=== PATIENT | male | born 1945 | race Hispanic/Latino ===

== ENCOUNTER 2016-08-31 10:46 | Observation (INO) | payer BC, MEDICARE, OTHER ==
--- NOTE | 2016-08-31 11:32 | ED PDOC ---
Arrival/HPI - General Time Seen by Provider: 08/31/16 11:09 Historian: Patient, Spouse - History of Present Illness Narrative History of Present Illness (Text): 08/31/16 11:34 Patient is a 71 year old male whose past medical history includes recently diagnosed esophageal CA, COPD (on 2L Home O2), and anxiety, who presents to the emergency department with headache, nausea, chills, and shortness of breath, worsening in the past few days. Patient states he has had these symptoms as far back as [facility] (two months ago) where he was evaluated at [facility]. Patient reports he had an endoscopy done about 3 weeks ago at [facility] where he had been on the list for a lung transplant for years (did not have transplant) and diagnosed with esophageal cancer while getting a routine imaging study. Patient reports he was admitted for low sodium at another hospital in [facility] over Weekend (two weeks ago) with similar symptoms as he is experiencing now. Over the past week he reports intermittent nausea associated with eating/drinking. He states last night he was able to eat dinner without difficulty. Patient states he saw his PMD the day after. Denies sore throat, chest pain, changes in bowel movements, diarrhea, abdominal pain, thyroid issues. PMD: Dr. Ruiz Time/Duration: < week Symptom Onset: Gradual Symptom Course: Unchanged Modifying Factors (Text): None Past Medical History - Provider Review Nursing Documentation Reviewed: Yes - Infectious Disease Hx of Infectious Diseases: None - Tetanus Immunization Tetanus Immunization: Unknown - Cardiac Hx Cardiac Disorders: No - Pulmonary Hx Respiratory Disorders: Yes Hx Chronic Obstructive Pulmonary Disease (COPD): Yes Hx Emphysema: Yes - Neurological Hx Neurological Disorder: No - HEENT Hx HEENT Disorder: No - Renal Hx Renal Disorder: No - Endocrine/Metabolic Hx Endocrine Disorders: No - Hematological/Oncological Hx Blood Disorders: No - Integumentary Hx Dermatological Disorder: Yes Hx Melanoma: Yes - Musculoskeletal/Rheumatological Hx Musculoskeletal Disorders: Yes Hx Arthritis: Yes Hx Back Pain: Yes Hx Falls: No Hx Fractures: Yes - Gastrointestinal Hx Gastrointestinal Disorders: No - Genitourinary/Gynecological Hx Genitourinary Disorders: No - Psychiatric Hx Psychophysiologic Disorder: No Hx Substance Use: No - Surgical History Hx Appendectomy: Yes - Anesthesia Hx Anesthesia: Yes Hx Anesthesia Reactions: No Hx Malignant Hyperthermia: No - Suicidal Assessment Feels Threatened In Home Enviroment: No Family/Social History - Physician Review Nursing Documentation Reviewed: Yes Family/Social History: Unknown Family HX Smoking Status: Former Smoker Hx Alcohol Use: Yes Hx Substance Use: No Hx Substance Use Treatment: No Allergies/Home Meds Allergies/Adverse Reactions: Allergies No Known Allergies Allergy (Verified 04/20/13 12:09) Home Medications: Home Meds Medication Instructions Recorded Confirmed Albuterol 0.09 mg IH Q6H 04/20/13 08/31/16 Alprazolam [Xanax] 0.25 mg PO BID PRN 04/20/13 08/31/16 Benzonatate 200 mg PO TID 04/20/13 08/31/16 Budesonide 0.5 mg IH DAILY 04/20/13 08/31/16 Calcium Carbonate/Vitamin D 1 tab PO DAILY 04/20/13 08/31/16 [Calcium 600/Vitamin D] Desloratadine [Clarinex] 5 mg PO DAILY 04/20/13 08/31/16 Diazepam [Valium] 5 mg PO DAILY 04/20/13 08/31/16 Doxycycline Hyclate [Vibra-Tabs] 100 mg PO DAILY 04/20/13 08/31/16 Fish Oil [[place]-3 Fish Oil] 1,200 mg PO DAILY 04/20/13 08/31/16 Fluticasone/Salmeterol [Advair 1 puff IH BID 04/20/13 08/31/16 250-50 Diskus] Multivitamin and Minerals1 1 tab PO DAILY 04/20/13 08/31/16 [Centrum] Promethazine/Codeine 1 tsp PO Q6H PRN 04/20/13 08/31/16 [Phenergan/Codeine Oral Syrup] Tiotropium [Spiriva] 18 mcg IH DAILY 04/20/13 08/31/16 Vitamin D 400 iu PO DAILY 04/20/13 08/31/16 ALPRAZolam [Xanax] 0.25 mg PO 08/31/16 Albuterol 0.083% [Albuterol 0.083% 08/31/16 Inhal Rylee (2.5 mg/3 ml) UD] Benzonatate 200 mg PO 08/31/16 Doxycycline Hyclate [Doryx] 100 mg PO 08/31/16 Fluticasone/Salmeterol 500/50 0 puff 08/31/16 [Advair Diskus 500/50] Levalbuterol Tartrate [Xopenex Hfa] 08/31/16 Levocetirizine Dihydrochloride 08/31/16 [Xyzal] Prednisone [Prednisone Intensol] 5 mg PO 08/31/16 Quinine Sulfate [Qualaquin] 08/31/16 Tiotropium [Spiriva] 18 mcg IH DAILY 08/31/16 08/31/16 Review of Systems - Review of Systems Constitutional: Fatigue, Other ("hot and cold") Eyes: absent: Vision Changes ENT: absent: Hearing Changes, Voice Changes, Sore Throat, Rhinorrhea Respiratory: SOB, Wheezing. absent: Cough Cardiovascular: Chest Pain, PEARSON. absent: Palpitations, Edema, Calf Pain Gastrointestinal: Nausea, Vomiting, Appetite Changes. absent: Abdominal Pain, Diarrhea, Hematochezia, Hematemesis, Food Intolerance Genitourinary Male: absent: Dysuria, Frequency Musculoskeletal: absent: Back Pain Skin: absent: Rash Neurological: Headache, Dizziness. absent: Focal Weakness Endocrine: Diaphoresis. absent: Polyuria, Polydipsia Hemo/Lymphatic: absent: Easy Bleeding, Easy Bruising Psychiatric: Anxiety, Depression. absent: Suicidal Ideation Physical Exam - Physical Exam Narrative Physical Exam (Text): Head: Atraumatic. Normocephalic. Eyes: PERRL. EOMI. Conjunctivae are not pale. ENT: Mucous membranes are moist and intact. Oropharynx is clear and symmetric. Neck: Supple. Full ROM. No JVD. No lymphadenopathy. No thyromegaly. Cardiovascular: Regular rate. Regular rhythm. Systolic murmur. Distal pulses are 2+ and symmetric. Pulmonary/Chest: Tachypneic. Diminished breath sounds bilaterally. Very mild wheezing Abdominal: Soft and non-distended. There is no tenderness. No rebound, guarding, or rigidity. No organomegaly. Good bowel sounds. Back: No CVA tenderness. Extremities: Generalized bony pain to bilateral lower extremities with no erythema or edema. No cyanosis. No clubbing. Full range of motion in all extremities. No calf tenderness. Skin: Skin is warm and dry. No petechiae. No purpura. Neurological: Alert, awake, and oriented to person, place, time, and situation. Normal speech. Motor and sensory intact. Psychiatric: Good eye contact. Normal interaction, affect, and behavior. 08/31/16 13:20 Vital Signs Reviewed: Yes Vital Signs Temp Pulse Resp BP Pulse Ox 08/31/16 11:42 98.8 F 85 22 122/58 L 96 08/31/16 10:47 98.4 F 89 20 122/58 L 95 Temperature: Afebrile Blood Pressure: Normal Pulse: Regular Respiratory Rate: Tachypneic Appearance: Positive for: Non-Toxic, Comfortable, Ill-Appearing, Cachectic Pain Distress: Mild Mental Status: Positive for: Alert and Oriented X 3 Medical Decision Making ED Course and Treatment: Differential Diagnosis included but are not limited to: Sepsis vs gastritis vs CAD vs metabolic disorder, vs. malignancy, vs. COPD Plan: Will obtain Chest X-ray, EKG, and labs. Communicate with PMD regarding recent labs. Nebulizer and iv steroids. Previous Records: --- Previous Imaging Studies Provided by Patient --- CT Chest w/o Contrast Location: [facility] Radiology Date: 06/29/16 Impression: Wedge-shaped area of right middle lobe consolidation potentially representing atelectasis it appears more prominent than previous CT scan in 2014. Further evaluation advised. PET scan should be considered. Circumferential thickening identified to the distal esophagus with significant wall thickening identified measuring up to 13 mm. Rule out esophageal mass. Endoscopy follow-up recommended. Rule out esophageal tumor. Moderate pulmonary emphysematous lung disease identified. Whole Body PET-CT Scan Location: [place] Date: 07/21/16 Impression: The triangle-shaped nodule at the medial segment of the right middle lobe is ametabolic, attributed to chronic atelectasis. There is no suspicion for primary lung mass. Mass involving the distal 7 cm of the esophagus. Metastitic lymph nodes at the right thoracic para-aortic region and at the upper abdominal gastroesophageal junction region. No hepatic lesions. Endoscopy Location: [facility] Date: 08/03/16 Impression: Superficial fragments of moderately differentiated invasive adenocarcinoma. --- Labs drawn on 08/21/[address] Ruiz's Office --- Sodium - 135 Hemoglobin - 10.4 WBC - 10.3 Progress Notes: Patient's history and physical performed with family member present. Patient and family report symptoms intermittently for several months, although they present to ED today reporting increased symptoms of weakness and shortness of breath over the past 24 hours, with intermittent nausea and chest/abdominal discomfort, typically associated with eating. He reportedly was able to eat scrambled eggs without pain or vomiting today. No recent change in medication. He reports "hot and cold" although currently afebrile with no leukocytosis, unremarkable lactic acid level. He has diminished breath sounds bilaterally, chest xray suggestive of atelctasis in right lobe vs. nodule, I did reviewe prior Chest ct reading report from 06/29/16 as provided by family. Nebulizer and iv steroids given for component of empysema/COPD in patient's history and exam. He has NO calf pain, NO pleuritic chest pain. Currently abdomen soft and nontender. Current exam not consistent with endocrine emergency, although patient at times appears to be more dyspneic WITHOUT pain which he attributed to "anxiety". I have discussed with patient hyponatremia and anemia, which has progressed from recent available labs provided by Dr. Ruiz's office. He denies any dark or bloody stools, denies hempotysis or hematemesis. Denies any choking episodes. Will admit for hyponatremia, likely symptomatic, exploration of underlying etiology, monitoring and treatment of respiratory status. Patient fluid restricted in ED, case discussed with hospitalist admitting for PMD. Treatment plan reviewed with patient and family. Labs and imaging studies reviewed with patient and family. 08/31/16 13:12 - Lab Interpretations Lab Results: 08/31/16 11:46 08/31/16 11:46 Lab Results 08/31/16 11:46: Sodium 126 L, Chloride 90 L, Potassium 3.9, Carbon Dioxide 29, Anion Gap 11, BUN 11, Creatinine 0.5, Est GFR ( Amer) > 60, Est GFR (Non- Af Amer) > 60, Random Glucose 109, Calcium 9.5, Magnesium 1.8, Total Bilirubin 0.7, AST 30, ALT 61 H, Alkaline Phosphatase 56, Lactate Dehydrogenase 288 L, Total Creatine Kinase 52, Troponin I < 0.01, NT-Pro-B Natriuret Pep 91.8, Total Protein 6.5, Albumin 3.8, Globulin 2.7, Albumin/Globulin Ratio 1.4 08/31/16 11:46: pO2 90 H, VBG pH 7.36, VBG pCO2 56.0, VBG HCO3 31.6 H, VBG Total CO2 33.3 H, VBG O2 Sat (Calc) 98.7 H, VBG Base Excess 4.6 H, VBG Potassium 4.2, Sodium 127.0 L, Chloride 94.0 L, Glucose 121 H, Lactate 1.3, FiO2 21.0, Venous Blood Potassium 4.2 08/31/16 11:46: PT 10.3, INR 0.95, APTT 28.4 08/31/16 11:46: WBC 7.7 D, RBC 3.47 L, Hgb 9.9 L, Hct 30.0 L, MCV 86.5, MCH 28.5, MCHC 33.0, RDW 13.6, Plt Count 314, MPV 9.0, Gran % 81.2 H, Lymph % (Auto ) 8.0 L, [place]cal[place] % (Auto) 8.5 H, Eos % (Auto) 1.9, Baso % (Auto) 0.4, Gran # 6.27, Lymph # 0.6 L, Metcalfe # 0.7 H, Eos # 0.2, Baso # 0.03 - RAD Interpretation Radiology Orders: 08/31/16 11:27 CHEST PORTABLE [RAD] Stat - Medication Orders Current Medication Orders: Discontinued Medications Albuterol/Ipratropium (Duoneb 3 Mg/0.5 Mg (3 Ml) Ud) 3 ml IH STAT STA Stop: 08/31/16 11:52 Last Admin: 08/31/16 12:24 Dose: 3 ml Methylprednisolone (Solu-Medrol) 125 mg IVP STAT STA Stop: 08/31/16 11:52 Last Admin: 08/31/16 12:24 Dose: 125 mg - Anjuibe Statement The provider has reviewed the documentation as recorded by the Sarah De Leon Provider Scribe Attestation: All medical record entries made by the Sarah were at my direction and personally dictated by me. I have reviewed the chart and agree that the record accurately reflects my personal performance of the history, physical exam, medical decision making, and the department course for this patient. I have also personally directed, reviewed, and agree with the discharge instructions and disposition. Disposition/Present on Arrival - Present on Arrival Any Indicators Present on Arrival: No History of DVT/PE: No History of Uncontrolled Diabetes: No Urinary Catheter: No History Surgical Site Infection Following: None - Disposition Have Diagnosis and Disposition been Completed?: Yes Diagnosis: COPD (chronic obstructive pulmonary disease), Hyponatremia, Anemia, Nausea, Dyspnea, Chest discomfort Disposition: HOSPITALIZED Disposition Time: 12:15 Patient Plan: Admission Patient Problems: Current Active Problems Problem Status Onset Anemia Acute COPD (chronic obstructive pulmonary disease) Acute Chest discomfort Acute Dyspnea Acute Hyponatremia Acute Nausea Acute Condition: SERIOUS
[2016-08-31 11:47] LABS: ADD MANUAL DIFF? NO
[2016-08-31 11:48] VITALS: BMI 21.5
[2016-08-31] MEDS ORDERED: Albuterol-Ipratrop 3 mg / 0.5 (3 ml) UD IH STA (11:51)
[2016-08-31 11:52] LABS: BASO # 0.03 K/mm3 (0.0-2.0); BASO % 0.4 % (0.0-3.0); EOS # 0.2 (0.0-0.7); EOS % 1.9 % (1.5-5.0); GRAN # 6.27 (1.4-6.5); GRAN % 81.2 % (50.0-68.0); LYMPH # 0.6 (1.2-3.4); MEAN CELL VOLUME 86.5 fL (80.0-105.0); MEAN CORPUSCULAR HEMOGLOBIN 28.5 pg (25.0-35.0); MONO # 0.7 (0.1-0.6); MONO % 8.5 % (1.0-6.0); PLATELET COUNT 314 10^3/uL (120.0-450.0); RED CELL DISTRIBUTION WIDTH 13.6 % (11.5-14.5); WHITE BLOOD COUNT 7.7 10^3/ul (4.5-11.0)
[2016-08-31 12:00] LABS: VENOUS BLOOD GAS BASE EXCESS 4.6 mmol/L (0.0-2.0); VENOUS BLOOD PH 7.36 (7.32-7.43)
[2016-08-31 12:03] LABS: INR 0.95 (0.93-1.08); PARTIAL THROMBOPLASTIN TIME 28.4 Seconds (23.7-30.8)
[2016-08-31 12:07] LABS: ALB/GLOB RATIO 1.4 (1.1-1.8); ALKALINE PHOSPHATASE 56 U/L (38-133); ALT/SGPT 61 U/L (7-56); AST/SGOT 30 U/L (15-59); BILIRUBIN,TOTAL 0.7 mg/dL (0.2-1.3); BLOOD UREA NITROGEN 11 mg/dL (7-21); CALCIUM 9.5 mg/dL (8.4-10.5); CARBON DIOXIDE 29 mmol/L (21-33); CHLORIDE 90 mmol/L (98-107); GFR AFRICAN-AMERICAN > 60; GLUCOSE,RANDOM 109 mg/dL (70-110); MAGNESIUM 1.8 mg/dL (1.7-2.2); POTASSIUM 3.9 mmol/L (3.6-5.0); SODIUM 126 mmol/L (132-148); TOTAL PROTEIN 6.5 g/dL (5.8-8.3)
[2016-08-31 12:21] LABS: TROPONIN I < 0.01 ng/mL
--- NOTE | 2016-08-31 13:05 | RAD ---
HISTORY: sob COMPARISON: 05/02/2014 FINDINGS: LUNGS: Minimal patchy infiltrate or nodule of the right lung base. PLEURA: No significant pleural effusion identified, no pneumothorax apparent. CARDIOVASCULAR: Normal. OSSEOUS STRUCTURES: No significant abnormalities. VISUALIZED UPPER ABDOMEN: Normal. OTHER FINDINGS: None. IMPRESSION: Minimal patchy infiltrate or nodule of the right lung base. The study is otherwise unremarkable
[2016-08-31 13:53] LABS: PH,URINE 6.5 (4.7-8.0); URINE BILIRUBIN NEGATIVE (NEGATIVE); URINE BLOOD NEGATIVE (NEGATIVE); URINE GLUCOSE (UA) NEGATIVE (NEGATIVE); URINE KETONE NEGATIVE (NEGATIVE); URINE LEUKOCYTE ESTERASE NEGATIVE Leu/uL (NEGATIVE); URINE PROTEIN NEGATIVE mg/dL (<30 mg/dL); URINE UROBILINOGEN 0.2 E.U./dL (<1 E.U./dL)
[2016-08-31 13:54] LABS: URINE APPEARANCE CLEAR (CLEAR); URINE COLOR YELLOW (YELLOW)
[2016-08-31] MEDS ORDERED: Albuterol-Ipratrop 3 mg / 0.5 (3 ml) UD IH PRN (14:21)
--- NOTE | 2016-08-31 14:29 | CP.PCM.HP ---
<Lina Howard - Last Filed: 08/31/16 15:05> History of Present Illness - History of Present Illness History of Present Illness: 71 M with PMHx of end stage COPD (on 2L Home O2) and invasive esophageal carcinoma presented to the [facility] ED with complaints of worsening sob, nausea and weakness. Pt has been experiencing these symptoms intermittently for the past couple of months, however, his symptoms have been worsening over the past couple of days. Patient reports he had an endoscopy done about 3 weeks ago at [facility] where he had been on the list for a lung transplant for years (did not have transplant on account of recent dx of esophageal cancer). Patient reports he was admitted for low sodium at another hospital in [facility] two weeks ago with similar symptoms as he is experiencing now. Over the past week he reports intermittent nausea associated with eating/drinking, however he denied any difficulty with swallowing. He admitted to chills, nausea, weakness, and sob. He denied fever, chest pains, abdominal pains, v/d/c/ or urinary symptoms. PMHx: COPD, Invasive esophageal ca, melanoma PSHx: appendectomy FamHx: Noncontributory SHx: Former smoker quit 10 years ago, denied etoh and illicit drugs Meds: Mar reviewed Allergies: NKDA PMD: Dr. Ruiz Present on Admission - Present on Admission Any Indicators Present on Admission: No Review of Systems - Review of Systems Review of Systems: as per HPI otherwise negative Past Patient History - Infectious Disease Hx of Infectious Diseases: None - Tetanus Immunizations Tetanus Immunization: Unknown - Past Social History Smoking Status: Former Smoker - CARDIAC Hx Cardiac Disorders: No - PULMONARY Hx Respiratory Disorders: Yes Hx Chronic Obstructive Pulmonary Disease (COPD): Yes Hx Emphysema: Yes - NEUROLOGICAL Hx Neurological Disorder: No - HEENT Hx HEENT Problems: No - RENAL Hx Chronic Kidney Disease: No - ENDOCRINE/METABOLIC Hx Endocrine Disorders: No - HEMATOLOGICAL/ONCOLOGICAL Hx Blood Disorders: No - INTEGUMENTARY Hx Dermatological Problems: Yes Hx Melanoma: Yes - MUSCULOSKELETAL/RHEUMATOLOGICAL Hx Musculoskeletal Disorders: Yes Hx Arthritis: Yes Hx Back Pain: Yes Hx Falls: No Hx Fractures: Yes - GASTROINTESTINAL Hx Gastrointestinal Disorders: No - GENITOURINARY/GYNECOLOGICAL Hx Genitourinary Disorders: No - PSYCHIATRIC Hx Psychophysiologic Disorder: No Hx Substance Use: No - SURGICAL HISTORY Hx Appendectomy: Yes - ANESTHESIA Hx Anesthesia: Yes Hx Anesthesia Reactions: No Hx Malignant Hyperthermia: No Meds Allergies/Adverse Reactions: Allergies Allergy/AdvReac Type Severity Reaction Status Date / Time No Known Allergies Allergy Verified 04/20/13 12:09 Physical Exam - Constitutional Appears: No Acute Distress - Head Exam Head Exam: ATRAUMATIC, NORMAL INSPECTION, NORMOCEPHALIC - Eye Exam Eye Exam: EOMI, Normal appearance, PERRL Pupil Exam: NORMAL ACCOMODATION, PERRL - ENT Exam ENT Exam: Mucous Membranes Moist, Normal Exam - Neck Exam Neck exam: Positive for: Normal Inspection - Respiratory Exam Respiratory Exam: Decreased Breath Sounds, Clear to Auscultation Bilateral, NORMAL BREATHING PATTERN - Cardiovascular Exam Cardiovascular Exam: REGULAR RHYTHM, +S1, +S2 - GI/Abdominal Exam GI & Abdominal Exam: Normal Bowel Sounds, Soft. absent: Tenderness - Extremities Exam Extremities exam: Positive for: normal inspection - Back Exam Back exam: NORMAL INSPECTION - Neurological Exam Neurological exam: Alert, CN II-XII Intact, Oriented x3, Reflexes Normal - Psychiatric Exam Psychiatric exam: Normal Affect, Normal Mood - Skin Skin Exam: Dry, Intact, Normal Color, Warm Results - Vital Signs Recent Vital Signs: Last Vital Signs Temp 98.8 F 08/31/16 11:42 Pulse 87 08/31/16 13:43 Resp 16 08/31/16 13:43 BP 126/57 L 08/31/16 13:43 Pulse Ox 95 08/31/16 13:43 - Labs Result Diagrams: 08/31/16 11:46 08/31/16 11:46 Labs: Laboratory Results - last 24 hr 08/31/16 13:45 Urine Color Yellow Urine Appearance Clear Urine pH 6.5 Ur Specific [place] 1.015 Urine Protein Negative Urine Glucose (UA) Negative Urine Ketones Negative Urine Blood Negative Urine Nitrate Negative Urine Bilirubin Negative Urine Urobilinogen 0.2 Ur Leukocyte Esterase Negative Assessment & Plan - Assessment and Plan (Free Text) Assessment: 71 M with PMHx of end stage COPD (on 2L Home O2) and invasive esophageal carcinoma presented to the [facility] ED with complaints of worsening sob, nausea and weakness admitted for mild worsening of COPD, nausea, and hyponatremia. 1. Mild worsening of COPD - solumedrol 40 iv daily - duonebs - taper steroids tomorrow - Pulmonary consult, Dr. Osborn - No wheezing 2. Nausea - likely 2/2 esophageal ca - tolerating po intake, no regurgitation of food (may need stent in future) - Zofran 4mgq4h 3. Hyponatremia - Na: 128, 2/2 nausea - fluid restrict 1500ml - UA - U lytes - Uosm 4. Esophageal Ca - palliative care consult - CM for home health DVT GI ppx Seen reviewed and discussed with attending <Rico WEINBERG,Jesika - Last Filed: 08/31/16 17:03> Results - Vital Signs Recent Vital Signs: Last Vital Signs Temp 98.8 F 08/31/16 11:42 Pulse 86 08/31/16 14:30 Resp 17 08/31/16 14:30 BP 118/59 L 08/31/16 14:30 Pulse Ox 95 08/31/16 14:30 - Labs Result Diagrams: 08/31/16 11:46 08/31/16 11:46 Labs: Laboratory Results - last 24 hr 08/31/16 08/31/16 13:45 14:50 Urine Color Yellow Urine Appearance Clear Urine pH 6.5 Ur Specific [place] 1.015 Urine Protein Negative Urine Glucose (UA) Negative Urine Ketones Negative Urine Blood Negative Urine Nitrate Negative Urine Bilirubin Negative Urine Urobilinogen 0.2 Ur Leukocyte Esterase Negative Urine Osmolality 397 Ur Random Sodium 79 Ur Random Potassium 26.1 Attending/Attestation - Attestation I have personally seen and examined this patient.: Yes I have fully participated in the care of the patient.: Yes I have reviewed all pertinent clinical information: Yes Notes (Text): 08/31/16 16:58 Patient was seen and examined with electromedical equipment technician .Agreed with resident assessment and plan. 71 M with PMHx of chronic hypoxic Resp Failure due to end stage COPD (on 2L Home O2) and invasive esophageal carcinoma was admitted with worsening dyspnea and generalized weakness, found to have COPD exacerbation and hyponatremia.Agreed with Neb/IV steroid fro COPD exacerbation Hyponatremia is chronic, patient is euvolemic, will start on fluid restriction and will do hyponatremia work up. Patient is nauseated but able to eat and there is no dysphagia as per patient and , will treat symptomatically, no need for any esophageal stent at this time. Patient is DNI , but not DNR. Prognosis is guarded. Management plan was discussed in detail with patient Education was provided.
[2016-08-31] MEDS: Enoxaparin 30 mg Syringe SC SCH (14:55)
[2016-08-31] MEDS ORDERED: BENZONATATE 200 MG PO SCH (18:00)
[2016-08-31] MEDS ORDERED: Pneumococcal 23-Valent Vaccine IM ONE (18:20)
[2016-08-31] MEDS: Albuterol-Ipratrop 3 mg / 0.5 (3 ml) UD IH SCH (20:09)
[2016-09-01] MEDS: Albuterol-Ipratrop 3 mg / 0.5 (3 ml) UD IH SCH ×6 (01:38→20:24)
[2016-09-01 07:49] LABS: ADD MANUAL DIFF? NO
[2016-09-01 07:59] LABS: EOS % 0.2 % (1.5-5.0); GRAN # 7.72 (1.4-6.5); GRAN % 79.1 % (50.0-68.0); HEMATOCRIT 28.2 % (42.0-52.0); LYMPH % 10.1 % (22.0-35.0); MEAN CORPUSCULAR HEMOGLOBIN 28.7 pg (25.0-35.0); MEAN CORPUSCULAR HGB CONC 33.3 g/dl (31.0-37.0); MEAN PLATELET VOLUME 8.8 fl (7.0-11.0); MONO % 10.6 % (1.0-6.0); PLATELET COUNT 300 10^3/uL (120.0-450.0); RED CELL DISTRIBUTION WIDTH 13.4 % (11.5-14.5); WHITE BLOOD COUNT 9.8 10^3/ul (4.5-11.0)
[2016-09-01 08:17] LABS: ALB/GLOB RATIO 1.5 (1.1-1.8); ALKALINE PHOSPHATASE 45 U/L (38-133); ALT/SGPT 57 U/L (7-56); AST/SGOT 24 U/L (15-59); BILIRUBIN,TOTAL 0.5 mg/dL (0.2-1.3); BLOOD UREA NITROGEN 9 mg/dL (7-21); CALCIUM 9.7 mg/dL (8.4-10.5); CARBON DIOXIDE 31 mmol/L (21-33); CHLORIDE 91 mmol/L (95-110); GFR AFRICAN-AMERICAN > 60; GLUCOSE,RANDOM 108 mg/dL (70-110); POTASSIUM 4.1 mmol/L (3.6-5.0); SODIUM 128 mmol/L (132-148); TOTAL PROTEIN 5.9 g/dL (5.8-8.3)
[2016-09-01] MEDS ORDERED: Budesonide 0.5 mg/2 ml Inhal Susp UD IH SCH (10:00)
[2016-09-01] MEDS ORDERED: [UNRECOGNIZED DRUG - OTHER] PO SCH (10:00)
[2016-09-01] MEDS ORDERED: CALCIUM CARBONATE PO SCH (10:00)
[2016-09-01] MEDS ORDERED: BUDESONIDE 0.5 MG IH SCH (10:00)
[2016-09-01] MEDS ORDERED: FISH OIL 1200 MG PO SCH (10:00)
[2016-09-01] MEDS ORDERED: VITAMIN D PO SCH ×2 (10:00)
[2016-09-01] MEDS ORDERED: DESLORATADINE 5 MG PO SCH (10:00)
--- NOTE | 2016-09-01 10:30 | CP.PCM.PN ---
Subjective - Date & Time of Evaluation Date of Evaluation: 09/01/16 Time of Evaluation: 10:25 - Subjective Subjective: Patient was seen and examined with medical affairs specialist Patient is c/o dyspnea and cough.He is afebrile, not in acute distress.Denies chest pain or palpitation Objective - Vital Signs/Intake and Output Vital Signs (last 24 hours): Temp Pulse Resp BP Pulse Ox 98.0 F 82 20 113/63 90 L 09/01/16 06:00 09/01/16 06:00 09/01/16 06:00 09/01/16 06:00 09/01/16 06:00 Intake and Output: 09/01/16 09/01/16 06:59 18:59 Intake Total 60 Output Total 500 Balance -440 - Medications Medications: Current Medications Albuterol/Ipratropium (Duoneb 3 Mg/0.5 Mg (3 Ml) Ud) 3 ml IH Q2H PRN PRN Reason: Shortness of Breath Albuterol/Ipratropium (Duoneb 3 Mg/0.5 Mg (3 Ml) Ud) 3 ml IH [id number] [facility] Last Admin: 09/01/16 07:49 Dose: 3 ml Alprazolam (Xanax) 0.25 mg PO BID PRN; Protocol PRN Reason: Anxiety Stop: 09/07/16 14:53 Last Admin: 08/31/16 20:59 Dose: 0.25 mg Benzonatate (Tessalon Perles) 200 mg PO TID [facility] Last Admin: 08/31/16 17:36 Dose: 200 mg Budesonide (Pulmicort Respules) 0.5 mg IH DAILY [facility] Enoxaparin Sodium (Lovenox) 30 mg SC DAILY [facility] PRN Reason: Protocol Last Admin: 08/31/16 14:55 Dose: 30 mg Methylprednisolone (Solu-Medrol) 40 mg IVP DAILY [facility] Multivitamins/Minerals (Therapeutic-M Tab) 1 tab PO DAILY [facility] Non-Formulary Medication (Calcium Carbonate/Vitamin D [Calcium 600/Vitamin D]) 1 tab PO DAILY [facility] Non-Formulary Medication (Desloratadine [Clarinex]) 5 mg PO DAILY [facility] Non-Formulary Medication (Fish Oil [[place]-3 Fish Oil]) 1,200 mg PO DAILY [facility] Ondansetron HCl (Zofran Inj) 4 mg IVP Q4H PRN PRN Reason: Nausea/Vomiting Pantoprazole Sodium (Protonix Inj) 40 mg IVP DAILY [facility] Last Admin: 08/31/16 14:55 Dose: 40 mg Tiotropium [place] (Spiriva) 18 mcg IH DAILY [facility] Vitamin D (Vitamin D 400 Intl Units Tab) 400 intlu PO DAILY [facility] - Labs Labs: 09/01/16 07:46 09/01/16 07:46 PT 10.3 Seconds (9.9-11.8) 08/31/16 11:46 INR 0.95 (0.93-1.08) 08/31/16 11:46 APTT 28.4 Seconds (23.7-30.8) 08/31/16 11:46 - Constitutional Appears: Non-toxic, No Acute Distress - Neck Exam Neck Exam: Full ROM, Normal Inspection - Respiratory Exam Respiratory Exam: Decreased Breath Sounds, Wheezes - Cardiovascular Exam Cardiovascular Exam: REGULAR RHYTHM - GI/Abdominal Exam GI & Abdominal Exam: Soft Additional comments: no tenderness - Extremities Exam Additional comments: No edema, no cynosis or clubbing - Neurological Exam Neurological Exam: Alert, Awake, Oriented x3 Additional comments: non focal Assessment and Plan - Assessment and Plan (Free Text) Plan: 71 M with PMHx of chronic hypoxic Resp Failure due to end stage COPD (on 2L Home O2) and invasive esophageal carcinoma , is admitted with COPD exacerbation and hyponatremia. 1. COPD Exacerbation Patient is still wheezing, we will continue nebulization, and IV methlprednisonlon, we will also start on levofloxacin.Pulmonary is also consulted. 2. Hyponatremia is chronic, patient is euvolemic, urine osmolality is 397, urine sodium is 79, likely due to SIAD Hyponatremia is improving, we will continue fluid restriction.Patient is asymptometic 3. Patient is nauseated but able to eat and there is no dysphagia able to tolerate food, will treat symptomatically, no need for any esophageal stent at this time. Patient is DNI , but not DNR. Prognosis is guarded. Management plan was discussed in detail with patient Education was provided.
[2016-09-01] MEDS: Cholecalciferol 400 Intl Units Tab PO SCH (10:42)
[2016-09-01] MEDS: Multivitamin With Minerals Tab PO SCH (10:42)
[2016-09-01] MEDS: Enoxaparin 30 mg Syringe SC SCH (10:43)
[2016-09-01] MEDS: MethylPREDNISolone 40 mg Vial IVP SCH (10:43)
[2016-09-01] MEDS: Tiotropium 18 mcg Cap For Inhalation IH SCH (10:43)
[2016-09-01] MEDS: levoFLOXacin 500 MG TAB PO SCH (10:44)
--- NOTE | 2016-09-01 16:09 | CARD ---
APPROVED REPORT EKG Measurement Heart [id number] <Conclusion> Normal sinus rhythm Normal ECG
[2016-09-02] MEDS: Albuterol-Ipratrop 3 mg / 0.5 (3 ml) UD IH SCH ×4 (04:00→11:43)
[2016-09-02 06:32] VITALS: O2SAT 97
[2016-09-02 07:49] LABS: ADD MANUAL DIFF? NO
[2016-09-02 08:15] LABS: BASO # 0.01 K/mm3 (0.0-2.0); BASO % 0.1 % (0.0-3.0); EOS # 0.1 (0.0-0.7); EOS % 0.7 % (1.5-5.0); GRAN # 4.81 (1.4-6.5); GRAN % 66.3 % (50.0-68.0); HEMATOCRIT 28.9 % (42.0-52.0); LYMPH # 1.5 (1.2-3.4); LYMPH % 20.3 % (22.0-35.0); MEAN CELL VOLUME 86.3 fL (80.0-105.0); MEAN CORPUSCULAR HEMOGLOBIN 28.1 pg (25.0-35.0); MEAN CORPUSCULAR HGB CONC 32.5 g/dl (31.0-37.0); MEAN PLATELET VOLUME 9.1 fl (7.0-11.0); MONO # 0.9 (0.1-0.6); MONO % 12.6 % (1.0-6.0); PLATELET COUNT 322 10^3/uL (120.0-450.0); RED CELL DISTRIBUTION WIDTH 13.4 % (11.5-14.5); WHITE BLOOD COUNT 7.3 10^3/ul (4.5-11.0)
[2016-09-02 08:24] LABS: ALB/GLOB RATIO 1.6 (1.1-1.8); ALKALINE PHOSPHATASE 48 U/L (38-133); ALT/SGPT 55 U/L (7-56); AST/SGOT 24 U/L (15-59); BILIRUBIN,TOTAL 0.5 mg/dL (0.2-1.3); BLOOD UREA NITROGEN 12 mg/dL (7-21); CALCIUM 9.4 mg/dL (8.4-10.5); CARBON DIOXIDE 32 mmol/L (21-33); CHLORIDE 89 mmol/L (95-110); GFR AFRICAN-AMERICAN > 60; GLUCOSE,RANDOM 95 mg/dL (70-110); POTASSIUM 4.1 mmol/L (3.6-5.0); SODIUM 127 mmol/L (132-148)
[2016-09-02] MEDS: Cholecalciferol 400 Intl Units Tab PO SCH (09:19)
[2016-09-02] MEDS: Multivitamin With Minerals Tab PO SCH (09:20)
[2016-09-02] MEDS: Tiotropium 18 mcg Cap For Inhalation IH SCH (09:20)
[2016-09-02] MEDS: levoFLOXacin 500 MG TAB PO SCH (09:21)
[2016-09-02] MEDS: MethylPREDNISolone 40 mg Vial IVP SCH (09:22)
[2016-09-02] MEDS: Enoxaparin 30 mg Syringe SC SCH (09:22)
--- NOTE | 2016-09-02 12:33 | CP.PCM.DIS ---
Provider - Provider Date of Admission: 08/31/16 12:37 Attending physician: Kesha Bolton MD Primary care physician: Ricardo Ruiz MD Hospital Course - Lab Results Lab Results: Micro Results 08/31/16 13:45 Urine Urine Culture - Final No Growth (<1,000 CFU/ML) Most Recent Lab Values WBC 7.3 10^3/ul (4.5-11.0) D 09/02/16 07:47 RBC 3.35 10^6/uL (3.5-6.1) L 09/02/16 07:47 Hgb 9.4 gm/dL (14.0-18.0) L 09/02/16 07:47 Hct 28.9 % (42.0-52.0) L 09/02/16 07:47 MCV 86.3 fL (80.0-105.0) 09/02/16 07:47 MCH 28.1 pg (25.0-35.0) 09/02/16 07:47 MCHC 32.5 g/dl (31.0-37.0) 09/02/16 07:47 RDW 13.4 % (11.5-14.5) 09/02/16 07:47 Plt Count 322 10^3/uL (120.0-450.0) 09/02/16 07:47 MPV 9.1 fl (7.0-11.0) 09/02/16 07:47 Gran % 66.3 % (50.0-68.0) 09/02/16 07:47 Lymph % (Auto) 20.3 % (22.0-35.0) L 09/02/16 07:47 [place] % (Auto) 12.6 % (1.0-6.0) H 09/02/16 07:47 Eos % (Auto) 0.7 % (1.5-5.0) L 09/02/16 07:47 Baso % (Auto) 0.1 % (0.0-3.0) 09/02/16 07:47 Gran # 4.81 (1.4-6.5) 09/02/16 07:47 Lymph # 1.5 (1.2-3.4) 09/02/16 07:47 [place] # 0.9 (0.1-0.6) H 09/02/16 07:47 Eos # 0.1 (0.0-0.7) 09/02/16 07:47 Baso # 0.01 K/mm3 (0.0-2.0) 09/02/16 07:47 PT 10.3 Seconds (9.9-11.8) 08/31/16 11:46 INR 0.95 (0.93-1.08) 08/31/16 11:46 APTT 28.4 Seconds (23.7-30.8) 08/31/16 11:46 pO2 90 mm/Hg (30-55) H 08/31/16 11:46 VBG pH 7.36 (7.32-7.43) 08/31/16 11:46 VBG pCO2 56.0 (40-60) 08/31/16 11:46 VBG HCO3 31.6 mmol/l (21-28) H 08/31/16 11:46 VBG Total CO2 33.3 mmol.L (22-28) H 08/31/16 11:46 VBG O2 Sat (Calc) 98.7 % (40-65) H 08/31/16 11:46 VBG Base Excess 4.6 mmol/L (0.0-2.0) H 08/31/16 11:46 VBG Potassium 4.2 mmol/L (3.6-5.2) 08/31/16 11:46 Sodium 127.0 mmol/L (132-148) L 08/31/16 11:46 Chloride 94.0 mmol/L (98-107) L 08/31/16 11:46 Glucose 121 mg/dl (75-110) H 08/31/16 11:46 Lactate 1.3 mmol/L (0.7-2.1) 08/31/16 11:46 FiO2 21.0 % 08/31/16 11:46 Sodium 127 mmol/L (132-148) L 09/02/16 07:45 Potassium 4.1 mmol/L (3.6-5.0) 09/02/16 07:45 Chloride 89 mmol/L (95-110) L 09/02/16 07:45 Carbon Dioxide 32 mmol/L (21-33) 09/02/16 07:45 Anion Gap 10 (10-20) 09/02/16 07:45 BUN 12 mg/dL (7-21) 09/02/16 07:45 Creatinine 0.5 mg/dL (0.5-1.4) 09/02/16 07:45 Est GFR ( Amer) > 60 09/02/16 07:45 Est GFR (Non-Af Amer) > 60 09/02/16 07:45 Random Glucose 95 mg/dL (70-110) 09/02/16 07:45 Calcium 9.4 mg/dL (8.4-10.5) 09/02/16 07:45 Magnesium 1.8 mg/dL (1.7-2.2) 08/31/16 11:46 Total Bilirubin 0.5 mg/dL (0.2-1.3) 09/02/16 07:45 AST 24 U/L (15-59) 09/02/16 07:45 ALT 55 U/L (7-56) 09/02/16 07:45 Alkaline Phosphatase 48 U/L (38-133) 09/02/16 07:45 Lactate Dehydrogenase 288 U/L (333-699) L 08/31/16 11:46 Total Creatine Kinase 52 U/L (35-230) 08/31/16 11:46 Troponin I < 0.01 ng/mL 08/31/16 11:46 NT-Pro-B Natriuret Pep 91.8 pg/mL (0-450) 08/31/16 11:46 Total Protein 6.0 g/dL (5.8-8.3) 09/02/16 07:45 Albumin 3.6 g/dL (3.0-4.8) 09/02/16 07:45 Globulin 2.3 gm/dL 09/02/16 07:45 Albumin/Globulin Ratio 1.6 (1.1-1.8) 09/02/16 07:45 Venous Blood Potassium 4.2 mmol/L (3.6-5.2) 08/31/16 11:46 Urine Color Yellow (YELLOW) 08/31/16 13:45 Urine Appearance Clear (CLEAR) 08/31/16 13:45 Urine pH 6.5 (4.7-8.0) 08/31/16 13:45 Ur Specific Sims 1.015 (1.005-1.035) 08/31/16 13:45 Urine Protein Negative mg/dL (<30 mg/dL) 08/31/16 13:45 Urine Glucose (UA) Negative mg/dL (NEGATIVE) 08/31/16 13:45 Urine Ketones Negative mg/dL (NEGATIVE) 08/31/16 13:45 Urine Blood Negative (NEGATIVE) 08/31/16 13:45 Urine Nitrate Negative (NEGATIVE) 08/31/16 13:45 Urine Bilirubin Negative (NEGATIVE) 08/31/16 13:45 Urine Urobilinogen 0.2 E.U./dL (<1 E.U./dL) 08/31/16 13:45 Ur Leukocyte Esterase Negative Matthew/uL (NEGATIVE) 08/31/16 13:45 Urine Osmolality 397 mosm/kg (50-645) 08/31/16 14:50 Ur Random Sodium 79 meq/L 08/31/16 14:50 Ur Random Potassium 26.1 meq/L 08/31/16 14:50 Discharge Exam - Head Exam Head Exam: ATRAUMATIC, NORMAL INSPECTION, NORMOCEPHALIC Discharge Plan - Discharge Medications Prescriptions: levoFLOXacin [Levaquin] 500 mg PO DAILY #5 tab Methylprednisolone [Medrol Dose Pack (21 tabs)] See Taper PO DAILY #21 mg - Follow Up Plan Condition: SERIOUS Disposition: HOME/ ROUTINE Instructions: Hyponatremia (DC), Hyponatremia (GEN) Additional Instructions: 1. Pt is to fu with PMD Dr. Ruiz within 1 week 2. Pt is to fu with pulm as per PMD within 1 week 3. Pt is welcomed to return to [facility] ED if develop any acute symptoms Referrals: Ricardo Ruiz MD [Primary Care Provider] -
[2016-09-02 12:50] VITALS: BP 108/59; PULSE 117; RESP 21; TEMP 98.2
== END 2016-09-02 14:04 | disposition home or self-care (01) ==
LOC: ED 10:46 → ERH 12:37 → INTOOBSV 12:37 → ERH 14:41 → 2RSO 15:23
PROVIDERS: ADMIT Internal Medicine; ATTEND Internal Medicine
DX: J44.1 Chronic obstructive pulmonary disease with (acute) exacerbation (principal); C15.9 Malignant neoplasm of esophagus, unspecified; Z99.81 Dependence on supplemental oxygen; E87.1 Hypo-osmolality and hyponatremia; D64.9 Anemia, unspecified; Z90.49 Acquired absence of other specified parts of digestive tract; Z79.51 Long term (current) use of inhaled steroids; Z76.82 Awaiting organ transplant status; Z85.820 Personal history of malignant melanoma of skin; Z87.891 Personal history of nicotine dependence
CPT/HCPCS: 36415; 71010; 80053; 81003; 82436; 82550; 82803; 83615; 83735; 83880; 83935; 84132; 84300; 84484; 85025; 85610; 85730; 87040; 87086; 93005; 94640; 94760; 96372; 96374; 96375; 99285; C9113; G0378; J1650; J2920; J2930

== ENCOUNTER 2016-12-25 19:46 | Inpatient (IN) | payer OTHER, MEDICARE ==
[2016-12-25 19:50] VITALS: BMI 19.9
[2016-12-25] MEDS ORDERED: Midazolam 5 MG/5 ML VIAL IVP ONE (19:59)
[2016-12-25] MEDS ORDERED: Sodium Chloride 0.9% 1,000 ML IV STA (20:02)
[2016-12-25 20:10] LABS: BASO # 0.02 K/mm3 (0.0-2.0); BASO % 0.1 % (0.0-3.0); GRAN # 18.04 (1.4-6.5); GRAN % 88.4 % (50.0-68.0); HEMATOCRIT 33.9 % (42.0-52.0); LYMPH # 0.8 (1.2-3.4); MEAN CELL VOLUME 79.6 fl (80.0-105.0); MEAN CORPUSCULAR HEMOGLOBIN 25.4 pg (25.0-35.0); MEAN CORPUSCULAR HGB CONC 31.9 g/dl (31.0-37.0); MEAN PLATELET VOLUME 8.7 fl (7.0-11.0); MONO # 1.5 (0.1-0.6); MONO % 7.5 % (1.0-6.0); PLATELET COUNT 305 10^3/uL (120.0-450.0); RED CELL DISTRIBUTION WIDTH 18.1 % (11.5-14.5); WHITE BLOOD COUNT 20.4 10^3/ul (4.5-11.0)
[2016-12-25] MEDS: Albuterol-Ipratrop 3 mg / 0.5 (3 ml) UD IH SCH ×3 (20:16→21:45)
--- NOTE | 2016-12-25 20:18 | ED PDOC ---
Arrival/HPI - General Chief Complaint: Shortness Of Breath Time Seen by Provider: 12/25/16 19:49 Historian: Patient - History of Present Illness Narrative History of Present Illness (Text): 12/25/16 20:17 A 71 year old male, whose past medical history includes emphysema and esophageal cancer (just finished radiation), on 2 L oxygen, presents to the emergency department complaining of shortness of breath that developed today. Patient also reports he has difficulty coughing. He states when he rolled over bed he may have pulled a muscle in his back. Patient reports a fever of 101 today and took Tylenol about an hour and a half ago. Denies any other complaints at this time. PMD: Dr. Ruiz Symptom Onset: Sudden Symptom Course: Unchanged Activities at Onset: Rest Context: Home Past Medical History - Provider Review Nursing Documentation Reviewed: Yes - Infectious Disease Hx of Infectious Diseases: None - Tetanus Immunization Tetanus Immunization: Unknown - Cardiac Hx Cardiac Disorders: No - Pulmonary Hx Respiratory Disorders: Yes (has home o2) Hx Chronic Obstructive Pulmonary Disease (COPD): Yes Hx Emphysema: Yes Other/Comment: pt was on lung transplant list at [facility] but was recently dx with esophageal ca, so he can no longer be on the list - Neurological Hx Neurological Disorder: No - HEENT Hx HEENT Disorder: Yes (reading glasses) Hx Cataracts: Yes (b/l cat sx) Other/Comment: voice hoarse - Renal Hx Renal Disorder: No - Endocrine/Metabolic Hx Endocrine Disorders: No - Hematological/Oncological Hx Cancer: Yes (recently dx with esophageal ca) - Integumentary Hx Dermatological Disorder: Yes Hx Basal Cell Carcinoma: Yes (removed from back) Hx Melanoma: Yes (removed from back) - Musculoskeletal/Rheumatological Hx Falls: No - Gastrointestinal Hx Gastrointestinal Disorders: No - Genitourinary/Gynecological Hx Genitourinary Disorders: No - Psychiatric Hx Anxiety: Yes Hx Substance Use: No - Surgical History Hx Appendectomy: Yes - Anesthesia Hx Anesthesia: Yes Hx Anesthesia Reactions: No Hx Malignant Hyperthermia: No - Suicidal Assessment Feels Threatened In Home Enviroment: No Family/Social History - Physician Review Nursing Documentation Reviewed: Yes Family/Social History: Other (non contributory) Smoking Status: Former Smoker Hx Alcohol Use: No Hx Substance Use: No Hx Substance Use Treatment: No Allergies/Home Meds Allergies/Adverse Reactions: Allergies No Known Allergies Allergy (Verified 04/20/13 12:09) Home Medications: Home Meds Medication Instructions Recorded Confirmed ALPRAZolam [Xanax] 0.25 mg PO BID PRN 12/25/16 12/25/16 Albuterol Sulfate 2.5 mg IH Q6H PRN 12/25/16 12/25/16 Aspirin [Adult Low Dose Aspirin EC] 81 mg PO DAILY 12/25/16 12/25/16 Benzonatate 200 mg PO TID 12/25/16 12/25/16 Budesonide [Pulmicort Respules] 0.5 mg IH BID 12/25/16 12/25/16 Doxycycline Hyclate [Doryx] 100 mg PO DAILY 12/25/16 12/25/16 Escitalopram [Lexapro] 5 mg PO DAILY 12/25/16 12/25/16 Fluticasone/Salmeterol 500/50 1 puff IH BID 12/25/16 12/25/16 [Advair Diskus 500/50] Guaifenesin [Mucinex ER] 800 mg PO BID 12/25/16 12/25/16 Levalbuterol Tartrate [Xopenex Hfa] 2 puff IH Q6H PRN 12/25/16 12/25/16 Levocetirizine Dihydrochloride 5 mg PO DAILY 12/25/16 12/25/16 [Xyzal] Metaxalone 800 mg PO BID PRN 12/25/16 12/25/16 Multivit,Iron,Min 5/Folic Acid 1 tab PO DAILY 12/25/16 12/25/16 [Strovite Forte] Pantoprazole Sodium [Protonix] 40 mg PO DAILY 12/25/16 12/25/16 Prednisone [Shakira] 15 mg PO DAILY 12/25/16 12/25/16 Pregabalin [Lyrica] 100 mg PO TID 12/25/16 12/25/16 Quinine Sulfate [Qualaquin] 324 mg PO DAILY 12/25/16 12/25/16 Sucralfate [Carafate] 1 gm PO BID 12/25/16 12/25/16 Tiotropium [Spiriva] 18 mcg IH DAILY 12/25/16 12/25/16 Tramadol HCl/Acetaminophen 1 tab PO BID 12/25/16 12/25/16 [Acetaminophen-Tramadol HCl 325 mg-37.5 mg] diaZEpam [Valium] 5 mg PO DAILY 12/25/16 12/25/16 Review of Systems - Physician Review All systems were reviewed & negative as marked: Yes - Review of Systems Constitutional: Fevers Respiratory: SOB Physical Exam Vital Signs Reviewed: Yes Vital Signs Temp Pulse Resp BP Pulse Ox 12/25/16 20:03 21 87 L 12/25/16 19:50 99.7 F H 125 H 30 H 118/49 L 85 L Appearance: Positive for: Well-Appearing Pain Distress: None Mental Status: Positive for: Alert and Oriented X 3 - Systems Exam Head: Present: Atraumatic, Normocephalic Pupils: Present: PERRL Extroacular Muscles: Present: EOMI Conjunctiva: Present: Normal Mouth: Present: Moist Mucous Membranes Neck: Present: Normal Range of Motion Respiratory/Chest: Present: Respiratory Distress, Accessory Muscle Use, Wheezes , Other (diminished breath sounds) Cardiovascular: Present: Regular Rate and Rhythm, Normal S1, S2. No: Murmurs Abdomen: Present: Normal Bowel Sounds. No: Tenderness, Distention, Peritoneal Signs Back: Present: Normal Inspection Upper Extremity: Present: Normal Inspection. No: Cyanosis, Edema Lower Extremity: Present: Normal Inspection. No: Edema Neurological: Present: GCS=15, CN II-XII Intact, Speech Normal Skin: Present: Warm, Dry, Normal Color. No: Rashes Psychiatric: Present: Alert, Oriented x 3, Normal Insight, Normal Concentration Medical Decision Making ED Course and Treatment: 12/25/16 20:15 EKG: Ordered, reviewed, and independently interpreted the EKG. Rate : 125 BPM Rhythm : sinus tachycardia Interpretation : no STEMI the pt arrived in marked resp distress and was placed on bipap, given mult nebs and IV steroids. 21:45 pt appears comfortable on bipap. sx improving. 12/25/16 22:02 pt now appears comfortable off bipap. disc w Dr Harvey will admit. - Lab Interpretations Lab Results: 12/25/16 19:50 12/25/16 19:50 Lab Results 12/25/16 21:45: pO2 197 H, VBG pH 7.41, VBG pCO2 52.0, VBG HCO3 33.0 H, VBG Total CO2 34.6 H, VBG O2 Sat (Calc) 99.3 H, VBG Base Excess 6.9 H, VBG Potassium 3.9, Glucose 123 H, Lactate 0.7, FiO2 21.0, Sodium 133.0, Chloride 101.0, Venous Blood Potassium 3.9 12/25/16 20:15: Influenza Typ A,B (EIA) Negative for flu a/b 12/25/16 19:50: Sodium 132, Potassium 3.9, Chloride 93 L, Carbon Dioxide 30, Anion Gap 13, BUN 17, Creatinine 0.6 L, Est GFR ( Amer) > 60, Est GFR ( Non-Af Amer) > 60, Random Glucose 121 H, Calcium 9.8, Total Bilirubin 0.9, AST 27, ALT 28, Alkaline Phosphatase 70, Troponin I < 0.01, Total Protein 6.7, Albumin 3.8, Globulin 2.8, Albumin/Globulin Ratio 1.4 12/25/16 19:50: WBC 20.4 H D, RBC 4.26, Hgb 10.8 L, Hct 33.9 L, MCV 79.6 L, MCH 25.4, MCHC 31.9, RDW 18.1 H, Plt Count 305, MPV 8.7, Gran % 88.4 H, Lymph % ( Auto) 4.0 L, [place] % (Auto) 7.5 H, Eos % (Auto) 0.0 L, Baso % (Auto) 0.1, Gran # 18.04 H, Lymph # 0.8 L, [place] # 1.5 H, Eos # 0.0, Baso # 0.02, Neutrophils % ( Manual) 89 H, Band Neutrophils % 1, Lymphocytes % (Manual) 7 L, Monocytes % ( Manual) 3 I have reviewed the lab results: Yes - RAD Interpretation Radiology Orders: 12/25/16 20:01 CHEST PORTABLE [RAD] Stat - EKG Interpretation Interpreted by ED Physician: Yes Type: 12 lead EKG - Medication Orders Current Medication Orders: Discontinued Medications Albuterol Sulfate (Albuterol 0.083% Inhal Rylee (2.5 Mg/3 Ml) Ud) 5 mg INH STAT STA Stop: 12/25/16 21:13 Albuterol/Ipratropium (Duoneb 3 Mg/0.5 Mg (3 Ml) Ud) 3 ml IH Q15M COLTON Stop: 12/25/16 20:31 Last Admin: 12/25/16 20:37 Dose: 3 ml Sodium Chloride (Sodium Chloride 0.9%) 1,000 mls @ 999 mls/hr IV .Q1H1M STA Stop: 12/25/16 21:02 Last Admin: 12/25/16 20:37 Dose: 999 mls/hr eMAR Start Stop Document 12/25/16 20:37 SS (Rec: 12/25/16 20:38 SS [id number]) Intravenous Solution Start Date 12/25/16 Start Time 20:38 End Date 12/25/16 End time 21:39 Total Infusion Time 61 Levofloxacin/Dextrose (Levaquin 750mg) 750 mg IVPB STAT STA Stop: 12/25/16 21:12 Methylprednisolone (Solu-Medrol) 125 mg IVP STAT STA Stop: 12/25/16 19:58 Last Admin: 12/25/16 20:37 Dose: 125 mg IVP Administration Document 12/25/16 20:37 SS (Rec: 12/25/16 20:37 SS [id number]) Charges for Administration # of IVP Administrations 1 - Scribe Statement The provider has reviewed the documentation as recorded by the Sarah Mar Provider Scribe Attestation: All medical record entries made by the Scribdawson were at my direction and personally dictated by me. I have reviewed the chart and agree that the record accurately reflects my personal performance of the history, physical exam, medical decision making, and the department course for this patient. I have also personally directed, reviewed, and agree with the discharge instructions and disposition. Disposition/Present on Arrival - Present on Arrival Any Indicators Present on Arrival: No History of DVT/PE: No History of Uncontrolled Diabetes: No Urinary Catheter: No History of Decub. Ulcer: No History Surgical Site Infection Following: None - Disposition Have Diagnosis and Disposition been Completed?: Yes Diagnosis: COPD exacerbation Disposition: HOSPITALIZED Disposition Time: 22:02 Condition: STABLE Forms: [employer] (Niuean)
[2016-12-25 20:28] LABS: ALB/GLOB RATIO 1.4 (1.1-1.8); ALKALINE PHOSPHATASE 70 U/L (38-126); ALT/SGPT 28 U/L (7-56); AST/SGOT 27 U/L (17-59); BILIRUBIN,TOTAL 0.9 mg/dL (0.2-1.3); BLOOD UREA NITROGEN 17 mg/dL (7-21); CALCIUM 9.8 mg/dL (8.4-10.5); CARBON DIOXIDE 30 mmol/L (21-33); CHLORIDE 93 mmol/L (98-107); GFR AFRICAN-AMERICAN > 60; GLUCOSE,RANDOM 121 mg/dL (70-110); POTASSIUM 3.9 mmol/L (3.6-5.0); SODIUM 132 mmol/L (132-148); TOTAL PROTEIN 6.7 g/dL (5.8-8.3)
[2016-12-25 20:40] LABS: TROPONIN I < 0.01 ng/mL
[2016-12-25 20:58] LABS: BAND 1 % (0-2); NEUTROPHIL 89 % (50.0-70.0)
[2016-12-25] MEDS ORDERED: levoFLOXacin 750 mg in D5W 150 ML BAG IVPB STA (21:11)
[2016-12-25] MEDS ORDERED: Albuterol 0.083% Inhal Sol (2.5 mg/3 mL) UD INH STA (21:12)
[2016-12-25 21:55] LABS: VENOUS BLOOD GAS BASE EXCESS 6.9 mmol/L (0.0-2.0); VENOUS BLOOD PH 7.41 (7.32-7.43)
[2016-12-25] MEDS ORDERED: Albuterol 0.083% Inhal Sol (2.5 mg/3 mL) UD IH PRN (22:46)
[2016-12-25] MEDS ORDERED: LEVALBUTEROL TARTRATE IH PRN (22:46)
--- NOTE | 2016-12-25 23:01 | CP.PCM.HP ---
<ROSINA WEBSTER - Last Filed: 12/25/16 22:51> History of Present Illness - History of Present Illness History of Present Illness: CC: Dyspnea Pt is a 71 yo male with PMHx of COPD, invasive esophageal CA, and melanoma presents with c/o worsening shortness of breath. Pt states that over the past 3- 4 days he has had increased SOB over his usual baseline due to his history of emphysema. Pt states that he's had a constant, productive cough with minimal white sputum and subjective fever. Pt denied any alleviating or aggravating factors, as SOB continued even at rest. Pt states that he can only walk a short distance before becoming short of breath. At home patient requires oxygen, but does not use BIPAP. Pt also c/o back pain, in which he went to an urgent care center today. He was told that his muscle spasms were likely due to his constant coughing. The patient was given an Rx for muscle relaxers. Pt admits to 30 lb weight loss over the last month and is currently being followed by Dr. Ferreira for his esophageal CA, which is being treated with radiation. Pt denies CP, n/v/d, abdominal pain, chills, constipation, PEREIRA, fatigue, dizziness, or dysuria. PMHx: COPD, Invasive esophageal ca, melanoma PSHx: appendectomy FamHx: Noncontributory SHx: Former smoker quit 10 years ago, denied etoh and illicit drugs Meds: Mar reviewed Allergies: NKDA PMD: Mutterperl Pulm: Irena Onc: Hanna Present on Admission - Present on Admission Any Indicators Present on Admission: No Review of Systems - Review of Systems Review of Systems: 12 point ROS reviewed and negative other than what is stated in HPI. Past Patient History - Infectious Disease Hx of Infectious Diseases: None - Tetanus Immunizations Tetanus Immunization: Unknown - Past Social History Smoking Status: Former Smoker - CARDIAC Hx Cardiac Disorders: No - PULMONARY Hx Respiratory Disorders: Yes (has home o2) Hx Chronic Obstructive Pulmonary Disease (COPD): Yes Hx Emphysema: Yes Other/Comment: pt was on lung transplant list at [facility] but was recently dx with esophageal ca, so he can no longer be on the list - NEUROLOGICAL Hx Neurological Disorder: No - HEENT Hx HEENT Problems: Yes (reading glasses) Hx Cataracts: Yes (b/l cat sx) Other/Comment: voice hoarse - RENAL Hx Chronic Kidney Disease: No - ENDOCRINE/METABOLIC Hx Endocrine Disorders: No - HEMATOLOGICAL/ONCOLOGICAL Hx Cancer: Yes (recently dx with esophageal ca) - INTEGUMENTARY Hx Dermatological Problems: Yes 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) Hx Melanoma: Yes (removed from back) - MUSCULOSKELETAL/RHEUMATOLOGICAL Hx Falls: No - GASTROINTESTINAL Hx Gastrointestinal Disorders: No - GENITOURINARY/GYNECOLOGICAL Hx Genitourinary Disorders: No - PSYCHIATRIC Hx Anxiety: Yes Hx Substance Use: No - SURGICAL HISTORY Hx Appendectomy: Yes - ANESTHESIA Hx Anesthesia: Yes Hx Anesthesia Reactions: No Hx Malignant Hyperthermia: No Meds Allergies/Adverse Reactions: Allergies Allergy/AdvReac Type Severity Reaction Status Date / Time No Known Allergies Allergy Verified 04/20/13 12:09 Physical Exam - Head Exam Head Exam: ATRAUMATIC, NORMOCEPHALIC - Eye Exam Eye Exam: EOMI, Normal appearance - ENT Exam ENT Exam: Mucous Membranes Moist - Neck Exam Neck exam: Positive for: Full Rom. Negative for: Lymphadenopathy, Tenderness, Thyromegaly - Respiratory Exam Respiratory Exam: Accessory Muscle Use, Wheezes, Respiratory Distress. absent: Rales, Rhonchi - Cardiovascular Exam Cardiovascular Exam: RRR, +S1, +S2. absent: Diastolic murmur, Gallop, Rubs, Systolic Murmur - GI/Abdominal Exam GI & Abdominal Exam: Soft. absent: Distended, Guarding, Organomegaly, Rebound, Tenderness - Extremities Exam Extremities exam: Positive for: normal inspection - Neurological Exam Neurological exam: Alert, Oriented x3 - Psychiatric Exam Psychiatric exam: Normal Affect, Normal Mood - Skin Skin Exam: Dry, Intact, Normal Color, Warm Results - Vital Signs Recent Vital Signs: Last Vital Signs Temp 99.7 F H 12/25/16 19:50 Pulse 125 H 12/25/16 19:50 Resp 21 12/25/16 20:03 BP 118/49 L 12/25/16 19:50 Pulse Ox 87 L 12/25/16 20:03 - Labs Result Diagrams: 12/25/16 19:50 12/25/16 19:50 Labs: Laboratory Results - last 24 hr 12/25/16 12/25/16 12/25/16 19:50 19:50 20:15 WBC 20.4 H D RBC 4.26 Hgb 10.8 L Hct 33.9 L MCV 79.6 L MCH 25.4 MCHC 31.9 RDW 18.1 H Plt Count 305 MPV 8.7 Gran % 88.4 H Lymph % (Auto) 4.0 L [place] % (Auto) 7.5 H Eos % (Auto) 0.0 L Baso % (Auto) 0.1 Gran # 18.04 H Lymph # 0.8 L [place] # 1.5 H Eos # 0.0 Baso # 0.02 Neutrophils % (Manual) 89 H Band Neutrophils % 1 Lymphocytes % (Manual) 7 L Monocytes % (Manual) 3 pO2 VBG pH VBG pCO2 VBG HCO3 VBG Total CO2 VBG O2 Sat (Calc) VBG Base Excess VBG Potassium Glucose Lactate FiO2 Sodium 132 Potassium 3.9 Chloride 93 L Carbon Dioxide 30 Anion Gap 13 BUN 17 Creatinine 0.6 L Est GFR ( Amer) > 60 Est GFR (Non-Af Amer) > 60 Random Glucose 121 H Calcium 9.8 Total Bilirubin 0.9 AST 27 ALT 28 Alkaline Phosphatase 70 Troponin I < 0.01 Total Protein 6.7 Albumin 3.8 Globulin 2.8 Albumin/Globulin Ratio 1.4 Venous Blood Potassium Influenza Typ A,B (EIA) Negative for flu a/b 12/25/16 21:45 WBC RBC Hgb Hct MCV MCH MCHC RDW Plt Count MPV Gran % Lymph % (Auto) [place] % (Auto) Eos % (Auto) Baso % (Auto) Gran # Lymph # [place] # Eos # Baso # Neutrophils % (Manual) Band Neutrophils % Lymphocytes % (Manual) Monocytes % (Manual) pO2 197 H VBG pH 7.41 VBG pCO2 52.0 VBG HCO3 33.0 H VBG Total CO2 34.6 H VBG O2 Sat (Calc) 99.3 H VBG Base Excess 6.9 H VBG Potassium 3.9 Glucose 123 H Lactate 0.7 FiO2 21.0 Sodium 133.0 Potassium Chloride 101.0 Carbon Dioxide Anion Gap BUN Creatinine Est GFR ( Amer) Est GFR (Non-Af Amer) Random Glucose Calcium Total Bilirubin AST ALT Alkaline Phosphatase Troponin I Total Protein Albumin Globulin Albumin/Globulin Ratio Venous Blood Potassium 3.9 Influenza Typ A,B (EIA) Assessment & Plan - Assessment and Plan (Free Text) Assessment: 71 yo male with PMH of COPD, invasive esophageal CA, and melanoma presents with 3-4 days of worsening dyspnea and productive cough will be admitted for evaluation and treatment for COPD exacerbation. Plan: 1. COPD Exacerbation - CXR shows no active disease - Pulm consulted - F/u blood, urine, sputum cultures - Solu-Medrol 40 mg IV daily - Ceftriaxone 1 gm IVPB daily - Azithromycin 500 mg IVPB daily - Duoneb prn and scheduled - BIPAP as needed - Cont home meds: pulmicort, brovana, tessalon perles, mucinex 2. Leukocytosis - Elevated WBC elevated likely 2/2 steroids - Tylenol for fever - Monitor 3. Esophageal CA - Regular diet as courtney by patient - Follow up with Dr. Ferreira outpatient 4. H/o anxiety/depression - Cont home meds: Lexapro, xanax GI/DVT PPx - Protonix - SCDs Pt was seen and discussed in detail with Dr. Harvey. Guy Webster, PGY1 <Nicole Harvey - Last Filed: 12/28/16 01:02> Results - Vital Signs Recent Vital Signs: Last Vital Signs Temp 97.4 F L 12/27/16 16:00 Pulse 103 H 12/27/16 18:00 Resp 22 12/27/16 16:00 BP 130/78 12/27/16 16:00 Pulse Ox 96 12/27/16 16:00 - Labs Result Diagrams: 12/27/16 06:00 12/27/16 06:00 Labs: Laboratory Results - last 24 hr 12/27/16 12/27/16 06:00 06:00 WBC 23.8 H RBC 3.63 Hgb 9.0 L Hct 29.0 L MCV 79.9 L MCH 24.8 L MCHC 31.0 RDW 18.4 H Plt Count 315 MPV 9.2 Sodium 133 Potassium 4.5 Chloride 95 L Carbon Dioxide 31 Anion Gap 12 BUN 21 Creatinine 0.4 L Est GFR ( Amer) > 60 Est GFR (Non-Af Amer) > 60 Random Glucose 132 H Calcium 9.6 Total Bilirubin 0.3 AST 22 ALT 22 Alkaline Phosphatase 63 Total Protein 5.7 L Albumin 3.1 Globulin 2.6 Albumin/Globulin Ratio 1.2
[2016-12-25] MEDS ORDERED: Albuterol-Ipratrop 3 mg / 0.5 (3 ml) UD IH PRN (23:13)
[2016-12-26] MEDS: Albuterol-Ipratrop 3 mg / 0.5 (3 ml) UD IH SCH ×6 (00:50→22:41)
[2016-12-26 03:20] LABS: URINE BILIRUBIN NEGATIVE (NEGATIVE); URINE BLOOD NEGATIVE (NEGATIVE); URINE GLUCOSE (UA) NEGATIVE (NEGATIVE); URINE KETONE 15 mg/dL (NEGATIVE); URINE LEUKOCYTE ESTERASE NEGATIVE Leu/uL (NEGATIVE); URINE PROTEIN 30 mg/dL (<30 mg/dL); URINE UROBILINOGEN 0.2 E.U./dL (<1 E.U./dL)
[2016-12-26 03:33] LABS: URINE COLOR YELLOW (YELLOW)
[2016-12-26 03:34] LABS: URINE APPEARANCE CLEAR (CLEAR)
[2016-12-26 03:42] LABS: URINE EPITHELIAL CELLS 0 - 2 /hpf (0-5); URINE RBC 0 - 2 /hpf (0-2); URINE WBC 0 - 2 /hpf (0-6)
[2016-12-26 07:22] LABS: HEMATOCRIT 30.8 % (42.0-52.0); MEAN CORPUSCULAR HEMOGLOBIN 24.9 pg (25.0-35.0); MEAN CORPUSCULAR HGB CONC 31.2 g/dl (31.0-37.0); MEAN PLATELET VOLUME 9.1 fl (7.0-11.0); RED CELL DISTRIBUTION WIDTH 18.4 % (11.5-14.5); WHITE BLOOD COUNT 22.7 10^3/ul (4.5-11.0)
[2016-12-26 07:58] LABS: ALB/GLOB RATIO 1.2 (1.1-1.8); ALKALINE PHOSPHATASE 57 U/L (38-126); ALT/SGPT 27 U/L (7-56); AST/SGOT 26 U/L (17-59); BILIRUBIN,TOTAL 0.5 mg/dL (0.2-1.3); BLOOD UREA NITROGEN 15 mg/dL (7-21); CALCIUM 9.2 mg/dL (8.4-10.5); CARBON DIOXIDE 31 mmol/L (21-33); CHLORIDE 95 mmol/L (98-107); GFR AFRICAN-AMERICAN > 60; GLUCOSE,RANDOM 215 mg/dL (70-110); MAGNESIUM 1.9 mg/dL (1.7-2.2); PHOSPHOROUS 2.6 mg/dL (2.5-4.5); POTASSIUM 4.1 mmol/L (3.6-5.0); SODIUM 131 mmol/L (132-148); TOTAL PROTEIN 5.9 g/dL (5.8-8.3)
[2016-12-26] MEDS ORDERED: Budesonide 0.5 mg/2 ml Inhal Susp UD IH SCH ×2 (08:00→10:00)
[2016-12-26] MEDS ORDERED: Arformoterol 15 mcg/2 ml Inh Sol IH SCH (08:00)
[2016-12-26] MEDS ORDERED: MethylPREDNISolone 40 mg Vial IVP SCH (10:00)
[2016-12-26] MEDS ORDERED: Tiotropium 18 mcg Cap For Inhalation IH SCH (10:00)
--- NOTE | 2016-12-26 10:21 | CARD ---
APPROVED REPORT EKG Measurement Heart [id number] <Conclusion> Sinus tachycardia Otherwise normal ECG
--- NOTE | 2016-12-26 10:22 | RAD ---
HISTORY: sob COMPARISON: 08/31/2016 FINDINGS: LUNGS: Previously referenced right lung base patchy infiltrate and/or nodule not appreciated on this exam This current study is rotated towards the right -as the prior was also. Increased lung volumes - possible 7 this/COPD changes. PLEURA: No significant pleural effusion identified, no pneumothorax apparent. CARDIOVASCULAR: Normal heart size allowing for rotation. OSSEOUS STRUCTURES: No significant abnormalities. VISUALIZED UPPER ABDOMEN: Normal. OTHER FINDINGS: None. IMPRESSION: No acute cardiopulmonary pathology appreciated. Prior right basal patchy infiltrate and/or nodule not currently appreciated Bilateral hyperaeration central right mid lung zone radiolucency -emphysematous changes possible. Similar finding
[2016-12-26] MEDS: MethylPREDNISolone 40 mg Vial IVP SCH ×2 (10:37→21:29)
[2016-12-26] MEDS: Azithromycin 500MG/NS 250ml 500 MG/250 ML BAG IVPB SCH (10:38)
[2016-12-26] MEDS: guaiFENesin 600 mg ER Tab PO SCH ×2 (10:38→18:27)
[2016-12-26] MEDS: Pantoprazole 40 mg EC Tab PO SCH (10:38)
[2016-12-26] MEDS: cefTRIAXone 1 gm 1 GM/100 ML BAG IVPB SCH (10:39)
--- NOTE | 2016-12-26 13:43 | CP.PCM.PN ---
<Gerardo Katz - Last Filed: 12/26/16 13:35> Subjective - Date & Time of Evaluation Date of Evaluation: 12/26/16 Time of Evaluation: 13:35 - Subjective Subjective: Pt seen and examined at bedside. Pt states he is still having mild trouble breathing. Pt does complain of occasional back pain with movement. Pt unable to speak in full sentences. Denies CP, N/V/D, fever, chills. Objective - Vital Signs/Intake and Output Vital Signs (last 24 hours): Temp Pulse Resp BP Pulse Ox 98.4 F 98 H 18 135/73 95 12/26/16 08:00 12/26/16 12:09 12/26/16 12:09 12/26/16 12:09 12/26/16 12:09 Intake and Output: 12/26/16 12/26/16 06:59 18:59 Intake Total 850 Output Total 350 Balance 500 - Medications Medications: Current Medications Acetaminophen (Tylenol 325mg Tab) 650 mg PO Q6H PRN PRN Reason: Fever >100.4 F Albuterol/Ipratropium (Duoneb 3 Mg/0.5 Mg (3 Ml) Ud) 3 ml IH Q2H PRN PRN Reason: Shortness of Breath Albuterol/Ipratropium (Duoneb 3 Mg/0.5 Mg (3 Ml) Ud) 3 ml IH [id number] [facility] Last Admin: 12/26/16 11:03 Dose: 3 ml Alprazolam (Xanax) 0.25 mg PO BID PRN; Protocol PRN Reason: Anxiety Stop: 01/01/17 22:47 Arformoterol Tartrate (Brovana) 15 mcg IH [id number] [facility] Aspirin (Ecotrin) 81 mg PO DAILY [facility] Last Admin: 12/26/16 10:37 Dose: 81 mg Benzonatate (Tessalon Perles) 200 mg PO TID [facility] Last Admin: 12/26/16 10:38 Dose: 200 mg Escitalopram Oxalate (Lexapro) 5 mg PO DAILY [facility] Last Admin: 12/26/16 10:38 Dose: 5 mg Guaifenesin (Mucinex La) 600 mg PO BID [facility] Last Admin: 12/26/16 10:38 Dose: 600 mg Ceftriaxone Sodium (Rocephin 1 Gram Ivpb) 1 gm in 100 mls @ 100 mls/hr IVPB DAILY [facility] PRN Reason: Protocol Last Admin: 12/26/16 10:39 Dose: 100 mls/hr Azithromycin (Zithromax 500mg In Ns) 500 mg in 250 mls @ 167 mls/hr IVPB DAILY [facility] PRN Reason: Protocol Last Admin: 12/26/16 10:38 Dose: 167 mls/hr Methylprednisolone (Solu-Medrol) 40 mg IVP Q12 [facility] Last Admin: 12/26/16 10:37 Dose: 40 mg Pantoprazole Sodium (Protonix Ec Tab) 40 mg PO 0600 [facility] Last Admin: 12/26/16 10:38 Dose: 40 mg Pregabalin (Lyrica) 100 mg PO TID [facility] Last Admin: 12/26/16 10:39 Dose: 100 mg - Labs Labs: 12/26/16 07:11 12/26/16 07:11 - Constitutional Appears: Non-toxic, No Acute Distress - Head Exam Head Exam: ATRAUMATIC, NORMAL INSPECTION, NORMOCEPHALIC - Respiratory Exam Respiratory Exam: Decreased Breath Sounds. absent: Rales, Rhonchi, Wheezes - Cardiovascular Exam Cardiovascular Exam: Tachycardia, REGULAR RHYTHM, +S1, +S2 - GI/Abdominal Exam GI & Abdominal Exam: Soft, Normal Bowel Sounds. absent: Tenderness - Extremities Exam Extremities Exam: Normal Inspection. absent: Calf Tenderness, Pedal Edema - Neurological Exam Neurological Exam: Alert, Awake, Oriented x3 - Psychiatric Exam Psychiatric exam: Normal Affect, Normal Mood - Skin Skin Exam: Intact, Normal Color, Warm Assessment and Plan - Assessment and Plan (Free Text) Plan: 71 yo male with PMH of COPD, invasive esophageal CA, and melanoma presents with COPD exacerbation. Will continue with steroid use and abx. Pt will have breathing treatments as needed. Steroids will be tapered as patient's respiratory status improves. 1. COPD Exacerbation Solumedrol 40 mg BID Pulm consulted, Dr. Irena Egan for cough Follow cultures Continue Rocephin and Azithromycin Duonebs changed to q6h scheduled due to tachycardia BIPAP as needed 2. Leukocytosis Increasing likely secondary to steroid use Procal negative Follow cultures 3. Esophageal CA Outpatient follow up with Dr. Ferreira 4. Anxiety/Depression Continue home medications 5. PPX Protonix SCDs Gianna, PGY-2 <Frankie Pina - Last Filed: 12/26/16 15:13> Objective - Vital Signs/Intake and Output Vital Signs (last 24 hours): Temp Pulse Resp BP Pulse Ox 99.7 F H 102 H 18 109/56 L 92 L 12/26/16 13:48 12/26/16 14:49 12/26/16 14:49 12/26/16 14:49 12/26/16 14:49 Intake and Output: 12/26/16 12/26/16 06:59 18:59 Intake Total 850 Output Total 350 Balance 500 - Medications Medications: Current Medications Acetaminophen (Tylenol 325mg Tab) 650 mg PO Q6H PRN PRN Reason: Fever >100.4 F Albuterol/Ipratropium (Duoneb 3 Mg/0.5 Mg (3 Ml) Ud) 3 ml IH Q2H PRN PRN Reason: Shortness of Breath Albuterol/Ipratropium (Duoneb 3 Mg/0.5 Mg (3 Ml) Ud) 3 ml IH [id number] [facility] Last Admin: 12/26/16 13:38 Dose: 3 ml Alprazolam (Xanax) 0.25 mg PO BID PRN; Protocol PRN Reason: Anxiety Stop: 01/01/17 22:47 Arformoterol Tartrate (Brovana) 15 mcg IH [id number] [facility] Aspirin (Ecotrin) 81 mg PO DAILY [facility] Last Admin: 12/26/16 10:37 Dose: 81 mg Benzonatate (Tessalon Perles) 200 mg PO TID [facility] Last Admin: 12/26/16 13:49 Dose: 200 mg Escitalopram Oxalate (Lexapro) 5 mg PO DAILY [facility] Last Admin: 12/26/16 10:38 Dose: 5 mg Guaifenesin (Mucinex La) 600 mg PO BID [facility] Last Admin: 12/26/16 10:38 Dose: 600 mg Ceftriaxone Sodium (Rocephin 1 Gram Ivpb) 1 gm in 100 mls @ 100 mls/hr IVPB DAILY [facility] PRN Reason: Protocol Last Admin: 12/26/16 10:39 Dose: 100 mls/hr Azithromycin (Zithromax 500mg In Ns) 500 mg in 250 mls @ 167 mls/hr IVPB DAILY [facility] PRN Reason: Protocol Last Admin: 12/26/16 10:38 Dose: 167 mls/hr Methylprednisolone (Solu-Medrol) 40 mg IVP Q12 [facility] Last Admin: 12/26/16 10:37 Dose: 40 mg Pantoprazole Sodium (Protonix Ec Tab) 40 mg PO 0600 [facility] Last Admin: 12/26/16 10:38 Dose: 40 mg Pregabalin (Lyrica) 100 mg PO TID [facility] Last Admin: 12/26/16 13:49 Dose: 100 mg - Labs Labs: 12/26/16 07:11 12/26/16 07:11 Attending/Attestation - Attestation I have personally seen and examined this patient.: Yes I have fully participated in the care of the patient.: Yes I have reviewed all pertinent clinical information, including history, physical exam and plan: Yes Notes (Text): 12/26/16 15:11 71 year old male with past medical history of COPD and esophageal cancer who presented with COPD exacerbation. Continue with iv steroids, antibiotics and duonebs. Pulmonary evaluation was requested. Leukocytosis noted; possibly secondary to recent steroids use. Will monitor. Frankie Pina MD Hospitalist.
[2016-12-26] MEDS ORDERED: Pneumococcal 23-Valent Vaccine IM ONE (14:19)
[2016-12-27] MEDS: Albuterol-Ipratrop 3 mg / 0.5 (3 ml) UD IH SCH ×4 (02:45→22:15)
[2016-12-27] MEDS: Pantoprazole 40 mg EC Tab PO SCH (06:34)
[2016-12-27 06:38] LABS: MEAN CELL VOLUME 79.9 fl (80.0-105.0); MEAN CORPUSCULAR HEMOGLOBIN 24.8 pg (25.0-35.0); MEAN PLATELET VOLUME 9.2 fl (7.0-11.0); RED CELL DISTRIBUTION WIDTH 18.4 % (11.5-14.5); WHITE BLOOD COUNT 23.8 10^3/ul (4.5-11.0)
[2016-12-27 07:14] LABS: ALB/GLOB RATIO 1.2 (1.1-1.8); ALKALINE PHOSPHATASE 63 U/L (38-126); ALT/SGPT 22 U/L (7-56); AST/SGOT 22 U/L (17-59); BILIRUBIN,TOTAL 0.3 mg/dL (0.2-1.3); BLOOD UREA NITROGEN 21 mg/dL (7-21); CALCIUM 9.6 mg/dL (8.4-10.5); CARBON DIOXIDE 31 mmol/L (21-33); CHLORIDE 95 mmol/L (98-107); GFR AFRICAN-AMERICAN > 60; GLUCOSE,RANDOM 132 mg/dL (70-110); POTASSIUM 4.5 mmol/L (3.6-5.0); SODIUM 133 mmol/L (132-148); TOTAL PROTEIN 5.7 g/dL (5.8-8.3)
[2016-12-27] MEDS: cefTRIAXone 1 gm 1 GM/100 ML BAG IVPB SCH (10:50)
[2016-12-27] MEDS: MethylPREDNISolone 40 mg Vial IVP SCH ×2 (10:50→22:31)
[2016-12-27] MEDS: guaiFENesin 600 mg ER Tab PO SCH ×2 (10:52→17:41)
[2016-12-27] MEDS: Azithromycin 500MG/NS 250ml 500 MG/250 ML BAG IVPB SCH (12:03)
--- NOTE | 2016-12-27 13:43 | CP.PCM.PN ---
<Gerardo Katz - Last Filed: 12/27/16 13:41> Subjective - Date & Time of Evaluation Date of Evaluation: 12/27/16 Time of Evaluation: 13:41 - Subjective Subjective: Pt seen and examined at bedside. Pt states he is still having pain in his back and it does not allow him to take deep breaths. Otherwise, no other complaints. Denies CP, SOB, N/V/D, fever, chills. Objective - Vital Signs/Intake and Output Vital Signs (last 24 hours): Temp Pulse Resp BP Pulse Ox 97.9 F 92 H 22 125/71 95 12/27/16 08:00 12/27/16 10:00 12/27/16 08:00 12/27/16 08:00 12/27/16 08:00 Intake and Output: 12/27/16 12/27/16 06:59 18:59 Intake Total 480 120 Output Total 300 Balance 480 -180 - Medications Medications: Current Medications Acetaminophen (Tylenol 325mg Tab) 650 mg PO Q6H PRN PRN Reason: Fever >100.4 F Albuterol/Ipratropium (Duoneb 3 Mg/0.5 Mg (3 Ml) Ud) 3 ml IH Q2H PRN PRN Reason: Shortness of Breath Albuterol/Ipratropium (Duoneb 3 Mg/0.5 Mg (3 Ml) Ud) 3 ml IH [id number] [facility] Last Admin: 12/27/16 07:22 Dose: 3 ml Alprazolam (Xanax) 0.25 mg PO BID PRN; Protocol PRN Reason: Anxiety Stop: 01/01/17 22:47 Arformoterol Tartrate (Brovana) 15 mcg IH [id number] [facility] Aspirin (Ecotrin) 81 mg PO DAILY [facility] Last Admin: 12/27/16 10:52 Dose: 81 mg Benzonatate (Tessalon Perles) 200 mg PO TID [facility] Last Admin: 12/27/16 10:52 Dose: 200 mg Cyclobenzaprine HCl (Flexeril) 5 mg PO TID [facility] Last Admin: 12/27/16 10:52 Dose: 5 mg Escitalopram Oxalate (Lexapro) 5 mg PO DAILY [facility] Last Admin: 12/27/16 10:52 Dose: 5 mg Guaifenesin (Mucinex La) 600 mg PO BID [facility] Last Admin: 12/27/16 10:52 Dose: 600 mg Ceftriaxone Sodium (Rocephin 1 Gram Ivpb) 1 gm in 100 mls @ 100 mls/hr IVPB DAILY [facility] PRN Reason: Protocol Last Admin: 12/27/16 10:50 Dose: 100 mls/hr Azithromycin (Zithromax 500mg In Ns) 500 mg in 250 mls @ 167 mls/hr IVPB DAILY [facility] PRN Reason: Protocol Last Admin: 12/27/16 12:03 Dose: 167 mls/hr Methylprednisolone (Solu-Medrol) 40 mg IVP Q12 [facility] Last Admin: 12/27/16 10:50 Dose: 40 mg Pantoprazole Sodium (Protonix Ec Tab) 40 mg PO 0600 [facility] Last Admin: 12/27/16 06:34 Dose: 40 mg Pregabalin (Lyrica) 100 mg PO TID [facility] Last Admin: 12/27/16 10:52 Dose: 100 mg Sodium Chloride (Marathon Nasal [place]) 0 ml NS Q6H PRN PRN Reason: Nasal congestion Last Admin: 12/27/16 13:17 Dose: 2 spr - Labs Labs: 12/27/16 06:00 12/27/16 06:00 - Constitutional Appears: Non-toxic, No Acute Distress - Head Exam Head Exam: ATRAUMATIC, NORMAL INSPECTION, NORMOCEPHALIC - ENT Exam ENT Exam: Mucous Membranes Moist - Respiratory Exam Respiratory Exam: Decreased Breath Sounds, Wheezes. absent: Rales, Rhonchi - Cardiovascular Exam Cardiovascular Exam: RRR, +S1, +S2 - GI/Abdominal Exam GI & Abdominal Exam: Soft, Normal Bowel Sounds. absent: Tenderness - Extremities Exam Extremities Exam: Normal Inspection. absent: Calf Tenderness, Pedal Edema - Neurological Exam Neurological Exam: Alert, Awake, Oriented x3 - Psychiatric Exam Psychiatric exam: Normal Affect, Normal Mood - Skin Skin Exam: Intact, Normal Color, Warm Assessment and Plan - Assessment and Plan (Free Text) Plan: 71 yo male with PMH of COPD, invasive esophageal CA, and melanoma presents with COPD exacerbation. Will continue with steroid use and abx. No tapering of steroids, as patients breathing status remains the same. Pt will also have Flexeril added for back pain relief today. 1. COPD Exacerbation Solumedrol 40 mg BID Pulm consulted, Dr. Irena Egan for cough Cultures negative at this time Continue Rocephin and Azithromycin BIPAP as needed 2. Leukocytosis Stable, secondary to steroid use Procal negative Cultures negative 3. Esophageal CA Outpatient follow up with Dr. Ferreira 4. Anxiety/Depression Continue home medications 5. PPX Protonix SCDs Gianna, PGY-2 <Frankie Pina - Last Filed: 12/27/16 14:46> Objective - Vital Signs/Intake and Output Vital Signs (last 24 hours): Temp Pulse Resp BP Pulse Ox 97.9 F 92 H 22 125/71 95 12/27/16 08:00 12/27/16 10:00 12/27/16 08:00 12/27/16 08:00 12/27/16 08:00 Intake and Output: 12/27/16 12/27/16 06:59 18:59 Intake Total 480 720 Output Total 300 Balance 480 420 - Medications Medications: Current Medications Acetaminophen (Tylenol 325mg Tab) 650 mg PO Q6H PRN PRN Reason: Fever >100.4 F Albuterol/Ipratropium (Duoneb 3 Mg/0.5 Mg (3 Ml) Ud) 3 ml IH Q2H PRN PRN Reason: Shortness of Breath Albuterol/Ipratropium (Duoneb 3 Mg/0.5 Mg (3 Ml) Ud) 3 ml IH [id number] [facility] Last Admin: 12/27/16 13:58 Dose: 3 ml Alprazolam (Xanax) 0.25 mg PO BID PRN; Protocol PRN Reason: Anxiety Stop: 01/01/17 22:47 Arformoterol Tartrate (Brovana) 15 mcg IH [id number] [facility] Aspirin (Ecotrin) 81 mg PO DAILY [facility] Last Admin: 12/27/16 10:52 Dose: 81 mg Benzonatate (Tessalon Perles) 200 mg PO TID [facility] Last Admin: 12/27/16 14:36 Dose: 200 mg Cyclobenzaprine HCl (Flexeril) 5 mg PO TID [facility] Last Admin: 12/27/16 14:36 Dose: 5 mg Escitalopram Oxalate (Lexapro) 5 mg PO DAILY [facility] Last Admin: 12/27/16 10:52 Dose: 5 mg Guaifenesin (Mucinex La) 600 mg PO BID [facility] Last Admin: 12/27/16 10:52 Dose: 600 mg Ceftriaxone Sodium (Rocephin 1 Gram Ivpb) 1 gm in 100 mls @ 100 mls/hr IVPB DAILY [facility] PRN Reason: Protocol Last Admin: 12/27/16 10:50 Dose: 100 mls/hr Azithromycin (Zithromax 500mg In Ns) 500 mg in 250 mls @ 167 mls/hr IVPB DAILY [facility] PRN Reason: Protocol Last Admin: 12/27/16 12:03 Dose: 167 mls/hr Methylprednisolone (Solu-Medrol) 40 mg IVP Q12 [facility] Last Admin: 12/27/16 10:50 Dose: 40 mg Pantoprazole Sodium (Protonix Ec Tab) 40 mg PO 0600 [facility] Last Admin: 12/27/16 06:34 Dose: 40 mg Pregabalin (Lyrica) 100 mg PO TID [facility] Last Admin: 12/27/16 14:36 Dose: 100 mg Sodium Chloride (Marathon Nasal [place]) 0 ml NS Q6H PRN PRN Reason: Nasal congestion Last Admin: 12/27/16 13:17 Dose: 2 spr - Labs Labs: 12/27/16 06:00 12/27/16 06:00 Attending/Attestation - Attestation I have personally seen and examined this patient.: Yes I have fully participated in the care of the patient.: Yes I have reviewed all pertinent clinical information, including history, physical exam and plan: Yes Notes (Text): 12/27/16 14:44 71 year old male with past medical history of COPD and esophageal cancer who presented with COPD exacerbation. Continue with iv steroids, antibiotics and duonebs. Pulmonary evaluation is pending. He complains of back pain after possibly pulling a muscle few days prior. Flexeril is added. Leukocytosis noted likely secondary to recent steroids use. Will continue to monitor. Frankie Pina MD Hospitalist.
[2016-12-28] MEDS: Albuterol-Ipratrop 3 mg / 0.5 (3 ml) UD IH SCH ×4 (02:03→19:25)
[2016-12-28 06:24] LABS: HEMATOCRIT 29.2 % (42.0-52.0); MEAN CELL VOLUME 80.7 fl (80.0-105.0); MEAN CORPUSCULAR HEMOGLOBIN 24.6 pg (25.0-35.0); MEAN CORPUSCULAR HGB CONC 30.5 g/dl (31.0-37.0); RED CELL DISTRIBUTION WIDTH 18.6 % (11.5-14.5); WHITE BLOOD COUNT 21.3 10^3/ul (4.5-11.0)
[2016-12-28 06:36] LABS: ALB/GLOB RATIO 1.2 (1.1-1.8); ALKALINE PHOSPHATASE 73 U/L (38-126); ALT/SGPT 43 U/L (7-56); AST/SGOT 29 U/L (17-59); BILIRUBIN,TOTAL 0.3 mg/dL (0.2-1.3); BLOOD UREA NITROGEN 21 mg/dL (7-21); CALCIUM 9.8 mg/dL (8.4-10.5); CARBON DIOXIDE 36 mmol/L (21-33); CHLORIDE 96 mmol/L (95-110); GFR AFRICAN-AMERICAN > 60; GLUCOSE,RANDOM 127 mg/dL (70-110); POTASSIUM 4.9 mmol/L (3.6-5.0); SODIUM 135 mmol/L (132-148); TOTAL PROTEIN 5.7 g/dL (5.8-8.3)
[2016-12-28] MEDS: MethylPREDNISolone 40 mg Vial IVP SCH ×2 (10:40→22:02)
[2016-12-28] MEDS: cefTRIAXone 1 gm 1 GM/100 ML BAG IVPB SCH (10:40)
[2016-12-28] MEDS: Azithromycin 500MG/NS 250ml 500 MG/250 ML BAG IVPB SCH (10:41)
[2016-12-28] MEDS: guaiFENesin 600 mg ER Tab PO SCH ×2 (10:42→17:25)
--- NOTE | 2016-12-28 12:26 | CP.PCM.PN ---
<Gerardo Katz - Last Filed: 12/28/16 12:21> Subjective - Date & Time of Evaluation Date of Evaluation: 12/28/16 Time of Evaluation: 12:21 - Subjective Subjective: Pt seen and examined at bedside. Pt doing well overnight with no acute events. Pt states there is improvement of back pain. Denies CP, N/V/D, fever, chills. Objective - Vital Signs/Intake and Output Vital Signs (last 24 hours): Temp Pulse Resp BP Pulse Ox 97.9 F 92 H 22 131/83 97 12/28/16 08:05 12/28/16 08:05 12/28/16 08:05 12/28/16 08:05 12/28/16 08:05 Intake and Output: 12/28/16 12/28/16 06:59 18:59 Intake Total 660 Output Total 423 Balance 237 - Medications Medications: Current Medications Acetaminophen (Tylenol 325mg Tab) 650 mg PO Q6H PRN PRN Reason: Fever >100.4 F Acetaminophen (Tylenol 325mg Tab) 650 mg PO Q4H PRN PRN Reason: Pain, Mild (1-3) Albuterol/Ipratropium (Duoneb 3 Mg/0.5 Mg (3 Ml) Ud) 3 ml IH Q2H PRN PRN Reason: Shortness of Breath Albuterol/Ipratropium (Duoneb 3 Mg/0.5 Mg (3 Ml) Ud) [id number] [facility] Last Admin: 12/28/16 07:35 Dose: 3 ml Alprazolam (Xanax) 0.25 mg PO BID PRN; Protocol PRN Reason: Anxiety Stop: 01/01/17 22:47 Last Admin: 12/27/16 22:36 Dose: 0.25 mg Arformoterol Tartrate (Brovana) [id number] [facility] Aspirin (Ecotrin) [address] [facility] Last Admin: 12/28/16 10:42 Dose: 81 mg Benzonatate (Tessalon Perles) [address] [facility] Last Admin: 12/28/16 10:42 Dose: 200 mg Cyclobenzaprine HCl (Flexeril) [address] [facility] Last Admin: 12/28/16 10:42 Dose: 5 mg Escitalopram Oxalate (Lexapro) [address] [facility] Last Admin: 12/28/16 10:43 Dose: 5 mg Guaifenesin (Mucinex La) [address] [facility] Last Admin: 12/28/16 10:42 Dose: 600 mg Ceftriaxone Sodium (Rocephin 1 Gram Ivpb) 1 gm in 100 mls @ 100 mls/hr IVPB DAILY [facility] PRN Reason: Protocol Last Admin: 12/28/16 10:40 Dose: 100 mls/hr Azithromycin (Zithromax 500mg In Ns) 500 mg in 250 mls @ 167 mls/hr IVPB DAILY [facility] PRN Reason: Protocol Last Admin: 12/28/16 10:41 Dose: 167 mls/hr Methylprednisolone (Solu-Medrol) [address] [facility] Pantoprazole Sodium (Protonix Ec Tab) [address] [facility] Last Admin: 12/27/16 06:34 Dose: 40 mg Pregabalin (Lyrica) [address] [facility] Last Admin: 12/28/16 10:43 Dose: 100 mg Sodium Chloride ([place] Nasal [place]) 0 ml NS Q6H PRN PRN Reason: Nasal congestion Last Admin: 12/27/16 13:17 Dose: 2 spr - Labs Labs: 12/28/16 05:40 12/28/16 05:40 - Constitutional Appears: Non-toxic, No Acute Distress - Head Exam Head Exam: ATRAUMATIC, NORMAL INSPECTION, NORMOCEPHALIC - Respiratory Exam Respiratory Exam: Decreased Breath Sounds, Wheezes (Improving). absent: Rales, Rhonchi - Cardiovascular Exam Cardiovascular Exam: RRR, +S1, +S2 - GI/Abdominal Exam GI & Abdominal Exam: Soft, Normal Bowel Sounds. absent: Tenderness - Extremities Exam Extremities Exam: Normal Inspection. absent: Calf Tenderness, Pedal Edema - Neurological Exam Neurological Exam: Alert, Awake, Oriented x3 - Psychiatric Exam Psychiatric exam: Normal Affect, Normal Mood - Skin Skin Exam: Intact, Normal Color, Warm Assessment and Plan - Assessment and Plan (Free Text) Plan: 71 yo male with PMH of COPD, invasive esophageal CA, and melanoma presents with COPD exacerbation. Will taper steroids today and continue abx use. Flexeril has improved patients back pain. 1. COPD Exacerbation Solumedrol 30 mg BID Pulm consulted, Dr. Irena Egan for cough Cultures negative at this time Continue Rocephin and Azithromycin BIPAP as needed 2. Leukocytosis Stable, secondary to steroid use Procal negative Cultures negative 3. Esophageal CA Outpatient follow up with Dr. Ferreira 4. Anxiety/Depression Continue home medications 5. PPX Protonix SCDs Radhaloretta, PGY-2 <Frankie Pina - Last Filed: 12/28/16 12:43> Objective - Vital Signs/Intake and Output Vital Signs (last 24 hours): Temp Pulse Resp BP Pulse Ox 97.9 F 92 H 22 131/83 97 12/28/16 08:05 12/28/16 08:05 12/28/16 08:05 12/28/16 08:05 12/28/16 08:05 Intake and Output: 12/28/16 12/28/16 06:59 18:59 Intake Total 660 Output Total 423 Balance 237 - Medications Medications: Current Medications Acetaminophen (Tylenol 325mg Tab) 650 mg PO Q6H PRN PRN Reason: Fever >100.4 F Acetaminophen (Tylenol 325mg Tab) 650 mg PO Q4H PRN PRN Reason: Pain, Mild (1-3) Albuterol/Ipratropium (Duoneb 3 Mg/0.5 Mg (3 Ml) Ud) 3 ml IH Q2H PRN PRN Reason: Shortness of Breath Albuterol/Ipratropium (Duoneb 3 Mg/0.5 Mg (3 Ml) Ud) [id number] [facility] Last Admin: 12/28/16 07:35 Dose: 3 ml Alprazolam (Xanax) 0.25 mg PO BID PRN; Protocol PRN Reason: Anxiety Stop: 01/01/17 22:47 Last Admin: 12/27/16 22:36 Dose: 0.25 mg Arformoterol Tartrate (Brovana) [id number] [facility] Aspirin (Ecotrin) [address] [facility] Last Admin: 12/28/16 10:42 Dose: 81 mg Benzonatate (Tessalon Perles) [address] [facility] Last Admin: 12/28/16 10:42 Dose: 200 mg Cyclobenzaprine HCl (Flexeril) [address] [facility] Last Admin: 12/28/16 10:42 Dose: 5 mg Escitalopram Oxalate (Lexapro) [address] [facility] Last Admin: 12/28/16 10:43 Dose: 5 mg Guaifenesin (Mucinex La) [address] [facility] Last Admin: 12/28/16 10:42 Dose: 600 mg Ceftriaxone Sodium (Rocephin 1 Gram Ivpb) 1 gm in 100 mls @ 100 mls/hr IVPB DAILY [facility] PRN Reason: Protocol Last Admin: 12/28/16 10:40 Dose: 100 mls/hr Azithromycin (Zithromax 500mg In Ns) 500 mg in 250 mls @ 167 mls/hr IVPB DAILY [facility] PRN Reason: Protocol Last Admin: 12/28/16 10:41 Dose: 167 mls/hr Methylprednisolone (Solu-Medrol) [address] [facility] Pantoprazole Sodium (Protonix Ec Tab) [address] [facility] Last Admin: 12/27/16 06:34 Dose: 40 mg Pregabalin (Lyrica) [address] [facility] Last Admin: 12/28/16 10:43 Dose: 100 mg Sodium Chloride (Marion Nasal [place]) 0 ml NS Q6H PRN PRN Reason: Nasal congestion Last Admin: 12/27/16 13:17 Dose: 2 spr - Labs Labs: 12/28/16 05:40 12/28/16 05:40 Attending/Attestation - Attestation I have personally seen and examined this patient.: Yes I have fully participated in the care of the patient.: Yes I have reviewed all pertinent clinical information, including history, physical exam and plan: Yes Notes (Text): 12/28/16 12:40 71 year old male with past medical history of COPD and esophageal cancer who presented with COPD exacerbation. Symptoms are slowly improving on iv steroids, duonebs and antibiotics. Will begin to taper iv solumedrol. He reports some improvement of his back pain after starting flexeril yesterday. Leukocytosis noted likely secondary to recent steroids use. Will continue to monitor. Frankie Pina MD Hospitalist.
--- NOTE | 2016-12-28 19:35 | CON ---
DATE: 12/28/2016 PULMONARY CONSULTATION REQUESTING PHYSICIAN: Dr. Pina. CHIEF COMPLAINT: The patient presented with shortness of breath and cough and back pain. HISTORY OF PRESENT ILLNESS: Mr. Simms is a 71-year-old male with a history of severe COPD, oxygen dependent, esophageal CA, anemia and has a history of melanoma. The patient presented to the emergency room with shortness of breath, fever and back pain. The back pain was felt to be secondary to muscle spasm or pulled muscle that occurred while he was doing some physical therapy for pulmonary rehab. The patient also complained of cough and congestion associated with shortness of breath and dyspnea on exertion with diaphoresis. No nausea or vomiting. No diarrhea. No abdominal pain. No severe chest pain. PAST MEDICAL HISTORY: As above. ALLERGIES: HE HAS NO KNOWN ALLERGIES. MEDICATIONS: Can be evaluated as per the nurses intake form. SOCIAL HISTORY: He is a former smoker. No ETOH abuse. No substance abuse history. FAMILY HISTORY: Noncontributory. REVIEW OF SYSTEMS: CONSTITUTIONAL: The patient did present initially with a fever. HEENT: Within normal limits. RESPIRATORY: He has shortness of breath, cough and dyspnea on exertion. CARDIOVASCULAR: No chest pain. No palpitations. GASTROINTESTINAL: All negative. GENITOURINARY: All negative. MUSCULOSKELETAL: Has the back pain secondary to back spasm or a pulled muscle. NEUROPSYCHIATRIC: The patient does have anxiety. ENDOCRINE: All negative. HEMATOLOGICAL: Negative. IMMUNOLOGICAL: Negative. INTEGUMENTARY: All negative. PHYSICAL EXAMINATION: VITAL SIGNS: Note that his temperature is 98.2, his pulse is 90, respirations are 20 and BP is 134/82. SKIN: Warm and dry. HEENT: Head is atraumatic and normocephalic. Eyes are reactive to light. Ears, nose and throat seem to be within normal limit. NECK: Supple. No JVD. No thyroid enlargement. No lymph nodes. HEART: Has a regular rate and rhythm. Normal S1 and S2. LUNGS: Reveal decrease breath sounds bilaterally with occasional rhonchi at the bases. ABDOMEN: Soft, nontender. Normal bowel sounds. No organomegaly noted. GENITALIA: Deferred. RECTAL: Deferred. MUSCULOSKELETAL: No joint deformities. EXTREMITIES: Reveal no significant edema. NEUROLOGICAL: He seemed to be grossly intact. LABORATORY DATA: His white count is 21.3, hemoglobin is 8.9, hematocrit 29.2 with platelets of 352,000. Sodium is 135, potassium is 4.9, chloride 96, CO2 of 36 with a BUN of 21, creatinine of 0.5 and a glucose of 127. Chest x-ray reveals no acute cardiopulmonary pathology, bilateral hyperaeration and emphysema. IMPRESSION: This patient has acute exacerbation of his chronic obstructive pulmonary disease; also, he has a muscle spasm or pulled muscle in the back. He has a history of esophageal carcinoma. Note that respiratory failure and he is O2 dependent and the patient has a history of anemia as well as a past history of melanoma. PLAN: We will continue with DuoNeb as a bronchodilator. The patient is on Flexeril and he is getting Mucinex LA as well. He is on Rocephin as an antibiotics, getting Solu-Medrol, Tessalon Perles for cough and Zithromax as the second antibiotic. The patient is on Xanax for anxiety and getting Tylenol for any temperature p.r.n. Stephane Osborn MD
[2016-12-29] MEDS: Albuterol-Ipratrop 3 mg / 0.5 (3 ml) UD IH SCH ×4 (01:40→20:35)
[2016-12-29] MEDS: Pantoprazole 40 mg EC Tab PO SCH (06:35)
[2016-12-29 07:20] LABS: HEMATOCRIT 28.9 % (42.0-52.0); MEAN CELL VOLUME 80.7 fl (80.0-105.0); MEAN CORPUSCULAR HEMOGLOBIN 24.9 pg (25.0-35.0); MEAN CORPUSCULAR HGB CONC 30.8 g/dl (31.0-37.0); MEAN PLATELET VOLUME 8.8 fl (7.0-11.0); RED CELL DISTRIBUTION WIDTH 18.6 % (11.5-14.5); WHITE BLOOD COUNT 15.4 10^3/ul (4.5-11.0)
[2016-12-29 07:44] LABS: ALB/GLOB RATIO 1.2 (1.1-1.8); ALKALINE PHOSPHATASE 67 U/L (38-126); ALT/SGPT 41 U/L (7-56); AST/SGOT 30 U/L (17-59); BILIRUBIN,TOTAL 0.2 mg/dL (0.2-1.3); BLOOD UREA NITROGEN 15 mg/dL (7-21); CALCIUM 9.6 mg/dL (8.4-10.5); CARBON DIOXIDE 37 mmol/L (21-33); CHLORIDE 93 mmol/L (98-107); GFR AFRICAN-AMERICAN > 60; GLUCOSE,RANDOM 119 mg/dL (70-110); POTASSIUM 4.3 mmol/L (3.6-5.0); SODIUM 133 mmol/L (132-148); TOTAL PROTEIN 5.4 g/dL (5.8-8.3)
--- NOTE | 2016-12-29 09:40 | CP.PCM.PN ---
<Mark Li - Last Filed: 12/29/16 09:43> Subjective - Date & Time of Evaluation Date of Evaluation: 12/29/16 Time of Evaluation: 08:38 - Subjective Subjective: Patient seen and examined at bedside this morning. Per nursing no acute events occurred overnight. The patient is still complaining of shortness of breath at rest. The patient denies any chest pain, shortness of breath, nausea, vomiting , lightheadedness, sore throat, or any other complaints. Objective - Vital Signs/Intake and Output Vital Signs (last 24 hours): Temp Pulse Resp BP Pulse Ox 97.7 F 93 H 22 129/80 97 12/29/16 06:00 12/29/16 06:00 12/29/16 06:00 12/29/16 06:00 12/29/16 06:00 Intake and Output: 12/29/16 12/29/16 06:59 18:59 Intake Total 660 Output Total 700 Balance -40 - Medications Medications: Current Medications Acetaminophen (Tylenol 325mg Tab) 650 mg PO Q6H PRN PRN Reason: Fever >100.4 F Acetaminophen (Tylenol 325mg Tab) 650 mg PO Q4H PRN PRN Reason: Pain, Mild (1-3) Last Admin: 12/28/16 12:43 Dose: 650 mg Albuterol/Ipratropium (Duoneb 3 Mg/0.5 Mg (3 Ml) Ud) 3 ml IH Q2H PRN PRN Reason: Shortness of Breath Albuterol/Ipratropium (Duoneb 3 Mg/0.5 Mg (3 Ml) Ud) 3 ml IH [id number] [facility] Last Admin: 12/29/16 07:59 Dose: 3 ml Alprazolam (Xanax) 0.25 mg PO BID PRN; Protocol PRN Reason: Anxiety Stop: 01/01/17 22:47 Last Admin: 12/28/16 20:35 Dose: 0.25 mg Arformoterol Tartrate (Brovana) 15 mcg IH [id number] [facility] Aspirin (Ecotrin) 81 mg PO DAILY [facility] Last Admin: 12/28/16 10:42 Dose: 81 mg Benzonatate (Tessalon Perles) 200 mg PO TID [facility] Last Admin: 12/28/16 17:25 Dose: 200 mg Cyclobenzaprine HCl (Flexeril) 5 mg PO TID [facility] Last Admin: 12/28/16 17:25 Dose: 5 mg Escitalopram Oxalate (Lexapro) 5 mg PO DAILY [facility] Last Admin: 12/28/16 10:43 Dose: 5 mg Guaifenesin (Mucinex La) 600 mg PO BID [facility] Last Admin: 12/28/16 17:25 Dose: 600 mg Ceftriaxone Sodium (Rocephin 1 Gram Ivpb) 1 gm in 100 mls @ 100 mls/hr IVPB DAILY [facility] PRN Reason: Protocol Last Admin: 12/28/16 10:40 Dose: 100 mls/hr Azithromycin (Zithromax 500mg In Ns) 500 mg in 250 mls @ 167 mls/hr IVPB DAILY [facility] PRN Reason: Protocol Last Admin: 12/28/16 10:41 Dose: 167 mls/hr Methylprednisolone (Solu-Medrol) 30 mg IVP Q12 [facility] Last Admin: 12/28/16 22:02 Dose: 30 mg Pantoprazole Sodium (Protonix Ec Tab) 40 mg PO 0600 [facility] Last Admin: 12/29/16 06:35 Dose: 40 mg Pregabalin (Lyrica) 100 mg PO TID [facility] Last Admin: 12/28/16 17:25 Dose: 100 mg Sodium Chloride ([place] Nasal [place]) 0 ml NS Q6H PRN PRN Reason: Nasal congestion Last Admin: 12/27/16 13:17 Dose: 2 spr - Labs Labs: 12/29/16 06:30 12/29/16 06:30 - Head Exam Head Exam: ATRAUMATIC, NORMAL INSPECTION, NORMOCEPHALIC - Eye Exam Eye Exam: EOMI, Normal appearance, PERRL. absent: Periorbital tenderness Pupil Exam: NORMAL ACCOMODATION, PERRL. absent: Irregular, Unequal - ENT Exam ENT Exam: Mucous Membranes Moist, Normal Exam. absent: Normal Oropharynx, TM's Normal Bilaterally - Neck Exam Neck Exam: Full ROM, Normal Inspection. absent: Lymphadenopathy, Thyromegaly - Respiratory Exam Respiratory Exam: Clear to Ausculation Bilateral, NORMAL BREATHING PATTERN. absent: Accessory Muscle Use, Chest Wall Tenderness, Prolonged Expiratory Phase , Respiratory Distress - Cardiovascular Exam Cardiovascular Exam: REGULAR RHYTHM, RRR, +S1, +S2. absent: Gallop, Rubs - GI/Abdominal Exam GI & Abdominal Exam: Soft, Normal Bowel Sounds. absent: Tenderness, Hyperactive Bowel Sounds - Extremities Exam Extremities Exam: Full ROM, Normal Inspection. absent: Joint Swelling, Pedal Edema, Tenderness - Back Exam Back Exam: NORMAL INSPECTION. absent: CVA tenderness (L), CVA tenderness (R), paraspinal tenderness - Neurological Exam Neurological Exam: Alert, Awake, CN II-XII Intact, Oriented x3 - Psychiatric Exam Psychiatric exam: Normal Affect, Normal Mood - Skin Skin Exam: Dry, Intact Assessment and Plan - Assessment and Plan (Free Text) Assessment: 71 yo male with PMH of COPD, invasive esophageal CA, and melanoma presents with COPD exacerbation. Will taper steroids today and continue abx use. Flexeril has improved patients back pain. Plan: 1. COPD Exacerbation Continue Solumedrol 30 mg BID Continue Duonebs. Pulm rec's appreciated. Continue Tessalon Perles for cough Cultures negative at this time Continue Rocephin and Azithromycin BIPAP as needed 2. Leukocytosis Stable, secondary to steroid use. WBC 15.4 today. Trending down. Will monitor closely. Procal negative Cultures negative 3. Esophageal CA Outpatient follow up with Dr. Ferreira 4. Anxiety/Depression Continue home medications 5. PPX Protonix SCDs <Frankie Pina - Last Filed: 12/29/16 18:51> Objective - Vital Signs/Intake and Output Vital Signs (last 24 hours): Temp Pulse Resp BP Pulse Ox 98.4 F 115 H 20 129/73 95 12/29/16 17:10 12/29/16 18:00 12/29/16 17:10 12/29/16 17:10 12/29/16 17:10 Intake and Output: 12/29/16 12/29/16 06:59 18:59 Intake Total 660 Output Total 700 Balance -40 - Medications Medications: Current Medications Acetaminophen (Tylenol 325mg Tab) 650 mg PO Q6H PRN PRN Reason: Fever >100.4 F Acetaminophen (Tylenol 325mg Tab) 650 mg PO Q4H PRN PRN Reason: Pain, Mild (1-3) Last Admin: 12/28/16 12:43 Dose: 650 mg Albuterol/Ipratropium (Duoneb 3 Mg/0.5 Mg (3 Ml) Ud) 3 ml IH Q2H PRN PRN Reason: Shortness of Breath Albuterol/Ipratropium (Duoneb 3 Mg/0.5 Mg (3 Ml) Ud) 3 ml IH [id number] [facility] Last Admin: 12/29/16 13:43 Dose: 3 ml Alprazolam (Xanax) 0.25 mg PO BID PRN; Protocol PRN Reason: Anxiety Stop: 01/01/17 22:47 Last Admin: 12/28/16 20:35 Dose: 0.25 mg Arformoterol Tartrate (Brovana) 15 mcg IH [id number] [facility] Aspirin (Ecotrin) 81 mg PO DAILY [facility] Last Admin: 12/29/16 10:23 Dose: 81 mg Benzonatate (Tessalon Perles) 200 mg PO TID [facility] Last Admin: 12/29/16 17:12 Dose: 200 mg Cyclobenzaprine HCl (Flexeril) 5 mg PO TID [facility] Last Admin: 12/29/16 17:12 Dose: 5 mg Escitalopram Oxalate (Lexapro) 5 mg PO DAILY [facility] Last Admin: 12/29/16 10:23 Dose: 5 mg Guaifenesin (Mucinex La) 600 mg PO BID [facility] Last Admin: 12/29/16 17:12 Dose: 600 mg Home Med (Home Med) 0 unit PO QID [facility] Last Admin: 12/29/16 17:12 Dose: 1 unit Ceftriaxone Sodium (Rocephin 1 Gram Ivpb) 1 gm in 100 mls @ 100 mls/hr IVPB DAILY [facility] PRN Reason: Protocol Last Admin: 12/29/16 10:22 Dose: 100 mls/hr Azithromycin (Zithromax 500mg In Ns) 500 mg in 250 mls @ 167 mls/hr IVPB DAILY [facility] PRN Reason: Protocol Last Admin: 12/29/16 10:22 Dose: 167 mls/hr Methylprednisolone (Solu-Medrol) 30 mg IVP Q12 [facility] Last Admin: 12/29/16 10:23 Dose: 30 mg Pantoprazole Sodium (Protonix Ec Tab) 40 mg PO 0600 [facility] Last Admin: 12/29/16 06:35 Dose: 40 mg Pregabalin (Lyrica) 100 mg PO TID [facility] Last Admin: 12/29/16 17:11 Dose: 100 mg Sodium Chloride ([place] Nasal Confluence) 0 ml NS Q6H PRN PRN Reason: Nasal congestion Last Admin: 12/27/16 13:17 Dose: 2 spr - Labs Labs: 12/29/16 06:30 12/29/16 06:30 Attending/Attestation - Attestation I have personally seen and examined this patient.: Yes I have fully participated in the care of the patient.: Yes I have reviewed all pertinent clinical information, including history, physical exam and plan: Yes Notes (Text): 12/29/16 18:51 71 year old male with past medical history of COPD and esophageal cancer who presented with COPD exacerbation. Symptoms continue to slowly improve on iv steroids, duonebs and antibiotics. Continue with OOB to chair. PT evaluation was also requested. He reports some improvement of his back pain after starting flexeril. Leukocytosis noted likely secondary to recent steroids use. Will continue to monitor. Frankie Pina MD Hospitalist.
[2016-12-29] MEDS: cefTRIAXone 1 gm 1 GM/100 ML BAG IVPB SCH (10:22)
[2016-12-29] MEDS: Azithromycin 500MG/NS 250ml 500 MG/250 ML BAG IVPB SCH (10:22)
[2016-12-29] MEDS: MethylPREDNISolone 40 mg Vial IVP SCH ×2 (10:23→22:08)
[2016-12-29] MEDS: guaiFENesin 600 mg ER Tab PO SCH ×2 (10:23→17:12)
[2016-12-29] MEDS ORDERED: Aluminum Hydroxide/Magnesium 30 ML, DiphenhydrAMINE 75 MG, Lidocaine 2% Viscous 30 ML PO PRN (11:34)
[2016-12-29] MEDS: MAGIC MOUTHWASH PO SCH ×2 (13:42→17:12)
[2016-12-30] MEDS: Albuterol-Ipratrop 3 mg / 0.5 (3 ml) UD IH SCH ×4 (02:15→21:27)
[2016-12-30] MEDS: Pantoprazole 40 mg EC Tab PO SCH (06:26)
[2016-12-30 07:23] LABS: HEMATOCRIT 30.5 % (42.0-52.0); MEAN CELL VOLUME 80.7 fl (80.0-105.0); MEAN CORPUSCULAR HEMOGLOBIN 24.6 pg (25.0-35.0); MEAN CORPUSCULAR HGB CONC 30.5 g/dl (31.0-37.0); MEAN PLATELET VOLUME 8.6 fl (7.0-11.0); RED CELL DISTRIBUTION WIDTH 18.5 % (11.5-14.5); WHITE BLOOD COUNT 14.7 10^3/ul (4.5-11.0)
[2016-12-30 07:26] LABS: ALB/GLOB RATIO 1.2 (1.1-1.8); ALKALINE PHOSPHATASE 64 U/L (38-126); ALT/SGPT 49 U/L (7-56); AST/SGOT 25 U/L (17-59); BILIRUBIN,TOTAL 0.3 mg/dL (0.2-1.3); BLOOD UREA NITROGEN 15 mg/dL (7-21); CALCIUM 9.8 mg/dL (8.4-10.5); CHLORIDE 91 mmol/L (95-110); GFR AFRICAN-AMERICAN > 60; GLUCOSE,RANDOM 144 mg/dL (70-110); POTASSIUM 4.4 mmol/L (3.6-5.0); SODIUM 134 mmol/L (132-148); TOTAL PROTEIN 5.5 g/dL (5.8-8.3)
[2016-12-30 07:42] LABS: CARBON DIOXIDE 39 mmol/L (21-33)
[2016-12-30] MEDS: guaiFENesin 600 mg ER Tab PO SCH ×2 (09:01→17:29)
[2016-12-30] MEDS: cefTRIAXone 1 gm 1 GM/100 ML BAG IVPB SCH (09:02)
[2016-12-30] MEDS: Azithromycin 500MG/NS 250ml 500 MG/250 ML BAG IVPB SCH (09:02)
[2016-12-30] MEDS: MAGIC MOUTHWASH PO SCH ×4 (09:02→21:58)
[2016-12-30] MEDS: MethylPREDNISolone 40 mg Vial IVP SCH ×3 (09:04→22:00)
--- NOTE | 2016-12-30 10:04 | CP.PCM.PN ---
<Mark Li - Last Filed: 12/30/16 10:06> Subjective - Date & Time of Evaluation Date of Evaluation: 12/30/16 Time of Evaluation: 08:01 - Subjective Subjective: Patient seen and examined at bedside. Per nursing no acute events occurred overnight. The patient continues to report shortness of breath. The patient denies any chest pain, lightheadedness, headache, sore throat, abdominal pain, fevers, chills, or any other complaints. Objective - Vital Signs/Intake and Output Vital Signs (last 24 hours): Temp Pulse Resp BP Pulse Ox 98.4 F 82 20 113/60 98 12/30/16 06:00 12/30/16 06:00 12/30/16 06:00 12/30/16 06:00 12/30/16 06:00 Intake and Output: 12/30/16 12/30/16 06:59 18:59 Intake Total 540 Output Total 0 Balance 540 - Medications Medications: Current Medications Acetaminophen (Tylenol 325mg Tab) 650 mg PO Q6H PRN PRN Reason: Fever >100.4 F Last Admin: 12/30/16 09:01 Dose: 650 mg Acetaminophen (Tylenol 325mg Tab) 650 mg PO Q4H PRN PRN Reason: Pain, Mild (1-3) Last Admin: 12/28/16 12:43 Dose: 650 mg Albuterol/Ipratropium (Duoneb 3 Mg/0.5 Mg (3 Ml) Ud) 3 ml IH Q2H PRN PRN Reason: Shortness of Breath Albuterol/Ipratropium (Duoneb 3 Mg/0.5 Mg (3 Ml) Ud) 3 ml IH [id number] [facility] Last Admin: 12/30/16 07:45 Dose: 3 ml Alprazolam (Xanax) 0.25 mg PO BID PRN; Protocol PRN Reason: Anxiety Stop: 01/01/17 22:47 Last Admin: 12/29/16 22:08 Dose: 0.25 mg Arformoterol Tartrate (Brovana) 15 mcg IH [id number] [facility] Aspirin (Ecotrin) 81 mg PO DAILY [facility] Last Admin: 12/30/16 09:01 Dose: 81 mg Benzonatate (Tessalon Perles) 200 mg PO TID [facility] Last Admin: 12/30/16 09:01 Dose: 200 mg Cyclobenzaprine HCl (Flexeril) 5 mg PO TID [facility] Last Admin: 12/30/16 09:01 Dose: 5 mg Escitalopram Oxalate (Lexapro) 5 mg PO DAILY [facility] Last Admin: 12/30/16 09:01 Dose: 5 mg Guaifenesin (Mucinex La) 600 mg PO BID [facility] Last Admin: 12/30/16 09:01 Dose: 600 mg Home Med (Home Med) 0 unit PO QID [facility] Last Admin: 12/30/16 09:02 Dose: 1 unit Ceftriaxone Sodium (Rocephin 1 Gram Ivpb) 1 gm in 100 mls @ 100 mls/hr IVPB DAILY [facility] PRN Reason: Protocol Last Admin: 12/30/16 09:02 Dose: 100 mls/hr Azithromycin (Zithromax 500mg In Ns) 500 mg in 250 mls @ 167 mls/hr IVPB DAILY [facility] PRN Reason: Protocol Last Admin: 12/30/16 09:02 Dose: 167 mls/hr Methylprednisolone (Solu-Medrol) 20 mg IVP Q12 [facility] Pantoprazole Sodium (Protonix Ec Tab) 40 mg PO 0600 [facility] Last Admin: 12/30/16 06:26 Dose: 40 mg Pregabalin (Lyrica) 100 mg PO TID [facility] Last Admin: 12/30/16 09:01 Dose: 100 mg Sodium Chloride ([place] Nasal [place]) 0 ml NS Q6H PRN PRN Reason: Nasal congestion Last Admin: 12/27/16 13:17 Dose: 2 spr - Labs Labs: 12/30/16 06:30 12/30/16 06:30 - Head Exam Head Exam: ATRAUMATIC, NORMAL INSPECTION, NORMOCEPHALIC - Eye Exam Eye Exam: EOMI, Normal appearance, PERRL. absent: Periorbital tenderness Pupil Exam: NORMAL ACCOMODATION, PERRL. absent: Irregular, Unequal - ENT Exam ENT Exam: Mucous Membranes Moist, Normal Exam, Normal Oropharynx. absent: TM's Normal Bilaterally - Neck Exam Neck Exam: Full ROM, Normal Inspection. absent: Lymphadenopathy, Thyromegaly - Respiratory Exam Respiratory Exam: Decreased Breath Sounds. absent: Chest Wall Tenderness, Clear to Ausculation Bilateral, Prolonged Expiratory Phase, Respiratory Distress , NORMAL BREATHING PATTERN - Cardiovascular Exam Cardiovascular Exam: REGULAR RHYTHM, RRR, +S1, +S2. absent: Gallop, Rubs - GI/Abdominal Exam GI & Abdominal Exam: Soft, Normal Bowel Sounds. absent: Rigid, Tenderness, Hyperactive Bowel Sounds - Extremities Exam Extremities Exam: Full ROM. absent: Joint Swelling, Pedal Edema, Tenderness - Back Exam Back Exam: NORMAL INSPECTION. absent: CVA tenderness (L), CVA tenderness (R), paraspinal tenderness - Neurological Exam Neurological Exam: Alert, Awake, Normal Gait, Oriented x3 - Psychiatric Exam Psychiatric exam: Normal Affect, Normal Mood - Skin Skin Exam: Dry, Intact Assessment and Plan - Assessment and Plan (Free Text) Assessment: 71 yo male with PMH of COPD, invasive esophageal CA, and melanoma presents with COPD exacerbation. Will taper steroids today and continue abx use. Flexeril has improved patients back pain. Plan: 1. COPD Exacerbation Solumedrol 20 mg BID started. Continue to taper down. Continue Duonebs. Pulm rec's appreciated. Continue Tessalon Perles for cough Cultures negative at this time Continue Rocephin and Azithromycin BIPAP as needed 2. Leukocytosis Stable, secondary to steroid use. WBC 14.7 today. Trending down. Will monitor closely. Procal negative Sputum culture grew gram negative rods. Urine culture negative. Blood culture prelim negative. 3. Esophageal CA Outpatient follow up with Dr. Ferreira 4. Anxiety/Depression Continue home medications 5. PPX Protonix SCDs <Frankie Pina - Last Filed: 12/30/16 18:27> Objective - Vital Signs/Intake and Output Vital Signs (last 24 hours): Temp Pulse Resp BP Pulse Ox 98.4 F 110 H 20 113/60 98 12/30/16 06:00 12/30/16 14:00 12/30/16 06:00 12/30/16 06:00 12/30/16 06:00 Intake and Output: 12/30/16 12/30/16 06:59 18:59 Intake Total 540 Output Total 0 Balance 540 - Medications Medications: Current Medications Acetaminophen (Tylenol 325mg Tab) 650 mg PO Q6H PRN PRN Reason: Fever >100.4 F Last Admin: 12/30/16 09:01 Dose: 650 mg Acetaminophen (Tylenol 325mg Tab) 650 mg PO Q4H PRN PRN Reason: Pain, Mild (1-3) Last Admin: 12/28/16 12:43 Dose: 650 mg Albuterol/Ipratropium (Duoneb 3 Mg/0.5 Mg (3 Ml) Ud) 3 ml IH Q2H PRN PRN Reason: Shortness of Breath Albuterol/Ipratropium (Duoneb 3 Mg/0.5 Mg (3 Ml) Ud) 3 ml IH [id number] [facility] Last Admin: 12/30/16 13:57 Dose: 3 ml Alprazolam (Xanax) 0.25 mg PO BID PRN; Protocol PRN Reason: Anxiety Stop: 01/01/17 22:47 Last Admin: 12/29/16 22:08 Dose: 0.25 mg Arformoterol Tartrate (Brovana) 15 mcg IH [id number] [facility] Aspirin (Ecotrin) 81 mg PO DAILY [facility] Last Admin: 12/30/16 09:01 Dose: 81 mg Benzonatate (Tessalon Perles) 200 mg PO TID [facility] Last Admin: 12/30/16 17:28 Dose: 200 mg Cyclobenzaprine HCl (Flexeril) 5 mg PO TID [facility] Last Admin: 12/30/16 17:28 Dose: 5 mg Escitalopram Oxalate (Lexapro) 5 mg PO DAILY [facility] Last Admin: 12/30/16 09:01 Dose: 5 mg Guaifenesin (Mucinex La) 600 mg PO BID [facility] Last Admin: 12/30/16 17:29 Dose: 600 mg Home Med (Home Med) 0 unit PO QID [facility] Last Admin: 12/30/16 17:28 Dose: 1 unit Ceftriaxone Sodium (Rocephin 1 Gram Ivpb) 1 gm in 100 mls @ 100 mls/hr IVPB DAILY [facility] PRN Reason: Protocol Last Admin: 12/30/16 09:02 Dose: 100 mls/hr Azithromycin (Zithromax 500mg In Ns) 500 mg in 250 mls @ 167 mls/hr IVPB DAILY [facility] PRN Reason: Protocol Last Admin: 12/30/16 09:02 Dose: 167 mls/hr Methylprednisolone (Solu-Medrol) 20 mg IVP Q12 [facility] Last Admin: 12/30/16 12:54 Dose: Not Given Pantoprazole Sodium (Protonix Ec Tab) 40 mg PO 0600 [facility] Last Admin: 12/30/16 06:26 Dose: 40 mg Pregabalin (Lyrica) 100 mg PO TID [facility] Last Admin: 12/30/16 17:29 Dose: 100 mg Sodium Chloride ([place]era[place] Nasal [place]) 0 ml NS Q6H PRN PRN Reason: Nasal congestion Last Admin: 12/27/16 13:17 Dose: 2 spr - Labs Labs: 12/30/16 06:30 12/30/16 06:30 Attending/Attestation - Attestation I have personally seen and examined this patient.: Yes I have fully participated in the care of the patient.: Yes I have reviewed all pertinent clinical information, including history, physical exam and plan: Yes Notes (Text): 12/30/16 18:26 71 year old male with past medical history of COPD and esophageal cancer who presented with COPD exacerbation. Symptoms continue to slowly improve on iv steroids, duonebs and antibiotics. Will taper solumedrol today to 20 mg q12h. Sputum culture grew pseudomonas aeruginosa and his antibiotics is switched to cefepime. Leukocytosis noted likely secondary to recent steroids use. Will continue to monitor. He reports some improvement of his back pain after starting flexeril. Continue with OOB to chair. PT evaluation is pending. Frankie Pina MD Hospitalist.
[2016-12-30] MEDS: Cefepime 1gm in NS 100ml 1 GM/100 ML BAG IVPB SCH (22:06)
[2016-12-31] MEDS: Albuterol-Ipratrop 3 mg / 0.5 (3 ml) UD IH SCH ×3 (01:46→13:30)
[2016-12-31] MEDS: Pantoprazole 40 mg EC Tab PO SCH (05:46)
[2016-12-31 07:02] LABS: HEMATOCRIT 30.3 % (42.0-52.0); MEAN CELL VOLUME 81.5 fl (80.0-105.0); MEAN CORPUSCULAR HEMOGLOBIN 24.5 pg (25.0-35.0); MEAN PLATELET VOLUME 8.8 fl (7.0-11.0); RED CELL DISTRIBUTION WIDTH 18.4 % (11.5-14.5); WHITE BLOOD COUNT 16.9 10^3/ul (4.5-11.0)
[2016-12-31 07:41] LABS: ALB/GLOB RATIO 1.2 (1.1-1.8); ALKALINE PHOSPHATASE 67 U/L (38-126); ALT/SGPT 48 U/L (7-56); AST/SGOT 34 U/L (17-59); BILIRUBIN,TOTAL 0.1 mg/dL (0.2-1.3); BLOOD UREA NITROGEN 18 mg/dL (7-21); CALCIUM 9.5 mg/dL (8.4-10.5); CARBON DIOXIDE 39 mmol/L (21-33); CHLORIDE 92 mmol/L (98-107); GFR AFRICAN-AMERICAN > 60; GLUCOSE,RANDOM 114 mg/dL (70-110); POTASSIUM 4.6 mmol/L (3.6-5.0); SODIUM 134 mmol/L (132-148); TOTAL PROTEIN 5.4 g/dL (5.8-8.3)
[2016-12-31 10:17] VITALS: BP 143/89; PULSE 85; RESP 18; TEMP 98.9; O2SAT 96
[2016-12-31] MEDS: guaiFENesin 600 mg ER Tab PO SCH (10:50)
[2016-12-31] MEDS: MethylPREDNISolone 40 mg Vial IVP SCH (10:51)
[2016-12-31] MEDS: MAGIC MOUTHWASH PO SCH ×3 (11:02→14:37)
[2016-12-31] MEDS: Cefepime 1gm in NS 100ml 1 GM/100 ML BAG IVPB SCH (11:24)
--- NOTE | 2016-12-31 15:48 | CP.PCM.DIS ---
<Mark Li - Last Filed: 12/31/16 15:51> Provider - Provider Date of Admission: 12/25/16 22:00 Attending physician: Kesha Bolton MD Time Spent in preparation of Discharge (in minutes): 40 Hospital Course - Lab Results Lab Results: Micro Results 12/27/16 14:45 Sputum Gram Stain - Final 12/27/16 14:45 Sputum Sputum Culture - Final Pseudomonas Aeruginosa 12/26/16 03:05 Urine Urine Culture - Final No Growth (<1,000 CFU/ML) Most Recent Lab Values WBC 16.9 10^3/ul (4.5-11.0) H 12/31/16 06:51 RBC 3.72 10^6/uL (3.5-6.1) 12/31/16 06:51 Hgb 9.1 g/dL (14.0-18.0) L 12/31/16 06:51 Hct 30.3 % (42.0-52.0) L 12/31/16 06:51 MCV 81.5 fl (80.0-105.0) 12/31/16 06:51 MCH 24.5 pg (25.0-35.0) L 12/31/16 06:51 MCHC 30.0 g/dl (31.0-37.0) L 12/31/16 06:51 RDW 18.4 % (11.5-14.5) H 12/31/16 06:51 Plt Count 387 10^3/uL (120.0-450.0) 12/31/16 06:51 MPV 8.8 fl (7.0-11.0) 12/31/16 06:51 Gran % 88.4 % (50.0-68.0) H 12/25/16 19:50 Lymph % (Auto) 4.0 % (22.0-35.0) L 12/25/16 19:50 [place] % (Auto) 7.5 % (1.0-6.0) H 12/25/16 19:50 Eos % (Auto) 0.0 % (1.5-5.0) L 12/25/16 19:50 Baso % (Auto) 0.1 % (0.0-3.0) 12/25/16 19:50 Gran # 18.04 (1.4-6.5) H 12/25/16 19:50 Lymph # 0.8 (1.2-3.4) L 12/25/16 19:50 [place] # 1.5 (0.1-0.6) H 12/25/16 19:50 Eos # 0.0 (0.0-0.7) 12/25/16 19:50 Baso # 0.02 K/mm3 (0.0-2.0) 12/25/16 19:50 Neutrophils % (Manual) 89 % (50.0-70.0) H 12/25/16 19:50 Band Neutrophils % 1 % (0-2) 12/25/16 19:50 Lymphocytes % (Manual) 7 % (22.0-35.0) L 12/25/16 19:50 Monocytes % (Manual) 3 % (1.0-6.0) 12/25/16 19:50 pO2 197 mm/Hg (30-55) H 12/25/16 21:45 VBG pH 7.41 (7.32-7.43) 12/25/16 21:45 VBG pCO2 52.0 (40-60) 12/25/16 21:45 VBG HCO3 33.0 mmol/l (21-28) H 12/25/16 21:45 VBG Total CO2 34.6 mmol.L (22-28) H 12/25/16 21:45 VBG O2 Sat (Calc) 99.3 % (40-65) H 12/25/16 21:45 VBG Base Excess 6.9 mmol/L (0.0-2.0) H 12/25/16 21:45 VBG Potassium 3.9 mmol/L (3.6-5.2) 12/25/16 21:45 Sodium 133.0 mmol/L (132-148) 12/25/16 21:45 Chloride 101.0 mmol/L (98-107) 12/25/16 21:45 Glucose 123 mg/dl (75-110) H 12/25/16 21:45 Lactate 0.7 mmol/L (0.7-2.1) 12/25/16 21:45 FiO2 21.0 % 12/25/16 21:45 Sodium 134 mmol/L (132-148) 12/31/16 06:51 Potassium 4.6 mmol/L (3.6-5.0) 12/31/16 06:51 Chloride 92 mmol/L (98-107) L 12/31/16 06:51 Carbon Dioxide 39 mmol/L (21-33) H 12/31/16 06:51 Anion Gap 8 (10-20) L 12/31/16 06:51 BUN 18 mg/dL (7-21) 12/31/16 06:51 Creatinine 0.5 mg/dL (0.8-1.5) L 12/31/16 06:51 Est GFR ( Amer) > 60 12/31/16 06:51 Est GFR (Non-Af Amer) > 60 12/31/16 06:51 Random Glucose 114 mg/dL (70-110) H 12/31/16 06:51 Calcium 9.5 mg/dL (8.4-10.5) 12/31/16 06:51 Phosphorus 2.6 mg/dL (2.5-4.5) 12/26/16 07:11 Magnesium 1.9 mg/dL (1.7-2.2) 12/26/16 07:11 Total Bilirubin 0.1 mg/dL (0.2-1.3) L 12/31/16 06:51 AST 34 U/L (17-59) 12/31/16 06:51 ALT 48 U/L (7-56) 12/31/16 06:51 Alkaline Phosphatase 67 U/L (38-126) 12/31/16 06:51 Troponin I < 0.01 ng/mL 12/25/16 19:50 Total Protein 5.4 g/dL (5.8-8.3) L 12/31/16 06:51 Albumin 2.9 g/dL (3.0-4.8) L 12/31/16 06:51 Globulin 2.5 gm/dL 12/31/16 06:51 Albumin/Globulin Ratio 1.2 (1.1-1.8) 12/31/16 06:51 Procalcitonin 0.25 NG/ML (0.19-0.49) 12/26/16 08:00 Venous Blood Potassium 3.9 mmol/L (3.6-5.2) 12/25/16 21:45 Urine Color Yellow (YELLOW) 12/26/16 03:05 Urine Appearance Clear (CLEAR) 12/26/16 03:05 Urine pH 6.0 (4.7-8.0) 12/26/16 03:05 Ur Specific [place] >= 1.030 (1.005-1.035) 12/26/16 03:05 Urine Protein 30 mg/dL (<30 mg/dL) H 12/26/16 03:05 Urine Glucose (UA) Negative mg/dL (NEGATIVE) 12/26/16 03:05 Urine Ketones 15 mg/dL (NEGATIVE) H 12/26/16 03:05 Urine Blood Negative (NEGATIVE) 12/26/16 03:05 Urine Nitrate Negative (NEGATIVE) 12/26/16 03:05 Urine Bilirubin Negative (NEGATIVE) 12/26/16 03:05 Urine Urobilinogen 0.2 E.U./dL (<1 E.U./dL) 12/26/16 03:05 Ur Leukocyte Esterase Negative Matthew/uL (NEGATIVE) 12/26/16 03:05 Urine RBC 0 - 2 /hpf (0-2) 12/26/16 03:05 Urine WBC 0 - 2 /hpf (0-6) 12/26/16 03:05 Ur Epithelial Cells 0 - 2 /hpf (0-5) 12/26/16 03:05 Influenza Typ A,B (EIA) Negative for flu a/b (NEGATIVE) 12/25/16 20:15 - Hospital Course Hospital Course: Patient is a 71 yo male with PMHx of COPD, invasive esophageal CA, and melanoma presents with c/o worsening shortness of breath. Pt states that over the past 3-4 days he has had increased SOB over his usual baseline due to his history of emphysema. Pt states that he's had a constant, productive cough with minimal white sputum and subjective fever. Pt denied any alleviating or aggravating factors, as SOB continued even at rest. Pt states that he can only walk a short distance before becoming short of breath. At home patient requires oxygen, but does not use BIPAP. Pt also c/o back pain, in which he went to an urgent care center today. He was told that his muscle spasms were likely due to his constant coughing. The patient was given an Rx for muscle relaxers. Pt admits to 30 lb weight loss over the last month and is currently being followed by Dr. Ferreira for his esophageal CA, which is being treated with radiation. Pt denies CP, n/v/d, abdominal pain, chills, constipation, PEREIRA, fatigue, dizziness, or dysuria. Patient was admitted for COPD exacerbation. The patient was seen by Pulmonary Dr. Osborn while admitted. The patient was started on duonebs, steroids, rochephin, azithromycin and put on 2.5 Liters of oxygen via nasal cannula. The patient had a chest x ray done that showed no acute cardiopulmonary disease, and also a bilateral hyperaeration central right mid lung zone radiolucency -emphysematous changes possible. The patient was seen by PT who noted an increase in heart up to the 120's when ambulating on the floor and a desaturation in his oxygen in the low 80's and recommended TCU. The patient refused and said he would prefer home pt. The patient on physical exam had improved wheezing in all lung goff, a-febrile and a leukocytosis trending down. The patient was discharged with home PT services and a steroid taper. Discharge Exam - Head Exam Head Exam: ATRAUMATIC, NORMAL INSPECTION, NORMOCEPHALIC - Eye Exam Eye Exam: EOMI, Normal appearance, PERRL Pupil Exam: NORMAL ACCOMODATION, PERRL. absent: Irregular, Miosis, Unequal - ENT Exam ENT Exam: Mucous Membranes Moist, Normal Exam, Normal Oropharynx. absent: TM's Normal Bilaterally - Respiratory Exam Respiratory Exam: NORMAL BREATHING PATTERN, UNREMARKABLE. absent: Clear to PA & Lateral, Prolonged Expiratory Phase, Rales, Rhonchi, Respiratory Distress Additional comments: Crackles noted on right posterior lung base. - Cardiovascular Exam Cardiovascular Exam: REGULAR RHYTHM, RRR, +S1, +S2. absent: Gallop, Rubs - GI/Abdominal Exam GI & Abdominal Exam: Normal Bowel Sounds, Unremarkable. absent: Diminished Bowel Sounds, Distended, Hypoactive Bowel Sounds, Organomegaly - Back Exam Back exam: NORMAL INSPECTION. absent: CVA tenderness (L), CVA tenderness (R), paraspinal tenderness - Neurological Exam Neurological exam: Alert, CN II-XII Intact, Normal Gait, Oriented x3 - Psychiatric Exam Psychiatric exam: Normal Affect, Normal Mood - Skin Skin Exam: Dry, Intact Discharge Plan - Discharge Medications Prescriptions: Prednisone 40 mg PO DAILY #3 tablet Prednisone 30 mg PO DAILY #3 tablet Prednisone 20 mg PO DAILY #3 tablet Prednisone 15 mg PO DAILY #3 tablet - Follow Up Plan Condition: STABLE Disposition: HOME/ ROUTINE Instructions: Emphysema (DC), COPD (Chronic Obstructive Pulmonary Disease) (DC) Additional Instructions: Patient advised to f/u with PMD within one week of discharge. Patient advised to f/u with Pulmonary doctor within one week of discharge. Patient instructed to take 40 mg Prednisone for the first 3 days. Patient instructed to take 30 mg Prednisone for the next 3 days. Patient instructed to take 20mg Prednisone for the next 3 days. Patient instructed to take 15mg Prednisone for the next 3 days. Patient instructed to resume 15mg Home Prednisone after the 15mg Prednisone. Patient advised to return to emergency department for any new or worsening symptoms. <Jesika Gómez - Last Filed: 01/01/17 12:20> Provider - Provider Date of Admission: 12/25/16 22:00 Attending physician: Kesha Bolton MD Hospital Course - Lab Results Lab Results: Micro Results 12/27/16 14:45 Sputum Gram Stain - Final 12/27/16 14:45 Sputum Sputum Culture - Final Pseudomonas Aeruginosa 12/26/16 03:05 Urine Urine Culture - Final No Growth (<1,000 CFU/ML) Most Recent Lab Values WBC 16.9 10^3/ul (4.5-11.0) H 12/31/16 06:51 RBC 3.72 10^6/uL (3.5-6.1) 12/31/16 06:51 Hgb 9.1 g/dL (14.0-18.0) L 12/31/16 06:51 Hct 30.3 % (42.0-52.0) L 12/31/16 06:51 MCV 81.5 fl (80.0-105.0) 12/31/16 06:51 MCH 24.5 pg (25.0-35.0) L 12/31/16 06:51 MCHC 30.0 g/dl (31.0-37.0) L 12/31/16 06:51 RDW 18.4 % (11.5-14.5) H 12/31/16 06:51 Plt Count 387 10^3/uL (120.0-450.0) 12/31/16 06:51 MPV 8.8 fl (7.0-11.0) 12/31/16 06:51 Gran % 88.4 % (50.0-68.0) H 12/25/16 19:50 Lymph % (Auto) 4.0 % (22.0-35.0) L 12/25/16 19:50 [place]ill % (Auto) 7.5 % (1.0-6.0) H 12/25/16 19:50 Eos % (Auto) 0.0 % (1.5-5.0) L 12/25/16 19:50 Baso % (Auto) 0.1 % (0.0-3.0) 12/25/16 19:50 Gran # 18.04 (1.4-6.5) H 12/25/16 19:50 Lymph # 0.8 (1.2-3.4) L 12/25/16 19:50 [place] # 1.5 (0.1-0.6) H 12/25/16 19:50 Eos # 0.0 (0.0-0.7) 12/25/16 19:50 Baso # 0.02 K/mm3 (0.0-2.0) 12/25/16 19:50 Neutrophils % (Manual) 89 % (50.0-70.0) H 12/25/16 19:50 Band Neutrophils % 1 % (0-2) 12/25/16 19:50 Lymphocytes % (Manual) 7 % (22.0-35.0) L 12/25/16 19:50 Monocytes % (Manual) 3 % (1.0-6.0) 12/25/16 19:50 pO2 197 mm/Hg (30-55) H 12/25/16 21:45 VBG pH 7.41 (7.32-7.43) 12/25/16 21:45 VBG pCO2 52.0 (40-60) 12/25/16 21:45 VBG HCO3 33.0 mmol/l (21-28) H 12/25/16 21:45 VBG Total CO2 34.6 mmol.L (22-28) H 12/25/16 21:45 VBG O2 Sat (Calc) 99.3 % (40-65) H 12/25/16 21:45 VBG Base Excess 6.9 mmol/L (0.0-2.0) H 12/25/16 21:45 VBG Potassium 3.9 mmol/L (3.6-5.2) 12/25/16 21:45 Sodium 133.0 mmol/L (132-148) 12/25/16 21:45 Chloride 101.0 mmol/L (98-107) 12/25/16 21:45 Glucose 123 mg/dl (75-110) H 12/25/16 21:45 Lactate 0.7 mmol/L (0.7-2.1) 12/25/16 21:45 FiO2 21.0 % 12/25/16 21:45 Sodium 134 mmol/L (132-148) 12/31/16 06:51 Potassium 4.6 mmol/L (3.6-5.0) 12/31/16 06:51 Chloride 92 mmol/L (98-107) L 12/31/16 06:51 Carbon Dioxide 39 mmol/L (21-33) H 12/31/16 06:51 Anion Gap 8 (10-20) L 12/31/16 06:51 BUN 18 mg/dL (7-21) 12/31/16 06:51 Creatinine 0.5 mg/dL (0.8-1.5) L 12/31/16 06:51 Est GFR ( Amer) > 60 12/31/16 06:51 Est GFR (Non-Af Amer) > 60 12/31/16 06:51 Random Glucose 114 mg/dL (70-110) H 12/31/16 06:51 Calcium 9.5 mg/dL (8.4-10.5) 12/31/16 06:51 Phosphorus 2.6 mg/dL (2.5-4.5) 12/26/16 07:11 Magnesium 1.9 mg/dL (1.7-2.2) 12/26/16 07:11 Total Bilirubin 0.1 mg/dL (0.2-1.3) L 12/31/16 06:51 AST 34 U/L (17-59) 12/31/16 06:51 ALT 48 U/L (7-56) 12/31/16 06:51 Alkaline Phosphatase 67 U/L (38-126) 12/31/16 06:51 Troponin I < 0.01 ng/mL 12/25/16 19:50 Total Protein 5.4 g/dL (5.8-8.3) L 12/31/16 06:51 Albumin 2.9 g/dL (3.0-4.8) L 12/31/16 06:51 Globulin 2.5 gm/dL 12/31/16 06:51 Albumin/Globulin Ratio 1.2 (1.1-1.8) 12/31/16 06:51 Procalcitonin 0.25 NG/ML (0.19-0.49) 12/26/16 08:00 Venous Blood Potassium 3.9 mmol/L (3.6-5.2) 12/25/16 21:45 Urine Color Yellow (YELLOW) 12/26/16 03:05 Urine Appearance Clear (CLEAR) 12/26/16 03:05 Urine pH 6.0 (4.7-8.0) 12/26/16 03:05 Ur Specific [place] >= 1.030 (1.005-1.035) 12/26/16 03:05 Urine Protein 30 mg/dL (<30 mg/dL) H 12/26/16 03:05 Urine Glucose (UA) Negative mg/dL (NEGATIVE) 12/26/16 03:05 Urine Ketones 15 mg/dL (NEGATIVE) H 12/26/16 03:05 Urine Blood Negative (NEGATIVE) 12/26/16 03:05 Urine Nitrate Negative (NEGATIVE) 12/26/16 03:05 Urine Bilirubin Negative (NEGATIVE) 12/26/16 03:05 Urine Urobilinogen 0.2 E.U./dL (<1 E.U./dL) 12/26/16 03:05 Ur Leukocyte Esterase Negative Matthew/uL (NEGATIVE) 12/26/16 03:05 Urine RBC 0 - 2 /hpf (0-2) 12/26/16 03:05 Urine WBC 0 - 2 /hpf (0-6) 12/26/16 03:05 Ur Epithelial Cells 0 - 2 /hpf (0-5) 12/26/16 03:05 Influenza Typ A,B (EIA) Negative for flu a/b (NEGATIVE) 12/25/16 20:15 Attending/Attestation - Attestation I have personally seen and examined this patient.: Yes I have fully participated in the care of the patient.: Yes I have reviewed all pertinent clinical information, including history, physical exam and plan: Yes Notes (Text): 01/01/17 12:13 Patient was seen and examined with associate medical director. Agreed with resident assessment and plan. 71 yo male with PMH of chronic hypoxic respiratory failure due to end stage COPD, invasive esophageal CA, and melanoma was admitted with COPD exacerbation.Patient cough and dyspnea has improved.He is on base line hypoxia.He does has leukocytosis at the time of discharge.The leukocytosis is due to IV steroid.He has has been started on tapering dose of prednisone.He is afebrile.He is feeling at his base line.He will need repeat CBCin one week. Patient sputum has Psudomonas which is likely colonization / contaminated as there was no evidence of Pneumonia , we will not treat at this time. Management plan was discussed in detail with patient Education was provided.
== END 2016-12-31 19:10 | disposition home health service (06) | DRG 191 ==
LOC: ED 19:46 → ERH 22:00 → 3RNO 12-26 15:18
PROVIDERS: ADMIT Internal Medicine; ATTEND Internal Medicine
PROC: 5A09357 Assistance with Respiratory Ventilation, Less than 24 Consecutive Hours, Continuous Positive Airway Pressure (ICD-10-PCS; principal; 2016-12-26)
DX: J44.1 Chronic obstructive pulmonary disease with (acute) exacerbation (principal); J96.11 Chronic respiratory failure with hypoxia; C15.9 Malignant neoplasm of esophagus, unspecified; D64.9 Anemia, unspecified; D72.829 Elevated white blood cell count, unspecified; T38.0X5A Adverse effect of glucocorticoids and synthetic analogues, initial encounter; R09.3 Abnormal sputum; B96.5 Pseudomonas (aeruginosa) (mallei) (pseudomallei) as the cause of diseases classified elsewhere; F41.8 Other specified anxiety disorders; M54.9 Dorsalgia, unspecified; Z99.81 Dependence on supplemental oxygen; Z87.891 Personal history of nicotine dependence

== ENCOUNTER 2017-01-02 14:31 | Inpatient (IN) | payer OTHER, MEDICARE ==
[2017-01-02 14:31] VITALS: BMI 19.9
--- NOTE | 2017-01-02 15:01 | ED PDOC ---
Arrival/HPI - General Chief Complaint: Shortness Of Breath Time Seen by Provider: 01/02/17 14:37 Historian: Patient - Critical Care Critical Care Minutes: 30 minutes - History of Present Illness Narrative History of Present Illness (Text): 01/02/17 15:00 A 71 year old male, whose past medical history includes COPD, emphysema and esophageal cancer (finished chemotherapy 3 weeks ago; radiation last tx 1 month ago), presents to the emergency department complaining of shortness of breath and fever. Patient reports experiencing cough for 1 1/2 weeks and developed fever earlier today. He notes also experiencing right shoulder pain due to pulled muscle and currently takes relaxant medication for it. States he did not take any today. Patient denies of any chest pain, leg pain or swelling, appetite changes, or any other complaints. Also, patient mentions he has 2-3 Liters of home oxygen, and normal oxygen saturation is at 97% but has recently begun to drop. PMD: Dr. Ruiz Oncologist: Dr. Haro Past Medical History - Provider Review Nursing Documentation Reviewed: Yes - Infectious Disease Hx of Infectious Diseases: None - Tetanus Immunization Tetanus Immunization: Unknown - Cardiac Hx Cardiac Disorders: No - Pulmonary Hx Chronic Obstructive Pulmonary Disease (COPD): Yes Hx Emphysema: Yes - Neurological Hx Neurological Disorder: No - HEENT Hx HEENT Disorder: Yes (reading glasses) Hx Cataracts: Yes (b/l cat sx) Other/Comment: voice hoarse - Renal Hx Renal Disorder: No - Endocrine/Metabolic Hx Endocrine Disorders: No - Hematological/Oncological Hx Cancer: Yes (dx 07/2016 with esophageal ca) Hx Shingles: Yes (10/2016 r buttock around to r groin) Other/Comment: completed radiation treatments 12/13/16, skin ca basal cell and melanoma removed from back - Integumentary Hx Dermatological Disorder: Yes Hx Basal Cell Carcinoma: Yes (removed from back) Hx Melanoma: Yes (removed from back) Other/Comment: pt had shingles in 10/2015 r buttock around to r groin rash faded , "some" residual pain on lyrica - Musculoskeletal/Rheumatological Hx Arthritis: Yes ("all over") - Gastrointestinal Hx Gastrointestinal Disorders: Yes Other/Comment: weightt loss of about 30 lbs over the last 1 1/2 to 2 yrs - Genitourinary/Gynecological Hx Genitourinary Disorders: No - Psychiatric Hx Anxiety: Yes Hx Substance Use: No - Surgical History Hx Appendectomy: Yes (1974) Hx Cardiac Catheterization: Yes (04/22/2013) - Anesthesia Hx Anesthesia: Yes Hx Anesthesia Reactions: No Hx Malignant Hyperthermia: No - Suicidal Assessment Feels Threatened In Home Enviroment: No Family/Social History - Physician Review Nursing Documentation Reviewed: Yes Family/Social History: No Known Family HX Smoking Status: Former Smoker Hx Alcohol Use: No Hx Substance Use: No Hx Substance Use Treatment: No Allergies/Home Meds Allergies/Adverse Reactions: Allergies No Known Allergies Allergy (Verified 01/02/17 14:34) Home Medications: Home Meds Medication Instructions Recorded Confirmed ALPRAZolam [Xanax] 0.25 mg PO BID PRN 12/25/16 01/02/17 Albuterol Sulfate 2.5 mg IH Q6H PRN 12/25/16 01/02/17 Aspirin [Adult Low Dose Aspirin EC] 81 mg PO DAILY 12/25/16 01/02/17 Benzonatate 200 mg PO TID 12/25/16 01/02/17 Budesonide [Pulmicort Respules] 0.5 mg IH BID 12/25/16 01/02/17 Doxycycline Hyclate [Doryx] 100 mg PO DAILY 12/25/16 01/02/17 Escitalopram [Lexapro] 5 mg PO DAILY 12/25/16 01/02/17 Fluticasone/Salmeterol 500/50 1 puff IH BID 12/25/16 01/02/17 [Advair Diskus 500/50] Guaifenesin [Mucinex] 800 mg PO BID 12/25/16 01/02/17 Levalbuterol Tartrate [Xopenex Hfa] 2 puff IH Q6H PRN 12/25/16 01/02/17 Levocetirizine Dihydrochloride 5 mg PO DAILY 12/25/16 01/02/17 [Xyzal] Metaxalone 800 mg PO BID PRN 12/25/16 01/02/17 Multivit,Iron,Min 5/Folic Acid 1 tab PO DAILY 12/25/16 01/02/17 [Strovite Forte Caplet] Pantoprazole Sodium [Protonix] 40 mg PO DAILY 12/25/16 01/02/17 Prednisone [Shakira] 15 mg PO DAILY 12/25/16 01/02/17 Pregabalin [Lyrica] 100 mg PO TID 12/25/16 01/02/17 Quinine Sulfate [Qualaquin] 324 mg PO DAILY 12/25/16 01/02/17 Sucralfate [Carafate Oral Susp] 1 gm PO BID 12/25/16 01/02/17 Tiotropium [Spiriva] 18 mcg IH DAILY 12/25/16 01/02/17 Tramadol HCl/Acetaminophen 1 tab PO BID 12/25/16 01/02/17 [Acetaminophen-Tramadol HCl 325 mg-37.5 mg] diaZEpam [Valium] 5 mg PO DAILY 12/25/16 01/02/17 Review of Systems - Physician Review All systems were reviewed & negative as marked: Yes - Review of Systems Constitutional: Fevers Respiratory: SOB, Cough (wet productive cough) Cardiovascular: absent: Chest Pain Gastrointestinal: absent: Appetite Changes Musculoskeletal: Other (right shoulder pain due to pulled muscle, which he takes medications for; no leg pain or swelling) Physical Exam Vital Signs Reviewed: Yes Vital Signs Temp Pulse Resp BP Pulse Ox 01/02/17 17:03 100.0 F H 99 H 18 126/69 96 01/02/17 17:00 24 138/89 01/02/17 16:48 99 H 18 126/69 96 01/02/17 16:00 100 H 19 127/67 96 01/02/17 15:43 99.3 F 01/02/17 15:02 100.3 F H 01/02/17 14:45 103.0 F H 110 H 21 131/71 90 L 01/02/17 14:40 103.1 F H 110 H 19 131/71 90 L Temperature: Febrile Blood Pressure: Normal Pulse: Regular Respiratory Rate: Tachypneic Appearance: Positive for: Well-Appearing Pain Distress: None Mental Status: Positive for: Alert and Oriented X 3 - Systems Exam Head: Present: Atraumatic, Normocephalic Pupils: Present: PERRL Extroacular Muscles: Present: EOMI Conjunctiva: Present: Normal Mouth: Present: Moist Mucous Membranes Neck: Present: Normal Range of Motion Respiratory/Chest: Present: Wheezes (expiratory wheezing), Rhonchi (right lung rhonchi) Cardiovascular: Present: Regular Rate and Rhythm, Normal S1, S2. No: Murmurs Abdomen: Present: Normal Bowel Sounds. No: Tenderness, Distention, Peritoneal Signs Back: Present: Normal Inspection Upper Extremity: Present: Normal Inspection. No: Cyanosis, Edema Lower Extremity: No: Edema Neurological: Present: GCS=15, CN II-XII Intact, Speech Normal Skin: Present: Warm, Dry, Normal Color. No: Rashes Psychiatric: Present: Alert, Oriented x 3, Normal Insight, Normal Concentration Medical Decision Making ED Course and Treatment: 01/02/17 15:04 Impression: 71 year old male with shortness of breath, fever, and wet productive cough. Physical exam shows patient is tachypneic; right lung rhonchi , expiratory wheezing; no lower extremity edema. Differential Diagnosis included but are not limited to: Exacerbation COPD vs. Pneumonia Plan: -- EKG -- Chest X-ray -- Labs -- Tylenol -- Blood Gas -- Blood Culture -- Urine Culture -- Urinalysis -- Serology -- Reassess and disposition Prior Visits: Notes and results from previous visits were reviewed. Patient was last seen here in the emergency department on 12/25/2016 for shortness of breath. Patient was admitted. Progress Notes: EKG: Ordered, reviewed, and independently interpreted the EKG. Rate : 107 BPM Rhythm : Sinus tachycardia Interpretation : No ST-segment elevations or depressions, no T-wave inversions, normal intervals. Comparison : No previous EKG for comparison. 01/02/17 15:52 WBC elevated. Patient fever reduced. Patient treated with Vancomycin and Zosyn IV. IVF continued. Case discussed with Dr. Ferreira. He recommended Dr. Osborn for Pulmonary and Dr. Nye for IC. Case discussed with Dr. Bolton who agrees to admission to telemetry. CT Angio Chest IMPRESSION: Peripheral infiltrate in the right upper lobe consistent with pneumonia with a large lung abscess or cavity measuring 4.2 x 5.8 cm. No evidence of pulmonary embolus - Critical Care Critical Care Minutes: 30 minutes - Lab Interpretations Lab Results: 01/02/17 14:40 01/02/17 14:40 Lab Results 01/02/17 16:00: Urine Color Yellow, Urine Appearance Sl cloudy, Urine pH 7.5, Ur Specific [place] 1.020, Urine Protein Trace H, Urine Glucose (UA) Negative, Urine Ketones 15 H, Urine Blood Negative, Urine Nitrate Negative, Urine Bilirubin Negative, Urine Urobilinogen 0.2, Ur Leukocyte Esterase Negative, Urine RBC Negative, Urine WBC Negative, Ur Epithelial Cells 0 - 2, Amorphous Sediment Few 01/02/17 15:09: Influenza Typ A,B (EIA) Negative for flu a/b 01/02/17 14:40: Sodium 132, Chloride 93 L, Potassium 4.7, Carbon Dioxide 35 H, Anion Gap 9 L, BUN 18, Creatinine 0.5 L, Est GFR ( Amer) > 60, Est GFR ( Non-Af Amer) > 60, Random Glucose 84, Calcium 9.5, Phosphorus 2.5, Magnesium 1.9 , Total Bilirubin 0.8, AST 61 H D, ALT 45, Alkaline Phosphatase 88, Troponin I < 0.01, NT-Pro-B Natriuret Pep 154, Total Protein 6.4, Albumin 3.3, Globulin 3.1 , Albumin/Globulin Ratio 1.1 01/02/17 14:40: pO2 95 H, VBG pH 7.43, VBG pCO2 56.0, VBG HCO3 37.2 H, VBG Total CO2 38.9 H, VBG O2 Sat (Calc) 98.6 H, VBG Base Excess 10.7 H, VBG Potassium 4.4, Sodium 131.0 L, Chloride 96.0 L, Glucose 89, Lactate 0.9, FiO2 21.0, Venous Blood Potassium 4.4 01/02/17 14:40: PT 11.9, INR 1.08, APTT 32.7 01/02/17 14:40: WBC 26.3 H* D, RBC 3.93, Hgb 9.8 L, Hct 32.0 L, MCV 81.4, MCH 24.9 L, MCHC 30.6 L, RDW 18.5 H, Plt Count 394, MPV 9.4, Gran % 95.8 H, Lymph % (Auto) 1.3 L, Elk % (Auto) 2.4, Eos % (Auto) 0.3 L, Baso % (Auto) 0.2, Gran # 25.18 H, Lymph # 0.4 L, Elk # 0.6, Eos # 0.1, Baso # 0.04, Neutrophils % ( Manual) 94 H, Band Neutrophils % 1, Lymphocytes % (Manual) 1 L, Monocytes % ( Manual) 4, Platelet Evaluation Normal, Hypochromasia 1+ I have reviewed the lab results: Yes - RAD Interpretation Radiology Orders: 01/02/17 14:54 CHEST PORTABLE [RAD] Stat 01/02/17 15:44 ANGIO CHEST PE PROTOCOL [CT] Stat - Medication Orders Current Medication Orders: Acetaminophen (Tylenol 325mg Tab) 650 mg PO Q6H PRN PRN Reason: Fever >100.4 F Albuterol/Ipratropium (Duoneb 3 Mg/0.5 Mg (3 Ml) Ud) 3 ml IH [id number] COLTON Albuterol/Ipratropium (Duoneb 3 Mg/0.5 Mg (3 Ml) Ud) 3 ml IH Q2H PRN PRN Reason: Shortness of Breath Alprazolam (Xanax) 0.25 mg PO BID PRN; Protocol PRN Reason: Anxiety Stop: 01/09/17 18:01 Aspirin (Aspirin Chewable) 81 mg PO DAILY COLTON Enoxaparin Sodium (Lovenox) 40 mg SC DAILY COLTON PRN Reason: Protocol Escitalopram Oxalate (Lexapro) 5 mg PO DAILY COLTON Guaifenesin (Mucinex La) 600 mg PO BID COLTON Vancomycin HCl (Vancomycin 1gm) 1 gm in 250 mls @ 167 mls/hr IVPB Q12H COLTON PRN Reason: Protocol Piperacillin Sod/Tazobactam Sod (Zosyn 3.375 In Ns 100ml) 100 mls @ 200 mls/hr IVPB Q6H COLTON PRN Reason: Protocol Stop: 01/03/17 04:37 Methylprednisolone (Solu-Medrol) 40 mg IVP DAILY COLTON Pantoprazole Sodium (Protonix Ec Tab) 40 mg PO 0600 COLTON Pregabalin (Lyrica) 100 mg PO TID [place]TON Sucralfate (Carafate Oral Susp) 1 gm PO 0600,1600 COLTON Tramadol/Acetaminophen (Ultracet 37.5/325 Mg) 1 tab PO Q12H PRN PRN Reason: Pain, moderate (4-7) Discontinued Medications Acetaminophen (Tylenol 325mg Tab) 975 mg PO STAT STA Stop: 01/02/17 14:55 Last Admin: 01/02/17 15:02 Dose: 975 mg MAR Pain/Vitals Document 01/02/17 15:02 IT (Rec: 01/02/17 15:02 IT [id number]) Pain Reassessment Is This A Pain ReAssessment? No Sleep Is patient sleeping during reassessment? No Presence of Pain Presence of Pain No Vitals Temperature (97.6 F-99.6 F) 100.3 F Temperature Source Rectal Vancomycin HCl (Vancomycin 1gm) 1 gm in 250 mls @ 167 mls/hr IVPB STAT STA PRN Reason: Protocol Stop: 01/02/17 17:08 Last Admin: 01/02/17 16:37 Dose: 167 mls/hr eMAR Start Stop Document 01/02/17 16:37 IT (Rec: 01/02/17 16:44 IT [id number]) Intravenous Solution Start Date 01/02/17 Start Time 16:43 End Date 01/02/17 End time 18:43 Total Infusion Time 120 Piperacillin Sod/Tazobactam Sod (Zosyn 4.5 Gm In Ns 100ml) 4.5 gm in 100 mls @ 200 mls/hr IVPB STAT STA PRN Reason: Protocol Stop: 01/02/17 16:08 Last Admin: 01/02/17 15:59 Dose: 200 mls/hr eMAR Start Stop Document 01/02/17 15:59 IT (Rec: 01/02/17 16:00 IT [id number]) Intravenous Solution Start Date 01/02/17 Start Time 16:00 End Date 01/02/17 End time 16:30 Total Infusion Time 30 Piperacillin Sod/Tazobactam Sod (Zosyn 3.375 In Ns 100ml) 100 mls @ 200 mls/hr IVPB Q6 COLTON PRN Reason: Protocol Stop: 01/03/17 00:29 Methylprednisolone (Solu-Medrol) 125 mg IVP STAT STA Stop: 01/02/17 14:56 Last Admin: 01/02/17 15:02 Dose: 125 mg IVP Administration Document 01/02/17 15:02 IT (Rec: 01/02/17 15:03 IT [id number]) Charges for Administration # of IVP Administrations 1 - Scribe Statement The provider has reviewed the documentation as recorded by the Anjuibdawson Peace Provider Scribe Attestation: All medical record entries made by the Scribe were at my direction and personally dictated by me. I have reviewed the chart and agree that the record accurately reflects my personal performance of the history, physical exam, medical decision making, and the department course for this patient. I have also personally directed, reviewed, and agree with the discharge instructions and disposition. Disposition/Present on Arrival - Present on Arrival Any Indicators Present on Arrival: No History of DVT/PE: No History of Uncontrolled Diabetes: No Urinary Catheter: No History of Decub. Ulcer: No History Surgical Site Infection Following: None - Disposition Have Diagnosis and Disposition been Completed?: Yes Diagnosis: Pneumonia, Lung abscess Disposition: HOSPITALIZED Disposition Time: 15:47 Patient Plan: Admission Condition: CRITICAL
[2017-01-02 15:14] LABS: BASO % 0.2 % (0.0-3.0); EOS % 0.3 % (1.5-5.0); GRAN % 95.8 % (50.0-68.0); LYMPH % 1.3 % (22.0-35.0); MEAN CELL VOLUME 81.4 fl (80.0-105.0); MEAN CORPUSCULAR HEMOGLOBIN 24.9 pg (25.0-35.0); MEAN CORPUSCULAR HGB CONC 30.6 g/dl (31.0-37.0); MEAN PLATELET VOLUME 9.4 fl (7.0-11.0); MONO % 2.4 % (1.0-6.0); PLATELET COUNT 394 10^3/uL (120.0-450.0); RED CELL DISTRIBUTION WIDTH 18.5 % (11.5-14.5)
[2017-01-02 15:15] LABS: BASO # 0.04 K/mm3 (0.0-2.0); EOS # 0.1 (0.0-0.7); GRAN # 25.18 (1.4-6.5); LYMPH # 0.4 (1.2-3.4); MONO # 0.6 (0.1-0.6)
[2017-01-02 15:18] LABS: WHITE BLOOD COUNT 26.3 10^3/ul (4.5-11.0)
[2017-01-02 15:20] LABS: VENOUS BLOOD GAS BASE EXCESS 10.7 mmol/L (0.0-2.0); VENOUS BLOOD PH 7.43 (7.32-7.43)
--- NOTE | 2017-01-02 15:23 | RAD ---
HISTORY: Sepsis Patient COMPARISON: 12/25/2016 FINDINGS: LUNGS: There is extensive interval change in the appearance of the right gregoria thorax: Interval increase diffuse pleural based patchy coalescing opacities now noted. Possible right pleural loculations with or without parenchymal pulmonary abscesses. . Left lung is clear Background COPD possible PLEURA: As above. No pneumothorax CARDIOVASCULAR: Heart mediastinal shift structures are chronically shifted/projecting over the right hemithorax OSSEOUS STRUCTURES: Diffuse thoracic spondylosis VISUALIZED UPPER ABDOMEN: Normal. OTHER FINDINGS: None. IMPRESSION: Extensive interval change - right gregoria thorax: Interval increased diffuse pleural based patchy coalescing opacities now noted. Possible right pleural loculations with or without right contiguous pulmonary abscesses. Consider CT chest imaging with contrast enhancement for further evaluation.
[2017-01-02 15:25] LABS: ALB/GLOB RATIO 1.1 (1.1-1.8); ALKALINE PHOSPHATASE 88 U/L (38-126); ALT/SGPT 45 U/L (7-56); AST/SGOT 61 U/L (17-59); BILIRUBIN,TOTAL 0.8 mg/dL (0.2-1.3); BLOOD UREA NITROGEN 18 mg/dL (7-21); CALCIUM 9.5 mg/dL (8.4-10.5); CARBON DIOXIDE 35 mmol/L (21-33); CHLORIDE 93 mmol/L (98-107); GFR AFRICAN-AMERICAN > 60; GLUCOSE,RANDOM 84 mg/dL (70-110); MAGNESIUM 1.9 mg/dL (1.7-2.2); PHOSPHOROUS 2.5 mg/dL (2.5-4.5); SODIUM 132 mmol/L (132-148); TOTAL PROTEIN 6.4 g/dL (5.8-8.3)
[2017-01-02 15:27] LABS: POTASSIUM 4.7 mmol/L (3.6-5.0)
[2017-01-02 15:29] LABS: INR 1.08 (0.93-1.08); PARTIAL THROMBOPLASTIN TIME 32.7 Seconds (25.1-36.5)
[2017-01-02] MEDS ORDERED: Piperacill/Tazo 4.5gm in NS 4.5 GM/100 ML BAG IVPB STA (15:39)
[2017-01-02] MEDS ORDERED: Vancomycin 1gm in NS 250ml 1 GM/250 ML BAG IVPB STA (15:39)
[2017-01-02 15:41] LABS: TROPONIN I < 0.01 ng/mL
[2017-01-02] MEDS ORDERED: Iohexol 350 MG/100 ML VIAL ONE (16:10)
[2017-01-02 16:19] LABS: PH,URINE 7.5 (4.7-8.0); URINE BILIRUBIN NEGATIVE (NEGATIVE); URINE BLOOD NEGATIVE (NEGATIVE); URINE GLUCOSE (UA) NEGATIVE (NEGATIVE); URINE KETONE 15 mg/dL (NEGATIVE); URINE LEUKOCYTE ESTERASE NEGATIVE Leu/uL (NEGATIVE); URINE PROTEIN TRACE mg/dL (<30 mg/dL); URINE UROBILINOGEN 0.2 E.U./dL (<1 E.U./dL)
[2017-01-02 16:21] LABS: URINE APPEARANCE SL CLOUDY (CLEAR); URINE COLOR YELLOW (YELLOW)
[2017-01-02 16:22] LABS: URINE AMORPHOUS SEDIMENT FEW; URINE EPITHELIAL CELLS 0 - 2 /hpf (0-5); URINE RBC NEGATIVE /hpf (0-2); URINE WBC NEGATIVE /hpf (0-6)
[2017-01-02 16:48] LABS: BAND 1 % (0-2); NEUTROPHIL 94 % (50.0-70.0)
--- NOTE | 2017-01-02 16:48 | CP.PCM.HP ---
<Rea Wolf - Last Filed: 01/02/17 20:54> History of Present Illness - History of Present Illness History of Present Illness: Patient is a 71 year old male with past medical history of End-Stage COPD, invasive esophageal CA and melanoma who was recently admitted for COPD exacerbation presents with worsening shortness of breath, cough with fevers. Patient was discharged home on Saturday12/31/16. States that Saturday evening, breathing and cough was getting worse. On Saturday he was having worsening of symptoms with fever. Took ibuprofen with minimal relief. States that he uses 2- 3L O2 at home. Ambulates without assistance. Offers no other complaints at this time. Denies headaches, dizziness, cp, palpitations, abdominal pain, urinary symptoms, changes in bowel habits. ED course: Vancomycin, Zosyn, Solumedrol 125mg IVP Allergies: NKDA Medications: Please see MAR Medical History: End stage COPD, Invasive Esophageal CA, Basal Cell CA s/p removal Surgical History: Appendectomy, Basal Cell CA removal Social History: Former heavy smoker, quit 10-15 years ago, denies alcohol/drug use; lives with his Family History: Non-contributory Present on Admission - Present on Admission Any Indicators Present on Admission: No Review of Systems - Constitutional Constitutional: Fever. absent: Chills, Headache, Night Sweats - EENT Eyes: absent: Blurred Vision, Change in Vision Ears: absent: Dizziness - Cardiovascular Cardiovascular: Dyspnea. absent: Chest Pain, Lightheadedness, Palpitations - Respiratory Respiratory: Cough, Dyspnea, Wheezing - Gastrointestinal Gastrointestinal: absent: Abdominal Pain, Bloating, Constipation, Diarrhea, Nausea, Vomiting - Genitourinary Genitourinary: absent: Dysuria, Urinary Frequency - Musculoskeletal Musculoskeletal: absent: Numbness, Tingling - Neurological Neurological: absent: Confusion, Dizziness, Numbness, Headaches, Tingling Past Patient History - Infectious Disease Hx of Infectious Diseases: None - Tetanus Immunizations Tetanus Immunization: Unknown - Past Social History Smoking Status: Former Smoker - CARDIAC Hx Cardiac Disorders: No - PULMONARY Hx Chronic Obstructive Pulmonary Disease (COPD): Yes Hx Emphysema: Yes - NEUROLOGICAL Hx Neurological Disorder: No - HEENT Hx HEENT Problems: Yes (reading glasses) Hx Cataracts: Yes (b/l cat sx) Other/Comment: voice hoarse - RENAL Hx Chronic Kidney Disease: No - ENDOCRINE/METABOLIC Hx Endocrine Disorders: No - HEMATOLOGICAL/ONCOLOGICAL Hx Cancer: Yes (dx 07/2016 with esophageal ca) Hx Shingles: Yes (10/2016 r buttock around to r groin) Other/Comment: completed radiation treatments 12/13/16, skin ca basal cell and melanoma removed from back - INTEGUMENTARY Hx Dermatological Problems: Yes 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) Hx Melanoma: Yes (removed from back) Other/Comment: pt had shingles in 10/2015 r buttock around to r groin rash faded , "some" residual pain on lyrica - MUSCULOSKELETAL/RHEUMATOLOGICAL Hx Arthritis: Yes ("all over") - GASTROINTESTINAL Hx Gastrointestinal Disorders: Yes Other/Comment: weightt loss of about 30 lbs over the last 1 1/2 to 2 yrs - GENITOURINARY/GYNECOLOGICAL Hx Genitourinary Disorders: No - PSYCHIATRIC Hx Anxiety: Yes Hx Substance Use: No - SURGICAL HISTORY Hx Appendectomy: Yes (1974) Hx Cardiac Catheterization: Yes (04/22/2013) - ANESTHESIA Hx Anesthesia: Yes Hx Anesthesia Reactions: No Hx Malignant Hyperthermia: No Meds Allergies/Adverse Reactions: Allergies Allergy/AdvReac Type Severity Reaction Status Date / Time No Known Allergies Allergy Verified 01/02/17 14:34 Physical Exam - Constitutional Appears: Well, Non-toxic - Head Exam Head Exam: ATRAUMATIC, NORMAL INSPECTION - Eye Exam Eye Exam: EOMI, Normal appearance Pupil Exam: NORMAL ACCOMODATION - ENT Exam ENT Exam: Mucous Membranes Moist - Neck Exam Neck exam: Positive for: Full Rom - Respiratory Exam Respiratory Exam: Decreased Breath Sounds, Rhonchi, Wheezes, NORMAL BREATHING PATTERN - Cardiovascular Exam Cardiovascular Exam: REGULAR RHYTHM, +S1, +S2 - GI/Abdominal Exam GI & Abdominal Exam: Normal Bowel Sounds, Soft. absent: Guarding, Rebound, Rigid, Tenderness - Extremities Exam Extremities exam: Positive for: full ROM, normal inspection, pedal pulses present - Back Exam Back exam: NORMAL INSPECTION - Neurological Exam Neurological exam: Alert, Oriented x3 - Psychiatric Exam Psychiatric exam: Normal Affect, Normal Mood - Skin Skin Exam: Dry, Normal Color, Warm Results - Vital Signs Recent Vital Signs: Last Vital Signs Temp 99.3 F 01/02/17 15:43 Pulse 100 H 01/02/17 16:00 Resp 19 01/02/17 16:00 BP 127/67 01/02/17 16:00 Pulse Ox 96 01/02/17 16:00 - Labs Result Diagrams: 01/02/17 14:40 01/02/17 14:40 Assessment & Plan - Assessment and Plan (Free Text) Assessment: Patient is a 71 year old male with past medical history of End-Stage COPD, invasive esophageal CA who was recently admitted for COPD exacerbation presents with worsening shortness of breath, cough with fevers. Currently treating for HCAP with lung abscess likely 2/2 aspiration and COPD exacerbation. Plan: 1. Hospital Acquired Pneumonia with Lung Abscess likely 2/2 Aspiration -Tmax 103.1 on arrival, currently afebrile -WBC 26.3 on admission; WBC was 16.9 prior to discharge on Saturday -CXR showing interval increasing diffuse pleural based patchy coalescing opacities -CT chest showing peripheral infiltrate in the right upper lobe c/w pneumonia with a large abscess or cavity (see full report) -Tylenol prn fever, Mucinex BID -Abx: Vancomycin 1gm Q12H and Zosyn 3.375 Q6H -Influenza negative -Sputum cx on prior admission grew pseudomonas -Procal ordered, Repeat Sputum cx, urine legionella/strep ag -UA negative, F/U blood, urine cultures -F/U quantiferon gold -Aspiration precautions -ID on consult, f/u recommendations 2. COPD Exacerbation -Has a history chronic hypoxemic respiratory failure -Recieved loading dose of solu-medrol in the ED -Will continue solu-medrol 40mg daily -Duonebs q4H COLTON, Duonebs q2H prn SOB -Pulmonology on consult, f/u recommendations 3. Hx of Invasive Esophageal CA -Last round of radiation was 4 weeks ago -Diet: soft foods -Heme/onc on consult, f/u recommendations 4. Back Pain likely musculoskeletal -Tramadol/Acetominophen prn pain -May benefit from muscle relaxant -Continue to monitor 5. Hx of anxiety/depression -Xanax prn -Continue Lexapro 6. Anemia likely 2/2 chronic disease -Hgb 9.8 (appears to be stable since last admission) -Continue to monitor GI/DVT ppx Protonix/Carafate Lovenox 40mg sc daily Plan d/w Dr Gómez <Jesika Gómez - Last Filed: 01/03/17 14:26> Results - Vital Signs Recent Vital Signs: Last Vital Signs Temp 98.6 F 01/03/17 12:00 Pulse 75 01/03/17 12:00 Resp 18 01/03/17 12:00 BP 129/59 L 01/03/17 12:00 Pulse Ox 96 01/02/17 17:03 - Labs Result Diagrams: 01/03/17 07:02 01/03/17 07:02 Labs: Laboratory Results - last 24 hr 01/03/17 01/03/17 07:02 07:02 WBC 23.0 H RBC 3.47 L Hgb 8.6 L Hct 28.0 L MCV 80.7 MCH 24.8 L MCHC 30.7 L RDW 18.6 H Plt Count 315 MPV 8.5 Gran % 95.1 H Lymph % (Auto) 1.5 L Reagan % (Auto) 3.3 Eos % (Auto) 0.0 L Baso % (Auto) 0.1 Gran # 21.86 H Lymph # 0.4 L Reagan # 0.8 H Eos # 0.0 Baso # 0.02 Sodium 137 Potassium 4.2 Chloride 96 L Carbon Dioxide 37 H Anion Gap 8 L BUN 18 Creatinine 0.4 L Est GFR ( Amer) > 60 Est GFR (Non-Af Amer) > 60 Random Glucose 152 H Calcium 9.2 Phosphorus 3.1 Magnesium 2.1 Total Bilirubin 0.2 AST 29 ALT 47 Alkaline Phosphatase 87 Total Protein 5.3 L Albumin 2.8 L Globulin 2.5 Albumin/Globulin Ratio 1.1 Attending/Attestation - Attestation I have personally seen and examined this patient.: Yes I have fully participated in the care of the patient.: Yes I have reviewed all pertinent clinical information: Yes Notes (Text): 01/03/17 14:23 Patient was seen and examined with medical technician. Agreed with resident assessment and plan. 71 yo male with PMH of chronic hypoxic respiratory failure due to end stage COPD, invasive esophageal CA, and melanoma was recently discharged from hospital after treatment of acute COPD exacerbation on tapering dose of prednisone is admitted with fever/chill and worsening cough, found to HCAP Pneumonia /Lung abscess.We will continue Vancomycin and Zosyn.We will follow up cultures. We will get ID and Pulmonary evaluation. Issue of DNR and DNI was discussed with patient in front of his son.He is DNR but not DNI. Management plan was discussed in detail with patient Education was provided.
[2017-01-02 16:49] LABS: HYPOCHROMIA 1+; PLATELET ESTIMATE NORMAL (NORMAL)
--- NOTE | 2017-01-02 17:06 | CT ---
PROCEDURE: CT Chest with contrast (Pulmonary Angiogram) HISTORY: pna r/o abscess r/o pulmonary embolism COMPARISON: CT of the chest 03/26/2014 and recent portable chest x-rays 12/25/2016 and 01/02/2017. TECHNIQUE: Axial computed tomography images were obtained of the chest in the pulmonary arterial phase of enhancement. Coronal and sagittal reformatted images were created and reviewed. Intravenous contrast dose: 100 cc of Omni 350 Radiation dose: Total exam DLP = 366 mGy-cm. This CT exam was performed using one or more of the following dose reduction techniques: Automated exposure control, adjustment of the mA and/or kV according to patient size, and/or use of iterative reconstruction technique. FINDINGS: PULMONARY ARTERIES: Unremarkable. No pulmonary embolism. AORTA: No acute findings. No thoracic aortic aneurysm. LUNGS: There is a large lung abscess or cavity in the right upper lobe posteriorly measuring 4.2 x 5.8 cm. This is best seen on image 40 series 5. There is some adjacent consolidation along the periphery of the right upper lobe consistent with pneumonia PLEURAL SPACES: Unremarkable. No effusion or pneuomothorax. HEART: Unremarkable. No cardiomegaly. No significant pericardial effusion. LYMPH NODES: No lymphadenopathy. BONES, CHEST WALL: Unremarkable. No fracture or destructive lesion OTHER FINDINGS: Unremarkable. IMPRESSION: Peripheral infiltrate in the right upper lobe consistent with pneumonia with a large lung abscess or cavity measuring 4.2 x 5.8 cm. No evidence of pulmonary embolus
[2017-01-02] MEDS ORDERED: Piperacillin/Tazobact 3.375 gm 100 ML IVPB SCH ×2 (18:00→22:08)
[2017-01-02] MEDS: Enoxaparin 40 mg Syringe SC SCH (18:57)
[2017-01-02] MEDS: guaiFENesin 600 mg ER Tab PO SCH (18:58)
[2017-01-02] MEDS: Vancomycin 1gm in NS 250ml 1 GM/250 ML BAG IVPB SCH (18:58)
[2017-01-02] MEDS: Albuterol-Ipratrop 3 mg / 0.5 (3 ml) UD IH PRN (19:03)
[2017-01-02] MEDS: Albuterol-Ipratrop 3 mg / 0.5 (3 ml) UD IH SCH ×2 (19:03→23:13)
[2017-01-02] MEDS: TraMADol/Apap 37.5/325 mg Tab PO PRN (22:48)
[2017-01-02] MEDS: Meropenem 1g/NS 100mL IVPB 1 GM/100 ML PIGGYBACK IVPB SCH (23:23)
[2017-01-03] MEDS: Vancomycin 1gm in NS 250ml 1 GM/250 ML BAG IVPB SCH ×2 (05:12→17:50)
[2017-01-03] MEDS: Albuterol-Ipratrop 3 mg / 0.5 (3 ml) UD IH SCH ×6 (05:38→23:48)
[2017-01-03] MEDS: Pantoprazole 40 mg EC Tab PO SCH (06:56)
[2017-01-03] MEDS: Meropenem 1g/NS 100mL IVPB 1 GM/100 ML PIGGYBACK IVPB SCH ×3 (06:56→22:08)
[2017-01-03] MEDS: Sucralfate 1 gm/10 ml Oral Susp UD PO SCH ×2 (06:58→17:54)
[2017-01-03 07:06] LABS: BASO # 0.02 K/mm3 (0.0-2.0); BASO % 0.1 % (0.0-3.0); GRAN # 21.86 (1.4-6.5); GRAN % 95.1 % (50.0-68.0); LYMPH # 0.4 (1.2-3.4); LYMPH % 1.5 % (22.0-35.0); MEAN CELL VOLUME 80.7 fl (80.0-105.0); MEAN CORPUSCULAR HEMOGLOBIN 24.8 pg (25.0-35.0); MEAN CORPUSCULAR HGB CONC 30.7 g/dl (31.0-37.0); MEAN PLATELET VOLUME 8.5 fl (7.0-11.0); MONO # 0.8 (0.1-0.6); MONO % 3.3 % (1.0-6.0); RED CELL DISTRIBUTION WIDTH 18.6 % (11.5-14.5)
[2017-01-03 07:23] LABS: ALB/GLOB RATIO 1.1 (1.1-1.8); ALKALINE PHOSPHATASE 87 U/L (38-126); ALT/SGPT 47 U/L (7-56); AST/SGOT 29 U/L (17-59); BILIRUBIN,TOTAL 0.2 mg/dL (0.2-1.3); BLOOD UREA NITROGEN 18 mg/dL (7-21); CALCIUM 9.2 mg/dL (8.4-10.5); CARBON DIOXIDE 37 mmol/L (21-33); CHLORIDE 96 mmol/L (98-107); GFR AFRICAN-AMERICAN > 60; GLUCOSE,RANDOM 152 mg/dL (70-110); MAGNESIUM 2.1 mg/dL (1.7-2.2); PHOSPHOROUS 3.1 mg/dL (2.5-4.5); POTASSIUM 4.2 mmol/L (3.6-5.0); SODIUM 137 mmol/L (132-148); TOTAL PROTEIN 5.3 g/dL (5.8-8.3)
--- NOTE | 2017-01-03 10:44 | CP.PCM.PN ---
<Mark Li - Last Filed: 01/03/17 18:16> Subjective - Date & Time of Evaluation Date of Evaluation: 01/03/17 Time of Evaluation: 06:38 - Subjective Subjective: Patient was seen and examined at bedside. Per nursing no acute events occurred overnight. Patient reports some shortness of breath and wheezing this morning. He denies any chest pain, lightheadedness, dizziness, abdominal pain, changes in vision, or any other complaints. Objective - Vital Signs/Intake and Output Vital Signs (last 24 hours): Temp Pulse Resp BP Pulse Ox 97.7 F 86 20 135/78 96 01/03/17 06:00 01/03/17 06:00 01/03/17 06:00 01/03/17 06:00 01/02/17 17:03 Intake and Output: 01/03/17 01/03/17 06:59 18:59 Intake Total 810 Balance 810 - Medications Medications: Current Medications Acetaminophen (Tylenol 325mg Tab) 650 mg PO Q6H PRN PRN Reason: Fever >100.4 F Albuterol/Ipratropium (Duoneb 3 Mg/0.5 Mg (3 Ml) Ud) 3 ml IH [id number] [facility] Last Admin: 01/03/17 08:13 Dose: 3 ml Albuterol/Ipratropium (Duoneb 3 Mg/0.5 Mg (3 Ml) Ud) 3 ml IH Q2H PRN PRN Reason: Shortness of Breath Last Admin: 01/02/17 19:03 Dose: 3 ml Alprazolam (Xanax) 0.25 mg PO BID PRN; Protocol PRN Reason: Anxiety Stop: 01/09/17 18:01 Last Admin: 01/02/17 22:47 Dose: 0.25 mg Aspirin (Aspirin Chewable) 81 mg PO DAILY [facility] Doxycycline Hyclate (Doryx) 100 mg PO Q12 [facility] PRN Reason: Protocol Enoxaparin Sodium (Lovenox) 40 mg SC DAILY [facility] PRN Reason: Protocol Last Admin: 01/02/17 18:57 Dose: 40 mg Escitalopram Oxalate (Lexapro) 5 mg PO DAILY [facility] Guaifenesin (Mucinex La) 600 mg PO BID [facility] Last Admin: 01/02/17 18:58 Dose: 600 mg Vancomycin HCl (Vancomycin 1gm) 1 gm in 250 mls @ 167 mls/hr IVPB Q12H [facility] PRN Reason: Protocol Last Admin: 01/03/17 05:12 Dose: 167 mls/hr Meropenem 1g/NS 100mL IVPB (Meropenem 1g/Ns 100ml Ivpb) 1 gm in 100 mls @ 100 mls/hr IVPB Q8 [facility] PRN Reason: Protocol Stop: 01/09/17 22:31 Last Admin: 01/03/17 06:56 Dose: 100 mls/hr Methylprednisolone (Solu-Medrol) 40 mg IVP DAILY [facility] Pantoprazole Sodium (Protonix Ec Tab) 40 mg PO 0600 [facility] Last Admin: 01/03/17 06:56 Dose: 40 mg Pregabalin (Lyrica) 100 mg PO TID [facility] Last Admin: 01/02/17 18:58 Dose: 100 mg Sucralfate (Carafate Oral Susp) 1 gm PO 0600,1600 [facility] Last Admin: 01/03/17 06:58 Dose: 1 gm Tramadol/Acetaminophen (Ultracet 37.5/325 Mg) 1 tab PO Q12H PRN PRN Reason: Pain, moderate (4-7) Last Admin: 01/02/17 22:48 Dose: 1 tab - Labs Labs: 01/03/17 07:02 01/03/17 07:02 PT 11.9 SECONDS (9.4-12.5) 01/02/17 14:40 INR 1.08 (0.93-1.08) 01/02/17 14:40 APTT 32.7 Seconds (25.1-36.5) 01/02/17 14:40 - Head Exam Head Exam: ATRAUMATIC, NORMAL INSPECTION, NORMOCEPHALIC - Eye Exam Eye Exam: EOMI, Normal appearance, PERRL. absent: Nystagmus, Periorbital tenderness, Scleral icterus Pupil Exam: NORMAL ACCOMODATION, PERRL. absent: Irregular, Miosis, Unequal - ENT Exam ENT Exam: Mucous Membranes Moist, Normal Exam. absent: Normal Oropharynx, TM's Normal Bilaterally - Neck Exam Neck Exam: Full ROM, Normal Inspection. absent: Lymphadenopathy, Meningismus, Thyromegaly - Respiratory Exam Respiratory Exam: Decreased Breath Sounds, Wheezes. absent: Accessory Muscle Use - Cardiovascular Exam Cardiovascular Exam: REGULAR RHYTHM, +S1, +S2. absent: Gallop, Rubs - GI/Abdominal Exam GI & Abdominal Exam: Soft, Normal Bowel Sounds. absent: Tenderness, Hyperactive Bowel Sounds, Organomegaly - Extremities Exam Extremities Exam: Normal Inspection. absent: Full ROM, Joint Swelling, Pedal Edema, Tenderness - Back Exam Back Exam: NORMAL INSPECTION. absent: CVA tenderness (L), CVA tenderness (R), paraspinal tenderness - Neurological Exam Neurological Exam: Awake, Oriented x3 - Psychiatric Exam Psychiatric exam: Normal Affect, Normal Mood - Skin Skin Exam: Dry, Intact. absent: Mottled, Urticaria, Vesicles Assessment and Plan - Assessment and Plan (Free Text) Assessment: Patient is a 71 year old male with past medical history of End-Stage COPD, invasive esophageal CA who was recently admitted for COPD exacerbation presents with worsening shortness of breath, cough with fevers. Currently treating for HCAP with lung abscess likely 2/2 aspiration and COPD exacerbation. Plan: 1. Hospital Acquired Pneumonia with Lung Abscess likely 2/2 Aspiration -Tmax 103.1 on arrival, currently afebrile -WBC 26.3 on admission; WBC was 16.9 prior to discharge on Saturday. Today's WBC IS 23. -CXR showing interval increasing diffuse pleural based patchy coalescing opacities -CT chest showing peripheral infiltrate in the right upper lobe c/w pneumonia with a large abscess or cavity (see full report) -Tylenol prn fever, Mucinex BID -Abx: Vancomycin 1gm Q12H, Meropenem 1gm Q8, AND Doryx 100mg Q12 -Influenza negative -Sputum cx on prior admission grew pseudomonas. Pseudomonas sputum uncollected. Will f/u with recs. -Procal ordered .40 Urine legionella ag negative. -UA negative, F/U blood, urine cultures -F/U quantiferon gold -Continue Aspiration precautions -ID on consult, f/u recommendations 2. COPD Exacerbation -Has a history chronic hypoxemic respiratory failure -Recieved loading dose of solu-medrol in the ED -Continue solu-medrol 40mg daily -Continue Duonebs q4H [facility], Duonebs q2H prn SOB -Pulmonology on consult, f/u recommendations 3. Hx of Invasive Esophageal CA -Last round of radiation was 4 weeks ago -Diet: soft foods -Heme/onc on consult, f/u recommendations 4. Back Pain likely musculoskeletal -Tramadol/Acetominophen prn pain -Continue to monitor 5. Hx of anxiety/depression -Continue Xanax prn -Continue Lexapro 6. Anemia likely 2/2 chronic disease -Hgb 8.6. Will closely monitor. Consider anemia workup if values continue to drop. GI/DVT ppx Protonix/Carafate Lovenox 40mg sc daily <Jesika Gómez - Last Filed: 01/04/17 13:26> Objective - Vital Signs/Intake and Output Vital Signs (last 24 hours): Temp Pulse Resp BP Pulse Ox 97.8 F 65 16 126/58 L 98 01/04/17 11:48 01/04/17 11:48 01/04/17 11:48 01/04/17 11:48 01/04/17 06:00 Intake and Output: 01/04/17 01/04/17 06:59 18:59 Intake Total 540 Output Total 3 Balance 537 - Medications Medications: Current Medications Acetaminophen (Tylenol 325mg Tab) 650 mg PO Q6H PRN PRN Reason: Fever >100.4 F Acetylcysteine (Acetylcysteine 20%) 4 ml IH [id number] [facility] Last Admin: 01/04/17 13:05 Dose: 4 ml Albuterol/Ipratropium (Duoneb 3 Mg/0.5 Mg (3 Ml) Ud) 3 ml IH [id number] [facility] Last Admin: 01/04/17 13:05 Dose: 3 ml Albuterol/Ipratropium (Duoneb 3 Mg/0.5 Mg (3 Ml) Ud) 3 ml IH Q2H PRN PRN Reason: Shortness of Breath Last Admin: 01/02/17 19:03 Dose: 3 ml Alprazolam (Xanax) 0.25 mg PO BID PRN; Protocol PRN Reason: Anxiety Stop: 01/09/17 18:01 Last Admin: 01/03/17 22:18 Dose: 0.25 mg Aspirin (Aspirin Chewable) 81 mg PO DAILY [facility] Last Admin: 01/04/17 10:24 Dose: 81 mg Doxycycline Hyclate (Doryx) 100 mg PO Q12 [facility] PRN Reason: Protocol Last Admin: 01/04/17 10:24 Dose: 100 mg Enoxaparin Sodium (Lovenox) 40 mg SC DAILY [facility] PRN Reason: Protocol Last Admin: 01/04/17 10:25 Dose: 40 mg Escitalopram Oxalate (Lexapro) 5 mg PO DAILY [facility] Last Admin: 01/04/17 10:25 Dose: 5 mg Guaifenesin (Mucinex La) 600 mg PO Q6H [facility] Vancomycin HCl (Vancomycin 1gm) 1 gm in 250 mls @ 167 mls/hr IVPB Q12H [facility] PRN Reason: Protocol Last Admin: 01/04/17 05:58 Dose: 167 mls/hr Meropenem 1g/NS 100mL IVPB (Meropenem 1g/Ns 100ml Ivpb) 1 gm in 100 mls @ 100 mls/hr IVPB Q8 [facility] PRN Reason: Protocol Stop: 01/09/17 22:31 Last Admin: 01/04/17 05:57 Dose: 100 mls/hr Methylprednisolone (Solu-Medrol) 40 mg IVP DAILY [facility] Last Admin: 01/04/17 10:26 Dose: 40 mg Pantoprazole Sodium (Protonix Ec Tab) 40 mg PO 0600 [facility] Last Admin: 01/04/17 05:57 Dose: 40 mg Pregabalin (Lyrica) 100 mg PO TID [facility] Last Admin: 01/04/17 10:28 Dose: 100 mg Sucralfate (Carafate Oral Susp) 1 gm PO 0600,1600 [facility] Last Admin: 01/04/17 05:57 Dose: 1 gm Tramadol/Acetaminophen (Ultracet 37.5/325 Mg) 1 tab PO Q12H PRN PRN Reason: Pain, moderate (4-7) Last Admin: 01/03/17 22:18 Dose: 1 tab - Labs Labs: 01/04/17 06:24 01/04/17 06:24 PT 11.9 SECONDS (9.4-12.5) 01/02/17 14:40 INR 1.08 (0.93-1.08) 01/02/17 14:40 APTT 32.7 Seconds (25.1-36.5) 01/02/17 14:40 Attending/Attestation - Attestation I have personally seen and examined this patient.: Yes I have fully participated in the care of the patient.: Yes I have reviewed all pertinent clinical information, including history, physical exam and plan: Yes Notes (Text): 01/04/17 13:24 Patient was seen and examined with medical physics professor. Agreed with resident assessment and plan. 71 yo male with PMH of chronic hypoxic respiratory failure due to end stage COPD, invasive esophageal CA, and melanoma was recently discharged from hospital after treatment of acute COPD exacerbation on tapering dose of prednisone is admitted with fever/chill and worsening cough, found to HCAP Pneumonia /Lung abscess.He is on Respiratory isolation to rule out TB due to Cavity lesion.He is Vancomycin , Meropenem and doxycycline..We will follow up cultures. Patient hypoxia is at base line. Patient is DNR but not DNI. Management plan was discussed in detail with patient Education was provided.
[2017-01-03] MEDS: Enoxaparin 40 mg Syringe SC SCH (10:47)
[2017-01-03] MEDS: guaiFENesin 600 mg ER Tab PO SCH ×2 (10:47→17:56)
[2017-01-03] MEDS: MethylPREDNISolone 40 mg Vial IVP SCH (10:47)
--- NOTE | 2017-01-03 14:03 | CP.PCM.CON ---
History of Present Illness - History of Present Illness History of Present Illness: 71 year old male with PMH of end-stage COPD with history of heavy smoking, espohageal CAD, basal cell CA, S/P appendectomy was recently admitted in [facility] for COPD exacerbation (about 4 days ago) and was discharged with instructions to bring patient back to [facility] if SOB worsens or if he develops fever. When patient got home, he developed more shortness of breath and had subjective fevers. He continued to have cough with phlegm. He denies chest pain, no hemoptysis, no headache or dizziness, no abdominal pain, no diarrhea, no dysuria. The patient is born and raised in the [facility] and lives in [place]. He denies known TB contacts. On this admission, CT chest was done which shows right upper lobe cavitary lesion. Infectious Diseases consult is requested to further evaluate and manage. Review of Systems - Review of Systems All systems: reviewed and no additional remarkable complaints except (as per HPI ) Past Patient History - Infectious Disease Hx of Infectious Diseases: None - Tetanus Immunizations Tetanus Immunization: Unknown - Past Social History Smoking Status: Former Smoker - CARDIAC Hx Cardiac Disorders: No - PULMONARY Hx Chronic Obstructive Pulmonary Disease (COPD): Yes Hx Emphysema: Yes - NEUROLOGICAL Hx Neurological Disorder: No - HEENT Hx HEENT Problems: Yes (reading glasses) Hx Cataracts: Yes (b/l cat sx) Other/Comment: voice hoarse - RENAL Hx Chronic Kidney Disease: No - ENDOCRINE/METABOLIC Hx Endocrine Disorders: No - HEMATOLOGICAL/ONCOLOGICAL Hx Cancer: Yes (dx 07/2016 with esophageal ca) Hx Shingles: Yes (10/2016 r buttock around to r groin) Other/Comment: completed radiation treatments 12/13/16, skin ca basal cell and melanoma removed from back - INTEGUMENTARY Hx Dermatological Problems: Yes 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) Hx Melanoma: Yes (removed from back) Other/Comment: pt had shingles in 10/2015 r buttock around to r groin rash faded , "some" residual pain on lyrica - MUSCULOSKELETAL/RHEUMATOLOGICAL Hx Arthritis: Yes ("all over") - GASTROINTESTINAL Hx Gastrointestinal Disorders: Yes Other/Comment: weightt loss of about 30 lbs over the last 1 1/2 to 2 yrs - GENITOURINARY/GYNECOLOGICAL Hx Genitourinary Disorders: No - PSYCHIATRIC Hx Anxiety: Yes Hx Substance Use: No - SURGICAL HISTORY Hx Appendectomy: Yes (1974) Hx Cardiac Catheterization: Yes (04/22/2013) - ANESTHESIA Hx Anesthesia: Yes Hx Anesthesia Reactions: No Hx Malignant Hyperthermia: No Meds Allergies/Adverse Reactions: Allergies Allergy/AdvReac Type Severity Reaction Status Date / Time No Known Allergies Allergy Verified 01/02/17 14:34 - Medications Medications: Current Medications Acetaminophen (Tylenol 325mg Tab) 650 mg PO Q6H PRN PRN Reason: Fever >100.4 F Albuterol/Ipratropium (Duoneb 3 Mg/0.5 Mg (3 Ml) Ud) 3 ml IH [id number] [facility] Last Admin: 01/02/17 19:03 Dose: 3 ml Albuterol/Ipratropium (Duoneb 3 Mg/0.5 Mg (3 Ml) Ud) 3 ml IH Q2H PRN PRN Reason: Shortness of Breath Last Admin: 01/02/17 19:03 Dose: 3 ml Alprazolam (Xanax) 0.25 mg PO BID PRN; Protocol PRN Reason: Anxiety Stop: 01/09/17 18:01 Aspirin (Aspirin Chewable) 81 mg PO DAILY [facility] Enoxaparin Sodium (Lovenox) 40 mg SC DAILY [facility] PRN Reason: Protocol Last Admin: 01/02/17 18:57 Dose: 40 mg Escitalopram Oxalate (Lexapro) 5 mg PO DAILY [facility] Guaifenesin (Mucinex La) 600 mg PO BID [facility] Last Admin: 01/02/17 18:58 Dose: 600 mg Vancomycin HCl (Vancomycin 1gm) 1 gm in 250 mls @ 167 mls/hr IVPB Q12H [facility] PRN Reason: Protocol Last Admin: 01/02/17 18:58 Dose: 167 mls/hr Piperacillin Sod/Tazobactam Sod (Zosyn 3.375 In Ns 100ml) 100 mls @ 200 mls/hr IVPB Q6H [facility] PRN Reason: Protocol Stop: 01/03/17 04:37 Methylprednisolone (Solu-Medrol) 40 mg IVP DAILY [facility] Pantoprazole Sodium (Protonix Ec Tab) 40 mg PO 0600 [facility] Pregabalin (Lyrica) 100 mg PO TID [facility] Last Admin: 01/02/17 18:58 Dose: 100 mg Sucralfate (Carafate Oral Susp) 1 gm PO 0600,1600 [facility] Tramadol/Acetaminophen (Ultracet 37.5/325 Mg) 1 tab PO Q12H PRN PRN Reason: Pain, moderate (4-7) Physical Exam - Constitutional Appears: Chronically Ill, Other (in some respiratory distress) - Head Exam Head Exam: NORMAL INSPECTION - ENT Exam ENT Exam: Mucous Membranes Moist - Neck Exam Neck exam: Negative for: Lymphadenopathy, Meningismus - Respiratory Exam Respiratory Exam: Decreased Breath Sounds, Wheezes (inspiratory, diffuse) - Cardiovascular Exam Cardiovascular Exam: +S1, +S2 - GI/Abdominal Exam GI & Abdominal Exam: Soft. absent: Tenderness Results - Vital Signs Recent Vital Signs: Last Vital Signs Temp 98 F 01/02/17 17:08 Pulse 109 H 01/02/17 19:05 Resp 24 01/02/17 17:08 BP 138/89 01/02/17 17:08 Pulse Ox 96 01/02/17 17:03 - Labs Result Diagrams: 01/03/17 07:02 01/03/17 07:02 Assessment & Plan - Assessment and Plan (Free Text) Plan: Assessment consider severe sepsis with respiratory failure from lung cavitary lesion R/O lung pyogenic abscess R/O TB end-stage COPD with history of heavy smoking esophageal CAD basal cell CA S/P appendectomy Plan Started patient on Vancomycin, Merrem and Doxycycline pending blood, sputum cx, urine Legionella Ag; reviewed CT chest - may need further procedures (ie. bronchoscopy or IR-guided biopsy of cavitary lesion - awaiting Pulmonary evaluation and recommendations check Sputum AFB x3 - airborne isolation for now will monitor clinically
--- NOTE | 2017-01-03 20:09 | CP.PCM.CON ---
History of Present Illness - History of Present Illness History of Present Illness: Heme/Onc Consult Note for Dr. Ferreira's service HPI: Patient is a 71yo male with past medical history of COPD and esophageal CA who had been previously been recently hospitalized for COPD exacerbation that presented with complaints of worsening shortness of breath associated with fever and pain on coughing. Heme/Onc was consulted for evaluation/treatment of his esophageal cancer. Denies chest pain, palpitations, abdominal pain, nausea, vomiting. 12point ROS as per HPI above otherwise negative PMHx: End stage COPD, Invasive Esophageal CA, Basal Cell CA s/p removal PSHx: Appendectomy, Basal Cell CA removal Social History: Former heavy smoker, quit 10years ago, formerly smoked for > 40yrs; denies alcohol/drug use; lives with his Family History: Non-contributory Allergies: NKDA Past Patient History - Infectious Disease Hx of Infectious Diseases: None - Tetanus Immunizations Tetanus Immunization: Unknown - Past Social History Smoking Status: Former Smoker - CARDIAC Hx Cardiac Disorders: No - PULMONARY Hx Chronic Obstructive Pulmonary Disease (COPD): Yes Hx Emphysema: Yes - NEUROLOGICAL Hx Neurological Disorder: No - HEENT Hx HEENT Problems: Yes (reading glasses) Hx Cataracts: Yes (b/l cat sx) Other/Comment: voice hoarse - RENAL Hx Chronic Kidney Disease: No - ENDOCRINE/METABOLIC Hx Endocrine Disorders: No - HEMATOLOGICAL/ONCOLOGICAL Hx Cancer: Yes (dx 07/2016 with esophageal ca) Hx Shingles: Yes (10/2016 r buttock around to r groin) Other/Comment: completed radiation treatments 12/13/16, skin ca basal cell and melanoma removed from back - INTEGUMENTARY Hx Dermatological Problems: Yes 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) Hx Melanoma: Yes (removed from back) Other/Comment: pt had shingles in 10/2015 r buttock around to r groin rash faded , "some" residual pain on lyrica - MUSCULOSKELETAL/RHEUMATOLOGICAL Hx Arthritis: Yes ("all over") - GASTROINTESTINAL Hx Gastrointestinal Disorders: Yes Other/Comment: weightt loss of about 30 lbs over the last 1 1/2 to 2 yrs - GENITOURINARY/GYNECOLOGICAL Hx Genitourinary Disorders: No - PSYCHIATRIC Hx Anxiety: Yes Hx Substance Use: No - SURGICAL HISTORY Hx Appendectomy: Yes (1974) Hx Cardiac Catheterization: Yes (04/22/2013) - ANESTHESIA Hx Anesthesia: Yes Hx Anesthesia Reactions: No Hx Malignant Hyperthermia: No Meds Allergies/Adverse Reactions: Allergies Allergy/AdvReac Type Severity Reaction Status Date / Time No Known Allergies Allergy Verified 01/02/17 14:34 - Medications Medications: Current Medications Acetaminophen (Tylenol 325mg Tab) 650 mg PO Q6H PRN PRN Reason: Fever >100.4 F Albuterol/Ipratropium (Duoneb 3 Mg/0.5 Mg (3 Ml) Ud) 3 ml [facility]H [id number] [facility] Last Admin: 01/03/17 19:26 Dose: 3 ml Albuterol/Ipratropium (Duoneb 3 Mg/0.5 Mg (3 Ml) Ud) 3 ml IH Q2H PRN PRN Reason: Shortness of Breath Last Admin: 01/02/17 19:03 Dose: 3 ml Alprazolam (Xanax) 0.25 mg PO BID PRN; Protocol PRN Reason: Anxiety Stop: 01/09/17 18:01 Last Admin: 01/02/17 22:47 Dose: 0.25 mg Aspirin (Aspirin Chewable) 81 mg PO DAILY [facility] Last Admin: 01/03/17 10:47 Dose: 81 mg Doxycycline Hyclate (Doryx) 100 mg PO Q12 [facility] PRN Reason: Protocol Last Admin: 01/03/17 10:47 Dose: 100 mg Enoxaparin Sodium (Lovenox) 40 mg SC DAILY [facility] PRN Reason: Protocol Last Admin: 01/03/17 10:47 Dose: 40 mg Escitalopram Oxalate (Lexapro) 5 mg PO DAILY [facility] Last Admin: 01/03/17 10:47 Dose: 5 mg Guaifenesin (Mucinex La) 600 mg PO BID [facility] Last Admin: 01/03/17 17:56 Dose: 600 mg Vancomycin HCl (Vancomycin 1gm) 1 gm in 250 mls @ 167 mls/hr IVPB Q12H [facility] PRN Reason: Protocol Last Admin: 01/03/17 17:50 Dose: 167 mls/hr Meropenem 1g/NS 100mL IVPB (Meropenem 1g/Ns 100ml [facility]) 1 gm in 100 mls @ 100 mls/hr IVPB Q8 [facility] PRN Reason: Protocol Stop: 01/09/17 22:31 Last Admin: 01/03/17 14:09 Dose: 100 mls/hr Methylprednisolone (Solu-Medrol) 40 mg IVP DAILY [facility] Last Admin: 01/03/17 10:47 Dose: 40 mg Pantoprazole Sodium (Protonix Ec Tab) 40 mg PO 0600 [facility] Last Admin: 01/03/17 06:56 Dose: 40 mg Pregabalin (Lyrica) 100 mg PO TID [facility] Last Admin: 01/03/17 17:54 Dose: 100 mg Sucralfate (Carafate Oral Susp) 1 gm PO 0600,1600 [facility] Last Admin: 01/03/17 17:54 Dose: 1 gm Tramadol/Acetaminophen (Ultracet 37.5/325 Mg) 1 tab PO Q12H PRN PRN Reason: Pain, moderate (4-7) Last Admin: 01/02/17 22:48 Dose: 1 tab Physical Exam - Constitutional Appears: Chronically Ill - Head Exam Head Exam: ATRAUMATIC, NORMAL INSPECTION, NORMOCEPHALIC - Eye Exam Eye Exam: EOMI, PERRL - ENT Exam ENT Exam: Mucous Membranes Moist - Respiratory Exam Respiratory Exam: Rhonchi, Wheezes. absent: Clear to Auscultation Bilateral - Cardiovascular Exam Cardiovascular Exam: +S1, +S2. absent: Gallop, Rubs - GI/Abdominal Exam GI & Abdominal Exam: Soft. absent: Distended, Firm, Guarding, Rigid, Tenderness - Neurological Exam Neurological exam: Alert, Oriented x3 - Psychiatric Exam Psychiatric exam: Normal Affect, Normal Mood - Skin Skin Exam: Dry, Intact, Normal Color, Warm Results - Vital Signs Recent Vital Signs: Last Vital Signs Temp 98.1 F 01/03/17 17:57 Pulse 101 H 01/03/17 18:00 Resp 16 01/03/17 17:57 BP 145/65 01/03/17 17:57 Pulse Ox 96 01/02/17 17:03 - Labs Result Diagrams: 01/03/17 07:02 01/03/17 07:02 Labs: Laboratory Results - last 24 hr 01/03/17 01/03/17 01/03/17 07:02 07:02 11:19 WBC 23.0 H RBC 3.47 L Hgb 8.6 L Hct 28.0 L MCV 80.7 MCH 24.8 L MCHC 30.7 L RDW 18.6 H Plt Count 315 MPV 8.5 Gran % 95.1 H Lymph % (Auto) 1.5 L [place] % (Auto) 3.3 Eos % (Auto) 0.0 L Baso % (Auto) 0.1 Gran # 21.86 H Lymph # 0.4 L [place] # 0.8 H Eos # 0.0 Baso # 0.02 Sodium 137 Potassium 4.2 Chloride 96 L Carbon Dioxide 37 H Anion Gap 8 L BUN 18 Creatinine 0.4 L Est GFR ( Amer) > 60 Est GFR (Non-Af Amer) > 60 Random Glucose 152 H Calcium 9.2 Phosphorus 3.1 Magnesium 2.1 Total Bilirubin 0.2 AST 29 ALT 47 Alkaline Phosphatase 87 Total Protein 5.3 L Albumin 2.8 L Globulin 2.5 Albumin/Globulin Ratio 1.1 Ur L.pneumophila Ag Negative Assessment & Plan - Assessment and Plan (Free Text) Plan: 71yo male with history of COPD, Esophageal Ca, Melanoma, basal cell ca presents c/o SOB and fever secondary to RUL Pneumonia in setting of COPD exacerbation -Continue present medical management as per pulmonology/ID/primary medical team with antibiotics, tapering dose steroids, bronchodilators, supplemental oxygen as needed -Patient follows up with Dr. Ferreira as an outpatient for chemotherapy; recently had stopped taking his regimen due to shingles -Follows with a radiation oncologist in [place], [place]; completed course of proton beam radiation therapy -Recommend follow up as an outpatient with Dr. Ferreira -Further recommendations as per Dr. Ferreira Patient seen and case discussed with attending, Dr. Ferreira - Date & Time Date: 01/03/17 Time: 13:10
--- NOTE | 2017-01-03 21:10 | CARD ---
APPROVED REPORT EKG Measurement Heart [id number] [place] [id number] <Conclusion> Sinus tachycardia Otherwise normal ECG
[2017-01-03] MEDS: TraMADol/Apap 37.5/325 mg Tab PO PRN (22:18)
[2017-01-04] MEDS: Albuterol-Ipratrop 3 mg / 0.5 (3 ml) UD IH SCH ×4 (03:30→19:54)
[2017-01-04] MEDS: Acetylcysteine 20% Inhal Soln (4ml) IH SCH ×4 (03:30→19:54)
[2017-01-04] MEDS: Meropenem 1g/NS 100mL IVPB 1 GM/100 ML PIGGYBACK IVPB SCH ×3 (05:57→22:19)
[2017-01-04] MEDS: Pantoprazole 40 mg EC Tab PO SCH (05:57)
[2017-01-04] MEDS: Sucralfate 1 gm/10 ml Oral Susp UD PO SCH ×2 (05:57→17:50)
[2017-01-04] MEDS: Vancomycin 1gm in NS 250ml 1 GM/250 ML BAG IVPB SCH ×2 (05:58→17:51)
[2017-01-04 06:33] LABS: BASO # 0.02 K/mm3 (0.0-2.0); BASO % 0.1 % (0.0-3.0); EOS % 0.1 % (1.5-5.0); GRAN # 17.84 (1.4-6.5); GRAN % 92.6 % (50.0-68.0); HEMATOCRIT 27.3 % (42.0-52.0); LYMPH # 0.4 (1.2-3.4); LYMPH % 2.2 % (22.0-35.0); MEAN CELL VOLUME 81.7 fl (80.0-105.0); MEAN CORPUSCULAR HEMOGLOBIN 24.6 pg (25.0-35.0); MEAN PLATELET VOLUME 8.2 fl (7.0-11.0); RED CELL DISTRIBUTION WIDTH 18.6 % (11.5-14.5); WHITE BLOOD COUNT 19.3 10^3/ul (4.5-11.0)
[2017-01-04 06:55] LABS: ALB/GLOB RATIO 1.1 (1.1-1.8); ALKALINE PHOSPHATASE 83 U/L (38-126); ALT/SGPT 44 U/L (7-56); AST/SGOT 26 U/L (17-59); BILIRUBIN,TOTAL 0.1 mg/dL (0.2-1.3); BLOOD UREA NITROGEN 21 mg/dL (7-21); CALCIUM 9.3 mg/dL (8.4-10.5); CARBON DIOXIDE 38 mmol/L (21-33); CHLORIDE 96 mmol/L (98-107); GFR AFRICAN-AMERICAN > 60; GLUCOSE,RANDOM 93 mg/dL (70-110); MAGNESIUM 1.9 mg/dL (1.7-2.2); PHOSPHOROUS 2.1 mg/dL (2.5-4.5); POTASSIUM 3.9 mmol/L (3.6-5.0); SODIUM 137 mmol/L (132-148); TOTAL PROTEIN 5.2 g/dL (5.8-8.3)
--- NOTE | 2017-01-04 09:29 | CON ---
PULMONARY CONSULTATION DATE: 01/03/2017 REFERRING PHYSICIAN: Dr. Briseida Harvey. REASON FOR CONSULTATION: Chronic obstructive lung disease, lung abscess, pneumonia. HISTORY OF PRESENT ILLNESS: This is a [id number] gentleman with chronic obstructive lung disease, recently diagnosed with esophageal cancer, coronary artery disease, history of basal cell carcinoma, in the last two months, had two to three admissions including admission in [facility]. Most recent admission was at [facility] few days ago, comes back to the hospital with cough, shortness of breath, sputum production, upper back pain, found to have a large pneumonia with a cavity. He was seen by Infectious Diseases, isolated, started on antibiotics, presently feels better. He has no hemoptysis, no hematemesis, no hematuria, no diarrhea reported. PAST MEDICAL HISTORY: Chronic obstructive lung disease, recently diagnosed with esophageal cancer, coronary artery disease, history of basal cell carcinoma, also has a history of melanoma in the past, also has a history of shingles in the past. ALLERGIES: NONE KNOWN. SOCIAL HISTORY: Stopped smoking. Denies any alcohol use. FAMILY HISTORY: No significant cardiopulmonary disease reported. MEDICATIONS: He is on aspirin 81 mg daily, Carafate 1 g twice a day, doxycycline 100 mg twice a day, DuoNeb q. 2 hours p.r.n., DuoNeb q. 4 hours around the clock, Lexapro 5 mg daily, Lovenox 40 mg subcutaneous daily, Lyrica 100 mg three times a day, meropenem 1 g IV q. 8 hours, Mucinex LA 600 mg twice a day, Protonix 40 mg daily, Solu-Medrol 40 mg IV daily, Tylenol p.r.n. basis, Ultracet 37.5/325 one tab q. 12 hours p.r.n., vancomycin 1 g IV q. 12 hours, Xanax 0.25 mg twice a day p.r.n. REVIEW OF SYSTEMS: No headache, no rhinitis. Has an upper back pain, shortness of breath, cough, sputum production. No nausea, no vomiting, no diarrhea. No leg pain or leg swelling. PHYSICAL EXAMINATION: GENERAL: Sitting up in a chair in mild distress. VITAL SIGNS: Temperature is 98, heart rate is 101, respiratory rate is 20, blood pressure 145/65, and pulse ox 96% on nasal cannula. HEENT: Moist mucous membranes. Crowded airway. NECK: Supple. No JVD. LUNGS: Poor airflow. CARDIOPULMONARY: Heart, S1 and S2. ABDOMEN: Soft and nontender. No organomegaly. EXTREMITIES: No edema. NEUROLOGIC: Awake and alert. Follows simple commands. LABORATORY DATA: Shows hemoglobin 8.6, hematocrit 28.0, WBC 23, platelet count 315. INR 1.08, PTT 33. VBG shows pH of 7.43, PCO2 of 56, O2 is 39. Sodium 137, potassium 4.2, chloride 96, bicarbonate 37, BUN 18, creatinine 0.4, glucose 152, calcium 9.2, magnesium 2.1, phosphorus 3.1. AST 29, ALT is 47, alk phos is 87, total protein 5.3, albumin 2.8. Influenza A and B were negative. Urine Legionella antigen negative. Microbiology on 12/27, his sputum had pseudomonas. Presently, blood culture and sputum culture negative from this admission. CAT scan of the chest had extensive COPD, extensive pneumonia of the right lung with cavity formation. IMPRESSION AND PLAN: Probably has aspiration-related pneumonia, in the past had pseudomonas in the sputum. This could be large aspiration. The patient is on anxiolytics and pain medication, which increase the risk of aspiration. Clinically, I doubt it is tuberculosis; to see this extent in infiltrate within days is almost impossible in tuberculosis. If okay with ID, may discontinue isolation. Continue broad-spectrum antibiotics covering will continue steroids, inhaled bronchodilator, send sputum for culture and sensitivity. Add Mucomyst in the nebulizer treatment. We will suggest doing barium swallow esophageal study to assure there is no perforation or there is no aspiration. Gastric prophylaxis, DVT prophylaxis. Needs serial x-rays to see the improvement of the treatment. Thank you, and we will follow with you. Jesika Srivastava MD
[2017-01-04] MEDS: Enoxaparin 40 mg Syringe SC SCH (10:25)
[2017-01-04] MEDS: MethylPREDNISolone 40 mg Vial IVP SCH (10:26)
[2017-01-04] MEDS: guaiFENesin 600 mg ER Tab PO SCH ×4 (10:26→22:19)
--- NOTE | 2017-01-04 11:43 | CP.PCM.PN ---
<Mark Li - Last Filed: 01/04/17 15:52> Subjective - Date & Time of Evaluation Date of Evaluation: 01/04/17 Time of Evaluation: 06:40 - Subjective Subjective: Patient seen and examined at bedside. Per nursing no acute events occurred overnight. The patient is still reporting some shorntess of breath but it's an improvement since yesterday. The patient denies any chest pain, lightheadedness , dizziness, changes in vision, fevers, chills, nausea, vomiting or any other complaints. Objective - Vital Signs/Intake and Output Vital Signs (last 24 hours): Temp Pulse Resp BP Pulse Ox 98.7 F 106 H 20 127/71 98 01/04/17 06:00 01/04/17 10:00 01/04/17 06:00 01/04/17 06:00 01/04/17 06:00 Intake and Output: 01/04/17 01/04/17 06:59 18:59 Intake Total 540 Output Total 3 Balance 537 - Medications Medications: Current Medications Acetaminophen (Tylenol 325mg Tab) 650 mg PO Q6H PRN PRN Reason: Fever >100.4 F Acetylcysteine (Acetylcysteine 20%) 4 ml IH [id number] [facility] Last Admin: 01/04/17 07:49 Dose: 4 ml Albuterol/Ipratropium (Duoneb 3 Mg/0.5 Mg (3 Ml) Ud) 3 ml IH [id number] [facility] Last Admin: 01/04/17 07:49 Dose: 3 ml Albuterol/Ipratropium (Duoneb 3 Mg/0.5 Mg (3 Ml) Ud) 3 ml IH Q2H PRN PRN Reason: Shortness of Breath Last Admin: 01/02/17 19:03 Dose: 3 ml Alprazolam (Xanax) 0.25 mg PO BID PRN; Protocol PRN Reason: Anxiety Stop: 01/09/17 18:01 Last Admin: 01/03/17 22:18 Dose: 0.25 mg Aspirin (Aspirin Chewable) 81 mg PO DAILY [facility] Last Admin: 01/04/17 10:24 Dose: 81 mg Doxycycline Hyclate (Doryx) 100 mg PO Q12 [facility] PRN Reason: Protocol Last Admin: 01/04/17 10:24 Dose: 100 mg Enoxaparin Sodium (Lovenox) 40 mg SC DAILY [facility] PRN Reason: Protocol Last Admin: 01/04/17 10:25 Dose: 40 mg Escitalopram Oxalate (Lexapro) 5 mg PO DAILY [facility] Last Admin: 01/04/17 10:25 Dose: 5 mg Guaifenesin (Mucinex La) 600 mg PO Q6H [facility] Vancomycin HCl (Vancomycin 1gm) 1 gm in 250 mls @ 167 mls/hr IVPB Q12H [facility] PRN Reason: Protocol Last Admin: 01/04/17 05:58 Dose: 167 mls/hr Meropenem 1g/NS 100mL IVPB (Meropenem 1g/Ns 100ml Ivpb) 1 gm in 100 mls @ 100 mls/hr IVPB Q8 [facility] PRN Reason: Protocol Stop: 01/09/17 22:31 Last Admin: 01/04/17 05:57 Dose: 100 mls/hr Methylprednisolone (Solu-Medrol) 40 mg IVP DAILY [facility] Last Admin: 01/04/17 10:26 Dose: 40 mg Pantoprazole Sodium (Protonix Ec Tab) 40 mg PO 0600 [facility] Last Admin: 01/04/17 05:57 Dose: 40 mg Pregabalin (Lyrica) 100 mg PO TID [facility] Last Admin: 01/04/17 10:28 Dose: 100 mg Sucralfate (Carafate Oral Susp) 1 gm PO 0600,1600 [facility] Last Admin: 01/04/17 05:57 Dose: 1 gm Tramadol/Acetaminophen (Ultracet 37.5/325 Mg) 1 tab PO Q12H PRN PRN Reason: Pain, moderate (4-7) Last Admin: 01/03/17 22:18 Dose: 1 tab - Labs Labs: 01/04/17 06:24 01/04/17 06:24 PT 11.9 SECONDS (9.4-12.5) 01/02/17 14:40 INR 1.08 (0.93-1.08) 01/02/17 14:40 APTT 32.7 Seconds (25.1-36.5) 01/02/17 14:40 - Head Exam Head Exam: ATRAUMATIC, NORMAL INSPECTION - Eye Exam Eye Exam: EOMI, Normal appearance, PERRL. absent: Periorbital tenderness Pupil Exam: NORMAL ACCOMODATION, PERRL - ENT Exam ENT Exam: Mucous Membranes Moist, Normal Exam. absent: Normal Oropharynx, TM's Normal Bilaterally - Neck Exam Neck Exam: Normal Inspection - Respiratory Exam Respiratory Exam: Decreased Breath Sounds, Clear to Ausculation Bilateral, NORMAL BREATHING PATTERN. absent: Prolonged Expiratory Phase, Rales, Rhonchi - Cardiovascular Exam Cardiovascular Exam: REGULAR RHYTHM, RRR, +S1, +S2. absent: Gallop, Rubs - GI/Abdominal Exam GI & Abdominal Exam: Soft, Normal Bowel Sounds. absent: Rigid, Hyperactive Bowel Sounds - Extremities Exam Extremities Exam: absent: Joint Swelling, Pedal Edema - Back Exam Back Exam: NORMAL INSPECTION. absent: CVA tenderness (L), CVA tenderness (R), paraspinal tenderness - Neurological Exam Neurological Exam: Alert, Awake, Normal Gait, Oriented x3 - Psychiatric Exam Psychiatric exam: Normal Affect, Normal Mood. absent: Anxious, Depressed - Skin Skin Exam: Dry, Intact Assessment and Plan - Assessment and Plan (Free Text) Assessment: Patient is a 71 year old male with past medical history of End-Stage COPD, invasive esophageal CA who was recently admitted for COPD exacerbation presents with worsening shortness of breath, cough with fevers. Currently treating for HCAP with lung abscess likely 2/2 aspiration and COPD exacerbation. Plan: 1. Hospital Acquired Pneumonia with Lung Abscess likely 2/2 Aspiration -Tmax 103.1 on arrival, currently afebrile -WBC 26.3 on admission; WBC was 16.9 prior to discharge on Saturday. Today's WBC IS 19.3. -CXR showing interval increasing diffuse pleural based patchy coalescing opacities -CT chest showing peripheral infiltrate in the right upper lobe c/w pneumonia with a large abscess or cavity (see full report) -Tylenol prn fever, Mucinex BID -Abx: Vancomycin 1gm Q12H, Meropenem 1gm Q8, AND Doryx 100mg Q12 -Influenza negative -Sputum cx on prior admission grew pseudomonas. Repeat sputum uncollected. Will f/u with recs. -Procal ordered .40 Urine legionella ag negative. -UA negative. Blood cultures (-)x24 hours. F/u with urine cultures -F/U quantiferon gold -Continue Aspiration precautions -ID on consulted and rec's appreciated. 2. COPD Exacerbation -Has a history chronic hypoxemic respiratory failure. Decreased wheezing on exam today. -Recieved loading dose of solu-medrol in the ED -Discontinue IV steroids. Started 40 mg prednisone PO Daily. -Continue Duonebs q4H [facility], Duonebs q2H prn SOB -Pulmonology on consult, f/u recommendations 3. Hx of Invasive Esophageal CA -Last round of radiation was 4 weeks ago -Diet: soft foods -Heme/onc on consult, f/u recommendations 4. Back Pain likely musculoskeletal -Tramadol/Acetominophen prn pain -Continue to monitor 5. Hx of anxiety/depression -Continue Xanax prn -Continue Lexapro 6. Anemia likely 2/2 chronic disease -Hgb 8.2. Will closely monitor. Consider anemia workup if values continue to drop. GI/DVT ppx Protonix/Carafate Lovenox 40mg sc daily <Jesika Gómez - Last Filed: 01/05/17 10:50> Objective - Vital Signs/Intake and Output Vital Signs (last 24 hours): Temp Pulse Resp BP Pulse Ox 97.8 F 102 H 20 146/90 95 01/05/17 06:00 01/05/17 06:00 01/05/17 06:00 01/05/17 10:16 01/05/17 06:00 Intake and Output: 01/05/17 01/05/17 06:59 18:59 Intake Total 1180 Output Total 0 Balance 1180 - Medications Medications: Current Medications Acetaminophen (Tylenol 325mg Tab) 650 mg PO Q6H PRN PRN Reason: Fever >100.4 F Acetylcysteine (Acetylcysteine 20%) 4 ml IH [id number] [facility] Last Admin: 01/05/17 07:36 Dose: 4 ml Albuterol/Ipratropium (Duoneb 3 Mg/0.5 Mg (3 Ml) Ud) 3 ml IH [id number] [facility] Last Admin: 01/05/17 07:36 Dose: 3 ml Albuterol/Ipratropium (Duoneb 3 Mg/0.5 Mg (3 Ml) Ud) 3 ml IH Q2H PRN PRN Reason: Shortness of Breath Last Admin: 01/02/17 19:03 Dose: 3 ml Alprazolam (Xanax) 0.25 mg PO BID PRN; Protocol PRN Reason: Anxiety Stop: 01/09/17 18:01 Last Admin: 01/05/17 00:50 Dose: 0.25 mg Aspirin (Aspirin Chewable) 81 mg PO DAILY [facility] Last Admin: 01/05/17 09:52 Dose: 81 mg Doxycycline Hyclate (Doryx) 100 mg PO Q12 [facility] PRN Reason: Protocol Last Admin: 01/05/17 09:52 Dose: 100 mg Enoxaparin Sodium (Lovenox) 40 mg SC DAILY [facility] PRN Reason: Protocol Last Admin: 01/05/17 09:53 Dose: 40 mg Escitalopram Oxalate (Lexapro) 5 mg PO DAILY [facility] Last Admin: 01/05/17 09:52 Dose: 5 mg Guaifenesin (Mucinex La) 600 mg PO Q6H [facility] Last Admin: 01/05/17 06:00 Dose: 600 mg Vancomycin HCl (Vancomycin 1gm) 1 gm in 250 mls @ 167 mls/hr IVPB Q12H [facility] PRN Reason: Protocol Last Admin: 01/05/17 05:57 Dose: 167 mls/hr Meropenem 1g/NS 100mL IVPB (Meropenem 1g/Ns 100ml Ivpb) 1 gm in 100 mls @ 100 mls/hr IVPB Q8 [facility] PRN Reason: Protocol Stop: 01/09/17 22:31 Last Admin: 01/05/17 05:56 Dose: 100 mls/hr Nystatin (Nystatin Oral Susp) 5 ml PO QID [facility] Last Admin: 01/05/17 09:53 Dose: 5 ml Pantoprazole Sodium (Protonix Ec Tab) 40 mg PO 0600 [facility] Last Admin: 01/04/17 05:57 Dose: 40 mg Prednisone (Prednisone Tab) 40 mg PO DAILY [facility] Last Admin: 01/05/17 09:52 Dose: 40 mg Pregabalin (Lyrica) 100 mg PO TID [facility] Last Admin: 01/05/17 09:52 Dose: 100 mg Sucralfate (Carafate Oral Susp) 1 gm PO 0600,1600 [facility] Last Admin: 01/05/17 06:00 Dose: 1 gm Tamsulosin HCl (Flomax) 0.4 mg PO DAILY [facility] Last Admin: 01/05/17 10:18 Dose: 0.4 mg Tramadol/Acetaminophen (Ultracet 37.5/325 Mg) 1 tab PO Q12H PRN PRN Reason: Pain, moderate (4-7) Last Admin: 01/05/17 10:03 Dose: 1 tab - Labs Labs: 01/05/17 07:20 01/05/17 07:20 PT 11.9 SECONDS (9.4-12.5) 01/02/17 14:40 INR 1.08 (0.93-1.08) 01/02/17 14:40 APTT 32.7 Seconds (25.1-36.5) 01/02/17 14:40 Attending/Attestation - Attestation I have personally seen and examined this patient.: Yes I have fully participated in the care of the patient.: Yes I have reviewed all pertinent clinical information, including history, physical exam and plan: Yes Notes (Text): 01/05/17 10:48 Patient was seen and examined with biomedical engineer. Agreed with resident assessment and plan. 71 year old male with past medical history of End-Stage COPD, invasive esophageal CA who was recently admitted for COPD exacerbation presents with worsening shortness of breath, cough with fevers. Currently treating for HCAP with lung abscess /cavity lesion and COPD exacerbation. Patient is opn respiratory isolation , on IV antibiotics as per ID. Blood cultures are negative for any growth. Management plan was discussed in detail with patient Education was provided.
[2017-01-04 12:05] LABS: RETIC% 0.65 % (0.5-1.5)
[2017-01-04 12:22] LABS: IRON 39 ug/dL (45-180)
--- NOTE | 2017-01-04 12:53 | PN ---
DATE: 01/04/2017 SUBJECTIVE: The patient is seen earlier this morning in room 264, bed 2, comfortable, no fevers and chills. PHYSICAL EXAMINATION: VITAL SIGNS: Temperature is 98, blood pressure is 120/70, and respiratory rate of 18. HEENT: Examination is unremarkable. NECK: Supple. LUNGS: Have decreased breath sounds. HEART: Exam has normal S1 and S2. ABDOMEN: Soft. LABORATORY EXAMINATION: Reveals a white count of 19,300, hemoglobin of 8, platelets of 293. Chemistries reveals a BUN of 21 and creatinine of 0.5. Urinalysis is noted. Serology is negative. Blood cultures are no growth. ASSESSMENT AND PLAN: A 71-year-old male with end-stage chronic obstructive lung disease, heavy smoker, esophageal , coronary artery disease, basal cell cancer, status post appendectomy, recently admitted in [facility] for chronic obstructive pulmonary disease. The patient had a CAT scan, now with severe sepsis with respiratory failure and lung cavitary lesion, pyogenic abscess versus tuberculosis versus malignancy, and end-stage chronic obstructive pulmonary disease with heavy smoking history and esophageal disease. Currently, on meropenem, doxycycline, and vancomycin with negative blood cultures. We will follow closely with you. Kwame Horta MD
[2017-01-04] MEDS ORDERED: Barium Sulfate for Susp 96% w/w 176g Bottle PR ONE (14:20)
--- NOTE | 2017-01-04 16:20 | RAD ---
PROCEDURE: Esophagram HISTORY: perforation,aspiration COMPARISON: TECHNIQUE: Due to the patient's condition and potential for tuberculosis a limited exam was performed at the bedside using portable technique. Thin section barium was administered. The patient has some difficulty swallowing FINDINGS: Lateral and oblique views of the esophagus show no evidence of obstruction or aspiration. There is no obvious perforation. The study is limited IMPRESSION: Lateral and oblique views of the esophagus show no evidence of obstruction or aspiration. There is no obvious perforation. The study is limited
--- NOTE | 2017-01-04 18:29 | CP.PCM.PN ---
Subjective - Date & Time of Evaluation Date of Evaluation: 01/04/17 Time of Evaluation: 18:26 - Subjective Subjective: Heme/Onc progress note for Dr. Ferreira's service Patient seen and examined at bedside. No acute overnight events or new complaints. Iron studies and venofer ordered today given low hemoglobin. Denies chest pain, palpitations, abdominal pain, nausea, vomiting. Objective - Vital Signs/Intake and Output Vital Signs (last 24 hours): Temp Pulse Resp BP Pulse Ox 97.8 F 113 H 16 126/58 L 98 01/04/17 11:48 01/04/17 18:00 01/04/17 11:48 01/04/17 11:48 01/04/17 06:00 Intake and Output: 01/04/17 01/04/17 06:59 18:59 Intake Total 540 240 Output Total 3 600 Balance 537 -360 - Medications Medications: Current Medications Acetaminophen (Tylenol 325mg Tab) 650 mg PO Q6H PRN PRN Reason: Fever >100.4 F Acetylcysteine (Acetylcysteine 20%) 4 ml IH [id number] [facility] Last Admin: 01/04/17 13:05 Dose: 4 ml Albuterol/Ipratropium (Duoneb 3 Mg/0.5 Mg (3 Ml) Ud) 3 ml IH [id number] [facility] Last Admin: 01/04/17 13:05 Dose: 3 ml Albuterol/Ipratropium (Duoneb 3 Mg/0.5 Mg (3 Ml) Ud) 3 ml IH Q2H PRN PRN Reason: Shortness of Breath Last Admin: 01/02/17 19:03 Dose: 3 ml Alprazolam (Xanax) 0.25 mg PO BID PRN; Protocol PRN Reason: Anxiety Stop: 01/09/17 18:01 Last Admin: 01/03/17 22:18 Dose: 0.25 mg Aspirin (Aspirin Chewable) 81 mg PO DAILY [facility] Last Admin: 01/04/17 10:24 Dose: 81 mg Doxycycline Hyclate (Doryx) 100 mg PO Q12 [facility] PRN Reason: Protocol Last Admin: 01/04/17 10:24 Dose: 100 mg Enoxaparin Sodium (Lovenox) 40 mg SC DAILY [facility] PRN Reason: Protocol Last Admin: 01/04/17 10:25 Dose: 40 mg Escitalopram Oxalate (Lexapro) 5 mg PO DAILY [facility] Last Admin: 01/04/17 10:25 Dose: 5 mg Guaifenesin (Mucinex La) 600 mg PO Q6H [facility] Last Admin: 01/04/17 17:51 Dose: 600 mg Vancomycin HCl (Vancomycin 1gm) 1 gm in 250 mls @ 167 mls/hr IVPB Q12H [facility] PRN Reason: Protocol Last Admin: 01/04/17 17:51 Dose: 167 mls/hr Meropenem 1g/NS 100mL IVPB (Meropenem 1g/Ns 100ml Ivpb) 1 gm in 100 mls @ 100 mls/hr IVPB Q8 [facility] PRN Reason: Protocol Stop: 01/09/17 22:31 Last Admin: 01/04/17 14:59 Dose: 100 mls/hr Pantoprazole Sodium (Protonix Ec Tab) 40 mg PO 0600 [facility] Last Admin: 01/04/17 05:57 Dose: 40 mg Prednisone (Prednisone Tab) 40 mg PO DAILY [facility] Pregabalin (Lyrica) 100 mg PO TID [facility] Last Admin: 01/04/17 17:50 Dose: 100 mg Sucralfate (Carafate Oral Susp) 1 gm PO 0600,1600 [facility] Last Admin: 01/04/17 17:50 Dose: 1 gm Tramadol/Acetaminophen (Ultracet 37.5/325 Mg) 1 tab PO Q12H PRN PRN Reason: Pain, moderate (4-7) Last Admin: 01/03/17 22:18 Dose: 1 tab - Labs Labs: 01/04/17 06:24 01/04/17 06:24 PT 11.9 SECONDS (9.4-12.5) 01/02/17 14:40 INR 1.08 (0.93-1.08) 01/02/17 14:40 APTT 32.7 Seconds (25.1-36.5) 01/02/17 14:40 - Constitutional Appears: No Acute Distress - Head Exam Head Exam: ATRAUMATIC, NORMAL INSPECTION, NORMOCEPHALIC - Eye Exam Eye Exam: EOMI, PERRL - Respiratory Exam Respiratory Exam: absent: Rales, Rhonchi, Wheezes - Cardiovascular Exam Cardiovascular Exam: +S1, +S2. absent: Gallop, Rubs, Murmur - GI/Abdominal Exam GI & Abdominal Exam: Soft. absent: Distended, Firm, Guarding, Rigid, Tenderness , Rebound - Extremities Exam Extremities Exam: absent: Pedal Edema - Neurological Exam Neurological Exam: Alert, Awake, Oriented x3 - Psychiatric Exam Psychiatric exam: Normal Affect, Normal Mood - Skin Skin Exam: Dry, Intact, Normal Color, Warm Assessment and Plan - Assessment and Plan (Free Text) Plan: 71yo male with history of COPD, Esophageal Ca, Melanoma, basal cell ca presents c/o SOB and fever secondary to RUL Pneumonia in setting of COPD exacerbation -Continue present medical management as per pulmonology/ID/primary medical team with antibiotics, tapering dose steroids, bronchodilators, supplemental oxygen as needed -Patient with notable low hemoglobin in spite of COPD which normally would present with secondary polycythemia; Iron studies ordered; Ordered dose of venofer and may benefit from aranesp post iron infusion -Follows with a radiation oncologist in [place], [place]; completed course of proton beam radiation therapy -Recommend follow up as an outpatient with Dr. Ferreira -Further recommendations as per Dr. Ferreira Patient seen and case discussed with attending, Dr. Ferreira
[2017-01-04] MEDS: Nystatin 100,000 Units/ml Oral Susp 5 ml UD PO SCH (22:19)
--- NOTE | 2017-01-04 23:05 | CP.PCM.PCO ---
Physician Communication Note - Physician Communication Note Physician Communication Note: see attached note Progress Note - Review of Symptoms Subjective: Pt requests that DNR be removed. States that he was not thinking correctly when making decision initially. Pt is currently AOx3. Pt understands that if DNR is removed all measures will be taken to resuscitate patient.
[2017-01-05] MEDS: Albuterol-Ipratrop 3 mg / 0.5 (3 ml) UD IH SCH ×7 (00:07→23:15)
[2017-01-05] MEDS: TraMADol/Apap 37.5/325 mg Tab PO PRN ×3 (00:51→21:28)
--- NOTE | 2017-01-05 01:47 | PN ---
PULMONARY PROGRESS NOTE DATE: 01/04/2017 REFERRING PHYSICIAN: Briseida Harvey MD SUBJECTIVE: He is lying in the bed, head at 35 degrees. Feels a little better. Still has cough, shortness of breath. No nausea, vomiting, diarrhea. No leg pain or leg swelling. PHYSICAL EXAMINATION GENERAL: In no acute distress. VITAL SIGNS: Temp is 98, heart rate is 66, respiratory rate is 16, blood pressure 121/60, pulse ox 97% on nasal cannula. HEENT: Moist mucous membrane. Crowded airway.. NECK: Supple. No JVD. LUNGS: Poor air flow. HEART: S1 and S2. ABDOMEN: Soft and nontender. No organomegaly. EXTREMITIES: No edema. NEUROLOGICAL: Awake and alert. Follows simple command. MEDICATIONS: He is on Mucomyst 20% inhaled q. 6 hours, aspirin 81 mg daily, Carafate 1 g twice a day, doxycycline 100 mg twice a day, albuterol/Atrovent nebulizer q. 2 hours p.r.n., DuoNeb q. 4 hours round the clock, Lexapro 5 mg daily, Lovenox 40 mg subcutaneous daily, Lyrica 100 mg 3 times a day, meropenem 1 g IV q. 8 hours, Mucinex LA 600 mg q. 6 hours, prednisone 40 mg daily, Protonix 40 mg daily, Tylenol p.r.n. basis, Ultracet 37.5/325 one tab q. 12 hours p.r.n., vancomycin 1 g IV q. 12 hours, Xanax 0.25 mg twice a day p.r.n. LABORATORY DATA: Shows hemoglobin 8.2, hematocrit 27.3, WBC 19.3, platelet count is 293. Sodium 137, potassium 3.9, chloride 96, bicarbonate 38, BUN 21, creatinine 0.5, glucose 93, calcium 9.3, phosphorus 2.1, magnesium 1.9, iron is 39, ferritin is 117. AST 26, ALT 44, alk phos is 83, albumin is 2.7. Vitamin B12 is 729. Microbiology: Urine has some yeasts. Blood culture has been negative. Sputum smear is negative. Cultures are pending. Has esophagogram done today, which shows lateral and oblique views of the esophagus shows no evidence of obstruction or aspiration. There is no obvious perforation. The study is limited. IMPRESSION AND PLAN: Aspiration pneumonia with cavity. In the past, there is a pseudomonas in the sputum. Chronic obstructive lung disease, esophageal cancer, being on radiation therapy. Case discussed with Dr. Ferreira. Esophagogram noted. Most likely, it is aspiration pneumonia. I doubt it is a tuberculosis. The patient has no infiltrate a couple of weeks before this admission, so probability of tuberculosis and cancer is very limited. We will continue IV antibiotics, bronchodilator, pulmonary toilet, followup x-rays. GI consult had been called to assure there is no esophageal perforation or fistula. We will follow with you. Jesika Srivastava MD
[2017-01-05] MEDS: Acetylcysteine 20% Inhal Soln (4ml) IH SCH ×5 (03:52→23:15)
[2017-01-05] MEDS: Meropenem 1g/NS 100mL IVPB 1 GM/100 ML PIGGYBACK IVPB SCH ×3 (05:56→21:31)
[2017-01-05] MEDS: Vancomycin 1gm in NS 250ml 1 GM/250 ML BAG IVPB SCH ×2 (05:57→17:23)
[2017-01-05] MEDS: Sucralfate 1 gm/10 ml Oral Susp UD PO SCH ×2 (06:00→17:23)
[2017-01-05] MEDS: guaiFENesin 600 mg ER Tab PO SCH ×4 (06:00→23:02)
[2017-01-05 07:40] LABS: BASO # 0.04 K/mm3 (0.0-2.0); BASO % 0.3 % (0.0-3.0); EOS % 0.2 % (1.5-5.0); GRAN # 12.86 (1.4-6.5); GRAN % 89.3 % (50.0-68.0); HEMATOCRIT 29.5 % (42.0-52.0); LYMPH # 0.4 (1.2-3.4); LYMPH % 2.5 % (22.0-35.0); MEAN CELL VOLUME 82.4 fl (80.0-105.0); MEAN CORPUSCULAR HEMOGLOBIN 24.6 pg (25.0-35.0); MEAN CORPUSCULAR HGB CONC 29.8 g/dl (31.0-37.0); MEAN PLATELET VOLUME 9.1 fl (7.0-11.0); MONO # 1.1 (0.1-0.6); MONO % 7.7 % (1.0-6.0); RED CELL DISTRIBUTION WIDTH 18.7 % (11.5-14.5); WHITE BLOOD COUNT 14.4 10^3/ul (4.5-11.0)
[2017-01-05 07:56] LABS: ALB/GLOB RATIO 1.2 (1.1-1.8); ALKALINE PHOSPHATASE 80 U/L (38-126); ALT/SGPT 52 U/L (7-56); AST/SGOT 34 U/L (17-59); BILIRUBIN,TOTAL 0.3 mg/dL (0.2-1.3); BLOOD UREA NITROGEN 15 mg/dL (7-21); CALCIUM 9.4 mg/dL (8.4-10.5); CHLORIDE 91 mmol/L (98-107); GFR AFRICAN-AMERICAN > 60; GLUCOSE,RANDOM 79 mg/dL (70-110); MAGNESIUM 1.9 mg/dL (1.7-2.2); PHOSPHOROUS 2.9 mg/dL (2.5-4.5); POTASSIUM 4.4 mmol/L (3.6-5.0); SODIUM 135 mmol/L (132-148); TOTAL PROTEIN 5.6 g/dL (5.8-8.3)
[2017-01-05 08:05] LABS: CARBON DIOXIDE 42 mmol/L (21-33)
--- NOTE | 2017-01-05 09:18 | PN ---
DATE: 01/05/2017 SUBJECTIVE: The patient is in bed in no acute distress, and nontoxic. PHYSICAL EXAMINATION: VITAL SIGNS: The patient's temperature is 97, blood pressure is 140/60, and respiratory rate of 16. HEENT: Examination of HEENT is unremarkable. NECK: Supple. LUNGS: Decreased breath sounds. HEART: Normal S1 and S2. GASTROINTESTINAL: Abdominal examination is soft, and nontender. LABORATORY DATA: Examination reveals the patient's urine has yeast, the AFB smear is negative and blood cultures are negative. Review of orders reveals the patient is on doxycycline p.o., meropenem and vancomycin. One smear negative. Review of microbiology from previous admissions, the patient did have Pseudomonas in the 12/27/2016, sensitive to meropenem, resistant to Cipro. The patient had an esophagus x-ray which shows no obvious perforation, no evidence of obstruction or no evidence of aspiration. ASSESSMENT AND PLAN: He is a 71-year-old male with end-stage chronic obstructive lung disease and a history of Pseudomonas in the sputum earlier this month, heavy smoker, esophageal cancer, coronary artery disease, and basal cell cancer who was admitted with severe sepsis and was found to have a lung cavitary lesion on the right side pyogenic abscess versus malignancy. Tuberculosis is less likely, this patient was born in [facility], he has never been exposed to anyone with tuberculosis, he has never been to outside of the critical access hospital, he has never been in a long term, he is not human immunodeficiency virus positive, tuberculosis will be most unusual in this patient and once smear is negative, recommend Dr. Duran Miller for a CT scan guided aspiration of the abscess for bacteriological diagnosis, we will continue the meropenem and doxycycline for now. Pending Interventional Radiology evaluation. We will discuss with Dr. Srivastava. Kwame Horta MD
[2017-01-05] MEDS: Enoxaparin 40 mg Syringe SC SCH (09:53)
[2017-01-05] MEDS: Nystatin 100,000 Units/ml Oral Susp 5 ml UD PO SCH ×4 (09:53→21:30)
[2017-01-05] MEDS ORDERED: Albuterol-Ipratrop 3 mg / 0.5 (3 ml) UD IH STA (10:19)
--- NOTE | 2017-01-05 10:19 | CP.PCM.PN ---
<Ciro Russo - Last Filed: 01/05/17 10:08> Subjective - Date & Time of Evaluation Date of Evaluation: 01/05/17 Time of Evaluation: 07:15 - Subjective Subjective: Medicine Progress Note: Pt seen and examined at bedside. No Acute events overnight. Pt changed his code status to a full code now. Pt c/o some sob and leg swelling. No other complaints. Pt denies any f/c, palpitations, cp, abd pain, n/v/d. Objective - Vital Signs/Intake and Output Vital Signs (last 24 hours): Temp Pulse Resp BP Pulse Ox 97.8 F 102 H 20 146/90 95 01/05/17 06:00 01/05/17 06:00 01/05/17 06:00 01/05/17 06:00 01/05/17 06:00 Intake and Output: 01/05/17 01/05/17 06:59 18:59 Intake Total 1180 Output Total 0 Balance 1180 - Medications Medications: Current Medications Acetaminophen (Tylenol 325mg Tab) 650 mg PO Q6H PRN PRN Reason: Fever >100.4 F Acetylcysteine (Acetylcysteine 20%) 4 ml IH [id number] [facility] Last Admin: 01/05/17 07:36 Dose: 4 ml Albuterol/Ipratropium (Duoneb 3 Mg/0.5 Mg (3 Ml) Ud) 3 ml IH [id number] [facility] Last Admin: 01/05/17 07:36 Dose: 3 ml Albuterol/Ipratropium (Duoneb 3 Mg/0.5 Mg (3 Ml) Ud) 3 ml IH Q2H PRN PRN Reason: Shortness of Breath Last Admin: 01/02/17 19:03 Dose: 3 ml Alprazolam (Xanax) 0.25 mg PO BID PRN; Protocol PRN Reason: Anxiety Stop: 01/09/17 18:01 Last Admin: 01/05/17 00:50 Dose: 0.25 mg Aspirin (Aspirin Chewable) 81 mg PO DAILY [facility] Last Admin: 01/04/17 10:24 Dose: 81 mg Doxycycline Hyclate (Doryx) 100 mg PO Q12 [facility] PRN Reason: Protocol Last Admin: 01/04/17 22:19 Dose: 100 mg Enoxaparin Sodium (Lovenox) 40 mg SC DAILY [facility] PRN Reason: Protocol Last Admin: 01/04/17 10:25 Dose: 40 mg Escitalopram Oxalate (Lexapro) 5 mg PO DAILY [facility] Last Admin: 01/04/17 10:25 Dose: 5 mg Guaifenesin (Mucinex La) 600 mg PO Q6H [facility] Last Admin: 01/05/17 06:00 Dose: 600 mg Vancomycin HCl (Vancomycin 1gm) 1 gm in 250 mls @ 167 mls/hr IVPB Q12H [facility] PRN Reason: Protocol Last Admin: 01/05/17 05:57 Dose: 167 mls/hr Meropenem 1g/NS 100mL IVPB (Meropenem 1g/Ns 100ml Ivpb) 1 gm in 100 mls @ 100 mls/hr IVPB Q8 [facility] PRN Reason: Protocol Stop: 01/09/17 22:31 Last Admin: 01/05/17 05:56 Dose: 100 mls/hr Nystatin (Nystatin Oral Susp) 5 ml PO QID [facility] Last Admin: 01/04/17 22:19 Dose: 5 ml Pantoprazole Sodium (Protonix Ec Tab) 40 mg PO 0600 [facility] Last Admin: 01/04/17 05:57 Dose: 40 mg Prednisone (Prednisone Tab) 40 mg PO DAILY [facility] Pregabalin (Lyrica) 100 mg PO TID [facility] Last Admin: 01/04/17 17:50 Dose: 100 mg Sucralfate (Carafate Oral Susp) 1 gm PO 0600,1600 [facility] Last Admin: 01/05/17 06:00 Dose: 1 gm Tramadol/Acetaminophen (Ultracet 37.5/325 Mg) 1 tab PO Q12H PRN PRN Reason: Pain, moderate (4-7) Last Admin: 01/05/17 00:51 Dose: 1 tab - Labs Labs: 01/05/17 07:20 01/05/17 07:20 PT 11.9 SECONDS (9.4-12.5) 01/02/17 14:40 INR 1.08 (0.93-1.08) 01/02/17 14:40 APTT 32.7 Seconds (25.1-36.5) 01/02/17 14:40 - Constitutional Appears: No Acute Distress - Head Exam Head Exam: ATRAUMATIC, NORMOCEPHALIC - Eye Exam Eye Exam: EOMI, PERRL - ENT Exam ENT Exam: Mucous Membranes Moist - Respiratory Exam Respiratory Exam: Clear to Ausculation Bilateral. absent: Rales, Rhonchi, Wheezes - Cardiovascular Exam Cardiovascular Exam: REGULAR RHYTHM, +S1, +S2 - GI/Abdominal Exam GI & Abdominal Exam: Soft. absent: Tenderness - Extremities Exam Extremities Exam: Pedal Edema. absent: Calf Tenderness Additional comments: 2+ - Neurological Exam Neurological Exam: Alert, Awake, Oriented x3 - Psychiatric Exam Psychiatric exam: Normal Affect, Normal Mood Assessment and Plan - Assessment and Plan (Free Text) Assessment: Patient is a 71 year old male with past medical history of End-Stage COPD, invasive esophageal CA who was recently admitted for COPD exacerbation presents with worsening shortness of breath, cough 9with known pseudomonas in sputum) with fevers. Currently treating for HCAP with lung abscess likely 2/2 aspiration and COPD exacerbation. Will r/o TB - AFB smear x 1 negative. Plan: 1. Hospital Acquired Pneumonia with Lung Abscess likely 2/2 Aspiration r/o TB unlikely - Afebrile; WBC is 19.3--> 14.4 -AFB smear x 1 negative - will obtain 2 more samples -CXR showing interval increasing diffuse pleural based patchy coalescing opacities -CT chest showing peripheral infiltrate in the right upper lobe c/w pneumonia with a large abscess or cavity (see full report) -Tylenol prn fever, Mucinex BID -ID consulted and rec- Meropenem 1gm Q8, AND Doryx 100mg Q12 d/c Vancomycin 1gm Q12H. Rec CT guided bx of lung abscess -Influenza negative; Urine legionella ag negative -f/u septic work up -Procal ordered .40 - F/u with urine cultures - Yeast -F/U quantiferon gold -Continue Aspiration precautions 2. COPD Exacerbation -Cont prednisone 40 mg PO Daily. -Continue Duonebs q4H [facility], Duonebs q2H prn SOB -Pulmonology on consult, f/u recommendations 3. Hx of Invasive Esophageal CA -Last round of radiation was 4 weeks ago -Diet: soft foods -Heme/onc on consulted - Started on Venofer -Esophageal xray- no obstruction or aspiration 4. Back Pain likely musculoskeletal - Pain control -Continue to monitor 5. Hx of anxiety/depression -Continue Xanax prn -Continue Lexapro 6. Anemia likely 2/2 chronic disease -Hgb 8.8. - Heme consulted and started Venofer GI/DVT ppx Protonix/Carafate Lovenox 40mg sc daily Pt and plan was seen, reviewed and discussed in detail with Dr Gómez. <Jesika Gómez - Last Filed: 01/05/17 10:52> Objective - Vital Signs/Intake and Output Vital Signs (last 24 hours): Temp Pulse Resp BP Pulse Ox 97.8 F 102 H 20 146/90 95 01/05/17 06:00 01/05/17 06:00 01/05/17 06:00 01/05/17 10:16 01/05/17 06:00 Intake and Output: 01/05/17 01/05/17 06:59 18:59 Intake Total 1180 Output Total 0 Balance 1180 - Medications Medications: Current Medications Acetaminophen (Tylenol 325mg Tab) 650 mg PO Q6H PRN PRN Reason: Fever >100.4 F Acetylcysteine (Acetylcysteine 20%) 4 ml IH [id number] [facility] Last Admin: 01/05/17 07:36 Dose: 4 ml Albuterol/Ipratropium (Duoneb 3 Mg/0.5 Mg (3 Ml) Ud) 3 ml IH [id number] [facility] Last Admin: 01/05/17 07:36 Dose: 3 ml Albuterol/Ipratropium (Duoneb 3 Mg/0.5 Mg (3 Ml) Ud) 3 ml IH Q2H PRN PRN Reason: Shortness of Breath Last Admin: 01/02/17 19:03 Dose: 3 ml Alprazolam (Xanax) 0.25 mg PO BID PRN; Protocol PRN Reason: Anxiety Stop: 01/09/17 18:01 Last Admin: 01/05/17 00:50 Dose: 0.25 mg Aspirin (Aspirin Chewable) 81 mg PO DAILY [facility] Last Admin: 01/05/17 09:52 Dose: 81 mg Doxycycline Hyclate (Doryx) 100 mg PO Q12 [facility] PRN Reason: Protocol Last Admin: 01/05/17 09:52 Dose: 100 mg Enoxaparin Sodium (Lovenox) 40 mg SC DAILY [facility] PRN Reason: Protocol Last Admin: 01/05/17 09:53 Dose: 40 mg Escitalopram Oxalate (Lexapro) 5 mg PO DAILY [facility] Last Admin: 01/05/17 09:52 Dose: 5 mg Guaifenesin (Mucinex La) 600 mg PO Q6H [facility] Last Admin: 01/05/17 06:00 Dose: 600 mg Vancomycin HCl (Vancomycin 1gm) 1 gm in 250 mls @ 167 mls/hr IVPB Q12H [facility] PRN Reason: Protocol Last Admin: 01/05/17 05:57 Dose: 167 mls/hr Meropenem 1g/NS 100mL IVPB (Meropenem 1g/Ns 100ml Ivpb) 1 gm in 100 mls @ 100 mls/hr IVPB Q8 [facility] PRN Reason: Protocol Stop: 01/09/17 22:31 Last Admin: 01/05/17 05:56 Dose: 100 mls/hr Nystatin (Nystatin Oral Susp) 5 ml PO QID [facility] Last Admin: 01/05/17 09:53 Dose: 5 ml Pantoprazole Sodium (Protonix Ec Tab) 40 mg PO 0600 [facility] Last Admin: 01/04/17 05:57 Dose: 40 mg Prednisone (Prednisone Tab) 40 mg PO DAILY [facility] Last Admin: 01/05/17 09:52 Dose: 40 mg Pregabalin (Lyrica) 100 mg PO TID [facility] Last Admin: 01/05/17 09:52 Dose: 100 mg Sucralfate (Carafate Oral Susp) 1 gm PO 0600,1600 [facility] Last Admin: 01/05/17 06:00 Dose: 1 gm Tamsulosin HCl (Flomax) 0.4 mg PO DAILY [facility] Last Admin: 01/05/17 10:18 Dose: 0.4 mg Tramadol/Acetaminophen (Ultracet 37.5/325 Mg) 1 tab PO Q12H PRN PRN Reason: Pain, moderate (4-7) Last Admin: 01/05/17 10:03 Dose: 1 tab - Labs Labs: 01/05/17 07:20 01/05/17 07:20 PT 11.9 SECONDS (9.4-12.5) 01/02/17 14:40 INR 1.08 (0.93-1.08) 01/02/17 14:40 APTT 32.7 Seconds (25.1-36.5) 01/02/17 14:40 Attending/Attestation - Attestation I have personally seen and examined this patient.: Yes I have fully participated in the care of the patient.: Yes I have reviewed all pertinent clinical information, including history, physical exam and plan: Yes Notes (Text): 01/05/17 10:51 Patient was seen and examined with medical surgical tech. Agreed with resident assessment and plan. 71 year old male with past medical history of End-Stage COPD, invasive esophageal CA who was recently admitted for COPD exacerbation presents with worsening shortness of breath, cough with fevers. Currently treating for HCAP with lung abscess /cavity lesion and COPD exacerbation. Patient is on respiratory isolation, awaiting 3 negative AFB , on IV antibiotics as per ID. Blood cultures are negative for any growth. Management plan was discussed in detail with patient Education was provided.
[2017-01-05 18:19] LABS: CA 19-9 100 U/mL (0-37)
--- NOTE | 2017-01-05 20:09 | PN ---
PULMONARY PROGRESS NOTE DATE: 01/05/2017 REFERRING PHYSICIAN: Dr. Gómez. SUBJECTIVE: He is lying in the bed, head at 45 degrees. is at bedside. Night was unremarkable. Feels better. Decreased cough and shortness of breath. No nausea, no vomiting, no diarrhea. No leg pain or leg swelling. PHYSICAL EXAMINATION GENERAL: In no acute distress. VITAL SIGNS: Temp is 98, heart rate is 110, respiratory rate is 18, blood pressure 118/70, pulse ox 95% on nasal cannula. HEENT: Moist mucous membrane. No ulcer or thrush noted. NECK: Supple. No JVD. LUNGS: Poor air flow with scattered rhonchi. HEART: S1 and S2. ABDOMEN: Soft and nontender. No organomegaly. EXTREMITIES: No edema. NEUROLOGICAL: Awake and alert. Follows simple command. MEDICATIONS: He is on Mucomyst 20% inhaled q. 6 hours, aspirin 81 mg daily, Carafate 1 g twice a day, doxycycline 100 mg twice a day, albuterol/Atrovent nebulizer q. 2 hours p.r.n. and q. 4 hours round the clock, Flomax 0.4 mg daily, Lexapro 5 mg daily, Lovenox 40 mg daily, Lyrica 100 mg 3 times a day, meropenem 1 g IV q. 8 hours, Mucinex LA 600 mg q. 6 hours, prednisone 40 mg daily, Protonix 40 mg daily, Tylenol p.r.n. basis, Ultracet 1 tab q. 12 hours, vancomycin 1 g IV q. 12 hours, Xanax 0.25 mg twice a day p.r.n. LABORATORY DATA: Shows hemoglobin 8.8, hematocrit 29.5, WBC 14.4, platelet count is 314. Sodium 135, potassium 4.5, chloride 91, bicarbonate 42, BUN 15, creatinine 0.5, glucose 79, calcium 9.4, phosphorus 2.9, magnesium 1.9, iron is 39, ferritin is 117. AST 34, ALT 52, alk phos is 80. Carcinoembryonic antigen is 3.4. Microbiology: Sputum culture has Gram-negative angel. ID is pending. Previous stay had pseudomonas. ASSESSMENT AND PLAN: Most likely he aspirated with a large pneumonia, he has a cavity. In the past there was pseudomonas in the sputum, chronic obstructive lung disease, history of esophageal cancer and been on radiation therapy. I had a long discussion with the patient's at bedside. All the questions answered. Showed her x-ray from 12/23 and compared it to 12/25, from almost no infiltrate to massive infiltrate in 8 days. So I doubt tuberculosis will do that and also malignancy will do that. I think this is aspiration pneumonia. Continue antibiotics as per the Infectious Disease, continue p.r.n. inhaled bronchodilator, taper down prednisone slowly, incentive spirometer, bed to chair, physical therapy. Followup x-ray showed stability of infiltrate. The patient should be taken off from isolation. Three specimens already given for AFB, one is already negative. Thank you and we will follow with you. Jesika Srivastava MD
[2017-01-06] MEDS: Acetylcysteine 20% Inhal Soln (4ml) IH SCH ×5 (03:52→23:15)
[2017-01-06] MEDS: Albuterol-Ipratrop 3 mg / 0.5 (3 ml) UD IH SCH ×6 (03:52→23:14)
[2017-01-06] MEDS: Sucralfate 1 gm/10 ml Oral Susp UD PO SCH ×2 (05:38→16:42)
[2017-01-06] MEDS: Pantoprazole 40 mg EC Tab PO SCH (05:39)
[2017-01-06] MEDS: guaiFENesin 600 mg ER Tab PO SCH ×4 (05:39→22:41)
[2017-01-06] MEDS: Vancomycin 1gm in NS 250ml 1 GM/250 ML BAG IVPB SCH (05:40)
[2017-01-06] MEDS: Meropenem 1g/NS 100mL IVPB 1 GM/100 ML PIGGYBACK IVPB SCH ×3 (05:40→22:41)
[2017-01-06 07:37] LABS: ALB/GLOB RATIO 1.2 (1.1-1.8); ALKALINE PHOSPHATASE 75 U/L (38-126); ALT/SGPT 67 U/L (7-56); AST/SGOT 39 U/L (17-59); BILIRUBIN,TOTAL 0.4 mg/dL (0.2-1.3); BLOOD UREA NITROGEN 15 mg/dL (7-21); CALCIUM 9.5 mg/dL (8.4-10.5); CHLORIDE 89 mmol/L (95-110); GFR AFRICAN-AMERICAN > 60; GLUCOSE,RANDOM 82 mg/dL (70-110); MAGNESIUM 1.8 mg/dL (1.7-2.2); POTASSIUM 4.4 mmol/L (3.6-5.0); SODIUM 133 mmol/L (132-148); TOTAL PROTEIN 5.4 g/dL (5.8-8.3)
[2017-01-06 07:52] LABS: BASO # 0.03 K/mm3 (0.0-2.0); BASO % 0.2 % (0.0-3.0); CARBON DIOXIDE 40 mmol/L (21-33); EOS # 0.1 (0.0-0.7); EOS % 0.4 % (1.5-5.0); GRAN # 11.61 (1.4-6.5); GRAN % 87.6 % (50.0-68.0); HEMATOCRIT 29.2 % (42.0-52.0); LYMPH # 0.4 (1.2-3.4); LYMPH % 3.1 % (22.0-35.0); MEAN CELL VOLUME 82.5 fl (80.0-105.0); MEAN CORPUSCULAR HEMOGLOBIN 25.1 pg (25.0-35.0); MEAN CORPUSCULAR HGB CONC 30.5 g/dl (31.0-37.0); MEAN PLATELET VOLUME 8.8 fl (7.0-11.0); MONO # 1.2 (0.1-0.6); MONO % 8.7 % (1.0-6.0); PLATELET COUNT 271 10^3/uL (120.0-450.0); RED CELL DISTRIBUTION WIDTH 18.7 % (11.5-14.5); WHITE BLOOD COUNT 13.3 10^3/ul (4.5-11.0)
[2017-01-06 08:32] LABS: BAND 1 % (0-2); NEUTROPHIL 84 % (50.0-70.0)
[2017-01-06 08:33] LABS: ANISOCYTOSIS SLIGHT; HYPOCHROMIA SLIGHT; PLATELET ESTIMATE NORMAL (NORMAL)
[2017-01-06] MEDS: Nystatin 100,000 Units/ml Oral Susp 5 ml UD PO SCH ×4 (09:03→22:41)
[2017-01-06] MEDS: Enoxaparin 40 mg Syringe SC SCH (09:03)
--- NOTE | 2017-01-06 09:44 | CON ---
DATE: This patient was seen and evaluated earlier. Discussed with the patient's who was at bedside. Appears slightly more comfortable. Patient is not using any dentures now, on soft diet. PHYSICAL EXAMINATION; VITAL SIGNS: On examination, afebrile. Blood pressure 118/70, respiration is 18, O2 saturation 95%, heart rate 110. HEENT: Atraumatic, anicteric. NECK: Supple. HEART: S1 and S2 heard. LUNGS: Bilateral air entry present. Few scattered rhonchi present. ABDOMEN: Soft. No tenderness. EXTREMITIES: No edema. No cyanosis. NEUROLOGIC: Alert and oriented, moves all the extremities. LABORATORY DATA: Hemoglobin 8.8, hematocrit 29.5, WBC 14.4, platelets 314. Chemistry, BUN 15, creatinine 0.5. Transferrin saturation only 18%. The patient had a CA 19-9, which was elevated at and CEA 3.4. IMPRESSION: This is a 71-year-old patient with end-stage chronic obstructive pulmonary disease, who was waiting for lung transplant, was found to have invasive esophageal carcinoma on routine evaluation for pretransplant workup and followup. Patient did complete the initial radiation therapy. Admitted with worsening of the shortness of breath and cough, found to have a community-acquired pneumonia, large with cavitary lesion. Presently on a respiratory isolation, waiting for AFB test results, one negative. The patient denies having difficulty in swallowing, able to tolerate the soft diet. Patient was edentulous and was using dentures, now he is not presently using the dentures as he lost weight, the dentures is not fitting, but he is able to chew well with gums and swallow it. I did have a detailed discussion with the patient's . I did explain to her clearly the importance of chewing the food and eating. The risk of food impaction and aspiration was clearly explained, they understood. The esophagogram done earlier was reviewed. It was a limited study done at bedside with limited contrast. When the patient is off the isolation, after optimization, would need a proper esophagogram. In view of the large pneumonia and poor respiratory status, would avoid anesthesia and endoscopic evaluation at the present time. Patient also has anemia, which is more of iron deficiency pattern. Patient would benefit from prophylaxis, on Protonix. Patient is presently on prednisone. In view of the anemia and patient on prednisone and aspirin, it is reasonable to continue the Protonix along with sucralfate. The patient is also on Lovenox DVT prophylaxis dose and needs a close monitoring of the hemoglobin and hematocrit. Thank you very much for allowing me to participate in the care of this patient. Maribell Gardner MD
--- NOTE | 2017-01-06 10:48 | CP.PCM.PN ---
<Ciro Russo - Last Filed: 01/06/17 10:50> Subjective - Date & Time of Evaluation Date of Evaluation: 01/06/17 Time of Evaluation: 08:00 - Subjective Subjective: Medicine Progress Note: Pt seen and examined at bedside. No Acute events overnight. Pt states that his sob and leg swelling has improved but complains of cough. Pt denies any f/c, palpitations, cp, abd pain, n/v/d. Objective - Vital Signs/Intake and Output Vital Signs (last 24 hours): Temp Pulse Resp BP Pulse Ox 97.8 F 93 H 18 136/80 96 01/06/17 06:00 01/06/17 06:00 01/06/17 06:00 01/06/17 06:00 01/06/17 06:00 Intake and Output: 01/06/17 01/06/17 06:59 18:59 Intake Total 1530 Output Total 800 Balance 730 - Medications Medications: Current Medications Acetaminophen (Tylenol 325mg Tab) 650 mg PO Q6H PRN PRN Reason: Fever >100.4 F Acetylcysteine (Acetylcysteine 20%) 4 ml IH [id number] [facility] Last Admin: 01/06/17 07:30 Dose: 4 ml Albuterol/Ipratropium (Duoneb 3 Mg/0.5 Mg (3 Ml) Ud) 3 ml IH [id number] [facility] Last Admin: 01/06/17 07:30 Dose: 3 ml Albuterol/Ipratropium (Duoneb 3 Mg/0.5 Mg (3 Ml) Ud) 3 ml IH Q2H PRN PRN Reason: Shortness of Breath Last Admin: 01/02/17 19:03 Dose: 3 ml Alprazolam (Xanax) 0.25 mg PO BID PRN; Protocol PRN Reason: Anxiety Stop: 01/09/17 18:01 Last Admin: 01/05/17 21:27 Dose: 0.25 mg Aspirin (Aspirin Chewable) 81 mg PO DAILY [facility] Last Admin: 01/06/17 09:03 Dose: 81 mg Enoxaparin Sodium (Lovenox) 40 mg SC DAILY [facility] PRN Reason: Protocol Last Admin: 01/06/17 09:03 Dose: 40 mg Escitalopram Oxalate (Lexapro) 5 mg PO DAILY [facility] Last Admin: 01/06/17 09:03 Dose: 5 mg Guaifenesin (Mucinex La) 600 mg PO Q6H [facility] Last Admin: 01/06/17 05:39 Dose: 600 mg Meropenem 1g/NS 100mL IVPB (Meropenem 1g/Ns 100ml Ivpb) 1 gm in 100 mls @ 100 mls/hr IVPB Q8 [facility] PRN Reason: Protocol Stop: 01/09/17 22:31 Last Admin: 01/06/17 05:40 Dose: 100 mls/hr Nystatin (Nystatin Oral Susp) 5 ml PO QID [facility] Last Admin: 01/06/17 09:03 Dose: 5 ml Pantoprazole Sodium (Protonix Ec Tab) 40 mg PO 0600 [facility] Last Admin: 01/06/17 05:39 Dose: 40 mg Prednisone (Prednisone Tab) 30 mg PO DAILY [facility] Pregabalin (Lyrica) 100 mg PO TID [facility] Last Admin: 01/06/17 09:03 Dose: 100 mg Sucralfate (Carafate Oral Susp) 1 gm PO 0600,1600 [facility] Last Admin: 01/06/17 05:38 Dose: 1 gm Tamsulosin HCl (Flomax) 0.4 mg PO DAILY [facility] Last Admin: 01/06/17 09:03 Dose: 0.4 mg Tramadol/Acetaminophen (Ultracet 37.5/325 Mg) 1 tab PO Q12H PRN PRN Reason: Pain, moderate (4-7) Last Admin: 01/05/17 21:28 Dose: 1 tab - Labs Labs: 01/06/17 07:00 01/06/17 07:00 PT 11.9 SECONDS (9.4-12.5) 01/02/17 14:40 INR 1.08 (0.93-1.08) 01/02/17 14:40 APTT 32.7 Seconds (25.1-36.5) 01/02/17 14:40 - Constitutional Appears: No Acute Distress - Head Exam Head Exam: ATRAUMATIC, NORMOCEPHALIC - Eye Exam Eye Exam: EOMI, PERRL - ENT Exam ENT Exam: Mucous Membranes Moist - Neck Exam Neck Exam: Full ROM, Normal Inspection - Respiratory Exam Respiratory Exam: Clear to Ausculation Bilateral. absent: Rales, Wheezes - Cardiovascular Exam Cardiovascular Exam: REGULAR RHYTHM, RRR, +S1, +S2 - GI/Abdominal Exam GI & Abdominal Exam: Soft. absent: Tenderness - Extremities Exam Extremities Exam: absent: Calf Tenderness, Pedal Edema - Neurological Exam Neurological Exam: Alert, Awake, Oriented x3 - Psychiatric Exam Psychiatric exam: Normal Affect, Normal Mood - Skin Skin Exam: Dry, Intact, Warm Assessment and Plan - Assessment and Plan (Free Text) Assessment: Patient is a 71 year old male with past medical history of End-Stage COPD, invasive esophageal CA who was recently admitted for COPD exacerbation presents with worsening shortness of breath, cough 9with known pseudomonas in sputum) with fevers. Currently treating for HCAP with lung abscess likely 2/2 aspiration and COPD exacerbation. Will r/o TB - AFB smear x 1 negative. Plan: 1. Hospital Acquired Pneumonia with Lung Abscess likely 2/2 Aspiration r/o TB unlikely - Afebrile; WBC is 19.3--> 14.4--> 13.3 -AFB smear x 1 negative - will obtain 2 more samples -CXR showing interval increasing diffuse pleural based patchy coalescing opacities -CT chest showing peripheral infiltrate in the right upper lobe c/w pneumonia with a large abscess or cavity (see full report) -Tylenol prn fever, Mucinex BID -ID consulted and rec- Meropenem 1gm Q8, AND Doryx 100mg Q12, Vancomycin 1gm Q12H. Rec CT guided bx of lung abscess -Pulm consulted - lung abscess is likely due to aspiration and unlikely TB, D/c isolation -Influenza negative; Urine legionella ag negative -f/u septic work up -Procal ordered .40 - F/u with urine cultures - Yeast -F/U quantiferon gold -Continue Aspiration precautions - lasix 20mg IVP x 1 for peripheral edema 2. COPD Exacerbation -Taper prednisone 40 mg to 30mg daily -Continue Duonebs q4H [facility], Duonebs q2H prn SOB 3. Hx of Invasive Esophageal CA -Last round of radiation was 4 weeks ago -Diet: soft foods -Heme/onc on consulted - Started on Venofer -Esophageal xray- no obstruction or aspiration 4. Back Pain likely musculoskeletal - Pain control -Continue to monitor 5. Hx of anxiety/depression -Continue Xanax prn -Continue Lexapro 6. Anemia likely 2/2 chronic disease -Hgb 8.9 - Heme consulted and started Venofer 7. BPH: - started flomax daily GI/DVT ppx Protonix/Carafate Lovenox 40mg sc daily Pt and plan was seen, reviewed and discussed in detail with Dr Gómez. <Jesika Gómez - Last Filed: 01/06/17 12:25> Objective - Vital Signs/Intake and Output Vital Signs (last 24 hours): Temp Pulse Resp BP Pulse Ox 97.8 F 93 H 18 136/80 96 01/06/17 06:00 01/06/17 06:00 01/06/17 06:00 01/06/17 10:36 01/06/17 06:00 Intake and Output: 01/06/17 01/06/17 06:59 18:59 Intake Total 1530 Output Total 800 Balance 730 - Medications Medications: Current Medications Acetaminophen (Tylenol 325mg Tab) 650 mg PO Q6H PRN PRN Reason: Fever >100.4 F Acetylcysteine (Acetylcysteine 20%) 4 ml IH [id number] [facility] Last Admin: 01/06/17 07:30 Dose: 4 ml Albuterol/Ipratropium (Duoneb 3 Mg/0.5 Mg (3 Ml) Ud) 3 ml IH [id number] [facility] Last Admin: 01/06/17 11:21 Dose: 3 ml Albuterol/Ipratropium (Duoneb 3 Mg/0.5 Mg (3 Ml) Ud) 3 ml IH Q2H PRN PRN Reason: Shortness of Breath Last Admin: 01/02/17 19:03 Dose: 3 ml Alprazolam (Xanax) 0.25 mg PO BID PRN; Protocol PRN Reason: Anxiety Stop: 01/09/17 18:01 Last Admin: 01/05/17 21:27 Dose: 0.25 mg Aspirin (Aspirin Chewable) 81 mg PO DAILY [facility] Last Admin: 01/06/17 09:03 Dose: 81 mg Enoxaparin Sodium (Lovenox) 40 mg SC DAILY [facility] PRN Reason: Protocol Last Admin: 01/06/17 09:03 Dose: 40 mg Escitalopram Oxalate (Lexapro) 5 mg PO DAILY [facility] Last Admin: 01/06/17 09:03 Dose: 5 mg Guaifenesin (Mucinex La) 600 mg PO Q6H [facility] Last Admin: 01/06/17 10:35 Dose: 600 mg Meropenem 1g/NS 100mL IVPB (Meropenem 1g/Ns 100ml Ivpb) 1 gm in 100 mls @ 100 mls/hr IVPB Q8 [facility] PRN Reason: Protocol Stop: 01/09/17 22:31 Last Admin: 01/06/17 05:40 Dose: 100 mls/hr Nystatin (Nystatin Oral Susp) 5 ml PO QID [facility] Last Admin: 01/06/17 09:03 Dose: 5 ml Pantoprazole Sodium (Protonix Ec Tab) 40 mg PO 0600 [facility] Last Admin: 01/06/17 05:39 Dose: 40 mg Prednisone (Prednisone Tab) 30 mg PO DAILY [facility] Pregabalin (Lyrica) 100 mg PO TID [facility] Last Admin: 01/06/17 09:03 Dose: 100 mg Sucralfate (Carafate Oral Susp) 1 gm PO 0600,1600 [facility] Last Admin: 01/06/17 05:38 Dose: 1 gm Tamsulosin HCl (Flomax) 0.4 mg PO DAILY [facility] Last Admin: 01/06/17 09:03 Dose: 0.4 mg Tramadol/Acetaminophen (Ultracet 37.5/325 Mg) 1 tab PO Q12H PRN PRN Reason: Pain, moderate (4-7) Last Admin: 01/05/17 21:28 Dose: 1 tab - Labs Labs: 01/06/17 07:00 01/06/17 07:00 PT 11.9 SECONDS (9.4-12.5) 01/02/17 14:40 INR 1.08 (0.93-1.08) 01/02/17 14:40 APTT 32.7 Seconds (25.1-36.5) 01/02/17 14:40 Attending/Attestation - Attestation I have personally seen and examined this patient.: Yes I have fully participated in the care of the patient.: Yes I have reviewed all pertinent clinical information, including history, physical exam and plan: Yes Notes (Text): 01/06/17 12:22 Patient was seen and examined with senior medical director. 71 year old male with past medical history of End-Stage COPD, invasive esophageal CA who was recently admitted for COPD exacerbation presents with worsening shortness of breath, cough with fevers. Currently treating for HCAP with lung abscess /cavity lesion and COPD exacerbation. Patient is off respiratory isolation, Sputum cultures growing Pseudomonas ,he is now on Meropenemas per ID Patient case was discussed with Pulmonary and Oncology.He is clinically improving, recent imaging was negative for any infiltrate, We will hold of biopsy of infilterate. Hemoglobin is stable, we will monitor. Management plan was discussed in detail with patient Education was provided.
--- NOTE | 2017-01-06 11:08 | PN ---
DATE: 01/06/2017 SUBJECTIVE: The patient is in bed, in no acute distress, nontoxic. OBJECTIVE: VITAL SIGNS: On exam, temperature is 97, blood pressure is 130/80, respiratory rate of 18 and heart rate of 93. EXAMINATION OF HEENT: Unremarkable. NECK: Supple. LUNGS: Decreased breath sounds. HEART EXAM: Normal S1 and S2. ABDOMINAL EXAMINATION: Soft. LABORATORY EXAMINATION: Reveals a white count is 13,300; hemoglobin of 8; platelets of 271 and 87% granulocytosis. Chemistries reveal the patient has a BUN of 15, creatinine of 0.5 and ALT is 67. Carcinoembryonic antigen is 3.2. Urinalysis is noted and indeterminate QuantiFERON. Urine legionella is negative. Influenza is negative. Microbiology reveals pseudomonas in the sputum, sensitive to meropenem. AFB: No AFB is seen. Blood cultures are negative. Review of the microbiology reveals the patient has pseudomonas in the sputum. ASSESSMENT AND PLAN: A 71-year-old male was seen earlier today in #264, bed #2, end-stage chronic obstructive lung disease, history of pseudomonas in the sputum early this month, heavy smoker with esophageal cancer, coronary artery disease and basal cell cancer, who was admitted with severe sepsis and with pseudomonas lung abscess, must rule out underlying malignancy. Acid-fast bacillus smear is negative, this would be very unusual for tuberculosis. The patient is born is [facility] and never had [place]. He is not human immunodeficiency virus positive. He has never been in detention. We will discontinue the tuberculous isolation, discontinue the vancomycin and doxycycline. Continue treating with meropenem as pseudomonas lung abscess with repeat imaging, unfortunately no p.o. options available, it is intermediate to Cipro and should have CAT scans followed up with resolution if the image concerns still about esophageal cancer, fistula to the pleura, if possible to minimize the prednisone. We will discontinue the isolation. Dr. Srivastava's note is reviewed. The patient did have esophagram with no evidence of obstruction or aspiration, however, is a limited study. Kwame Horta MD
[2017-01-06] MEDS: Albuterol-Ipratrop 3 mg / 0.5 (3 ml) UD IH PRN (19:34)
--- NOTE | 2017-01-06 23:50 | CON ---
This patient was seen and evaluated earlier today. REASON FOR CONSULTATION: Esophageal CA. HISTORY OF PRESENT ILLNESS: This 71-year-old patient with end-stage COPD was found to have positive PET scan and also some thickening on the distal esophageal area during preop evaluation for the transplant evaluation for the lung transplant in [facility], found to have esophageal cancer and the patient has completed the chemotherapy. The patient was admitted with shortness of breath. Chest x-rays showed some cavitary lesion, pneumonia and the patient is on isolation to rule out tuberculosis. The patient did have the esophagogram done as a limited study at the bedside. PAST MEDICAL HISTORY: Other past medical history is as significant as above, history of coronary artery disease, basal cell carcinoma, melanoma. SOCIAL HISTORY: Ex-smoker, denies alcohol use. FAMILY HISTORY: Noncontributory. REVIEW OF SYSTEMS: Positive as above, other systems reviewed. The patient does have some shortness of breath, exertional dyspnea. PHYSICAL EXAMINATION: GENERAL: The patient is lying on the bed, not in acute distress. VITAL SIGNS: Afebrile, blood pressure is 145/65. NECK: Supple. HEART: S1 and S2 heard. LUNGS: Bilateral air entry present. Reduced airflow generally, bilaterally. ABDOMEN: Soft. There is no mass palpable. No tenderness. EXTREMITIES: No edema. No cyanosis. NEUROLOGICALLY: Alert and oriented. Moves all the extremities. LABORATORY DATA: Hemoglobin is 8.2, hematocrit 27.3, WBC 19.3 and platelets 293. Chemistry is essentially unremarkable. IMPRESSION: This is a 71-year-old patient with chronic obstructive pulmonary disease, esophageal carcinoma recently diagnosed, now presented with pneumonia, shortness of breath, cavitary lesion on isolation. The esophagogram was reviewed, it is a very limited study. The patient's oncologist has mentioned to me the patient is a high-risk patient for anesthesia. The patient is presently tolerating the diet. The patient is edentulous, not utilizing any dentures, this can cause problems. Wound recommend to continue the proton pump inhibitor, continue the antibiotics as per the infectious disease and continue to follow up with Dr. Srivastava, road packer operator. We will continue to closely follow up her care. Continue the proton pump inhibitor and the present management regimen. Once the patient is optimized, we will consider repeating the esophagogram. Thank you very much for allowing us to participate in the care of the patient. Maribell Gardner MD
[2017-01-07] MEDS: Acetylcysteine 20% Inhal Soln (4ml) IH SCH ×3 (01:15→19:31)
--- NOTE | 2017-01-07 01:18 | PN ---
PULMONARY PROGRESS NOTE DATE: 01/06/2017 REFERRING PHYSICIAN: Jesika Gómez MD SUBJECTIVE: He is out of bed to chair, is at bedside. Night was unremarkable. Feels sleepy and tired in the morning time. Afternoon, is out of bed. Still short of breath. Has some cough. Not much sputum production. No nausea. No vomiting. No diarrhea. No leg pain or leg swelling. OBJECTIVE: GENERAL: In no acute distress. VITAL SIGNS: Temperature is 98, heart rate is 110, respiratory rate is 20, blood pressure 112/69, pulse ox 96% on 2 liters nasal cannula. HEENT: Moist mucous membrane. Crowded airway. NECK: Supple. No JVD. HEART: S1 and S2. LUNGS: Poor air flow with few rhonchi. ABDOMEN: Soft and nontender. No organomegaly. EXTREMITIES: No edema. NEUROLOGIC: Awake and alert. Follows simple command. MEDICATIONS: He is on Mucomyst 20% inhaled q. 6 hours, aspirin 81 mg daily, Carafate 1 g twice a day, DuoNeb q. 2 hours p.r.n. and q. 4 hours round the clock, Flomax 0.4 mg daily, Lexapro 5 mg daily, Lovenox 40 mg daily, Lyrica 100 mg 3 times a day, meropenem 1 g q. 8 hours, Mucinex LA 600 mg q. 6 hours, nystatin 5 mL q.i.d., prednisone 20 mg daily, Protonix 40 mg daily, Tylenol p.r.n., Ultracet 37.5/325 1 tab q. 12 hours, Xanax 0.25 mg twice a day. LABORATORY DATA: Shows hemoglobin 8.9, hematocrit 29.2, WBC 13.3, platelet count is 271. Sodium 133, potassium 4.4, chloride 89, bicarbonate 40, BUN is 15, creatinine 0.5, glucose 82, calcium is 9.5, phosphorus 3.0, magnesium 1.8, iron is 39. AST 39, ALT 67, alkaline phosphatase is 75. Albumin is 2.9. Carcinoembryonic antigen 3.4. *------*TB test shows indeterminate possibility of TB. Sputum AFB x2 been negative. IMPRESSION AND PLAN: Aspiration pneumonia with cavity. In the past, there is a Pseudomonas in the sputum, obstructive lung disease, esophageal cancer, been on radiation therapy. Old CT report reviewed from [facility] suggested of right middle lobe some atelectasis. At that time, PET scan showed no metabolic active lesion in that area. Case discussed with Dr. Jesika Gómez in detail today. At this point, cannot biopsy anything, it has pneumonia, cannot isolate any lesion at this time. Clinically, I will suggest we continue antibiotics 3 times, aspiration pneumonia, Gastroenterology consult, possible EGD to show there is no fistula, once the infiltrate is better, can reevaluate the patient, of course need followup CT to assure the stability of infiltrate. Other issue, the patient does have a snoring, daytime sleepy and tired, using accessory muscle, he can benefit with BiPAP noninvasive ventilation at nighttime. I will write down for BiPAP 12/21 on 30% oxygen while sleeping with a nasal mask, though do not use full face mask. The patient is claustrophobic, let us see how he does. We will suggest getting physical therapy. Thank you and we will follow with you. Jesika Srivastava MD
--- NOTE | 2017-01-07 03:05 | PN ---
DATE: 01/06/2017 SUBJECTIVE: This patient is now off the isolation. PHYSICAL EXAMINATION: VITAL SIGNS: Temperature is 98.7, blood pressure 106/57, respirations are 19, and pulse rate of 114. HEENT: Atraumatic and anicteric. NECK: Supple. HEART: S1 and S2 heard. LUNGS: Bilateral air entry present. ABDOMEN: Soft. There is no tenderness. EXTREMITIES: No cyanosis. No clubbing. LABORATORY DATA: Hemoglobin 8.9, hematocrit 29.2, WBC 13.3, and platelets 271. ALT is 67, otherwise unremarkable. IMPRESSION: He is a 71-year-old patient with end-stage renal disease, history of esophageal carcinoma status post radiation treatment completion, admitted with pneumonia and cavitary lesion. He was on isolation, sputum recently isolation was discontinued. The concern is anemia. The patient has a low saturation of 18, borderline low, which is normocytic anemia. We will follow up the hemoglobin and hematocrit continually. Esophageal carcinoma, status post radiation therapy. The esophagram done earlier was limited study. RECOMMENDATIONS: 1. Follow up of the hemoglobin and hematocrit. 2. Continue the Protonix. The patient is also on steroid and aspirin, high risk for bleeding. 3. The patient also on Carafate. We would consider repeating the barium swallow esophagogram. 4. The patient was clearly told about eating a soft diet or a pureed diet, as a risk of aspiration is higher, he is not chewing the food well. The patient does not use dentures now at the present time. Thank you very much for allowing us to participate in the care of the patient. Maribell Gardner MD
[2017-01-07] MEDS: Albuterol-Ipratrop 3 mg / 0.5 (3 ml) UD IH SCH ×4 (04:53→19:30)
[2017-01-07] MEDS: Sucralfate 1 gm/10 ml Oral Susp UD PO SCH ×2 (06:07→17:01)
[2017-01-07] MEDS: guaiFENesin 600 mg ER Tab PO SCH ×4 (06:08→22:16)
[2017-01-07] MEDS: Meropenem 1g/NS 100mL IVPB 1 GM/100 ML PIGGYBACK IVPB SCH ×3 (06:08→22:15)
[2017-01-07] MEDS: Pantoprazole 40 mg EC Tab PO SCH (06:08)
[2017-01-07 06:30] LABS: BASO # 0.03 K/mm3 (0.0-2.0); BASO % 0.2 % (0.0-3.0); EOS % 0.2 % (1.5-5.0); GRAN # 14.89 (1.4-6.5); GRAN % 88.8 % (50.0-68.0); HEMATOCRIT 29.3 % (42.0-52.0); LYMPH # 0.4 (1.2-3.4); LYMPH % 2.6 % (22.0-35.0); MEAN CELL VOLUME 82.3 fl (80.0-105.0); MEAN CORPUSCULAR HEMOGLOBIN 24.7 pg (25.0-35.0); MEAN PLATELET VOLUME 8.3 fl (7.0-11.0); MONO # 1.4 (0.1-0.6); MONO % 8.2 % (1.0-6.0); RED CELL DISTRIBUTION WIDTH 18.6 % (11.5-14.5); WHITE BLOOD COUNT 16.8 10^3/ul (4.5-11.0)
[2017-01-07 07:05] LABS: ALKALINE PHOSPHATASE 78 U/L (38-126); ALT/SGPT 55 U/L (7-56); AST/SGOT 47 U/L (17-59); BILIRUBIN,TOTAL 0.3 mg/dL (0.2-1.3); BLOOD UREA NITROGEN 18 mg/dL (7-21); CALCIUM 9.3 mg/dL (8.4-10.5); CHLORIDE 91 mmol/L (98-107); GFR AFRICAN-AMERICAN > 60; GLUCOSE,RANDOM 85 mg/dL (70-110); MAGNESIUM 1.9 mg/dL (1.7-2.2); PHOSPHOROUS 2.6 mg/dL (2.5-4.5); POTASSIUM 4.1 mmol/L (3.6-5.0); SODIUM 136 mmol/L (132-148); TOTAL PROTEIN 5.5 g/dL (5.8-8.3)
[2017-01-07 07:16] LABS: CARBON DIOXIDE 40 mmol/L (21-33)
[2017-01-07] MEDS: Nystatin 100,000 Units/ml Oral Susp 5 ml UD PO SCH ×4 (09:28→22:16)
[2017-01-07] MEDS: Enoxaparin 40 mg Syringe SC SCH (09:29)
--- NOTE | 2017-01-07 11:04 | RAD ---
HISTORY: SOB, assess for poss fluid overload COMPARISON: 01/02/2017 FINDINGS: LUNGS: There is a persistent cavity in the right lung apex that is unchanged. The remaining infiltrates seen in the periphery of the right lung has resolved. PLEURA: No significant pleural effusion identified, no pneumothorax apparent. CARDIOVASCULAR: Normal. OSSEOUS STRUCTURES: No significant abnormalities. VISUALIZED UPPER ABDOMEN: Normal. OTHER FINDINGS: None. IMPRESSION: There is a persistent cavity in the right lung apex that is unchanged. The remaining infiltrates seen in the periphery of the right lung has resolved.
--- NOTE | 2017-01-07 11:56 | CP.PCM.PN ---
<Sajan Currie - Last Filed: 01/07/17 12:00> Subjective - Date & Time of Evaluation Date of Evaluation: 01/07/17 Time of Evaluation: 07:30 - Subjective Subjective: IM Progress Note for Hospitalist Service Patient seen and examined at bedside. No acute events reported overnight, this AM complaining of shortness of breath 2/2 difficulty breathing. Also reports increased difficulty urinating, but denies pain/burning with urination. Denies chest pain, nausea, emesis, dysphagia, sensation of food/liquid stuck in throat while swallowing. Objective - Vital Signs/Intake and Output Vital Signs (last 24 hours): Temp Pulse Resp BP Pulse Ox 97.9 F 97 H 19 110/64 98 01/07/17 06:00 01/07/17 10:00 01/07/17 06:00 01/07/17 06:00 01/07/17 06:00 Intake and Output: 01/07/17 01/07/17 06:59 18:59 Intake Total 120 Output Total 700 Balance -580 - Medications Medications: Current Medications Acetaminophen (Tylenol 325mg Tab) 650 mg PO Q6H PRN PRN Reason: Fever >100.4 F Acetylcysteine (Acetylcysteine 20%) 4 ml IH [id number] [facility] Last Admin: 01/07/17 07:29 Dose: 4 ml Albuterol/Ipratropium (Duoneb 3 Mg/0.5 Mg (3 Ml) Ud) 3 ml IH [id number] [facility] Last Admin: 01/07/17 11:12 Dose: 3 ml Albuterol/Ipratropium (Duoneb 3 Mg/0.5 Mg (3 Ml) Ud) 3 ml IH Q2H PRN PRN Reason: Shortness of Breath Last Admin: 01/06/17 19:34 Dose: 3 ml Alprazolam (Xanax) 0.25 mg PO BID PRN; Protocol PRN Reason: Anxiety Stop: 01/09/17 18:01 Last Admin: 01/06/17 22:44 Dose: 0.25 mg Aspirin (Aspirin Chewable) 81 mg PO DAILY [facility] Last Admin: 01/07/17 09:27 Dose: 81 mg Enoxaparin Sodium (Lovenox) 40 mg SC DAILY [facility] PRN Reason: Protocol Last Admin: 01/07/17 09:29 Dose: 40 mg Escitalopram Oxalate (Lexapro) 5 mg PO DAILY [facility] Last Admin: 01/07/17 09:27 Dose: 5 mg Guaifenesin (Mucinex La) 600 mg PO Q6H [facility] Last Admin: 01/07/17 06:08 Dose: 600 mg Meropenem 1g/NS 100mL IVPB (Meropenem 1g/Ns 100ml Ivpb) 1 gm in 100 mls @ 100 mls/hr IVPB Q8 [facility] PRN Reason: Protocol Stop: 01/09/17 22:31 Last Admin: 01/07/17 06:08 Dose: 100 mls/hr Nystatin (Nystatin Oral Susp) 5 ml PO QID [facility] Last Admin: 01/07/17 09:28 Dose: 5 ml Pantoprazole Sodium (Protonix Ec Tab) 40 mg PO 0600 [facility] Last Admin: 01/07/17 06:08 Dose: 40 mg Prednisone (Prednisone Tab) 30 mg PO DAILY [facility] Last Admin: 01/07/17 09:28 Dose: 30 mg Pregabalin (Lyrica) 100 mg PO TID [facility] Last Admin: 01/07/17 09:27 Dose: 100 mg Sucralfate (Carafate Oral Susp) 1 gm PO 0600,1600 [facility] Last Admin: 01/07/17 06:07 Dose: 1 gm Tamsulosin HCl (Flomax) 0.4 mg PO DAILY [facility] Last Admin: 01/07/17 09:27 Dose: 0.4 mg Tramadol/Acetaminophen (Ultracet 37.5/325 Mg) 1 tab PO Q12H PRN PRN Reason: Pain, moderate (4-7) Last Admin: 01/05/17 21:28 Dose: 1 tab - Labs Labs: 01/07/17 06:20 01/07/17 06:20 PT 11.9 SECONDS (9.4-12.5) 01/02/17 14:40 INR 1.08 (0.93-1.08) 01/02/17 14:40 APTT 32.7 Seconds (25.1-36.5) 01/02/17 14:40 - Constitutional Appears: Non-toxic, No Acute Distress, Chronically Ill - Head Exam Head Exam: ATRAUMATIC, NORMAL INSPECTION, NORMOCEPHALIC - Eye Exam Eye Exam: EOMI, Normal appearance. absent: Conjunctival injection, Scleral icterus Pupil Exam: absent: Irregular, Unequal - ENT Exam ENT Exam: Mucous Membranes Moist - Neck Exam Neck Exam: Full ROM Additional comments: Trachea midline - Respiratory Exam Respiratory Exam: Decreased Breath Sounds (moderate-severely decreased breath sounds in all goff), Prolonged Expiratory Phase. absent: Accessory Muscle Use , Chest Wall Tenderness, Clear to Ausculation Bilateral, Rales, Rhonchi, Wheezes , Respiratory Distress, Stridor - Cardiovascular Exam Cardiovascular Exam: REGULAR RHYTHM, RRR, +S1, +S2. absent: Bradycardia, Tachycardia, Irregular Rhythm, JVD, +S4 - GI/Abdominal Exam GI & Abdominal Exam: Soft, Normal Bowel Sounds. absent: Distended, Firm, Rigid , Tenderness - Extremities Exam Extremities Exam: Full ROM, Pedal Edema (+1-2 pedal edema in bilateral LE, extending from feet to mid-shaw). absent: Calf Tenderness, Joint Swelling - Neurological Exam Neurological Exam: Alert, Awake, Oriented x3 Neuro motor strength exam: Left Upper Extremity: 5, Right Upper Extremity: 5, Left Lower Extremity: 5, Right Lower Extremity: 5 - Psychiatric Exam Psychiatric exam: Normal Affect, Normal Mood. absent: Anxious, Depressed - Skin Skin Exam: Dry, Intact, Normal Color, Warm Assessment and Plan - Assessment and Plan (Free Text) Assessment: This is a 71 yo M with PMH of End-Stage COPD, invasive esophageal CA s /p radiation and chemo, and melanoma s/p resection who was recently admitted for COPD exacerbation presents with worsening shortness of breath, cough (with known pseudomonas in sputum) with fevers. Currently treating for HCAP with lung abscess likely 2/2 aspiration and COPD exacerbation. AFB smears negative x2, not TB as per ID, now off precautions. Plan: 1) HCAP with Lung Abscess -likely 2/2 Aspiration given eating without dentures, eating inappropriate diet ; not TB as per ID -Afebrile; leukocytosis increased to 16.8 from 13.2 -AFB smear x2 negative, pending 1 more samples -CXR today shows resolution of remaining infiltrates at R lung peripheral, but persistent cavity in the right lung apex that is unchanged. -CT chest showing peripheral infiltrate in the right upper lobe c/w pneumonia with a large abscess or cavity (see full report) -Tylenol prn fever, Mucinex BID -ID consulted, appreciate all recs; Merrem 1gm Q8, Rec CT guided bx of lung abscess, unlikely TB so precautions discontinued, d/c Doxy and Vanco -Pulm consulted - lung abscess is likely due to aspiration and unlikely TB, continue tx for Psuedomonas, no biopsy given PNA and pt clinical condition, need EGD to r/o fistula -Influenza negative; Urine legionella ag negative -Procal 0.40 -Urine culture notable for Yeast -Continue Aspiration precautions -Concern for fluid overload given Shortness of breath and complaint of worsening urination output, CXR obtained to r/o fluid overload, doesn't appear overloaded, no need for diuresis at this time 2) COPD Exacerbation -Taper prednisone, currently at 30mg daily -Continue Duonebs q4H [facility], Duonebs q2H prn SOB 3) Hx of Invasive Esophageal CA -Last round of radiation was 4 weeks ago -Diet: soft foods -Heme/onc on consulted - Started on Venofer -Esophagram obtained- no obstruction or aspiration, but limited study; as per GI , needs non-portable Esophagram with contrast, not Barium, obtainable now that no longer on precautions for possible TB 4) Back Pain -likely musculoskeletal -Pain control, PT/OT -Continue to monitor 5) Hx of anxiety/depression -Continue Xanax prn -Continue Lexapro 6) Anemia likely 2/2 chronic disease -Hgb 8.9 -Heme consulted and started Venofer 7) BPH: -started flomax daily -Still having urinary difficulties despite flomax, will increase to 0.8mg daily ; if no additional benefit, will consider starting Finasteride Dispo: Telemetry, can be downgraded to Remote-telemetry FEN: Soft diet, no IVF Access: Peripheral IV Consults: Pulm, GI, ID Ppx: Protonix for GI, Lovenox for DVT Patient seen, reviewed, and discussed with attending, Dr. Pina. <Frankie Pina - Last Filed: 01/07/17 12:42> Objective - Vital Signs/Intake and Output Vital Signs (last 24 hours): Temp Pulse Resp BP Pulse Ox 97.9 F 97 H 19 110/64 98 01/07/17 06:00 01/07/17 10:00 01/07/17 06:00 01/07/17 06:00 01/07/17 06:00 Intake and Output: 01/07/17 01/07/17 06:59 18:59 Intake Total 120 Output Total 700 Balance -580 - Medications Medications: Current Medications Acetaminophen (Tylenol 325mg Tab) 650 mg PO Q6H PRN PRN Reason: Fever >100.4 F Acetylcysteine (Acetylcysteine 20%) 4 ml IH [id number] [facility] Last Admin: 01/07/17 07:29 Dose: 4 ml Albuterol/Ipratropium (Duoneb 3 Mg/0.5 Mg (3 Ml) Ud) 3 ml IH [id number] [facility] Last Admin: 01/07/17 11:12 Dose: 3 ml Albuterol/Ipratropium (Duoneb 3 Mg/0.5 Mg (3 Ml) Ud) 3 ml IH Q2H PRN PRN Reason: Shortness of Breath Last Admin: 01/06/17 19:34 Dose: 3 ml Alprazolam (Xanax) 0.25 mg PO BID PRN; Protocol PRN Reason: Anxiety Stop: 01/09/17 18:01 Last Admin: 01/06/17 22:44 Dose: 0.25 mg Aspirin (Aspirin Chewable) 81 mg PO DAILY [facility] Last Admin: 01/07/17 09:27 Dose: 81 mg Enoxaparin Sodium (Lovenox) 40 mg SC DAILY [facility] PRN Reason: Protocol Last Admin: 01/07/17 09:29 Dose: 40 mg Escitalopram Oxalate (Lexapro) 5 mg PO DAILY [facility] Last Admin: 01/07/17 09:27 Dose: 5 mg Guaifenesin (Mucinex La) 600 mg PO Q6H [facility] Last Admin: 01/07/17 06:08 Dose: 600 mg Meropenem 1g/NS 100mL IVPB (Meropenem 1g/Ns 100ml Ivpb) 1 gm in 100 mls @ 100 mls/hr IVPB Q8 [facility] PRN Reason: Protocol Stop: 01/09/17 22:31 Last Admin: 01/07/17 06:08 Dose: 100 mls/hr Nystatin (Nystatin Oral Susp) 5 ml PO QID [facility] Last Admin: 01/07/17 09:28 Dose: 5 ml Pantoprazole Sodium (Protonix Ec Tab) 40 mg PO 0600 [facility] Last Admin: 01/07/17 06:08 Dose: 40 mg Prednisone (Prednisone Tab) 30 mg PO DAILY [facility] Last Admin: 01/07/17 09:28 Dose: 30 mg Pregabalin (Lyrica) 100 mg PO TID [facility] Last Admin: 01/07/17 09:27 Dose: 100 mg Sucralfate (Carafate Oral Susp) 1 gm PO 0600,1600 [facility] Last Admin: 01/07/17 06:07 Dose: 1 gm Tamsulosin HCl (Flomax) 0.4 mg PO DAILY [facility] Last Admin: 01/07/17 09:27 Dose: 0.4 mg Tramadol/Acetaminophen (Ultracet 37.5/325 Mg) 1 tab PO Q12H PRN PRN Reason: Pain, moderate (4-7) Last Admin: 01/05/17 21:28 Dose: 1 tab - Labs Labs: 01/07/17 06:20 01/07/17 06:20 PT 11.9 SECONDS (9.4-12.5) 01/02/17 14:40 INR 1.08 (0.93-1.08) 01/02/17 14:40 APTT 32.7 Seconds (25.1-36.5) 01/02/17 14:40 Attending/Attestation - Attestation I have personally seen and examined this patient.: Yes I have fully participated in the care of the patient.: Yes I have reviewed all pertinent clinical information, including history, physical exam and plan: Yes Notes (Text): 01/07/17 12:35 71 year old male with past medical history of COPD, esophageal cancer s/p chemotherapy and radiation who presented with worsening shortness of breath. He is currently being treated with iv antibiotics for HCAP with lung abscess, possibly secondary to aspiration. He is also on duonebs and tapering steroids. ID and pulmonary are following the patient. AFBs have been negative. Sputum culture grew Pseudomonas Aueriginosa. GI is folllowing as well. Esophagram study was limited and patient may need repeat study as per GI. Continue with soft diet. Continue with aspiration precautions. Frankie Pina MD Hospitalist.
--- NOTE | 2017-01-07 13:24 | CP.PCM.PN ---
<Kendra,Kovil V - Last Filed: 01/07/17 23:14> Objective - Vital Signs/Intake and Output Vital Signs (last 24 hours): Temp Pulse Resp BP Pulse Ox 99 F 97 H 20 105/67 98 01/07/17 18:00 01/07/17 18:00 01/07/17 18:00 01/07/17 18:00 01/07/17 06:00 Intake and Output: 01/07/17 01/08/17 18:59 06:59 Intake Total 720 Output Total 400 Balance 320 - Medications Medications: Current Medications Acetaminophen (Tylenol 325mg Tab) 650 mg PO Q6H PRN PRN Reason: Fever >100.4 F Acetylcysteine (Acetylcysteine 20%) 4 ml IH [id number] [facility] Last Admin: 01/07/17 19:31 Dose: 4 ml Albuterol/Ipratropium (Duoneb 3 Mg/0.5 Mg (3 Ml) Ud) 3 ml IH [id number] [facility] Last Admin: 01/07/17 19:30 Dose: 3 ml Albuterol/Ipratropium (Duoneb 3 Mg/0.5 Mg (3 Ml) Ud) 3 ml IH Q2H PRN PRN Reason: Shortness of Breath Last Admin: 01/06/17 19:34 Dose: 3 ml Alprazolam (Xanax) 0.25 mg PO BID PRN; Protocol PRN Reason: Anxiety Stop: 01/09/17 18:01 Last Admin: 01/07/17 22:16 Dose: 0.25 mg Aspirin (Aspirin Chewable) 81 mg PO DAILY [facility] Last Admin: 01/07/17 09:27 Dose: 81 mg Enoxaparin Sodium (Lovenox) 40 mg SC DAILY [facility] PRN Reason: Protocol Last Admin: 01/07/17 09:29 Dose: 40 mg Escitalopram Oxalate (Lexapro) 5 mg PO DAILY [facility] Last Admin: 01/07/17 09:27 Dose: 5 mg Guaifenesin (Mucinex La) 600 mg PO Q6H [facility] Last Admin: 01/07/17 22:16 Dose: 600 mg Meropenem 1g/NS 100mL IVPB (Meropenem 1g/Ns 100ml Ivpb) 1 gm in 100 mls @ 100 mls/hr IVPB Q8 [facility] PRN Reason: Protocol Stop: 01/09/17 22:31 Last Admin: 01/07/17 22:15 Dose: 100 mls/hr Nystatin (Nystatin Oral Susp) 5 ml PO QID [facility] Last Admin: 01/07/17 22:16 Dose: 5 ml Pantoprazole Sodium (Protonix Ec Tab) 40 mg PO 0600 [facility] Last Admin: 01/07/17 06:08 Dose: 40 mg Prednisone (Prednisone Tab) 30 mg PO DAILY [facility] Last Admin: 01/07/17 09:28 Dose: 30 mg Pregabalin (Lyrica) 100 mg PO TID [facility] Last Admin: 01/07/17 17:01 Dose: 100 mg Sucralfate (Carafate Oral Susp) 1 gm PO 0600,1600 [facility] Last Admin: 01/07/17 17:01 Dose: 1 gm Tamsulosin HCl (Flomax) 0.4 mg PO DAILY [facility] Last Admin: 01/07/17 09:27 Dose: 0.4 mg Tramadol/Acetaminophen (Ultracet 37.5/325 Mg) 1 tab PO Q12H PRN PRN Reason: Pain, moderate (4-7) Last Admin: 01/07/17 22:16 Dose: 1 tab - Labs Labs: 01/07/17 06:20 01/07/17 06:20 PT 11.9 SECONDS (9.4-12.5) 01/02/17 14:40 INR 1.08 (0.93-1.08) 01/02/17 14:40 APTT 32.7 Seconds (25.1-36.5) 01/02/17 14:40 Attending/Attestation - Attestation I have personally seen and examined this patient.: Yes I have fully participated in the care of the patient.: Yes I have reviewed all pertinent clinical information, including history, physical exam and plan: Yes Notes (Text): This is an addendum to GI progress report dictated by Ceci Bhardwaj APN.The patient was seen and examined earlier. Medical records, lab studies, imagings were reviewed. Last 24 hours events reviewed. Agreed with the above treatment plan as outlined in Ceci Bhardwaj APN's notes the with the addition of the following Tolerating diet. Recommended soft diet in view of his edentulous status Would benefit from repeating esophagogram contrast study as the previous esophagram was limited Will discuss with the radiologist prior to Ordering the test 01/07/17 23:14 <Ceci Bhardwaj J - Last Filed: 01/08/17 18:18> Subjective - Date & Time of Evaluation Date of Evaluation: 01/07/17 Time of Evaluation: :25 - Subjective Subjective: seen and examined at the bedside earlier this morning, the chart was reviewed. Patient tolerating soft diet he had emesis morning denies dysphagia, nausea, vomiting, or abdominal pain. No acute respiratory distress noted. He had formed BM this morning, no reports of bleeding. Objective - Vital Signs/Intake and Output Vital Signs (last 24 hours): Temp Pulse Resp BP Pulse Ox 98.4 F 114 H 20 102/62 98 01/07/17 12:00 01/07/17 12:00 01/07/17 12:00 01/07/17 12:00 01/07/17 06:00 Intake and Output: 01/07/17 01/07/17 06:59 18:59 Intake Total 120 Output Total 700 Balance -580 - Medications Medications: Current Medications Acetaminophen (Tylenol 325mg Tab) 650 mg PO Q6H PRN PRN Reason: Fever >100.4 F Acetylcysteine (Acetylcysteine 20%) 4 ml IH [id number] [facility] Last Admin: 01/07/17 07:29 Dose: 4 ml Albuterol/Ipratropium (Duoneb 3 Mg/0.5 Mg (3 Ml) Ud) 3 ml IH [id number] [facility] Last Admin: 01/07/17 11:12 Dose: 3 ml Albuterol/Ipratropium (Duoneb 3 Mg/0.5 Mg (3 Ml) Ud) 3 ml IH Q2H PRN PRN Reason: Shortness of Breath Last Admin: 01/06/17 19:34 Dose: 3 ml Alprazolam (Xanax) 0.25 mg PO BID PRN; Protocol PRN Reason: Anxiety Stop: 01/09/17 18:01 Last Admin: 01/06/17 22:44 Dose: 0.25 mg Aspirin (Aspirin Chewable) 81 mg PO DAILY [facility] Last Admin: 01/07/17 09:27 Dose: 81 mg Enoxaparin Sodium (Lovenox) 40 mg SC DAILY [facility] PRN Reason: Protocol Last Admin: 01/07/17 09:29 Dose: 40 mg Escitalopram Oxalate (Lexapro) 5 mg PO DAILY [facility] Last Admin: 01/07/17 09:27 Dose: 5 mg Guaifenesin (Mucinex La) 600 mg PO Q6H [facility] Last Admin: 01/07/17 06:08 Dose: 600 mg Meropenem 1g/NS 100mL IVPB (Meropenem 1g/Ns 100ml Ivpb) 1 gm in 100 mls @ 100 mls/hr IVPB Q8 [facility] PRN Reason: Protocol Stop: 01/09/17 22:31 Last Admin: 01/07/17 06:08 Dose: 100 mls/hr Nystatin (Nystatin Oral Susp) 5 ml PO QID [facility] Last Admin: 01/07/17 09:28 Dose: 5 ml Pantoprazole Sodium (Protonix Ec Tab) 40 mg PO 0600 [facility] Last Admin: 01/07/17 06:08 Dose: 40 mg Prednisone (Prednisone Tab) 30 mg PO DAILY [facility] Last Admin: 01/07/17 09:28 Dose: 30 mg Pregabalin (Lyrica) 100 mg PO TID [facility] Last Admin: 01/07/17 09:27 Dose: 100 mg Sucralfate (Carafate Oral Susp) 1 gm PO 0600,1600 [facility] Last Admin: 01/07/17 06:07 Dose: 1 gm Tamsulosin HCl (Flomax) 0.4 mg PO DAILY [facility] Last Admin: 01/07/17 09:27 Dose: 0.4 mg Tramadol/Acetaminophen (Ultracet 37.5/325 Mg) 1 tab PO Q12H PRN PRN Reason: Pain, moderate (4-7) Last Admin: 01/05/17 21:28 Dose: 1 tab - Labs Labs: 01/07/17 06:20 01/07/17 06:20 PT 11.9 SECONDS (9.4-12.5) 01/02/17 14:40 INR 1.08 (0.93-1.08) 01/02/17 14:40 APTT 32.7 Seconds (25.1-36.5) 01/02/17 14:40 - Constitutional Appears: No Acute Distress - Eye Exam Eye Exam: Normal appearance. absent: Scleral icterus - ENT Exam ENT Exam: Mucous Membranes Moist - Respiratory Exam Respiratory Exam: Decreased Breath Sounds, NORMAL BREATHING PATTERN. absent: Rales, Wheezes, Respiratory Distress - Cardiovascular Exam Cardiovascular Exam: +S1, +S2 - GI/Abdominal Exam GI & Abdominal Exam: Soft, Normal Bowel Sounds. absent: Guarding, Tenderness, Organomegaly, Rebound - Neurological Exam Neurological Exam: Alert, Awake, Oriented x3 - Skin Skin Exam: Dry, Warm Assessment and Plan - Assessment and Plan (Free Text) Assessment: Assessment: Esophageal cancer status post radiation, c/o dyphagia, had esophagram, limited study Pneumonia with cavitary lesion End-stage COPD Anemia Plan: Continue diet as tolerated, on soft, patient was told to chew food well, he has risks for aspiration would benefit form puree diet Continue Protonix On steroid and aspirin Follow-up hemoglobin and hematocrit Continue Carafate May consider repeating barium swallow study Seen and discussed with Dr. Gardner
--- NOTE | 2017-01-07 18:10 | CP.PCM.PN ---
Subjective - Date & Time of Evaluation Date of Evaluation: 01/07/17 Time of Evaluation: 16:45 - Subjective Subjective: Comfortable, not in distress, afebrile. Still with dyspnea on exertion though. Objective - Vital Signs/Intake and Output Vital Signs (last 24 hours): Temp Pulse Resp BP Pulse Ox 98.4 F 113 H 20 102/62 98 01/07/17 12:00 01/07/17 14:00 01/07/17 12:00 01/07/17 12:00 01/07/17 06:00 Intake and Output: 01/07/17 01/07/17 06:59 18:59 Intake Total 120 720 Output Total 700 400 Balance -580 320 - Medications Medications: Current Medications Acetaminophen (Tylenol 325mg Tab) 650 mg PO Q6H PRN PRN Reason: Fever >100.4 F Acetylcysteine (Acetylcysteine 20%) 4 ml IH [id number] [facility] Last Admin: 01/07/17 07:29 Dose: 4 ml Albuterol/Ipratropium (Duoneb 3 Mg/0.5 Mg (3 Ml) Ud) 3 ml IH [id number] [facility] Last Admin: 01/07/17 11:12 Dose: 3 ml Albuterol/Ipratropium (Duoneb 3 Mg/0.5 Mg (3 Ml) Ud) 3 ml IH Q2H PRN PRN Reason: Shortness of Breath Last Admin: 01/06/17 19:34 Dose: 3 ml Alprazolam (Xanax) 0.25 mg PO BID PRN; Protocol PRN Reason: Anxiety Stop: 01/09/17 18:01 Last Admin: 01/06/17 22:44 Dose: 0.25 mg Aspirin (Aspirin Chewable) 81 mg PO DAILY [facility] Last Admin: 01/07/17 09:27 Dose: 81 mg Enoxaparin Sodium (Lovenox) 40 mg SC DAILY [facility] PRN Reason: Protocol Last Admin: 01/07/17 09:29 Dose: 40 mg Escitalopram Oxalate (Lexapro) 5 mg PO DAILY [facility] Last Admin: 01/07/17 09:27 Dose: 5 mg Guaifenesin (Mucinex La) 600 mg PO Q6H [facility] Last Admin: 01/07/17 13:23 Dose: 600 mg Meropenem 1g/NS 100mL IVPB (Meropenem 1g/Ns 100ml Ivpb) 1 gm in 100 mls @ 100 mls/hr IVPB Q8 [facility] PRN Reason: Protocol Stop: 01/09/17 22:31 Last Admin: 01/07/17 14:04 Dose: 100 mls/hr Nystatin (Nystatin Oral Susp) 5 ml PO QID [facility] Last Admin: 01/07/17 13:23 Dose: 5 ml Pantoprazole Sodium (Protonix Ec Tab) 40 mg PO 0600 [facility] Last Admin: 01/07/17 06:08 Dose: 40 mg Prednisone (Prednisone Tab) 30 mg PO DAILY [facility] Last Admin: 01/07/17 09:28 Dose: 30 mg Pregabalin (Lyrica) 100 mg PO TID [facility] Last Admin: 01/07/17 13:23 Dose: 100 mg Sucralfate (Carafate Oral Susp) 1 gm PO 0600,1600 [facility] Last Admin: 01/07/17 06:07 Dose: 1 gm Tamsulosin HCl (Flomax) 0.4 mg PO DAILY [facility] Last Admin: 01/07/17 09:27 Dose: 0.4 mg Tramadol/Acetaminophen (Ultracet 37.5/325 Mg) 1 tab PO Q12H PRN PRN Reason: Pain, moderate (4-7) Last Admin: 01/05/17 21:28 Dose: 1 tab - Labs Labs: 01/07/17 06:20 01/07/17 06:20 PT 11.9 SECONDS (9.4-12.5) 01/02/17 14:40 INR 1.08 (0.93-1.08) 01/02/17 14:40 APTT 32.7 Seconds (25.1-36.5) 01/02/17 14:40 - Constitutional Appears: Chronically Ill - Head Exam Head Exam: NORMAL INSPECTION - Neck Exam Neck Exam: absent: Meningismus - Respiratory Exam Respiratory Exam: Decreased Breath Sounds - Cardiovascular Exam Cardiovascular Exam: +S1, +S2 - GI/Abdominal Exam GI & Abdominal Exam: Soft. absent: Tenderness Assessment and Plan - Assessment and Plan (Free Text) Plan: Assessment severe sepsis with respiratory failure from lung cavitary lesion in the right upper lobe - lung pyogenic abscess with Pseudomonas - no evidence of TB end-stage COPD with history of heavy smoking esophageal CAD basal cell CA S/P appendectomy Plan continue Merrem (day 5) based on sensitivities of the Pseudomonas in the sputum cx - will need prolonged therapy and will discuss with Pulmonary will continue to monitor clinically
--- NOTE | 2017-01-07 19:01 | PN ---
PULMONARY PROGRESS NOTE DATE: 01/07/2017 REFERRING PHYSICIAN: Dr. Jesika Gómez. SUBJECTIVE: He is out of bed to chair. Feels better. He has upper back muscle type pain with cough, still have cough and shortness of breath, but overall feels better. No nausea, no vomiting, no diarrhea. No leg pain or leg swelling. Could not tolerate BIPAP last night, only used for 10 minutes or so. PHYSICAL EXAMINATION GENERAL: In no acute distress. VITAL SIGNS: Temperature is 98, heart rate 130, respiratory rate is 20, blood pressure 102/62, and pulse ox is 97% on nasal cannula. HEENT: Moist mucous membrane. No ulcer or thrush noted. NECK: Supple. No JVD. LUNGS: Has poor airflow, prolonged expiratory phase. HEART: S1 and S2. ABDOMEN: Soft and nontender. No organomegaly. EXTREMITIES: There is no edema. NEUROLOGIC: Awake, alert. Follows simple commands. MEDICATIONS: He is on Mucomyst 20% inhaled q. 6 hours, aspirin 81 mg daily, Carafate 1 g twice a day, DuoNeb q. 2 hours p.r.n. DuoNeb q. 4 hours round the clock, Flomax 0.4 mg daily, Lexapro 5 mg daily, Lovenox 40 mg subcutaneous daily, Lyrica 100 mg 3 times a day, meropenem 1 g IV q. 8 hours, Mucinex LA 600 mg q. 6 hours, nystatin 5 mL q.i.d., prednisone 30 mg daily, Protonix 40 mg daily, Tylenol p.r.n. basis, Ultracet 37.5/325 1 tab q. 12 hours p.r.n., Xanax 0.25 mg twice a day p.r.n. LABORATORY DATA: Shows hemoglobin 8.8, hematocrit 29.3, WBC 16.8, platelet count is 314. Sodium 136, potassium 4.1, chloride 91, bicarbonate 40, BUN 18, creatinine 0.5, glucose is 85, calcium is 9.3, phosphorus 2.6, magnesium 1.9. AST 47, ALT 55, albumin is 2.8. CA 19-9 antigen is 100, carcinoembryonic antigen is 3.4, vitamin B12 is 729. RBC folate level is 1166. Microbiology: Three sputum specimen negative for AFB smear. Sputum culture on 11/03/2016 has pseudomonas. Chest x-ray done today shows improving infiltrate, still have a cavity though. IMPRESSION AND PLAN: Resolving aspiration pneumonia with cavity, has a pseudomonas in the sputum culture. Chronic obstructive lung disease, may have obstructive sleep apnea syndrome; esophageal cancer, been on radiation therapy, clinically much improved. He has a right upper back muscular type pain. Spoke to nursing staff and suggests heating pad on as needed basis. Continue pain management. Continue oral and inhaled bronchodilator. Antibiotics as per infectious disease. GI followup to assure there is no fistula or perforation of esophagus. Keep head elevated at 45 degrees. Physical therapy. The patient does have anemia. Clinically with this kind of chronic obstructive pulmonary disease, his hemoglobin should be 17-18, so he is really symptomatic with it. We will speak to Hematology services, can he benefit from some bone marrow stimulant. Thank you and we will follow with you. Jesika Srivastava MD
[2017-01-07] MEDS: TraMADol/Apap 37.5/325 mg Tab PO PRN (22:16)
[2017-01-08] MEDS: Albuterol-Ipratrop 3 mg / 0.5 (3 ml) UD IH SCH ×6 (00:48→19:20)
[2017-01-08] MEDS: Acetylcysteine 20% Inhal Soln (4ml) IH SCH ×4 (04:15→19:20)
[2017-01-08] MEDS: Pantoprazole 40 mg EC Tab PO SCH (07:04)
[2017-01-08] MEDS: Meropenem 1g/NS 100mL IVPB 1 GM/100 ML PIGGYBACK IVPB SCH (07:04)
[2017-01-08] MEDS: guaiFENesin 600 mg ER Tab PO SCH ×4 (07:04→22:15)
[2017-01-08 08:44] LABS: BASO # 0.03 K/mm3 (0.0-2.0); BASO % 0.3 % (0.0-3.0); EOS # 0.1 (0.0-0.7); EOS % 1.2 % (1.5-5.0); GRAN # 8.59 (1.4-6.5); GRAN % 84.3 % (50.0-68.0); HEMATOCRIT 27.7 % (42.0-52.0); LYMPH # 0.5 (1.2-3.4); LYMPH % 4.7 % (22.0-35.0); MEAN CORPUSCULAR HEMOGLOBIN 24.6 pg (25.0-35.0); MEAN PLATELET VOLUME 8.4 fl (7.0-11.0); MONO % 9.5 % (1.0-6.0); RED CELL DISTRIBUTION WIDTH 18.7 % (11.5-14.5); WHITE BLOOD COUNT 10.2 10^3/ul (4.5-11.0)
[2017-01-08 09:10] LABS: BILIRUBIN,TOTAL 0.3 mg/dL (0.2-1.3); BLOOD UREA NITROGEN 17 mg/dL (7-21); GFR AFRICAN-AMERICAN > 60; MAGNESIUM 1.9 mg/dL (1.7-2.2); PHOSPHOROUS 2.6 mg/dL (2.5-4.5); POTASSIUM 4.1 mmol/L (3.6-5.0); TOTAL PROTEIN 5.4 g/dL (5.8-8.3)
--- NOTE | 2017-01-08 09:20 | CP.PCM.PN ---
Subjective - Date & Time of Evaluation Date of Evaluation: 01/08/17 Time of Evaluation: 09:14 - Subjective Subjective: Heme/Onc Progress Note for Adal Barbosa PGY2 Patient seen and examined at bedside. As per nursing, there were no acute overnight events. Patient was resting in bed upon examination. He denies chest pain, SOB, numbness/tingling, nausea, vomiting, diarrhea, fever or chills. He does complain of fatigue. Objective - Vital Signs/Intake and Output Vital Signs (last 24 hours): Temp Pulse Resp BP Pulse Ox 97.8 F 90 20 131/80 94 L 01/08/17 06:00 01/08/17 06:00 01/08/17 06:00 01/08/17 06:00 01/08/17 06:00 Intake and Output: 01/08/17 01/08/17 06:59 18:59 Output Total 300 Balance -300 - Medications Medications: Current Medications Acetaminophen (Tylenol 325mg Tab) 650 mg PO Q6H PRN PRN Reason: Fever >100.4 F Acetylcysteine (Acetylcysteine 20%) 4 ml IH [id number] [facility] Last Admin: 01/08/17 07:54 Dose: 4 ml Albuterol/Ipratropium (Duoneb 3 Mg/0.5 Mg (3 Ml) Ud) 3 ml IH [id number] [facility] Last Admin: 01/08/17 07:54 Dose: 3 ml Albuterol/Ipratropium (Duoneb 3 Mg/0.5 Mg (3 Ml) Ud) 3 ml IH Q2H PRN PRN Reason: Shortness of Breath Last Admin: 01/06/17 19:34 Dose: 3 ml Alprazolam (Xanax) 0.25 mg PO BID PRN; Protocol PRN Reason: Anxiety Stop: 01/09/17 18:01 Last Admin: 01/07/17 22:16 Dose: 0.25 mg Aspirin (Aspirin Chewable) 81 mg PO DAILY [facility] Last Admin: 01/07/17 09:27 Dose: 81 mg Enoxaparin Sodium (Lovenox) 40 mg SC DAILY [facility] PRN Reason: Protocol Last Admin: 01/07/17 09:29 Dose: 40 mg Escitalopram Oxalate (Lexapro) 5 mg PO DAILY [facility] Last Admin: 01/07/17 09:27 Dose: 5 mg Guaifenesin (Mucinex La) 600 mg PO Q6H [facility] Last Admin: 01/08/17 07:04 Dose: 600 mg Meropenem 1g/NS 100mL IVPB (Meropenem 1g/Ns 100ml Ivpb) 1 gm in 100 mls @ 100 mls/hr IVPB Q8 [facility] PRN Reason: Protocol Stop: 01/09/17 22:31 Last Admin: 01/08/17 07:04 Dose: 100 mls/hr Nystatin (Nystatin Oral Susp) 5 ml PO QID [facility] Last Admin: 01/07/17 22:16 Dose: 5 ml Pantoprazole Sodium (Protonix Ec Tab) 40 mg PO 0600 [facility] Last Admin: 01/08/17 07:04 Dose: 40 mg Prednisone (Prednisone Tab) 30 mg PO DAILY [facility] Last Admin: 01/07/17 09:28 Dose: 30 mg Pregabalin (Lyrica) 100 mg PO TID [facility] Last Admin: 01/07/17 17:01 Dose: 100 mg Sucralfate (Carafate Oral Susp) 1 gm PO 0600,1600 [facility] Last Admin: 01/07/17 17:01 Dose: 1 gm Tamsulosin HCl (Flomax) 0.8 mg PO DAILY [facility] Tramadol/Acetaminophen (Ultracet 37.5/325 Mg) 1 tab PO Q12H PRN PRN Reason: Pain, moderate (4-7) Last Admin: 01/07/17 22:16 Dose: 1 tab - Labs Labs: 01/08/17 08:15 01/07/17 06:20 PT 11.9 SECONDS (9.4-12.5) 01/02/17 14:40 INR 1.08 (0.93-1.08) 01/02/17 14:40 APTT 32.7 Seconds (25.1-36.5) 01/02/17 14:40 - Constitutional Appears: No Acute Distress - Head Exam Head Exam: ATRAUMATIC, NORMAL INSPECTION, NORMOCEPHALIC - Eye Exam Eye Exam: Normal appearance, PERRL Pupil Exam: NORMAL ACCOMODATION, PERRL - ENT Exam ENT Exam: Mucous Membranes Moist - Neck Exam Neck Exam: Full ROM - Respiratory Exam Respiratory Exam: Clear to Ausculation Bilateral, NORMAL BREATHING PATTERN. absent: Rales, Rhonchi, Wheezes - Cardiovascular Exam Cardiovascular Exam: REGULAR RHYTHM, +S1, +S2. absent: Gallop, Rubs, Murmur - GI/Abdominal Exam GI & Abdominal Exam: Soft, Normal Bowel Sounds. absent: Rigid, Tenderness, Mass , Rebound - Extremities Exam Extremities Exam: Pedal Edema (+ 2 on feet bilaterally ) - Neurological Exam Neurological Exam: Alert, Awake, CN II-XII Intact, Oriented x3 - Psychiatric Exam Psychiatric exam: Normal Affect, Normal Mood - Skin Skin Exam: Dry, Warm Assessment and Plan - Assessment and Plan (Free Text) Assessment: This is a 71Y M with past medical history of esophageal cancer status post proton beam radiation, melanoma, basal cell cancer, and COPD who was admitted for RUL pneumonia as well as COPD exacerbation. Patient received one dose of Venofer IV. Iron studies showed low iron, TIBC, transferrin and elevated ferritin. Patient was seen at [facility] recently and will obtain previous records for comparison. Plan: - Transfuse 2 units PRBC - Continue medical management as per primary team as well as pulmonary and ID - Do not recommend lung biopsy at this time because it can exacerbate patient's lung disease - Patient follows up with oncologist in [place], [place] - Recommend outpatient follow up with Dr. Ferreira Case seen, discussed and reviewed with Dr. Ferreira. Adal Guthrie PGY2
[2017-01-08 09:45] LABS: ALKALINE PHOSPHATASE 73 U/L (38-126); ALT/SGPT 52 U/L (7-56); AST/SGOT 40 U/L (17-59); CALCIUM 9.3 mg/dL (8.4-10.5); CHLORIDE 91 mmol/L (98-107); GLUCOSE,RANDOM 95 mg/dL (70-110); SODIUM 134 mmol/L (132-148)
[2017-01-08 09:51] LABS: CARBON DIOXIDE 40 mmol/L (21-33)
[2017-01-08] MEDS: Nystatin 100,000 Units/ml Oral Susp 5 ml UD PO SCH ×4 (10:34→21:03)
[2017-01-08] MEDS: Enoxaparin 40 mg Syringe SC SCH (10:35)
--- NOTE | 2017-01-08 11:20 | CP.PCM.PN ---
Subjective - Date & Time of Evaluation Date of Evaluation: 01/08/17 Time of Evaluation: 10:20 - Subjective Subjective: Still with cough and shortness of breath but a little better, no fevers overnight. Objective - Vital Signs/Intake and Output Vital Signs (last 24 hours): Temp Pulse Resp BP Pulse Ox 97.8 F 90 20 131/80 94 L 01/08/17 06:00 01/08/17 06:00 01/08/17 06:00 01/08/17 06:00 01/08/17 06:00 Intake and Output: 01/08/17 01/08/17 06:59 18:59 Output Total 300 Balance -300 - Medications Medications: Current Medications Acetaminophen (Tylenol 325mg Tab) 650 mg PO Q6H PRN PRN Reason: Fever >100.4 F Acetylcysteine (Acetylcysteine 20%) 4 ml IH [id number] [facility] Last Admin: 01/08/17 04:15 Dose: Not Given Albuterol/Ipratropium (Duoneb 3 Mg/0.5 Mg (3 Ml) Ud) 3 ml IH [id number] [facility] Last Admin: 01/08/17 04:15 Dose: Not Given Albuterol/Ipratropium (Duoneb 3 Mg/0.5 Mg (3 Ml) Ud) 3 ml IH Q2H PRN PRN Reason: Shortness of Breath Last Admin: 01/06/17 19:34 Dose: 3 ml Alprazolam (Xanax) 0.25 mg PO BID PRN; Protocol PRN Reason: Anxiety Stop: 01/09/17 18:01 Last Admin: 01/07/17 22:16 Dose: 0.25 mg Aspirin (Aspirin Chewable) 81 mg PO DAILY [facility] Last Admin: 01/07/17 09:27 Dose: 81 mg Enoxaparin Sodium (Lovenox) 40 mg SC DAILY [facility] PRN Reason: Protocol Last Admin: 01/07/17 09:29 Dose: 40 mg Escitalopram Oxalate (Lexapro) 5 mg PO DAILY [facility] Last Admin: 01/07/17 09:27 Dose: 5 mg Guaifenesin (Mucinex La) 600 mg PO Q6H [facility] Last Admin: 01/08/17 07:04 Dose: 600 mg Meropenem 1g/NS 100mL IVPB (Meropenem 1g/Ns 100ml Ivpb) 1 gm in 100 mls @ 100 mls/hr IVPB Q8 [facility] PRN Reason: Protocol Stop: 01/09/17 22:31 Last Admin: 01/08/17 07:04 Dose: 100 mls/hr Nystatin (Nystatin Oral Susp) 5 ml PO QID [facility] Last Admin: 01/07/17 22:16 Dose: 5 ml Pantoprazole Sodium (Protonix Ec Tab) 40 mg PO 0600 [facility] Last Admin: 01/08/17 07:04 Dose: 40 mg Prednisone (Prednisone Tab) 30 mg PO DAILY [facility] Last Admin: 01/07/17 09:28 Dose: 30 mg Pregabalin (Lyrica) 100 mg PO TID [facility] Last Admin: 01/07/17 17:01 Dose: 100 mg Sucralfate (Carafate Oral Susp) 1 gm PO 0600,1600 [facility] Last Admin: 01/07/17 17:01 Dose: 1 gm Tamsulosin HCl (Flomax) 0.4 mg PO DAILY [facility] Last Admin: 01/07/17 09:27 Dose: 0.4 mg Tramadol/Acetaminophen (Ultracet 37.5/325 Mg) 1 tab PO Q12H PRN PRN Reason: Pain, moderate (4-7) Last Admin: 01/07/17 22:16 Dose: 1 tab - Labs Labs: 01/07/17 06:20 01/07/17 06:20 PT 11.9 SECONDS (9.4-12.5) 01/02/17 14:40 INR 1.08 (0.93-1.08) 01/02/17 14:40 APTT 32.7 Seconds (25.1-36.5) 01/02/17 14:40 - Constitutional Appears: Chronically Ill - Head Exam Head Exam: NORMAL INSPECTION - ENT Exam ENT Exam: Mucous Membranes Moist - Neck Exam Neck Exam: absent: Lymphadenopathy, Meningismus - Respiratory Exam Respiratory Exam: Decreased Breath Sounds, Rales (scattered) - Cardiovascular Exam Cardiovascular Exam: +S1, +S2 - GI/Abdominal Exam GI & Abdominal Exam: Soft. absent: Tenderness Assessment and Plan - Assessment and Plan (Free Text) Plan: Assessment severe sepsis with respiratory failure from lung cavitary lesion in the right upper lobe - lung pyogenic abscess with Pseudomonas - no evidence of TB end-stage COPD with history of heavy smoking esophageal CAD basal cell CA S/P appendectomy Plan continue Merrem (day 6) based on sensitivities of the Pseudomonas in the sputum cx - will need prolonged therapy and will discuss with Pulmonary will continue to follow clinically
[2017-01-08] MEDS: Meropenem IV 1 gm in NS 50 ML IVPB SCH ×2 (13:44→22:44)
--- NOTE | 2017-01-08 14:22 | CP.PCM.PN ---
<Sajan Currie - Last Filed: 01/08/17 14:18> Subjective - Date & Time of Evaluation Date of Evaluation: 01/08/17 Time of Evaluation: 07:30 - Subjective Subjective: IM Progress Note for Hospitalist Service Patient seen and examined at bedside. No acute events reported overnight. Continues to complain of shortness of breath this AM, unchanged from last 2-3 days. Also still complaining of increased difficulty urinating, and qualifies that he is having several episodes of urge with minimal output. Still denies pain/burning with urination, chest pain, nausea, emesis, dysphagia, sensation of food/liquid stuck in throat while swallowing. Objective - Vital Signs/Intake and Output Vital Signs (last 24 hours): Temp Pulse Resp BP Pulse Ox 97.9 F 106 H 20 128/58 L 94 L 01/08/17 12:00 01/08/17 12:00 01/08/17 12:00 01/08/17 12:00 01/08/17 06:00 Intake and Output: 01/08/17 01/08/17 06:59 18:59 Output Total 300 Balance -300 - Medications Medications: Current Medications Acetaminophen (Tylenol 325mg Tab) 650 mg PO Q6H PRN PRN Reason: Fever >100.4 F Acetylcysteine (Acetylcysteine 20%) 4 ml IH [id number] [facility] Last Admin: 01/08/17 11:07 Dose: 4 ml Albuterol/Ipratropium (Duoneb 3 Mg/0.5 Mg (3 Ml) Ud) 3 ml IH [id number] [facility] Last Admin: 01/08/17 11:07 Dose: 3 ml Albuterol/Ipratropium (Duoneb 3 Mg/0.5 Mg (3 Ml) Ud) 3 ml IH Q2H PRN PRN Reason: Shortness of Breath Last Admin: 01/06/17 19:34 Dose: 3 ml Alprazolam (Xanax) 0.25 mg PO BID PRN; Protocol PRN Reason: Anxiety Stop: 01/09/17 18:01 Last Admin: 01/07/17 22:16 Dose: 0.25 mg Aspirin (Aspirin Chewable) 81 mg PO DAILY [facility] Last Admin: 01/08/17 10:35 Dose: 81 mg Enoxaparin Sodium (Lovenox) 40 mg SC DAILY [facility] PRN Reason: Protocol Last Admin: 01/08/17 10:35 Dose: 40 mg Escitalopram Oxalate (Lexapro) 5 mg PO DAILY [facility] Last Admin: 01/08/17 10:34 Dose: 5 mg Guaifenesin (Mucinex La) 600 mg PO Q6H [facility] Last Admin: 01/08/17 10:44 Dose: 600 mg Meropenem (Merrem Iv 1 Gm Premix) 50 mls @ 100 mls/hr IVPB Q8 [facility] PRN Reason: Protocol Last Admin: 01/08/17 13:44 Dose: 100 mls/hr Nystatin (Nystatin Oral Susp) 5 ml PO QID [facility] Last Admin: 01/08/17 13:15 Dose: 5 ml Pantoprazole Sodium (Protonix Ec Tab) 40 mg PO 0600 [facility] Last Admin: 01/08/17 07:04 Dose: 40 mg Prednisone (Prednisone Tab) 30 mg PO DAILY [facility] Last Admin: 01/08/17 10:35 Dose: 30 mg Pregabalin (Lyrica) 100 mg PO TID [facility] Last Admin: 01/08/17 13:15 Dose: 100 mg Sucralfate (Carafate Oral Susp) 1 gm PO 0600,1600 [facility] Last Admin: 01/07/17 17:01 Dose: 1 gm Tamsulosin HCl (Flomax) 0.8 mg PO DAILY [facility] Last Admin: 01/08/17 10:35 Dose: 0.8 mg Tramadol/Acetaminophen (Ultracet 37.5/325 Mg) 1 tab PO Q12H PRN PRN Reason: Pain, moderate (4-7) Last Admin: 01/07/17 22:16 Dose: 1 tab - Labs Labs: 01/08/17 08:15 01/08/17 08:15 PT 11.9 SECONDS (9.4-12.5) 01/02/17 14:40 INR 1.08 (0.93-1.08) 01/02/17 14:40 APTT 32.7 Seconds (25.1-36.5) 01/02/17 14:40 - Additional Findings Additional findings: - Constitutional Appears: Non-toxic, No Acute Distress, Chronically Ill - Head Exam Head Exam: ATRAUMATIC, NORMAL INSPECTION, NORMOCEPHALIC - Eye Exam Eye Exam: EOMI, Normal appearance. absent: Conjunctival injection, Scleral icterus Pupil Exam: absent: Irregular, Unequal - ENT Exam ENT Exam: Mucous Membranes Moist - Neck Exam Neck Exam: Full ROM, Trachea midline, No auscultatable stridor - Respiratory Exam Respiratory Exam: Decreased Breath Sounds (moderate-severely decreased breath sounds in all goff), Prolonged Expiratory Phase. absent: Accessory Muscle Use , Chest Wall Tenderness, Clear to Ausculation Bilateral, Rales, Rhonchi, Wheezes , Respiratory Distress, Stridor - Cardiovascular Exam Cardiovascular Exam: REGULAR RHYTHM, RRR, +S1, +S2. absent: Bradycardia, Tachycardia, Irregular Rhythm, JVD, +S4 - GI/Abdominal Exam GI & Abdominal Exam: Soft, Normal Bowel Sounds. absent: Distended, Firm, Rigid , Tenderness - Extremities Exam Extremities Exam: Full ROM, Pedal Edema (+1-2 pedal edema in bilateral LE, extending from feet to mid-shaw). absent: Calf Tenderness, Joint Swelling - Neurological Exam Neurological Exam: Alert, Awake, Oriented x3, Moving all extremities spontaneously, unwitnessed gait but able to transition from lying supine to sitting at edge of bed without difficulty or assistance, motor strength in all extremities and bilateral cardiac cath lab radiology technologist strength 5/5 - Psychiatric Exam Psychiatric exam: Normal Affect, Normal Mood - Skin Skin Exam: Dry, Intact, Normal Color, Warm Assessment and Plan - Assessment and Plan (Free Text) Assessment: This is a 71 yo M with PMH of End-Stage COPD, invasive esophageal CA s /p radiation and chemo, and melanoma s/p resection who was recently admitted for COPD exacerbation presents with worsening shortness of breath, cough (with known pseudomonas in sputum) with fevers. Currently treating for HCAP with lung abscess likely 2/2 aspiration and COPD exacerbation. He is being treated for presumed resistant Psuedomonas infection and abscess, and will require 3+ weeks of IV abx. AFB smears negative x2, not TB as per ID, now off precautions. Plan: 1) HCAP with Lung Abscess -likely 2/2 Aspiration given eating without dentures, eating inappropriate diet ; not TB as per ID -remains afebrile; leukocytosis decreased from 16.8 to 10.2 -AFB smear x2 negative, pending 1 more samples -Influenza negative; Urine legionella ag negative, Procal 0.40, Urine culture notable for Yeast -CT chest on admit: peripheral infiltrate in the right upper lobe c/w pneumonia with a large abscess or cavity (see full report); CXR yesterday: persistant R lung cavity in apex, resolution of remaining infiltrates, no signs of fluid overload -ID consulted, appreciate all recs; Merrem 1gm Q8, Rec CT guided bx of lung abscess, unlikely TB so precautions discontinued, d/c Doxy and Vanco; concern for resistant Pseudomonas, will likely need 3+ weeks of IV abx, will need PICC line -Pulm consulted: lung abscess likely due to aspiration, unlikely TB, no biopsy given PNA and pt clinical condition, need to r/o fistula -Continue Aspiration precautions -Current Shortness of breath likely baseline for severe COPD, home O2 dependent , no signs of fluid overload on CXR 2) COPD Exacerbation -Taper prednisone as tolerated, currently at 30mg daily -Continue Duonebs q4H [facility], Duonebs q2H prn SOB 3) Hx of Invasive Esophageal CA -Last round of radiation was 4 weeks ago -Diet: soft foods -Heme/onc on consulted - Venofer x1 given, transfusing 2 units pRBCs today as per Heme-onc -Esophagram obtained- no obstruction or aspiration, but limited study; as per GI , needs non-portable Esophagram with contrast, not Barium, obtainable now that no longer on precautions for possible TB 4) Back Pain -likely musculoskeletal -Pain control, heating pad to back, PT/OT -Continue to monitor 5) Hx of anxiety/depression -Continue Xanax prn -Continue Lexapro 6) Anemia -likely 2/2 chronic disease -Hgb 8.3, baseline is 8-9 as per charting -Heme consulted and gave 1x Venofer, now transfusing 2 units pRBCs as per Heme- onc 7) BPH: -Flomax 0.8mg daily -if continues to experience urinary difficulties, will consider starting Finasteride Dispo: downgraded to Remote-telemetry, pending PICC line and 3+ weeks IV antibiotics, [facility] vs home with services as per PT, pending pt decision for PICC line FEN: Soft diet, no IVF Access: Peripheral IVs, pending PICC line Consults: Pulm, GI, ID, PT Ppx: Protonix for GI, Lovenox for DVT Patient seen, reviewed, and discussed with attending, Dr. Pina. <Silvana,Anwar A - Last Filed: 01/08/17 15:13> Objective - Vital Signs/Intake and Output Vital Signs (last 24 hours): Temp Pulse Resp BP Pulse Ox 97.9 F 106 H 20 128/58 L 94 L 01/08/17 12:00 01/08/17 12:00 01/08/17 12:00 01/08/17 12:00 01/08/17 06:00 Intake and Output: 01/08/17 01/08/17 06:59 18:59 Output Total 300 Balance -300 - Medications Medications: Current Medications Acetaminophen (Tylenol 325mg Tab) 650 mg PO Q6H PRN PRN Reason: Fever >100.4 F Acetylcysteine (Acetylcysteine 20%) 4 ml IH [id number] [facility] Last Admin: 01/08/17 11:07 Dose: 4 ml Albuterol/Ipratropium (Duoneb 3 Mg/0.5 Mg (3 Ml) Ud) 3 ml IH [id number] [facility] Last Admin: 01/08/17 11:07 Dose: 3 ml Albuterol/Ipratropium (Duoneb 3 Mg/0.5 Mg (3 Ml) Ud) 3 ml IH Q2H PRN PRN Reason: Shortness of Breath Last Admin: 01/06/17 19:34 Dose: 3 ml Alprazolam (Xanax) 0.25 mg PO BID PRN; Protocol PRN Reason: Anxiety Stop: 01/09/17 18:01 Last Admin: 01/07/17 22:16 Dose: 0.25 mg Aspirin (Aspirin Chewable) 81 mg PO DAILY [facility] Last Admin: 01/08/17 10:35 Dose: 81 mg Enoxaparin Sodium (Lovenox) 40 mg SC DAILY [facility] PRN Reason: Protocol Last Admin: 01/08/17 10:35 Dose: 40 mg Escitalopram Oxalate (Lexapro) 5 mg PO DAILY [facility] Last Admin: 01/08/17 10:34 Dose: 5 mg Guaifenesin (Mucinex La) 600 mg PO Q6H [facility] Last Admin: 01/08/17 10:44 Dose: 600 mg Meropenem (Merrem Iv 1 Gm Premix) 50 mls @ 100 mls/hr IVPB Q8 [facility] PRN Reason: Protocol Last Admin: 01/08/17 13:44 Dose: 100 mls/hr Nystatin (Nystatin Oral Susp) 5 ml PO QID [facility] Last Admin: 01/08/17 13:15 Dose: 5 ml Pantoprazole Sodium (Protonix Ec Tab) 40 mg PO 0600 [facility] Last Admin: 01/08/17 07:04 Dose: 40 mg Prednisone (Prednisone Tab) 30 mg PO DAILY [facility] Last Admin: 01/08/17 10:35 Dose: 30 mg Pregabalin (Lyrica) 100 mg PO TID [facility] Last Admin: 01/08/17 13:15 Dose: 100 mg Sucralfate (Carafate Oral Susp) 1 gm PO 0600,1600 [facility] Last Admin: 01/07/17 17:01 Dose: 1 gm Tamsulosin HCl (Flomax) 0.8 mg PO DAILY [facility] Last Admin: 01/08/17 10:35 Dose: 0.8 mg Tramadol/Acetaminophen (Ultracet 37.5/325 Mg) 1 tab PO Q12H PRN PRN Reason: Pain, moderate (4-7) Last Admin: 01/07/17 22:16 Dose: 1 tab - Labs Labs: 01/08/17 08:15 01/08/17 08:15 PT 11.9 SECONDS (9.4-12.5) 01/02/17 14:40 INR 1.08 (0.93-1.08) 01/02/17 14:40 APTT 32.7 Seconds (25.1-36.5) 01/02/17 14:40 Attending/Attestation - Attestation I have personally seen and examined this patient.: Yes I have fully participated in the care of the patient.: Yes I have reviewed all pertinent clinical information, including history, physical exam and plan: Yes Notes (Text): 01/08/17 15:08 71 year old male with past medical history of COPD, esophageal cancer s/p chemotherapy and radiation who presented with worsening shortness of breath. He is currently being treated with iv antibiotics for HCAP with lung abscess, possibly secondary to aspiration. He is also on duonebs and tapering steroids. He is being followed by pulmonary and ID. AFBs have been negative. Sputum culture grew Pseudomonas Aeruginosa. Case was discussed with Dr. Stephens who recommends 3 week of iv antibiotics. This was discussed with case packer. 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 He stated he will need to first discuss with his . GI is following as well. Esophagram study was limited and patient may need repeat study as per GI. Continue with soft diet. Continue with aspiration precautions. Frankie Pina MD Hospitalist.
[2017-01-08] MEDS: Sucralfate 1 gm/10 ml Oral Susp UD PO SCH (16:11)
--- NOTE | 2017-01-08 18:20 | CP.PCM.PN ---
<Ceci Bhardwaj - Last Filed: 01/08/17 18:18> Subjective - Date & Time of Evaluation Date of Evaluation: 01/08/17 Time of Evaluation: 09:50 - Subjective Subjective: Seen and examined at the bedside earlier, the chart was reviewed. Patient still reports shortness of breath but no respiratory distress. He tolerated eggs this morning, denies dysphagia. Had formed BM, no reports of bleeding. Objective - Vital Signs/Intake and Output Vital Signs (last 24 hours): Temp Pulse Resp BP Pulse Ox 98.6 F 105 H 20 112/62 94 L 01/08/17 18:00 01/08/17 18:00 01/08/17 18:00 01/08/17 18:00 01/08/17 06:00 Intake and Output: 01/08/17 01/08/17 06:59 18:59 Intake Total 0 Output Total 300 Balance -300 0 - Medications Medications: Current Medications Acetaminophen (Tylenol 325mg Tab) 650 mg PO Q6H PRN PRN Reason: Fever >100.4 F Acetylcysteine (Acetylcysteine 20%) 4 ml IH [id number] [facility] Albuterol/Ipratropium (Duoneb 3 Mg/0.5 Mg (3 Ml) Ud) 3 ml IH Q2H PRN PRN Reason: Shortness of Breath Last Admin: 01/06/17 19:34 Dose: 3 ml Albuterol/Ipratropium (Duoneb 3 Mg/0.5 Mg (3 Ml) Ud) 3 ml IH [id number] [facility] Alprazolam (Xanax) 0.25 mg PO BID PRN; Protocol PRN Reason: Anxiety Stop: 01/09/17 18:01 Last Admin: 01/07/17 22:16 Dose: 0.25 mg Aspirin (Aspirin Chewable) 81 mg PO DAILY COUNTS [facility]CLUDE 234 BEDS AT [facility] Last Admin: 01/08/17 10:35 Dose: 81 mg Enoxaparin Sodium (Lovenox) 40 mg SC DAILY COUNTS INCLUDE 234 BEDS AT THE [facility] PRN Reason: Protocol Last Admin: 01/08/17 10:35 Dose: 40 mg Escitalopram Oxalate (Lexapro) 5 mg PO DAILY COUNTS INCLUDE 234 BEDS AT THE [facility] Last Admin: 01/08/17 10:34 Dose: 5 mg Guaifenesin (Mucinex La) 600 mg PO Q6H COUNTS INCLUDE 234 BEDS AT THE [facility] Last Admin: 01/08/17 16:15 Dose: 600 mg Meropenem (Merrem Iv 1 Gm Premix) 50 mls @ 100 mls/hr IVPB Q8 COUNTS INCLUDE 234 BEDS AT THE [facility] PRN Reason: Protocol Last Admin: 01/08/17 13:44 Dose: 100 mls/hr Nystatin (Nystatin Oral Susp) 5 ml PO QID COUNTS INCLUDE 234 BEDS AT THE [facility] Last Admin: 01/08/17 17:23 Dose: 5 ml Pantoprazole Sodium (Protonix Ec Tab) 40 mg PO 0600 COUNTS INCLUDE 234 BEDS AT THE [facility] Last Admin: 01/08/17 07:04 Dose: 40 mg Prednisone (Prednisone Tab) 30 mg PO DAILY COUNTS INCLUDE 234 BEDS AT THE [facility] Last Admin: 01/08/17 10:35 Dose: 30 mg Pregabalin (Lyrica) 100 mg PO TID COUNTS INCLUDE 234 BEDS AT [facility] Last Admin: 01/08/17 17:23 Dose: 100 mg Sucralfate (Carafate Oral Susp) 1 gm PO 0600,1600 COUNTS INCLUDE 234 BEDS AT [facility] Last Admin: 01/08/17 16:11 Dose: 1 gm Tamsulosin HCl (Flomax) 0.8 mg PO DAILY COUNTS INCLUDE 234 BEDS AT THE [facility] Last Admin: 01/08/17 10:35 Dose: 0.8 mg Tramadol/Acetaminophen (Ultracet 37.5/325 Mg) 1 tab PO Q12H PRN PRN Reason: Pain, moderate (4-7) Last Admin: 01/07/17 22:16 Dose: 1 tab - Labs Labs: 01/08/17 08:15 01/08/17 08:15 PT 11.9 SECONDS (9.4-12.5) 01/02/17 14:40 INR 1.08 (0.93-1.08) 01/02/17 14:40 APTT 32.7 Seconds (25.1-36.5) 01/02/17 14:40 - Constitutional Appears: No Acute Distress - Eye Exam Eye Exam: Normal appearance. absent: Scleral icterus - ENT Exam ENT Exam: Mucous Membranes Moist - Neck Exam Neck Exam: Normal Inspection - Respiratory Exam Respiratory Exam: Decreased Breath Sounds, NORMAL BREATHING PATTERN. absent: Rales, Rhonchi, Wheezes, Respiratory Distress - Cardiovascular Exam Cardiovascular Exam: +S1, +S2 - GI/Abdominal Exam GI & Abdominal Exam: Soft, Normal Bowel Sounds. absent: Guarding, Tenderness, Organomegaly, Rebound - Extremities Exam Extremities Exam: Normal Capillary Refill, Pedal Edema. absent: Calf Tenderness - Neurological Exam Neurological Exam: Alert, Awake, Oriented x3 - Skin Skin Exam: Dry, Warm Assessment and Plan - Assessment and Plan (Free Text) Assessment: ssessment: Esophageal cancer status post radiation, c/o dyphagia, had esophagram, limited study Pneumonia with cavitary lesion End-stage COPD Anemia Plan: Continue diet as tolerated, on soft, patient was told to chew food well, he has risks for aspiration would benefit from puree diet Continue Protonix On steroid and aspirin Follow-up hemoglobin and hematocrit Pending blood transfusion Continue Carafate On Lovenox On aspirin On prednisone May consider repeating esophagogram Seen and discussed with Dr. Gardner <Maribell Gardner V - Last Filed: 01/08/17 22:24> Objective - Vital Signs/Intake and Output Vital Signs (last 24 hours): Temp Pulse Resp BP Pulse Ox 98.0 F 106 H 20 113/69 94 L 01/08/17 21:03 01/08/17 21:03 01/08/17 21:03 01/08/17 21:03 01/08/17 06:00 Intake and Output: 01/08/17 01/09/17 18:59 06:59 Intake Total 0 375 Balance 0 375 - Medications Medications: Current Medications Acetaminophen (Tylenol 325mg Tab) 650 mg PO Q6H PRN PRN Reason: Fever >100.4 F Acetylcysteine (Acetylcysteine 20%) 4 ml IH [id number] COUNTS INCLUDE 234 BEDS AT THE [facility] Last Admin: 01/08/17 19:20 Dose: 4 ml Albuterol/Ipratropium (Duoneb 3 Mg/0.5 Mg (3 Ml) Ud) 3 ml IH Q2H PRN PRN Reason: Shortness of Breath Last Admin: 01/06/17 19:34 Dose: 3 ml Albuterol/Ipratropium (Duoneb 3 Mg/0.5 Mg (3 Ml) Ud) 3 ml IH [id number] [facility] Last Admin: 01/08/17 19:20 Dose: 3 ml Alprazolam (Xanax) 0.25 mg PO BID PRN; Protocol PRN Reason: Anxiety Stop: 01/09/17 18:01 Last Admin: 01/08/17 22:14 Dose: 0.25 mg Aspirin (Aspirin Chewable) 81 mg PO DAILY COUNTS INCLUDE 234 BEDS AT [facility] Last Admin: 01/08/17 10:35 Dose: 81 mg Enoxaparin Sodium (Lovenox) 40 mg SC DAILY COUNTS INCLUDE 234 BEDS AT [facility] PRN Reason: Protocol Last Admin: 01/08/17 10:35 Dose: 40 mg Escitalopram Oxalate (Lexapro) 5 mg PO DAILY COUNTS INCLUDE 234 BEDS AT [facility] Last Admin: 01/08/17 10:34 Dose: 5 mg Guaifenesin (Mucinex La) 600 mg PO Q6H COUNTS INCLUDE 234 BEDS AT [facility] Last Admin: 01/08/17 22:15 Dose: 600 mg Meropenem (Merrem Iv 1 Gm Premix) 50 mls @ 100 mls/hr IVPB Q8 [facility] PRN Reason: Protocol Last Admin: 01/08/17 13:44 Dose: 100 mls/hr Nystatin (Nystatin Oral Susp) 5 ml PO QID COUNTS INCLUDE 234 BEDS AT [facility] Last Admin: 01/08/17 21:03 Dose: 5 ml Pantoprazole Sodium (Protonix Ec Tab) 40 mg PO 0600 COUNTS INCLUDE 234 BEDS AT [facility] Last Admin: 01/08/17 07:04 Dose: 40 mg Prednisone (Prednisone Tab) 20 mg PO DAILY COUNTS INCLUDE 234 BEDS AT [facility] Pregabalin (Lyrica) 100 mg PO TID COUNTS INCLUDE 234 BEDS AT THE [facility] Last Admin: 01/08/17 17:23 Dose: 100 mg Sucralfate (Carafate Oral Susp) 1 gm PO 0600,1600 COUNTS INCLUDE 234 BEDS AT [facility] Last Admin: 01/08/17 16:11 Dose: 1 gm Tamsulosin HCl (Flomax) 0.8 mg PO DAILY COUNTS INCLUDE 234 BEDS AT [facility] Last Admin: 01/08/17 10:35 Dose: 0.8 mg Tramadol/Acetaminophen (Ultracet 37.5/325 Mg) 1 tab PO Q12H PRN PRN Reason: Pain, moderate (4-7) Last Admin: 01/08/17 22:14 Dose: 1 tab - Labs Labs: 01/08/17 08:15 01/08/17 08:15 PT 11.9 SECONDS (9.4-12.5) 01/02/17 14:40 INR 1.08 (0.93-1.08) 01/02/17 14:40 APTT 32.7 Seconds (25.1-36.5) 01/02/17 14:40 Attending/Attestation - Attestation I have personally seen and examined this patient.: Yes I have fully participated in the care of the patient.: Yes I have reviewed all pertinent clinical information, including history, physical exam and plan: Yes Notes (Text): This is an addendum to GI progress report dictated by Ceci Bhardwaj APN.The patient was seen and examined earlier. Medical records, lab studies, imagings were reviewed. Last 24 hours events reviewed. Agreed with the above treatment plan as outlined in Ceci Bhardwaj APN's notes the with the addition of the following Patient remains short of breath on minimal exertion. We will hold off esophagogram now. We'll reconsider it for if his respiratory status improves. We'll also discuss with the radiologist regarding the study ffollow-up hemoglobin and hematocrit. 01/08/17 22:22 01/08/17 22:24
[2017-01-08] MEDS: TraMADol/Apap 37.5/325 mg Tab PO PRN (22:14)
--- NOTE | 2017-01-09 00:42 | PN ---
DATE: 01/08/2017 PULMONARY PROGRESS NOTE REFERRING PHYSICIAN: Jesika Gómez MD SUBJECTIVE: The patient is sitting up in a chair. is at bedside. Night was remarkable. Tolerated BiPAP for 6 hours. Feels much better this morning. Decreased cough and shortness of breath. No nausea, no vomiting, and no diarrhea. No leg pain or leg swelling. OBJECTIVE: GENERAL: In no acute distress. VITAL SIGNS: Temperature is 98, heart rate is 106, respiratory rate is 20, and blood pressure is 113/69. HEENT: Moist mucous membrane. Crowded airway. Mallampati score is 4. NECK: Supple. No JVD. LUNGS: Has a little airflow, prolonged expiratory phase. HEART: S1 and S2. ABDOMEN: Soft and nontender. No organomegaly. EXTREMITIES: No edema. NEUROLOGIC: Awake and alert. Follows simple commands. MEDICATIONS: He is on Mucomyst 20% inhaled q. 6 hours, aspirin 81 mg daily, Carafate 1 g twice a day, albuterol and and Atrovent nebulizer q. 12 hours. p.r.n. and q. 6 hours round the clock, Flomax 0.8 mg daily, Lexapro 5 mg daily, Lovenox 40 mg daily, Lyrica 100 mg 3 times a day, meropenem 1 g IV q. 8 hours, Mucinex LA 600 mg q. 6 hours, nystatin oral 5 mL q.i.d., prednisone 30 mg daily, Protonix 40 mg daily, Tylenol p.r.n. basis, tramadol/Tylenol 37.5/325 one tablet q. 12 hours. p.r.n., and Xanax 0.25 mg twice a day. LABORATORY DATA: Shows hemoglobin of 8.3, hematocrit of 27.7, WBC of 10.2, and platelet count is 272. Sodium of 134, potassium of 4.1, chloride of 91, bicarbonate of 40, BUN of 17, creatinine of 0.5, glucose of 95, calcium of 9.3, phosphorus of 2.6, and magnesium of 1.5. AST of 40, ALT of 52, alkaline phosphatase is 73, and albumin is 2.7. Microbiology 3: Sputum, AFB smear has been negative. IMPRESSION AND PLAN: Resolving aspiration pneumonia as a cavity, sputum as a pseudomonas. Chronic obstructive lung disease, obstructive sleep apnea syndrome; esophageal cancer, been on radiation therapy. Last night tolerated bilevel positive airway pressure well, felt much better. We will continue bilevel positive airway pressure off sleeping, keep head at 45 degrees and careful with sedation. Gastric prophylaxis and deep venous thrombosis prophylaxis. The patient is being transfused. We will suggest getting bone marrow stimulant to improve hemoglobin and physical therapy. May have to go to TICU. I believe, he will need antibiotics until cavity is closed and infiltrate disappear. We will decrease prednisone to 20 mg daily. Thank you and we will follow with you. Jesika Srivastava MD
[2017-01-09] MEDS: Albuterol-Ipratrop 3 mg / 0.5 (3 ml) UD IH SCH ×4 (02:30→19:41)
[2017-01-09] MEDS: Acetylcysteine 20% Inhal Soln (4ml) IH SCH ×4 (02:30→19:41)
[2017-01-09] MEDS: Meropenem IV 1 gm in NS 50 ML IVPB SCH ×3 (06:01→21:32)
[2017-01-09] MEDS: Pantoprazole 40 mg EC Tab PO SCH (06:01)
[2017-01-09] MEDS: Sucralfate 1 gm/10 ml Oral Susp UD PO SCH ×2 (06:01→17:24)
[2017-01-09] MEDS: guaiFENesin 600 mg ER Tab PO SCH ×4 (06:01→22:24)
[2017-01-09 06:35] LABS: BASO # 0.02 K/mm3 (0.0-2.0); BASO % 0.1 % (0.0-3.0); EOS # 0.1 (0.0-0.7); EOS % 0.5 % (1.5-5.0); GRAN # 12.38 (1.4-6.5); GRAN % 89.6 % (50.0-68.0); HEMATOCRIT 32.1 % (42.0-52.0); LYMPH # 0.5 (1.2-3.4); LYMPH % 3.4 % (22.0-35.0); MEAN CELL VOLUME 83.4 fl (80.0-105.0); MEAN CORPUSCULAR HGB CONC 31.2 g/dl (31.0-37.0); MEAN PLATELET VOLUME 8.9 fl (7.0-11.0); MONO # 0.9 (0.1-0.6); MONO % 6.4 % (1.0-6.0); RED CELL DISTRIBUTION WIDTH 18.3 % (11.5-14.5); WHITE BLOOD COUNT 13.8 10^3/ul (4.5-11.0)
[2017-01-09 07:01] LABS: ALB/GLOB RATIO 1.1 (1.1-1.8); ALKALINE PHOSPHATASE 79 U/L (38-126); ALT/SGPT 64 U/L (7-56); AST/SGOT 39 U/L (17-59); BILIRUBIN,TOTAL 0.5 mg/dL (0.2-1.3); BLOOD UREA NITROGEN 13 mg/dL (7-21); CALCIUM 9.4 mg/dL (8.4-10.5); CARBON DIOXIDE 39 mmol/L (21-33); CHLORIDE 91 mmol/L (95-110); GFR AFRICAN-AMERICAN > 60; GLUCOSE,RANDOM 86 mg/dL (70-110); PHOSPHOROUS 2.5 mg/dL (2.5-4.5); POTASSIUM 4.1 mmol/L (3.6-5.0); SODIUM 132 mmol/L (132-148); TOTAL PROTEIN 5.7 g/dL (5.8-8.3)
[2017-01-09 08:21] LABS: INR 0.95 (0.93-1.08)
[2017-01-09] MEDS: Enoxaparin 40 mg Syringe SC SCH (09:02)
[2017-01-09] MEDS: Nystatin 100,000 Units/ml Oral Susp 5 ml UD PO SCH ×4 (09:03→21:32)
--- NOTE | 2017-01-09 09:11 | CP.PCM.PN ---
Subjective - Date & Time of Evaluation Date of Evaluation: 01/09/17 Time of Evaluation: 09:04 - Subjective Subjective: Heme/Onc Progress Note for Adal Barbosa PGY2 Patient seen and examined at bedside. As per nursing, there were no acute overnight events. Patient reports having dysuria sometimes, but denies hematuria , chest pain, shortness of breath, nausea, vomiting, diarrhea, numbness/tingling , fever or chills. Objective - Vital Signs/Intake and Output Vital Signs (last 24 hours): Temp Pulse Resp BP Pulse Ox 97.1 F L 64 19 136/78 94 L 01/09/17 06:00 01/09/17 06:00 01/09/17 06:00 01/09/17 06:00 01/09/17 06:00 Intake and Output: 01/09/17 01/09/17 06:59 18:59 Intake Total 1295 Output Total 550 Balance 745 - Medications Medications: Current Medications Acetaminophen (Tylenol 325mg Tab) 650 mg PO Q6H PRN PRN Reason: Fever >100.4 F Acetylcysteine (Acetylcysteine 20%) 4 ml IH [id number] [facility] Last Admin: 01/09/17 07:40 Dose: 4 ml Albuterol/Ipratropium (Duoneb 3 Mg/0.5 Mg (3 Ml) Ud) 3 ml IH Q2H PRN PRN Reason: Shortness of Breath Last Admin: 01/06/17 19:34 Dose: 3 ml Albuterol/Ipratropium (Duoneb 3 Mg/0.5 Mg (3 Ml) Ud) 3 ml IH [id number] [facility] Last Admin: 01/09/17 07:40 Dose: 3 ml Alprazolam (Xanax) 0.25 mg PO BID PRN; Protocol PRN Reason: Anxiety Stop: 01/09/17 18:01 Last Admin: 01/08/17 22:14 Dose: 0.25 mg Aspirin (Aspirin Chewable) 81 mg PO DAILY [facility] Last Admin: 01/08/17 10:35 Dose: 81 mg Enoxaparin Sodium (Lovenox) 40 mg SC DAILY [facility] PRN Reason: Protocol Last Admin: 01/08/17 10:35 Dose: 40 mg Escitalopram Oxalate (Lexapro) 5 mg PO DAILY [facility] Last Admin: 01/08/17 10:34 Dose: 5 mg Guaifenesin (Mucinex La) 600 mg PO Q6H [facility] Last Admin: 01/09/17 06:01 Dose: 600 mg Meropenem (Merrem Iv 1 Gm Premix) 50 mls @ 100 mls/hr IVPB Q8 [facility] PRN Reason: Protocol Last Admin: 01/09/17 06:01 Dose: 100 mls/hr Nystatin (Nystatin Oral Susp) 5 ml PO QID [facility] Last Admin: 01/08/17 21:03 Dose: 5 ml Pantoprazole Sodium (Protonix Ec Tab) 40 mg PO 0600 [facility] Last Admin: 01/09/17 06:01 Dose: 40 mg Prednisone (Prednisone Tab) 20 mg PO DAILY [facility] Pregabalin (Lyrica) 100 mg PO TID [facility] Last Admin: 01/08/17 17:23 Dose: 100 mg Sucralfate (Carafate Oral Susp) 1 gm PO 0600,1600 [facility] Last Admin: 01/09/17 06:01 Dose: 1 gm Tamsulosin HCl (Flomax) 0.8 mg PO DAILY [facility] Last Admin: 01/08/17 10:35 Dose: 0.8 mg Tramadol/Acetaminophen (Ultracet 37.5/325 Mg) 1 tab PO Q12H PRN PRN Reason: Pain, moderate (4-7) Last Admin: 01/08/17 22:14 Dose: 1 tab - Labs Labs: 01/09/17 06:00 01/09/17 06:00 PT 10.4 SECONDS (9.4-12.5) 01/09/17 07:35 INR 0.95 (0.93-1.08) 01/09/17 07:35 APTT 34.0 Seconds (25.1-36.5) 01/09/17 07:35 - Constitutional Appears: No Acute Distress - Head Exam Head Exam: ATRAUMATIC, NORMAL INSPECTION, NORMOCEPHALIC - Eye Exam Eye Exam: Normal appearance, PERRL Pupil Exam: NORMAL ACCOMODATION - ENT Exam ENT Exam: Mucous Membranes Moist - Neck Exam Neck Exam: Full ROM - Respiratory Exam Respiratory Exam: Decreased Breath Sounds, NORMAL BREATHING PATTERN. absent: Rhonchi, Wheezes, Stridor - Cardiovascular Exam Cardiovascular Exam: REGULAR RHYTHM, +S1, +S2. absent: Gallop, Rubs, Murmur - GI/Abdominal Exam GI & Abdominal Exam: Soft, Normal Bowel Sounds. absent: Rigid, Tenderness, Mass , Rebound - Extremities Exam Extremities Exam: Pedal Edema (+ 1 bilaterally ) - Neurological Exam Neurological Exam: Alert, Awake, CN II-XII Intact, Oriented x3 - Psychiatric Exam Psychiatric exam: Normal Affect, Normal Mood - Skin Skin Exam: Dry, Warm Assessment and Plan - Assessment and Plan (Free Text) Assessment: This is a 71Y M with past medical history of esophageal cancer status post proton beam radiation, melanoma, basal cell cancer, and COPD who was admitted for RUL pneumonia as well as COPD exacerbation. Patient received one dose of Venofer IV. Iron studies showed low iron, TIBC, transferrin and elevated ferritin. Patient was seen at [facility] recently and reviewed previous records for comparison. Patient is status post 2 units PRBC and tolerated well. Plan: - Recommendations from pulmonary and GI appreciated as well as Infectious disease - Pulmonary decreased prednisone to 20mg - GI recommended possible esophagram on - ID recommends prolonged therapy of antibiotics for cavitary lesion on lung - Will obtain U/A for dysuria - Do not recommend lung biopsy at this time because it can exacerbate patient's lung disease - Patient follows up with oncologist in [place], [place] - Recommend outpatient follow up with Dr. Ferreira Case seen, discussed and reviewed with Dr. Ferreira. Adal Guthrie PGY2
--- NOTE | 2017-01-09 12:44 | CP.PCM.PN ---
Subjective - Date & Time of Evaluation Date of Evaluation: 01/09/17 Time of Evaluation: 09:50 - Subjective Subjective: Comfortable but still with cough and shortness of breath especially on exertion , no fevers overnight. Objective - Vital Signs/Intake and Output Vital Signs (last 24 hours): Temp Pulse Resp BP Pulse Ox 97.1 F L 64 19 136/78 94 L 01/09/17 06:00 01/09/17 06:00 01/09/17 06:00 01/09/17 06:00 01/09/17 06:00 Intake and Output: 01/09/17 01/09/17 06:59 18:59 Intake Total 1295 Output Total 550 Balance 745 - Medications Medications: Current Medications Acetaminophen (Tylenol 325mg Tab) 650 mg PO Q6H PRN PRN Reason: Fever >100.4 F Acetylcysteine (Acetylcysteine 20%) 4 ml IH [id number] [facility] Last Admin: 01/09/17 02:30 Dose: 4 ml Albuterol/Ipratropium (Duoneb 3 Mg/0.5 Mg (3 Ml) Ud) 3 ml IH Q2H PRN PRN Reason: Shortness of Breath Last Admin: 01/06/17 19:34 Dose: 3 ml Albuterol/Ipratropium (Duoneb 3 Mg/0.5 Mg (3 Ml) Ud) 3 ml IH [id number] [facility] Last Admin: 01/09/17 02:30 Dose: 3 ml Alprazolam (Xanax) 0.25 mg PO BID PRN; Protocol PRN Reason: Anxiety Stop: 01/09/17 18:01 Last Admin: 01/08/17 22:14 Dose: 0.25 mg Aspirin (Aspirin Chewable) 81 mg PO DAILY [facility] Last Admin: 01/08/17 10:35 Dose: 81 mg Enoxaparin Sodium (Lovenox) 40 mg SC DAILY [facility] PRN Reason: Protocol Last Admin: 01/08/17 10:35 Dose: 40 mg Escitalopram Oxalate (Lexapro) 5 mg PO DAILY [facility] Last Admin: 01/08/17 10:34 Dose: 5 mg Guaifenesin (Mucinex La) 600 mg PO Q6H [facility] Last Admin: 01/09/17 06:01 Dose: 600 mg Meropenem (Merrem Iv 1 Gm Premix) 50 mls @ 100 mls/hr IVPB Q8 [facility] PRN Reason: Protocol Last Admin: 01/09/17 06:01 Dose: 100 mls/hr Nystatin (Nystatin Oral Susp) 5 ml PO QID [facility] Last Admin: 01/08/17 21:03 Dose: 5 ml Pantoprazole Sodium (Protonix Ec Tab) 40 mg PO 0600 [facility] Last Admin: 01/09/17 06:01 Dose: 40 mg Prednisone (Prednisone Tab) 20 mg PO DAILY [facility] Pregabalin (Lyrica) 100 mg PO TID [facility] Last Admin: 01/08/17 17:23 Dose: 100 mg Sucralfate (Carafate Oral Susp) 1 gm PO 0600,1600 [facility] Last Admin: 01/09/17 06:01 Dose: 1 gm Tamsulosin HCl (Flomax) 0.8 mg PO DAILY [facility] Last Admin: 01/08/17 10:35 Dose: 0.8 mg Tramadol/Acetaminophen (Ultracet 37.5/325 Mg) 1 tab PO Q12H PRN PRN Reason: Pain, moderate (4-7) Last Admin: 01/08/17 22:14 Dose: 1 tab - Labs Labs: 01/09/17 06:00 01/09/17 06:00 PT 11.9 SECONDS (9.4-12.5) 01/02/17 14:40 INR 1.08 (0.93-1.08) 01/02/17 14:40 APTT 32.7 Seconds (25.1-36.5) 01/02/17 14:40 - Constitutional Appears: Non-toxic, Chronically Ill - Head Exam Head Exam: NORMAL INSPECTION - ENT Exam ENT Exam: Mucous Membranes Moist - Neck Exam Neck Exam: absent: Meningismus - Respiratory Exam Respiratory Exam: Decreased Breath Sounds - Cardiovascular Exam Cardiovascular Exam: +S1, +S2 - GI/Abdominal Exam GI & Abdominal Exam: Soft. absent: Tenderness Assessment and Plan - Assessment and Plan (Free Text) Plan: Assessment severe sepsis with respiratory failure from lung cavitary lesion in the right upper lobe - lung pyogenic abscess with Pseudomonas - no evidence of TB end-stage COPD with history of heavy smoking esophageal CAD basal cell CA S/P appendectomy Plan continue Merrem (day 7) based on sensitivities of the Pseudomonas in the sputum cx - will need prolonged therapy - discussed with Dr. Pina will continue to follow clinically
--- NOTE | 2017-01-09 13:30 | CP.PCM.PN ---
<Sajan Currie - Last Filed: 01/09/17 13:25> Subjective - Date & Time of Evaluation Date of Evaluation: 01/09/17 Time of Evaluation: 07:30 - Subjective Subjective: IM Progress Note for Hospitalist Service Patient seen and examined at bedside. No acute events reported overnight. Unchanged shortness of breath; as per Pulm this is his baseline status. Still denies pain/burning with urination, chest pain, nausea, emesis, dysphagia, sensation of food/liquid stuck in throat while swallowing. After discussion with Patient and family on phone, he is amenable to PICC line for intermediate card tender antibiotics; as per ID he needs 3 weeks total of IV antibiotics for his Pseudomonas abscess. Objective - Vital Signs/Intake and Output Vital Signs (last 24 hours): Temp Pulse Resp BP Pulse Ox 97.1 F L 112 H 19 136/78 94 L 01/09/17 06:00 01/09/17 10:00 01/09/17 06:00 01/09/17 06:00 01/09/17 06:00 Intake and Output: 01/09/17 01/09/17 06:59 18:59 Intake Total 1295 Output Total 550 Balance 745 - Medications Medications: Current Medications Acetaminophen (Tylenol 325mg Tab) 650 mg PO Q6H PRN PRN Reason: Fever >100.4 F Acetylcysteine (Acetylcysteine 20%) 4 ml IH [id number] [facility] Last Admin: 01/09/17 07:40 Dose: 4 ml Albuterol/Ipratropium (Duoneb 3 Mg/0.5 Mg (3 Ml) Ud) 3 ml IH Q2H PRN PRN Reason: Shortness of Breath Last Admin: 01/06/17 19:34 Dose: 3 ml Albuterol/Ipratropium (Duoneb 3 Mg/0.5 Mg (3 Ml) Ud) 3 ml IH [id number] [facility] Last Admin: 01/09/17 07:40 Dose: 3 ml Alprazolam (Xanax) 0.25 mg PO BID PRN; Protocol PRN Reason: Anxiety Stop: 01/09/17 18:01 Last Admin: 01/08/17 22:14 Dose: 0.25 mg Aspirin (Aspirin Chewable) 81 mg PO DAILY [facility] Last Admin: 01/09/17 09:02 Dose: 81 mg Enoxaparin Sodium (Lovenox) 40 mg SC DAILY [facility] PRN Reason: Protocol Last Admin: 01/09/17 09:02 Dose: 40 mg Escitalopram Oxalate (Lexapro) 5 mg PO DAILY [facility] Last Admin: 01/09/17 09:01 Dose: 5 mg Guaifenesin (Mucinex La) 600 mg PO Q6H [facility] Last Admin: 01/09/17 12:09 Dose: 600 mg Meropenem (Merrem Iv 1 Gm Premix) 50 mls @ 100 mls/hr IVPB Q8 [facility] PRN Reason: Protocol Last Admin: 01/09/17 06:01 Dose: 100 mls/hr Nystatin (Nystatin Oral Susp) 5 ml PO QID [facility] Last Admin: 01/09/17 09:03 Dose: 5 ml Pantoprazole Sodium (Protonix Ec Tab) 40 mg PO 0600 [facility] Last Admin: 01/09/17 06:01 Dose: 40 mg Prednisone (Prednisone Tab) 20 mg PO DAILY [facility] Last Admin: 01/09/17 09:02 Dose: 20 mg Pregabalin (Lyrica) 100 mg PO TID [facility] Last Admin: 01/09/17 09:01 Dose: 100 mg Sucralfate (Carafate Oral Susp) 1 gm PO 0600,1600 [facility] Last Admin: 01/09/17 06:01 Dose: 1 gm Tamsulosin HCl (Flomax) 0.8 mg PO DAILY [facility] Last Admin: 01/09/17 09:02 Dose: 0.8 mg Tramadol/Acetaminophen (Ultracet 37.5/325 Mg) 1 tab PO Q12H PRN PRN Reason: Pain, moderate (4-7) Last Admin: 01/08/17 22:14 Dose: 1 tab - Labs Labs: 01/09/17 06:00 01/09/17 06:00 PT 10.4 SECONDS (9.4-12.5) 01/09/17 07:35 INR 0.95 (0.93-1.08) 01/09/17 07:35 APTT 34.0 Seconds (25.1-36.5) 01/09/17 07:35 - Additional Findings Additional findings: - Constitutional Appears: Non-toxic, No Acute Distress, Chronically Ill - Head Exam Head Exam: ATRAUMATIC, NORMAL INSPECTION, NORMOCEPHALIC - Eye Exam Eye Exam: EOMI, Normal appearance. absent: Conjunctival injection, Scleral icterus Pupil Exam: absent: Irregular, Unequal - ENT Exam ENT Exam: Mucous Membranes Moist - Neck Exam Neck Exam: Full ROM, Trachea midline, No auscultatable stridor - Respiratory Exam Respiratory Exam: Decreased Breath Sounds (moderate-severely decreased breath sounds in all goff, unchanged from prior exams), Prolonged Expiratory Phase. absent: Accessory Muscle Use, Chest Wall Tenderness, Clear to Ausculation Bilateral, Rales, Rhonchi, Wheezes, Respiratory Distress, Stridor - Cardiovascular Exam Cardiovascular Exam: REGULAR RHYTHM, RRR, +S1, +S2. absent: Bradycardia, Tachycardia, Irregular Rhythm, JVD, +S4 - GI/Abdominal Exam GI & Abdominal Exam: Soft, Normal Bowel Sounds. absent: Distended, Firm, Rigid , Tenderness - Extremities Exam Extremities Exam: Full ROM, Pedal Edema (+1-2 pedal edema in bilateral LE, extending from feet to mid-shaw). absent: Calf Tenderness, Joint Swelling - Neurological Exam Neurological Exam: Alert, Awake, Oriented x3, Moving all extremities spontaneously, unwitnessed gait but able to transition from lying supine to sitting at edge of bed without difficulty or assistance - Psychiatric Exam Psychiatric exam: Normal Affect, Normal Mood - Skin Skin Exam: Dry, Intact, Normal Color, Warm Assessment and Plan - Assessment and Plan (Free Text) Assessment: This is a 71 yo M with PMH of End-Stage COPD, invasive esophageal CA s /p radiation and chemo, and melanoma s/p resection who was recently admitted for COPD exacerbation presents with worsening shortness of breath, cough (with known pseudomonas in sputum) with fevers. Currently treating for HCAP with lung abscess likely 2/2 aspiration and COPD exacerbation. He is being treated for presumed resistant Psuedomonas infection and abscess, and will require 3 weeks total of IV Meropenem. AFB smears negative x3, not TB as per ID, now off precautions. Pending repeat Esophagram prior to discharge as per Pulm and Heme- onc. Plan: 1) HCAP with Lung Abscess -likely 2/2 Aspiration given eating without dentures, eating inappropriate diet ; not TB as per ID -remains afebrile; leukocytosis increased to 13.8 from 10.2 -AFB smear x3 negative -Influenza negative; Urine legionella ag negative, Procal 0.40, Urine culture notable for Yeast -CT chest on admit: peripheral infiltrate in the right upper lobe c/w pneumonia with a large abscess or cavity (see full report); CXR yesterday: persistant R lung cavity in apex, resolution of remaining infiltrates, no signs of fluid overload -ID consulted, appreciate all recs; Merrem 1gm Q8, Rec CT guided bx of lung abscess but as per Pulm and Heme-onc not to be done currently as can worsen current condition; resistant Pseudomonas, needs Merrem 1q8 for 3 weeks total ( today day 8) -Pulm consulted: lung abscess likely due to aspiration, unlikely TB, no biopsy given PNA and pt clinical condition, need to r/o fistula -GI following; no EGD to rule out fistula due to high risk for anesthesia, can obtain another Esophagram with contrast, possibly tomorrow -Continue Aspiration precautions -Current Shortness of breath likely baseline for severe COPD, home O2 dependent , no signs of fluid overload on CXR 2) COPD Exacerbation -Taper prednisone as tolerated, down to 20mg daily today -As per Pulm, currently optimized for Esophogram, no further optimization available for this pt -Continue Duonebs/Mucomyst q6H [facility], Duonebs q2H prn 3) Hx of Invasive Esophageal CA -Last round of radiation was 4 weeks ago -Diet: soft foods -Heme/onc on consulted - Venofer x1 given, s/p 2 units pRBCs transfused yesterday, Hgb increased from 8.3 to 10. -Esophagram obtained- no obstruction or aspiration, but limited study; as per GI , needs non-portable Esophagram with contrast, not Barium, obtainable now that no longer on precautions for possible TB, possibly tomorrow 4) Back Pain -likely musculoskeletal -Pain control, heating pad to back, PT/OT -Continue to monitor 5) Hx of anxiety/depression -Continue Xanax prn -Continue Lexapro 6) Anemia -likely 2/2 chronic disease -Hgb 10 today, increased from 8.3 after 2 units pRBC transfusion yesterday, baseline is 8-9 as per charting -Heme consulted and gave 1x Venofer, transfusion yesterday as per Heme-onc 7) BPH: -Flomax 0.8mg daily -if continues to experience urinary difficulties, will consider starting Finasteride Dispo: downgraded to Remote-telemetry, pending PICC line and 3 weeks IV Merrem ( total, currently day 8), [facility] vs home with services as per PT, NOT a candidate due to insurance as per social media developer/case management FEN: Soft diet, no IVF Access: Peripheral IVs, pending PICC line Consults: Pulm, GI, ID, PT Ppx: Protonix for GI, Lovenox for DVT Patient seen, reviewed, and discussed with attending, Dr. Pina. <Frankie Pina - Last Filed: 01/09/17 14:34> Objective - Vital Signs/Intake and Output Vital Signs (last 24 hours): Temp Pulse Resp BP Pulse Ox 98.1 F 92 H 20 128/75 94 L 01/09/17 12:00 01/09/17 12:00 01/09/17 12:00 01/09/17 12:00 01/09/17 06:00 Intake and Output: 01/09/17 01/09/17 06:59 18:59 Intake Total 1295 Output Total 550 Balance 745 - Medications Medications: Current Medications Acetaminophen (Tylenol 325mg Tab) 650 mg PO Q6H PRN PRN Reason: Fever >100.4 F Acetylcysteine (Acetylcysteine 20%) 4 ml IH [id number] [facility] Last Admin: 01/09/17 13:32 Dose: Not Given Albuterol/Ipratropium (Duoneb 3 Mg/0.5 Mg (3 Ml) Ud) 3 ml IH Q2H PRN PRN Reason: Shortness of Breath Last Admin: 01/06/17 19:34 Dose: 3 ml Albuterol/Ipratropium (Duoneb 3 Mg/0.5 Mg (3 Ml) Ud) 3 ml IH [id number] [facility] Last Admin: 01/09/17 13:32 Dose: Not Given Alprazolam (Xanax) 0.25 mg PO BID PRN; Protocol PRN Reason: Anxiety Stop: 01/09/17 18:01 Last Admin: 01/08/17 22:14 Dose: 0.25 mg Aspirin (Aspirin Chewable) 81 mg PO DAILY [facility] Last Admin: 01/09/17 09:02 Dose: 81 mg Enoxaparin Sodium (Lovenox) 40 mg SC DAILY [facility] PRN Reason: Protocol Last Admin: 01/09/17 09:02 Dose: 40 mg Escitalopram Oxalate (Lexapro) 5 mg PO DAILY [facility] Last Admin: 01/09/17 09:01 Dose: 5 mg Guaifenesin (Mucinex La) 600 mg PO Q6H [facility] Last Admin: 01/09/17 12:09 Dose: 600 mg Meropenem (Merrem Iv 1 Gm Premix) 50 mls @ 100 mls/hr IVPB Q8 [facility] PRN Reason: Protocol Last Admin: 01/09/17 06:01 Dose: 100 mls/hr Nystatin (Nystatin Oral Susp) 5 ml PO QID [facility] Last Admin: 01/09/17 09:03 Dose: 5 ml Pantoprazole Sodium (Protonix Ec Tab) 40 mg PO 0600 [facility] Last Admin: 01/09/17 06:01 Dose: 40 mg Prednisone (Prednisone Tab) 20 mg PO DAILY [facility] Last Admin: 01/09/17 09:02 Dose: 20 mg Pregabalin (Lyrica) 100 mg PO TID [facility] Last Admin: 01/09/17 09:01 Dose: 100 mg Sucralfate (Carafate Oral Susp) 1 gm PO 0600,1600 [facility] Last Admin: 01/09/17 06:01 Dose: 1 gm Tamsulosin HCl (Flomax) 0.8 mg PO DAILY [facility] Last Admin: 01/09/17 09:02 Dose: 0.8 mg Tramadol/Acetaminophen (Ultracet 37.5/325 Mg) 1 tab PO Q12H PRN PRN Reason: Pain, moderate (4-7) Last Admin: 01/08/17 22:14 Dose: 1 tab - Labs Labs: 01/09/17 06:00 01/09/17 06:00 PT 10.4 SECONDS (9.4-12.5) 01/09/17 07:35 INR 0.95 (0.93-1.08) 01/09/17 07:35 APTT 34.0 Seconds (25.1-36.5) 01/09/17 07:35 Attending/Attestation - Attestation I have personally seen and examined this patient.: Yes I have fully participated in the care of the patient.: Yes I have reviewed all pertinent clinical information, including history, physical exam and plan: Yes Notes (Text): 01/09/17 14:30 71 year old male with past medical history of COPD, esophageal cancer s/p chemotherapy and radiation who presented with worsening shortness of breath. He was found to have HCAP with lung abscess, possibly secondary to aspiration. Sputum culture grew Pseudomonas Aeruginosa. Continue with iv antibiotics. He is also on duonebs and tapering steroids. He will need at least 3 weeks of iv antibiotics as per ID. Picc line request is requested. He is being followed by pulmonary and ID. GI is following as well. Initial esophagram study was limited. Case discussed with GI and plan is for possible repeat esophagram tomorrow. Continue with soft diet and aspiration precautions. Hemoglobin improved after 2 units of prbc transfusion yesterday. Will continue to monitor. Case was discussed with Dr. Sue today. Frankie Pina MD Hospitalist.
[2017-01-09 15:25] LABS: PH,URINE 8.5 (4.7-8.0); URINE BILIRUBIN NEGATIVE (NEGATIVE); URINE BLOOD NEGATIVE (NEGATIVE); URINE GLUCOSE (UA) NEGATIVE (NEGATIVE); URINE KETONE NEGATIVE (NEGATIVE); URINE LEUKOCYTE ESTERASE NEGATIVE Leu/uL (NEGATIVE); URINE PROTEIN NEGATIVE mg/dL (<30 mg/dL); URINE UROBILINOGEN 0.2 E.U./dL (<1 E.U./dL)
[2017-01-09 15:28] LABS: URINE APPEARANCE CLEAR (CLEAR); URINE COLOR YELLOW (YELLOW)
--- NOTE | 2017-01-09 15:28 | PN ---
PULMONARY PROGRESS NOTE DATE: 01/09/2017 REFERRING PHYSICIAN: Jesika Gómez MD SUBJECTIVE: The patient is sitting in the side of bed, just got a PICC line, a little short of breath while lying flat. Night was unremarkable. Tolerated BiPAP. No headache. No rhinitis. Still short of breath with minimal exertion. No nausea. No vomiting. No diarrhea. No leg pain or leg swelling. PHYSICAL EXAMINATION GENERAL: In no acute distress. VITAL SIGNS: Temperature is 98, heart rate 64, respiratory rate is 20, blood pressure 136/78, pulse ox 94% on 2 liter nasal cannula. HEENT: Moist mucous membrane. Crowded airway. Mallampati score is 4. NECK: Supple. No JVD. LUNGS: There is poor airflow with prolonged expiratory phase. HEART: S1 and S2. ABDOMEN: Soft and nontender. No organomegaly. EXTREMITIES: There is no edema. NEUROLOGIC: Awake, alert. Follows simple commands. MEDICATIONS: He is on Mucomyst 20% inhaled q. 6 hours, aspirin 81 mg daily, Carafate 1 g twice a day, DuoNeb q. 2 hours p.r.n. and q. 6 hours round the clock, Flomax 0.8 g daily, Lexapro 5 mg daily, Lovenox 40 mg subcutaneous daily, Lyrica 100 mg 3 times a day, meropenem 1 g IV q. 8 hours, Mucinex LA 600 mg q. 6 hours, nystatin oral suspension 5 mL q.i.d., prednisone 20 mg daily, Protonix 40 mg daily, Tylenol p.r.n. basis, Ultracet 37.5/325 one tab q. 12 hours p.r.n., Xanax 0.25 mg twice a day p.r.n. LABORATORY DATA: Shows hemoglobin 10, hematocrit 32.1, WBC 13.8, platelet count is 275. INR 0.95, PTT 34. Sodium 132, potassium 4.1, chloride 91, bicarbonate is 39, BUN is 13, creatinine 0.4, calcium is 9.4, phosphorus is 2.5, magnesium 2.0. AST 39, ALT 64, alkaline phosphatase is 79, albumin is 2.9 IMPRESSION AND PLAN: Resolving aspiration pneumonia, still has a cavity, pseudomonas in the sputum, obstructive lung disease, obstructive sleep apnea syndrome and esophageal cancer, been on radiation therapy. May have a component of sleep apnea syndrome. Case discussed with medical massage therapist. From Pulmonary point of view, he is doing okay. I will continue antibiotics as per Infectious Diseases. Oral and inhaled bronchodilator. Gastric prophylaxis. Deep venous thrombosis prophylaxis. Oncology followup. Being followed by Gastrointestinal. We will need workup to assure that there is no fistula or perforation of the esophagus. I believe the patient will befit if we transfer him to [facility] to complete his antibiotics. At the same time, he could be followed closely by me and Dr. Ferreira. Thank you and we will follow with you. Jesika Srivastava MD
--- NOTE | 2017-01-09 15:42 | CP.PCM.PN ---
<Ceci Bhardwaj - Last Filed: 01/09/17 15:41> Subjective - Date & Time of Evaluation Date of Evaluation: 01/09/17 Time of Evaluation: 09:50 - Subjective Subjective: Seen and examined at the bedside earlier this morning, the chart was reviewed. Patient tolerating soft diet, had eggs again this morning. Still gets short of breath but no respiratory distress. Out of bed into the Brendon chair this morning. Moving bowels, no diarrhea. Denies nausea, vomiting, dysphagia, or abdominal pain. No reports of overt GI bleed. Objective - Vital Signs/Intake and Output Vital Signs (last 24 hours): Temp Pulse Resp BP Pulse Ox 98.1 F 92 H 20 128/75 94 L 01/09/17 12:00 01/09/17 12:00 01/09/17 12:00 01/09/17 12:00 01/09/17 06:00 Intake and Output: 01/09/17 01/09/17 06:59 18:59 Intake Total 1295 480 Output Total 550 600 Balance 745 -120 - Medications Medications: Current Medications Acetaminophen (Tylenol 325mg Tab) 650 mg PO Q6H PRN PRN Reason: Fever >100.4 F Acetylcysteine (Acetylcysteine 20%) 4 ml IH [id number] [facility] Last Admin: 01/09/17 13:32 Dose: Not Given Albuterol/Ipratropium (Duoneb 3 Mg/0.5 Mg (3 Ml) Ud) 3 ml IH Q2H PRN PRN Reason: Shortness of Breath Last Admin: 01/06/17 19:34 Dose: 3 ml Albuterol/Ipratropium (Duoneb 3 Mg/0.5 Mg (3 Ml) Ud) 3 ml IH [id number] [facility] Last Admin: 01/09/17 13:32 Dose: Not Given Alprazolam (Xanax) 0.25 mg PO BID PRN; Protocol PRN Reason: Anxiety Stop: 01/09/17 18:01 Last Admin: 01/08/17 22:14 Dose: 0.25 mg Aspirin (Aspirin Chewable) 81 mg PO DAILY [facility] Last Admin: 01/09/17 09:02 Dose: 81 mg Enoxaparin Sodium (Lovenox) 40 mg SC DAILY [facility] PRN Reason: Protocol Last Admin: 01/09/17 09:02 Dose: 40 mg Escitalopram Oxalate (Lexapro) 5 mg PO DAILY [facility] Last Admin: 01/09/17 09:01 Dose: 5 mg Guaifenesin (Mucinex La) 600 mg PO Q6H [facility] Last Admin: 01/09/17 12:09 Dose: 600 mg Meropenem (Merrem Iv 1 Gm Premix) 50 mls @ 100 mls/hr IVPB Q8 [facility] PRN Reason: Protocol Last Admin: 01/09/17 14:29 Dose: 100 mls/hr Nystatin (Nystatin Oral Susp) 5 ml PO QID [facility] Last Admin: 01/09/17 14:29 Dose: 5 ml Pantoprazole Sodium (Protonix Ec Tab) 40 mg PO 0600 [facility] Last Admin: 01/09/17 06:01 Dose: 40 mg Prednisone (Prednisone Tab) 20 mg PO DAILY [facility] Last Admin: 01/09/17 09:02 Dose: 20 mg Pregabalin (Lyrica) 100 mg PO TID [facility] Last Admin: 01/09/17 14:29 Dose: 100 mg Sucralfate (Carafate Oral Susp) 1 gm PO 0600,1600 [facility] Last Admin: 01/09/17 06:01 Dose: 1 gm Tamsulosin HCl (Flomax) 0.8 mg PO DAILY [facility] Last Admin: 01/09/17 09:02 Dose: 0.8 mg Tramadol/Acetaminophen (Ultracet 37.5/325 Mg) 1 tab PO Q12H PRN PRN Reason: Pain, moderate (4-7) Last Admin: 01/08/17 22:14 Dose: 1 tab - Labs Labs: 01/09/17 06:00 01/09/17 06:00 PT 10.4 SECONDS (9.4-12.5) 01/09/17 07:35 INR 0.95 (0.93-1.08) 01/09/17 07:35 APTT 34.0 Seconds (25.1-36.5) 01/09/17 07:35 - Constitutional Appears: No Acute Distress - Eye Exam Eye Exam: Normal appearance - ENT Exam ENT Exam: Mucous Membranes Moist - Neck Exam Neck Exam: Normal Inspection - Respiratory Exam Respiratory Exam: Decreased Breath Sounds, NORMAL BREATHING PATTERN. absent: Rales, Wheezes, Respiratory Distress - Cardiovascular Exam Cardiovascular Exam: +S1, +S2 - GI/Abdominal Exam GI & Abdominal Exam: Soft, Normal Bowel Sounds. absent: Guarding, Tenderness, Rebound - Extremities Exam Extremities Exam: absent: Calf Tenderness, Pedal Edema - Neurological Exam Neurological Exam: Alert, Awake, Oriented x3 - Skin Skin Exam: Dry, Warm Assessment and Plan - Assessment and Plan (Free Text) Assessment: Assessment: Esophageal cancer status post radiation, c/o dyphagia, had esophagram, limited study Pneumonia with cavitary lesion End-stage COPD Anemia, status post blood transfusion Plan: Continue diet as tolerated, on soft, patient was told to chew food well, he has risks for aspiration would benefit from puree diet Continue Protonix On steroid and aspirin Continue Carafate On Lovenox On aspirin On prednisone plan for repeat esophagogram tomorrow a.m., discussed with medical team. Patient nothing by mouth post midnight except meds. Seen and discussed with Dr. Gardner <Maribell Gardner V - Last Filed: 01/09/17 23:35> Objective - Vital Signs/Intake and Output Vital Signs (last 24 hours): Temp Pulse Resp BP Pulse Ox 98.5 F 82 20 133/77 94 L 01/09/17 17:54 01/09/17 22:42 01/09/17 17:54 01/09/17 17:54 01/09/17 06:00 Intake and Output: 01/09/17 01/10/17 18:59 06:59 Intake Total 480 Output Total 600 Balance -120 - Medications Medications: Current Medications Acetaminophen (Tylenol 325mg Tab) 650 mg PO Q6H PRN PRN Reason: Fever >100.4 F Acetylcysteine (Acetylcysteine 20%) 4 ml IH [id number] [facility] Last Admin: 01/09/17 19:41 Dose: 4 ml Albuterol/Ipratropium (Duoneb 3 Mg/0.5 Mg (3 Ml) Ud) 3 ml IH Q2H PRN PRN Reason: Shortness of Breath Last Admin: 01/06/17 19:34 Dose: 3 ml Albuterol/Ipratropium (Duoneb 3 Mg/0.5 Mg (3 Ml) Ud) 3 ml IH [id number] [facility] Last Admin: 01/09/17 19:41 Dose: 3 ml Aspirin (Aspirin Chewable) 81 mg PO DAILY [facility] Last Admin: 01/09/17 09:02 Dose: 81 mg Enoxaparin Sodium (Lovenox) 40 mg SC DAILY [facility] PRN Reason: Protocol Last Admin: 01/09/17 09:02 Dose: 40 mg Escitalopram Oxalate (Lexapro) 5 mg PO DAILY [facility] Last Admin: 01/09/17 09:01 Dose: 5 mg Guaifenesin (Mucinex La) 600 mg PO Q6H [facility] Last Admin: 01/09/17 22:24 Dose: 600 mg Meropenem (Merrem Iv 1 Gm Premix) 50 mls @ 100 mls/hr IVPB Q8 [facility] PRN Reason: Protocol Last Admin: 01/09/17 21:32 Dose: 100 mls/hr Nystatin (Nystatin Oral Susp) 5 ml PO QID [facility] Last Admin: 01/09/17 21:32 Dose: 5 ml Pantoprazole Sodium (Protonix Ec Tab) 40 mg PO 0600 [facility] Last Admin: 01/09/17 06:01 Dose: 40 mg Prednisone (Prednisone Tab) 20 mg PO DAILY [facility] Last Admin: 01/09/17 09:02 Dose: 20 mg Pregabalin (Lyrica) 100 mg PO TID [facility] Last Admin: 01/09/17 17:24 Dose: 100 mg Sucralfate (Carafate Oral Susp) 1 gm PO 0600,1600 [facility] Last Admin: 01/09/17 17:24 Dose: 1 gm Tamsulosin HCl (Flomax) 0.8 mg PO DAILY [facility] Last Admin: 01/09/17 09:02 Dose: 0.8 mg Tramadol/Acetaminophen (Ultracet 37.5/325 Mg) 1 tab PO Q12H PRN PRN Reason: Pain, moderate (4-7) Last Admin: 01/08/17 22:14 Dose: 1 tab - Labs Labs: 01/09/17 06:00 01/09/17 06:00 PT 10.4 SECONDS (9.4-12.5) 01/09/17 07:35 INR 0.95 (0.93-1.08) 01/09/17 07:35 APTT 34.0 Seconds (25.1-36.5) 01/09/17 07:35 Attending/Attestation - Attestation I have personally seen and examined this patient.: Yes I have fully participated in the care of the patient.: Yes I have reviewed all pertinent clinical information, including history, physical exam and plan: Yes Notes (Text): This is an addendum to GI progress report dictated by Ceci Bhardwaj APN.The patient was seen and examined earlier. Medical records, lab studies, imagings were reviewed. Last 24 hours events reviewed. Agreed with the above treatment plan as outlined in Ceci Bhardwaj APN's notes the with the addition of the following Patient was seen and evaluated area patient's is at bedside Plan for an esophagogram tomorrow we will follow-up 01/09/17 23:34
[2017-01-10] MEDS: Acetylcysteine 20% Inhal Soln (4ml) IH SCH ×4 (01:50→19:14)
[2017-01-10] MEDS: Albuterol-Ipratrop 3 mg / 0.5 (3 ml) UD IH SCH ×4 (01:50→19:15)
[2017-01-10] MEDS: guaiFENesin 600 mg ER Tab PO SCH ×4 (05:50→22:15)
[2017-01-10] MEDS: Meropenem IV 1 gm in NS 50 ML IVPB SCH ×2 (05:51→15:02)
[2017-01-10] MEDS: Albuterol-Ipratrop 3 mg / 0.5 (3 ml) UD IH PRN (06:30)
[2017-01-10 06:39] LABS: ALKALINE PHOSPHATASE 89 U/L (38-126); ALT/SGPT 57 U/L (7-56); AST/SGOT 41 U/L (17-59); BILIRUBIN,TOTAL 0.6 mg/dL (0.2-1.3); BLOOD UREA NITROGEN 16 mg/dL (7-21); CALCIUM 9.5 mg/dL (8.4-10.5); CHLORIDE 90 mmol/L (95-110); GFR AFRICAN-AMERICAN > 60; GLUCOSE,RANDOM 91 mg/dL (70-110); PHOSPHOROUS 2.8 mg/dL (2.5-4.5); POTASSIUM 4.2 mmol/L (3.6-5.0); SODIUM 133 mmol/L (132-148); TOTAL PROTEIN 6.3 g/dL (5.8-8.3)
[2017-01-10 06:42] LABS: BASO # 0.02 K/mm3 (0.0-2.0); BASO % 0.2 % (0.0-3.0); EOS # 0.1 (0.0-0.7); EOS % 0.9 % (1.5-5.0); GRAN # 10.56 (1.4-6.5); GRAN % 87.2 % (50.0-68.0); LYMPH # 0.4 (1.2-3.4); LYMPH % 3.6 % (22.0-35.0); MEAN CELL VOLUME 83.7 fl (80.0-105.0); MEAN CORPUSCULAR HEMOGLOBIN 26.1 pg (25.0-35.0); MEAN CORPUSCULAR HGB CONC 31.1 g/dl (31.0-37.0); MEAN PLATELET VOLUME 8.8 fl (7.0-11.0); MONO % 8.1 % (1.0-6.0); PLATELET COUNT 295 10^3/uL (120.0-450.0); RED CELL DISTRIBUTION WIDTH 18.8 % (11.5-14.5); WHITE BLOOD COUNT 12.1 10^3/ul (4.5-11.0)
[2017-01-10 06:46] LABS: CARBON DIOXIDE 37 mmol/L (21-33)
[2017-01-10] MEDS ORDERED: MethylPREDNISolone 40 mg Vial IVP STA (07:04)
[2017-01-10] MEDS: Sucralfate 1 gm/10 ml Oral Susp UD PO SCH ×2 (07:41→17:12)
[2017-01-10 08:59] LABS: NEUTROPHIL 89 % (50.0-70.0)
[2017-01-10 09:00] LABS: ANISOCYTOSIS SLIGHT; MYELOCYTE 1 %; PLATELET ESTIMATE NORMAL (NORMAL); TOXIC GRANULATION 1+
--- NOTE | 2017-01-10 09:39 | CP.PCM.PN ---
Subjective - Date & Time of Evaluation Date of Evaluation: 01/10/17 Time of Evaluation: 09:36 - Subjective Subjective: Heme/Onc Progress Note for Adal Barbosa PGY2 Patient seen and examined at bedside. As per nursing, there were no acute overnight events. This am patient felt short of breath. He was given dose of Solumedrol 40mg IVP as well as his breathing treatment. Patient denies abdominal pain, dysphagia, chest pain, dysuria, nausea, vomiting, diarrhea, numbness/tingling, fever or chills. Objective - Vital Signs/Intake and Output Vital Signs (last 24 hours): Temp Pulse Resp BP Pulse Ox 98.7 F 90 20 157/94 H 94 L 01/10/17 06:00 01/10/17 06:00 01/10/17 06:00 01/10/17 06:00 01/10/17 06:00 Intake and Output: 01/10/17 01/10/17 06:59 18:59 Intake Total 1180 Output Total 850 Balance 330 - Medications Medications: Current Medications Acetaminophen (Tylenol 325mg Tab) 650 mg PO Q6H PRN PRN Reason: Fever >100.4 F Acetylcysteine (Acetylcysteine 20%) 4 ml IH [id number] [facility] Last Admin: 01/10/17 07:20 Dose: 4 ml Albuterol/Ipratropium (Duoneb 3 Mg/0.5 Mg (3 Ml) Ud) 3 ml IH Q2H PRN PRN Reason: Shortness of Breath Last Admin: 01/10/17 06:30 Dose: 3 ml Albuterol/Ipratropium (Duoneb 3 Mg/0.5 Mg (3 Ml) Ud) 3 ml IH [id number] [facility] Last Admin: 01/10/17 07:21 Dose: 3 ml Aspirin (Aspirin Chewable) 81 mg PO DAILY [facility] Last Admin: 01/09/17 09:02 Dose: 81 mg Enoxaparin Sodium (Lovenox) 40 mg SC DAILY [facility] PRN Reason: Protocol Last Admin: 01/09/17 09:02 Dose: 40 mg Escitalopram Oxalate (Lexapro) 5 mg PO DAILY [facility] Last Admin: 01/09/17 09:01 Dose: 5 mg Guaifenesin (Mucinex La) 600 mg PO Q6H [facility] Last Admin: 01/10/17 05:50 Dose: Not Given Meropenem (Merrem Iv 1 Gm Premix) 50 mls @ 100 mls/hr IVPB Q8 [facility] PRN Reason: Protocol Last Admin: 01/10/17 05:51 Dose: 100 mls/hr Nystatin (Nystatin Oral Susp) 5 ml PO QID [facility] Last Admin: 01/09/17 21:32 Dose: 5 ml Pantoprazole Sodium (Protonix Ec Tab) 40 mg PO 0600 [facility] Last Admin: 01/09/17 06:01 Dose: 40 mg Prednisone (Prednisone Tab) 20 mg PO DAILY [facility] Last Admin: 01/09/17 09:02 Dose: 20 mg Pregabalin (Lyrica) 100 mg PO TID [facility] Last Admin: 01/09/17 17:24 Dose: 100 mg Sucralfate (Carafate Oral Susp) 1 gm PO 0600,1600 [facility] Last Admin: 01/10/17 07:41 Dose: Not Given Tamsulosin HCl (Flomax) 0.8 mg PO DAILY [facility] Last Admin: 01/09/17 09:02 Dose: 0.8 mg Tramadol/Acetaminophen (Ultracet 37.5/325 Mg) 1 tab PO Q12H PRN PRN Reason: Pain, moderate (4-7) Last Admin: 01/08/17 22:14 Dose: 1 tab - Labs Labs: 01/10/17 06:15 01/10/17 06:15 PT 10.4 SECONDS (9.4-12.5) 01/09/17 07:35 INR 0.95 (0.93-1.08) 01/09/17 07:35 APTT 34.0 Seconds (25.1-36.5) 01/09/17 07:35 - Constitutional Appears: No Acute Distress - Head Exam Head Exam: ATRAUMATIC, NORMAL INSPECTION, NORMOCEPHALIC - Eye Exam Eye Exam: Normal appearance, PERRL Pupil Exam: NORMAL ACCOMODATION, PERRL - ENT Exam ENT Exam: Mucous Membranes Moist - Respiratory Exam Respiratory Exam: Decreased Breath Sounds, NORMAL BREATHING PATTERN. absent: Rales, Rhonchi, Wheezes - Cardiovascular Exam Cardiovascular Exam: REGULAR RHYTHM, +S1, +S2. absent: Gallop, Rubs, Murmur - GI/Abdominal Exam GI & Abdominal Exam: Soft, Normal Bowel Sounds. absent: Tenderness - Extremities Exam Extremities Exam: Pedal Edema (+ 1 bilaterally) - Neurological Exam Neurological Exam: Alert, Awake, CN II-XII Intact, Oriented x3 - Psychiatric Exam Psychiatric exam: Normal Affect, Normal Mood - Skin Skin Exam: Dry, Warm Assessment and Plan - Assessment and Plan (Free Text) Assessment: This is a 71Y M with past medical history of esophageal cancer status post proton beam radiation, melanoma, basal cell cancer, and COPD who was admitted for RUL pneumonia as well as COPD exacerbation. Patient was seen at [facility] recently and reviewed previous records for comparison. Patient is status post 2 units PRBC. He is planned for repeat esophagram as per GI today. Plan: - Repeat esophagram showed no perforation or aspiration- limited study - Pulmonary reports that patient is on optimal respiratory therapy - Patient will need 3 weeks of Merrem as outpatient for cavitary lesion of lung - Recommendations from pulmonary and GI appreciated as well as Infectious disease - Repeat U/A was negative for UTI - Do not recommend lung biopsy at this time because it can exacerbate patient's lung disease - Patient follows up with oncologist in [place], [place] - Recommend outpatient follow up with Dr. Ferreira Case seen, discussed and reviewed with Dr. Ferreira. Adal Guthrie PGY2
[2017-01-10] MEDS: Pantoprazole 40 mg EC Tab PO SCH (10:56)
[2017-01-10] MEDS ORDERED: Barium Sulfate for Susp 96% w/w 176g Bottle PR ONE (11:12)
--- NOTE | 2017-01-10 11:39 | CP.PCM.PN ---
Subjective - Date & Time of Evaluation Date of Evaluation: 01/10/17 Time of Evaluation: 10:10 - Subjective Subjective: Comfortable in bed, not in distress, afebrile, although still has intermittent bouts of shortness of breath and coughing spells. Objective - Vital Signs/Intake and Output Vital Signs (last 24 hours): Temp Pulse Resp BP Pulse Ox 98.7 F 90 20 157/94 H 94 L 01/10/17 06:00 01/10/17 06:00 01/10/17 06:00 01/10/17 06:00 01/10/17 06:00 Intake and Output: 01/09/17 01/10/17 18:59 06:59 Intake Total 480 1180 Output Total 600 850 Balance -120 330 - Medications Medications: Current Medications Acetaminophen (Tylenol 325mg Tab) 650 mg PO Q6H PRN PRN Reason: Fever >100.4 F Acetylcysteine (Acetylcysteine 20%) 4 ml IH [id number] [facility] Last Admin: 01/10/17 01:50 Dose: 4 ml Albuterol/Ipratropium (Duoneb 3 Mg/0.5 Mg (3 Ml) Ud) 3 ml IH Q2H PRN PRN Reason: Shortness of Breath Last Admin: 01/06/17 19:34 Dose: 3 ml Albuterol/Ipratropium (Duoneb 3 Mg/0.5 Mg (3 Ml) Ud) 3 ml IH [id number] [facility] Last Admin: 01/10/17 01:50 Dose: 3 ml Aspirin (Aspirin Chewable) 81 mg PO DAILY [facility] Last Admin: 01/09/17 09:02 Dose: 81 mg Enoxaparin Sodium (Lovenox) 40 mg SC DAILY [facility] PRN Reason: Protocol Last Admin: 01/09/17 09:02 Dose: 40 mg Escitalopram Oxalate (Lexapro) 5 mg PO DAILY [facility] Last Admin: 01/09/17 09:01 Dose: 5 mg Guaifenesin (Mucinex La) 600 mg PO Q6H [facility] Last Admin: 01/10/17 05:50 Dose: Not Given Meropenem (Merrem Iv 1 Gm Premix) 50 mls @ 100 mls/hr IVPB Q8 [facility] PRN Reason: Protocol Last Admin: 01/10/17 05:51 Dose: 100 mls/hr Nystatin (Nystatin Oral Susp) 5 ml PO QID [facility] Last Admin: 01/09/17 21:32 Dose: 5 ml Pantoprazole Sodium (Protonix Ec Tab) 40 mg PO 0600 [facility] Last Admin: 01/09/17 06:01 Dose: 40 mg Prednisone (Prednisone Tab) 20 mg PO DAILY [facility] Last Admin: 01/09/17 09:02 Dose: 20 mg Pregabalin (Lyrica) 100 mg PO TID [facility] Last Admin: 01/09/17 17:24 Dose: 100 mg Sucralfate (Carafate Oral Susp) 1 gm PO 0600,1600 [facility] Last Admin: 01/09/17 17:24 Dose: 1 gm Tamsulosin HCl (Flomax) 0.8 mg PO DAILY [facility] Last Admin: 01/09/17 09:02 Dose: 0.8 mg Tramadol/Acetaminophen (Ultracet 37.5/325 Mg) 1 tab PO Q12H PRN PRN Reason: Pain, moderate (4-7) Last Admin: 01/08/17 22:14 Dose: 1 tab - Labs Labs: 01/09/17 06:00 01/09/17 06:00 PT 10.4 SECONDS (9.4-12.5) 01/09/17 07:35 INR 0.95 (0.93-1.08) 01/09/17 07:35 APTT 34.0 Seconds (25.1-36.5) 01/09/17 07:35 - Constitutional Appears: Cachectic, Chronically Ill - Head Exam Head Exam: NORMAL INSPECTION - ENT Exam ENT Exam: Mucous Membranes Moist - Neck Exam Neck Exam: absent: Meningismus - Respiratory Exam Respiratory Exam: Decreased Breath Sounds - Cardiovascular Exam Cardiovascular Exam: +S1, +S2 - GI/Abdominal Exam GI & Abdominal Exam: Soft. absent: Tenderness Assessment and Plan - Assessment and Plan (Free Text) Plan: Assessment severe sepsis with respiratory failure from lung cavitary lesion in the right upper lobe - lung pyogenic abscess with Pseudomonas - no evidence of TB end-stage COPD with history of heavy smoking esophageal cancer CAD basal cell CA S/P appendectomy Plan continue Merrem (day 8) based on sensitivities of the Pseudomonas in the sputum cx - will need prolonged therapy - discussed with Dr. Pina will continue to follow clinically overall prognosis is poor
[2017-01-10] MEDS: Nystatin 100,000 Units/ml Oral Susp 5 ml UD PO SCH ×4 (11:49→21:28)
--- NOTE | 2017-01-10 11:49 | RAD ---
PROCEDURE: Esophagram HISTORY: dysphagia, esophageal cancer COMPARISON: TECHNIQUE: A limited esophagram was performed at the bedside. The patient has limited mobility and swallowing function. FINDINGS: There is a cavitary lesion in the right upper lobe. There is no evidence of esophageal obstruction or perforation. There is no aspiration. There is some mucosal thickening and irregularity in the distal esophagus which corresponds to the history of esophageal carcinoma. IMPRESSION: No evidence of perforation or aspiration. The study is limited
[2017-01-10] MEDS: Enoxaparin 40 mg Syringe SC SCH (11:53)
--- NOTE | 2017-01-10 13:48 | CP.PCM.PN ---
<Ceci Bhardwaj - Last Filed: 01/10/17 13:48> Subjective - Date & Time of Evaluation Date of Evaluation: 01/10/17 Time of Evaluation: 12:15 - Subjective Subjective: Seen and examined at the bedside this afternoon, patient does report shortness of breath but currently not in distress, his O2. He went for an esophagogram this morning, denies nausea, vomiting, dysphagia, or abdominal pain. Esophagogram reports reviewed, full report can be seen in [facility], no evidence of perforation, aspiration, does show changes from esophageal cancer with thickening and irregularity,and right upper lung cavitary lesion, limited study. I was asked by the patient is Objective - Vital Signs/Intake and Output Vital Signs (last 24 hours): Temp Pulse Resp BP Pulse Ox 98.7 F 115 H 20 118/70 94 L 01/10/17 06:00 01/10/17 10:00 01/10/17 06:00 01/10/17 10:00 01/10/17 06:00 Intake and Output: 01/10/17 01/10/17 06:59 18:59 Intake Total 1180 Output Total 850 Balance 330 - Medications Medications: Current Medications Acetaminophen (Tylenol 325mg Tab) 650 mg PO Q6H PRN PRN Reason: Fever >100.4 F Acetylcysteine (Acetylcysteine 20%) 4 ml IH [id number] [facility] Last Admin: 01/10/17 07:20 Dose: 4 ml Albuterol/Ipratropium (Duoneb 3 Mg/0.5 Mg (3 Ml) Ud) 3 ml IH Q2H PRN PRN Reason: Shortness of Breath Last Admin: 01/10/17 06:30 Dose: 3 ml Albuterol/Ipratropium (Duoneb 3 Mg/0.5 Mg (3 Ml) Ud) 3 ml IH [id number] [facility] Last Admin: 01/10/17 07:21 Dose: 3 ml Aspirin (Aspirin Chewable) 81 mg PO DAILY [facility] Last Admin: 01/10/17 11:50 Dose: Not Given Enoxaparin Sodium (Lovenox) 40 mg SC DAILY [facility] PRN Reason: Protocol Last Admin: 01/10/17 11:53 Dose: 40 mg Escitalopram Oxalate (Lexapro) 5 mg PO DAILY [facility] Last Admin: 01/10/17 11:50 Dose: Not Given Guaifenesin (Mucinex La) 600 mg PO Q6H [facility] Last Admin: 01/10/17 11:50 Dose: Not Given Meropenem (Merrem Iv 1 Gm Premix) 50 mls @ 100 mls/hr IVPB Q8 [facility] PRN Reason: Protocol Last Admin: 01/10/17 05:51 Dose: 100 mls/hr Nystatin (Nystatin Oral Susp) 5 ml PO QID [facility] Last Admin: 01/10/17 11:49 Dose: Not Given Pantoprazole Sodium (Protonix Ec Tab) 40 mg PO 0600 [facility] Last Admin: 01/10/17 10:56 Dose: Not Given Prednisone (Prednisone Tab) 20 mg PO DAILY [facility] Last Admin: 01/10/17 11:51 Dose: Not Given Pregabalin (Lyrica) 100 mg PO TID [facility] Last Admin: 01/10/17 11:49 Dose: Not Given Sucralfate (Carafate Oral Susp) 1 gm PO 0600,1600 [facility] Last Admin: 01/10/17 07:41 Dose: Not Given Tamsulosin HCl (Flomax) 0.8 mg PO DAILY [facility] Last Admin: 01/10/17 11:50 Dose: Not Given Tramadol/Acetaminophen (Ultracet 37.5/325 Mg) 1 tab PO Q12H PRN PRN Reason: Pain, moderate (4-7) Last Admin: 01/08/17 22:14 Dose: 1 tab - Labs Labs: 01/10/17 06:15 01/10/17 06:15 PT 10.4 SECONDS (9.4-12.5) 01/09/17 07:35 INR 0.95 (0.93-1.08) 01/09/17 07:35 APTT 34.0 Seconds (25.1-36.5) 01/09/17 07:35 - Constitutional Appears: No Acute Distress (easing somewhat is) - Eye Exam Eye Exam: Normal appearance. absent: Scleral icterus - ENT Exam ENT Exam: Mucous Membranes Moist - Respiratory Exam Respiratory Exam: Decreased Breath Sounds, NORMAL BREATHING PATTERN. absent: Respiratory Distress - Cardiovascular Exam Cardiovascular Exam: +S1, +S2 - GI/Abdominal Exam GI & Abdominal Exam: Soft, Normal Bowel Sounds. absent: Guarding, Tenderness, Rebound - Neurological Exam Neurological Exam: Alert, Awake, Oriented x3 - Skin Skin Exam: Dry, Warm Assessment and Plan - Assessment and Plan (Free Text) Assessment: Assessment: Esophageal cancer status post radiation, c/o dyphagia, had esophagram, limited study Pneumonia with cavitary lesion End-stage COPD Anemia, status post blood transfusion Plan: Continue diet as tolerated, on soft, patient was told to chew food well, he has risks for aspiration would benefit from puree diet Continue Protonix On steroid and aspirin Continue Carafate On Lovenox On aspirin On prednisone will require 3 weeks IV antibiotics for cavitary lesion Seen and discussed with Dr. Gardner <Maribell Gardner V - Last Filed: 01/11/17 00:07> Objective - Vital Signs/Intake and Output Vital Signs (last 24 hours): Temp Pulse Resp BP Pulse Ox 98.4 F 96 H 20 121/67 96 01/10/17 16:00 01/10/17 16:00 01/10/17 16:00 01/10/17 16:00 01/10/17 16:00 Intake and Output: 01/10/17 01/11/17 18:59 06:59 Intake Total 360 Balance 360 - Medications Medications: Current Medications Acetaminophen (Tylenol 325mg Tab) 650 mg PO Q6H PRN PRN Reason: Fever >100.4 F Acetylcysteine (Acetylcysteine 20%) 4 ml IH [id number] [facility] Last Admin: 01/10/17 19:14 Dose: 4 ml Albuterol/Ipratropium (Duoneb 3 Mg/0.5 Mg (3 Ml) Ud) 3 ml IH Q2H PRN PRN Reason: Shortness of Breath Last Admin: 01/10/17 06:30 Dose: 3 ml Albuterol/Ipratropium (Duoneb 3 Mg/0.5 Mg (3 Ml) Ud) 3 ml IH [id number] [facility] Last Admin: 01/10/17 19:15 Dose: 3 ml Aspirin (Aspirin Chewable) 81 mg PO DAILY [facility] Last Admin: 01/10/17 11:50 Dose: Not Given Escitalopram Oxalate (Lexapro) 5 mg PO DAILY [facility] Last Admin: 01/10/17 11:50 Dose: Not Given Guaifenesin (Mucinex La) 600 mg PO Q6H [facility] Last Admin: 01/10/17 22:15 Dose: 600 mg Meropenem 1 gm/ Sodium (Chloride) 100 mls @ 100 mls/hr IVPB Q8 [facility] PRN Reason: Protocol Last Admin: 01/10/17 21:53 Dose: 100 mls/hr Montelukast Sodium (Singulair) 10 mg PO HS [facility] Nystatin (Nystatin Oral Susp) 5 ml PO QID [facility] Last Admin: 01/10/17 21:28 Dose: Not Given Pantoprazole Sodium (Protonix Ec Tab) 40 mg PO 0600 [facility] Last Admin: 01/10/17 10:56 Dose: Not Given Prednisone (Prednisone Tab) 20 mg PO DAILY [facility] Last Admin: 01/10/17 11:51 Dose: Not Given Pregabalin (Lyrica) 100 mg PO TID [facility] Last Admin: 01/10/17 17:12 Dose: 100 mg Roflumilast (Daliresp) 500 mcg PO DAILY [facility] Sucralfate (Carafate Oral Susp) 1 gm PO 0600,1600 [facility] Last Admin: 01/10/17 17:12 Dose: 1 gm Tamsulosin HCl (Flomax) 0.8 mg PO DAILY [facility] Last Admin: 01/10/17 11:50 Dose: Not Given Tramadol/Acetaminophen (Ultracet 37.5/325 Mg) 1 tab PO Q12H PRN PRN Reason: Pain, moderate (4-7) Last Admin: 01/08/17 22:14 Dose: 1 tab - Labs Labs: 01/10/17 06:15 01/10/17 06:15 PT 10.4 SECONDS (9.4-12.5) 01/09/17 07:35 INR 0.95 (0.93-1.08) 01/09/17 07:35 APTT 34.0 Seconds (25.1-36.5) 01/09/17 07:35 Attending/Attestation - Attestation I have personally seen and examined this patient.: Yes I have fully participated in the care of the patient.: Yes I have reviewed all pertinent clinical information, including history, physical exam and plan: Yes Notes (Text): This is an addendum to GI progress report dictated by Ceci Bhardwaj APN.The patient was seen and examined earlier. Medical records, lab studies, imagings were reviewed. Last 24 hours events reviewed. Agreed with the above treatment plan as outlined in Ceci Bhardwaj APN's notes the with the addition of the following esophagram was reviewed Abdomen soft no tenderness and that has been advanced 01/11/17 00:03
--- NOTE | 2017-01-10 14:06 | CP.PCM.PN ---
<Félix Sierra - Last Filed: 01/10/17 14:02> Subjective - Date & Time of Evaluation Date of Evaluation: 01/10/17 Time of Evaluation: 14:02 - Subjective Subjective: Patient seen and evaluated at bedside. No acute events overnight reported. Patient indicates he still has trouble breathing. Patient reports he is able to tolerate BiPAP at night but had difficulty last evening. Patient denies chest pain, abdominal pain, nausea, vomiting, fever and chills. Patient is scheduled for repeat esophagram today. Objective - Vital Signs/Intake and Output Vital Signs (last 24 hours): Temp Pulse Resp BP Pulse Ox 98.7 F 115 H 20 118/70 94 L 01/10/17 06:00 01/10/17 10:00 01/10/17 06:00 01/10/17 10:00 01/10/17 06:00 Intake and Output: 01/10/17 01/10/17 06:59 18:59 Intake Total 1180 Output Total 850 Balance 330 - Medications Medications: Current Medications Acetaminophen (Tylenol 325mg Tab) 650 mg PO Q6H PRN PRN Reason: Fever >100.4 F Acetylcysteine (Acetylcysteine 20%) 4 ml IH [id number] [facility] Last Admin: 01/10/17 07:20 Dose: 4 ml Albuterol/Ipratropium (Duoneb 3 Mg/0.5 Mg (3 Ml) Ud) 3 ml IH Q2H PRN PRN Reason: Shortness of Breath Last Admin: 01/10/17 06:30 Dose: 3 ml Albuterol/Ipratropium (Duoneb 3 Mg/0.5 Mg (3 Ml) Ud) 3 ml IH [id number] [facility] Last Admin: 01/10/17 07:21 Dose: 3 ml Aspirin (Aspirin Chewable) 81 mg PO DAILY [facility] Last Admin: 01/10/17 11:50 Dose: Not Given Enoxaparin Sodium (Lovenox) 40 mg SC DAILY [facility] PRN Reason: Protocol Last Admin: 01/10/17 11:53 Dose: 40 mg Escitalopram Oxalate (Lexapro) 5 mg PO DAILY [facility] Last Admin: 01/10/17 11:50 Dose: Not Given Guaifenesin (Mucinex La) 600 mg PO Q6H [facility] Last Admin: 01/10/17 11:50 Dose: Not Given Meropenem (Merrem Iv 1 Gm Premix) 50 mls @ 100 mls/hr IVPB Q8 [facility] PRN Reason: Protocol Last Admin: 01/10/17 05:51 Dose: 100 mls/hr Nystatin (Nystatin Oral Susp) 5 ml PO QID [facility] Last Admin: 01/10/17 11:49 Dose: Not Given Pantoprazole Sodium (Protonix Ec Tab) 40 mg PO 0600 [facility] Last Admin: 01/10/17 10:56 Dose: Not Given Prednisone (Prednisone Tab) 20 mg PO DAILY [facility] Last Admin: 01/10/17 11:51 Dose: Not Given Pregabalin (Lyrica) 100 mg PO TID [facility] Last Admin: 01/10/17 11:49 Dose: Not Given Sucralfate (Carafate Oral Susp) 1 gm PO 0600,1600 [facility] Last Admin: 01/10/17 07:41 Dose: Not Given Tamsulosin HCl (Flomax) 0.8 mg PO DAILY [facility] Last Admin: 01/10/17 11:50 Dose: Not Given Tramadol/Acetaminophen (Ultracet 37.5/325 Mg) 1 tab PO Q12H PRN PRN Reason: Pain, moderate (4-7) Last Admin: 01/08/17 22:14 Dose: 1 tab - Labs Labs: 01/10/17 06:15 01/10/17 06:15 PT 10.4 SECONDS (9.4-12.5) 01/09/17 07:35 INR 0.95 (0.93-1.08) 01/09/17 07:35 APTT 34.0 Seconds (25.1-36.5) 01/09/17 07:35 - Head Exam Head Exam: ATRAUMATIC, NORMAL INSPECTION - Eye Exam Eye Exam: EOMI, PERRL - ENT Exam ENT Exam: Mucous Membranes Moist - Neck Exam Neck Exam: Full ROM - Respiratory Exam Respiratory Exam: Decreased Breath Sounds, NORMAL BREATHING PATTERN - Cardiovascular Exam Cardiovascular Exam: REGULAR RHYTHM, +S1, +S2 - GI/Abdominal Exam GI & Abdominal Exam: Soft, Normal Bowel Sounds - Extremities Exam Extremities Exam: Normal Inspection. absent: Calf Tenderness, Pedal Edema - Back Exam Back Exam: absent: CVA tenderness (L), CVA tenderness (R) - Neurological Exam Neurological Exam: Alert, Awake, CN II-XII Intact, Oriented x3 Additional comments: motor and sensory grossly intact - Psychiatric Exam Psychiatric exam: Normal Affect, Normal Mood - Skin Skin Exam: Dry, Intact, Normal Color, Warm Assessment and Plan - Assessment and Plan (Free Text) Assessment: This is a 71 yo M with PMH of End-Stage COPD, invasive esophageal CA s /p radiation and chemo, and melanoma s/p resection who was recently admitted for COPD exacerbation presents with worsening shortness of breath, cough (with known pseudomonas in sputum) with fevers. Currently treating for HCAP with lung abscess likely 2/2 aspiration and COPD exacerbation. He is being treated for presumed resistant Psuedomonas infection and abscess, and will require 3 weeks total of IV Meropenem. AFB smears negative x3, not TB as per ID, now off precautions. Repeat esophagram scheduled for today. Plan: 1) HCAP with Lung Abscess -likely 2/2 Aspiration given eating without dentures, eating inappropriate diet ; not TB as per ID -remains afebrile; leukocytosis 12.1 -AFB smear x3 negative -Influenza negative; Urine legionella ag negative, Procal 0.40, Urine culture notable for Yeast -CT chest on admit: peripheral infiltrate in the right upper lobe c/w pneumonia with a large abscess or cavity (see full report); CXR yesterday: persistant R lung cavity in apex, resolution of remaining infiltrates, no signs of fluid overload -ID consulted, appreciate all recs; - Merrem 1gm Q8, Rec CT guided bx of lung abscess but as per Pulm and Heme- onc not to be done currently as can worsen current condition; resistant Pseudomonas, needs Merrem 1q8 for 3 weeks total (today day 9) -Pulm consulted: lung abscess likely due to aspiration, unlikely TB, no biopsy given PNA and pt clinical condition, need to r/o fistula -GI following; no EGD to rule out fistula due to high risk for anesthesia, Esophogram today showing limited study but negative -Continue Aspiration precautions -Current Shortness of breath likely baseline for severe COPD, home O2 dependent , no signs of fluid overload on CXR 2) COPD Exacerbation -Taper prednisone as tolerated, down to 20mg daily today -As per Pulm, currently optimized for Esophogram, no further optimization available for this pt -Continue Duonebs/Mucomyst q6H [facility], Duonebs q2H prn 3) Hx of Invasive Esophageal CA -Last round of radiation was 4 weeks ago -Diet: soft foods, encouraged to further chew foods -Heme/onc on consulted - Venofer x1 given, s/p 2 units pRBCs -Esophagram obtained- no obstruction or aspiration, but limited study; as per GI , needs non-portable Esophagram with contrast, not Barium, obtainable now that no longer on precautions for possible TB 4) Back Pain -likely musculoskeletal -Pain control, heating pad to back, PT/OT -Continue to monitor 5) Hx of anxiety/depression -Continue Xanax prn -Continue Lexapro 6) Anemia -likely 2/2 chronic disease -Hgb 11 today, stable will continue to monitor -Heme consulted, s/p 1x dose of Venofer 7) BPH: -Flomax 0.8mg daily Case and plan discussed with attending <Frankie Pina - Last Filed: 01/10/17 15:44> Objective - Vital Signs/Intake and Output Vital Signs (last 24 hours): Temp Pulse Resp BP Pulse Ox 98.7 F 115 H 20 118/70 94 L 01/10/17 06:00 01/10/17 10:00 01/10/17 06:00 01/10/17 10:00 01/10/17 06:00 Intake and Output: 01/10/17 01/10/17 06:59 18:59 Intake Total 1180 Output Total 850 Balance 330 - Medications Medications: Current Medications Acetaminophen (Tylenol 325mg Tab) 650 mg PO Q6H PRN PRN Reason: Fever >100.4 F Acetylcysteine (Acetylcysteine 20%) 4 ml IH [id number] [facility] Last Admin: 01/10/17 14:01 Dose: 4 ml Albuterol/Ipratropium (Duoneb 3 Mg/0.5 Mg (3 Ml) Ud) 3 ml IH Q2H PRN PRN Reason: Shortness of Breath Last Admin: 01/10/17 06:30 Dose: 3 ml Albuterol/Ipratropium (Duoneb 3 Mg/0.5 Mg (3 Ml) Ud) 3 ml IH [id number] [facility] Last Admin: 01/10/17 14:01 Dose: 3 ml Aspirin (Aspirin Chewable) 81 mg PO DAILY [facility] Last Admin: 01/10/17 11:50 Dose: Not Given Enoxaparin Sodium (Lovenox) 40 mg SC DAILY [facility] PRN Reason: Protocol Last Admin: 01/10/17 11:53 Dose: 40 mg Escitalopram Oxalate (Lexapro) 5 mg PO DAILY [facility] Last Admin: 01/10/17 11:50 Dose: Not Given Guaifenesin (Mucinex La) 600 mg PO Q6H [facility] Last Admin: 01/10/17 11:50 Dose: Not Given Meropenem (Merrem Iv 1 Gm Premix) 50 mls @ 100 mls/hr IVPB Q8 [facility] PRN Reason: Protocol Last Admin: 01/10/17 15:02 Dose: 100 mls/hr Nystatin (Nystatin Oral Susp) 5 ml PO QID [facility] Last Admin: 01/10/17 11:49 Dose: Not Given Pantoprazole Sodium (Protonix Ec Tab) 40 mg PO 0600 [facility] Last Admin: 01/10/17 10:56 Dose: Not Given Prednisone (Prednisone Tab) 20 mg PO DAILY [facility] Last Admin: 01/10/17 11:51 Dose: Not Given Pregabalin (Lyrica) 100 mg PO TID [facility] Last Admin: 01/10/17 14:30 Dose: Not Given Sucralfate (Carafate Oral Susp) 1 gm PO 0600,1600 [facility] Last Admin: 01/10/17 07:41 Dose: Not Given Tamsulosin HCl (Flomax) 0.8 mg PO DAILY [facility] Last Admin: 01/10/17 11:50 Dose: Not Given Tramadol/Acetaminophen (Ultracet 37.5/325 Mg) 1 tab PO Q12H PRN PRN Reason: Pain, moderate (4-7) Last Admin: 01/08/17 22:14 Dose: 1 tab - Labs Labs: 01/10/17 06:15 01/10/17 06:15 PT 10.4 SECONDS (9.4-12.5) 01/09/17 07:35 INR 0.95 (0.93-1.08) 01/09/17 07:35 APTT 34.0 Seconds (25.1-36.5) 01/09/17 07:35 Attending/Attestation - Attestation I have personally seen and examined this patient.: Yes I have fully participated in the care of the patient.: Yes I have reviewed all pertinent clinical information, including history, physical exam and plan: Yes Notes (Text): 01/10/17 15:35 71 year old male with past medical history of COPD, esophageal cancer s/p chemotherapy and radiation who presented with worsening shortness of breath. He was found to have HCAP with lung abscess, possibly secondary to aspiration. Sputum culture grew Pseudomonas Aeruginosa. Continue with iv antibiotics, duonebs, and tapering steroids. He will need at least 3 weeks of iv antibiotics as per ID. Picc line was placed. This morning he was short of breath requiring iv solumedrol and breathing treatments, now stating he is feeling better. Pulmonary follow up is requested. GI is following as well. Patient had repeat esophagram study today which was again negative but limited. Continue with soft diet and aspiration precautions. Hemoglobin improved after 2 units of prbc transfusion. Frankie Pina MD Hospitalist.
[2017-01-10] MEDS: Meropenem 1 GM in Sodium Chloride 0.9% 100 ML IVPB SCH (21:53)
[2017-01-11] MEDS: Acetylcysteine 20% Inhal Soln (4ml) IH SCH ×5 (01:31→23:54)
[2017-01-11] MEDS: Albuterol-Ipratrop 3 mg / 0.5 (3 ml) UD IH SCH ×4 (01:32→19:33)
--- NOTE | 2017-01-11 02:24 | PN ---
PULMONARY PROGRESS NOTE DATE: 01/10/2017 REFERRING PHYSICIAN: Dr. Pina. SUBJECTIVE: He is out of bed to chair. This morning, episode noted. Once he came off the BiPAP, he felt very short of breath. Presently, he feels okay, sitting up in a chair, and has some cough. Does have a clear sputum production. No nausea, vomiting, or diarrhea. No leg pain or leg swelling. OBJECTIVE: GENERAL: In no acute distress. VITAL SIGNS: Temperature is 98, heart rate is 96, respiratory rate is 20, blood pressure is 121/67, and pulse ox 96% on 3 L nasal cannula. HEENT: Moist mucous membranes. Crowded airway. Mallampati score is IV. NECK: Supple. No JVD. LUNGS: Have expiratory wheezing. Poor airflow. HEART: S1 and S2. ABDOMEN: Soft and nontender. No organomegaly. EXTREMITIES: There is no edema. NEUROLOGIC: Awake and alert. Follows simple commands. MEDICATIONS: He is on Mucomyst 20% inhaled q.6 hours, aspirin 81 mg daily, Carafate 1 g twice a day, DuoNeb q.2 hours p.r.n. and q.6 hours [id number], Flomax 0.8 mg daily, Lexapro 5 mg daily, Lyrica 100 mg 3 times a day, meropenem 1 g IV q.8 hours, Mucinex LA 600 mg q.6 hours, prednisone 20 mg daily, Protonix 40 mg daily, Tylenol p.r.n. basis, and Ultracet 37.5/325 one tablet q.12 hours p.r.n. LABORATORY DATA: Shows hemoglobin 10.9, hematocrit 35.0, WBC 12.1, and platelet count is 295. Sodium 133, potassium 4.2, chloride 90, bicarbonate is 37, BUN is 16, creatinine 0.5, glucose 91, calcium is 9.5, phosphorus is 2.8, and magnesium 2.0. AST 41, ALT 57, alkaline phosphatase is 89, and albumin is 3.2. Has a repeat esophageal x-ray done today shows no evidence of perforation or aspiration, again study is limited. IMPRESSION AND PLAN: Resolving aspiration pneumonia has a cavity, sputum growing Pseudomonas, obstructive lung disease, obstructive sleep apnea syndrome, esophageal cancer, status post radiation therapy, and may have a component of sleep apnea syndrome. We will add Daliresp 500 mcg daily and Singulair 10 mg daily. Continue BiPAP while sleeping. Continue antibiotics. Continue p.o. steroids. Gastric prophylaxis and deep venous thrombosis prophylaxis. Thank you and we will follow with you. Jesika Srivastava MD
[2017-01-11] MEDS: Meropenem 1 GM in Sodium Chloride 0.9% 100 ML IVPB SCH ×3 (05:23→21:41)
[2017-01-11] MEDS: guaiFENesin 600 mg ER Tab PO SCH ×5 (05:23→23:56)
[2017-01-11] MEDS: Pantoprazole 40 mg EC Tab PO SCH (05:23)
[2017-01-11] MEDS: Sucralfate 1 gm/10 ml Oral Susp UD PO SCH ×2 (05:23→17:36)
[2017-01-11 06:38] LABS: BASO # 0.01 K/mm3 (0.0-2.0); BASO % 0.1 % (0.0-3.0); GRAN # 14.53 (1.4-6.5); GRAN % 92.8 % (50.0-68.0); HEMATOCRIT 34.2 % (42.0-52.0); LYMPH # 0.5 (1.2-3.4); LYMPH % 2.9 % (22.0-35.0); MEAN CELL VOLUME 83.4 fl (80.0-105.0); MEAN CORPUSCULAR HEMOGLOBIN 25.9 pg (25.0-35.0); MEAN PLATELET VOLUME 9.4 fl (7.0-11.0); MONO # 0.7 (0.1-0.6); MONO % 4.2 % (1.0-6.0); RED CELL DISTRIBUTION WIDTH 19.1 % (11.5-14.5); WHITE BLOOD COUNT 15.7 10^3/ul (4.5-11.0)
[2017-01-11 06:50] LABS: ALB/GLOB RATIO 1.1 (1.1-1.8); ALKALINE PHOSPHATASE 80 U/L (38-126); ALT/SGPT 59 U/L (7-56); AST/SGOT 40 U/L (17-59); BILIRUBIN,TOTAL 0.7 mg/dL (0.2-1.3); BLOOD UREA NITROGEN 12 mg/dL (7-21); CALCIUM 9.6 mg/dL (8.4-10.5); CARBON DIOXIDE 38 mmol/L (21-33); CHLORIDE 89 mmol/L (95-110); GFR AFRICAN-AMERICAN > 60; GLUCOSE,RANDOM 123 mg/dL (70-110); PHOSPHOROUS 3.5 mg/dL (2.5-4.5); POTASSIUM 4.4 mmol/L (3.6-5.0); SODIUM 131 mmol/L (132-148); TOTAL PROTEIN 6.3 g/dL (5.8-8.3)
[2017-01-11] MEDS: Nystatin 100,000 Units/ml Oral Susp 5 ml UD PO SCH ×4 (10:10→21:42)
--- NOTE | 2017-01-11 10:30 | CP.PCM.PN ---
Subjective - Date & Time of Evaluation Date of Evaluation: 01/11/17 Time of Evaluation: 10:25 - Subjective Subjective: Heme/Onc Progress Note for Adal Barbosa PGY2 Patient seen and examined at bedside. Spoke with nursing staff who did not report any acute overnight events. Patient was resting in bed comfortably upon examination. He denies shortness of breath, chest pain, nausea/vomiting/diarrhea , dysuria/hematuria, fever or chills. Objective - Vital Signs/Intake and Output Vital Signs (last 24 hours): Temp Pulse Resp BP Pulse Ox 98.8 F 80 22 118/69 96 01/11/17 09:08 01/11/17 09:08 01/11/17 09:08 01/11/17 09:08 01/11/17 09:08 Intake and Output: 01/11/17 01/11/17 06:59 18:59 Intake Total 800 Output Total 300 Balance 500 - Medications Medications: Current Medications Acetaminophen (Tylenol 325mg Tab) 650 mg PO Q6H PRN PRN Reason: Fever >100.4 F Acetylcysteine (Acetylcysteine 20%) 4 ml IH [id number] [facility] Last Admin: 01/11/17 07:55 Dose: 4 ml Albuterol/Ipratropium (Duoneb 3 Mg/0.5 Mg (3 Ml) Ud) 3 ml IH Q2H PRN PRN Reason: Shortness of Breath Last Admin: 01/10/17 06:30 Dose: 3 ml Albuterol/Ipratropium (Duoneb 3 Mg/0.5 Mg (3 Ml) Ud) 3 ml IH [id number] [facility] Last Admin: 01/11/17 07:56 Dose: 3 ml Aspirin (Aspirin Chewable) 81 mg PO DAILY [facility] Last Admin: 01/11/17 10:10 Dose: 81 mg Escitalopram Oxalate (Lexapro) 5 mg PO DAILY [facility] Last Admin: 01/11/17 10:10 Dose: 5 mg Guaifenesin (Mucinex La) 600 mg PO Q6H [facility] Last Admin: 01/11/17 10:14 Dose: 600 mg Meropenem 1 gm/ Sodium (Chloride) 100 mls @ 100 mls/hr IVPB Q8 [facility] PRN Reason: Protocol Last Admin: 01/11/17 05:23 Dose: 100 mls/hr Montelukast Sodium (Singulair) 10 mg PO HS [facility] Nystatin (Nystatin Oral Susp) 5 ml PO QID [facility] Last Admin: 01/11/17 10:10 Dose: 5 ml Pantoprazole Sodium (Protonix Ec Tab) 40 mg PO 0600 [facility] Last Admin: 01/11/17 05:23 Dose: 40 mg Prednisone (Prednisone Tab) 20 mg PO DAILY [facility] Last Admin: 01/11/17 10:10 Dose: 20 mg Pregabalin (Lyrica) 100 mg PO TID [facility] Last Admin: 01/11/17 10:10 Dose: 100 mg Roflumilast (Daliresp) 500 mcg PO DAILY [facility] Last Admin: 01/11/17 10:10 Dose: 500 mcg Sucralfate (Carafate Oral Susp) 1 gm PO 0600,1600 [facility] Last Admin: 01/11/17 05:23 Dose: 1 gm Tamsulosin HCl (Flomax) 0.8 mg PO DAILY [facility] Last Admin: 01/11/17 10:10 Dose: 0.8 mg Tramadol/Acetaminophen (Ultracet 37.5/325 Mg) 1 tab PO Q12H PRN PRN Reason: Pain, moderate (4-7) Last Admin: 01/08/17 22:14 Dose: 1 tab - Labs Labs: 01/11/17 06:00 01/11/17 06:00 PT 10.4 SECONDS (9.4-12.5) 01/09/17 07:35 INR 0.95 (0.93-1.08) 01/09/17 07:35 APTT 34.0 Seconds (25.1-36.5) 01/09/17 07:35 - Constitutional Appears: No Acute Distress - Head Exam Head Exam: ATRAUMATIC, NORMAL INSPECTION, NORMOCEPHALIC - Eye Exam Eye Exam: Normal appearance, PERRL Pupil Exam: PERRL - ENT Exam ENT Exam: Mucous Membranes Moist - Neck Exam Neck Exam: Full ROM - Respiratory Exam Respiratory Exam: Decreased Breath Sounds, Rhonchi (diffuse ), NORMAL BREATHING PATTERN. absent: Rales, Wheezes - Cardiovascular Exam Cardiovascular Exam: REGULAR RHYTHM, +S1, +S2. absent: Gallop, Rubs, Murmur - GI/Abdominal Exam GI & Abdominal Exam: Soft, Normal Bowel Sounds. absent: Rigid, Tenderness, Mass , Rebound - Extremities Exam Extremities Exam: Normal Inspection, Pedal Edema (trace bilaterally ). absent: Calf Tenderness - Neurological Exam Neurological Exam: Alert, Awake, CN II-XII Intact, Normal Gait, Oriented x3 - Psychiatric Exam Psychiatric exam: Normal Affect, Normal Mood - Skin Skin Exam: Dry, Warm Assessment and Plan - Assessment and Plan (Free Text) Assessment: This is a 71Y M with past medical history of esophageal cancer status post proton beam radiation, melanoma, basal cell cancer, and COPD who was admitted for RUL pneumonia as well as COPD exacerbation. Patient was seen at [facility] recently and reviewed previous records for comparison. Patient is status post 2 units PRBC. Plan: - Esophagram showed thickening and irregularity of the esophagus, but no perforation or aspiration seen - Recs appreciated from GI, Pulm and infectious disease - Patient will need Merrem for 3 more weeks for cavitary lung lesion from aspiration pneumonia - Do not recommend biopsy of lesion due to patient's poor lung function - Patient will possibly be d/c to [facility] today - Recommend to follow up with Dr. Ferreira as outpatient - Pt also has oncologist in [place], [place] as well. Case seen, discussed and reviewed with Dr. Ferreira. Adal Guthrie PGY2
--- NOTE | 2017-01-11 10:43 | CP.PCM.PN ---
<Ceci Bhardwaj - Last Filed: 01/11/17 10:43> Subjective - Date & Time of Evaluation Date of Evaluation: 01/11/17 Time of Evaluation: 08:20 - Subjective Subjective: Seen and examined at the bedside earlier today, the patient reports not much shortness of breath today, denies nausea, vomiting, or abdominal pain. Continues to tolerate oral intake. No acute overnight events reported. Objective - Vital Signs/Intake and Output Vital Signs (last 24 hours): Temp Pulse Resp BP Pulse Ox 98.8 F 80 22 118/69 96 01/11/17 09:08 01/11/17 09:08 01/11/17 09:08 01/11/17 09:08 01/11/17 09:08 Intake and Output: 01/11/17 01/11/17 06:59 18:59 Intake Total 800 Output Total 300 Balance 500 - Medications Medications: Current Medications Acetaminophen (Tylenol 325mg Tab) 650 mg PO Q6H PRN PRN Reason: Fever >100.4 F Acetylcysteine (Acetylcysteine 20%) 4 ml [facility] [id number] Last Admin: 01/11/17 07:55 Dose: 4 ml Albuterol/Ipratropium (Duoneb 3 Mg/0.5 Mg (3 Ml) Ud) 3 ml IH Q2H PRN PRN Reason: Shortness of Breath Last Admin: 01/10/17 06:30 Dose: 3 ml Albuterol/Ipratropium (Duoneb 3 Mg/0.5 Mg (3 Ml) Ud) 3 ml [facility] [id number] [facility] Last Admin: 01/11/17 07:56 Dose: 3 ml Aspirin (Aspirin Chewable) 81 mg PO DAILY [facility] Last Admin: 01/10/17 11:50 Dose: Not Given Escitalopram Oxalate (Lexapro) 5 mg PO DAILY [facility] Last Admin: 01/10/17 11:50 Dose: Not Given Guaifenesin (Mucinex La) 600 mg PO Q6H [facility] Last Admin: 01/11/17 05:23 Dose: 600 mg Meropenem 1 gm/ Sodium (Chloride) 100 mls @ 100 mls/hr IVPB Q8 [facility] PRN Reason: Protocol Last Admin: 01/11/17 05:23 Dose: 100 mls/hr Montelukast Sodium (Singulair) 10 mg PO HS [facility] Nystatin (Nystatin Oral Susp) 5 ml PO QID [facility] Last Admin: 01/10/17 21:28 Dose: Not Given Pantoprazole Sodium (Protonix Ec Tab) 40 mg PO 0600 [facility] Last Admin: 01/11/17 05:23 Dose: 40 mg Prednisone (Prednisone Tab) 20 mg PO DAILY [facility] Last Admin: 01/10/17 11:51 Dose: Not Given Pregabalin (Lyrica) 100 mg PO TID [facility] Last Admin: 01/10/17 17:12 Dose: 100 mg Roflumilast (Daliresp) 500 mcg PO DAILY [facility] Sucralfate (Carafate Oral Susp) 1 gm PO 0600,1600 [facility] Last Admin: 01/11/17 05:23 Dose: 1 gm Tamsulosin HCl (Flomax) 0.8 mg PO DAILY [facility] Last Admin: 01/10/17 11:50 Dose: Not Given Tramadol/Acetaminophen (Ultracet 37.5/325 Mg) 1 tab PO Q12H PRN PRN Reason: Pain, moderate (4-7) Last Admin: 01/08/17 22:14 Dose: 1 tab - Labs Labs: 01/11/17 06:00 01/11/17 06:00 PT 10.4 SECONDS (9.4-12.5) 01/09/17 07:35 INR 0.95 (0.93-1.08) 01/09/17 07:35 APTT 34.0 Seconds (25.1-36.5) 01/09/17 07:35 - Constitutional Appears: No Acute Distress - Head Exam Head Exam: NORMOCEPHALIC - Eye Exam Eye Exam: Normal appearance. absent: Scleral icterus - ENT Exam ENT Exam: Mucous Membranes Moist - Neck Exam Neck Exam: Normal Inspection - Respiratory Exam Respiratory Exam: NORMAL BREATHING PATTERN. absent: Respiratory Distress - Cardiovascular Exam Cardiovascular Exam: +S1, +S2 - GI/Abdominal Exam GI & Abdominal Exam: Soft, Normal Bowel Sounds. absent: Guarding, Tenderness, Rebound - Extremities Exam Extremities Exam: absent: Calf Tenderness - Neurological Exam Neurological Exam: Alert, Awake, Oriented x3 - Skin Skin Exam: Dry, Warm Assessment and Plan - Assessment and Plan (Free Text) Assessment: Assessment: Esophageal cancer status post radiation, c/o dyphagia, had esophagram, limited study Pneumonia with cavitary lesion End-stage COPD Anemia, status post blood transfusion Plan: Continue diet as tolerated, on soft, patient was told to chew food well, he has risks for aspiration would benefit from puree diet Continue Protonix On steroid and aspirin Continue Carafate On Lovenox On aspirin On prednisone will require 3 weeks IV antibiotics for cavitary lesion Seen and discussed with Dr. Gardner <Maribell Gardner V - Last Filed: 01/12/17 00:19> Objective - Vital Signs/Intake and Output Vital Signs (last 24 hours): Temp Pulse Resp BP Pulse Ox 97.9 F 118 H 19 103/50 L 92 L 01/11/17 16:00 01/11/17 18:00 01/11/17 16:00 01/11/17 16:00 01/11/17 16:00 - Medications Medications: Current Medications Acetaminophen (Tylenol 325mg Tab) 650 mg PO Q6H PRN PRN Reason: Fever >100.4 F Acetylcysteine (Acetylcysteine 20%) 4 ml IH [id number] [facility] Last Admin: 01/11/17 23:54 Dose: 4 ml Albuterol/Ipratropium (Duoneb 3 Mg/0.5 Mg (3 Ml) Ud) 3 ml IH Q2H PRN PRN Reason: Shortness of Breath Last Admin: 01/11/17 23:54 Dose: 3 ml Albuterol/Ipratropium (Duoneb 3 Mg/0.5 Mg (3 Ml) Ud) 3 ml IH [id number] [facility] Last Admin: 01/11/17 19:33 Dose: 3 ml Aspirin (Aspirin Chewable) 81 mg PO DAILY [facility] Last Admin: 01/11/17 10:10 Dose: 81 mg Escitalopram Oxalate (Lexapro) 5 mg PO DAILY [facility] Last Admin: 01/11/17 10:10 Dose: 5 mg Guaifenesin (Mucinex La) 600 mg PO Q6H [facility] Last Admin: 01/11/17 23:56 Dose: 600 mg Meropenem 1 gm/ Sodium (Chloride) 100 mls @ 100 mls/hr IVPB Q8 [facility] PRN Reason: Protocol Last Admin: 01/11/17 21:41 Dose: 100 mls/hr Montelukast Sodium (Singulair) 10 mg PO HS [facility] Last Admin: 10/27/17 21:42 Dose: 10 mg Nystatin (Nystatin Oral Susp) 5 ml PO QID [facility] Last Admin: 01/11/17 21:42 Dose: Not Given Pantoprazole Sodium (Protonix Ec Tab) 40 mg PO 0600 [facility] Last Admin: 01/11/17 05:23 Dose: 40 mg Prednisone (Prednisone Tab) 20 mg PO DAILY [facility] Last Admin: 01/11/17 10:10 Dose: 20 mg Pregabalin (Lyrica) 100 mg PO TID [facility] Last Admin: 01/11/17 17:37 Dose: 100 mg Roflumilast (Daliresp) 500 mcg PO DAILY [facility] Last Admin: 01/11/17 10:10 Dose: 500 mcg Sucralfate (Carafate Oral Susp) 1 gm PO 0600,1600 [facility] Last Admin: 01/11/17 17:36 Dose: 1 gm Tamsulosin HCl (Flomax) 0.8 mg PO DAILY [facility] Last Admin: 01/11/17 10:10 Dose: 0.8 mg Tramadol/Acetaminophen (Ultracet 37.5/325 Mg) 1 tab PO Q12H PRN PRN Reason: Pain, moderate (4-7) Last Admin: 01/08/17 22:14 Dose: 1 tab - Labs Labs: 01/11/17 06:00 01/11/17 06:00 PT 10.4 SECONDS (9.4-12.5) 01/09/17 07:35 INR 0.95 (0.93-1.08) 01/09/17 07:35 APTT 34.0 Seconds (25.1-36.5) 01/09/17 07:35 Attending/Attestation - Attestation I have personally seen and examined this patient.: Yes I have fully participated in the care of the patient.: Yes I have reviewed all pertinent clinical information, including history, physical exam and plan: Yes Notes (Text): This is an addendum to GI progress report dictated by Ceci Bhardwaj APN.The patient was seen and examined earlier. Medical records, lab studies, imagings were reviewed. Last 24 hours events reviewed. Agreed with the above treatment plan as outlined in Ceci Bhardwaj APN's notes the with the addition of the following last esophagram rreviewed tolerating the diet Abdomen soft no tenderness I continue PPI close follow-up with hemoglobin hematocrit 01/12/17 00:17
--- NOTE | 2017-01-11 12:41 | CP.PCM.PN ---
Subjective - Date & Time of Evaluation Date of Evaluation: 01/11/17 Time of Evaluation: 10:25 - Subjective Subjective: Comfortable, less dyspnea on exertion, no fevers overnight, less cough, no diarrhea, no nausea. Objective - Vital Signs/Intake and Output Vital Signs (last 24 hours): Temp Pulse Resp BP Pulse Ox 98.8 F 80 22 118/69 96 01/11/17 09:08 01/11/17 09:08 01/11/17 09:08 01/11/17 09:08 01/11/17 09:08 Intake and Output: 01/11/17 01/11/17 06:59 18:59 Intake Total 800 Output Total 300 Balance 500 - Medications Medications: Current Medications Acetaminophen (Tylenol 325mg Tab) 650 mg PO Q6H PRN PRN Reason: Fever >100.4 F Acetylcysteine (Acetylcysteine 20%) 4 ml IH [id number] [facility] Last Admin: 01/11/17 07:55 Dose: 4 ml Albuterol/Ipratropium (Duoneb 3 Mg/0.5 Mg (3 Ml) Ud) 3 ml IH Q2H PRN PRN Reason: Shortness of Breath Last Admin: 01/10/17 06:30 Dose: 3 ml Albuterol/Ipratropium (Duoneb 3 Mg/0.5 Mg (3 Ml) Ud) 3 ml IH [id number] [facility] Last Admin: 01/11/17 07:56 Dose: 3 ml Aspirin (Aspirin Chewable) 81 mg PO DAILY [facility] Last Admin: 01/10/17 11:50 Dose: Not Given Escitalopram Oxalate (Lexapro) 5 mg PO DAILY [facility] Last Admin: 01/10/17 11:50 Dose: Not Given Guaifenesin (Mucinex La) 600 mg PO Q6H [facility] Last Admin: 01/11/17 05:23 Dose: 600 mg Meropenem 1 gm/ Sodium (Chloride) 100 mls @ 100 mls/hr IVPB Q8 [facility] PRN Reason: Protocol Last Admin: 01/11/17 05:23 Dose: 100 mls/hr Montelukast Sodium (Singulair) 10 mg PO HS [facility] Nystatin (Nystatin Oral Susp) 5 ml PO QID [facility] Last Admin: 01/10/17 21:28 Dose: Not Given Pantoprazole Sodium (Protonix Ec Tab) 40 mg PO 0600 [facility] Last Admin: 01/11/17 05:23 Dose: 40 mg Prednisone (Prednisone Tab) 20 mg PO DAILY [facility] Last Admin: 01/10/17 11:51 Dose: Not Given Pregabalin (Lyrica) 100 mg PO TID [facility] Last Admin: 01/10/17 17:12 Dose: 100 mg Roflumilast (Daliresp) 500 mcg PO DAILY [facility] Sucralfate (Carafate Oral Susp) 1 gm PO 0600,1600 [facility] Last Admin: 01/11/17 05:23 Dose: 1 gm Tamsulosin HCl (Flomax) 0.8 mg PO DAILY [facility] Last Admin: 01/10/17 11:50 Dose: Not Given Tramadol/Acetaminophen (Ultracet 37.5/325 Mg) 1 tab PO Q12H PRN PRN Reason: Pain, moderate (4-7) Last Admin: 01/08/17 22:14 Dose: 1 tab - Labs Labs: 01/11/17 06:00 01/11/17 06:00 PT 10.4 SECONDS (9.4-12.5) 01/09/17 07:35 INR 0.95 (0.93-1.08) 01/09/17 07:35 APTT 34.0 Seconds (25.1-36.5) 01/09/17 07:35 - Constitutional Appears: Cachectic, Chronically Ill - Head Exam Head Exam: NORMAL INSPECTION - ENT Exam ENT Exam: Mucous Membranes Moist - Neck Exam Neck Exam: absent: Meningismus - Respiratory Exam Respiratory Exam: Decreased Breath Sounds - Cardiovascular Exam Cardiovascular Exam: +S1, +S2 - GI/Abdominal Exam GI & Abdominal Exam: Soft. absent: Tenderness Assessment and Plan - Assessment and Plan (Free Text) Plan: Assessment severe sepsis with respiratory failure from lung cavitary lesion in the right upper lobe - lung pyogenic abscess with Pseudomonas - no evidence of TB end-stage COPD with history of heavy smoking esophageal cancer CAD basal cell CA S/P appendectomy Plan continue Merrem (day 9) based on sensitivities of the Pseudomonas in the sputum cx - will need prolonged therapy (ie. 3-4 weeks of therapy) - discussed with Dr. Pina will continue to follow clinically while the patient is in the hospital overall prognosis is poor
--- NOTE | 2017-01-11 16:17 | CP.PCM.DIS ---
Provider - Provider Date of Admission: 01/02/17 16:14 Attending physician: Frankie Pina MD Primary care physician: Ricardo Ruiz MD Time Spent in preparation of Discharge (in minutes): 35 Hospital Course - Lab Results Lab Results: Micro Results 01/03/17 11:22 Other: Please Indicate Mycobacterial Culture - Preliminary 01/08/17 17:45 Urine,Clean Catch Urine Culture - Final No Growth (<1,000 CFU/ML) 01/05/17 14:45 Other: Please Indicate Mycobacterial Culture - Preliminary 01/04/17 22:53 Other: Please Indicate Mycobacterial Culture - Preliminary 01/03/17 11:19 Sputum Gram Stain - Final 01/03/17 11:19 Sputum Sputum Culture - Final Pseudomonas Aeruginosa Most Recent Lab Values WBC 15.7 10^3/ul (4.5-11.0) H D 01/11/17 06:00 RBC 4.10 10^6/uL (3.5-6.1) 01/11/17 06:00 Hgb 10.6 g/dL (14.0-18.0) L 01/11/17 06:00 Hct 34.2 % (42.0-52.0) L 01/11/17 06:00 MCV 83.4 fl (80.0-105.0) 01/11/17 06:00 MCH 25.9 pg (25.0-35.0) 01/11/17 06:00 MCHC 31.0 g/dl (31.0-37.0) 01/11/17 06:00 RDW 19.1 % (11.5-14.5) H 01/11/17 06:00 Plt Count 305 10^3/uL (120.0-450.0) 01/11/17 06:00 MPV 9.4 fl (7.0-11.0) 01/11/17 06:00 Gran % 92.8 % (50.0-68.0) H 01/11/17 06:00 Lymph % (Auto) 2.9 % (22.0-35.0) L 01/11/17 06:00 [place] % (Auto) 4.2 % (1.0-6.0) 01/11/17 06:00 Eos % (Auto) 0.0 % (1.5-5.0) L 01/11/17 06:00 Baso % (Auto) 0.1 % (0.0-3.0) 01/11/17 06:00 Gran # 14.53 (1.4-6.5) H 01/11/17 06:00 Lymph # 0.5 (1.2-3.4) L 01/11/17 06:00 [place] # 0.7 (0.1-0.6) H 01/11/17 06:00 Eos # 0.0 (0.0-0.7) 01/11/17 06:00 Baso # 0.01 K/mm3 (0.0-2.0) 01/11/17 06:00 Neutrophils % (Manual) 89 % (50.0-70.0) H 01/10/17 06:15 Band Neutrophils % 1 % (0-2) 01/06/17 07:00 Lymphocytes % (Manual) 6 % (22.0-35.0) L 01/10/17 06:15 Monocytes % (Manual) 4 % (1.0-6.0) 01/10/17 06:15 Myelocytes % 1 % 01/10/17 06:15 Toxic Granulation 1+ 01/10/17 06:15 Platelet Evaluation Normal (NORMAL) 01/10/17 06:15 Hypochromasia Slight 01/06/17 07:00 Anisocytosis (manual) Slight 01/10/17 06:15 Retic Count 0.65 % (0.5-1.5) 01/04/17 07:00 PT 10.4 SECONDS (9.4-12.5) 01/09/17 07:35 INR 0.95 (0.93-1.08) 01/09/17 07:35 APTT 34.0 Seconds (25.1-36.5) 01/09/17 07:35 pO2 95 mm/Hg (30-55) H 01/02/17 14:40 VBG pH 7.43 (7.32-7.43) 01/02/17 14:40 VBG pCO2 56.0 (40-60) 01/02/17 14:40 VBG HCO3 37.2 mmol/l (21-28) H 01/02/17 14:40 VBG Total CO2 38.9 mmol.L (22-28) H 01/02/17 14:40 VBG O2 Sat (Calc) 98.6 % (40-65) H 01/02/17 14:40 VBG Base Excess 10.7 mmol/L (0.0-2.0) H 01/02/17 14:40 VBG Potassium 4.4 mmol/L (3.6-5.2) 01/02/17 14:40 Sodium 131.0 mmol/L (132-148) L 01/02/17 14:40 Chloride 96.0 mmol/L (98-107) L 01/02/17 14:40 Glucose 89 mg/dl (75-110) 01/02/17 14:40 Lactate 0.9 mmol/L (0.7-2.1) 01/02/17 14:40 FiO2 21.0 % 01/02/17 14:40 Sodium 131 mmol/L (132-148) L 01/11/17 06:00 Potassium 4.4 mmol/L (3.6-5.0) 01/11/17 06:00 Chloride 89 mmol/L (95-110) L 01/11/17 06:00 Carbon Dioxide 38 mmol/L (21-33) H 01/11/17 06:00 Anion Gap 8 (10-20) L 01/11/17 06:00 BUN 12 mg/dL (7-21) 01/11/17 06:00 Creatinine 0.5 mg/dL (0.8-1.5) L 01/11/17 06:00 Est GFR ( Amer) > 60 01/11/17 06:00 Est GFR (Non-Af Amer) > 60 01/11/17 06:00 Random Glucose 123 mg/dL (70-110) H 01/11/17 06:00 Calcium 9.6 mg/dL (8.4-10.5) 01/11/17 06:00 Phosphorus 3.5 mg/dL (2.5-4.5) 01/11/17 06:00 Magnesium 2.0 mg/dL (1.7-2.2) 01/11/17 06:00 Iron 39 ug/dL (45-180) L 01/04/17 11:00 TIBC 212 ug/dL (261-462) L 01/04/17 11:00 % Saturation 18 % (20-55) L 01/04/17 11:00 Ferritin 117.0 ng/mL 01/04/17 11:00 Total Bilirubin 0.7 mg/dL (0.2-1.3) 01/11/17 06:00 AST 40 U/L (17-59) 01/11/17 06:00 ALT 59 U/L (7-56) H 01/11/17 06:00 Alkaline Phosphatase 80 U/L (38-126) 01/11/17 06:00 Troponin I < 0.01 ng/mL 01/02/17 14:40 NT-Pro-B Natriuret Pep 154 pg/mL (0-450) 01/02/17 14:40 Total Protein 6.3 g/dL (5.8-8.3) 01/11/17 06:00 Albumin 3.3 g/dL (3.0-4.8) 01/11/17 06:00 Globulin 3.0 gm/dL 01/11/17 06:00 Albumin/Globulin Ratio 1.1 (1.1-1.8) 01/11/17 06:00 Carcinoembryonic Ag 3.4 ng/mL (0.0-3.0) H 01/05/17 07:20 CA 19-9 Antigen 100 U/mL (0-37) H 01/05/17 07:20 Vitamin B12 729 pg/mL (239-931) 01/04/17 11:00 RBC Folate 1166 ng/mL RBC (>280) 01/04/17 07:00 Procalcitonin 0.40 NG/ML (0.19-0.49) 01/02/17 14:40 Venous Blood Potassium 4.4 mmol/L (3.6-5.2) 01/02/17 14:40 Urine Color Yellow (YELLOW) 01/09/17 15:09 Urine Appearance Clear (CLEAR) 01/09/17 15:09 Urine pH 8.5 (4.7-8.0) 01/09/17 15:09 Ur Specific [place] 1.015 (1.005-1.035) 01/09/17 15:09 Urine Protein Negative mg/dL (<30 mg/dL) 01/09/17 15:09 Urine Glucose (UA) Negative mg/dL (NEGATIVE) 01/09/17 15:09 Urine Ketones Negative mg/dL (NEGATIVE) 01/09/17 15:09 Urine Blood Negative (NEGATIVE) 01/09/17 15:09 Urine Nitrate Negative (NEGATIVE) 01/09/17 15:09 Urine Bilirubin Negative (NEGATIVE) 01/09/17 15:09 Urine Urobilinogen 0.2 E.U./dL (<1 E.U./dL) 01/09/17 15:09 Ur Leukocyte Esterase Negative Matthew/uL (NEGATIVE) 01/09/17 15:09 Urine RBC Negative /hpf (0-2) 01/02/17 16:00 Urine WBC Negative /hpf (0-6) 01/02/17 16:00 Ur Epithelial Cells 0 - 2 /hpf (0-5) 01/02/17 16:00 Amorphous Sediment Few 01/02/17 16:00 Influenza Typ A,B (EIA) Negative for flu a/b (NEGATIVE) 01/02/17 15:09 Ur L.pneumophila Ag Negative (NEGATIVE) 01/03/17 11:19 Ur Strep pneumoniae Ag Not detected 01/03/17 10:58 TB Test (QFT) Nil 0.06 IU/mL 01/03/17 07:02 TB Test Mitogen - Nil 0.01 IU/mL 01/03/17 07:02 TB Test TB - Nil <0.00 IU/mL 01/03/17 07:02 TB Test (QFT) Indeterminate (Negative) H 01/03/17 07:02 Blood Type B NEGATIVE 01/08/17 11:20 Antibody Screen Negative 01/08/17 11:20 Crossmatch See Detail 01/08/17 11:20 BBK History Checked Patient has bt 01/08/17 11:20 Discharge Exam - Head Exam Head Exam: NORMAL INSPECTION Discharge Plan - Follow Up Plan Condition: CRITICAL Disposition: HOME/ ROUTINE Referrals: Ricardo Ruiz MD [Primary Care Provider] -
--- NOTE | 2017-01-11 17:31 | CP.PCM.PN ---
<Sajan Currie - Last Filed: 01/11/17 17:23> Subjective - Date & Time of Evaluation Date of Evaluation: 01/11/17 Time of Evaluation: 07:30 - Subjective Subjective: IM Progress Note for Hospitalist Service Patient seen and evaluated at bedside. No acute events overnight reported, no acute complaints today. Reports back to baseline level shortness of breath, better as compared to yesterday but otherwise no change. Denies chest pain, abdominal pain, nausea, vomiting, fever and chills. Pending d/c to subacute rehab. Objective - Vital Signs/Intake and Output Vital Signs (last 24 hours): Temp Pulse Resp BP Pulse Ox 98.8 F 80 22 118/69 96 01/11/17 09:08 01/11/17 09:08 01/11/17 09:08 01/11/17 09:08 01/11/17 09:08 Intake and Output: 01/11/17 01/11/17 06:59 18:59 Intake Total 800 Output Total 300 Balance 500 - Medications Medications: Current Medications Acetaminophen (Tylenol 325mg Tab) 650 mg PO Q6H PRN PRN Reason: Fever >100.4 F Acetylcysteine (Acetylcysteine 20%) 4 ml IH [id number] [facility] Last Admin: 01/11/17 14:32 Dose: 4 ml Albuterol/Ipratropium (Duoneb 3 Mg/0.5 Mg (3 Ml) Ud) 3 ml IH Q2H PRN PRN Reason: Shortness of Breath Last Admin: 01/10/17 06:30 Dose: 3 ml Albuterol/Ipratropium (Duoneb 3 Mg/0.5 Mg (3 Ml) Ud) 3 ml IH [id number] [facility] Last Admin: 01/11/17 14:32 Dose: 3 ml Aspirin (Aspirin Chewable) 81 mg PO DAILY [facility] Last Admin: 01/11/17 10:10 Dose: 81 mg Escitalopram Oxalate (Lexapro) 5 mg PO DAILY [facility] Last Admin: 01/11/17 10:10 Dose: 5 mg Guaifenesin (Mucinex La) 600 mg PO Q6H [facility] Last Admin: 01/11/17 10:14 Dose: 600 mg Meropenem 1 gm/ Sodium (Chloride) 100 mls @ 100 mls/hr IVPB Q8 [facility] PRN Reason: Protocol Last Admin: 01/11/17 13:53 Dose: 100 mls/hr Montelukast Sodium (Singulair) 10 mg PO HS [facility] Nystatin (Nystatin Oral Susp) 5 ml PO QID [facility] Last Admin: 01/11/17 13:29 Dose: 5 ml Pantoprazole Sodium (Protonix Ec Tab) 40 mg PO 0600 [facility] Last Admin: 01/11/17 05:23 Dose: 40 mg Prednisone (Prednisone Tab) 20 mg PO DAILY [facility] Last Admin: 01/11/17 10:10 Dose: 20 mg Pregabalin (Lyrica) 100 mg PO TID [facility] Last Admin: 01/11/17 13:29 Dose: 100 mg Roflumilast (Daliresp) 500 mcg PO DAILY [facility] Last Admin: 01/11/17 10:10 Dose: 500 mcg Sucralfate (Carafate Oral Susp) 1 gm PO 0600,1600 [facility] Last Admin: 01/11/17 05:23 Dose: 1 gm Tamsulosin HCl (Flomax) 0.8 mg PO DAILY [facility] Last Admin: 01/11/17 10:10 Dose: 0.8 mg Tramadol/Acetaminophen (Ultracet 37.5/325 Mg) 1 tab PO Q12H PRN PRN Reason: Pain, moderate (4-7) Last Admin: 01/08/17 22:14 Dose: 1 tab - Labs Labs: 01/11/17 06:00 01/11/17 06:00 PT 10.4 SECONDS (9.4-12.5) 01/09/17 07:35 INR 0.95 (0.93-1.08) 01/09/17 07:35 APTT 34.0 Seconds (25.1-36.5) 01/09/17 07:35 - Additional Findings Additional findings: - Constitutional Appears: Non-toxic, No Acute Distress, Chronically Ill - Head Exam Head Exam: ATRAUMATIC, NORMAL INSPECTION, NORMOCEPHALIC - Eye Exam Eye Exam: EOMI, Normal appearance. absent: Conjunctival injection, Scleral icterus Pupil Exam: absent: Irregular, Unequal - ENT Exam ENT Exam: Mucous Membranes Moist - Neck Exam Neck Exam: Full ROM, Trachea midline, No auscultatable stridor - Respiratory Exam Respiratory Exam: Decreased Breath Sounds (moderate-severely decreased breath sounds in all goff, unchanged from prior exams), Prolonged Expiratory Phase. absent: Accessory Muscle Use, Chest Wall Tenderness, Clear to Ausculation Bilateral, Rales, Rhonchi, Wheezes, Respiratory Distress, Stridor - Cardiovascular Exam Cardiovascular Exam: REGULAR RHYTHM, RRR, +S1, +S2. absent: Bradycardia, Tachycardia, Irregular Rhythm, JVD, +S4 - GI/Abdominal Exam GI & Abdominal Exam: Soft, Normal Bowel Sounds. absent: Distended, Firm, Rigid , Tenderness - Extremities Exam Extremities Exam: Full ROM, Pedal Edema (+1-2 pedal edema in bilateral LE, extending from feet to mid-shaw). absent: Calf Tenderness, Joint Swelling - Neurological Exam Neurological Exam: Alert, Awake, Oriented x3, Moving all extremities spontaneously, unwitnessed gait but able to transition from lying supine to sitting at edge of bed without difficulty or assistance - Psychiatric Exam Psychiatric exam: Normal Affect, Normal Mood - Skin Skin Exam: Dry, Intact, Normal Color, Warm Assessment and Plan - Assessment and Plan (Free Text) Assessment: This is a 71 yo M with PMH of End-Stage COPD, invasive esophageal CA s /p radiation and chemo, and melanoma s/p resection who was recently admitted for COPD exacerbation presents with worsening shortness of breath, cough (with known pseudomonas in sputum) with fevers. Currently treating for HCAP with lung abscess likely 2/2 aspiration and COPD exacerbation. He is being treated for presumed resistant Psuedomonas infection and abscess, and will require 3 weeks total of IV Meropenem. AFB smears negative x3, not TB as per ID, now off precautions. Pending d/c to sub acute rehab. Plan: 1) HCAP with Lung Abscess -likely 2/2 Aspiration given eating without dentures, eating inappropriate diet ; not TB as per ID -remains afebrile; leukocytosis 15.7 today -AFB smear x3 negative -Influenza negative; Urine legionella ag negative, Procal 0.40, Urine culture notable for Yeast -CT chest on admit: peripheral infiltrate in the right upper lobe c/w pneumonia with a large abscess or cavity (see full report); CXR yesterday: persistant R lung cavity in apex, resolution of remaining infiltrates, no signs of fluid overload -ID consulted, appreciate all recs; Merrem 1gm Q8 for 3 weeks total (today day 10), Rec CT guided bx of lung abscess but as per Pulm and Heme-onc not to be done currently as can worsen current condition -Pulm consulted: lung abscess likely due to aspiration, unlikely TB, no biopsy given PNA and pt clinical condition -GI following; no EGD to rule out fistula due to high risk for anesthesia, repeat Esophagram negative for aspiration or obstruction (limited study again) -Continue Aspiration precautions -Current Shortness of breath likely baseline for severe COPD, home O2 dependent , no signs of fluid overload on CXR 2) COPD Exacerbation -Taper prednisone as tolerated, down to 20mg daily today -Continue Duonebs/Mucomyst q6H [facility], Duonebs q2H prn 3) Hx of Invasive Esophageal CA -Last round of radiation was 4-5 weeks ago -Diet: soft foods -Heme/onc on consulted - Venofer x1 given, s/p 2 units pRBCs transfused, Hgb increased appropriately, no further need for transfusion at this time -Esophagram obtained- no obstruction or aspiration, but limited study; repeat esophagram similar 4) Back Pain -likely musculoskeletal -Pain control, heating pad to back, PT/OT -Continue to monitor 5) Hx of anxiety/depression -Continue Xanax prn -Continue Lexapro 6) Anemia -likely 2/2 chronic disease -Hgb remains stable in the 10's, 10.6 today, baseline is 8-9 as per charting -Heme consulted, appreciate all recs 7) BPH: -Flomax 0.8mg daily Dispo: Remote-telemetry, pending d/c to sub-acute rehab, pending 11 more days of IV Merrem as per ID FEN: Soft diet, no IVF Access: Peripheral IVs, PICC line Consults: Pulm, GI, ID, PT Ppx: Protonix for GI, Lovenox for DVT Patient seen, reviewed, and discussed with attending, Dr. Pina. <Frankie Pina - Last Filed: 01/11/17 17:40> Objective - Vital Signs/Intake and Output Vital Signs (last 24 hours): Temp Pulse Resp BP Pulse Ox 98.8 F 80 22 118/69 96 01/11/17 09:08 01/11/17 09:08 01/11/17 09:08 01/11/17 09:08 01/11/17 09:08 Intake and Output: 01/11/17 01/11/17 06:59 18:59 Intake Total 800 Output Total 300 Balance 500 - Medications Medications: Current Medications Acetaminophen (Tylenol 325mg Tab) 650 mg PO Q6H PRN PRN Reason: Fever >100.4 F Acetylcysteine (Acetylcysteine 20%) 4 ml IH [id number] [facility] Last Admin: 01/11/17 14:32 Dose: 4 ml Albuterol/Ipratropium (Duoneb 3 Mg/0.5 Mg (3 Ml) Ud) 3 ml IH Q2H PRN PRN Reason: Shortness of Breath Last Admin: 01/10/17 06:30 Dose: 3 ml Albuterol/Ipratropium (Duoneb 3 Mg/0.5 Mg (3 Ml) Ud) 3 ml IH [id number] [facility] Last Admin: 01/11/17 14:32 Dose: 3 ml Aspirin (Aspirin Chewable) 81 mg PO DAILY [facility] Last Admin: 01/11/17 10:10 Dose: 81 mg Escitalopram Oxalate (Lexapro) 5 mg PO DAILY [facility] Last Admin: 01/11/17 10:10 Dose: 5 mg Guaifenesin (Mucinex La) 600 mg PO Q6H [facility] Last Admin: 01/11/17 10:14 Dose: 600 mg Meropenem 1 gm/ Sodium (Chloride) 100 mls @ 100 mls/hr IVPB Q8 [facility] PRN Reason: Protocol Last Admin: 01/11/17 13:53 Dose: 100 mls/hr Montelukast Sodium (Singulair) 10 mg PO HS [facility] Nystatin (Nystatin Oral Susp) 5 ml PO QID [facility] Last Admin: 01/11/17 13:29 Dose: 5 ml Pantoprazole Sodium (Protonix Ec Tab) 40 mg PO 0600 [facility] Last Admin: 01/11/17 05:23 Dose: 40 mg Prednisone (Prednisone Tab) 20 mg PO DAILY [facility] Last Admin: 01/11/17 10:10 Dose: 20 mg Pregabalin (Lyrica) 100 mg PO TID [facility] Last Admin: 01/11/17 13:29 Dose: 100 mg Roflumilast (Daliresp) 500 mcg PO DAILY [facility] Last Admin: 01/11/17 10:10 Dose: 500 mcg Sucralfate (Carafate Oral Susp) 1 gm PO 0600,1600 [facility] Last Admin: 01/11/17 05:23 Dose: 1 gm Tamsulosin HCl (Flomax) 0.8 mg PO DAILY [facility] Last Admin: 01/11/17 10:10 Dose: 0.8 mg Tramadol/Acetaminophen (Ultracet 37.5/325 Mg) 1 tab PO Q12H PRN PRN Reason: Pain, moderate (4-7) Last Admin: 01/08/17 22:14 Dose: 1 tab - Labs Labs: 01/11/17 06:00 01/11/17 06:00 PT 10.4 SECONDS (9.4-12.5) 01/09/17 07:35 INR 0.95 (0.93-1.08) 01/09/17 07:35 APTT 34.0 Seconds (25.1-36.5) 01/09/17 07:35 Attending/Attestation - Attestation I have personally seen and examined this patient.: Yes I have fully participated in the care of the patient.: Yes I have reviewed all pertinent clinical information, including history, physical exam and plan: Yes Notes (Text): 01/11/17 17:34 71 year old male with past medical history of COPD, esophageal cancer s/p chemotherapy and radiation who presented with worsening shortness of breath. He was found to have HCAP with lung abscess, possibly secondary to aspiration. Sputum culture grew Pseudomonas Aeruginosa. Continue with iv antibiotics, duonebs, and tapering steroids. He will need at least 2-3 weeks of iv antibiotics as per ID. Picc line was placed. He had espophagram studies x 2 which were limited studies but negative. Continue with soft diet and aspiration precautions. Hemoglobin improved after 2 units of prbc transfusion. He is pending transfer to subacute rehab possibly tomorrow. Frankie Pina MD Hospitalist.
--- NOTE | 2017-01-11 20:42 | PN ---
DATE: 01/11/2017 PULMONARY PROGRESS NOTE REFERRING PHYSICIAN: Dr. Jesika Gómez SUBJECTIVE: He is out of bed to chair. Night was unremarkable. Did not use noninvasive ventilation. Had short of breath with exertion. Cough is improved. No nausea, no vomiting, no diarrhea, leg pain or leg swelling. PHYSICAL EXAMINATION GENERAL: In no acute distress. VITAL SIGNS: Temperature is 98, heart rate is 80, respiratory rate is 20, blood pressure 118/69, pulse ox 96% on 3 liters nasal cannula. HEENT: Moist mucous membrane. Crowded airway. NECK: Supple. No JVD. LUNGS: Scattered crackles, rhonchi and wheezing. Prolonged expiratory phase. HEART: S1 and S2. ABDOMEN: Soft and nontender. No organomegaly. EXTREMITIES: There is no edema. NEUROLOGIC: Awake, alert. Follows simple commands. MEDICATIONS: He is on Mucomyst 20% inhaled q. 6 hours, aspirin 81 mg daily, Carafate 1 g twice a day, Daliresp 500 mcg daily, DuoNeb q. 2 hours p.r.n. and q. 6 hours round the clock, Flomax 0.8 mg daily, Lexapro 5 mg daily, Lyrica 100 mg 3 times a day, meropenem 1 g IV q. 8 hours, Mucinex LA 600 mg q. 6 hours, nystatin orally q.i.d., prednisone 20 mg daily, Protonix 40 mg daily, Singulair 10 mg daily, Tylenol p.r.n., Ultracet 37.5/325 1 tab q. 12 hours p.r.n. LABORATORY DATA: Shows hemoglobin 10.6, hematocrit 34.2, WBC 15.7, and platelet count is 305. Sodium 131, potassium 4.4, chloride 89, bicarbonate is 38, BUN is 12, creatinine 0.5, calcium 9.6, phosphorus is 3.5, and magnesium 2.0. AST 40, ALT 59, alkaline phosphatase is 80, and albumin is 3.3. ASSESSMENT AND PLAN: Resolving aspiration pneumonia still have open cavity, has a Pseudomonas in the sputum, obstructive lung disease, obstructive sleep apnea syndrome, esophageal cancer, status post radiation therapy, and may have a component of sleep apnea syndrome. Case discussed with Dr. Ferreira in detail. I like to see the patient go to [facility] type services where I can follow the patient and readjust medication especially prednisone and see how long he will need antibiotics or seem like because of insurance issue cannot go to [facility]. So of course, we will benefit subacute therapy. We will need follow up x-ray which showed the stability of cavitary lesion in the right upper lobe. Aspiration precaution. We will need further workup to rule out. There is no esophageal perforation or fistula. Thank you and we will follow with you. Jesika Srivastava MD
[2017-01-11] MEDS: Albuterol-Ipratrop 3 mg / 0.5 (3 ml) UD IH PRN (23:54)
[2017-01-12] MEDS: Acetylcysteine 20% Inhal Soln (4ml) IH SCH ×3 (01:39→13:59)
[2017-01-12] MEDS: Albuterol-Ipratrop 3 mg / 0.5 (3 ml) UD IH SCH ×3 (01:39→13:59)
[2017-01-12] MEDS: Sucralfate 1 gm/10 ml Oral Susp UD PO SCH (05:51)
[2017-01-12] MEDS: Meropenem 1 GM in Sodium Chloride 0.9% 100 ML IVPB SCH ×2 (05:52→13:53)
[2017-01-12] MEDS: Pantoprazole 40 mg EC Tab PO SCH (05:53)
[2017-01-12] MEDS: guaiFENesin 600 mg ER Tab PO SCH ×2 (05:53→10:14)
[2017-01-12 09:03] LABS: BASO # 0.01 K/mm3 (0.0-2.0); BASO % 0.1 % (0.0-3.0); EOS # 0.1 (0.0-0.7); EOS % 0.5 % (1.5-5.0); GRAN # 15.94 (1.4-6.5); GRAN % 90.7 % (50.0-68.0); HEMATOCRIT 34.9 % (42.0-52.0); LYMPH # 0.4 (1.2-3.4); LYMPH % 2.4 % (22.0-35.0); MEAN CELL VOLUME 83.1 fl (80.0-105.0); MEAN CORPUSCULAR HEMOGLOBIN 26.2 pg (25.0-35.0); MEAN CORPUSCULAR HGB CONC 31.5 g/dl (31.0-37.0); MEAN PLATELET VOLUME 8.7 fl (7.0-11.0); MONO # 1.1 (0.1-0.6); MONO % 6.3 % (1.0-6.0); RED CELL DISTRIBUTION WIDTH 19.3 % (11.5-14.5); WHITE BLOOD COUNT 17.6 10^3/ul (4.5-11.0)
[2017-01-12 09:15] LABS: ALB/GLOB RATIO 0.9 (1.1-1.8); ALKALINE PHOSPHATASE 86 U/L (38-126); ALT/SGPT 51 U/L (7-56); AST/SGOT 35 U/L (17-59); BILIRUBIN,TOTAL 0.7 mg/dL (0.2-1.3); BLOOD UREA NITROGEN 15 mg/dL (7-21); CALCIUM 9.9 mg/dL (8.4-10.5); CARBON DIOXIDE 38 mmol/L (21-33); CHLORIDE 91 mmol/L (98-107); GFR AFRICAN-AMERICAN > 60; GLUCOSE,RANDOM 96 mg/dL (70-110); MAGNESIUM 1.9 mg/dL (1.7-2.2); PHOSPHOROUS 2.8 mg/dL (2.5-4.5); POTASSIUM 4.3 mmol/L (3.6-5.0); SODIUM 134 mmol/L (132-148); TOTAL PROTEIN 6.5 g/dL (5.8-8.3)
[2017-01-12] MEDS: Nystatin 100,000 Units/ml Oral Susp 5 ml UD PO SCH ×2 (10:02→13:53)
--- NOTE | 2017-01-12 15:09 | PN ---
DATE: 01/12/2017 This is [facility] visit on the medical floor. For Dr. Ferreira. SUBJECTIVE: The patient is a 71-year-old male seen sitting up in a chair with oxygen on waiting for transfer to subacute rehab facility in [place], [place] with the patient otherwise resting comfortably in no acute distress this visit. He is known to suffer from pneumonia, COPD, history of esophageal cancer, now for continuation of antibiotics in a subacute rehab facility as per Dr. Stephens's recommendation, Infectious Disease travel consultant for pseudomonas pyogenic abscess cavitary lesion. He also was admitted with severe sepsis and respiratory failure, which is now slowly improving. OBJECTIVE: VITAL SIGNS: Temperature 99.1, pulse 107, respirations 22, blood pressure 107/64, and pulse oximetry 95%. HEENT: Unremarkable. NECK: Supple. HEART: Regular rate. LUNGS: Normal decreased breath sounds. Occasional rhonchi. Oxygen is on. ABDOMEN: Soft and nontender. EXTREMITIES: No edema. SKIN: Warm, dry, and clear. NEUROLOGIC: Awake, alert, and oriented x3. LABORATORY DATA: The patient's labs were done to include a white blood cell count of 17.6; he is on steroids. Hemoglobin of 11.0, hematocrit 34.9, and platelet count of 335,000 with a chem metabolic panel showing a chloride of 91, carbon dioxide of 38 with a creatinine of 0.5. He did have a CA 19-9 test done showing value of 100 with a CEA value of 3.4 done 3 days prior. The patient's tuberculosis testing including the QFT are indeterminate with other testing negative. However, on 01/03/2017, he had pseudomonas aeruginosa and yeast growing out of his sputum culture. The patient did have esophageal x-ray done on 01/10/2017. It was read as no evidence of perforation or aspiration. Study was limited with a cavitary lesion noted in the right upper lobe. No evidence of esophageal structure perforation. No aspiration, with some mucosal thickening and irregularity in the distal esophagus, which corresponds to history of esophageal cancer. ASSESSMENT: For this patient is that of right upper lobe pneumonia with cavitary lesion, pseudomonas positive culture, history of cancer of the esophagus, status post prothrombin treatment, severe sepsis with respiratory failure resolved, end-stage chronic obstructive pulmonary disease, coronary artery disease, and history of basal cell carcinoma. PLAN: Plan for this patient after conversation with doctor is to continue with Dr. Stephens, Infectious Disease travel consultant's recommendations to continue meropenem day 9 of approximately 3 to 4 weeks of therapy, for which he is to go to a rehab facility once he is accepted and a bed is available. We will continue his present medical regimen with followup in the office with Dr. Ferreira in approximately 2 weeks' time or earlier with the prognosis for this patient guarded. We will monitor clinically and with labs. Abhijeet Vigil MD
--- NOTE | 2017-01-12 16:19 | CP.PCM.DIS ---
<ROSINA WEBSTER - Last Filed: 01/12/17 16:15> Provider - Provider Date of Admission: 01/02/17 16:14 Attending physician: Frankie Pina MD Primary care physician: Ricardo Ruiz MD Consults: Heme/Onc: Hanna Pulm: Carola ID: [email or web address] GI: Kendra Time Spent in preparation of Discharge (in minutes): 45 Hospital Course - Lab Results Lab Results: Micro Results 01/03/17 11:22 Other: Please Indicate Mycobacterial Culture - Preliminary 01/08/17 17:45 Urine,Clean Catch Urine Culture - Final No Growth (<1,000 CFU/ML) 01/05/17 14:45 Other: Please Indicate Mycobacterial Culture - Preliminary 01/04/17 22:53 Other: Please Indicate Mycobacterial Culture - Preliminary 01/03/17 11:19 Sputum Gram Stain - Final 01/03/17 11:19 Sputum Sputum Culture - Final Pseudomonas Aeruginosa Most Recent Lab Values WBC 17.6 10^3/ul (4.5-11.0) H 01/12/17 08:49 RBC 4.20 10^6/uL (3.5-6.1) 01/12/17 08:49 Hgb 11.0 g/dL (14.0-18.0) L 01/12/17 08:49 Hct 34.9 % (42.0-52.0) L 01/12/17 08:49 MCV 83.1 fl (80.0-105.0) 01/12/17 08:49 MCH 26.2 pg (25.0-35.0) 01/12/17 08:49 MCHC 31.5 g/dl (31.0-37.0) 01/12/17 08:49 RDW 19.3 % (11.5-14.5) H 01/12/17 08:49 Plt Count 335 10^3/uL (120.0-450.0) 01/12/17 08:49 MPV 8.7 fl (7.0-11.0) 01/12/17 08:49 Gran % 90.7 % (50.0-68.0) H 01/12/17 08:49 Lymph % (Auto) 2.4 % (22.0-35.0) L 01/12/17 08:49 [place] % (Auto) 6.3 % (1.0-6.0) H 01/12/17 08:49 Eos % (Auto) 0.5 % (1.5-5.0) L 01/12/17 08:49 Baso % (Auto) 0.1 % (0.0-3.0) 01/12/17 08:49 Gran # 15.94 (1.4-6.5) H 01/12/17 08:49 Lymph # 0.4 (1.2-3.4) L 01/12/17 08:49 [place] # 1.1 (0.1-0.6) H 01/12/17 08:49 Eos # 0.1 (0.0-0.7) 01/12/17 08:49 Baso # 0.01 K/mm3 (0.0-2.0) 01/12/17 08:49 Neutrophils % (Manual) 89 % (50.0-70.0) H 01/10/17 06:15 Band Neutrophils % 1 % (0-2) 01/06/17 07:00 Lymphocytes % (Manual) 6 % (22.0-35.0) L 01/10/17 06:15 Monocytes % (Manual) 4 % (1.0-6.0) 01/10/17 06:15 Myelocytes % 1 % 01/10/17 06:15 Toxic Granulation 1+ 01/10/17 06:15 Platelet Evaluation Normal (NORMAL) 01/10/17 06:15 Hypochromasia Slight 01/06/17 07:00 Anisocytosis (manual) Slight 01/10/17 06:15 Retic Count 0.65 % (0.5-1.5) 01/04/17 07:00 PT 10.4 SECONDS (9.4-12.5) 01/09/17 07:35 INR 0.95 (0.93-1.08) 01/09/17 07:35 APTT 34.0 Seconds (25.1-36.5) 01/09/17 07:35 pO2 95 mm/Hg (30-55) H 01/02/17 14:40 VBG pH 7.43 (7.32-7.43) 01/02/17 14:40 VBG pCO2 56.0 (40-60) 01/02/17 14:40 VBG HCO3 37.2 mmol/l (21-28) H 01/02/17 14:40 VBG Total CO2 38.9 mmol.L (22-28) H 01/02/17 14:40 VBG O2 Sat (Calc) 98.6 % (40-65) H 01/02/17 14:40 VBG Base Excess 10.7 mmol/L (0.0-2.0) H 01/02/17 14:40 VBG Potassium 4.4 mmol/L (3.6-5.2) 01/02/17 14:40 Sodium 131.0 mmol/L (132-148) L 01/02/17 14:40 Chloride 96.0 mmol/L (98-107) L 01/02/17 14:40 Glucose 89 mg/dl (75-110) 01/02/17 14:40 Lactate 0.9 mmol/L (0.7-2.1) 01/02/17 14:40 FiO2 21.0 % 01/02/17 14:40 Sodium 134 mmol/L (132-148) 01/12/17 08:49 Potassium 4.3 mmol/L (3.6-5.0) 01/12/17 08:49 Chloride 91 mmol/L (98-107) L 01/12/17 08:49 Carbon Dioxide 38 mmol/L (21-33) H 01/12/17 08:49 Anion Gap 9 (10-20) L 01/12/17 08:49 BUN 15 mg/dL (7-21) 01/12/17 08:49 Creatinine 0.5 mg/dL (0.8-1.5) L 01/12/17 08:49 Est GFR ( Amer) > 60 01/12/17 08:49 Est GFR (Non-Af Amer) > 60 01/12/17 08:49 Random Glucose 96 mg/dL (70-110) 01/12/17 08:49 Calcium 9.9 mg/dL (8.4-10.5) 01/12/17 08:49 Phosphorus 2.8 mg/dL (2.5-4.5) 01/12/17 08:49 Magnesium 1.9 mg/dL (1.7-2.2) 01/12/17 08:49 Iron 39 ug/dL (45-180) L 01/04/17 11:00 TIBC 212 ug/dL (261-462) L 01/04/17 11:00 % Saturation 18 % (20-55) L 01/04/17 11:00 Ferritin 117.0 ng/mL 01/04/17 11:00 Total Bilirubin 0.7 mg/dL (0.2-1.3) 01/12/17 08:49 AST 35 U/L (17-59) 01/12/17 08:49 ALT 51 U/L (7-56) 01/12/17 08:49 Alkaline Phosphatase 86 U/L (38-126) 01/12/17 08:49 Troponin I < 0.01 ng/mL 01/02/17 14:40 NT-Pro-B Natriuret Pep 154 pg/mL (0-450) 01/02/17 14:40 Total Protein 6.5 g/dL (5.8-8.3) 01/12/17 08:49 Albumin 3.1 g/dL (3.0-4.8) 01/12/17 08:49 Globulin 3.4 gm/dL 01/12/17 08:49 Albumin/Globulin Ratio 0.9 (1.1-1.8) L 01/12/17 08:49 Carcinoembryonic Ag 3.4 ng/mL (0.0-3.0) H 01/05/17 07:20 CA 19-9 Antigen 100 U/mL (0-37) H 01/05/17 07:20 Vitamin B12 729 pg/mL (239-931) 01/04/17 11:00 RBC Folate 1166 ng/mL RBC (>280) 01/04/17 07:00 Procalcitonin 0.40 NG/ML (0.19-0.49) 01/02/17 14:40 Venous Blood Potassium 4.4 mmol/L (3.6-5.2) 01/02/17 14:40 Urine Color Yellow (YELLOW) 01/09/17 15:09 Urine Appearance Clear (CLEAR) 01/09/17 15:09 Urine pH 8.5 (4.7-8.0) 01/09/17 15:09 Ur Specific [place] 1.015 (1.005-1.035) 01/09/17 15:09 Urine Protein Negative mg/dL (<30 mg/dL) 01/09/17 15:09 Urine Glucose (UA) Negative mg/dL (NEGATIVE) 01/09/17 15:09 Urine Ketones Negative mg/dL (NEGATIVE) 01/09/17 15:09 Urine Blood Negative (NEGATIVE) 01/09/17 15:09 Urine Nitrate Negative (NEGATIVE) 01/09/17 15:09 Urine Bilirubin Negative (NEGATIVE) 01/09/17 15:09 Urine Urobilinogen 0.2 E.U./dL (<1 E.U./dL) 01/09/17 15:09 Ur Leukocyte Esterase Negative Matthew/uL (NEGATIVE) 01/09/17 15:09 Urine RBC Negative /hpf (0-2) 01/02/17 16:00 Urine WBC Negative /hpf (0-6) 01/02/17 16:00 Ur Epithelial Cells 0 - 2 /hpf (0-5) 01/02/17 16:00 Amorphous Sediment Few 01/02/17 16:00 Influenza Typ A,B (EIA) Negative for flu a/b (NEGATIVE) 01/02/17 15:09 Ur L.pneumophila Ag Negative (NEGATIVE) 01/03/17 11:19 Ur Strep pneumoniae Ag Not detected 01/03/17 10:58 TB Test (QFT) Nil 0.06 IU/mL 01/03/17 07:02 TB Test Mitogen - Nil 0.01 IU/mL 01/03/17 07:02 TB Test TB - Nil <0.00 IU/mL 01/03/17 07:02 TB Test (QFT) Indeterminate (Negative) H 01/03/17 07:02 Blood Type B NEGATIVE 01/08/17 11:20 Antibody Screen Negative 01/08/17 11:20 Crossmatch See Detail 01/08/17 11:20 BBK History Checked Patient has bt 01/08/17 11:20 - Hospital Course Hospital Course: Patient is a 71 year old male with past medical history of End-Stage COPD, invasive esophageal CA and melanoma who was recently admitted for COPD exacerbation presented with worsening shortness of breath, cough with fevers. Patient was discharged home on Saturday12/31/16. States that Saturday evening, breathing and cough was getting worse. On Saturday he was having worsening of symptoms with fever. Took ibuprofen with minimal relief. States that he uses 2- 3L O2 at home. In the ED, labs and imaging were obtained. Pt was febrile at 103.1. Labs were significant for leukocytosis, anemia, and negative flu. CXR showed interval increasing diffuse pleural based patchy coalescing opacities. CT chest showed peripheral infiltrate in the right upper lobe c/w pneumonia with a large abscess or cavity. Pt was admitted for evaluation and treatment for hospital acquired pneumonia with lung abscess likely secondary to aspiration and COPD exacerbation. Sputum cultures were positive for pseudomonas aeruginosa and urine was positive for yeast. TB was ruled out via quantiferon and sputum culture. Pt was transfused 2 units of pRBC and given venofer x1 due to anemia, which stablized hgb. Pulmonlogy, ID, and heme-onc were consulted. Per pulmonology, lung abscess was likely due to aspiration. ID recommended CT guided biopsy of the lung abscess. However, as per pulm and heme/onc biopsy should not be done currently as it could worsen current condition. GI was consulted for history of invasive esophageal CA. Esophogram x2 was obtained due to concern of fistula formation, however both showed no obstruction or aspiration. EGD was not performed due to high risk of anesthesia. Pt was placed on tapering steroids and nebulized treatment for COPD exacerbation, in which he tolerated well. It was determined, per ID, that patient would need 2-3 weeks of IV abx, thus PICC line was placed. Today, patient was seen and examined at bedside. Pt denied any acute overnight events. Pt states that breathing has steadily improved. Hgb was stable and WBC downtrended. Pt was discharged to [facility] , for further stabilization, rehabilitation and continued IV abx. Pt was advised to take his medications as prescribed and follow up as an outpatient once discharged from [facility]. Discharge Exam - Head Exam Head Exam: NORMAL INSPECTION - Eye Exam Eye Exam: EOMI, PERRL - ENT Exam ENT Exam: Mucous Membranes Moist - Neck Exam Neck exam: Full Rom - Respiratory Exam Respiratory Exam: Clear to PA & Lateral. absent: Accessory Muscle Use, Rales, Rhonchi, Wheezes, Respiratory Distress - Cardiovascular Exam Cardiovascular Exam: RRR, +S1, +S2. absent: Diastolic murmur, Gallop, Rubs, Systolic Murmur - GI/Abdominal Exam GI & Abdominal Exam: Normal Bowel Sounds. absent: Distended, Guarding, Rebound , Soft, Tenderness - Neurological Exam Neurological exam: Alert, Oriented x3 - Psychiatric Exam Psychiatric exam: Normal Affect, Normal Mood - Skin Skin Exam: Dry, Intact, Normal Color, Warm Discharge Plan - Follow Up Plan Condition: CRITICAL Disposition: TRANSF TO SNF Instructions: Peripherally Inserted Central Catheters and Midline Catheters (DC ), COPD (Chronic Obstructive Pulmonary Disease) (DC), Pneumonia (DC) Additional Instructions: TRANSFER TO SUB ACUTE FACILITY, CONTINUE TAKING PRESCRIBED MEDICATIONS AND IV ANTIBIOTICS Referrals: Ricardo Ruiz MD [Primary Care Provider] - <Frankie Pina - Last Filed: 01/12/17 17:34> Provider - Provider Date of Admission: 01/02/17 16:14 Attending physician: Frankie Pina MD Primary care physician: Ricardo Ruiz MD Hospital Course - Lab Results Lab Results: Micro Results 01/03/17 11:22 Other: Please Indicate Mycobacterial Culture - Preliminary 01/08/17 17:45 Urine,Clean Catch Urine Culture - Final No Growth (<1,000 CFU/ML) 01/05/17 14:45 Other: Please Indicate Mycobacterial Culture - Preliminary 01/04/17 22:53 Other: Please Indicate Mycobacterial Culture - Preliminary 01/03/17 11:19 Sputum Gram Stain - Final 01/03/17 11:19 Sputum Sputum Culture - Final Pseudomonas Aeruginosa Most Recent Lab Values WBC 17.6 10^3/ul (4.5-11.0) H 01/12/17 08:49 RBC 4.20 10^6/uL (3.5-6.1) 01/12/17 08:49 Hgb 11.0 g/dL (14.0-18.0) L 01/12/17 08:49 Hct 34.9 % (42.0-52.0) L 01/12/17 08:49 MCV 83.1 fl (80.0-105.0) 01/12/17 08:49 MCH 26.2 pg (25.0-35.0) 01/12/17 08:49 MCHC 31.5 g/dl (31.0-37.0) 01/12/17 08:49 RDW 19.3 % (11.5-14.5) H 01/12/17 08:49 Plt Count 335 10^3/uL (120.0-450.0) 01/12/17 08:49 MPV 8.7 fl (7.0-11.0) 01/12/17 08:49 Gran % 90.7 % (50.0-68.0) H 01/12/17 08:49 Lymph % (Auto) 2.4 % (22.0-35.0) L 01/12/17 08:49 [place] % (Auto) 6.3 % (1.0-6.0) H 01/12/17 08:49 Eos % (Auto) 0.5 % (1.5-5.0) L 01/12/17 08:49 Baso % (Auto) 0.1 % (0.0-3.0) 01/12/17 08:49 Gran # 15.94 (1.4-6.5) H 01/12/17 08:49 Lymph # 0.4 (1.2-3.4) L 01/12/17 08:49 [place] # 1.1 (0.1-0.6) H 01/12/17 08:49 Eos # 0.1 (0.0-0.7) 01/12/17 08:49 Baso # 0.01 K/mm3 (0.0-2.0) 01/12/17 08:49 Neutrophils % (Manual) 89 % (50.0-70.0) H 01/10/17 06:15 Band Neutrophils % 1 % (0-2) 01/06/17 07:00 Lymphocytes % (Manual) 6 % (22.0-35.0) L 01/10/17 06:15 Monocytes % (Manual) 4 % (1.0-6.0) 01/10/17 06:15 Myelocytes % 1 % 01/10/17 06:15 Toxic Granulation 1+ 01/10/17 06:15 Platelet Evaluation Normal (NORMAL) 01/10/17 06:15 Hypochromasia Slight 01/06/17 07:00 Anisocytosis (manual) Slight 01/10/17 06:15 Retic Count 0.65 % (0.5-1.5) 01/04/17 07:00 PT 10.4 SECONDS (9.4-12.5) 01/09/17 07:35 INR 0.95 (0.93-1.08) 01/09/17 07:35 APTT 34.0 Seconds (25.1-36.5) 01/09/17 07:35 pO2 95 mm/Hg (30-55) H 01/02/17 14:40 VBG pH 7.43 (7.32-7.43) 01/02/17 14:40 VBG pCO2 56.0 (40-60) 01/02/17 14:40 VBG HCO3 37.2 mmol/l (21-28) H 01/02/17 14:40 VBG Total CO2 38.9 mmol.L (22-28) H 01/02/17 14:40 VBG O2 Sat (Calc) 98.6 % (40-65) H 01/02/17 14:40 VBG Base Excess 10.7 mmol/L (0.0-2.0) H 01/02/17 14:40 VBG Potassium 4.4 mmol/L (3.6-5.2) 01/02/17 14:40 Sodium 131.0 mmol/L (132-148) L 01/02/17 14:40 Chloride 96.0 mmol/L (98-107) L 01/02/17 14:40 Glucose 89 mg/dl (75-110) 01/02/17 14:40 Lactate 0.9 mmol/L (0.7-2.1) 01/02/17 14:40 FiO2 21.0 % 01/02/17 14:40 Sodium 134 mmol/L (132-148) 01/12/17 08:49 Potassium 4.3 mmol/L (3.6-5.0) 01/12/17 08:49 Chloride 91 mmol/L (98-107) L 01/12/17 08:49 Carbon Dioxide 38 mmol/L (21-33) H 01/12/17 08:49 Anion Gap 9 (10-20) L 01/12/17 08:49 BUN 15 mg/dL (7-21) 01/12/17 08:49 Creatinine 0.5 mg/dL (0.8-1.5) L 01/12/17 08:49 Est GFR ( Amer) > 60 01/12/17 08:49 Est GFR (Non-Af Amer) > 60 01/12/17 08:49 Random Glucose 96 mg/dL (70-110) 01/12/17 08:49 Calcium 9.9 mg/dL (8.4-10.5) 01/12/17 08:49 Phosphorus 2.8 mg/dL (2.5-4.5) 01/12/17 08:49 Magnesium 1.9 mg/dL (1.7-2.2) 01/12/17 08:49 Iron 39 ug/dL (45-180) L 01/04/17 11:00 TIBC 212 ug/dL (261-462) L 01/04/17 11:00 % Saturation 18 % (20-55) L 01/04/17 11:00 Ferritin 117.0 ng/mL 01/04/17 11:00 Total Bilirubin 0.7 mg/dL (0.2-1.3) 01/12/17 08:49 AST 35 U/L (17-59) 01/12/17 08:49 ALT 51 U/L (7-56) 01/12/17 08:49 Alkaline Phosphatase 86 U/L (38-126) 01/12/17 08:49 Troponin I < 0.01 ng/mL 01/02/17 14:40 NT-Pro-B Natriuret Pep 154 pg/mL (0-450) 01/02/17 14:40 Total Protein 6.5 g/dL (5.8-8.3) 01/12/17 08:49 Albumin 3.1 g/dL (3.0-4.8) 01/12/17 08:49 Globulin 3.4 gm/dL 01/12/17 08:49 Albumin/Globulin Ratio 0.9 (1.1-1.8) L 01/12/17 08:49 Carcinoembryonic Ag 3.4 ng/mL (0.0-3.0) H 01/05/17 07:20 CA 19-9 Antigen 100 U/mL (0-37) H 01/05/17 07:20 Vitamin B12 729 pg/mL (239-931) 01/04/17 11:00 RBC Folate 1166 ng/mL RBC (>280) 01/04/17 07:00 Procalcitonin 0.40 NG/ML (0.19-0.49) 01/02/17 14:40 Venous Blood Potassium 4.4 mmol/L (3.6-5.2) 01/02/17 14:40 Urine Color Yellow (YELLOW) 01/09/17 15:09 Urine Appearance Clear (CLEAR) 01/09/17 15:09 Urine pH 8.5 (4.7-8.0) 01/09/17 15:09 Ur Specific [place] 1.015 (1.005-1.035) 01/09/17 15:09 Urine Protein Negative mg/dL (<30 mg/dL) 01/09/17 15:09 Urine Glucose (UA) Negative mg/dL (NEGATIVE) 01/09/17 15:09 Urine Ketones Negative mg/dL (NEGATIVE) 01/09/17 15:09 Urine Blood Negative (NEGATIVE) 01/09/17 15:09 Urine Nitrate Negative (NEGATIVE) 01/09/17 15:09 Urine Bilirubin Negative (NEGATIVE) 01/09/17 15:09 Urine Urobilinogen 0.2 E.U./dL (<1 E.U./dL) 01/09/17 15:09 Ur Leukocyte Esterase Negative Matthew/uL (NEGATIVE) 01/09/17 15:09 Urine RBC Negative /hpf (0-2) 01/02/17 16:00 Urine WBC Negative /hpf (0-6) 01/02/17 16:00 Ur Epithelial Cells 0 - 2 /hpf (0-5) 01/02/17 16:00 Amorphous Sediment Few 01/02/17 16:00 Influenza Typ A,B (EIA) Negative for flu a/b (NEGATIVE) 01/02/17 15:09 Ur L.pneumophila Ag Negative (NEGATIVE) 01/03/17 11:19 Ur Strep pneumoniae Ag Not detected 01/03/17 10:58 TB Test (QFT) Nil 0.06 IU/mL 01/03/17 07:02 TB Test Mitogen - Nil 0.01 IU/mL 01/03/17 07:02 TB Test TB - Nil <0.00 IU/mL 01/03/17 07:02 TB Test (QFT) Indeterminate (Negative) H 01/03/17 07:02 Blood Type B NEGATIVE 01/08/17 11:20 Antibody Screen Negative 01/08/17 11:20 Crossmatch See Detail 01/08/17 11:20 BBK History Checked Patient has bt 01/08/17 11:20 Attending/Attestation - Attestation I have personally seen and examined this patient.: Yes I have fully participated in the care of the patient.: Yes I have reviewed all pertinent clinical information, including history, physical exam and plan: Yes Notes (Text): 01/12/17 17:29 71 year old male with past medical history of COPD, esophageal cancer s/p chemotherapy and radiation who presented with worsening shortness of breath. He was found to have HCAP with lung abscess, possibly secondary to aspiration. Sputum culture grew Pseudomonas Aeruginosa. He was seen by ID and pulmonary. He was on duonebs, steroids and iv antibiotics. Picc line was placed for mcfp iv antibiotics. He had espophagram studies x 2 which were limited studies but negative. Continue with soft diet and aspiration precautions. Hemoglobin improved after 2 units of prbc transfusion. He has chronic leukocytosis, perhaps from steroids. He is being transferred to subacute rehab possibly today. Follow up with pmd and pulmonary. Follow up with GI and oncologist. Frankie Pina MD Hospitalist.
[2017-01-12 18:42] VITALS: BP 128/63; PULSE 92; RESP 20; TEMP 98.4; O2SAT 101
--- NOTE | 2017-01-12 23:53 | PN ---
PULMONARY PROGRESS NOTE DATE: 01/12/2017 REFERRING PHYSICIAN: Dr. Jesika Gómez. SUBJECTIVE: The patient is sitting up in the chair. is at the bedside. Night was unremarkable. For few hours, used BiPAP. Breathing is improved, still has cough and sputum production. No nausea or vomiting. No diarrhea. No leg pain or leg swelling. OBJECTIVE: GENERAL: No acute distress. VITAL SIGNS: Temperature is 98, heart rate is 109, respiratory rate is 20, blood pressure is 107/60 and pulse oximetry 95% on 2 L nasal cannula. HEENT: Moist mucous membrane. No ulcer or thrush noted. NECK: Supple. No JVD. LUNGS: Has poor airflow, prolonged expiratory phase with some wheezing. HEART: S1 and S2. ABDOMEN: Soft and nontender. No organomegaly. EXTREMITIES: There is no edema. NEUROLOGIC: Awake, alert and follow simple commands. MEDICATIONS: Reviewed and no new changes in medication reported since yesterday. LABORATORY DATA: Reviewed, shows hemoglobin 11.0, hematocrit 34.9, WBC 17.6 and platelet count is 335. Sodium 134, potassium 4.3, chloride 91, bicarbonate 38, BUN 15, creatinine 0.5, glucose 96, calcium 9.9, phosphorus 2.8 and magnesium 1.9. AST 35, ALT 51, alk phos is 86, and albumin is 3.1. IMPRESSION AND PLAN: Resolving respiration pneumonia, still has cavity, Pseudomonas in sputum, obstructive lung disease, may have sleep apnea syndrome, esophageal cancer status post radiation therapy, activities of daily living dysfunction. Spoke to the patient's at the bedside. All the questions answered. Taper off steroid slowly. Singulair and Daliresp added yesterday. Also an antihistamine as an outpatient. Encourage sleep study as an outpatient. Gastric and deep venous prophylaxis. Complete antibiotics as per Infectious Diseases. Spoke to in detail that the patient does need a followup CT to assure the stability of cavitary lesion. Thank you, and we will follow with you. Jesika Srivastava MD
--- NOTE | 2017-01-13 01:38 | PN ---
DATE: 01/12/2017 SUBJECTIVE: The patient was seen early this morning in 371, bed 2. The patient is in bed, in no acute distress, nontoxic on exam. PHYSICAL EXAMINATION: VITAL SIGNS: Temperature is , blood pressure is 120/60, respiratory rate of 20, heart rate of 92. HEENT: Unremarkable. NECK: Supple. LUNGS: Have decreased breath sounds. HEART: Exam is normal S1 and S2. ABDOMEN: Examination is soft. LABORATORY DATA: Reveals a white count of 17,600, hemoglobin 11, platelets of 335. Chemistries reveals a BUN of 15, creatinine of 0.5. Urinalysis is noted and serology is noted and microbiology reveals the sputum was Pseudomonas. ASSESSMENT AND PLAN: A 71-year-old male with severe sepsis and lung cavity with Pseudomonas lung pyogenic abscess. No evidence of tuberculosis in the patient with end-stage chronic obstructive lung disease, history of esophageal cancer, on meropenem. Will need prolonged antibiotic therapy. Repeat imaging and long-term prognosis is poor for this patient with end-stage chronic obstructive pulmonary disease. Kwame Horta MD
== END 2017-01-12 16:12 | disposition home or self-care (01) | DRG 871 ==
LOC: ED 14:31 → ERH 16:14 → 2RNO 16:55 → 3RSO 01-10 12:15
PROVIDERS: ADMIT Internal Medicine; ATTEND Internal Medicine
PROC: 30233N1 Transfusion of Nonautologous Red Blood Cells into Peripheral Vein, Percutaneous Approach (ICD-10-PCS; principal; 2017-01-08)
PROC: 02HV33Z Insertion of Infusion Device into Superior Vena Cava, Percutaneous Approach (ICD-10-PCS; 2017-01-09)
DX: A41.9 Sepsis, unspecified organism (principal); J69.0 Pneumonitis due to inhalation of food and vomit; J85.1 Abscess of lung with pneumonia; J96.11 Chronic respiratory failure with hypoxia; N18.6 End stage renal disease; Z99.81 Dependence on supplemental oxygen; D50.9 Iron deficiency anemia, unspecified; F17.200 Nicotine dependence, unspecified, uncomplicated; J44.1 Chronic obstructive pulmonary disease with (acute) exacerbation; F40.240 Claustrophobia; G47.33 Obstructive sleep apnea (adult) (pediatric); I25.10 Atherosclerotic heart disease of native coronary artery without angina pectoris; Z85.01 Personal history of malignant neoplasm of esophagus; R65.20 Severe sepsis without septic shock; Z85.820 Personal history of malignant melanoma of skin; Z86.19 Personal history of other infectious and parasitic diseases; Y95 Nosocomial condition; Z66 Do not resuscitate; Z78.9 Other specified health status; Z79.82 Long term (current) use of aspirin; Z79.899 Other long term (current) drug therapy; Z90.49 Acquired absence of other specified parts of digestive tract; Z92.21 Personal history of antineoplastic chemotherapy; Z92.3 Personal history of irradiation; M19.90 Unspecified osteoarthritis, unspecified site; F41.9 Anxiety disorder, unspecified; M25.511 Pain in right shoulder; R40.2412 Glasgow coma scale score 13-15, at arrival to emergency department; Z98.42 Cataract extraction status, left eye; Z98.41 Cataract extraction status, right eye; M54.9 Dorsalgia, unspecified; Z85.828 Personal history of other malignant neoplasm of skin

== ENCOUNTER 2017-03-03 14:47 | Inpatient (IN) | payer OTHER, MEDICARE ==
[2017-03-03] MEDS ORDERED: Albuterol-Ipratrop 3 mg / 0.5 (3 ml) UD ONE (14:58)
[2017-03-03] MEDS: Albuterol-Ipratrop 3 mg / 0.5 (3 ml) UD IH SCH ×4 (15:00→20:06)
[2017-03-03] MEDS ORDERED: Magnesium Sulfate 2 GM in Sodium Chloride 0.9% 100 ML IVPB STA (15:02)
[2017-03-03 15:03] VITALS: BMI 17.7
[2017-03-03 15:18] LABS: VENOUS BLOOD GAS BASE EXCESS 4.9 mmol/L (0.0-2.0); VENOUS BLOOD PH 7.33 (7.32-7.43)
[2017-03-03] MEDS ORDERED: Cefepime IV 2 gm in NS 2 GM/100 ML BAG IVPB ONE (15:19)
[2017-03-03] MEDS ORDERED: Vancomycin 1gm in NS 250ml 1 GM/250 ML BAG IVPB STA (15:19)
[2017-03-03] MEDS ORDERED: metroNIDAZOLE IV 500 mg/100 ml 500 MG/100 ML BAG IVPB STA (15:20)
[2017-03-03] MEDS ORDERED: Sodium Chloride 0.9% 1,000 ML IV STA ×2 (15:25→16:40)
[2017-03-03 15:27] LABS: BASO # 0.01 K/mm3 (0.0-2.0); EOS # 0.1 (0.0-0.7); EOS % 0.2 % (1.5-5.0); GRAN # 19.44 (1.4-6.5); GRAN % 90.7 % (50.0-68.0); HEMATOCRIT 39.3 % (42.0-52.0); LYMPH # 0.8 (1.2-3.4); LYMPH % 3.9 % (22.0-35.0); MEAN CELL VOLUME 86.6 fl (80.0-105.0); MEAN CORPUSCULAR HEMOGLOBIN 27.5 pg (25.0-35.0); MEAN CORPUSCULAR HGB CONC 31.8 g/dl (31.0-37.0); MEAN PLATELET VOLUME 9.4 fl (7.0-11.0); MONO # 1.1 (0.1-0.6); MONO % 5.2 % (1.0-6.0); PLATELET COUNT 283 10^3/uL (120.0-450.0); RED CELL DISTRIBUTION WIDTH 18.7 % (11.5-14.5); WHITE BLOOD COUNT 21.4 10^3/ul (4.5-11.0)
[2017-03-03 15:38] LABS: ALB/GLOB RATIO 1.3 (1.1-1.8); ALKALINE PHOSPHATASE 71 U/L (38-126); ALT/SGPT 37 U/L (7-56); AST/SGOT 26 U/L (17-59); BILIRUBIN,TOTAL 0.8 mg/dL (0.2-1.3); BLOOD UREA NITROGEN 19 mg/dL (7-21); CALCIUM 10.5 mg/dL (8.4-10.5); CARBON DIOXIDE 30 mmol/L (21-33); CHLORIDE 98 mmol/L (98-107); GFR AFRICAN-AMERICAN > 60; GLUCOSE,RANDOM 91 mg/dL (70-110); POTASSIUM 3.7 mmol/L (3.6-5.0); SODIUM 138 mmol/L (132-148); TOTAL PROTEIN 6.8 g/dL (5.8-8.3)
[2017-03-03 15:44] LABS: INR 0.9 (0.93-1.08); PARTIAL THROMBOPLASTIN TIME 29.6 Seconds (25.1-36.5)
--- NOTE | 2017-03-03 15:51 | RAD ---
HISTORY: sob COMPARISON: 01/07/2017 FINDINGS: LUNGS: There has been improvement in the cavitary lesion in the right lung apex. On the previous exam the wall of the cavity was much thicker. This measures 5.5 cm in diameter. The lungs are otherwise clear PLEURA: No significant pleural effusion identified, no pneumothorax apparent. CARDIOVASCULAR: Normal. OSSEOUS STRUCTURES: No significant abnormalities. VISUALIZED UPPER ABDOMEN: Normal. OTHER FINDINGS: None. IMPRESSION: There has been improvement in the cavitary lesion in the right lung apex. On the previous exam the wall of the cavity was much thicker. This measures 5.5 cm in diameter. The lungs are otherwise clear
[2017-03-03 16:04] LABS: TROPONIN I < 0.01 ng/mL
--- NOTE | 2017-03-03 16:07 | ED PDOC ---
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 Patient had recent admission and d/c 2016 after being diagnosed with COPD/Pneumonia with lung abscess. Patient went to rehab center for 2 weeks. Patient was d/c past 2 weeks. Still taking Leviquin daily. Today patient presents respiratory distress after possible aspiration event at breakfast this morning, with associated chronic cough exacerbation. Woke up today experiencing cough and irritability. Patient's states he felt warm. Patient does not mention any other complaints. PMD: Dr. Ruiz Time/Duration: Other (this morning) Symptom Onset: Sudden Symptom Course: Unchanged Past Medical History - Provider Review Nursing Documentation Reviewed: Yes - Infectious Disease Hx of Infectious Diseases: None - Tetanus Immunization Tetanus Immunization: Unknown - Cardiac Hx Cardiac Disorders: No Hx Pacemaker: No - Pulmonary Hx Respiratory Disorders: Yes Hx Chronic Obstructive Pulmonary Disease (COPD): Yes Hx Emphysema: Yes Hx Pneumonia: Yes - Neurological Hx Neurological Disorder: No - HEENT Hx HEENT Disorder: Yes (reading glasses) Hx Cataracts: Yes (b/l cat sx) Other/Comment: voice hoarse - Renal Hx Renal Disorder: No - Endocrine/Metabolic Hx Endocrine Disorders: No - Hematological/Oncological Hx Cancer: Yes (esophogeal CA) - Integumentary Hx Dermatological Disorder: Yes Hx Basal Cell Carcinoma: Yes (removed from back) Hx Melanoma: Yes (removed from back) Other/Comment: pt had shingles in 10/2015 r buttock around to r groin rash faded , "some" residual pain on lyrica (previous triage) - Musculoskeletal/Rheumatological Hx Arthritis: Yes ("all over") - Gastrointestinal Hx Gastrointestinal Disorders: Yes - Genitourinary/Gynecological Hx Genitourinary Disorders: No - Psychiatric Hx Anxiety: Yes Hx Substance Use: No - Surgical History Hx Mastectomy: No - Anesthesia Hx Anesthesia: Yes Hx Anesthesia Reactions: No Hx Malignant Hyperthermia: No - Suicidal Assessment Feels Threatened In Home Enviroment: No Family/Social History - Physician Review Nursing Documentation Reviewed: Yes Family/Social History: No Known Family HX Smoking Status: Former Smoker Hx Alcohol Use: No Hx Substance Use: No Hx Substance Use Treatment: No Allergies/Home Meds Allergies/Adverse Reactions: Allergies No Known Allergies Allergy (Verified 03/03/17 15:11) Home Medications: Home Meds Medication Instructions Recorded Confirmed ALPRAZolam [Xanax] 0.25 mg PO BID PRN 12/25/16 03/03/17 Albuterol Sulfate 2.5 mg IH Q6H PRN 12/25/16 03/03/17 Benzonatate 200 mg PO TID 12/25/16 03/03/17 Budesonide [Pulmicort Respules] 0.5 mg IH BID 12/25/16 03/03/17 Doxycycline Hyclate [Doryx] 100 mg PO DAILY 12/25/16 03/03/17 Fluticasone/Salmeterol 500/50 1 puff IH BID 12/25/16 03/03/17 [Advair Diskus 500/50] Guaifenesin [Mucinex] 800 mg PO BID 12/25/16 03/03/17 Levalbuterol Tartrate [Xopenex Hfa] 2 puff IH Q6H PRN 12/25/16 03/03/17 Levocetirizine Dihydrochloride 5 mg PO DAILY 12/25/16 03/03/17 [Xyzal] Metaxalone 800 mg PO BID PRN 12/25/16 03/03/17 Multivit,Iron,Min 5/Folic Acid 1 tab PO DAILY 12/25/16 03/03/17 [Strovite Forte Caplet] Pantoprazole Sodium [Protonix] 40 mg PO DAILY 12/25/16 03/03/17 Prednisone [Shakira] 15 mg PO DAILY 12/25/16 03/03/17 Pregabalin [Lyrica] 100 mg PO TID 12/25/16 03/03/17 Quinine Sulfate [Qualaquin] 324 mg PO DAILY 12/25/16 03/03/17 Sucralfate [Carafate Oral Susp] 1 gm PO BID 12/25/16 03/03/17 Tiotropium [Spiriva] 18 mcg IH DAILY 12/25/16 03/03/17 Tramadol HCl/Acetaminophen 1 tab PO BID 12/25/16 03/03/17 [Tramadol-Acetaminophn 37.5-325] diaZEpam [Valium] 5 mg PO DAILY 12/25/16 03/03/17 Review of Systems - Physician Review All systems were reviewed & negative as marked: Yes - Review of Systems Constitutional: absent: Fevers Respiratory: SOB, Cough (chronic cough exacerbation) Gastrointestinal: absent: Abdominal Pain, Diarrhea, Nausea, Vomiting Physical Exam Vital Signs Temp Pulse Resp BP Pulse Ox 03/03/17 15:51 101.4 F H 03/03/17 15:06 101.4 F H 137 H 24 129/61 77 L 03/03/17 15:04 101.4 F H 03/03/17 15:00 37 H Appearance: Positive for: Cachectic (elederly frail cachectic man in respiratory distress, speaking in only 3-word sentences.) - Systems Exam Respiratory/Chest: Present: Respiratory Distress (bibasilarly) Abdomen: Present: Normal Bowel Sounds. No: Tenderness, Distention, Peritoneal Signs Medical Decision Making ED Course and Treatment: 03/03/17 15:05 Impression: 71 year old male with respiratory distress. Plan: -- EKG -- Chest X-ray -- Labs -- Tylenol -- Duoneb -- Cefepime -- IV Fluids -- Blood Culture -- Urine Culture -- Venous Blood Gas -- Urinalysis -- Reassess and disposition Prior Visits: Notes and results from previous visits were reviewed. Patient was last seen in the emergency department on 01/02/2017 for shortness of breath. Patient was admitted. Progress Notes: 03/03/2017 15:26 Code Sepsis called. 03/03/2017 15:49 Chest X-ray IMPRESSION: There has been improvement in the cavitary lession in the right lung apex. On the previous exam the wall of the cavity was much thicker. This measure 5.5 cm in diameter. The lungs are otherwise clear. Dictator: Buck Cash MD 03/03/17 16:16 st @ [address]-t segments discernible , no arrythmogenic intervals 71 y/o male w/ aofmrentioned pmhx presents in respiratory distress requiring mechaically assisted respirations, faililing out t abx. will need icu admission for stabilization given severity of symptoms and complexity of needs. - Lab Interpretations Lab Results: 03/03/17 15:05 03/03/17 15:05 Lab Results 03/03/17 15:05: Sodium 138, Chloride 98, Potassium 3.7, Carbon Dioxide 30, Anion Gap 13, BUN 19, Creatinine 0.6 L, Est GFR ( Amer) > 60, Est GFR ( Non-Af Amer) > 60, Random Glucose 91, Calcium 10.5, Total Bilirubin 0.8, AST 26 , ALT 37, Alkaline Phosphatase 71, Lactate Dehydrogenase 366, Total Creatine Kinase Pending, Troponin I < 0.01, NT-Pro-B Natriuret Pep 119, Total Protein 6.8 , Albumin 3.9, Globulin 2.9, Albumin/Globulin Ratio 1.3 03/03/17 15:05: pO2 46, VBG pH 7.33, VBG pCO2 62.0 H, VBG HCO3 32.7 H, VBG Total CO2 34.6 H, VBG O2 Sat (Calc) 82.0 H, VBG Base Excess 4.9 H, VBG Potassium 3.7, Sodium 137.0, Chloride 99.0, Glucose 87, Lactate 2.4 H, FiO2 21.0 , Venous Blood Potassium 3.7 03/03/17 15:05: PT 9.8, INR 0.90 L, APTT 29.6 03/03/17 15:05: WBC 21.4 H D, RBC 4.54, Hgb 12.5 L, Hct 39.3 L, MCV 86.6 D, MCH 27.5, MCHC 31.8, RDW 18.7 H, Plt Count 283, MPV 9.4, Gran % 90.7 H, Lymph % (Auto) 3.9 L, Scott % (Auto) 5.2, Eos % (Auto) 0.2 L, Baso % (Auto) 0.0, Gran # 19.44 H, Lymph # 0.8 L, Scott # 1.1 H, Eos # 0.1, Baso # 0.01, Neutrophils % ( Manual) Pending, Lymphocytes % (Manual) Pending, Monocytes % (Manual) Pending I have reviewed the lab results: Yes - RAD Interpretation Radiology Orders: 03/03/17 15:09 CHEST PORTABLE [RAD] Stat - Medication Orders Current Medication Orders: Vancomycin HCl (Vancomycin 1gm) 1 gm in 250 mls @ 167 mls/hr IVPB STAT STA PRN Reason: Protocol Stop: 03/03/17 16:48 Sodium Chloride (Sodium Chloride 0.9%) 1,000 mls @ 999 mls/hr IV .Q1H1M STA Stop: 03/03/17 16:25 Last Admin: 03/03/17 15:05 Dose: 999 mls/hr eMAR Start Stop Document 03/03/17 15:05 RD (Rec: 03/03/17 15:42 RD [facility] [id number]) Intravenous Solution Start Date 03/03/17 Start Time 15:05 End Date 03/03/17 End time 16:05 Total Infusion Time 60 Discontinued Medications Acetaminophen (Tylenol 325mg Tab) 975 mg PO STAT STA Stop: 03/03/17 15:19 Last Admin: 03/03/17 15:51 Dose: Albuterol/Ipratropium (Duoneb 3 Mg/0.5 Mg (3 Ml) Ud) 3 ml IH Q15M [place] Stop: 03/03/17 16:16 Last Admin: 03/03/17 15:30 Dose: 3 ml Magnesium Sulfate 2 gm/ Sodium (Chloride) 104 mls @ 102 mls/hr IVPB STAT STA Stop: 03/03/17 16:03 Last Admin: 03/03/17 15:10 Dose: 102 mls/hr eMAR Start Stop Document 03/03/17 15:10 RD (Rec: 03/03/17 15:42 RD [facility] [id number]) Intravenous Solution Start Date 03/03/17 Start Time 15:10 End Date 03/03/17 End time 16:10 Total Infusion Time 60 Metronidazole (Flagyl) 500 mg in 100 mls @ 100 mls/hr IVPB STAT STA PRN Reason: Protocol Stop: 03/03/17 16:19 Cefepime HCl (Maxipime 2gm) 2 gm in 100 mls @ 100 mls/hr IVPB ONCE ONE PRN Reason: Protocol Stop: 03/03/17 16:18 Last Admin: 03/03/17 15:40 Dose: 100 mls/hr eMAR Start Stop Document 03/03/17 15:40 RD (Rec: 03/03/17 15:40 RD [facility] [id number]) Intravenous Solution Start Date 12/17/17 Start Time 15:30 End Date 03/03/17 End time 16:30 Total Infusion Time 60 Methylprednisolone (Solu-Medrol) 125 mg IVP STAT STA Stop: 03/03/17 15:45 Last Admin: 03/03/17 15:05 Dose: 125 mg IVP Administration Document 03/03/17 15:05 RD (Rec: 03/03/17 15:51 RD [facility] [id number]) Charges for Administration # of IVP Administrations 1 - Scribe Statement The provider has reviewed the documentation as recorded by the Sarah Peace Provider Scribe Attestation: All medical record entries made by the Anjuibdawson were at my direction and personally dictated by me. I have reviewed the chart and agree that the record accurately reflects my personal performance of the history, physical exam, medical decision making, and the department course for this patient. I have also personally directed, reviewed, and agree with the discharge instructions and disposition. Disposition/Present on Arrival - Present on Arrival Any Indicators Present on Arrival: No History of DVT/PE: No History of Uncontrolled Diabetes: No Urinary Catheter: No History of Decub. Ulcer: No History Surgical Site Infection Following: None - Disposition Have Diagnosis and Disposition been Completed?: Yes Diagnosis: Acute exacerbation of chronic obstructive pulmonary disease Disposition: HOSPITALIZED Disposition Time: 16:16 Patient Plan: Admission, ICU Patient Problems: Current Active Problems Problem Status Onset Acute exacerbation of chronic obstructive pulmonary disease Acute Condition: CRITICAL Referrals: Ricardo Ruiz MD [Primary Care Provider] - Follow up with primary Forms: [employer] (Korean)
[2017-03-03 17:16] LABS: BAND 2 % (0-2); NEUTROPHIL 90 % (50.0-70.0)
[2017-03-03 17:17] LABS: EOSINOPHIL 1 % (0.0-3.0); PLATELET ESTIMATE NORMAL (NORMAL)
[2017-03-03] MEDS ORDERED: Albuterol 0.083% Inhal Sol (2.5 mg/3 mL) UD INH PRN (17:38)
--- NOTE | 2017-03-03 17:49 | CP.PCM.HP ---
History of Present Illness - History of Present Illness History of Present Illness: 71 year old male with a past medical history of end stage COPD (on home oxygen) , basal cell carcinoma (s/p removal), melanoma (s/p removal), esophageal cancer (s/p proton radiation), and emphysema who comes in after complaining of having difficulty breathing after attempting to eat a tuna fish sandwich. The patient states that he was at home eating a tuna fish sandwich when he felt part of it go down incorrectly. The patient's stated she tried to calm the patient down however he began to feel as if he couldn't breath and became anxious. The patient in conjunction also reported a runny nose, chills, and chest tightness in conjunction with the initial symptoms. The patient denies any chest pain, nausea, vomiting, changes in vision, abdominal pain, swelling of the extremities , recent sick contacts or any other complaints. PMD: Dr. Ruiz Blackjack Dealer: Dr Peguero [employer] Set Up Mechanic/Oncologist: Dr. Ferreira Past medical history: See HPI Allergies: Denies Surgical history: Appendectomy, Basal cell carcinoma removal, melanoma removal Social: Former heavy smoker, Quit over 15 years ago. Denies alcohol or illicit drug use. Present on Admission - Present on Admission Any Indicators Present on Admission: No Review of Systems - Constitutional Constitutional: As Per HPI - EENT Eyes: As Per HPI Ears: As Per HPI Nose/Mouth/Throat: As Per HPI - Cardiovascular Cardiovascular: As Per HPI - Respiratory Respiratory: As Per HPI - Gastrointestinal Gastrointestinal: As Per HPI - Genitourinary Genitourinary: As Per HPI - Musculoskeletal Musculoskeletal: As Per HPI - Integumentary Integumentary: As Per HPI - Neurological Neurological: As Per HPI - Psychiatric Psychiatric: As Per HPI - Endocrine Endocrine: As Per HPI - Hematologic/Lymphatic Hematologic: As Per HPI Past Patient History - Infectious Disease Hx of Infectious Diseases: None - Tetanus Immunizations Tetanus Immunization: Unknown - Past Social History Smoking Status: Former Smoker - CARDIAC Hx Cardiac Disorders: No Hx Pacemaker: No - PULMONARY Hx Respiratory Disorders: Yes Hx Chronic Obstructive Pulmonary Disease (COPD): Yes Hx Emphysema: Yes Hx Pneumonia: Yes - NEUROLOGICAL Hx Neurological Disorder: No - HEENT Hx HEENT Problems: Yes (reading glasses) Hx Cataracts: Yes (b/l cat sx) Other/Comment: voice hoarse - RENAL Hx Chronic Kidney Disease: No - ENDOCRINE/METABOLIC Hx Endocrine Disorders: No - HEMATOLOGICAL/ONCOLOGICAL Hx Cancer: Yes (esophogeal CA) - INTEGUMENTARY Hx Dermatological Problems: Yes 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) Hx Melanoma: Yes (removed from back) Other/Comment: pt had shingles in 10/2015 r buttock around to r groin rash faded , "some" residual pain on lyrica (previous triage) - MUSCULOSKELETAL/RHEUMATOLOGICAL Hx Arthritis: Yes ("all over") - GASTROINTESTINAL Hx Gastrointestinal Disorders: Yes - GENITOURINARY/GYNECOLOGICAL Hx Genitourinary Disorders: No - PSYCHIATRIC Hx Anxiety: Yes Hx Substance Use: No - SURGICAL HISTORY Hx Mastectomy: No - ANESTHESIA Hx Anesthesia: Yes Hx Anesthesia Reactions: No Hx Malignant Hyperthermia: No Meds Allergies/Adverse Reactions: Allergies Allergy/AdvReac Type Severity Reaction Status Date / Time No Known Allergies Allergy Verified 03/03/17 15:11 Physical Exam - Head Exam Head Exam: ATRAUMATIC, NORMAL INSPECTION, NORMOCEPHALIC - Eye Exam Eye Exam: EOMI, Normal appearance, PERRL. absent: Periorbital tenderness Pupil Exam: NORMAL ACCOMODATION, PERRL. absent: Irregular, Unequal - ENT Exam ENT Exam: Mucous Membranes Moist, Normal Exam, Normal Oropharynx - Neck Exam Neck exam: Negative for: Lymphadenopathy, Thyromegaly - Respiratory Exam Respiratory Exam: Decreased Breath Sounds - Cardiovascular Exam Cardiovascular Exam: REGULAR RHYTHM, +S1, +S2. absent: Diastolic murmur, Gallop , RRR, Rubs - GI/Abdominal Exam GI & Abdominal Exam: Normal Bowel Sounds, Soft. absent: Hypoactive Bowel Sounds , Organomegaly, Tenderness - Extremities Exam Extremities exam: Positive for: full ROM. Negative for: joint swelling, pedal edema, tenderness - Back Exam Back exam: NORMAL INSPECTION. absent: CVA tenderness (L), CVA tenderness (R), paraspinal tenderness - Neurological Exam Neurological exam: Alert, CN II-XII Intact, Oriented x3 - Psychiatric Exam Psychiatric exam: Normal Affect, Normal Mood - Skin Skin Exam: Dry, Intact Results - Vital Signs Recent Vital Signs: Last Vital Signs Temp 99.4 F 03/03/17 16:51 Pulse 107 H 03/03/17 16:59 Resp 20 03/03/17 16:59 BP 121/53 L 03/03/17 16:59 Pulse Ox 98 03/03/17 16:59 - Labs Result Diagrams: 03/03/17 15:05 03/03/17 15:05 Labs: Laboratory Results - last 24 hr 03/03/17 03/03/17 03/03/17 15:05 15:05 15:05 WBC 21.4 H D RBC 4.54 Hgb 12.5 L Hct 39.3 L MCV 86.6 D MCH 27.5 MCHC 31.8 RDW 18.7 H Plt Count 283 MPV 9.4 Gran % 90.7 H Lymph % (Auto) 3.9 L [place] % (Auto) 5.2 Eos % (Auto) 0.2 L Baso % (Auto) 0.0 Gran # 19.44 H Lymph # 0.8 L [place] # 1.1 H Eos # 0.1 Baso # 0.01 Neutrophils % (Manual) 90 H Band Neutrophils % 2 Lymphocytes % (Manual) 4 L Monocytes % (Manual) 3 Eosinophils % (Manual) 1 Platelet Evaluation Normal PT 9.8 INR 0.90 L APTT 29.6 pO2 46 VBG pH 7.33 VBG pCO2 62.0 H VBG HCO3 32.7 H VBG Total CO2 34.6 H VBG O2 Sat (Calc) 82.0 H VBG Base Excess 4.9 H VBG Potassium 3.7 Sodium 137.0 Chloride 99.0 Glucose 87 Lactate 2.4 H FiO2 21.0 Potassium Carbon Dioxide Anion Gap BUN Creatinine Est GFR ( Amer) Est GFR (Non-Af Amer) Random Glucose Calcium Total Bilirubin AST ALT Alkaline Phosphatase Lactate Dehydrogenase Total Creatine Kinase Troponin I NT-Pro-B Natriuret Pep Total Protein Albumin Globulin Albumin/Globulin Ratio Venous Blood Potassium 3.7 Influenza Typ A,B (EIA) 03/03/17 03/03/17 15:05 15:50 WBC RBC Hgb Hct MCV MCH MCHC RDW Plt Count MPV Gran % Lymph % (Auto) [place] % (Auto) Eos % (Auto) Baso % (Auto) Gran # Lymph # [place] # Eos # Baso # Neutrophils % (Manual) Band Neutrophils % Lymphocytes % (Manual) Monocytes % (Manual) Eosinophils % (Manual) Platelet Evaluation PT INR APTT pO2 VBG pH VBG pCO2 VBG HCO3 VBG Total CO2 VBG O2 Sat (Calc) VBG Base Excess VBG Potassium Sodium 138 Chloride 98 Glucose Lactate FiO2 Potassium 3.7 Carbon Dioxide 30 Anion Gap 13 BUN 19 Creatinine 0.6 L Est GFR ( Amer) > 60 Est GFR (Non-Af Amer) > 60 Random Glucose 91 Calcium 10.5 Total Bilirubin 0.8 AST 26 ALT 37 Alkaline Phosphatase 71 Lactate Dehydrogenase 366 Total Creatine Kinase < 20 L Troponin I < 0.01 NT-Pro-B Natriuret Pep 119 Total Protein 6.8 Albumin 3.9 Globulin 2.9 Albumin/Globulin Ratio 1.3 Venous Blood Potassium Influenza Typ A,B (EIA) Negative for flu a/b Assessment & Plan - Assessment and Plan (Free Text) Assessment: Patient is a 71 year old male with past medical history of End-Stage COPD, invasive esophageal CA who was recently admitted for COPD exacerbation presents with worsening shortness of breath, cough with fevers and aspiration of food earlier. Currently treating Sepsis likely secondary to aspiration pneumonia and hypercapnic respiratory failure. Plan: 1. Sepsis secondary to Aspiration pneumonia -Patient reports aspirating earlier today on tuna fish sandwich. -Chest x ray showed a cavitary lesion in the right lung apex. Previous exam cavity much thicker at 5.5 cm. -Flu negative. -Patient given Cefepime, Flagyl and Vancomycin for coverage in the emergency department. -Patient has history of lung abscess. -Chest CT with IV contrast ordered. Will follow up with results. -Strep pneumoniae antigen, Urine legionella antigen ordered. Will follow up with results. -Patient will Vancomycin and start on Meropenem. -Infectious disease consulted. Will follow up with results. -Tylenol PRN for fever >100.4F -Patient NPO. Swallow eval ordered. Will follow up with results. 2. Hypercapnic respiratory failure -VBG showed a pco2 of 62. -Placed on BIPAP in the emergency department. EPAP 6/ IPAP 12/ O2% 35%. Saturation 97% on Bipap. -Atrovent, Xopenex, and Duonebs started. -Patient received loading dose of steroids in the emergency department. Will begin Solumedrol 40 mg Daily Saturday morning. -Pulmonary consulted. Will follow up with results. -Will be transferred to ICU for further monitoring. 3.Invasive esophageal cancer -Proton radiation completed in October. -Hematology/Oncology consulted. Will follow up with results. 4.Anxiety/Depression -continue home medications. 5. Normocytic anemia -Hgb 12.5 upon admission. No need for further workup at this time. stable. GI ppx -Protonix DVT ppx -Lovenox
[2017-03-03] MEDS ORDERED: Ipratropium 0.02% Inhal Soln (0.5 mg/2.5 ml) UD IH SCH (18:00)
[2017-03-03 18:22] LABS: VENOUS BLOOD GAS BASE EXCESS 1.7 mmol/L (0.0-2.0); VENOUS BLOOD PH 7.37 (7.32-7.43)
[2017-03-03] MEDS ORDERED: Levalbuterol 0.63 MG/3 ML Inhal Soln UD IH SCH (20:00)
[2017-03-03] MEDS: Acetylcysteine 20% Inhal Soln (4ml) IH SCH (20:02)
[2017-03-03] MEDS: Budesonide 0.25 mg/2 ml Inhal Susp UD IH SCH (20:04)
--- NOTE | 2017-03-03 20:29 | PCM.SEPTIC ---
Sepsis Progress Note - Reassessment Type Date of Evaluation: 03/03/17 Time of Evaluation: 20:20 Reassessment Type: Non-invasive reassessment - Non Invasive Reassessment Were the most recent vital sign reviewed: Yes Vital Sign (Latest): Temp Pulse Resp BP Pulse Ox 99.4 F 90 22 121/53 L 96 03/03/17 16:51 03/03/17 19:00 03/03/17 19:00 03/03/17 16:59 03/03/17 19:00 Cardiovascular: Yes: Regular Rate, Rhythm. No: Gallop, JVD, Tachycardia Respiratory: Yes: Decreased Breath Sounds, Accessory Muscle Use, Wheezing. No: Crackles, Rales, Rhonchi, Stridor, Respiratory Distress Capillary Refill: Normal (Less than 2 sec) Pulses: Normal Radial, Normal Dorsalis Pedis, Normal Posterior Tibialis Skin: Normal Color, Warm, Dry <Kurt Galvin - Last Filed: 03/03/17 20:28> - Non Invasive Reassessment Vital Sign (Latest): Temp Pulse Resp BP Pulse Ox 99.4 F 90 22 121/53 L 96 03/03/17 16:51 03/03/17 19:00 03/03/17 19:00 03/03/17 16:59 03/03/17 19:00 <Nicole Harvey - Last Filed: 03/03/17 21:00>
[2017-03-03] MEDS ORDERED: Vitamins A & D Oint UD Foilpak TOP PRN (20:53)
[2017-03-03] MEDS: Vancomycin 1gm in NS 250ml 1 GM/250 ML BAG IVPB SCH (23:20)
[2017-03-03] MEDS: MethylPREDNISolone 40 mg Vial IVP SCH (23:53)
[2017-03-04] MEDS: Acetylcysteine 20% Inhal Soln (4ml) IH SCH ×3 (01:37→19:10)
[2017-03-04] MEDS: Albuterol-Ipratrop 3 mg / 0.5 (3 ml) UD IH SCH ×3 (01:38→19:10)
--- NOTE | 2017-03-04 02:53 | CON ---
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 HISTORY OF PRESENT ILLNESS: Mr. Simms is a 71-year-old male with a history of end-stage COPD on home oxygen and esophageal CA as well as severe emphysema. The patient presented to the emergency room with complaint of severe shortness of breath,tachycardia, cough, congestion and wheezing. The patient stated that he was eating tuna fish sandwich and he felt that he may have aspirated a portion and developed severe shortness of breath. Also note that the patient had an admission in 12/2016 for COPD and pneumonia and it was noted that he had developed a lung abscess at that time. Most recent chest x-ray has revealed that there is improvement of that right upper lobe abscess that was at that time secondary to aspiration. The patient has a fever 101.4 noted in the ER and his states that he has had some fever and some increasing shortness of breath and cough over the last several days. No severe chest pain and no abdominal pain or diarrhea. PAST MEDICAL HISTORY: As above. There may be a component of anxiety and history of GERD. ALLERGIES: HE HAS NO KNOWN ALLERGIES. MEDICATIONS: Can be evaluated as per the nurses' intake form. SOCIAL HISTORY: The patient is a former smoker. No ETOH abuse. No drug abuse. FAMILY HISTORY: Noncontributory. REVIEW OF SYSTEMS: CONSTITUTIONAL: The patient did present with fever. No chills. No nausea or vomiting. HEENT: Within normal limits. CARDIOVASCULAR: He had some tachycardia. RESPIRATORY: The patient presented with shortness of breath, cough and wheezing. GASTROINTESTINAL: All negative. GENITOURINARY: All negative. MUSCULOSKELETAL: All negative. NEUROPSYCHIATRIC: All negative. ENDOCRINE: All negative. HEMATOLOGIC: All negative. IMMUNOLOGIC: All negative. INTEGUMENTARY: All negative. PHYSICAL EXAMINATION: VITAL SIGNS: Note that his temperature is 101.4, his pulse is 99, respiratory rate is 29 and O2 saturation is 94% on 3 L of nasal cannula at this time. Blood pressure is 129/61. SKIN: Warm and dry. HEENT: Head is atraumatic and normocephalic. Eyes are reactive to light. Ears, nose and throat seemed to be within normal limit. NECK: Supple. No JVD. No thyroid enlargement. No lymph nodes. HEART: Has a regular rate and rhythm. Normal S1 and S2. LUNGS: Reveal mild rhonchi at the bases with occasional respiratory wheeze. ABDOMEN: Soft. Decrease bowel sounds. No organomegaly noted. GENITALIA: Deferred. RECTAL: Deferred. MUSCULOSKELETAL: No joint deformities. EXTREMITIES: Reveal no significant edema. NEUROLOGICAL: He seemed to be grossly intact. LABORATORY DATA: As far his laboratories, his white count is 21.4, hemoglobin is 12.5, and hematocrit is 39.3 with platelets of [id number]. Sodium is 138, potassium is 3.7, chloride is 98, CO2 of 30, BUN of 19, creatinine of 0.6 and glucose is 91. DIAGNOSTIC DATA: Chest x-ray reveals that there is improvement in right upper lobe cavitary lesion and no significant infiltrates. IMPRESSION: As far as my impression, this patient has acute exacerbation of his chronic obstructive pulmonary disease with bronchospasm, may have a component of aspiration and must rule out pneumonia. He has a leukocytosis as well as a fever and history of esophageal cancer. The patient has respiratory failure requiring home oxygen and has a history of anxiety as well as gastroesophageal reflux disease. Note that he does have a right upper low cavitary lesion as well. He has a history of aspiration. PLAN: As far as our plan, I will consult for Dr. Horta, ID and Dr. Srivastava of Pulmonary. The patient is getting acetylcysteine as well as DuoNeb and Pulmicort. He is going to get Lovenox subcutaneous and is scheduled to get meropenem for antibiotic. The patient will continue with his Protonix and we will start Solu-Medrol as well as Xanax for anxiety. We will follow closely and treat aggressively along with the other consultants and the primary care doctor. Stephane Osborn MD
[2017-03-04] MEDS: Pantoprazole 40 mg EC Tab PO SCH (05:14)
[2017-03-04] MEDS: Meropenem IV 1 gm in NS 50 ML IVPB SCH ×3 (05:15→21:23)
[2017-03-04] MEDS: MethylPREDNISolone 40 mg Vial IVP SCH ×3 (05:15→21:15)
[2017-03-04 05:35] LABS: BASO # 0.01 K/mm3 (0.0-2.0); BASO % 0.1 % (0.0-3.0); GRAN # 12.75 (1.4-6.5); GRAN % 96.5 % (50.0-68.0); HEMATOCRIT 31.4 % (42.0-52.0); LYMPH # 0.2 (1.2-3.4); LYMPH % 1.7 % (22.0-35.0); MEAN CELL VOLUME 86.3 fl (80.0-105.0); MEAN CORPUSCULAR HEMOGLOBIN 26.9 pg (25.0-35.0); MEAN CORPUSCULAR HGB CONC 31.2 g/dl (31.0-37.0); MEAN PLATELET VOLUME 8.9 fl (7.0-11.0); MONO # 0.2 (0.1-0.6); MONO % 1.7 % (1.0-6.0); RED CELL DISTRIBUTION WIDTH 18.7 % (11.5-14.5); WHITE BLOOD COUNT 13.2 10^3/ul (4.5-11.0)
[2017-03-04 05:48] LABS: ARTERIAL BLOOD GAS HCO3 29.2 mmol/L (21-28); ARTERIAL BLOOD GAS O2 CAPACITY 14.1 mL/dl (16-24); ARTERIAL BLOOD GAS PH 7.42 (7.35-7.45); ARTERIAL BLOOD HGB O2 SAT 96.3 % (95.0-98.0); CARBOXYHEMOGLOBIN 2.2 % (0.5-1.5); HHB 0.4 % (0-5); METHEMOGLOBIN 1.1 % (0.0-3.0)
[2017-03-04] MEDS ORDERED: Meropenem IV 1 gm in NS 50 ML IVPB SCH (06:00)
[2017-03-04 07:08] LABS: ALB/GLOB RATIO 1.2 (1.1-1.8); ALKALINE PHOSPHATASE 53 U/L (38-126); ALT/SGPT 35 U/L (7-56); AST/SGOT 22 U/L (17-59); BILIRUBIN,TOTAL 0.5 mg/dL (0.2-1.3); BLOOD UREA NITROGEN 15 mg/dL (7-21); CALCIUM 9.6 mg/dL (8.4-10.5); CARBON DIOXIDE 30 mmol/L (21-33); CHLORIDE 104 mmol/L (98-107); GFR AFRICAN-AMERICAN > 60; GLUCOSE,RANDOM 154 mg/dL (70-110); MAGNESIUM 2.2 mg/dL (1.7-2.2); PHOSPHOROUS 3.5 mg/dL (2.5-4.5); POTASSIUM 4.7 mmol/L (3.6-5.0); SODIUM 139 mmol/L (132-148); TOTAL PROTEIN 5.6 g/dL (5.8-8.3)
--- NOTE | 2017-03-04 08:32 | CON ---
DATE: 03/03/2017 LOCATION: The patient is in the ICU, in room number 128, bed 6. CHIEF COMPLAINT: Shortness of breath and chronically ill and weakness. 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 The patient has Pseudomonas lung cavitary pyogenic abscess which was treated for a long period of time recently hospitalized and workup for AFB smears and cultures which were negative, now admitted with shortness of breath and fever and tachycardia. PAST MEDICAL HISTORY: Significant for end-stage COPD and emphysema, home O2 therapy, heavy smoker, basal cell cancer, esophageal cancer, radiation therapy and Pseudomonas lung cavity, pyogenic abscess and recent hospitalization. PAST SURGICAL HISTORY: Significant for appendectomy. ALLERGIES: THE PATIENT HAS NO KNOWN ALLERGIES. MEDICATIONS: The patient's medications at home are reviewed and include that the patient to be on prednisone and on tramadol, albuterol, Lexapro, and Xanax. PHYSICAL EXAMINATION: GENERAL: On exam the patient is in bed, appearing much, much older than stated age. He now appears cachectic and with wasting syndrome. VITAL SIGNS: With a temperature of 101.4, heart rate of 130, respiratory rate of 24, and blood pressure is 108/40. HEENT: Examination of HEENT reveals temporal wasting. NECK: Supple. LUNGS: Have decreased breath sounds. HEART: Normal S1 and S2. GASTROINTESTINAL: Abdomen examination is soft and nontender. No organomegaly, no rebound, no guarding and no masses. LABORATORY DATA: Laboratory examination reveals a white count of 21,000, hemoglobin of 12, and platelets of 283. The patient is 90% granulocytosis and the patient has a BUN of 19, and creatinine of 0.6. Serology is noted and influenza is negative. Microbiology is pending. DIAGNOSTIC DATA: The patient's chest x-ray is reviewed and another one from this morning is pending. Dr. Osborn's consultation is reviewed. ASSESSMENT AND PLAN: This is a 71-year-old male with end-stage chronic for lung disease, emphysema, home O2 therapy, heavy smoker, basal cell cancer, coronary artery disease, esophageal cancer, and Pseudomonas lung cavitary pyogenic abscess, now admitted with severe sepsis with healthcare-associated pneumonia. We will check on the electrocardiogram, one that is not available. Currently the patient is on vancomycin. We will add meropenem and vancomycin. The patient is also on Levaquin. I will check on a procalcitonin, urine for Legionella antigen, blood cultures, urine cultures and sputum cultures. We will make further recommendations depending initial workup and culture results. Overall prognosis quite poor for this patient with end-stage disease. Kwame Horta MD
--- NOTE | 2017-03-04 09:00 | RAD ---
HISTORY: f/u COMPARISON: 03/03/2017 FINDINGS: LUNGS: No pulmonary infiltrate. Thin-walled lucent lesion in the right lung apex. This corresponds to a cavitary lesions seen on chest CT examination of 01/02/2017. PLEURA: No significant pleural effusion identified, no pneumothorax apparent. CARDIOVASCULAR: Normal. OSSEOUS STRUCTURES: No significant abnormalities. VISUALIZED UPPER ABDOMEN: Normal. OTHER FINDINGS: None. IMPRESSION: Thin-walled cavitary lesion right lung apex. No change.
[2017-03-04] MEDS: Budesonide 0.25 mg/2 ml Inhal Susp UD IH SCH ×2 (09:16→19:11)
[2017-03-04] MEDS ORDERED: MethylPREDNISolone 40 mg Vial IVP SCH (10:00)
--- NOTE | 2017-03-04 10:39 | CP.PCM.PN ---
Subjective - Date & Time of Evaluation Date of Evaluation: 03/04/17 Time of Evaluation: 08:00 - Subjective Subjective: Pt seen and examined, reports SOB is improved, no other major complaints. Objective - Vital Signs/Intake and Output Vital Signs (last 24 hours): Temp Pulse Resp BP Pulse Ox 98.6 F 81 22 108/48 L 95 03/04/17 04:00 03/04/17 06:00 03/04/17 06:00 03/04/17 06:00 03/04/17 06:00 Intake and Output: 03/04/17 03/04/17 06:59 18:59 Intake Total 590 Output Total 640 Balance -50 - Medications Medications: Current Medications Acetylcysteine (Acetylcysteine 20%) 4 ml IH [id number] [facility] Last Admin: 03/04/17 09:15 Dose: 4 ml Albuterol Sulfate (Albuterol 0.083% Inhal Rylee (2.5 Mg/3 Ml) Ud) 2.5 mg INH Q4 PRN PRN Reason: Wheezing Albuterol/Ipratropium (Duoneb 3 Mg/0.5 Mg (3 Ml) Ud) 3 ml IH [id number] [facility] Last Admin: 03/04/17 09:15 Dose: 3 ml Alprazolam (Xanax) 0.25 mg PO BID PRN; Protocol PRN Reason: Anxiety Stop: 03/10/17 17:41 Last Admin: 03/04/17 05:36 Dose: 0.25 mg Budesonide (Pulmicort Respules) 0.5 mg IH [id number] [facility] Last Admin: 03/04/17 09:16 Dose: 0.5 mg Enoxaparin Sodium (Lovenox) 40 mg SC DAILY [facility] PRN Reason: Protocol Escitalopram Oxalate (Lexapro) 5 mg PO DAILY [facility] Levofloxacin/Dextrose (Levaquin 750mg) 750 mg in 150 mls @ 100 mls/hr IVPB DAILY [facility] PRN Reason: Protocol Meropenem (Merrem Iv 1 Gm Premix) 50 mls @ 100 mls/hr IVPB Q8 [facility] PRN Reason: Protocol Stop: 03/13/17 06:01 Last Admin: 03/04/17 05:15 Dose: 100 mls/hr Vancomycin HCl (Vancomycin 1gm) 1 gm in 250 mls @ 167 mls/hr IVPB Q12H [facility] PRN Reason: Protocol Stop: 03/12/17 22:16 Last Admin: 03/03/17 23:20 Dose: 167 mls/hr Methylprednisolone (Solu-Medrol) 40 mg IVP Q12 [facility] Pantoprazole Sodium (Protonix Ec Tab) 40 mg PO 0600 [facility] Last Admin: 03/04/17 05:14 Dose: 40 mg Sodium Chloride ([place] Nasal [place]) 0 ml NS Q8 PRN PRN Reason: NASAL CONGESTION Last Admin: 03/03/17 21:41 Dose: 2 sprays Tamsulosin HCl (Flomax) 0.8 mg PO DAILY [facility] Vitamin A (Vitamin A & D Oint Ud Foilpak) 1 ea TOP Q8H PRN PRN Reason: Dry nasal passages Last Admin: 03/03/17 21:38 Dose: 1 ea - Labs Labs: 03/04/17 05:00 03/04/17 05:00 PT 9.8 SECONDS (9.4-12.5) 03/03/17 15:05 INR 0.90 (0.93-1.08) L 03/03/17 15:05 APTT 29.6 Seconds (25.1-36.5) 03/03/17 15:05 - Constitutional Appears: Well, Non-toxic, No Acute Distress - Eye Exam Eye Exam: Normal appearance - ENT Exam ENT Exam: Mucous Membranes Moist - Neck Exam Neck Exam: Full ROM - Respiratory Exam Respiratory Exam: Clear to Ausculation Bilateral, NORMAL BREATHING PATTERN - Cardiovascular Exam Cardiovascular Exam: REGULAR RHYTHM, +S1, +S2 - GI/Abdominal Exam GI & Abdominal Exam: Soft, Normal Bowel Sounds - Extremities Exam Extremities Exam: Normal Inspection - Neurological Exam Neurological Exam: Alert, Awake Assessment and Plan - Assessment and Plan (Free Text) Assessment: 71yo male a/w PNA, Sepsis, COPD exacerbation Sepsis PNA COPD exacerbation HX of Esophageal Ca Recommend - supp o2 as needed - anitbiotics as per ID - check Procal - follow up cultures - BP control - IV hydration - Taper IV steroids - Duonebs, Pulmicort - OOB to chair - GI ppx - DVT ppx - Stable, transfer to telemetry
[2017-03-04] MEDS: Vancomycin 1gm in NS 250ml 1 GM/250 ML BAG IVPB SCH ×2 (10:53→22:05)
[2017-03-04] MEDS: levoFLOXacin 750 mg in D5W 750 MG/150 ML BAG IVPB SCH (11:00)
[2017-03-04] MEDS: Enoxaparin 40 mg Syringe SC SCH (11:00)
[2017-03-04] MEDS ORDERED: Iohexol 300 100 ML IJ ONE (15:14)
--- NOTE | 2017-03-04 16:45 | CP.PCM.HP ---
Past Patient History - Infectious Disease Hx of Infectious Diseases: None - Tetanus Immunizations Tetanus Immunization: Unknown - Past Social History Smoking Status: Former Smoker - CARDIAC Hx Cardiac Disorders: No Hx Pacemaker: No - PULMONARY Hx Respiratory Disorders: Yes Hx Chronic Obstructive Pulmonary Disease (COPD): Yes Hx Emphysema: Yes Hx Pneumonia: Yes - NEUROLOGICAL Hx Neurological Disorder: No - HEENT Hx HEENT Problems: Yes (reading glasses) Hx Cataracts: Yes (b/l cat sx) - RENAL Hx Chronic Kidney Disease: No - ENDOCRINE/METABOLIC Hx Endocrine Disorders: No - HEMATOLOGICAL/ONCOLOGICAL Hx Cancer: Yes (esophogeal CA/radiation) - INTEGUMENTARY Hx Dermatological Problems: Yes 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) Hx Melanoma: Yes (removed from back) Other/Comment: 09/2016 r buttock around to r groin - MUSCULOSKELETAL/RHEUMATOLOGICAL Hx Arthritis: Yes Hx Falls: No - GASTROINTESTINAL Hx Gastrointestinal Disorders: Yes - GENITOURINARY/GYNECOLOGICAL Hx Genitourinary Disorders: No Hx Prostate Problems: Yes (enlge) - PSYCHIATRIC Hx Anxiety: Yes Hx Substance Use: No - SURGICAL HISTORY Hx Surgeries: Yes Hx Appendectomy: Yes - ANESTHESIA Hx Anesthesia: Yes Hx Anesthesia Reactions: No Hx Malignant Hyperthermia: No Meds Allergies/Adverse Reactions: Allergies Allergy/AdvReac Type Severity Reaction Status Date / Time No Known Allergies Allergy Verified 03/03/17 15:11 Results - Vital Signs Recent Vital Signs: Last Vital Signs Temp 97.4 F L 03/04/17 08:00 Pulse 89 03/04/17 11:40 Resp 30 H 03/04/17 11:40 BP 122/58 L 03/04/17 11:18 Pulse Ox 92 L 03/04/17 11:40 - Labs Result Diagrams: 03/04/17 05:00 03/04/17 05:00 Labs: Laboratory Results - last 24 hr 03/03/17 03/03/17 03/04/17 18:00 18:00 05:00 WBC 13.2 H D RBC 3.64 Hgb 9.8 L D Hct 31.4 L MCV 86.3 MCH 26.9 MCHC 31.2 RDW 18.7 H Plt Count 216 MPV 8.9 Gran % 96.5 H Lymph % (Auto) 1.7 L Kleberg % (Auto) 1.7 Eos % (Auto) 0.0 L Baso % (Auto) 0.1 Gran # 12.75 H Lymph # 0.2 L Kleberg # 0.2 Eos # 0.0 Baso # 0.01 pCO2 pO2 50 HCO3 ABG pH ABG Total CO2 ABG O2 Saturation ABG O2 Content ABG Base Excess ABG Hemoglobin ABG Carboxyhemoglobin POC ABG HHb (Measured) ABG Methemoglobin ABG O2 Capacity VBG pH 7.37 VBG pCO2 48.0 VBG HCO3 27.7 VBG Total CO2 29.2 H VBG O2 Sat (Calc) 90.9 H VBG Base Excess 1.7 VBG Potassium 3.7 Hgb O2 Saturation Sodium 136.0 Chloride 106.0 Glucose 143 H Lactate 1.4 FiO2 21.0 Potassium Carbon Dioxide Anion Gap BUN Creatinine Est GFR ( Amer) Est GFR (Non-Af Amer) Random Glucose Lactic Acid 1.3 Calcium Phosphorus Magnesium Total Bilirubin AST ALT Alkaline Phosphatase Total Protein Albumin Globulin Albumin/Globulin Ratio Venous Blood Potassium 3.7 03/04/17 03/04/17 05:00 05:35 WBC RBC Hgb Hct MCV MCH MCHC RDW Plt Count MPV Gran % Lymph % (Auto) Kleberg % (Auto) Eos % (Auto) Baso % (Auto) Gran # Lymph # Kleberg # Eos # Baso # pCO2 45 pO2 123.0 H HCO3 29.2 H ABG pH 7.42 ABG Total CO2 30.6 H ABG O2 Saturation 99.6 H ABG O2 Content 14.0 L ABG Base Excess 4.2 H ABG Hemoglobin 10.2 L ABG Carboxyhemoglobin 2.2 H POC ABG HHb (Measured) 0.4 ABG Methemoglobin 1.1 ABG O2 Capacity 14.1 L VBG pH VBG pCO2 VBG HCO3 VBG Total CO2 VBG O2 Sat (Calc) VBG Base Excess VBG Potassium Hgb O2 Saturation 96.3 Sodium 139 Chloride 104 Glucose Lactate FiO2 32.0 Potassium 4.7 Carbon Dioxide 30 Anion Gap 10 BUN 15 Creatinine 0.5 L Est GFR ( Amer) > 60 Est GFR (Non-Af Amer) > 60 Random Glucose 154 H Lactic Acid Calcium 9.6 Phosphorus 3.5 Magnesium 2.2 Total Bilirubin 0.5 AST 22 ALT 35 Alkaline Phosphatase 53 Total Protein 5.6 L Albumin 3.1 Globulin 2.5 Albumin/Globulin Ratio 1.2 Venous Blood Potassium
--- NOTE | 2017-03-04 16:55 | CARD ---
APPROVED REPORT EKG Measurement Heart [id number] <Conclusion> Sinus tachycardia Nonspecific T wave abnormality Abnormal ECG
--- NOTE | 2017-03-04 16:58 | CP.PCM.PN ---
<Diaz Nelson - Last Filed: 03/04/17 17:38> Subjective - Date & Time of Evaluation Date of Evaluation: 03/04/17 Time of Evaluation: 09:00 - Subjective Subjective: Patient was seen and examined at bedside in no acute distress. Stated he had shortness of breath but that it had improved since being admitted. Denies chest pain, abdominal pain, fevers, chills, nausea, vomiting, diarrhea. Was no loner retaining and therefore removed from BiPAP initially however, after eating breakfast felt he needed an extra boost so RT placed BiPAP back on. Objective - Vital Signs/Intake and Output Vital Signs (last 24 hours): Temp Pulse Resp BP Pulse Ox 97.4 F L 89 30 H 122/58 L 92 L 03/04/17 08:00 03/04/17 11:40 03/04/17 11:40 03/04/17 11:18 03/04/17 11:40 Intake and Output: 03/04/17 03/04/17 06:59 18:59 Intake Total 590 Output Total 640 Balance -50 - Medications Medications: Current Medications Acetylcysteine (Acetylcysteine 20%) 4 ml IH [id number] [facility] Last Admin: 03/04/17 09:15 Dose: 4 ml Albuterol Sulfate (Albuterol 0.083% Inhal Rylee (2.5 Mg/3 Ml) Ud) 2.5 mg INH Q4 PRN PRN Reason: Wheezing Albuterol/Ipratropium (Duoneb 3 Mg/0.5 Mg (3 Ml) Ud) 3 ml IH [id number] [facility] Last Admin: 03/04/17 09:15 Dose: 3 ml Alprazolam (Xanax) 0.25 mg PO BID PRN; Protocol PRN Reason: Anxiety Stop: 03/10/17 17:41 Last Admin: 03/04/17 05:36 Dose: 0.25 mg Budesonide (Pulmicort Respules) 0.5 mg IH [id number] [facility] Last Admin: 03/04/17 09:16 Dose: 0.5 mg Enoxaparin Sodium (Lovenox) 40 mg SC DAILY [facility] PRN Reason: Protocol Last Admin: 03/04/17 11:00 Dose: 40 mg Escitalopram Oxalate (Lexapro) 5 mg PO DAILY [facility] Last Admin: 03/04/17 11:00 Dose: 5 mg Levofloxacin/Dextrose (Levaquin 750mg) 750 mg in 150 mls @ 100 mls/hr IVPB DAILY [facility] PRN Reason: Protocol Last Admin: 03/04/17 11:00 Dose: 100 mls/hr Meropenem (Merrem Iv 1 Gm Premix) 50 mls @ 100 mls/hr IVPB Q8 [facility] PRN Reason: Protocol Stop: 03/13/17 06:01 Last Admin: 03/04/17 14:32 Dose: 100 mls/hr Vancomycin HCl (Vancomycin 1gm) 1 gm in 250 mls @ 167 mls/hr IVPB Q12H [facility] PRN Reason: Protocol Stop: 03/12/17 22:16 Last Admin: 03/04/17 10:53 Dose: 167 mls/hr Methylprednisolone (Solu-Medrol) 40 mg IVP Q12 [facility] Last Admin: 03/04/17 10:56 Dose: 40 mg Pantoprazole Sodium (Protonix Ec Tab) 40 mg PO 0600 [facility] Last Admin: 03/04/17 05:14 Dose: 40 mg Sodium Chloride ([place] Nasal [place]) 0 ml NS Q8 PRN PRN Reason: NASAL CONGESTION Last Admin: 03/04/17 11:52 Dose: 2 sprays Tamsulosin HCl (Flomax) 0.8 mg PO DAILY [facility] Last Admin: 03/04/17 11:00 Dose: 0.8 mg Vitamin A (Vitamin A & D Oint Ud Foilpak) 1 ea TOP Q8H PRN PRN Reason: Dry nasal passages Last Admin: 03/03/17 21:38 Dose: 1 ea - Labs Labs: 03/04/17 05:00 03/04/17 05:00 PT 9.8 SECONDS (9.4-12.5) 03/03/17 15:05 INR 0.90 (0.93-1.08) L 03/03/17 15:05 APTT 29.6 Seconds (25.1-36.5) 03/03/17 15:05 - Constitutional Appears: Non-toxic, No Acute Distress - Head Exam Head Exam: ATRAUMATIC, NORMAL INSPECTION, NORMOCEPHALIC - Eye Exam Eye Exam: EOMI, Normal appearance - ENT Exam ENT Exam: Mucous Membranes Moist, Normal Exam - Neck Exam Neck Exam: Normal Inspection - Respiratory Exam Respiratory Exam: Rhonchi, NORMAL BREATHING PATTERN. absent: Clear to Ausculation Bilateral - Cardiovascular Exam Cardiovascular Exam: REGULAR RHYTHM, +S1, +S2 - GI/Abdominal Exam GI & Abdominal Exam: Soft, Normal Bowel Sounds - Back Exam Back Exam: NORMAL INSPECTION - Neurological Exam Neurological Exam: Alert, Awake, Oriented x3 - Psychiatric Exam Psychiatric exam: Normal Affect, Normal Mood - Skin Skin Exam: Intact, Normal Color, Warm Assessment and Plan - Assessment and Plan (Free Text) Assessment: Patient is a 71 year old male with past medical history of End-Stage COPD, invasive esophageal CA who was recently admitted for COPD exacerbation presents with worsening shortness of breath, cough with fevers and aspiration of food earlier. Currently treating Sepsis likely secondary to aspiration pneumonia and hypercapnic respiratory failure. Plan: 1. Sepsis secondary to Aspiration pneumonia -Patient reports aspirating earlier today on tuna fish sandwich. -Chest x ray showed a cavitary lesion in the right lung apex. Previous exam cavity much thicker at 5.5 cm. -Flu negative. -Patient given Cefepime, Flagyl and Vancomycin for coverage in the emergency department. -Patient has history of lung abscess. -Chest CT with IV contrast ordered; results pending -Strep pneumoniae antigen, Urine legionella antigen ordered; results pending --Infectious disease on board; pPatient already on Levaquin and Vancomycin. Meropenem added. -Swallow eval ordered. Will follow up with results. 2.Hypercapnic respiratory failure -VBG showed a pco2 of 62, however has improved, no longer retaining -Placed on BIPAP in the emergency department, BiPAP discontinued -Atrovent, Xopenex, and Duonebs started. -Solumedrol 40 mg q12h -Pulmonary consulted -was admitted to ICU however has been transfered to telemetry 3.Invasive esophageal cancer -Proton radiation completed in October -Hematology/Oncology consulted- Dr. Ferreira is patient's oncologist 4.Anxiety/Depression -continue home medications. GI ppx/DVT ppx -Protonix/Lovenox <Jesika Gómez - Last Filed: 03/04/17 17:43> Objective - Vital Signs/Intake and Output Vital Signs (last 24 hours): Temp Pulse Resp BP Pulse Ox 98.1 F 103 H 20 107/62 96 03/04/17 16:00 03/04/17 16:00 03/04/17 16:00 03/04/17 16:00 03/04/17 16:00 Intake and Output: 03/04/17 03/04/17 06:59 18:59 Intake Total 590 Output Total 640 Balance -50 - Medications Medications: Current Medications Acetylcysteine (Acetylcysteine 20%) 4 ml IH [id number] [facility] Last Admin: 03/04/17 09:15 Dose: 4 ml Albuterol Sulfate (Albuterol 0.083% Inhal Rylee (2.5 Mg/3 Ml) Ud) 2.5 mg INH Q4 PRN PRN Reason: Wheezing Albuterol/Ipratropium (Duoneb 3 Mg/0.5 Mg (3 Ml) Ud) 3 ml IH [id number] [facility] Last Admin: 03/04/17 09:15 Dose: 3 ml Alprazolam (Xanax) 0.25 mg PO BID PRN; Protocol PRN Reason: Anxiety Stop: 03/10/17 17:41 Last Admin: 03/04/17 05:36 Dose: 0.25 mg Budesonide (Pulmicort Respules) 0.5 mg IH [id number] [facility] Last Admin: 03/04/17 09:16 Dose: 0.5 mg Diazepam (Valium) 5 mg PO DAILY [facility] PRN Reason: Protocol Enoxaparin Sodium (Lovenox) 40 mg SC DAILY [facility] PRN Reason: Protocol Last Admin: 03/04/17 11:00 Dose: 40 mg Escitalopram Oxalate (Lexapro) 5 mg PO DAILY [facility] Last Admin: 03/04/17 11:00 Dose: 5 mg Levofloxacin/Dextrose (Levaquin 750mg) 750 mg in 150 mls @ 100 mls/hr IVPB DAILY [facility] PRN Reason: Protocol Last Admin: 03/04/17 11:00 Dose: 100 mls/hr Meropenem (Merrem Iv 1 Gm Premix) 50 mls @ 100 mls/hr IVPB Q8 [facility] PRN Reason: Protocol Stop: 03/13/17 06:01 Last Admin: 03/04/17 14:32 Dose: 100 mls/hr Vancomycin HCl (Vancomycin 1gm) 1 gm in 250 mls @ 167 mls/hr IVPB Q12H [facility] PRN Reason: Protocol Stop: 03/12/17 22:16 Last Admin: 03/04/17 10:53 Dose: 167 mls/hr Methylprednisolone (Solu-Medrol) 40 mg IVP Q12 [facility] Last Admin: 03/04/17 10:56 Dose: 40 mg Pantoprazole Sodium (Protonix Ec Tab) 40 mg PO 0600 [facility] Last Admin: 03/04/17 05:14 Dose: 40 mg Pregabalin (Lyrica) 100 mg PO TID [facility] Sodium Chloride ([place] Nasal [place]) 0 ml NS Q8 PRN PRN Reason: NASAL CONGESTION Last Admin: 03/04/17 11:52 Dose: 2 sprays Tamsulosin HCl (Flomax) 0.8 mg PO DAILY [facility] Last Admin: 03/04/17 11:00 Dose: 0.8 mg Tramadol/Acetaminophen (Ultracet 37.5/325 Mg) 1 tab PO Q12H PRN PRN Reason: Pain, moderate (4-7) Tramadol/Acetaminophen (Ultracet 37.5/325 Mg) 1 tab PO BID [facility] Vitamin A (Vitamin A & D Oint Ud Foilpak) 1 ea TOP Q8H PRN PRN Reason: Dry nasal passages Last Admin: 03/03/17 21:38 Dose: 1 ea - Labs Labs: 03/04/17 05:00 03/04/17 05:00 PT 9.8 SECONDS (9.4-12.5) 03/03/17 15:05 INR 0.90 (0.93-1.08) L 03/03/17 15:05 APTT 29.6 Seconds (25.1-36.5) 03/03/17 15:05 Attending/Attestation - Attestation I have personally seen and examined this patient.: Yes I have fully participated in the care of the patient.: Yes I have reviewed all pertinent clinical information, including history, physical exam and plan: Yes Notes (Text): 03/04/17 17:41 Patient was seen and exaimned with medical office worker. 71 year old male with a past medical history of end stage COPD (on home oxygen) , basal cell carcinoma (s/p removal), melanoma (s/p removal), esophageal cancer , recently was treated for Pseudomonas Lung abscess with 4 wks of IV antibiotics, currently was on levofloxacin is admitted with sepsis, HCAP Pneumonia, hypercapnic Resp Failure due to COPD exacerbation .He is on broad spectrum antibiotics as per ID. Contnue NEB/Steroid , patient is tolerating on BIPAP We will get CT chest with IV contrast ordered for evaluation of esophageal CA/ lung abscess(was improved on X ray), Patient is DNI but NR.
[2017-03-04] MEDS ORDERED: TraMADol/Apap 37.5/325 mg Tab PO SCH (18:00)
[2017-03-04] MEDS: TraMADol/Apap 37.5/325 mg Tab PO SCH (21:16)
[2017-03-05] MEDS: Acetylcysteine 20% Inhal Soln (4ml) IH SCH ×4 (01:01→21:03)
[2017-03-05] MEDS: Albuterol-Ipratrop 3 mg / 0.5 (3 ml) UD IH SCH ×4 (01:02→21:04)
[2017-03-05] MEDS: Sucralfate 1 gm/10 ml Oral Susp UD PO SCH ×2 (05:14→16:57)
[2017-03-05] MEDS: Pantoprazole 40 mg EC Tab PO SCH (05:14)
[2017-03-05] MEDS: Meropenem IV 1 gm in NS 50 ML IVPB SCH ×3 (05:15→21:58)
[2017-03-05 07:48] LABS: GRAN # 8.75 (1.4-6.5); GRAN % 91.2 % (50.0-68.0); HEMATOCRIT 29.8 % (42.0-52.0); LYMPH # 0.4 (1.2-3.4); LYMPH % 3.8 % (22.0-35.0); MEAN CELL VOLUME 85.4 fl (80.0-105.0); MEAN CORPUSCULAR HEMOGLOBIN 26.9 pg (25.0-35.0); MEAN CORPUSCULAR HGB CONC 31.5 g/dl (31.0-37.0); MEAN PLATELET VOLUME 8.8 fl (7.0-11.0); MONO # 0.5 (0.1-0.6); RED CELL DISTRIBUTION WIDTH 18.4 % (11.5-14.5); WHITE BLOOD COUNT 9.6 10^3/ul (4.5-11.0)
[2017-03-05] MEDS: Budesonide 0.25 mg/2 ml Inhal Susp UD IH SCH ×2 (07:58→21:04)
[2017-03-05 08:21] LABS: ALB/GLOB RATIO 1.2 (1.1-1.8); ALKALINE PHOSPHATASE 48 U/L (38-126); ALT/SGPT 30 U/L (7-56); AST/SGOT 17 U/L (17-59); BILIRUBIN,TOTAL 0.5 mg/dL (0.2-1.3); BLOOD UREA NITROGEN 15 mg/dL (7-21); CALCIUM 9.8 mg/dL (8.4-10.5); CARBON DIOXIDE 31 mmol/L (21-33); CHLORIDE 102 mmol/L (98-107); GFR AFRICAN-AMERICAN > 60; GLUCOSE,RANDOM 115 mg/dL (70-110); POTASSIUM 4.1 mmol/L (3.6-5.0); SODIUM 137 mmol/L (132-148); TOTAL PROTEIN 5.5 g/dL (5.8-8.3)
[2017-03-05] MEDS: levoFLOXacin 750 mg in D5W 750 MG/150 ML BAG IVPB SCH (09:13)
[2017-03-05] MEDS: Enoxaparin 40 mg Syringe SC SCH (09:16)
[2017-03-05] MEDS: MethylPREDNISolone 40 mg Vial IVP SCH ×2 (09:19→21:10)
[2017-03-05] MEDS: TraMADol/Apap 37.5/325 mg Tab PO SCH (09:20)
--- NOTE | 2017-03-05 10:41 | CON ---
DATE: 03/04/2017 This is Anurag Simms's consult for Dr. Ferreira on the medical floor. For Dr. Ferreira. CHIEF COMPLAINT: Shortness of breath. HISTORY OF PRESENT ILLNESS: The patient is a 71-year-old male, recently treated for T3N1M0 adenocarcinoma of the esophagus that involved the lower third approximately 7 cm of the esophagus, positive nodes on PET/CT scan. The patient also noted to have metastatic lymph node on the right thoracic aortic region in the upper abdominal gastroesophageal junction. The biopsy was consisted with adenocarcinoma of the esophagus. This was in August 2016. Since then, the patient had been admitted to the [facility] approximately four times since August for exacerbation of the COPD as the patient was a heavy smoker at one point. At present, he is sitting up in a chair, his at the bedside, now being transferred on to the intensive care unit where he was admitted up on the evaluation for his dyspnea. The patient, at one point, was considered for lung transplant. He was not a candidate due to his above diagnoses. PAST MEDICAL HISTORY: Significant for severe COPD, FEV 23%, FEV1 of 33% on 2 L nasal cannula constantly. SIADH, restless leg syndrome, back pain, GERD, status post appendectomy, history of melanoma, lesions at his back in 2013, recently treated for upper lobe pneumonia with cavitary lesion, Pseudomonas positive blood culture. He is status post proton beam therapy, history of respiratory failure, end-stage COPD, ASCVD with basal cell carcinoma history. The patient did complete four weeks of intravenous antibiotics, with a port removed and PICC line also recently removed. The patient is status post appendectomy. FAMILY HISTORY AND SOCIAL HISTORY: Heavy smoker, quit 10 years ago after greater than a pack a day for 40 years. Denies EtOH abuse or use. Otherwise, noncontributory. at the bedside. ALLERGIES: NO KNOWN ALLERGIES. MEDICATIONS: His medications at this point from [facility] in [place] include prednisone 40 mg daily with a taper as per Dr. Srivastava, Pulmonology; quinine sulfate 324 for his leg cramps; Spiriva; Strovite; Carafate; Flomax; acetylcysteine nebulizer; aspirin; Daliresp; DuoNeb; Xanax p.r.n.; Lexapro; fluticasone; Lyrica, which was discontinued; montelukast; nystatin suspension also discontinued; Mucinex p.r.n.; Protonix; Tessalon Perles; home oxygen; Mycelex Troches recently discontinued with Levaquin treatment approximately one month's duration after IV antibiotics have been discontinued as per Dr. Nunez, Infectious Disease production support consultant. REVIEW OF SYSTEMS: A 12-point review of systems was done, which was negative except for items mentioned in the history of present illness. PHYSICAL EXAMINATION: VITAL SIGNS: Temperature 98.1, pulse 107, respirations 20, blood pressure 107/62, and pulse ox of 96%. HEENT: The patient had oxygen on. Tongue is moist and midline. No apparent oropharyngeal lesions. NECK: Supple. HEART: Tachy rate. Regular rhythm. LUNGS: Scattered rhonchi. Decreased breath sounds. ABDOMEN: Scaphoid, soft, nontender. EXTREMITIES: No edema. SKIN: Warm and dry. NEUROLOGIC: Awake and alert. LABORATORY DATA: The patient's labs were done. White blood cell count of 13,200, down from 21,400 on admission yesterday; hemoglobin at 9.8, down from 12.5 on admission yesterday, probably heme concentrated; hematocrit 31.4; and platelet count 216,000. His chem metabolic panel is within normal range except for nonfasting glucose of 154. INR yesterday was 0.9 and ABG today showed pO2 of 123 and pH of 7.42. Legionella pneumophila antigen testing was negative. Influenza testing was also negative. His chem metabolic panel showed a procalcitonin of 0.16, but otherwise normal chem panel. The patient had a chest x-ray done today. It was read as thin-walled cavitary lesion, right lung apex, no change. An EKG done yesterday, it was read as sinus tachycardiac, nonspecific T-wave abnormality. ASSESSMENT: For this patient is that of severe sepsis; healthcare-associated pneumonia; history of Pseudomonas lung cavitary abscess; end-stage chronic obstructive pulmonary disease with exacerbation; hypoxemia, on portable oxygen; history of T3N1M0 adenocarcinoma of the esophagus, lower third; status post proton beam therapy with Dr. Delon Ma at [facility] in [place], [place], with radiation treatment. The patient, at one point, was on Xeloda, which has been discontinued. SIADH, history of smoking, cachexia, malignancy, history of basal cell carcinoma, history of depression. PLAN: The plan for this patient is to continue present medical regimen, we will ask for a CT scan of the chest with IV contrast as per Dr. Ferreira's recommendations for evaluation of his right upper lung abscess and history of oral candidiasis. Continue present medical regimen as per attending doctor with his labs to be monitored and the patient to be monitored clinically as per Dr. Srivastava, Pulmonology. Also, consult Dr. Gardner for his oropharyngeal candidiasis history and Dr. Horta, Infectious Disease. Prognosis for this patient is guarded. This is a complex patient with [id number] time in excess of 60 minutes for his in-depth consultation as the patient is a comprehensive medically necessary. This is a complex patient, a comprehensive medically necessary and appropriate visit was carried out. The patient's questions were answered as well as his who is at the bedside. Abhijeet Vigil MD
[2017-03-05] MEDS: Vancomycin 1gm in NS 250ml 1 GM/250 ML BAG IVPB SCH (10:59)
--- NOTE | 2017-03-05 15:32 | PN ---
DATE: 03/05/2017 SUBJECTIVE: The patient is in bed, in no acute distress and is afebrile and he has improved, still short of breath. PHYSICAL EXAMINATION: VITAL SIGNS: Temperature is 97, blood pressure is 130/70, respiratory rate of 21, heart rate of 117. HEENT: Unremarkable. NECK: Supple. LUNGS: Have decreased breath sounds. HEART: Normal S1, S2. ABDOMEN: Soft, nontender. LABORATORY DATA: Reveals a white count of 9.6, hemoglobin of 9, platelets of 210. Chemistries reveals a BUN of 15, creatinine of 0.5 and procalcitonin is 0.16. Serology is noted and urine for Legionella antigen is negative. Influenza is negative and microbiology reveals the blood cultures are no growth. The patient's chest x-ray from yesterday is reviewed. No pulmonary infiltrate is noted. ASSESSMENT AND PLAN: A 71-year-old male with end-stage chronic lung disease and emphysema, on home O2 therapy, heavy smoker, basal cell cancer, coronary artery disease, esophageal cancer, Pseudomonas, lung cavity, pyogenic abscess, admitted with severe sepsis, healthcare-associated pneumonia and on vancomycin, meropenem and Levaquin with urine Legionella antigen is negative. Influenza is negative and procalcitonin is negative with negative blood cultures thus far. We will treat discontinue the vancomycin and continue present course, pending remainder of the workup. Kwame Horta MD
--- NOTE | 2017-03-05 15:36 | CT ---
PROCEDURE: CT Chest with contrast HISTORY: lung abscess RUL oral candidiasis COMPARISON: Comparison is made with previous study dated 01/02/2017 TECHNIQUE: Contiguous axial images were obtained through the chest with intravenous contrast enhancement. Sagittal and coronal reconstructions were performed. IV contrast: 100 mL Omnipaque 300 Radiation dose (DLP): 227.03 mGy-cm. This CT exam was performed using one or more of the following dose reduction techniques: Automated exposure control, adjustment of the mA and/or kV according to patient size, and/or use of iterative reconstruction technique. FINDINGS: LUNGS: Interval resolving of the previously seen peripheral airspace consolidation at the right upper lobe since the previous exam. Interval decrease in the size of the cavitary lesion wall thickness since the previous study. The current disc study demonstrates thin wall cavitary lesion at the right upper lobe measures 6.4 centimeter in the largest AP diameter and 3.8 centimeter in the largest transverse diameter. There is a spiculated border opacity at the right upper lobe just inferior to the cavitary lesion measures 1.4 centimeter in the transverse diameter and 2.2 centimeter in the AP diameter. The possibility of neoplasm is not totally excluded. Moderate emphysematous changes are again noted. Re- demonstrated of focal opacity at the anterior aspect of the right middle lobe associated with mild focal bronchiectasis. MEDIASTINUM: Unremarkable thoracic aorta. No aneurysm or dissection. Normal sized heart. Main pulmonary artery unremarkable. No vascular congestion. Again seen are mildly enlarged mediastinal lymph nodes at the AP window and precarinal regions. No significant interval change noted since the previous exam. There is moderate thickening of the distal esophageal wall noted. PLEURA: No pleural fluid. No pneumothorax. BONES: No fracture. No destructive lesion. Moderate to mildly severe degenerative changes at the lower thoracic spine UPPER ABDOMEN: Grossly unremarkable. OTHER FINDINGS: None. IMPRESSION: Interval resolving of the previously seen airspace consolidation at the peripheral right upper lobe since the previous exam. Interval decrease in the thickness of the cavitary lesion wall since the previous exam. The current study demonstrates thin wall cavitary lesion at the right upper lobe. Spiculated border nodule/ small mass at the right upper lobe adjacent to the cavitary lesion measures 1.4 x 2.1 centimeter. The possibility of neoplasm is not totally excluded. [id number] emphysematous changes predominant in the upper lobes. Moderate thickening of the distal esophageal wall may be due to gastroesophageal reflux or esophagitis.
--- NOTE | 2017-03-05 16:32 | CP.PCM.CON ---
<Ceci Bhardwaj - Last Filed: 03/05/17 16:34> History of Present Illness - History of Present Illness History of Present Illness: Seen and examined at the bedside earlier today, the chart was reviewed. Request for GI consult is for evaluation for dysphagia/EGD. HPI: This is a 71-year-old male with a past medical history of end-stage COPD on home O2, basal cell carcinoma, melanoma and esophageal cancer, status post proton radiation treatment. Patient while at home had difficulty breathing after eating tuna fish sandwich, the patient felt that the food did not go down properly and the patient was reported to become anxious and couldn't breathe. The patient also had complaints of chest tightness with chills and runny nose, no reports of nausea, vomiting, hematemesis, abdominal pain or chest pain. This patient was seen by our service in the past. He didn't have complaints of dysphagia and had a esophagogram which was a poor study at the time. The patient last endoscopy was done in [place]. The patient is currently on a pur ed diet and is tolerating no current complaints of nausea, vomiting, or abdominal pain. the patient did have a chest x-ray on admission which shows a right cavitary lesion which was also seen back in previous x-ray in 2016 and reports no change.The patient is awaiting to go for a CT scan of the chest. Past medical history: End-stage COPD, esophageal cancer status post chemotherapy , coronary artery disease, basal cell carcinoma, melanoma Surgical history: Appendectomy, basal cell carcinoma removal, melanoma removal Family history: Noncontributory at this time Allergies: No known drug allergies Social history: Former heavy smoker quit greater than 15 years ago, denies drug use or EtOH Medications: Reviewed as per MAR ROS: Systems reviewed with positive findings see HPI. Past Patient History - Infectious Disease Hx of Infectious Diseases: None - Tetanus Immunizations Tetanus Immunization: Unknown - Past Social History Smoking Status: Former Smoker - CARDIAC Hx Cardiac Disorders: No Hx Pacemaker: No - PULMONARY Hx Respiratory Disorders: Yes Hx Chronic Obstructive Pulmonary Disease (COPD): Yes Hx Emphysema: Yes Hx Pneumonia: Yes - NEUROLOGICAL Hx Neurological Disorder: No - HEENT Hx HEENT Problems: Yes (reading glasses) Hx Cataracts: Yes (b/l cat sx) - RENAL Hx Chronic Kidney Disease: No - ENDOCRINE/METABOLIC Hx Endocrine Disorders: No - HEMATOLOGICAL/ONCOLOGICAL Hx Cancer: Yes (esophogeal CA/radiation) - INTEGUMENTARY Hx Dermatological Problems: Yes 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) Hx Melanoma: Yes (removed from back) Other/Comment: 09/2016 r buttock around to r groin - MUSCULOSKELETAL/RHEUMATOLOGICAL Hx Arthritis: Yes Hx Falls: No - GASTROINTESTINAL Hx Gastrointestinal Disorders: Yes - GENITOURINARY/GYNECOLOGICAL Hx Genitourinary Disorders: No Hx Prostate Problems: Yes (enlge) - PSYCHIATRIC Hx Anxiety: Yes Hx Substance Use: No - SURGICAL HISTORY Hx Surgeries: Yes Hx Appendectomy: Yes - ANESTHESIA Hx Anesthesia: Yes Hx Anesthesia Reactions: No Hx Malignant Hyperthermia: No Meds Allergies/Adverse Reactions: Allergies Allergy/AdvReac Type Severity Reaction Status Date / Time No Known Allergies Allergy Verified 03/03/17 15:11 - Medications Medications: Current Medications Acetylcysteine (Acetylcysteine 20%) 4 ml IH [id number] [facility] Last Admin: 03/05/17 13:34 Dose: 4 ml Albuterol Sulfate (Albuterol 0.083% Inhal Rylee (2.5 Mg/3 Ml) Ud) 2.5 mg INH Q4 PRN PRN Reason: Wheezing Albuterol/Ipratropium (Duoneb 3 Mg/0.5 Mg (3 Ml) Ud) 3 ml IH [id number] [facility] Last Admin: 03/05/17 13:34 Dose: 3 ml Alprazolam (Xanax) 0.25 mg PO BID PRN; Protocol PRN Reason: Anxiety Stop: 03/10/17 17:41 Last Admin: 03/05/17 09:20 Dose: 0.25 mg Aspirin (Ecotrin) 81 mg PO DAILY [facility] Last Admin: 03/05/17 09:11 Dose: 81 mg Budesonide (Pulmicort Respules) 0.5 mg IH [id number] [facility] Last Admin: 03/05/17 07:58 Dose: 0.5 mg Diazepam (Valium) 5 mg PO HS [facility] PRN Reason: Protocol Last Admin: 03/04/17 21:18 Dose: 5 mg Enoxaparin Sodium (Lovenox) 40 mg SC DAILY [facility] PRN Reason: Protocol Last Admin: 03/05/17 09:16 Dose: 40 mg Escitalopram Oxalate (Lexapro) 5 mg PO DAILY [facility] Last Admin: 03/05/17 09:15 Dose: 5 mg Levofloxacin/Dextrose (Levaquin 750mg) 750 mg in 150 mls @ 100 mls/hr IVPB DAILY [facility] PRN Reason: Protocol Last Admin: 03/05/17 09:13 Dose: 100 mls/hr Meropenem (Merrem Iv 1 Gm Premix) 50 mls @ 100 mls/hr IVPB Q8 [facility] PRN Reason: Protocol Stop: 03/13/17 06:01 Last Admin: 03/05/17 13:11 Dose: 100 mls/hr Methylprednisolone (Solu-Medrol) 40 mg IVP Q12 [facility] Last Admin: 03/05/17 09:19 Dose: 40 mg Pantoprazole Sodium (Protonix Ec Tab) 40 mg PO 0600 [facility] Last Admin: 03/05/17 05:14 Dose: 40 mg Pregabalin (Lyrica) 100 mg PO TID [facility] Last Admin: 03/05/17 13:11 Dose: 100 mg Sodium Chloride (Zimmerman Nasal [place]) 0 ml NS Q8 PRN PRN Reason: NASAL CONGESTION Last Admin: 03/04/17 18:59 Dose: 1 sprays Sucralfate (Carafate Oral Susp) 1 gm PO 0600,1600 [facility] Last Admin: 03/05/17 05:14 Dose: 1 gm Tamsulosin HCl (Flomax) 0.8 mg PO DAILY [facility] Last Admin: 03/05/17 09:13 Dose: 0.8 mg Tramadol/Acetaminophen (Ultracet 37.5/325 Mg) 1 tab PO Q12H PRN PRN Reason: Pain, moderate (4-7) Vitamin A (Vitamin A & D Oint Ud Foilpak) 1 ea TOP Q8H PRN PRN Reason: Dry nasal passages Last Admin: 03/03/17 21:38 Dose: 1 ea Physical Exam - Constitutional Appears: No Acute Distress - Eye Exam Eye Exam: Normal appearance. absent: Scleral icterus - ENT Exam ENT Exam: Mucous Membranes Moist - Neck Exam Neck exam: Positive for: Normal Inspection - Respiratory Exam Respiratory Exam: Decreased Breath Sounds, Rhonchi, NORMAL BREATHING PATTERN. absent: Respiratory Distress - Cardiovascular Exam Cardiovascular Exam: +S1, +S2 - GI/Abdominal Exam GI & Abdominal Exam: Normal Bowel Sounds, Organomegaly, Soft. absent: Guarding , Rebound, Tenderness - Extremities Exam Extremities exam: Positive for: pedal pulses present. Negative for: calf tenderness - Neurological Exam Neurological exam: Alert, Oriented x3 - Skin Skin Exam: Dry, Warm Results - Vital Signs Recent Vital Signs: Last Vital Signs Temp 97.5 F L 03/05/17 08:40 Pulse 125 H 03/05/17 10:00 Resp 21 03/05/17 08:40 BP 130/75 03/05/17 08:40 Pulse Ox 95 03/05/17 08:40 - Labs Result Diagrams: 03/05/17 07:40 03/05/17 07:40 Labs: Laboratory Results - last 24 hr 03/04/17 03/05/17 03/05/17 10:30 07:40 07:40 WBC 9.6 D RBC 3.49 L Hgb 9.4 L Hct 29.8 L MCV 85.4 MCH 26.9 MCHC 31.5 RDW 18.4 H Plt Count 210 MPV 8.8 Gran % 91.2 H Lymph % (Auto) 3.8 L Blair % (Auto) 5.0 Eos % (Auto) 0.0 L Baso % (Auto) 0.0 Gran # 8.75 H Lymph # 0.4 L Blair # 0.5 Eos # 0.0 Baso # 0.00 Sodium 137 Potassium 4.1 Chloride 102 Carbon Dioxide 31 Anion Gap 9 L BUN 15 Creatinine 0.5 L Est GFR ( Amer) > 60 Est GFR (Non-Af Amer) > 60 Random Glucose 115 H Calcium 9.8 Total Bilirubin 0.5 AST 17 D ALT 30 Alkaline Phosphatase 48 Total Protein 5.5 L Albumin 3.0 Globulin 2.5 Albumin/Globulin Ratio 1.2 Ur L.pneumophila Ag Negative Assessment & Plan - Assessment and Plan (Free Text) Assessment: Assessment: Dysphagia History of esophageal cancer End-stage COPD/emphysema History of basal cell carcinoma and melanoma Right lung cavitary lesion Anemia Plan: Follow-up CT scan of the chest Consider esophagogram after reviewing CT scan of the chest Recommend pured diet After review of CT scan and esophagogram will evaluate patient for endoscopy, patient is high risk for anesthesia. This was discussed with medical team. Continue GI prophylaxis, on Protonix DVT prophylaxis, on lovenox on Aspirin On Solumedrol IV antibiotics Thank you for this consult and for allowing us to participate in your patient's care, further recommendations based upon clinical course. Seen and discussed with Dr. Gardner. <Maribell Gardner V - Last Filed: 03/05/17 20:13> Meds - Medications Medications: Current Medications Acetylcysteine (Acetylcysteine 20%) 4 ml IH [id number] [facility] Last Admin: 03/05/17 13:34 Dose: 4 ml Albuterol Sulfate (Albuterol 0.083% Inhal Rylee (2.5 Mg/3 Ml) Ud) 2.5 mg INH Q4 PRN PRN Reason: Wheezing Albuterol/Ipratropium (Duoneb 3 Mg/0.5 Mg (3 Ml) Ud) 3 ml IH [id number] [facility] Last Admin: 03/05/17 13:34 Dose: 3 ml Alprazolam (Xanax) 0.25 mg PO BID PRN; Protocol PRN Reason: Anxiety Stop: 03/10/17 17:41 Last Admin: 03/05/17 09:20 Dose: 0.25 mg Aspirin (Ecotrin) 81 mg PO DAILY [facility] Last Admin: 03/05/17 09:11 Dose: 81 mg Budesonide (Pulmicort Respules) 0.5 mg IH [id number] [facility] Last Admin: 03/05/17 07:58 Dose: 0.5 mg Diazepam (Valium) 5 mg PO HS [facility] PRN Reason: Protocol Last Admin: 03/04/17 21:18 Dose: 5 mg Enoxaparin Sodium (Lovenox) 40 mg SC DAILY [facility] PRN Reason: Protocol Last Admin: 03/05/17 09:16 Dose: 40 mg Escitalopram Oxalate (Lexapro) 5 mg PO DAILY [facility] Last Admin: 03/05/17 09:15 Dose: 5 mg Levofloxacin/Dextrose (Levaquin 750mg) 750 mg in 150 mls @ 100 mls/hr IVPB DAILY [facility] PRN Reason: Protocol Last Admin: 03/05/17 09:13 Dose: 100 mls/hr Meropenem (Merrem Iv 1 Gm Premix) 50 mls @ 100 mls/hr IVPB Q8 [facility] PRN Reason: Protocol Stop: 03/13/17 06:01 Last Admin: 03/05/17 13:11 Dose: 100 mls/hr Methylprednisolone (Solu-Medrol) 40 mg IVP Q12 [facility] Last Admin: 03/05/17 09:19 Dose: 40 mg Pantoprazole Sodium (Protonix Ec Tab) 40 mg PO 0600 [facility] Last Admin: 03/05/17 05:14 Dose: 40 mg Pregabalin (Lyrica) 100 mg PO TID [facility] Last Admin: 03/05/17 17:00 Dose: 100 mg Sodium Chloride (Zimmerman Nasal [place]) 0 ml NS Q8 PRN PRN Reason: NASAL CONGESTION Last Admin: 03/04/17 18:59 Dose: 1 sprays Sucralfate (Carafate Oral Susp) 1 gm PO 0600,1600 [facility] Last Admin: 03/05/17 16:57 Dose: 1 gm Tamsulosin HCl (Flomax) 0.8 mg PO DAILY [facility] Last Admin: 03/05/17 09:13 Dose: 0.8 mg Tramadol/Acetaminophen (Ultracet 37.5/325 Mg) 1 tab PO Q12H PRN PRN Reason: Pain, moderate (4-7) Vitamin A (Vitamin A & D Oint Ud Foilpak) 1 ea TOP Q8H PRN PRN Reason: Dry nasal passages Last Admin: 03/03/17 21:38 Dose: 1 ea Results - Vital Signs Recent Vital Signs: Last Vital Signs Temp 98.6 F 03/05/17 16:00 Pulse 91 H 03/05/17 18:00 Resp 20 03/05/17 16:00 BP 108/55 L 03/05/17 16:00 Pulse Ox 90 L 03/05/17 16:00 - Labs Result Diagrams: 03/05/17 07:40 03/05/17 07:40 Labs: Laboratory Results - last 24 hr 03/05/17 03/05/17 07:40 07:40 WBC 9.6 D RBC 3.49 L Hgb 9.4 L Hct 29.8 L MCV 85.4 MCH 26.9 MCHC 31.5 RDW 18.4 H Plt Count 210 MPV 8.8 Gran % 91.2 H Lymph % (Auto) 3.8 L Blair % (Auto) 5.0 Eos % (Auto) 0.0 L Baso % (Auto) 0.0 Gran # 8.75 H Lymph # 0.4 L Blair # 0.5 Eos # 0.0 Baso # 0.00 Sodium 137 Potassium 4.1 Chloride 102 Carbon Dioxide 31 Anion Gap 9 L BUN 15 Creatinine 0.5 L Est GFR ( Amer) > 60 Est GFR (Non-Af Amer) > 60 Random Glucose 115 H Calcium 9.8 Total Bilirubin 0.5 AST 17 D ALT 30 Alkaline Phosphatase 48 Total Protein 5.5 L Albumin 3.0 Globulin 2.5 Albumin/Globulin Ratio 1.2 Attending/Attestation - Attestation I have personally seen and examined this patient.: Yes I have fully participated in the care of the patient.: Yes I have reviewed all pertinent clinical information: Yes Notes (Text): This is an addendum to GI cONSULTATION report dictated by Ceci Bhardwaj APN.The patient was seen and examined earlier. Medical records, lab studies, imagings were reviewed. Last 24 hours events reviewed. Agreed with the above treatment plan as outlined in Ceci Bhardwaj APN's notes the with the addition of the following patient still has some wheezing. Feels better On clear liquid diet scheduled for CT scan at the time of examination Discussed with the Dr. Srivastava, primary care nurse practitioner Is scheduled for esophagogram in a.m. 03/05/17 20:11
--- NOTE | 2017-03-05 16:47 | CP.PCM.PN ---
Subjective - Date & Time of Evaluation Date of Evaluation: 03/05/17 Time of Evaluation: 08:15 - Subjective Subjective: Patient seen and examined at bedside in no acute distress. Admits to sleeping well overnight. States he is able to breath better and is not as short of breath as when he was first admitted. States last bowel movement was a 10 p.m. last night and has been urinating well. Denies chest pain, shortness of breath, abdominal pain, nausea, vomiting, diarrhea, dizziness, headache, dysuria. Objective - Vital Signs/Intake and Output Vital Signs (last 24 hours): Temp Pulse Resp BP Pulse Ox 98.6 F 91 H 20 108/55 L 90 L 03/05/17 16:00 03/05/17 16:00 03/05/17 16:00 03/05/17 16:00 03/05/17 16:00 Intake and Output: 03/05/17 03/05/17 06:59 18:59 Intake Total 300 Output Total 500 Balance -200 - Medications Medications: Current Medications Acetylcysteine (Acetylcysteine 20%) 4 ml IH [id number] [facility] Last Admin: 03/05/17 13:34 Dose: 4 ml Albuterol Sulfate (Albuterol 0.083% Inhal Rylee (2.5 Mg/3 Ml) Ud) 2.5 mg INH Q4 PRN PRN Reason: Wheezing Albuterol/Ipratropium (Duoneb 3 Mg/0.5 Mg (3 Ml) Ud) 3 ml IH [id number] [facility] Last Admin: 03/05/17 13:34 Dose: 3 ml Alprazolam (Xanax) 0.25 mg PO BID PRN; Protocol PRN Reason: Anxiety Stop: 03/10/17 17:41 Last Admin: 03/05/17 09:20 Dose: 0.25 mg Aspirin (Ecotrin) 81 mg PO DAILY [facility] Last Admin: 03/05/17 09:11 Dose: 81 mg Budesonide (Pulmicort Respules) 0.5 mg IH [id number] [facility] Last Admin: 03/05/17 07:58 Dose: 0.5 mg Diazepam (Valium) 5 mg PO HS [facility] PRN Reason: Protocol Last Admin: 03/04/17 21:18 Dose: 5 mg Enoxaparin Sodium (Lovenox) 40 mg SC DAILY [facility] PRN Reason: Protocol Last Admin: 03/05/17 09:16 Dose: 40 mg Escitalopram Oxalate (Lexapro) 5 mg PO DAILY [facility] Last Admin: 03/05/17 09:15 Dose: 5 mg Levofloxacin/Dextrose (Levaquin 750mg) 750 mg in 150 mls @ 100 mls/hr IVPB DAILY [facility] PRN Reason: Protocol Last Admin: 03/05/17 09:13 Dose: 100 mls/hr Meropenem (Merrem Iv 1 Gm Premix) 50 mls @ 100 mls/hr IVPB Q8 [facility] PRN Reason: Protocol Stop: 03/13/17 06:01 Last Admin: 03/05/17 13:11 Dose: 100 mls/hr Methylprednisolone (Solu-Medrol) 40 mg IVP Q12 [facility] Last Admin: 03/05/17 09:19 Dose: 40 mg Pantoprazole Sodium (Protonix Ec Tab) 40 mg PO 0600 [facility] Last Admin: 03/05/17 05:14 Dose: 40 mg Pregabalin (Lyrica) 100 mg PO TID [facility] Last Admin: 03/05/17 13:11 Dose: 100 mg Sodium Chloride ([place] Nasal [place]) 0 ml NS Q8 PRN PRN Reason: NASAL CONGESTION Last Admin: 03/04/17 18:59 Dose: 1 sprays Sucralfate (Carafate Oral Susp) 1 gm PO 0600,1600 [facility] Last Admin: 03/05/17 05:14 Dose: 1 gm Tamsulosin HCl (Flomax) 0.8 mg PO DAILY [facility] Last Admin: 03/05/17 09:13 Dose: 0.8 mg Tramadol/Acetaminophen (Ultracet 37.5/325 Mg) 1 tab PO Q12H PRN PRN Reason: Pain, moderate (4-7) Vitamin A (Vitamin A & D Oint Ud Foilpak) 1 ea TOP Q8H PRN PRN Reason: Dry nasal passages Last Admin: 03/03/17 21:38 Dose: 1 ea - Labs Labs: 03/05/17 07:40 03/05/17 07:40 PT 9.8 SECONDS (9.4-12.5) 03/03/17 15:05 INR 0.90 (0.93-1.08) L 03/03/17 15:05 APTT 29.6 Seconds (25.1-36.5) 03/03/17 15:05 - Head Exam Head Exam: ATRAUMATIC, NORMAL INSPECTION, NORMOCEPHALIC - Eye Exam Eye Exam: EOMI, Normal appearance - ENT Exam ENT Exam: Mucous Membranes Moist, Normal Exam - Neck Exam Neck Exam: Full ROM, Normal Inspection - Respiratory Exam Respiratory Exam: Clear to Ausculation Bilateral, Rhonchi (lower lobes bilaterally, improved from yesterday), NORMAL BREATHING PATTERN - Cardiovascular Exam Cardiovascular Exam: REGULAR RHYTHM, +S1, +S2 - GI/Abdominal Exam GI & Abdominal Exam: Soft, Normal Bowel Sounds - Extremities Exam Extremities Exam: Full ROM - Back Exam Back Exam: NORMAL INSPECTION - Neurological Exam Neurological Exam: Alert, Awake, Oriented x3 - Psychiatric Exam Psychiatric exam: Normal Affect, Normal Mood - Skin Skin Exam: Intact, Normal Color, Warm Assessment and Plan - Assessment and Plan (Free Text) Assessment: Patient is a 71 year old male with past medical history of End-Stage COPD, invasive esophageal CA who was recently admitted for COPD exacerbation presents with worsening shortness of breath, cough with fevers and aspiration of food earlier. Currently treating Sepsis likely secondary to aspiration pneumonia and hypercapnic respiratory failure. Plan: 1. Sepsis secondary to Aspiration pneumonia -Patient reports aspirating earlier today on tuna fish sandwich. -Chest x ray showed a cavitary lesion in the right lung apex. Previous exam cavity much thicker at 5.5 cm. -Flu negative. -Patient given Cefepime, Flagyl and Vancomycin for coverage in the emergency department. -Patient has history of lung abscess. -Chest CT with IV contrast ordered; results pending -Strep pneumoniae antigen, Urine legionella antigen ordered;negative --Infectious disease on board; Patient already on Levaquin and Vancomycin. Meropenem added. -Swallow eval ordered. Will follow up with results. 2.Hypercapnic respiratory failure -VBG showed a pco2 of 62, however has improved, no longer retaining -BiPAP discontinued -Continue with mucomyst, albuterol, albuterol/ipratropium -Solumedrol 20 mg q12h -Pulmonary consulted -Transferred to telemtry 3.Invasive esophageal cancer -Proton radiation completed in October -Hematology/Oncology on board; CT chest ordered 4.Anxiety/Depression -continue home medications. GI ppx/DVT ppx -Protonix/Lovenox
[2017-03-05] MEDS: TraMADol/Apap 37.5/325 mg Tab PO PRN (21:11)
--- NOTE | 2017-03-05 23:50 | PN ---
DATE: 03/05/2017 This is [facility] visit on the medical floor. For Dr. Ferreira. SUBJECTIVE: The patient is a 71-year-old male seen sitting up in a chair with his at the bedside, with Dr. Srivastava, Pulmonology also present. 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 He also suffers from end-stage COPD on continuous oxygen also ASCVD. He is resting comfortably at this point in no acute distress. PHYSICAL EXAMINATION: VITAL SIGNS: Temperature of 98.6, pulse of 91, respirations of 20, blood pressure of 108/55 and pulse oximetry of 90%. HEENT: Unremarkable. Tongue is moist and midline. No coding at this time. NECK: Supple. HEART: Tachy rate, regular rhythm. LUNGS: Decreased breath sounds bilaterally, scattered rhonchi. ABDOMEN: Soft, scaphoid and nontender. EXTREMITIES: No edema. SKIN: Warm and dry. NEUROLOGIC: Awake, alert and oriented. LABORATORY DATA: The patient's labs were done. White blood cell count of 9.6, hemoglobin of 9.4, hematocrit of 29.8 and platelet count of 210,000. Chemistries, metabolic panel within normal limits except for nonfasting glucose of 115. His Legionella pneumophila antigen was negative along with influenza testing reported as negative. Blood cultures also negative at 48 hours. DIAGNOSTIC DATA: The patient did have a CT scan of his chest done earlier today with contrast. The impression was interval resolving of the previous seen airspace consolidation at the peripheral right upper lobe, interval decrease in the thickness of the cavitary lesion while since previous exam. The current study demonstrates thin wall cavitary lesion of the right upper lobe, speculated border nodule, small mass at the right upper lobe, adjacent to the cavitary lesion, possibility of neoplasm is not totally excluded, mild to moderate emphysematous changes predominantly in the upper lobes, moderate thickening of the distal esophageal wall may be due to gastroesophageal reflux or esophagitis. 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 PLAN: After conversation with Dr. Ferreira and Dr. Srivastava, he is to continue his present medical regimen. Once he is stable and discharged, we will ask for the PET CT scan as an outpatient with consideration for tissue diagnosis as indicated. He is to continue his present medical regimen. We will monitor clinically with labs. Prognosis for this patient is guarded. Abhijeet Vigil MD
--- NOTE | 2017-03-06 04:01 | PN ---
DATE: 03/05/2017 REFERRING PHYSICIAN: Dr. Gómez SUBJECTIVE: He is sitting on a chair by his bedside, feels little better. Decreased cough. Decreased shortness of breath. No nausea. No vomiting. No diarrhea. No leg pain or leg swelling. PHYSICAL EXAMINATION: GENERAL: Rufd-be-[id number] distress secondary cough and shortness of breath. VITAL SIGNS: Temperature 98, heart rate is 94, respiratory rate is 20, blood pressure 108/55, pulse ox 90% on 3 L nasal cannula. HEENT: Moist mucous membranes. No ulcer or thrush noted. NECK: Supple. No JVD. HEART: S1 and S2. LUNGS: Has a scattered rhonchi and wheezing. ABDOMEN: Soft and nontender. No organomegaly. EXTREMITIES: There is no edema. NEUROLOGIC: Awake and alert. Follows simple commands. LABORATORY DATA: Hemoglobin 9.4, hematocrit 29.8, WBC 9.6, platelet count is 210. Sodium 137, potassium 4.1, chloride 102, bicarbonate 31, BUN 15, creatinine 0.5, glucose 115, calcium is 9.8, AST is 17, ALT 30, alkaline phosphatase is 48, albumin is 3.0. Microbiology: Blood culture and urine culture is unremarkable. CAT scan of the chest done today shows resolved most of the pneumonia on the right lung, which was seen in the previous CT, still has right upper lobe size, which is smaller size of the cavitary lesion with wall thickness. There is spiculated border nodule adjacent to the cavitary, which is 1.4 x 2.1 cm. There are moderate emphysematous changes, moderate thickening of distal esophageal wall, may be due to gastroesophageal reflux or esophagitis. MEDICATIONS: He is on Mucomyst 20% inhaled q. 6 hours, albuterol/Atrovent nebulizer q. 4 hour p.r.n., Carafate 1 g twice a day, DuoNeb q. 6 hours round the clock, Ecotrin 81 mg daily, Flomax 0.8 mg daily, Levaquin 750 mg IV daily, Lexapro 5 mg daily, Lovenox 40 mg daily, Lyrica 100 mg 3 times a day, meropenem 1 g IV q. 8 hours, nasal saline q. 8 hours p.r.n., Protonix 40 mg daily, Pulmicort inhale twice a day, Solu-Medrol 40 mg q. 12 hours, tramadol/acetaminophen 37.5/325 one tablet q. 12 hours p.r.n., Valium 5 mg at bedtime, vitamin A and D to affected area q. 8 hours, Xanax 0.25 mg twice a day p.r.n. IMPRESSION AND PLAN: Chronic obstructive lung disease, cavitary lesion in the right upper lobe, has a lung nodule, history of lung cancer. In the past, he had pseudomonas infection, high risk for recurrent aspiration. Case discussed with Oncology team. Also, I spoke to Dr. Gardner in detail. I spoke to the patient's at the bedside. All the questions answered. Ideally, the patient needs a PET scan upon discharge as an outpatient to assure the right upper lobe lesion is not cancerous or metabolic active. Also, need to asses patency of esophagus. So after discussion with Dr. Gardner, decision was made to do esophagogram to assure there is no aspiration. If clinically allowed, may not be a bad idea to do a EGD to assess the esophagus. For now, continue antibiotics, bronchodilator, gastric prophylaxis, SCD to lower extremities. Thank you and we will follow with you. Jesika Srivastava MD
[2017-03-06] MEDS: Meropenem IV 1 gm in NS 50 ML IVPB SCH ×3 (06:27→22:35)
[2017-03-06] MEDS: Sucralfate 1 gm/10 ml Oral Susp UD PO SCH ×2 (06:27→17:05)
[2017-03-06] MEDS: Pantoprazole 40 mg EC Tab PO SCH (06:27)
[2017-03-06 07:41] LABS: GRAN # 8.15 (1.4-6.5); GRAN % 89.5 % (50.0-68.0); HEMATOCRIT 30.5 % (42.0-52.0); LYMPH # 0.5 (1.2-3.4); MEAN CELL VOLUME 85.7 fl (80.0-105.0); MEAN CORPUSCULAR HEMOGLOBIN 27.2 pg (25.0-35.0); MEAN CORPUSCULAR HGB CONC 31.8 g/dl (31.0-37.0); MEAN PLATELET VOLUME 8.9 fl (7.0-11.0); MONO # 0.5 (0.1-0.6); MONO % 5.5 % (1.0-6.0); RED CELL DISTRIBUTION WIDTH 18.4 % (11.5-14.5); WHITE BLOOD COUNT 9.1 10^3/ul (4.5-11.0)
[2017-03-06 07:56] LABS: ALKALINE PHOSPHATASE 52 U/L (38-126); ALT/SGPT 32 U/L (7-56); AST/SGOT 20 U/L (17-59); BILIRUBIN,TOTAL 0.4 mg/dL (0.2-1.3); BLOOD UREA NITROGEN 13 mg/dL (7-21); CARBON DIOXIDE 36 mmol/L (21-33); CHLORIDE 99 mmol/L (98-107); GFR AFRICAN-AMERICAN > 60; GLUCOSE,RANDOM 112 mg/dL (70-110); POTASSIUM 4.1 mmol/L (3.6-5.0); SODIUM 137 mmol/L (132-148); TOTAL PROTEIN 5.4 g/dL (5.8-8.3)
[2017-03-06 08:06] LABS: ALB/GLOB RATIO 1.2 (1.1-1.8)
[2017-03-06] MEDS: Budesonide 0.25 mg/2 ml Inhal Susp UD IH SCH ×2 (08:25→19:52)
[2017-03-06] MEDS: Acetylcysteine 20% Inhal Soln (4ml) IH SCH ×3 (08:26→19:51)
[2017-03-06] MEDS: Albuterol-Ipratrop 3 mg / 0.5 (3 ml) UD IH SCH ×3 (08:26→19:52)
[2017-03-06] MEDS: levoFLOXacin 750 mg in D5W 750 MG/150 ML BAG IVPB SCH (09:29)
[2017-03-06] MEDS: Enoxaparin 40 mg Syringe SC SCH (09:29)
[2017-03-06] MEDS: MethylPREDNISolone 40 mg Vial IVP SCH ×2 (09:29→22:36)
[2017-03-06] MEDS ORDERED: Barium Sulfate for Susp 96% w/w 176g Bottle PR ONE (11:53)
--- NOTE | 2017-03-06 12:49 | RAD ---
HISTORY: Dysphagia. COMPARISON: 01/10/2017 esophagram TECHNIQUE: Single contrast esophagram was performed. FINDINGS: Patient tolerated procedure well. ESOPHAGUS: The distal 1/4 the esophagus is grossly abnormal. Multiple intra mural/mural filling defects consistent with patient's known distal esophageal malignancy are present. A 12 mm posterior intramural filling defect -inferred nodular esophageal malignancy - is associated with caliber narrowing up to 1 cm. This most proximal esophageal narrowing is at least 1/3 of the esophageal lumen immediately above level. Most of the abnormal intramural filling neoplastic defects are distal to this - are circumferential - over the most distal 4 cm of the esophagus. At the GE junction, the 2nd distal esophageal narrowing -the severe wrist stenosis measures only 4 mm. HIATAL HERNIA: None demonstrated. GASTROESOPHAGEAL REFLUX: Not demonstrated. OTHER FINDINGS: None. IMPRESSION: Grossly abnormal distal esophagus -multiple nodular intramural neoplastic filling defects. Two areas of stenosis present as above. This is severe is narrowing is only 4 mm wide ovary 2.7 cm length. Patient is status post radiation for esophageal malignancy . No extravasation of contrast. No gross tracheobronchial aspiration. . Proximal trace laryngeal penetration is suggested per pooling in the piriform sinuses.
--- NOTE | 2017-03-06 13:42 | CP.PCM.PN ---
<Kendra,Kovil V - Last Filed: 03/06/17 23:14> Objective - Vital Signs/Intake and Output Vital Signs (last 24 hours): Temp Pulse Resp BP Pulse Ox 98.2 F 95 H 18 111/65 90 L 03/06/17 16:00 03/06/17 22:55 03/06/17 16:00 03/06/17 16:00 03/06/17 16:00 Intake and Output: 03/06/17 03/07/17 18:59 06:59 Intake Total 0 660 Output Total 600 1000 Balance -600 -340 - Medications Medications: Current Medications Acetylcysteine (Acetylcysteine 20%) 4 ml IH [id number] [facility] Last Admin: 03/06/17 19:51 Dose: 4 ml Albuterol Sulfate (Albuterol 0.083% Inhal Rylee (2.5 Mg/3 Ml) Ud) 2.5 mg INH Q4 PRN PRN Reason: Wheezing Albuterol/Ipratropium (Duoneb 3 Mg/0.5 Mg (3 Ml) Ud) 3 ml IH [id number] [facility] Last Admin: 03/06/17 19:52 Dose: 3 ml Alprazolam (Xanax) 0.25 mg PO BID PRN; Protocol PRN Reason: Anxiety Stop: 03/10/17 17:41 Last Admin: 03/05/17 09:20 Dose: 0.25 mg Aspirin (Ecotrin) 81 mg PO DAILY [facility] Last Admin: 03/06/17 09:30 Dose: 81 mg Budesonide (Pulmicort Respules) 0.5 mg IH [id number] [facility] Last Admin: 03/06/17 19:52 Dose: 0.5 mg Diazepam (Valium) 5 mg PO HS [facility] PRN Reason: Protocol Last Admin: 03/06/17 22:37 Dose: 5 mg Enoxaparin Sodium (Lovenox) 40 mg SC DAILY [facility] PRN Reason: Protocol Last Admin: 03/06/17 09:29 Dose: 40 mg Escitalopram Oxalate (Lexapro) 5 mg PO DAILY [facility] Last Admin: 03/06/17 09:30 Dose: 5 mg Levofloxacin/Dextrose (Levaquin 750mg) 750 mg in 150 mls @ 100 mls/hr IVPB DAILY [facility] PRN Reason: Protocol Last Admin: 03/06/17 09:29 Dose: 100 mls/hr Meropenem (Merrem Iv 1 Gm Premix) 50 mls @ 100 mls/hr IVPB Q8 [facility] PRN Reason: Protocol Stop: 03/13/17 06:01 Last Admin: 03/06/17 22:35 Dose: 100 mls/hr Methylprednisolone (Solu-Medrol) 20 mg IVP Q12 [facility] Last Admin: 03/06/17 22:36 Dose: 20 mg Pantoprazole Sodium (Protonix Ec Tab) 40 mg PO 0600 [facility] Last Admin: 03/06/17 06:27 Dose: 40 mg Pregabalin (Lyrica) 100 mg PO TID [facility] Last Admin: 03/06/17 17:05 Dose: 100 mg Sodium Chloride ([place] Nasal [place]) 0 ml NS Q8 PRN PRN Reason: NASAL CONGESTION Last Admin: 03/04/17 18:59 Dose: 1 sprays Sucralfate (Carafate Oral Susp) 1 gm PO 0600,1600 [facility] Last Admin: 03/06/17 17:05 Dose: 1 gm Tamsulosin HCl (Flomax) 0.8 mg PO DAILY [facility] Last Admin: 03/06/17 09:30 Dose: 0.8 mg Tramadol/Acetaminophen (Ultracet 37.5/325 Mg) 1 tab PO Q12H PRN PRN Reason: Pain, moderate (4-7) Last Admin: 03/06/17 22:43 Dose: 1 tab Vitamin A (Vitamin A & D Oint Ud Foilpak) 1 ea TOP Q8H PRN PRN Reason: Dry nasal passages Last Admin: 03/03/17 21:38 Dose: 1 ea - Labs Labs: 03/06/17 07:30 03/06/17 07:30 PT 9.8 SECONDS (9.4-12.5) 03/03/17 15:05 INR 0.90 (0.93-1.08) L 03/03/17 15:05 APTT 29.6 Seconds (25.1-36.5) 03/03/17 15:05 Attending/Attestation - Attestation I have personally seen and examined this patient.: Yes I have fully participated in the care of the patient.: Yes I have reviewed all pertinent clinical information, including history, physical exam and plan: Yes Notes (Text): This is an addendum to GI progress report dictated by Ceci Bhardwaj APN.The patient was seen and examined earlier. Medical records, lab studies, imagings were reviewed. Last 24 hours events reviewed. Agreed with the above treatment plan as outlined in Ceci Bhardwaj APN's notes the with the addition of the following The esophagram was reviewed to narrowing stricture points noticed the distal stricture was very narrow. Clinically patient appears more comfortable Less wheezing. Speech therapy swallowing evaluation noted The real concern is in view of the significant stricture and radiation therapy the stricture may not be pliable for distention with the solid food if it is not chewed well. The safest thing at this present time with the patient history of severe aspiration pneumonia as he is to continue pured diet I had a detailed discussion with the patient's and fully explained her 's condition she understood. Would recommend to continue long-term thin pured diet with the nutritional supplements. 03/06/17 23:15 <Ceci Bhardwaj - Last Filed: 03/07/17 17:32> Subjective - Date & Time of Evaluation Date of Evaluation: 03/06/17 Time of Evaluation: 10:10 - Subjective Subjective: Seen and examined at the bedside earlier today, the chart was reviewed. Patient denies nausea, vomiting, or abdominal pain. Tolerating liquid diet complaints of dysphagia. Awaiting to go for esophagogram. Last BM was yesterday no reports of diarrhea or overt GI bleed. Objective - Vital Signs/Intake and Output Vital Signs (last 24 hours): Temp Pulse Resp BP Pulse Ox 98.3 F 102 H 22 127/79 93 L 03/06/17 06:00 03/06/17 10:00 03/06/17 06:00 03/06/17 06:00 03/06/17 06:00 Intake and Output: 03/06/17 03/06/17 06:59 18:59 Intake Total 360 0 Output Total 200 600 Balance 160 -600 - Medications Medications: Current Medications Acetylcysteine (Acetylcysteine 20%) 4 ml IH [id number] [facility] Last Admin: 03/06/17 08:26 Dose: 4 ml Albuterol Sulfate (Albuterol 0.083% Inhal Rylee (2.5 Mg/3 Ml) Ud) 2.5 mg INH Q4 PRN PRN Reason: Wheezing Albuterol/Ipratropium (Duoneb 3 Mg/0.5 Mg (3 Ml) Ud) 3 ml IH [id number] [facility] Last Admin: 03/06/17 08:26 Dose: 3 ml Alprazolam (Xanax) 0.25 mg PO BID PRN; Protocol PRN Reason: Anxiety Stop: 03/10/17 17:41 Last Admin: 03/05/17 09:20 Dose: 0.25 mg Aspirin (Ecotrin) 81 mg PO DAILY [facility] Last Admin: 03/06/17 09:30 Dose: 81 mg Budesonide (Pulmicort Respules) 0.5 mg IH [id number] [facility] Last Admin: 03/05/17 21:04 Dose: 0.5 mg Diazepam (Valium) 5 mg PO HS [facility] PRN Reason: Protocol Last Admin: 03/05/17 21:12 Dose: 5 mg Enoxaparin Sodium (Lovenox) 40 mg SC DAILY [facility] PRN Reason: Protocol Last Admin: 03/06/17 09:29 Dose: 40 mg Escitalopram Oxalate (Lexapro) 5 mg PO DAILY [facility] Last Admin: 03/06/17 09:30 Dose: 5 mg Levofloxacin/Dextrose (Levaquin 750mg) 750 mg in 150 mls @ 100 mls/hr IVPB DAILY [facility] PRN Reason: Protocol Last Admin: 03/06/17 09:29 Dose: 100 mls/hr Meropenem (Merrem Iv 1 Gm Premix) 50 mls @ 100 mls/hr IVPB Q8 [facility] PRN Reason: Protocol Stop: 03/13/17 06:01 Last Admin: 03/06/17 06:27 Dose: 100 mls/hr Methylprednisolone (Solu-Medrol) 20 mg IVP Q12 [facility] Last Admin: 03/06/17 09:29 Dose: 20 mg Pantoprazole Sodium (Protonix Ec Tab) 40 mg PO 0600 [facility] Last Admin: 03/06/17 06:27 Dose: 40 mg Pregabalin (Lyrica) 100 mg PO TID [facility] Last Admin: 03/06/17 09:30 Dose: 100 mg Sodium Chloride ([place] Nasal [place]) 0 ml NS Q8 PRN PRN Reason: NASAL CONGESTION Last Admin: 03/04/17 18:59 Dose: 1 sprays Sucralfate (Carafate Oral Susp) 1 gm PO 0600,1600 [facility] Last Admin: 03/06/17 06:27 Dose: 1 gm Tamsulosin HCl (Flomax) 0.8 mg PO DAILY [facility] Last Admin: 03/06/17 09:30 Dose: 0.8 mg Tramadol/Acetaminophen (Ultracet 37.5/325 Mg) 1 tab PO Q12H PRN PRN Reason: Pain, moderate (4-7) Last Admin: 03/05/17 21:11 Dose: 1 tab Vitamin A (Vitamin A & D Oint Ud Foilpak) 1 ea TOP Q8H PRN PRN Reason: Dry nasal passages Last Admin: 03/03/17 21:38 Dose: 1 ea - Labs Labs: 03/06/17 07:30 03/06/17 07:30 PT 9.8 SECONDS (9.4-12.5) 03/03/17 15:05 INR 0.90 (0.93-1.08) L 03/03/17 15:05 APTT 29.6 Seconds (25.1-36.5) 03/03/17 15:05 - Constitutional Appears: No Acute Distress - Head Exam Head Exam: NORMOCEPHALIC - Eye Exam Eye Exam: Normal appearance. absent: Scleral icterus - ENT Exam ENT Exam: Mucous Membranes Moist - Neck Exam Neck Exam: Normal Inspection - Respiratory Exam Respiratory Exam: Rhonchi, NORMAL BREATHING PATTERN. absent: Respiratory Distress - GI/Abdominal Exam GI & Abdominal Exam: Soft, Normal Bowel Sounds. absent: Guarding, Tenderness, Rebound - Extremities Exam Extremities Exam: Pedal Edema - Back Exam Back Exam: absent: CVA tenderness (L) - Neurological Exam Neurological Exam: Alert, Awake, Oriented x3 - Skin Skin Exam: Dry, Warm Assessment and Plan - Assessment and Plan (Free Text) Assessment: Assessment: Dysphagia History of esophageal cancer End-stage COPD/emphysema History of basal cell carcinoma and melanoma Right lung cavitary lesion Anemia Plan: on clears FU esophagogram Continue GI prophylaxis, on Protonix DVT prophylaxis, on lovenox on Aspirin On Solumedrol IV antibiotics After review of CT scan and esophagogram will evaluate patient for endoscopy, patient is high risk for anesthesia. This was discussed with medical team and patient is aware as well. Seen and discussed with Dr. Gardner.
--- NOTE | 2017-03-06 16:23 | CP.PCM.PN ---
<Diaz Nelson - Last Filed: 03/06/17 16:18> Subjective - Date & Time of Evaluation Date of Evaluation: 03/06/17 Time of Evaluation: 06:30 - Subjective Subjective: Patient seen and examined at bedside in no acute distress. Esophagram done today. Patient was seen sitting up in chair eating breakfast. Denies shortness of breath stating it has improved since being admitted. Discussed with patient use of oxygen at home and medications for COPD he states he has had COPD for 12 years and knows very well how to use his medications and states he also has a visiting nurse that comes in weekly. Denies shortness of breath, chest pain, abdominal pain, dysuria, nausea, vomiting, diarrhea. Objective - Vital Signs/Intake and Output Vital Signs (last 24 hours): Temp Pulse Resp BP Pulse Ox 98.3 F 102 H 22 127/79 93 L 03/06/17 06:00 03/06/17 10:00 03/06/17 06:00 03/06/17 06:00 03/06/17 06:00 Intake and Output: 03/06/17 03/06/17 06:59 18:59 Intake Total 360 0 Output Total 200 600 Balance 160 -600 - Medications Medications: Current Medications Acetylcysteine (Acetylcysteine 20%) 4 ml IH [id number] [facility] Last Admin: 03/06/17 15:03 Dose: 4 ml Albuterol Sulfate (Albuterol 0.083% Inhal Rylee (2.5 Mg/3 Ml) Ud) 2.5 mg INH Q4 PRN PRN Reason: Wheezing Albuterol/Ipratropium (Duoneb 3 Mg/0.5 Mg (3 Ml) Ud) 3 ml IH [id number] [facility] Last Admin: 03/06/17 15:03 Dose: 3 ml Alprazolam (Xanax) 0.25 mg PO BID PRN; Protocol PRN Reason: Anxiety Stop: 03/10/17 17:41 Last Admin: 03/05/17 09:20 Dose: 0.25 mg Aspirin (Ecotrin) 81 mg PO DAILY [facility] Last Admin: 03/06/17 09:30 Dose: 81 mg Budesonide (Pulmicort Respules) 0.5 mg IH [id number] [facility] Last Admin: 03/06/17 08:25 Dose: 0.5 mg Diazepam (Valium) 5 mg PO HS [facility] PRN Reason: Protocol Last Admin: 03/05/17 21:12 Dose: 5 mg Enoxaparin Sodium (Lovenox) 40 mg SC DAILY [facility] PRN Reason: Protocol Last Admin: 03/06/17 09:29 Dose: 40 mg Escitalopram Oxalate (Lexapro) 5 mg PO DAILY [facility] Last Admin: 03/06/17 09:30 Dose: 5 mg Levofloxacin/Dextrose (Levaquin 750mg) 750 mg in 150 mls @ 100 mls/hr IVPB DAILY [facility] PRN Reason: Protocol Last Admin: 03/06/17 09:29 Dose: 100 mls/hr Meropenem (Merrem Iv 1 Gm Premix) 50 mls @ 100 mls/hr IVPB Q8 [facility] PRN Reason: Protocol Stop: 03/13/17 06:01 Last Admin: 03/06/17 13:42 Dose: 100 mls/hr Methylprednisolone (Solu-Medrol) 20 mg IVP Q12 [facility] Last Admin: 03/06/17 09:29 Dose: 20 mg Pantoprazole Sodium (Protonix Ec Tab) 40 mg PO 0600 [facility] Last Admin: 03/06/17 06:27 Dose: 40 mg Pregabalin (Lyrica) 100 mg PO TID [facility] Last Admin: 03/06/17 13:44 Dose: 100 mg Sodium Chloride ([place] Nasal [place]) 0 ml NS Q8 PRN PRN Reason: NASAL CONGESTION Last Admin: 03/04/17 18:59 Dose: 1 sprays Sucralfate (Carafate Oral Susp) 1 gm PO 0600,1600 [facility] Last Admin: 03/06/17 06:27 Dose: 1 gm Tamsulosin HCl (Flomax) 0.8 mg PO DAILY [facility] Last Admin: 03/06/17 09:30 Dose: 0.8 mg Tramadol/Acetaminophen (Ultracet 37.5/325 Mg) 1 tab PO Q12H PRN PRN Reason: Pain, moderate (4-7) Last Admin: 03/05/17 21:11 Dose: 1 tab Vitamin A (Vitamin A & D Oint Ud Foilpak) 1 ea TOP Q8H PRN PRN Reason: Dry nasal passages Last Admin: 03/03/17 21:38 Dose: 1 ea - Labs Labs: 03/06/17 07:30 03/06/17 07:30 PT 9.8 SECONDS (9.4-12.5) 03/03/17 15:05 INR 0.90 (0.93-1.08) L 03/03/17 15:05 APTT 29.6 Seconds (25.1-36.5) 03/03/17 15:05 - Constitutional Appears: Non-toxic, No Acute Distress - Head Exam Head Exam: ATRAUMATIC, NORMAL INSPECTION, NORMOCEPHALIC - Eye Exam Eye Exam: EOMI, Normal appearance - ENT Exam ENT Exam: Mucous Membranes Moist, Normal Exam - Respiratory Exam Respiratory Exam: Clear to Ausculation Bilateral, Rhonchi (lower lobes bilaterally; improving), NORMAL BREATHING PATTERN - Cardiovascular Exam Cardiovascular Exam: REGULAR RHYTHM, +S1, +S2 - GI/Abdominal Exam GI & Abdominal Exam: Soft, Normal Bowel Sounds - Rectal Exam Rectal Exam: NORMAL INSPECTION - Extremities Exam Extremities Exam: Full ROM - Neurological Exam Neurological Exam: Alert, Awake, Oriented x3 - Psychiatric Exam Psychiatric exam: Normal Affect, Normal Mood - Skin Skin Exam: Intact, Normal Color, Warm Assessment and Plan - Assessment and Plan (Free Text) Assessment: Patient is a 71 year old male with past medical history of End-Stage COPD, invasive esophageal CA who was recently admitted for COPD exacerbation presents with worsening shortness of breath, cough with fevers and aspiration of food earlier. Currently treating Sepsis likely secondary to aspiration pneumonia and hypercapnic respiratory failure. Plan: 1. Sepsis secondary to Aspiration pneumonia -Patient reports aspirating on tuna fish sandwich. -Chest x ray showed a cavitary lesion in the right lung apex. Previous exam cavity much thicker at 5.5 cm. -Chest CT with IV contrast ordered;New CT chest ordered reveals interval resolving of previously seen airspace consolidation at the peripheral right upper lobe since previous exam, interval decrease in thickness of cavitary lesions wall since previous exam: current study demonstrates thin wall cavitary lesion at right upper lobe. Spiculated border nodule/small mass at the right upper lobe adjacent to the cavitary lesions measures 1.4 x 2.1 cm. The possibility of neoplasm is not totally excluded. Mild to moderate emphysematou changes predominant in the upper lobes, moderate thickening of the distal esophageal wall may be due to gastroesophageal reflux or esophagitis. -Strep pneumoniae antigen, Urine legionella antigen ordered;negative --Infectious disease on board; continue with levaquin, vancomycin, meropenem -Swallow eval ordered; grossly abnormal distla esophagus-multiple nodlar intramural neoplastic filling defects. 2 areas of stenosis present above. Severe narrowing 4 mm wide, 2.7 cm length. No extravasatin of contrast, no gross tracheobronchial aspiration, proximal trace laryngela penetration suggested per pooling in the piriform sinuses. 2.Hypercapnic respiratory failure -BiPAP discontinued, transferred to telemetry -Continue with mucomyst, albuterol, albuterol/ipratropium -Solumedrol 20 mg q12h 3.Invasive esophageal cancer -Proton radiation completed in October -Hematology/Oncology on board; will follow up with recommendations 4.Anxiety/Depression -continue home medications. GI ppx/DVT ppx -Protonix/Lovenox <Fer Orozco - Last Filed: 03/06/17 16:47> Objective - Vital Signs/Intake and Output Vital Signs (last 24 hours): Temp Pulse Resp BP Pulse Ox 98.3 F 102 H 22 127/79 93 L 03/06/17 06:00 03/06/17 10:00 03/06/17 06:00 03/06/17 06:00 03/06/17 06:00 Intake and Output: 03/06/17 03/06/17 06:59 18:59 Intake Total 360 0 Output Total 200 600 Balance 160 -600 - Medications Medications: Current Medications Acetylcysteine (Acetylcysteine 20%) 4 ml IH [id number] [facility] Last Admin: 03/06/17 15:03 Dose: 4 ml Albuterol Sulfate (Albuterol 0.083% Inhal Rylee (2.5 Mg/3 Ml) Ud) 2.5 mg INH Q4 PRN PRN Reason: Wheezing Albuterol/Ipratropium (Duoneb 3 Mg/0.5 Mg (3 Ml) Ud) 3 ml IH [id number] [facility] Last Admin: 03/06/17 15:03 Dose: 3 ml Alprazolam (Xanax) 0.25 mg PO BID PRN; Protocol PRN Reason: Anxiety Stop: 03/10/17 17:41 Last Admin: 03/05/17 09:20 Dose: 0.25 mg Aspirin (Ecotrin) 81 mg PO DAILY [facility] Last Admin: 03/06/17 09:30 Dose: 81 mg Budesonide (Pulmicort Respules) 0.5 mg IH [id number] [facility] Last Admin: 03/06/17 08:25 Dose: 0.5 mg Diazepam (Valium) 5 mg PO HS [facility] PRN Reason: Protocol Last Admin: 03/05/17 21:12 Dose: 5 mg Enoxaparin Sodium (Lovenox) 40 mg SC DAILY [facility] PRN Reason: Protocol Last Admin: 03/06/17 09:29 Dose: 40 mg Escitalopram Oxalate (Lexapro) 5 mg PO DAILY [facility] Last Admin: 03/06/17 09:30 Dose: 5 mg Levofloxacin/Dextrose (Levaquin 750mg) 750 mg in 150 mls @ 100 mls/hr IVPB DAILY [facility] PRN Reason: Protocol Last Admin: 03/06/17 09:29 Dose: 100 mls/hr Meropenem (Merrem Iv 1 Gm Premix) 50 mls @ 100 mls/hr IVPB Q8 [facility] PRN Reason: Protocol Stop: 03/13/17 06:01 Last Admin: 03/06/17 13:42 Dose: 100 mls/hr Methylprednisolone (Solu-Medrol) 20 mg IVP Q12 [facility] Last Admin: 03/06/17 09:29 Dose: 20 mg Pantoprazole Sodium (Protonix Ec Tab) 40 mg PO 0600 [facility] Last Admin: 03/06/17 06:27 Dose: 40 mg Pregabalin (Lyrica) 100 mg PO TID [facility] Last Admin: 03/06/17 13:44 Dose: 100 mg Sodium Chloride ([place] Nasal [place]) 0 ml NS Q8 PRN PRN Reason: NASAL CONGESTION Last Admin: 03/04/17 18:59 Dose: 1 sprays Sucralfate (Carafate Oral Susp) 1 gm PO 0600,1600 [facility] Last Admin: 03/06/17 06:27 Dose: 1 gm Tamsulosin HCl (Flomax) 0.8 mg PO DAILY [facility] Last Admin: 03/06/17 09:30 Dose: 0.8 mg Tramadol/Acetaminophen (Ultracet 37.5/325 Mg) 1 tab PO Q12H PRN PRN Reason: Pain, moderate (4-7) Last Admin: 03/05/17 21:11 Dose: 1 tab Vitamin A (Vitamin A & D Oint Ud Foilpak) 1 ea TOP Q8H PRN PRN Reason: Dry nasal passages Last Admin: 03/03/17 21:38 Dose: 1 ea - Labs Labs: 03/06/17 07:30 03/06/17 07:30 PT 9.8 SECONDS (9.4-12.5) 03/03/17 15:05 INR 0.90 (0.93-1.08) L 03/03/17 15:05 APTT 29.6 Seconds (25.1-36.5) 03/03/17 15:05 Attending/Attestation - Attestation I have personally seen and examined this patient.: Yes I have fully participated in the care of the patient.: Yes I have reviewed all pertinent clinical information, including history, physical exam and plan: Yes Notes (Text): 1. Sepsis secondary to Aspiration pneumonia 2.Hypercapnic respiratory failure - COPD exacerbation 3.Invasive esophageal cancer 4.Anxiety/Depression Follow up esophagram
--- NOTE | 2017-03-06 19:33 | PN ---
DATE: 03/06/2017 PULMONARY PROGRESS NOTE REFERRING PHYSICIAN: Dr. Rg Velasco/ . SUBJECTIVE: The patient is sitting up in a chair. Night was unremarkable, feels better, still has cough, shortness of breath status post esophagogram. No nausea, no vomiting, no diarrhea. No leg pain or leg swelling. OBJECTIVE: GENERAL: In no acute distress. VITAL SIGNS: Temperature is 98, heart rate is 76, respiratory rate is 20, blood pressure is 127/79 and pulse oximetry 93% on 3 L nasal cannula. HEENT: Moist mucous membranes. Crowded airway. NECK: Supple. No JVD. LUNGS: Have a few crackles, prolonged expiratory phase. HEART: S1 and S2. ABDOMEN: Soft and nontender. No organomegaly. EXTREMITIES: There is no edema. NEUROLOGIC: Awake, alert and follows simple command. MEDICATIONS: He is on Mucomyst 20% 4 mL q.6 hours, albuterol/Atrovent nebulizer q.4 hours, Carafate 1 g twice a day, DuoNeb q.6 hours, Ecotrin 81 mg daily, Flomax 0.8 mg daily, Levaquin 750 mg daily, Lexapro 5 mg daily, Lovenox 40 mg subq daily, Lyrica 100 mg 3 times a day, meropenem 1 g IV q.8 hours, nasal saline 2 sprays each nostril q.6 hours, Protonix 40 mg daily, Pulmicort inhaled twice a day, Solu-Medrol 20 mg q.12 hours, tramadol/acetaminophen 37.5/325 one tablet q.12 hours p.r.n., valium 5 mg at bedtime, vitamin A and D at affected area, and Xanax 0.25 mg twice a day p.r.n.. LABORATORY DATA: Shows hemoglobin 9.7, hematocrit 30.5, WBC 9.1 and platelet count is 205. Sodium 137, potassium 4.1, chloride 99, bicarbonate is 36, BUN 13, creatinine 0.5, glucose 112, calcium 10. AST 20, ALT 32, alk phos is 52 and albumin is 3.0. Microbiology; blood culture and urine culture, there is no growth. Has an esophagogram done today. Impression shows grossly abnormal distal esophagus, multiple nodular intraluminal neoplastic filling defects, 2 areas of stenosis present, and there is a severe narrowing, is only 4 mm wide and 2.7 cm length. IMPRESSION AND PLAN: Chronic obstructive lung disease, has a cavitary lesion in the right upper lobe, has also nodule, has an esophageal cancer, in the past he had Pseudomonas infection, recurrent aspiration. Spoke to the patient's in length about esophagogram. The patient being followed by Dr. Gardner. decision next intervention, is a high risk respiration. Advised the patient to sit up at least 2 hours after eating, to eat more softer mechanical food. Continue IV and inhaled bronchodilator. Thank you, and we will follow with you. Jesika Srivastava MD
[2017-03-06] MEDS: TraMADol/Apap 37.5/325 mg Tab PO PRN (22:43)
[2017-03-07] MEDS: Acetylcysteine 20% Inhal Soln (4ml) IH SCH ×3 (01:08→14:41)
--- NOTE | 2017-03-07 01:17 | PN ---
DATE: 03/06/2017 This is [facility] on the medical floor. For Dr. Ferreira SUBJECTIVE: The patient is a 71-year-old male, seen sitting up in a chair having nebulizer treatments as per Dr. Srivastava's recommendation, in no acute distress, status post barium swallow earlier today with recommendations from Dr. Gardner, Gastrointestinal clinical program consultant for a pureed only diet due to significant findings on the testing. The esophagogram was compared to the one from 01/10/2017 with the impression that of grossly abnormal distal esophagus, multiple nodular intramural neoplastic filling defects, 2 areas of stenosis present as noted above, this is severe narrowing, is 4 mm wide and 2.7 cm in length. The patient is status post radiation for esophageal malignancy. No extravasational contrast. No gross tracheobronchial aspiration, proximal trace laryngeal penetration suggested in the pyriform sinuses . The patient is aware of this with the at the bedside and is in no acute distress at this time. PHYSICAL EXAMINATION GENERAL: Appears cachectic. VITAL SIGNS: Temperature 98.2, pulse 100, respirations 18, blood pressure 111/65, pulse ox 90%. HEENT: Unremarkable. NECK: Supple. HEART: Tachy rate, regular rhythm. LUNGS: Decreased breath sounds, scattered rhonchi. ABDOMEN: Soft, scaphoid, nontender. EXTREMITIES: No edema. SKIN: Warm and dry. NEUROLOGIC: Awake, alert, and oriented with oxygen on. LABORATORY DATA: Patient's labs were done. White blood cell count of 9.1, hemoglobin 9.7, hematocrit 30.5, platelet count of 205,000 with chem metabolic panel showing a carbon dioxide of 36 with a BUN of 13, creatinine 0.5. Otherwise, normal chem metabolic panel. His esophagus x-ray is as above. ASSESSMENT: Healthcare-associated pneumonia, cavitary lesion of lung, end-stage chronic obstructive pulmonary disease, hypoxemia, [id number] adenocarcinoma of the esophagus, suspicious lesion of the lung with PET-CT recommended in the future, cachexia of malignancy, history of depression, narrowing of the esophagus. PLAN: The patient has consultation with Dr. Ferreira, who spoke with Dr. Gardner, is to continue the strict pureed diet with the antibiotics. Continue as per Dr. Horta with respiratory support as per Dr. Srivastava. No EGD planned at present. A PET-CT scan recommended as an outpatient versus a biopsy for suspicious area on his recent CT scan of the chest. We will monitor clinically with labs. Prognosis for this patient is guarded. Abhijeet Vigil MD
--- NOTE | 2017-03-07 02:32 | PN ---
DATE: 03/06/2017 SUBJECTIVE: The patient is in bed, in no acute distress. The patient was seen earlier this morning in room 367. PHYSICAL EXAMINATION: VITAL SIGNS: Temperature is 98, blood pressure is 111/60, respiratory rate of 18. HEENT: Unremarkable. NECK: Supple. LUNGS: Have decreased breath sounds. HEART: Normal S1, S2. ABDOMEN: Soft, nontender. LABORATORY EXAMINATION: Reveals a white count of 9.1, hemoglobin of 9.7, platelets of 205. BUN of 13, creatinine of 0.5. Procalcitonin is 0.16. Influenza is negative. Urine for Legionella antigen is negative. Microbiology reveals the blood cultures are no growth, the nares is not detected. ASSESSMENT AND PLAN: This is a 71-year-old male with end-stage chronic obstructive lung disease, emphysema, on home O2 therapy, heavy smoker, basal cell cancer, coronary artery disease, esophageal cancer, who had Pseudomonas in lung cavity, pyogenic abscess. On this admission, the patient was admitted with severe sepsis, healthcare-associated pneumonia and with urine for Legionella is negative and influenza is negative. Procalcitonin is negative and the blood cultures are reported to be no growth in 3 days. The patient had an esophagus x-ray today because of dysphagia, distal one-fourth of the esophagus is grossly abnormal, multiple intramural filling defects. Known case of esophageal malignancy. The patient is currently on meropenem and Levaquin. A CAT scan of the chest, there is interval result in a previously seen perihilar airspace consolidation and an interval decrease in size of the cavitary lesion and wall thickness. Dr. Srivastava's note is reviewed. We will follow with you. Kwame Horta MD
[2017-03-07] MEDS: Pantoprazole 40 mg EC Tab PO SCH (05:27)
[2017-03-07] MEDS: Sucralfate 1 gm/10 ml Oral Susp UD PO SCH ×2 (05:27→17:06)
[2017-03-07] MEDS: Meropenem IV 1 gm in NS 50 ML IVPB SCH ×2 (05:38→13:49)
[2017-03-07 07:26] LABS: EOS % 0.1 % (1.5-5.0); GRAN # 7.65 (1.4-6.5); GRAN % 89.9 % (50.0-68.0); HEMATOCRIT 30.2 % (42.0-52.0); LYMPH # 0.5 (1.2-3.4); LYMPH % 5.3 % (22.0-35.0); MEAN CORPUSCULAR HEMOGLOBIN 27.1 pg (25.0-35.0); MEAN CORPUSCULAR HGB CONC 31.1 g/dl (31.0-37.0); MEAN PLATELET VOLUME 9.1 fl (7.0-11.0); MONO # 0.4 (0.1-0.6); MONO % 4.7 % (1.0-6.0); RED CELL DISTRIBUTION WIDTH 18.5 % (11.5-14.5); WHITE BLOOD COUNT 8.5 10^3/ul (4.5-11.0)
[2017-03-07 07:46] LABS: ALKALINE PHOSPHATASE 49 U/L (38-126); ALT/SGPT 36 U/L (7-56); AST/SGOT 22 U/L (17-59); BILIRUBIN,TOTAL 0.5 mg/dL (0.2-1.3); BLOOD UREA NITROGEN 12 mg/dL (7-21); CALCIUM 9.7 mg/dL (8.4-10.5); CARBON DIOXIDE 33 mmol/L (21-33); CHLORIDE 97 mmol/L (98-107); GFR AFRICAN-AMERICAN > 60; GLUCOSE,RANDOM 90 mg/dL (70-110); POTASSIUM 4.2 mmol/L (3.6-5.0); SODIUM 136 mmol/L (132-148); TOTAL PROTEIN 5.1 g/dL (5.8-8.3)
[2017-03-07 08:00] LABS: ALB/GLOB RATIO 1.2 (1.1-1.8)
[2017-03-07 08:46] VITALS: TEMP 98; O2SAT 93
[2017-03-07] MEDS: Albuterol-Ipratrop 3 mg / 0.5 (3 ml) UD IH SCH ×3 (08:50→14:42)
[2017-03-07] MEDS: Budesonide 0.25 mg/2 ml Inhal Susp UD IH SCH (08:51)
[2017-03-07] MEDS: levoFLOXacin 750 mg in D5W 750 MG/150 ML BAG IVPB SCH (09:55)
[2017-03-07] MEDS: MethylPREDNISolone 40 mg Vial IVP SCH (09:55)
[2017-03-07] MEDS: TraMADol/Apap 37.5/325 mg Tab PO PRN (09:56)
[2017-03-07] MEDS: Enoxaparin 40 mg Syringe SC SCH (09:57)
--- NOTE | 2017-03-07 10:49 | CP.PCM.PN ---
Subjective - Date & Time of Evaluation Date of Evaluation: 03/07/17 Time of Evaluation: 06:50 - Subjective Subjective: Patient seen and evaluated at bedside sleeping. Upon awakening patient states he slept overnight with some interruptions due to lights and noise but states he has no acute complaints. States he has been struggling with breathing for the past twelve years but admits to shortness of breath improving since admission as well as since yesterday. Denies chest pain, abdominal pain, nausea , vomiting, diarrhea, dysuria, fevers, chills. Objective - Vital Signs/Intake and Output Vital Signs (last 24 hours): Temp Pulse Resp BP Pulse Ox 98 F 76 20 112/71 93 L 03/07/17 08:45 03/07/17 08:45 03/07/17 08:45 03/07/17 08:45 03/07/17 08:45 Intake and Output: 03/07/17 03/07/17 06:59 18:59 Intake Total 1080 Output Total 1700 Balance -620 - Medications Medications: Current Medications Acetylcysteine (Acetylcysteine 20%) 4 ml IH [id number] [facility] Last Admin: 03/07/17 08:50 Dose: 4 ml Albuterol Sulfate (Albuterol 0.083% Inhal Rylee (2.5 Mg/3 Ml) Ud) 2.5 mg INH Q4 PRN PRN Reason: Wheezing Albuterol/Ipratropium (Duoneb 3 Mg/0.5 Mg (3 Ml) Ud) 3 ml IH [id number] [facility] Last Admin: 03/07/17 08:50 Dose: 3 ml Alprazolam (Xanax) 0.25 mg PO BID PRN; Protocol PRN Reason: Anxiety Stop: 03/10/17 17:41 Last Admin: 03/05/17 09:20 Dose: 0.25 mg Aspirin (Ecotrin) 81 mg PO DAILY [facility] Last Admin: 03/07/17 09:57 Dose: 81 mg Budesonide (Pulmicort Respules) 0.5 mg IH [id number] [facility] Last Admin: 03/07/17 08:51 Dose: 0.5 mg Diazepam (Valium) 5 mg PO HS [facility] PRN Reason: Protocol Last Admin: 03/06/17 22:37 Dose: 5 mg Enoxaparin Sodium (Lovenox) 40 mg SC DAILY [facility] PRN Reason: Protocol Last Admin: 03/07/17 09:57 Dose: 40 mg Escitalopram Oxalate (Lexapro) 5 mg PO DAILY [facility] Last Admin: 03/07/17 09:56 Dose: 5 mg Levofloxacin/Dextrose (Levaquin 750mg) 750 mg in 150 mls @ 100 mls/hr IVPB DAILY [facility] PRN Reason: Protocol Last Admin: 03/07/17 09:55 Dose: 100 mls/hr Meropenem (Merrem Iv 1 Gm Premix) 50 mls @ 100 mls/hr IVPB Q8 [facility] PRN Reason: Protocol Stop: 03/13/17 06:01 Last Admin: 03/07/17 05:38 Dose: 100 mls/hr Methylprednisolone (Solu-Medrol) 20 mg IVP Q12 [facility] Last Admin: 03/07/17 09:55 Dose: 20 mg Pantoprazole Sodium (Protonix Ec Tab) 40 mg PO 0600 [facility] Last Admin: 03/07/17 05:27 Dose: 40 mg Pregabalin (Lyrica) 100 mg PO TID [facility] Last Admin: 03/07/17 09:57 Dose: 100 mg Sodium Chloride ([place] Nasal [place]) 0 ml NS Q8 PRN PRN Reason: NASAL CONGESTION Last Admin: 03/04/17 18:59 Dose: 1 sprays Sucralfate (Carafate Oral Susp) 1 gm PO 0600,1600 [facility] Last Admin: 03/07/17 05:27 Dose: 1 gm Tamsulosin HCl (Flomax) 0.8 mg PO DAILY [facility] Last Admin: 03/07/17 09:56 Dose: 0.8 mg Tramadol/Acetaminophen (Ultracet 37.5/325 Mg) 1 tab PO Q12H PRN PRN Reason: Pain, moderate (4-7) Last Admin: 03/07/17 09:56 Dose: 1 tab Vitamin A (Vitamin A & D Oint Ud Foilpak) 1 ea TOP Q8H PRN PRN Reason: Dry nasal passages Last Admin: 03/03/17 21:38 Dose: 1 ea - Labs Labs: 03/07/17 06:30 03/07/17 06:30 PT 9.8 SECONDS (9.4-12.5) 03/03/17 15:05 INR 0.90 (0.93-1.08) L 03/03/17 15:05 APTT 29.6 Seconds (25.1-36.5) 03/03/17 15:05 - Head Exam Head Exam: ATRAUMATIC, NORMAL INSPECTION, NORMOCEPHALIC - Eye Exam Eye Exam: EOMI, Normal appearance - ENT Exam ENT Exam: Mucous Membranes Moist, Normal Exam - Respiratory Exam Respiratory Exam: Rhonchi, NORMAL BREATHING PATTERN. absent: Chest Wall Tenderness - Cardiovascular Exam Cardiovascular Exam: REGULAR RHYTHM, +S1, +S2 - GI/Abdominal Exam GI & Abdominal Exam: Soft, Normal Bowel Sounds - Neurological Exam Neurological Exam: Alert, Awake, Oriented x3 - Psychiatric Exam Psychiatric exam: Normal Affect, Normal Mood - Skin Skin Exam: Intact, Normal Color, Warm Assessment and Plan - Assessment and Plan (Free Text) Assessment: Patient is a 71 year old male with past medical history of End-Stage COPD, invasive esophageal CA who was recently admitted for COPD exacerbation presents with worsening shortness of breath, cough with fevers and aspiration of food earlier. Currently treating Sepsis likely secondary to aspiration pneumonia and hypercapnic respiratory failure. Plan: 1. Sepsis secondary to Aspiration pneumonia -Patient reports aspirating on tuna fish sandwich. -Chest x ray showed a cavitary lesion in the right lung apex. Previous exam cavity much thicker at 5.5 cm. -Chest CT with IV contrast ordered;New CT chest ordered reveals interval resolving of previously seen airspace consolidation at the peripheral right upper lobe since previous exam, interval decrease in thickness of cavitary lesions wall since previous exam: current study demonstrates thin wall cavitary lesion at right upper lobe. Spiculated border nodule/small mass at the right upper lobe adjacent to the cavitary lesions measures 1.4 x 2.1 cm. The possibility of neoplasm is not totally excluded. Mild to moderate emphysematou changes predominant in the upper lobes, moderate thickening of the distal esophageal wall may be due to gastroesophageal reflux or esophagitis. -Strep pneumoniae antigen, Urine legionella antigen ordered;negative --Infectious disease on board; continue with levaquin, vancomycin, meropenem -Swallow evaluation ordered; grossly abnormal distal esophagus-multiple nodlar intramural neoplastic filling defects. 2 areas of stenosis present above. Severe narrowing 4 mm wide, 2.7 cm length. No extravasatin of contrast, no gross tracheobronchial aspiration, proximal trace laryngela penetration suggested per pooling in the piriform sinuses. 2.Hypercapnic respiratory failure -BiPAP discontinued, transferred to telemetry -Continue with mucomyst, albuterol, albuterol/ipratropium -Solumedrol 20 mg q12h 3.Invasive esophageal cancer -Proton radiation completed in October -Hematology/Oncology on board; will follow up with recommendations 4.Anxiety/Depression -continue home medications. GI ppx/DVT ppx -Protonix/Lovenox
[2017-03-07 16:29] VITALS: BP 116/62; RESP 22
--- NOTE | 2017-03-07 17:37 | CP.PCM.PN ---
<Ceci Bhardwaj - Last Filed: 03/07/17 17:32> Subjective - Date & Time of Evaluation Date of Evaluation: 03/07/17 Time of Evaluation: 11:00 - Subjective Subjective: S&E at bedside earlier today, chart reviewed , had esophagus xray yesterday, report reviewed, have severe narrowing distal esophagus w/ stenosis and and filling defects, see [employer] for full report. No N/V or abdominal pain. No respiratory distress. Objective - Vital Signs/Intake and Output Vital Signs (last 24 hours): Temp Pulse Resp BP Pulse Ox 98 F 105 H 22 116/62 93 L 03/07/17 16:00 03/07/17 16:00 03/07/17 16:00 03/07/17 16:00 03/07/17 16:00 Intake and Output: 03/07/17 03/07/17 06:59 18:59 Intake Total 1080 Output Total 1700 Balance -620 - Medications Medications: Current Medications Acetylcysteine (Acetylcysteine 20%) 4 ml IH [id number] [facility] Last Admin: 03/07/17 14:41 Dose: 4 ml Albuterol Sulfate (Albuterol 0.083% Inhal Rylee (2.5 Mg/3 Ml) Ud) 2.5 mg INH Q4 PRN PRN Reason: Wheezing Albuterol/Ipratropium (Duoneb 3 Mg/0.5 Mg (3 Ml) Ud) 3 ml IH [id number] [facility] Last Admin: 03/07/17 14:42 Dose: 3 ml Alprazolam (Xanax) 0.25 mg PO BID PRN; Protocol PRN Reason: Anxiety Stop: 03/10/17 17:41 Last Admin: 03/05/17 09:20 Dose: 0.25 mg Aspirin (Ecotrin) 81 mg PO DAILY [facility] Last Admin: 03/07/17 09:57 Dose: 81 mg Budesonide (Pulmicort Respules) 0.5 mg IH [id number] [facility] Last Admin: 03/07/17 08:51 Dose: 0.5 mg Diazepam (Valium) 5 mg PO HS [facility] PRN Reason: Protocol Last Admin: 03/06/17 22:37 Dose: 5 mg Enoxaparin Sodium (Lovenox) 40 mg SC DAILY [facility] PRN Reason: Protocol Last Admin: 03/07/17 09:57 Dose: 40 mg Escitalopram Oxalate (Lexapro) 5 mg PO DAILY [facility] Last Admin: 03/07/17 09:56 Dose: 5 mg Levofloxacin (Levaquin) 500 mg PO DAILY [facility] PRN Reason: Protocol Stop: 03/15/17 10:01 Pantoprazole Sodium (Protonix Ec Tab) 40 mg PO 0600 [facility] Last Admin: 03/07/17 05:27 Dose: 40 mg Prednisone (Prednisone Tab) 20 mg PO DAILY [facility] Pregabalin (Lyrica) 100 mg PO TID [facility] Last Admin: 03/07/17 17:06 Dose: 100 mg Sodium Chloride (Kaufman Nasal [place]) 0 ml NS Q8 PRN PRN Reason: NASAL CONGESTION Last Admin: 03/04/17 18:59 Dose: 1 sprays Sucralfate (Carafate Oral Susp) 1 gm PO 0600,1600 [facility] Last Admin: 03/07/17 17:06 Dose: 1 gm Tamsulosin HCl (Flomax) 0.8 mg PO DAILY [facility] Last Admin: 03/07/17 09:56 Dose: 0.8 mg Tramadol/Acetaminophen (Ultracet 37.5/325 Mg) 1 tab PO Q12H PRN PRN Reason: Pain, moderate (4-7) Last Admin: 03/07/17 09:56 Dose: 1 tab Vitamin A (Vitamin A & D Oint Ud Foilpak) 1 ea TOP Q8H PRN PRN Reason: Dry nasal passages Last Admin: 03/03/17 21:38 Dose: 1 ea - Labs Labs: 03/07/17 06:30 03/07/17 06:30 PT 9.8 SECONDS (9.4-12.5) 03/03/17 15:05 INR 0.90 (0.93-1.08) L 03/03/17 15:05 APTT 29.6 Seconds (25.1-36.5) 03/03/17 15:05 - Constitutional Appears: No Acute Distress - Eye Exam Eye Exam: Normal appearance. absent: Scleral icterus - ENT Exam ENT Exam: Mucous Membranes Moist - Neck Exam Neck Exam: Normal Inspection - Respiratory Exam Respiratory Exam: Rhonchi, NORMAL BREATHING PATTERN. absent: Respiratory Distress - Cardiovascular Exam Cardiovascular Exam: +S1, +S2 - GI/Abdominal Exam GI & Abdominal Exam: Soft, Normal Bowel Sounds. absent: Guarding, Tenderness, Rebound - Extremities Exam Extremities Exam: absent: Calf Tenderness, Pedal Edema - Neurological Exam Neurological Exam: Alert, Awake, Oriented x3 Assessment and Plan - Assessment and Plan (Free Text) Assessment: Assessment: Dysphagia,s/p esophagogram, severe narrowing/stenosis/filling defects History of esophageal cancer End-stage COPD/emphysema History of basal cell carcinoma and melanoma Right lung cavitary lesion Anemia Plan: advance diet to ONLY PUREE, discuss w/ patient/nursing staff, NO SOLID FOODS Continue GI prophylaxis, on Protonix DVT prophylaxis, on lovenox on Aspirin On Solumedrol IV antibiotics No endoscopic plans for this patient is high risk for anesthesia with comorbidities, this was discussed with medical team and patient who is well aware. Seen and discussed with Dr. Gardner. <Maribell Gardner V - Last Filed: 03/07/17 23:03> Objective - Vital Signs/Intake and Output Vital Signs (last 24 hours): Temp Pulse Resp BP Pulse Ox 98 F 110 H 22 116/62 93 L 03/07/17 16:00 03/07/17 18:00 03/07/17 16:00 03/07/17 16:00 03/07/17 16:00 - Labs Labs: 03/07/17 06:30 03/07/17 06:30 PT 9.8 SECONDS (9.4-12.5) 03/03/17 15:05 INR 0.90 (0.93-1.08) L 03/03/17 15:05 APTT 29.6 Seconds (25.1-36.5) 03/03/17 15:05 Attending/Attestation - Attestation I have personally seen and examined this patient.: Yes I have fully participated in the care of the patient.: Yes I have reviewed all pertinent clinical information, including history, physical exam and plan: Yes Notes (Text): This is an addendum to GI progress report dictated by Ceci Bhardwaj APN.The patient was seen and examined earlier. Medical records, lab studies, imagings were reviewed. Last 24 hours events reviewed. Agreed with the above treatment plan as outlined in Ceci Bhardwaj APN's notes the with the addition of the following long-term pured diet with supplements discussed with the patient at length 03/07/17 23:01
[2017-03-07 19:16] VITALS: PULSE 110
--- NOTE | 2017-03-07 19:53 | CON ---
DATE: 03/04/2017 PULMONARY CONSULT REFERRING PHYSICIAN: Dr. Gómez. REASON FOR CONSULT: He is admitted with exacerbation of chronic lung disease, cough, shortness of breath. HISTORY OF PRESENT ILLNESS: This is a 71-year-old gentleman, well known to me from the office on previous admission, just seen by me 4 days ago. Apparently, had acute exacerbation of COPD, pulse has dropped down to 70, could not breath, brought into emergency room, received IV and inhaled bronchodilator with some success and admitted for further workup. Presently, sitting up in the chair, still short of breath, some cough, had low-grade fever on admission. No nausea, no vomiting. No diarrhea, leg pain, or leg swelling. PAST MEDICAL HISTORY: Chronic obstructive lung disease, has esophageal cancer, history of radiation therapy, basal cell carcinoma, history of melanoma, resolving right lung abscess that was from aspiration, received more than 6 weeks of antibiotics. No hemoptysis, no hematemesis, no hematuria, no diarrhea reported. PAST MEDICAL HISTORY: As per history of present illness. ALLERGIES: NONE KNOWN. SOCIAL HISTORY: Former smoker, stopped about 15 years ago. Denied any alcohol use. MEDICATIONS: He is on Mucomyst 20% inhaled q. 6 hours, albuterol/Atrovent nebulizer q. 4 hours. p.r.n., DuoNeb q. 6 hours round the clock, Flomax 0.8 mg daily, Levaquin 750 mg daily, Lexapro 5 mg daily, Lovenox 40 mg daily, Lyrica 100 mg 3 times a day, meropenem 1 g IV q. 8 hours, nasal saline q. 6 hours, Protonix 40 mg daily, Pulmicort inhale twice a day, Solu-Medrol 40 mg q. 12 hours, tramadol/acetaminophen 37.5/325 1 tab q. 12 hours, Ultracet 37.5/325 one tab q. 12 hours, valium 5 mg daily, vancomycin 1 g IV q. 12 hours, Vitamin A and Vitamin D at affected areas, Xanax 0.25 mg twice a day p.r.n. REVIEW OF SYSTEMS: No headache. No rhinitis. Has a cough, short of breath. No hemoptysis, no hematemesis, no hematuria, no diarrhea. No significant leg swelling. PHYSICAL EXAMINATION GENERAL: Sitting on the chair. is at bedside. [id number] distress secondary to cough and shortness of breath. VITAL SIGNS: Temperature is 98, heart rate is 89, respiratory rate is 26, blood pressure 107/62, pulse ox 96% on nasal cannula. HEENT: Moist mucus membrane. Crowded airway. NECK: Supple. No JVD. LUNGS: Has a scattered rhonchi and wheezing. HEART: S1 and S2. ABDOMEN: Soft and nontender. No organomegaly. EXTREMITIES: No edema. NEUROLOGIC: Awake and alert, follows simple command. LABORATORY DATA: Shows hemoglobin 9.8, hematocrit 31.4, WBC 13.2, platelet is 216,000. INR 0.90. He has an ABG done on admission that shows pH 7.42, pCO2 of 45, O2 123, this was on nasal cannula. Sodium 139, potassium 4.7, chloride 104, bicarbonate 30, BUN 15, creatinine 0.5, glucose is 154, calcium 1.3, AST 22, ALT 35, alk phos is 53. Albumin is 3.1. Microbiology, blood culture has been negative. Chest x-ray done today shows thin walled cavity lesion in right upper apex area. IMPRESSION AND PLAN: Chronic obstructive lung disease, which is a severe disease, status post right lung abscess, treated with 4 to 6 weeks of antibiotics, has esophageal cancer, status post radiation therapy, recurrent aspiration, anxiety disorder, depression, history of basal cell carcinoma. Case discussed with the patient's at bedside. All the questions answered. The patient is seen by Infectious Disease. We will suggest getting CT of the chest to evaluate right upper lobe area, also need Dr. Gardner to do endoscopy to assure that there is no esophageal obstruction which causes the recurrent aspiration for this gentleman. Gastric prophylaxis. Systemic compression device/SCD to lower extremities. Sleep apnea precautions. Keep head at 45 degrees. May continue to try using BiPAP, the patient is claustrophobic, in the past refused it. Thank you and we will follow with you. Jesika Srivastava MD
--- NOTE | 2017-03-07 22:32 | PN ---
PULMONARY PROGRESS NOTE DATE: 03/07/2017 REFERRING PHYSICIAN: Jesika Gómez MD SUBJECTIVE: He is sitting in the chair. Night was unremarkable, feels better, decreased cough, decreased short of breath. No nausea, no vomiting, no diarrhea. No leg pain or leg swelling. OBJECTIVE: GENERAL: In no acute distress. VITAL SIGNS: Temperature is 98, heart rate is 76, respiratory rate is 20, blood pressure is 112/71 and pulse oximetry 93% on 2 L nasal cannula. HEENT: Moist mucous membranes. Crowded airway. NECK: Supple. No JVD. LUNGS: Has a fair airflow with rhonchi. HEART: S1 and S2. ABDOMEN: Soft and nontender. No organomegaly. EXTREMITIES: There is no edema. NEUROLOGIC: Awake, alert and follows simple command. MEDICATIONS: He is on Mucomyst 20% inhaled q. 6 hours, albuterol/Atrovent nebulizer q. 4 hours p.r.n., Carafate 1 g twice a day, DuoNeb q. 6 hours around the clock, Ecotrin 81 mg daily, Flomax 0.8 mg daily, Levaquin 500 mg daily, Lexapro 5 mg daily, Lovenox 40 mg daily, Lyrica 100 mg 3 times a day, nasal saline q. 8 hours p.r.n., prednisone 40 mg daily, Pulmicort inhaled twice a day, Ultracet one tablet q. 12 hours, valium 5 mg at bedtime, vitamin A and D at affected area q. 8 hours, and Xanax 0.25 mg p.r.n. LABORATORY DATA: Shows hemoglobin 9.4, hematocrit 30.2, WBC 8.5, and platelet count is 213. Sodium 136, potassium 4.2, chloride 97, bicarbonate 33, BUN 12, creatinine 0.5, glucose 90 and calcium is 9.7. AST 22, ALT 36, alk phos is 49 and albumin is 2.7. Microbiology; blood culture and urine culture, there is no growth. IMPRESSION AND PLAN: Chronic obstructive lung disease, history of cavitary lesion in the right upper lobe, also nodule adjacent to the cavitary lesion, esophageal cancer with stricture, history of Pseudomonas pneumonia, recurrent aspiration. Case discussed with Dr. Ferreira in detail who spoke to Gastroenterology. I spoke to the patient in detail. I also spoke to the patient's daughter. The patient need to go liquid diet. High risk for obstruction and aspiration and somewhere along the lines, will need further workup, understanding severe obstructive lung disease, seems likely obstructing more, need to revisit if he will benefit from endoscopy with esophageal dilatation and/or stent. Thank you and we will follow with you. Jesika Srivastava MD
--- NOTE | 2017-03-08 08:38 | PN ---
DATE: 03/07/2017 This is [facility] visit on the medical floor. For Dr. Ferreira. SUBJECTIVE: The patient is a 71-year-old male seen sitting up in a chair with nebulizer treatment on, status post testing as per Dr. Gardner and Dr. Srivastava recently with the patient now being advised to follow only strict pureed diet due to findings on his esophagogram, which showed severe narrowing at the distal esophagus. With this, the patient is, otherwise, in no acute distress. The patient will continue his antibiotics as per Dr. Horta for aspiration pneumonia. PHYSICAL EXAMINATION: VITAL SIGNS: Temperature 98, pulse 76, respirations 20, blood pressure 112/71, and pulse ox 93%. HEENT: Unremarkable. Oxygen is on. NECK: Supple. HEART: Regular rate. LUNGS: Decreased breath sounds, occasional rhonchi. ABDOMEN: Scaphoid, soft, nontender. EXTREMITIES: No edema. SKIN: Warm and dry. NEUROLOGIC: Awake, alert and oriented x3. LABORATORY DATA: The patient's labs were done. White blood cell count of 8.5, hemoglobin of 9.4, hematocrit of 30.2, and platelet count of 213,000, with chem metabolic panel within normal range. The patient did have an esophagus x-ray done yesterday, it was read as grossly abnormal distal esophagus, multiple nodular intramural neoplastic filling defects, two areas of stenosis present, severe narrowing, 4 mm wide, 2.7 cm in length, status post radiation for esophageal malignancy. 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 PLAN: Plan for this patient after conversation with Dr. Ferreira and Dr. Gardner is to continue strict pureed diet for now with antibiotics to continue as per Dr. Horta and Dr. Srivastava with pulmonary medications to continue. The patient will continue his GI prophylaxis including Carafate and Protonix as he is on prednisone on a daily basis. With this, the patient's labs will be monitored and we will follow as an outpatient once he is released. This is a complex patient with a comprehensive and thorough medical exam carried out with the patient's question answers to his satisfaction with [id number] time in approximately 25 minutes. Abhijeet Vigil MD
--- NOTE | 2017-03-08 08:58 | PN ---
DATE: 03/07/2017 SUBJECTIVE: The patient is in bed in no acute distress, nontoxic. PHYSICAL EXAMINATION: VITAL SIGNS: Temperature is 98, blood pressure is 112/70, respiratory rate of 20, heart rate of 88. HEENT: Unremarkable. NECK: Supple. LUNGS: Have decreased breath sounds. HEART: Normal S1, S2. ABDOMEN: Soft, nontender. LABORATORY DATA: Laboratory examination reveals a white count of 8.5, hemoglobin of 9, platelets of 213. Chemistries reveals a BUN of 12, creatinine of 0.5. Serology is noted and microbiology reveals the blood cultures are negative. ASSESSMENT AND PLAN: He is a 71-year-old male who was seen earlier today in [facility], bed 1, with end-stage chronic obstructive lung disease, emphysema on home O2 therapy, heavy smoker, basal cell cancer, coronary artery disease, esophageal cancer, who had Pseudomonas lung cavity, pyogenic abscess. Admitted, at this admission with severe sepsis with healthcare-associated pneumonia and with urine Legionella negative. Blood cultures negative. Procalcitonin is negative. EKG shows a QTc of 402. We will discontinue the IV Levaquin and the IV meropenem. Complete the patient's treatment with p.o. Levaquin. Case discussed with all involved. Kwame Horta MD
[2017-03-08] MEDS ORDERED: levoFLOXacin 500 MG TAB PO SCH (10:00)
== END 2017-03-07 19:40 | disposition home or self-care (01) | DRG 871 ==
LOC: ED 14:47 → ERH 16:09 → ICU 17:26 → 3RNO 03-04 13:29
PROVIDERS: ADMIT Internal Medicine; ATTEND Internal Medicine
PROC: 5A09457 Assistance with Respiratory Ventilation, 24-96 Consecutive Hours, Continuous Positive Airway Pressure (ICD-10-PCS; principal; 2017-03-03)
PROC: 3E0F7GC Introduction of Other Therapeutic Substance into Respiratory Tract, Via Natural or Artificial Opening (ICD-10-PCS; 2017-03-03)
DX: A41.9 Sepsis, unspecified organism (principal); J69.0 Pneumonitis due to inhalation of food and vomit; J96.92 Respiratory failure, unspecified with hypercapnia; R64 Cachexia; J44.1 Chronic obstructive pulmonary disease with (acute) exacerbation; Z99.81 Dependence on supplemental oxygen; C15.5 Malignant neoplasm of lower third of esophagus; K22.2 Esophageal obstruction; D64.9 Anemia, unspecified; K21.9 Gastro-esophageal reflux disease without esophagitis; R65.20 Severe sepsis without septic shock; J98.01 Acute bronchospasm; I25.10 Atherosclerotic heart disease of native coronary artery without angina pectoris; F40.240 Claustrophobia; F32.9 Major depressive disorder, single episode, unspecified; G25.81 Restless legs syndrome; Z85.820 Personal history of malignant melanoma of skin; Z92.21 Personal history of antineoplastic chemotherapy; Z87.01 Personal history of pneumonia (recurrent); Z92.3 Personal history of irradiation; Z87.891 Personal history of nicotine dependence; Z90.49 Acquired absence of other specified parts of digestive tract

== ENCOUNTER 2017-03-22 15:49 | Inpatient (IN) | payer OTHER, MEDICARE ==
[2017-03-22] MEDS ORDERED: Levalbuterol 1.25 MG/3 ML Inhal Soln UD IH STA ×3 (16:12→16:13)
--- NOTE | 2017-03-22 16:17 | ED PDOC ---
Arrival/HPI - General Time Seen by Provider: 03/22/17 16:03 - History of Present Illness Narrative History of Present Illness (Text): 71 y/o M c PMHx COPD on home O2, esophageal cancer s/p radiation p/w shortness of breath x 1 day. Patient with shortness of breath today, similar to previous COPD exacerbations but more severe. Reports chest tightness, which is also typical of COPD exacerbations. Visiting nurse at home obtained temperature of 102 temporal. Patient denies leg swelling, abd pain, vomiting, diarrhea, rash. PMD Mutterperl Onc: Hanna Pulm: Carola Past Medical History - Infectious Disease Hx of Infectious Diseases: None - Tetanus Immunization Tetanus Immunization: Unknown - Cardiac Hx Cardiac Disorders: No Hx Pacemaker: No - Pulmonary Hx Respiratory Disorders: Yes Hx Chronic Obstructive Pulmonary Disease (COPD): Yes Hx Emphysema: Yes Hx Pneumonia: Yes - Neurological Hx Neurological Disorder: No - HEENT Hx HEENT Disorder: Yes (reading glasses) Hx Cataracts: Yes (b/l cat sx) Other/Comment: voice hoarse - Renal Hx Renal Disorder: No - Endocrine/Metabolic Hx Endocrine Disorders: No - Hematological/Oncological Hx Cancer: Yes (esophogeal CA) - Integumentary Hx Dermatological Disorder: Yes Hx Basal Cell Carcinoma: Yes (removed from back) Hx Melanoma: Yes (removed from back) Other/Comment: pt had shingles in 10/2015 r buttock around to r groin rash faded , "some" residual pain on lyrica (previous triage) - Musculoskeletal/Rheumatological Hx Arthritis: Yes ("all over") - Gastrointestinal Hx Gastrointestinal Disorders: Yes - Genitourinary/Gynecological Hx Genitourinary Disorders: No - Psychiatric Hx Anxiety: Yes Hx Substance Use: No - Surgical History Hx Mastectomy: No - Anesthesia Hx Anesthesia: Yes Hx Anesthesia Reactions: No Hx Malignant Hyperthermia: No - Suicidal Assessment Feels Threatened In Home Enviroment: No Family/Social History Family/Social History: No Known Family HX Smoking Status: Former Smoker Hx Alcohol Use: No Hx Substance Use: No Hx Substance Use Treatment: No Allergies/Home Meds Allergies/Adverse Reactions: Allergies No Known Allergies Allergy (Verified 03/03/17 15:11) Home Medications: Home Meds Medication Instructions Recorded Confirmed ALPRAZolam [Xanax] 0.25 mg PO BID PRN 12/25/16 03/03/17 Albuterol Sulfate 2.5 mg IH Q6H PRN 12/25/16 03/03/17 Benzonatate 200 mg PO TID 12/25/16 03/03/17 Budesonide [Pulmicort Respules] 0.5 mg IH BID 12/25/16 03/03/17 Fluticasone/Salmeterol 500/50 1 puff IH BID 12/25/16 03/03/17 [Advair Diskus 500/50] Guaifenesin [Mucinex] 800 mg PO BID 12/25/16 03/03/17 Levalbuterol Tartrate [Xopenex Hfa] 2 puff IH Q6H PRN 12/25/16 03/03/17 Levocetirizine Dihydrochloride 5 mg PO DAILY 12/25/16 03/03/17 [Xyzal] Multivit,Iron,Min 5/Folic Acid 1 tab PO DAILY 12/25/16 03/03/17 [Strovite Forte Caplet] Pantoprazole Sodium [Protonix] 40 mg PO DAILY 12/25/16 03/03/17 Pregabalin [Lyrica] 100 mg PO TID 12/25/16 03/03/17 Quinine Sulfate [Qualaquin] 324 mg PO DAILY 12/25/16 03/03/17 Sucralfate [Carafate Oral Susp] 1 gm PO BID 12/25/16 03/03/17 Tiotropium [Spiriva] 18 mcg IH DAILY 12/25/16 03/03/17 Tramadol HCl/Acetaminophen 1 tab PO BID 12/25/16 03/03/17 [Tramadol-Acetaminophn 37.5-325] diaZEpam [Valium] 5 mg PO DAILY 12/25/16 03/03/17 Review of Systems - Physician Review All systems were reviewed & negative as marked: Yes - Review of Systems Constitutional: Fevers Cardiovascular: absent: Chest Pain Gastrointestinal: absent: Vomiting Physical Exam - Physical Exam Narrative Physical Exam (Text): Constitutional: Elderly, thin male, appears short of breath. Head: Normocephalic. Atraumatic. Eyes: PERRL. ENT: Moist mucous membranes. Neck: Supple. Cardiovascular: Tachycardia Chest: No tenderness. Respiratory: Inspiratory squeak. Decreased breath sounds diffusely. GI: Soft. Nontender. Nondistended. Back: No midline tenderness. Musculoskeletal: No tenderness or swelling of extremities. Skin: No rash. Neurologic: Alert, no focal deficit. Vital Signs Temp Pulse Resp BP Pulse Ox 03/22/17 17:54 130 H 20 105/59 L 95 03/22/17 16:45 150 H 18 101/65 91 L 03/22/17 15:56 98.9 F 152 H 20 102/57 L 92 L Medical Decision Making ED Course and Treatment: EKG Sinus rhythm 137 bpm, no ST elevations. Started on Xopenex, solumedrol, and BiPap. XR shows persistent cavitary lesion, no new consolidation or infiltrate. Improved air movement on re-auscultation. Patient/daughter refused ABG, also stated that patient is not to be intubated. Dr. Riley accepts patient to Dr. Ferreira's service. They spoke with Dr. Srivastava, who states he will order nebulizers, steroids, and antibiotics. - Lab Interpretations Lab Results: 03/22/17 16:05 03/22/17 16:05 Lab Results 03/22/17 16:05: Sodium 139, Potassium 4.1, Chloride 97 L, Carbon Dioxide 31, Anion Gap 14, BUN 17, Creatinine 0.6 L, Est GFR ( Amer) > 60, Est GFR ( Non-Af Amer) > 60, Random Glucose 82, Calcium 10.4, Total Bilirubin 1.1, AST 30 , ALT 36, Alkaline Phosphatase 73, Total Creatine Kinase < 20 L, Troponin I < 0.01, NT-Pro-B Natriuret Pep 119, Total Protein 6.9, Albumin 3.8, Globulin 3.1, Albumin/Globulin Ratio 1.2 03/22/17 16:05: PT 10.3, INR 0.91 L, APTT 31.6 03/22/17 16:05: WBC 18.0 H D, RBC 4.16, Hgb 11.6 L D, Hct 36.1 L, MCV 86.8, MCH 27.9, MCHC 32.1, RDW 17.3 H, Plt Count 351, MPV 9.1, Gran % 93.5 H, Lymph % ( Auto) 3.8 L, Mitchell % (Auto) 2.2, Eos % (Auto) 0.3 L, Baso % (Auto) 0.2, Gran # 16.79 H, Lymph # 0.7 L, Mitchell # 0.4, Eos # 0.1, Baso # 0.04, Neutrophils % ( Manual) Pending, Lymphocytes % (Manual) Pending, Monocytes % (Manual) Pending - RAD Interpretation Radiology Orders: 03/22/17 16:12 CHEST PORTABLE [RAD] Stat - Medication Orders Current Medication Orders: Discontinued Medications Levalbuterol HCl (Xopenex) 1.25 mg IH STAT STA Stop: 03/22/17 16:13 Last Admin: 03/22/17 16:26 Dose: 1.25 mg Levalbuterol HCl (Xopenex) 1.25 mg IH STAT STA Stop: 03/22/17 16:14 Last Admin: 03/22/17 16:26 Dose: 1.25 mg Levalbuterol HCl (Xopenex) 1.25 mg IH STAT STA Stop: 03/22/17 16:14 Last Admin: 03/22/17 16:26 Dose: 1.25 mg Methylprednisolone (Solu-Medrol) 125 mg IVP STAT STA Stop: 03/22/17 16:13 Last Admin: 03/22/17 16:26 Dose: 125 mg IVP Administration Document 03/22/17 16:26 KS (Rec: 03/22/17 16:26 KS [id number]) Charges for Administration # of IVP Administrations 1 Disposition/Present on Arrival - Present on Arrival Any Indicators Present on Arrival: No History of DVT/PE: No History of Uncontrolled Diabetes: No Urinary Catheter: No History Surgical Site Infection Following: None - Disposition Have Diagnosis and Disposition been Completed?: Yes Diagnosis: COPD exacerbation Disposition: HOSPITALIZED Disposition Time: 18:24 Patient Plan: Admission Condition: GUARDED
[2017-03-22 16:19] VITALS: BMI 18.8
[2017-03-22 16:30] LABS: BASO # 0.04 K/mm3 (0.0-2.0); BASO % 0.2 % (0.0-3.0); EOS # 0.1 (0.0-0.7); EOS % 0.3 % (1.5-5.0); GRAN # 16.79 (1.4-6.5); GRAN % 93.5 % (50.0-68.0); HEMOGLOBIN 11.6 g/dL (14.0-18.0); LYMPH # 0.7 (1.2-3.4); LYMPH % 3.8 % (22.0-35.0); MEAN CELL VOLUME 86.8 fl (80.0-105.0); MEAN CORPUSCULAR HEMOGLOBIN 27.9 pg (25.0-35.0); MEAN CORPUSCULAR HGB CONC 32.1 g/dl (31.0-37.0); MEAN PLATELET VOLUME 9.1 fl (7.0-11.0); MONO # 0.4 (0.1-0.6); MONO % 2.2 % (1.0-6.0); PLATELET COUNT 351 10^3/uL (120.0-450.0); RBC 4.16 10^6/uL (3.5-6.1); RED CELL DISTRIBUTION WIDTH 17.3 % (11.5-14.5)
[2017-03-22 16:39] LABS: PROTHROMBIN TIME 10.3 SECONDS (9.4-12.5)
[2017-03-22 16:40] LABS: INR 0.91 (0.93-1.08); PARTIAL THROMBOPLASTIN TIME 31.6 Seconds (25.1-36.5)
[2017-03-22 16:41] LABS: ALB/GLOB RATIO 1.2 (1.1-1.8); ALBUMIN 3.8 g/dL (3.0-4.8); ALT/SGPT 36 U/L (7-56); AST/SGOT 30 U/L (17-59); BLOOD UREA NITROGEN 17 mg/dL (7-21); CALCIUM 10.4 mg/dL (8.4-10.5); GFR AFRICAN-AMERICAN > 60; GFR NON-AFRICAN AMERICAN > 60
[2017-03-22 16:51] LABS: B-TYPE NATRIURETIC PEPTIDE 119 pg/mL (0-450); TROPONIN I < 0.01 ng/mL
--- NOTE | 2017-03-22 17:31 | RAD ---
HISTORY: Dyspnea. Portable study 16:41 COMPARISON: Single-view chest 03/04/2017. CT thorax 03/05/2017 FINDINGS: LUNGS: Thin-walled cavity right upper lobe modest interval improvement with respect to complexity in wall thickening seen previously PLEURA: No significant pleural effusion identified, no pneumothorax apparent. CARDIOVASCULAR: No radiographic findings to suggest acute or significant cardiovascular disease. OSSEOUS STRUCTURES: No significant abnormalities. VISUALIZED UPPER ABDOMEN: Normal. OTHER FINDINGS: None. IMPRESSION: Persistent cavitary mass right upper lobe.
[2017-03-22 18:06] LABS: URINE BILIRUBIN SMALL (NEGATIVE); URINE BLOOD NEGATIVE (NEGATIVE); URINE GLUCOSE (UA) NEGATIVE (NEGATIVE); URINE LEUKOCYTE ESTERASE TRACE Leu/uL (NEGATIVE); URINE NITRATE NEGATIVE (NEGATIVE); URINE PROTEIN TRACE mg/dL (<30 mg/dL); URINE UROBILINOGEN 0.2 E.U./dL (<1 E.U./dL)
[2017-03-22 18:39] LABS: URINE APPEARANCE SL CLOUDY (CLEAR); URINE COLOR YELLOW (YELLOW)
[2017-03-22] MEDS ORDERED: SUCRALFATE 1 GM PO SCH (18:45)
[2017-03-22 18:51] LABS: URINE RBC 0 - 2 /hpf (0-2)
[2017-03-22 18:52] LABS: URINE BACTERIA FEW (NEG)
[2017-03-22] MEDS: Acetylcysteine 20% Inhal Soln (4ml) IH SCH (20:02)
[2017-03-22] MEDS: Sucralfate 1 gm/10 ml Oral Susp UD PO SCH (20:02)
[2017-03-22] MEDS ORDERED: Cefepime (Maxipime) 1 g Inj IVPB SCH (22:00)
[2017-03-22] MEDS: Nystatin 100,000 Units/ml Oral Susp 5 ml UD PO SCH (22:12)
[2017-03-22] MEDS ORDERED: Influenza Vaccine 60 mcg/0.5 mL SYR (4YR UP) IM ONE (22:17)
[2017-03-22] MEDS ORDERED: Pneumococcal 23-Valent Vaccine IM ONE (22:17)
[2017-03-22] MEDS: Cefepime IV 2 gm in NS 2 GM/100 ML BAG IVPB SCH (22:40)
[2017-03-22 23:44] LABS: BAND 8 % (0-2); EOSINOPHIL 1 % (0.0-3.0); LYMPHOCYTE 4 % (22.0-35.0); MONOCYTE 3 % (1.0-6.0); NEUTROPHIL 84 % (50.0-70.0)
[2017-03-22 23:45] LABS: PLATELET ESTIMATE NORMAL (NORMAL)
[2017-03-22 23:46] LABS: ANISOCYTOSIS 1+
[2017-03-23] MEDS: QUININE SULFATE 324 MG PO SCH ×2 (01:21→21:36)
[2017-03-23] MEDS: MethylPREDNISolone 40 mg Vial IVP SCH ×5 (01:24→21:35)
--- NOTE | 2017-03-23 05:57 | HP ---
This is Anurag Simms's admission history and physical to medical floor. For Dr. Ferreira. CHIEF COMPLAINT: Shortness of breath. 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 The patient now here for evaluation after visiting nurses evaluated him early at home with increasing heart rate and decreased pulse oximetry and increasing respiratory rate. He is now resting more comfortably on BiPAP with his at the bedside. He appears to be in no acute distress. He is here for the admission by the Emergency Room. ALLERGIES: NO KNOWN ALLERGIES. MEDICATIONS: His medications from home include prednisone, quinine sulfate, Spiriva, Strovite, Carafate, Flomax, acetylcysteine nebulizer, aspirin, Daliresp, DuoNeb, Xanax, Lexapro, fluticasone, Lyrica, and Nystatin which was discontinued recently. Mucinex, Tessalon Perles and home oxygen. 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 He is status post biopsy in 08/2016 with this diagnosis. FAMILY HISTORY AND SOCIAL HISTORY: Heavy smoker, quit 10 years greater than a pack a day for 40 years, and denied EtOH use. Otherwise noncontributory. REVIEW OF SYSTEMS: A 12-point review of system was done, which was negative to questioning except as per items mentioned in history of present illness above. It should be noted that the patient had an esophagogram done 03/06/2017, it was read as grossly abnormal distal esophagus multiple nodular intramural neoplastic filling defect, two areas of stenosis were present with severe narrowing, 4-mm wide and 2.7-cm in length. The patient is status post radiation for esophageal malignancy. No extravasation of contrast. No gross tracheobronchial aspiration proximal trace laryngeal penetration. The patient had a chest x-ray done today, it showed persistent cavitary mass right upper lobe. OBJECTIVE/PHYSICAL EXAMINATION: VITAL SIGNS: Temperature is 98.9 with his heart rate of 150 down to 130, blood pressure of 105/59, respiratory rate is 20 and pulse oximetry of 95% on BiPAP. HEENT: [place]. NECK: Supple. HEART: Tachy rate regular rhythm. LUNGS: Scattered rhonchi. Decreased breath sounds. ABDOMEN: Scaphoid, soft and nontender. EXTREMITIES: No edema. SKIN: Warm and dry. NEUROLOGIC: Awake and alert, but appears cachectic. He has BiPAP on. LABORATORY DATA: Done, white blood cell count of 18,000 on steroids, hemoglobin of 11.6, hematocrit of 36.1 and platelet count of 351,000 with a chem metabolic panel within normal limits with CK of less than 20. His INR is 0.9. IMAGING DATA: His chest x-ray was read as above. ASSESSMENT: Exacerbation of chronic obstructive pulmonary disease with known cavitary lung lesion with pseudomonas abscess in the past. 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 PLAN: After conversation with Dr. Ferreira is to ask for consult with Dr. Srivastava who was notified and we will address the patient's respiratory needs including IV steroids, nebulizer treatment and antibiotics as needed. As per consult with Dr. Gardner for his narrowing of his esophagus with dietary restrictions with nutrition to continue as indicated. We will also continue his present medical regimen with Lovenox given for DVT prophylaxis. Prognosis for this patient is guarded. We will monitor clinically and with labs, and one is referred to patient previous dictations. The patient is a complex patient with comprehensive medically necessary and appropriate visit carried in excess of 50 minutes face to face time, with consultants also notified and spoken to by telephone with their recommendations to be implemented with the at the bedside, with her questions answered to her satisfaction. Prognosis for this patient is guarded. Abhijeet Vigil MD
[2017-03-23 07:52] LABS: ALB/GLOB RATIO 1.1 (1.1-1.8); ALBUMIN 3.1 g/dL (3.0-4.8); ALT/SGPT 39 U/L (7-56); AST/SGOT 25 U/L (17-59); BLOOD UREA NITROGEN 18 mg/dL (7-21); CALCIUM 9.7 mg/dL (8.4-10.5); GFR AFRICAN-AMERICAN > 60; GFR NON-AFRICAN AMERICAN > 60
[2017-03-23 08:06] LABS: GRAN # 19.65 (1.4-6.5); GRAN % 97.5 % (50.0-68.0); HEMOGLOBIN 9.5 g/dL (14.0-18.0); LYMPH # 0.3 (1.2-3.4); LYMPH % 1.6 % (22.0-35.0); MEAN CELL VOLUME 86.3 fl (80.0-105.0); MEAN CORPUSCULAR HEMOGLOBIN 27.1 pg (25.0-35.0); MEAN CORPUSCULAR HGB CONC 31.5 g/dl (31.0-37.0); MEAN PLATELET VOLUME 9.2 fl (7.0-11.0); MONO # 0.2 (0.1-0.6); MONO % 0.9 % (1.0-6.0); RBC 3.5 10^6/uL (3.5-6.1); RED CELL DISTRIBUTION WIDTH 17.2 % (11.5-14.5); WHITE BLOOD COUNT 20.2 10^3/ul (4.5-11.0)
[2017-03-23] MEDS ORDERED: QUININE SULFATE 324 MG PO SCH (10:00)
[2017-03-23] MEDS ORDERED: TraMADol/Apap 37.5/325 mg Tab PO SCH (10:00)
[2017-03-23] MEDS ORDERED: Levalbuterol 0.63 MG/3 ML Inhal Soln UD IH SCH (11:00)
[2017-03-23] MEDS: Nystatin 100,000 Units/ml Oral Susp 5 ml UD PO SCH ×4 (11:05→21:35)
[2017-03-23] MEDS: Sucralfate 1 gm/10 ml Oral Susp UD PO SCH ×2 (11:05→18:32)
[2017-03-23] MEDS: Enoxaparin 40 mg Syringe SC SCH (11:06)
[2017-03-23] MEDS: Tiotropium 18 mcg Cap For Inhalation IH SCH (11:06)
[2017-03-23] MEDS: Pantoprazole 40 mg EC Tab PO SCH (11:06)
[2017-03-23] MEDS: Cefepime IV 2 gm in NS 2 GM/100 ML BAG IVPB SCH (11:07)
[2017-03-23] MEDS: guaiFENesin 600 mg ER Tab PO SCH ×2 (11:07→18:32)
--- NOTE | 2017-03-23 11:52 | CARD ---
APPROVED REPORT EKG Measurement Heart [id number] <Conclusion> Sinus tachycardia Anterior infarct, age undetermined Abnormal ECG
--- NOTE | 2017-03-23 13:41 | CP.PCM.CON ---
History of Present Illness - History of Present Illness History of Present Illness: 71 year old male with PMH of end-stage COPD with history of heavy smoking, espohageal CAD, basal cell CA, S/P appendectomy, history of evere sepsis with respiratory failure from lung cavitary lesion in the right upper lobe - lung pyogenic abscess with Pseudomonas (s/P treatment with 6 weeks of antibiotics from to 2016) was [place] in [place] [facility] of shaking chills associated with cough and SOB for the past 1-2 days. The patient states he has been having cough for the past week but the chills only happened a day prior to admission. He initially did not have fever but was found to have one episode of 102 F prior to admission but no fevers have been noted since admission. He denies hemoptysis, no headache or dizziness, no rhinorrhea, no sore throat, no chest pain, has some dyspnea on exertion and chest tightness during breathing, no abdominal pain, no diarrhea, no dysuria. Infectious diseases consult is requested to further evaluate and manage. Review of Systems - Review of Systems All systems: reviewed and no additional remarkable complaints except (as per HPI ) Past Patient History - Infectious Disease Hx of Infectious Diseases: None - Tetanus Immunizations Tetanus Immunization: Unknown - Past Social History Smoking Status: Former Smoker - CARDIAC Hx Cardiac Disorders: Yes Hx Pacemaker: No - PULMONARY Hx Respiratory Disorders: Yes (SMOKED 1-2 PPD QUIT 1999) Hx Chronic Obstructive Pulmonary Disease (COPD): Yes Hx Emphysema: Yes Hx Pneumonia: Yes - NEUROLOGICAL Hx Neurological Disorder: Yes (RESTLESS LEG SYNDROME) - HEENT Hx HEENT Problems: Yes (reading glasses) Hx Cataracts: Yes (b/l cat sx) Other/Comment: voice hoarse - RENAL Hx Chronic Kidney Disease: No - ENDOCRINE/METABOLIC Hx Endocrine Disorders: No - HEMATOLOGICAL/ONCOLOGICAL Hx Blood Disorders: Yes Hx Anemia: Yes Hx Cancer: Yes (esophogeal CA COMPLETED RADIATION) - INTEGUMENTARY Hx Dermatological Problems: Yes 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) Hx Melanoma: Yes (removed from back) Other/Comment: pt had shingles in 10/2015 r buttock around to r groin rash faded , "some" residual pain on lyrica (previous triage) - MUSCULOSKELETAL/RHEUMATOLOGICAL Hx Musculoskeletal Disorders: Yes Hx Arthritis: Yes ("all over") Hx Falls: No - GASTROINTESTINAL Hx Gastrointestinal Disorders: Yes Hx Gastroesophageal Reflux: Yes HX Swallowing Problems: Yes - GENITOURINARY/GYNECOLOGICAL Hx Genitourinary Disorders: Yes Hx Prostate Problems: Yes (ENLARGED,BPH) - PSYCHIATRIC Hx Psychophysiologic Disorder: Yes (INSOMNIA) Hx Anxiety: Yes Hx Depression: Yes Hx Substance Use: No - SURGICAL HISTORY Hx Surgeries: Yes (BILATERAL CATARACT SURGERY) Hx Appendectomy: Yes Hx Mastectomy: No - ANESTHESIA Hx Anesthesia: Yes Hx Anesthesia Reactions: No Hx Malignant Hyperthermia: No Meds Allergies/Adverse Reactions: Allergies Allergy/AdvReac Type Severity Reaction Status Date / Time No Known Allergies Allergy Verified 03/22/17 20:32 - Medications Medications: Current Medications Acetaminophen (Tylenol 325mg Tab) 650 mg PO Q6H PRN PRN Reason: Fever >100.4 F Acetylcysteine (Acetylcysteine 20%) 4 ml IH [id number] [facility] Last Admin: 03/22/17 20:02 Dose: 4 ml Alprazolam (Xanax) 0.25 mg PO Q12 PRN; Protocol PRN Reason: Anxiety Stop: 03/29/17 22:01 Last Admin: 03/23/17 11:20 Dose: 0.25 mg Aspirin (Ecotrin) 81 mg PO DAILY [facility] Last Admin: 03/23/17 11:06 Dose: 81 mg Benzonatate (Tessalon Perles) 200 mg PO TID [facility] Last Admin: 03/23/17 11:06 Dose: 200 mg Diazepam (Valium) 5 mg PO HS PRN; Protocol PRN Reason: Insomnia Last Admin: 03/23/17 01:52 Dose: 5 mg Enoxaparin Sodium (Lovenox) 40 mg SC DAILY [facility] PRN Reason: Protocol Last Admin: 03/23/17 11:06 Dose: 40 mg Escitalopram Oxalate (Lexapro) 5 mg PO DAILY [facility] Last Admin: 03/23/17 11:07 Dose: 5 mg Guaifenesin (Mucinex La) 600 mg PO BID [facility] Last Admin: 03/23/17 11:07 Dose: 600 mg Cefepime HCl (Maxipime 2gm) 2 gm in 100 mls @ 100 mls/hr IVPB Q12 [facility] Stop: 03/27/17 22:01 Last Admin: 03/23/17 11:07 Dose: 100 mls/hr Levalbuterol HCl (Xopenex) 0.63 mg IH [id number] PRN PRN Reason: Shortness of Breath Loratadine (Claritin) 10 mg PO DAILY [facility] Last Admin: 03/23/17 11:07 Dose: 10 mg Methylprednisolone (Solu-Medrol) 40 mg IVP Q6 [facility] Last Admin: 03/23/17 05:37 Dose: 40 mg Montelukast Sodium (Singulair) 10 mg PO HS [facility] Last Admin: 03/22/17 22:12 Dose: 10 mg Non-Formulary Medication (Quinine Sulfate) 324 mg PO HS [facility] Last Admin: 03/23/17 01:21 Dose: Not Given Nystatin (Nystatin Oral Susp) 5 ml PO QID [facility] Last Admin: 03/23/17 11:05 Dose: 5 ml Pantoprazole Sodium (Protonix Ec Tab) 40 mg PO DAILY [facility] Last Admin: 03/23/17 11:06 Dose: 40 mg Pregabalin (Lyrica) 100 mg PO TID [facility] Last Admin: 03/23/17 11:07 Dose: 100 mg Sucralfate (Carafate Oral Susp) 1 gm PO BID [facility] Last Admin: 03/23/17 11:05 Dose: 1 gm Tiotropium [place] (Spiriva) 18 mcg IH DAILY [facility] Last Admin: 03/23/17 11:06 Dose: 18 mcg Tramadol HCl (Ultram) 50 mg PO Q8H PRN PRN Reason: Pain, moderate (4-7) Last Admin: 03/23/17 01:51 Dose: 50 mg Physical Exam - Constitutional Appears: Cachectic, Chronically Ill - Head Exam Head Exam: NORMAL INSPECTION - ENT Exam ENT Exam: Mucous Membranes Moist - Neck Exam Neck exam: Negative for: Lymphadenopathy, Meningismus - Respiratory Exam Respiratory Exam: Decreased Breath Sounds, Wheezes - Cardiovascular Exam Cardiovascular Exam: +S1, +S2 - GI/Abdominal Exam GI & Abdominal Exam: Soft. absent: Tenderness Results - Vital Signs Recent Vital Signs: Last Vital Signs Temp 97.1 F L 03/23/17 05:52 Pulse 70 03/23/17 06:00 Resp 20 03/23/17 05:52 BP 100/51 L 03/23/17 05:52 Pulse Ox 98 03/23/17 05:52 - Labs Result Diagrams: 03/23/17 07:30 03/23/17 06:30 Labs: Laboratory Results - last 24 hr 03/22/17 03/23/17 03/23/17 17:55 06:30 07:30 WBC 20.2 H RBC 3.50 Hgb 9.5 L D Hct 30.2 L MCV 86.3 MCH 27.1 MCHC 31.5 RDW 17.2 H Plt Count 273 MPV 9.2 Gran % 97.5 H Lymph % (Auto) 1.6 L [place] % (Auto) 0.9 L Eos % (Auto) 0.0 L Baso % (Auto) 0.0 Gran # 19.65 H Lymph # 0.3 L [place] # 0.2 Eos # 0.0 Baso # 0.00 Sodium 136 Potassium 4.4 Chloride 97 L Carbon Dioxide 32 Anion Gap 12 BUN 18 Creatinine 0.4 L Est GFR ( Amer) > 60 Est GFR (Non-Af Amer) > 60 Random Glucose 150 H Calcium 9.7 Total Bilirubin 0.5 AST 25 ALT 39 Alkaline Phosphatase 54 Total Protein 5.8 Albumin 3.1 Globulin 2.7 Albumin/Globulin Ratio 1.1 Urine Color Yellow Urine Appearance Sl cloudy Urine pH 6.0 Ur Specific [place] 1.025 Urine Protein Trace H Urine Glucose (UA) Negative Urine Ketones 15 H Urine Blood Negative Urine Nitrate Negative Urine Bilirubin Small H Urine Urobilinogen 0.2 Ur Leukocyte Esterase Trace H Urine RBC 0 - 2 Urine WBC 2 - 5 Ur Epithelial Cells 4 - 5 Urine Bacteria Few Assessment & Plan - Assessment and Plan (Free Text) Plan: Assessment consider sepsis due to acute bronchitis history of severe sepsis with respiratory failure from lung cavitary lesion in the right upper lobe - lung pyogenic abscess with Pseudomonas - no evidence of TB; S/P treatment with 6 weeks of antibiotics in 2017 end-stage COPD with history of heavy smoking esophageal cancer CAD basal cell CA S/P appendectomy Plan will start Doxcycline and MErrem pending blood and sputum cx, PCT; CXR did not show pneumonia but showed decreased size of right upper lobe cavitary lesion overall prognosis is poor
[2017-03-23] MEDS: Levalbuterol 0.63 MG/3 ML Inhal Soln UD IH PRN ×2 (13:49→21:25)
[2017-03-23] MEDS ORDERED: Meropenem 1 GM in Dextrose 5% In Water 100 ML IVPB SCH (14:00)
[2017-03-23] MEDS: Acetylcysteine 20% Inhal Soln (4ml) IH SCH ×2 (14:05→21:25)
[2017-03-23] MEDS: Meropenem IV 1 gm in NS 50 ML IVPB SCH ×2 (14:14→22:46)
[2017-03-24] MEDS: Acetylcysteine 20% Inhal Soln (4ml) IH SCH ×4 (02:47→20:58)
[2017-03-24] MEDS: Levalbuterol 0.63 MG/3 ML Inhal Soln UD IH PRN ×4 (02:47→20:58)
--- NOTE | 2017-03-24 03:12 | PN ---
DATE: LOCATION: The patient is in room 376, bed 2. SUBJECTIVE: This is a 71-year-old white male with a past medical history significant for end-stage COPD with history of heavy smoking. In addition to COPD, he has extensive emphysema, esophageal cancer, coronary artery disease, basal cell cancer, status post appendectomy, history of severe sepsis, some respiratory failure from cavity lung disease in the right upper lobe, pyogenic abscess treated with Pseudomonas, status post treatment of 6 weeks of antibiotics from 12/2016 to 02/2017, came in to the emergency room as he was just been discharged from the hospital on 03/07/2017 came to the ER complaining of shaking chills associated with cough and shortness of breath for the past 48 hours. According to the , patient has been for the past week, but the chills only happened a day prior to the admission which has been a chore for him to go to the bathroom. Apparently, he had gone to the bathroom and he had been having some loose bowel movement intermittently and then right after the bowel movement he felt very chilly and he was shaking like a leaf as per the and based on that, patient decided to come back to the emergency room because of the shaking chills. In the ER admission, he did not have a fever but had 1 episode of dizzy spell prior to the admission. Denies any hemoptysis. No headache. No dizziness. No rhinorrhea. No sore throat. No chest pain. Patient definitely has dyspnea on exertion. Chest tightness during breathing. No abdominal pain but has been having triptan. When he goes to the bathroom and he has to exert himself, that is when he felt the chill. No dysuria. Patient was advised for the admission. Patient has been strictly following a pureed diet at home as per last recommendation when he left the hospital because of the concern of aspiration and the observation of multiple areas of narrowing on the esophagogram. The patient at that time was found to be very pale and he had just completed radiation and was not a candidate for any further interventional procedures such as upper endoscopy at that point in time. Patient is now admitted with the aforementioned complaints. PHYSICAL EXAMINATION GENERAL: Patient is examined in bed. He is sitting up in the bed. Patient appears cachectic, chronically ill. VITAL SIGNS: Reviewed. T-max of 97.1, pulse of 70, respiration is 20, blood pressure is 105/51, pulse oximetry is 98% on nasal oxygen. HEENT: Temporal muscle wasting is noted. Head is normocephalic, atraumatic. Conjunctivae pale. Sclerae is anicteric. Pupils are equally reactive to light and accommodation. Examination of the oropharynx reveals no oropharyngeal lesions. Tongue is moist. NECK: Supple. There is no adenopathy. No jugular venous distention noted. Accessory muscles are in action. CARDIOVASCULAR: Reveals PMI to be in the fifth intercostal space inside the midclavicular line. S1 and S2 are normal. No gallop or murmur is heard. LUNGS: Revealed bilateral wheezes and rhonchi with prolonged expiratory phase. The patient may need an additional nebulizer in addition to the one that is currently on. He is awaiting input from Dr. Srivastava, the turbine mechanic, on this case. Medications will be listed below. ABDOMEN: Soft, nontender. No rebound, rigidity, or guarding is noted. EXTREMITIES: Reveal no cyanosis, clubbing, or edema. NEUROLOGIC: Reveals no focal deficits. Flattened flexors. GENITOURINARY AND RECTAL: Deferred at this time. MEDICATIONS: Patient's medications were reviewed. He is on Tylenol 650 q.6 h. p.r.n. He is on Mucomyst 4 mL q.6 h. He is on Xanax 0.25 mg q.12 hours p.r.n. He is on aspirin 81 mg daily. He is on Tessalon 200 mg t.i.d. He is on valium 5 mg p.o. at bedtime p.r.n. He is on Lovenox 40 mg daily. He is on Lexapro 5 mg daily. He is on Mucinex at 600 mg p.o. b.i.d. He is on cefepime 2 g q.12 hours. He is on Xopenex 0.63 mg inhaled q.6 hours p.r.n. He is on Claritin 10 mg daily. He is on methylprednisolone 40 mg q.6 hours, Singulair 10 mg p.o. at bedtime. He is on quinine sulfate 325 mg p.o. at bedtime for leg cramps. He is on nystatin 5 mL q.i.d. He is on Protonix 40 mg p.o. daily, Lyrica 100 mg t.i.d., Carafate 1 gm b.i.d., Spiriva 18 mcg inhaled daily, tramadol 50 mg p.o. q.8 hours p.r.n. LABORATORY DATA: Labs today were reviewed. White count is 20.2, hemoglobin 9.5, hematocrit 30.2, platelet count is 273,000. Sodium is 136, potassium 4.4, chloride is 97, CO2 is 32, BUN is 18, and creatinine 0.4. Blood sugar is 150. ASSESSMENT: Patient has locally advanced carcinoma of the esophagus, status post primary proton beam radiation to the lower esophagus and to the periesophageal nodes completed about a month and a half ago, has had since then issues with the cavitary lesion, thought to be a cavitary pneumonia secondary to Pseudomonas, treated with 6 weeks of antibiotics, went home, had severe intercurrent admissions for exacerbation of his chronic obstructive pulmonary disease and intercurrent infections with failure to thrive. He is now readmitted with possibly sepsis secondary to chronic on acute bronchitis, history of severe sepsis with respiratory failure from the cavitary lesion on the right lobe, endstage chronic obstructive pulmonary disease with history of heavy smoking , coronary artery disease, basal cell cancer, stage 3 esophagus, the extent of which post therapy is yet to be determined, as the patient has not been able to get a PET CT scan as he has gotten hospitalized. PLAN: I discussed the findings with the patient and patient's . She is concerned that even though he is eating a little bit better, he is not gaining weight and that he has been having chills every time he tries to go to the bathroom which was a very big issue with Dr. Stephens. In the meantime, the antibiotics have been switched over to doxycycline and Merrem pending blood and sputum cultures. Chest x-ray did not show any pneumonia at this time, a decrease in the size of the right upper lobe cavitary lesion. Check with Carola Syed about doing another CAT scan . We will get input from Dr. Gardner regarding the timing of an endoscopy or at least reassess the situation with the carcinoma of the esophagus, as there were two separate areas of stricture in the last barium swallow study. Patient will be added Megace to increase his weight gain. He is on Lovenox already, so he is protected for any DVT issues at this point in time. Overall prognosis is guarded. I had explained all my findings in detail to the patient's . We will follow through with further treatment plan after discussing with the consultants. Time spent with the patient, greater than 45 minutes correlating information, gathering data, and documentation. María Ferreira MD
--- NOTE | 2017-03-24 04:41 | CON ---
DATE: 03/23/2017 REASON FOR CONSULTATION: Esophageal cancer, esophageal stricture, dysphagia, fever. HISTORY OF PRESENT ILLNESS: This is a 71-year-old patient with past medical history of end-stage COPD was found to have a positive PET scan and also some distal esophageal thickening noticed during the preop evaluation for lung transplant at [facility]. He was found to have esophageal cancer and the patient had completed chemotherapy. The patient had admitted with pneumonia. The patient had esophagogram done on 03/06/2017, which showed esophageal stricture, but the patient was able to tolerate the pureed diet. As per the patient's , who was at bedside at the time of examination, the patient had no problem in eating food. He had acute onset of shakiness and chills. He was found to have fever in the No complaints of any abdominal pain. No vomiting He was doing well until then. PAST MEDICAL HISTORY: Other past medical history is significant for as above, history of coronary artery disease, basal cell carcinoma, melanoma. FAMILY HISTORY: Noncontributory. SOCIAL HISTORY: He is an ex-smoker, denies alcohol use. REVIEW OF SYSTEMS: Positive as above. PHYSICAL EXAMINATION: GENERAL: The patient is on home oxygen. The patient did have recurrent pneumonia in the past. VITAL SIGNS: Temperature 97.5, blood pressure 110/64, pulse rate 91, respirations 18. HEENT: Atraumatic, anicteric. NECK: Supple. LUNGS: Bilateral air entry present. Few scattered rhonchi present. ABDOMEN: Soft, there is no mass, no tenderness. EXTREMITIES: No cyanosis. No clubbing. NEUROLOGIC: Alert and oriented. Moves all the extremities. LABORATORY DATA: Hemoglobin 9.5, hematocrit 32.2, platelets 273, white cell count 20.2. Chemistry; sugar is 150 otherwise chemistry is unremarkable. IMPRESSION: This is a 71-year-old patient with esophageal cancer, stricture of the esophagus, able to tolerate pureed diet, history of recurrent pneumonia, cavitary lesion in the right upper lobe, recently discharged from the hospital following treatment for lung pyogenic abscess, Pseudomonas, admitted because of fever,chills cough and shortness of breath. Denies any difficulty in following pureed diet. The patient had noticed to have temperature of 102 prior to admission. Likely cause to be ruled out is severe sepsis. 1. Acute bronchitis rule out pneumonia. 2. End-stage chronic obstructive pulmonary disease. 3. Esophageal cancer with stricture. 4. Other comorbidities include coronary artery disease. RECOMMENDATIONS: 1. Continue the pureed diet supplement. 2. Continue antibiotics as per ID. 3. I had a detailed discussion with the patient and also the patient's who was at bedside. We will continue to closely follow up his care and suggest further management based on the clinical course. The patient was on prednisone at home. Partly this could be contributory also to this high leukocytosis; however, in view of the high fever and steroid continue the antibiotics and close followup. Thank you very much for allowing us to participate in the care of the patient. Maribell Gardner MD MTDOsmani
--- NOTE | 2017-03-24 04:48 | CON ---
DATE: 03/23/2017 PULMONARY CONSULTATION REFERRING PHYSICIAN: Dr. Abhijeet Vigil. REASON FOR CONSULTATION: Cough, shortness of breath, and exacerbation of COPD. HISTORY OF PRESENT ILLNESS: This is a 71-year-old male well known to me from previous admission, currently at home with minimal exacerbation of syncope, COPD, had shaking chills with fever of 101, heart rate went to 150, brought in to the Emergency Room where he was afebrile, but was tachypneic and tachycardic, who was admitted for further workup. Last night, he was started on antibiotics, was started on IV and inhaled bronchodilator was started with some benefit and felt better. Presently, sitting up in a chair. is at bedside. He feels better. Decreased cough. Decreased shortness of breath. No nausea. No vomiting. No diarrhea, leg pain or leg swelling. PAST MEDICAL HISTORY: Chronic obstructive lung disease, esophageal cancer, history of radiation therapy, history of SIADH, restless leg syndrome, history of melanoma of the skin, status post aspiration pneumonia of the right upper lung with cavitary lesion, history of basal cell carcinoma, steroids dependent. ALLERGIES: NONE KNOWN. FAMILY HISTORY: No significant cardiopulmonary disease reported. SOCIAL HISTORY: Stop smoking. No history of alcohol abuse. MEDICATIONS: He is on Mucomyst 20% 4 mL q.6 hours, Carafate 1 g twice a day, Claritin 10 mg daily, doxycycline 100 mg twice a day, Ecotrin 81 mg daily, Lexapro 5 mg daily, Lovenox 40 mg daily, Lyrica 100 mg 3 times a day, meropenem 1 g q.8 hours, Mucinex, Lasix 100 mg twice a day, nystatin 5 mL 4 times a day, Protonix 40 mg daily, quinine sulfate 325 mg at bedtime, Singulair 10 mg daily, Solu-Medrol 40 mg q.6 hours, Spiriva 18 mcg daily, Tessalon [place] 200 mg 3 times a day, Tylenol p.r.n., Ultram 50 mg q. 8 hours p.r.n., Valium 5 mg at bedtime p.r.n., Xanax 0.25 mg twice a day, and Xopenex inhaled q.6 hours. REVIEW OF SYSTEMS: Headache, had some rhinitis, cough, and shortness of breath. No chest pain. No nausea. No vomiting. No diarrhea, leg pain or leg swelling. PHYSICAL EXAMINATION: GENERAL: Sitting up in the chair, is at bedside. VITAL SIGNS: Temperature is 98, heart rate is 103, respiratory rate is 18, blood pressure is 110/64, and pulse oximetry is 96% on 2 liters nasal cannula. HEENT: Moist mucous membranes. Crowded airway. NECK: Supple. No JVD. LUNGS: Poor airflow. Prolonged expiratory phases with wheezing. HEART: S1 and S2. ABDOMEN: Soft and nontender. No organomegaly. EXTREMITIES: There is no edema. NEUROLOGIC: Awake and alert. Follow simple commands. LABORATORY DATA: Shows hemoglobin 9.5, hematocrit 30.2, WBC 20,000, and platelets 273. INR 0.91 and PTT 32. Sodium 136, potassium 4.4, chloride 97, bicarbonate 32, BUN 18, creatinine 0.4, glucose 150, calcium 9.7, AST 25, ALT 39, alkaline phosphatase 54, and albumin is 3.1. Microbiology; blood culture, urine culture, there is no growth. Chest x-ray done yesterday in ER shows persistent cavity mass in right upper lobe. IMPRESSION AND PLAN: Chronic obstructive lung disease with exacerbation of right upper lobe cavitary mass, esophageal cancer with stricture and Pseudomonas in the sputum on last admission. Pulmonary point of view doing okay. We will decrease Solu-Medrol to 40 q.8 hours, antibiotics as per Infectious Disease. Gastric prophylaxis, DVT prophylaxis, fall precaution, aspiration precaution, high risk for aspiration secondary to esophageal stricture and carcinoma. The patient will be seen by Infectious Disease. I had long discussion with Dr. Ferreira yesterday. Spoke to the patient's at bedside. All the questions answered. Thank you and we will follow with you. Jesika Srivastava MD
[2017-03-24] MEDS: MethylPREDNISolone 40 mg Vial IVP SCH ×3 (05:49→21:36)
[2017-03-24] MEDS: Meropenem IV 1 gm in NS 50 ML IVPB SCH ×3 (05:49→22:50)
[2017-03-24] MEDS: Pantoprazole 40 mg EC Tab PO SCH (09:51)
[2017-03-24] MEDS: Megestrol Acetate 40 mg/ml Cup PO SCH (09:51)
[2017-03-24] MEDS: Sucralfate 1 gm/10 ml Oral Susp UD PO SCH ×2 (09:51→16:45)
[2017-03-24] MEDS: Enoxaparin 40 mg Syringe SC SCH (09:51)
[2017-03-24] MEDS: Tiotropium 18 mcg Cap For Inhalation IH SCH (09:51)
[2017-03-24] MEDS: guaiFENesin 600 mg ER Tab PO SCH ×2 (09:51→18:38)
[2017-03-24] MEDS: Nystatin 100,000 Units/ml Oral Susp 5 ml UD PO SCH ×4 (09:51→21:36)
--- NOTE | 2017-03-24 12:05 | CP.PCM.PN ---
Subjective - Date & Time of Evaluation Date of Evaluation: 03/24/17 Time of Evaluation: 11:35 - Subjective Subjective: Still with cough, no fevers, not in distress. Objective - Vital Signs/Intake and Output Vital Signs (last 24 hours): Temp Pulse Resp BP Pulse Ox 98 F 68 20 101/61 98 03/24/17 06:00 03/24/17 06:00 03/24/17 06:00 03/24/17 06:00 03/24/17 06:00 Intake and Output: 03/24/17 03/24/17 06:59 18:59 Intake Total 440 Output Total 1200 Balance -760 - Medications Medications: Current Medications Acetaminophen (Tylenol 325mg Tab) 650 mg PO Q6H PRN PRN Reason: Fever >100.4 F Acetylcysteine (Acetylcysteine 20%) 4 ml IH [id number] [facility] Last Admin: 03/24/17 08:31 Dose: 4 ml Alprazolam (Xanax) 0.25 mg PO Q12 PRN; Protocol PRN Reason: Anxiety Stop: 03/29/17 22:01 Last Admin: 03/24/17 06:03 Dose: 0.25 mg Aspirin (Ecotrin) 81 mg PO DAILY [facility] Last Admin: 03/24/17 09:51 Dose: 81 mg Benzonatate (Tessalon Perles) 200 mg PO TID [facility] Last Admin: 03/24/17 09:51 Dose: 200 mg Diazepam (Valium) 5 mg PO HS PRN; Protocol PRN Reason: Insomnia Last Admin: 03/23/17 01:52 Dose: 5 mg Enoxaparin Sodium (Lovenox) 40 mg SC DAILY [facility] PRN Reason: Protocol Last Admin: 03/24/17 09:51 Dose: 40 mg Escitalopram Oxalate (Lexapro) 5 mg PO DAILY [facility] Last Admin: 03/24/17 09:51 Dose: 5 mg Guaifenesin (Mucinex La) 600 mg PO BID [facility] Last Admin: 03/24/17 09:51 Dose: 600 mg Doxycycline Hyclate 100 mg/ (Sodium Chloride) 100 mls @ 100 mls/hr IVPB Q12 [facility] PRN Reason: Protocol Last Admin: 03/24/17 09:14 Dose: 100 mls/hr Meropenem (Merrem Iv 1 Gm Premix) 50 mls @ 100 mls/hr IVPB Q8 [facility] Last Admin: 03/24/17 05:49 Dose: 100 mls/hr Levalbuterol HCl (Xopenex) 0.63 mg IH [id number] PRN PRN Reason: Shortness of Breath Last Admin: 03/24/17 08:31 Dose: 0.63 mg Loratadine (Claritin) 10 mg PO DAILY [facility] Last Admin: 03/24/17 09:51 Dose: 10 mg Megestrol Acetate (Megace) 400 mg PO DAILY [facility] Last Admin: 03/24/17 09:51 Dose: 400 mg Methylprednisolone (Solu-Medrol) 40 mg IVP Q8 [facility] Last Admin: 03/24/17 05:49 Dose: 40 mg Montelukast Sodium (Singulair) 10 mg PO HS [facility] Last Admin: 03/23/17 21:34 Dose: 10 mg Non-Formulary Medication (Quinine Sulfate) 324 mg PO [facility] Last Admin: 03/23/17 21:36 Dose: Not Given Nystatin (Nystatin Oral Susp) 5 ml PO QID [facility] Last Admin: 03/24/17 09:51 Dose: 5 ml Pantoprazole Sodium (Protonix Ec Tab) 40 mg PO 0600 [facility] Pregabalin (Lyrica) 100 mg PO TID [facility] Last Admin: 03/24/17 09:51 Dose: 100 mg Sucralfate (Carafate Oral Susp) 1 gm PO 0600,1600 [facility] Tiotropium [place] (Spiriva) 18 mcg IH DAILY [facility] Last Admin: 03/24/17 09:51 Dose: 18 mcg Tramadol HCl (Ultram) 50 mg PO Q8H PRN PRN Reason: Pain, moderate (4-7) Last Admin: 03/24/17 10:32 Dose: 50 mg - Labs Labs: 03/23/17 07:30 03/23/17 06:30 PT 10.3 SECONDS (9.4-12.5) 03/22/17 16:05 INR 0.91 (0.93-1.08) L 03/22/17 16:05 APTT 31.6 Seconds (25.1-36.5) 03/22/17 16:05 - Constitutional Appears: Cachectic, Chronically Ill - Head Exam Head Exam: NORMAL INSPECTION - Respiratory Exam Respiratory Exam: Decreased Breath Sounds - Cardiovascular Exam Cardiovascular Exam: +S1, +S2 - GI/Abdominal Exam GI & Abdominal Exam: Soft. absent: Tenderness Assessment and Plan - Assessment and Plan (Free Text) Plan: Assessment consider sepsis due to acute bronchitis in a patient with persistent right upper lobe cavitary lesion history of severe sepsis with respiratory failure from lung cavitary lesion in the right upper lobe - lung pyogenic abscess with Pseudomonas - no evidence of TB; S/P treatment with 6 weeks of antibiotics in 2017 end-stage COPD with history of heavy smoking esophageal cancer CAD basal cell CA S/P appendectomy Plan continue Doxcycline and Merrem pending blood and sputum cx, PCT; CXR did not show pneumonia but showed decreased size of right upper lobe cavitary lesion will discuss with Dr. Srivastava overall prognosis is poor
--- NOTE | 2017-03-24 20:54 | PN ---
DATE: 03/24/2017 SUBJECTIVE: This patient was seen and evaluated earlier today. The patient is comfortable. Tolerating the pureed diet. Now, he is getting supplement. PHYSICAL EXAMINATION: VITAL SIGNS: Remains afebrile. Blood pressure 118/68, pulse 102. HEENT: Atraumatic, anicteric. NECK: Supple. LUNGS: Bilateral air entry present. Few scattered rhonchi present. ABDOMEN: Soft. No tenderness. IMPRESSION: This 71-year-old patient has a carcinoma of the esophagus with the stricture, unable to tolerate the pureed diet, recently discharged following with treatment for cavitary lesion and pneumonia. The patient was admitted with chills, sepsis and antibiotics. The Oncology note by Dr. Ferreira was reviewed. The question is about the timing of the endoscopy. I would discuss with Dr. Ferreira regarding the endoscopy, which carries higher risk for him in view of the respiratory status, moreover since the patient is able to tolerate the pureed diet. The risks and benefits of the procedure will be discussed with Dr Ferreira and also with the family. Thank you very much for allowing us to participate in the care of the patient. Maribell Gardner MD MTDD
[2017-03-24] MEDS: QUININE SULFATE 324 MG PO SCH (21:38)
--- NOTE | 2017-03-24 22:59 | PN ---
PULMONARY PROGRESS NOTE DATE: 03/24/2017 REFERRING PHYSICIAN: Abhijeet Vigil MD SUBJECTIVE: He is sitting up in the chair. is at bedside. Night was unremarkable. Feels better. Decreased cough. Decreased shortness of breath. No nausea, vomiting, or diarrhea. No leg pain or leg swelling. PHYSICAL EXAMINATION GENERAL: In no acute distress. VITAL SIGNS: Temperature is 98, heart rate is 102, respiratory rate is 20, blood pressure is 118/68, and pulse ox is 97% on nasal cannula. HEENT: Moist mucous membranes. No ulcer or thrush. NECK: Supple. No JVD. LUNGS: Have a fair airflow with rhonchi. HEART: S1 and S2. ABDOMEN: Soft and nontender. No organomegaly. EXTREMITIES: No edema. NEUROLOGIC: Awake, alert and follow simple commands. MEDICATIONS: He is on Mucomyst 20% inhaled q. 6 hours, Carafate 1 g twice a day, Claritin 10 mg daily, doxycycline 100 mg twice a day, Ecotrin 81 mg daily, Lexapro 5 mg daily, Lovenox 40 mg daily, Megace 40 mg daily, meropenem 1 g q. 8 hours, Mucinex LA 600 mg twice a day, nystatin 5 mL q.i.d., Protonix 40 mg daily, quinine sulfate 325 mg at bedtime, Singulair 10 mg daily, Solu-Medrol 40 mg q. 8 hour, Spiriva 18 mcg inhaled daily, Tessalon Perles 200 mg 3 times a day, Tylenol p.r.n., Ultram 50 mg q. 8 hours p.r.n., Valium 5 mg at bedtime p.r.n., Xanax 0.25 mg q. 12 hour p.r.n. and Xopenex inhaled q. 6 hours. LABORATORY DATA: Reviewed and noted. No new laboratory data reported since yesterday. Microbiology; blood culture and urine culture, there is no growth. IMPRESSION AND PLAN: Exacerbation of chronic obstructive lung disease has a right upper lobe cavitary mass, esophageal cancer, may have a component of sleep apnea syndrome, claustrophobia, could not use continuous positive airway pressure. Case discussed with Dr. Ferreira. Spoke to the patient's at bedside. We will decrease Solu-Medrol to 40 q. 12 hour. Continue antibiotics as per Infectious Disease. Gastric prophylaxis. Sequential compression device to lower extremity. Upon discharge we will need to assist esophageal cancer disease. Thank you and we will follow with you. Jesika Srivastava MD
--- NOTE | 2017-03-24 23:23 | PN ---
DATE: The patient is in room 376, bed 2. The patient is a 71-year-old male with locally advanced carcinoma of the esophagus and a background history of COPD, pulmonary emphysema, end-stage lung disease, on nasal O2 continuously along with multiple medications including nebulizers and mucolytic agents, recently was in the hospital several times for a cavitary pneumonia in the right upper lobe, which has progressively improved after getting 6 weeks of IV antibiotics and was recently discharged from the hospital on 03/07/2017. He was readmitted to the hospital with a 48-hour history of fevers, chills, coughing, and the chills were shaking and unstoppable just prior to admission, temperature at home had gone up to 102 degrees. The patient was advised admission after being evaluated in the ER and currently he is on broad-spectrum IV antibiotics after being seen by Pulmonary and by ID as well. SUBJECTIVE: The patient is feeling better today. Denies any significant cough. If he brings up any phlegm, it is clear. No fevers. No chills. The patient is in no acute distress. PHYSICAL EXAMINATION: GENERAL: The patient is examined, sitting out of bed in the chair. VITAL SIGNS: Stable. T-max is 98.4, pulse is 68, respirations 20, blood pressure is 101/61, pulse ox is 98% on nasal cannula. HEENT: Head is normocephalic and atraumatic. Temporal muscle wasting is noted. Examination of the oropharynx reveals no oropharyngeal lesions. Tongue is moist. No ulcerations are noted. NECK: Supple. There is no adenopathy. No jugular venous distention noted. LUNGS: Clear to percussion and auscultation. Examination of the lungs reveal bilateral wheezes and rhonchi. CARDIOVASCULAR: Examination of the cardiovascular system reveals PMI to be in the fifth intercostal space inside the midclavicular line. S1 and S2 are normal. No gallop or murmur is heard. ABDOMEN: Scaphoid, nontender. Bowel sounds are present. No rebound, rigidity, or guarding is noted. EXTREMITIES: Examination of the lower extremities reveal no cyanosis, clubbing, or edema. NEUROLOGIC: Higher functions to be normal. No focal deficits are noted. LYMPHATICS: Examination for adenopathy reveals no enlargement of lymph nodes in the neck, axilla, or groin. GENITOURINARY: Deferred. RECTAL: Deferred. MEDICATIONS: The patient's medications were reviewed and they include the following: The patient has a long list of medicines. He is on Tylenol 650 q. 4 hours p.r.n., N-acetylcysteine, Mucomyst 4 mL inhale q. 6 hours, Xanax 0.25 mg p.o. q. 12 hours, aspirin 81 mg daily, Tessalon Perles 200 mg t.i.d., valium 5 mg p.o. at bedtime p.r.n., Lovenox 40 mg subcu daily, Lexapro 5 mg daily, Mucinex LA 600 mg b.i.d., doxycycline 100 mg IV q. 12 hours. He is on meropenem 1 g IV q. 8 hours. He is on Xopenex 0.63 mg inhalation therapy q. 6 hours and Claritin 10 mg p.o. daily, Megace 400 mg daily, methylprednisolone 40 mg IV q. 8 hours. He is on Singulair 10 mg p.o. at bedtime, quinine sulphate 325 mg p.o. at bedtime for leg cramps. He is off the Lyrica at this point in time. LABORATORY DATA: Lab data from today reveals a white count of 20,200; hemoglobin is 9.5; hematocrit 30.2; platelet count is 273,000. Sodium is 136, potassium is 4.4, chloride is 97, CO2 is 32, BUN is 18, creatinine is 0.4, and blood sugar is 150. PT and INR are within normal limits. ASSESSMENT, NOTES, AND PLAN: The patient is admitted with fevers, chills, failure to thrive with exacerbation of his chronic obstructive pulmonary disease. We will have to consider sepsis due to acute on chronic bronchitis and the patient has significant end-stage chronic obstructive pulmonary disease and a persistent cavitary lesion of the right upper lobe that has improved, but still seen. History of severe sepsis with respiratory failure from the cavitary lesion in the right upper lobe adenocarcinoma of the esophagus status post primary radiation of proton-beam therapy, the background history of having such significant end-stage chronic obstructive pulmonary disease, on nasal oxygen on continuous basis. Had developed a pyogenic abscess with Pseudomonas, which has improved significantly. No evidence of TB on repeat cultures and the patient is status post 6 weeks of antibiotic therapy. Coronary artery disease, basal cell carcinoma, status post appendectomy. PLAN: We will continue doxycycline and meropenem as per ID. The patient is on bronchodilators along with mucolytics for his lung issues. We will check with Dr. Srivastava regarding planning another CAT scan of the chest with IV contrast. Also check with Dr. Gardner about timing for a possible endoscopy to determine what the EEG studies from prior visits with barium swallow had shown two areas of narrowing to make sure that these are not related to radiation or is a progression of his cancer per se. The patient has not had a repeat PET CT scan upon completion of the proton-beam therapy and/or Xeloda. I had a detailed discussion with the patient. Spoke to his on the phone as well. Overall prognosis is guarded, but yet cautiously optimistic. There was a speculation seen at the edge of the cavitary lesion, etiology of which is unclear, but raised with a question of possibility of the neoplastic process as well. In which case PET CT would be important, but definitely the endoscopy results will help us to realign our plans as far as further treatments are concerned. I have discussed all the findings in detail with the patient and his . Time spent with the patient is greater than an hour in collating all the facts and discussing the findings. We will speak to Dr. Srivastava. We will also speak with Dr. Gardner and Dr. Stephens as well. Time spent is more than an hour, more than 50% of the time was spent [id number] with the patient, discussing and counseling regarding the findings and the plans for further treatments. María Ferreira MD
[2017-03-25] MEDS: Acetylcysteine 20% Inhal Soln (4ml) IH SCH ×4 (03:00→21:30)
[2017-03-25] MEDS: Sucralfate 1 gm/10 ml Oral Susp UD PO SCH ×2 (06:06→15:26)
[2017-03-25] MEDS: Meropenem IV 1 gm in NS 50 ML IVPB SCH ×3 (06:06→21:55)
[2017-03-25] MEDS: Pantoprazole 40 mg EC Tab PO SCH (06:06)
[2017-03-25 07:07] LABS: GRAN # 14.73 (1.4-6.5); HEMOGLOBIN 9.5 g/dL (14.0-18.0); LYMPH # 0.6 (1.2-3.4); LYMPH % 3.4 % (22.0-35.0); MEAN CELL VOLUME 86.5 fl (80.0-105.0); MEAN CORPUSCULAR HEMOGLOBIN 27.3 pg (25.0-35.0); MEAN CORPUSCULAR HGB CONC 31.6 g/dl (31.0-37.0); MEAN PLATELET VOLUME 9.1 fl (7.0-11.0); MONO # 0.7 (0.1-0.6); MONO % 4.6 % (1.0-6.0); RBC 3.48 10^6/uL (3.5-6.1); RED CELL DISTRIBUTION WIDTH 16.9 % (11.5-14.5)
[2017-03-25 07:35] LABS: ALB/GLOB RATIO 1.2 (1.1-1.8); ALBUMIN 3.2 g/dL (3.0-4.8); ALT/SGPT 36 U/L (7-56); AST/SGOT 19 U/L (17-59); BLOOD UREA NITROGEN 15 mg/dL (7-21); CALCIUM 10.2 mg/dL (8.4-10.5); GFR AFRICAN-AMERICAN > 60; GFR NON-AFRICAN AMERICAN > 60
[2017-03-25] MEDS: Nystatin 100,000 Units/ml Oral Susp 5 ml UD PO SCH ×4 (10:09→21:54)
[2017-03-25] MEDS: MethylPREDNISolone 40 mg Vial IVP SCH ×2 (10:09→21:56)
[2017-03-25] MEDS: guaiFENesin 600 mg ER Tab PO SCH ×2 (10:09→17:51)
[2017-03-25] MEDS: Tiotropium 18 mcg Cap For Inhalation IH SCH (10:09)
[2017-03-25] MEDS: Megestrol Acetate 40 mg/ml Cup PO SCH (10:09)
[2017-03-25] MEDS: Enoxaparin 40 mg Syringe SC SCH (10:10)
[2017-03-25] MEDS: Levalbuterol 0.63 MG/3 ML Inhal Soln UD IH PRN ×2 (14:14→21:30)
--- NOTE | 2017-03-25 16:52 | CP.PCM.PN ---
Subjective - Date & Time of Evaluation Date of Evaluation: 03/25/17 Time of Evaluation: 13:00 - Subjective Subjective: Still having cough and SOB but a little less, no fevers overnight. Objective - Vital Signs/Intake and Output Vital Signs (last 24 hours): Temp Pulse Resp BP Pulse Ox 97.7 F 78 18 120/68 94 L 03/25/17 06:00 03/25/17 06:00 03/25/17 06:00 03/25/17 06:00 03/25/17 06:00 Intake and Output: 03/25/17 03/25/17 06:59 18:59 Intake Total 200 Balance 200 - Medications Medications: Current Medications Acetaminophen (Tylenol 325mg Tab) 650 mg PO Q6H PRN PRN Reason: Fever >100.4 F Acetylcysteine (Acetylcysteine 20%) 4 ml IH [id number] [facility] Last Admin: 03/24/17 20:58 Dose: 4 ml Alprazolam (Xanax) 0.25 mg PO Q12 PRN; Protocol PRN Reason: Anxiety Stop: 03/29/17 22:01 Last Admin: 03/24/17 21:43 Dose: 0.25 mg Aspirin (Ecotrin) 81 mg PO DAILY [facility] Last Admin: 03/25/17 10:09 Dose: 81 mg Benzonatate (Tessalon Perles) 200 mg PO TID [facility] Last Admin: 03/25/17 10:09 Dose: 200 mg Diazepam (Valium) 5 mg PO HS PRN; Protocol PRN Reason: Insomnia Last Admin: 03/23/17 01:52 Dose: 5 mg Enoxaparin Sodium (Lovenox) 40 mg SC DAILY [facility] PRN Reason: Protocol Last Admin: 03/25/17 10:10 Dose: 40 mg Escitalopram Oxalate (Lexapro) 5 mg PO DAILY [facility] Last Admin: 03/25/17 10:09 Dose: 5 mg Guaifenesin (Mucinex La) 600 mg PO BID [facility] Last Admin: 03/25/17 10:09 Dose: 600 mg Doxycycline Hyclate 100 mg/ (Sodium Chloride) 100 mls @ 100 mls/hr IVPB Q12 [facility] PRN Reason: Protocol Last Admin: 03/25/17 10:12 Dose: 100 mls/hr Meropenem (Merrem Iv 1 Gm Premix) 50 mls @ 100 mls/hr IVPB Q8 [facility] Last Admin: 03/25/17 06:06 Dose: 100 mls/hr Levalbuterol HCl (Xopenex) 0.63 mg IH [id number] PRN PRN Reason: Shortness of Breath Last Admin: 03/24/17 20:58 Dose: 0.63 mg Loratadine (Claritin) 10 mg PO DAILY [facility] Last Admin: 03/25/17 10:09 Dose: 10 mg Megestrol Acetate (Megace) 400 mg PO DAILY [facility] Last Admin: 03/25/17 10:09 Dose: 400 mg Methylprednisolone (Solu-Medrol) 40 mg IVP Q12 [facility] Last Admin: 03/25/17 10:09 Dose: 40 mg Montelukast Sodium (Singulair) 10 mg PO HS [facility] Last Admin: 03/24/17 21:35 Dose: 10 mg Non-Formulary Medication (Quinine Sulfate) 324 mg PO HS [facility] Last Admin: 03/24/17 21:38 Dose: Not Given Nystatin (Nystatin Oral Susp) 5 ml PO QID [facility] Last Admin: 03/25/17 10:09 Dose: 5 ml Pantoprazole Sodium (Protonix Ec Tab) 40 mg PO 0600 [facility] Last Admin: 03/25/17 06:06 Dose: 40 mg Sucralfate (Carafate Oral Susp) 1 gm PO 0600,1600 [facility] Last Admin: 03/25/17 06:06 Dose: 1 gm Tiotropium [place] (Spiriva) 18 mcg IH DAILY [facility] Last Admin: 03/25/17 10:09 Dose: 18 mcg Tramadol HCl (Ultram) 50 mg PO Q8H PRN PRN Reason: Pain, moderate (4-7) Last Admin: 03/25/17 06:11 Dose: 50 mg - Labs Labs: 03/25/17 06:20 03/25/17 06:20 PT 10.3 SECONDS (9.4-12.5) 03/22/17 16:05 INR 0.91 (0.93-1.08) L 03/22/17 16:05 APTT 31.6 Seconds (25.1-36.5) 03/22/17 16:05 - Constitutional Appears: Cachectic, Chronically Ill - Head Exam Head Exam: NORMAL INSPECTION - ENT Exam ENT Exam: Mucous Membranes Moist - Neck Exam Neck Exam: absent: Meningismus - Respiratory Exam Respiratory Exam: Decreased Breath Sounds - Cardiovascular Exam Cardiovascular Exam: +S1, +S2 - GI/Abdominal Exam GI & Abdominal Exam: Soft. absent: Tenderness Assessment and Plan - Assessment and Plan (Free Text) Plan: Assessment consider sepsis due to acute bronchitis in a patient with persistent right upper lobe cavitary lesion history of severe sepsis with respiratory failure from lung cavitary lesion in the right upper lobe - lung pyogenic abscess with Pseudomonas - no evidence of TB; S/P treatment with 6 weeks of antibiotics in 2017 end-stage COPD with history of heavy smoking esophageal cancer CAD basal cell CA S/P appendectomy Plan continue Doxcycline and Merrem day 3; cultures have been negative; CXR did not show pneumonia but showed decreased size of right upper lobe cavitary lesion will discuss with Dr. Srivastava overall prognosis is poor
--- NOTE | 2017-03-25 22:09 | PN ---
DATE: 03/25/2017 PULMONARY PROGRESS NOTE REFERRING PHYSICIAN: Abhijeet Vigil MD SUBJECTIVE: The patient is lying in the bed, head at 45 degree. Used BiPAP good last night, but could not sleep well. Cough is better. No nausea, vomiting, or diarrhea. No leg pain or leg swelling. OBJECTIVE: GENERAL: In no acute distress. VITAL SIGNS: Temperature is 98, heart rate is 78, respiratory rate is 20, blood pressure 136/790, and pulse ox is 94% on nasal cannula. HEENT: Moist mucous membranes. No ulcer or thrush. NECK: Supple. No JVD. LUNGS: Has a prolong expiratory phase with wheezing. HEART: S1 and S2. ABDOMEN: Soft and nontender. No organomegaly. EXTREMITIES: There is no edema. NEUROLOGIC: Awake, alert and follow simple commands. MEDICATIONS: He is on Mucomyst 20% inhaled q. 6 hours, Carafate 1 g twice a day, Claritin 10 mg daily, doxycycline 100 mg twice a day, Ecotrin 81 mg daily, Lexapro 5 mg daily, Lovenox 40 mg daily, Megace 400 mg daily, meropenem 1 g IV q. 8 hours, Mucinex LA 600 mg twice a day, nystatin oral suspension q.i.d., Protonix 40 mg daily, quinine sulfate 325 mg at bedtime, Singulair 10 mg daily, Solu-Medrol 40 mg q. 12 hour, Spiriva capsule inhaled daily, Tessalon Perles 200 mg 3 times a day, Ultram 50 mg q. 8 hours p.r.n., Valium 5 mg at bedtime p.r.n., Xanax 0.25 mg q. 12 hour p.r.n. and also Xopenex inhaled q. 6 hours. LABORATORY DATA: Shows hemoglobin 9.5, hematocrit 38.1, WBC 16,000, and platelets 296. Sodium 136, potassium 4.2, chloride 97, bicarbonate 35, BUN 15, creatinine 0.5, glucose 95, calcium 10.2, AST 19, ALT 36, alkaline phosphatase 51, and albumin is 3.2. Procalcitonin is 6.72. Microbiology; blood culture, urine culture, there is no growth. IMPRESSION AND PLAN: Exacerbation of chronic obstructive lung disease has a right upper lobe cavitary lesion, esophageal cancer, may have a component of sleep apnea syndrome, claustrophobia, could not use continuous positive airway pressure, BiPAP that much well last night. Procalcitonin is elevated. Continue antibiotics, IV and inhaled bronchodilator, gastric prophylaxis, deep vein thrombosis prophylaxis, aspiration precaution. Has a esophageal cancer with stricture being followed by gastrointestinal. Thank you and we will follow with you. Jesika Srivastava MD
--- NOTE | 2017-03-26 02:16 | PN ---
DATE: SUBJECTIVE: The patient was seen and evaluated earlier today. The patient complains of some increased shortness of breath. PHYSICAL EXAMINATION: VITAL SIGNS: Temperature is 98.1, pulse 108, and blood pressure is 136/79. HEENT: Atraumatic, anicteric. NECK: Supple. HEART: S1 and S2 heard. LUNGS: Bilateral air entry with scattered rhonchi present. ABDOMEN: Soft. There is no tenderness. EXTREMITIES: No cyanosis. No clubbing. LABORATORY DATA: Hemoglobin is 9.5, hematocrit 30.1, WBC is 16, platelets 295, BUN 15, and creatinine 0.5. IMPRESSION: This is a 71-year-old patient with end-stage chronic obstructive pulmonary disease, has a esophageal caner with stricture, tolerating the pureed diet, admitted with fever, increasing shortness of breath. The patient was recently discharged from the hospital for treatment of cavitary lesion and pneumonia. Tolerated the pureed diet. At this point, we would be cautious about doing any endoscopic intervention as this may require patient's intubation, may be difficult to wean off at the present time. We will discuss with cigarette tester, Dr. Srivastava, and also with Dr. Ferreira before contemplating endoscopy. Thank you very much for allowing me to participate in the care of the patient. Maribell Gardner MD
[2017-03-26] MEDS: Acetylcysteine 20% Inhal Soln (4ml) IH SCH ×4 (02:45→20:07)
--- NOTE | 2017-03-26 04:48 | PN ---
DATE: The patient is in room 378, bed 2. SUBJECTIVE: The patient is lying in bed and then was able to sit out into the chair for me. The patient used his BiPAP at midnight last night, but could not sleep well because the patient in the next bed complaining of dry mouth. No nausea, vomiting, or diarrhea. No leg pain or any leg swelling. He is able to eat pureed diet without any significant issues. PHYSICAL EXAMINATION GENERAL: The patient is in no acute distress. VITAL SIGNS: Stable. T-max is 98.4, heart rate is 70, respirations 20, blood pressure is 136/90, and pulse is 94% on nasal cannula. HEENT: Head is normocephalic, atraumatic. Conjunctivae pale. Sclerae are anicteric. Pupils are equally reactive to light and accommodation. Temporal muscle wasting is noted. Examination of the oropharynx reveals moist mucous membranes. No ulcer or thrush. NECK: Supple. No jugular venous distention is noted. No adenopathy is noted. CARDIOPULMONARY: Reveals S1 and S2 to be normal. No gallop or murmur is heard. LUNGS: Revealed prolonged expiratory phase with wheezing bilaterally. ABDOMEN: Soft, scaphoid, and nontender. Liver and spleen not palpable. No rebound, rigidity, or guarding is noted. EXTREMITIES: Reveal no cyanosis, clubbing, or edema. NEUROLOGIC: Higher functions are normal. No focal deficits are noted. MEDICATIONS: The patient is on Mucomyst 20% q.6 hours, Carafate 1 gm twice a day, Claritin 10 mg p.o. daily, doxycycline 100 mg twice daily, Ecotrin 81 mg daily, Lexapro 5 mg daily, Lovenox 40 mg daily, Megace 400 mg daily, meropenem 1 gm IV q.8 hours, Mucinex LA 600 mg twice daily, nystatin oral suspension q.i.d., Protonix 40 mg daily, quinine sulfate 325 mg at bedtime, Singulair 10 mg daily, Solu-Medrol 40 mg IV q.12 hours, Spiriva capsule inhaled daily, Tessalon Perles 200 mg three times a day, Ultram 50 mg p.o. q.8 hours p.r.n., Valium 5 mg at bedtime p.r.n., Xanax 0.25 mg p.o. q.12 hours p.r.n., and Xopenex inhalation q.6 hours. LABORATORY DATA: Shows hemoglobin of 9.5, hematocrit 38, white count of 16,000, and platelet count of 296. Sodium is 136, potassium is 4.2, chloride 97, bicarbonate is 35, BUN is 15, creatinine 0.5, glucose is 95, calcium 10.2, AST is 19, ALT is 36, alkaline phosphatase 51 with an albumin of 3.2. Procalcitonin is 6.72. Microbiology and urine cultures to-date are negative. ASSESSMENT AND PLAN: The patient has exacerbation of chronic obstructive pulmonary disease with a cavitary lesion of the right upper lobe, stage III carcinoma of the esophagus, lower end, may have a component of sleep apnea syndrome and probably aspiration intermittently. The patient is on BiPAP. Procalcitonin is elevated. We will have to consider infection. Continue intravenous antibiotics and inhaled bronchodilators, gastric prophylaxis, deep vein thrombosis prophylaxis, and aspiration precaution. Discussed the case with Dr. Srivastava. I will speak to Dr. Gardner as well. Continue IV antibiotics, pureed diet, and conservative management. We will hold off on any invasive procedures such as endoscopy or bronchoscopy for now until the issue with fevers, chills, and sepsis is resolved. We will check with Dr. Gardner any other noninvasive testing we may have on our hands to further delineate the patient's problems. The patient if continues to remain stable, we plan on doing a PET CT as an outpatient and complete the course of antibiotics. I discussed my findings in detail with the patient and his at his bedside. We will give him Flomax 0.4 mg once a day to help him with his urinary symptoms that he has been having more so now than he used to get that in his last admission. We will continue to monitor his labs and make appropriate decisions. Time spent with the patient was greater than 45 minutes correlating all the information, discussing with various attendings, and reviewing all the labs and the medications. More than 50% of the time was spent in [id number] encounter with the patient. María Ferreira MD [facility] # [id number]
[2017-03-26] MEDS: Meropenem IV 1 gm in NS 50 ML IVPB SCH ×3 (05:33→21:15)
[2017-03-26] MEDS: Pantoprazole 40 mg EC Tab PO SCH (05:33)
[2017-03-26] MEDS: Sucralfate 1 gm/10 ml Oral Susp UD PO SCH ×2 (05:33→16:09)
[2017-03-26] MEDS: Levalbuterol 0.63 MG/3 ML Inhal Soln UD IH PRN ×3 (06:20→20:07)
[2017-03-26] MEDS: Enoxaparin 40 mg Syringe SC SCH (09:12)
[2017-03-26] MEDS: Nystatin 100,000 Units/ml Oral Susp 5 ml UD PO SCH ×4 (09:13→21:07)
[2017-03-26] MEDS: guaiFENesin 600 mg ER Tab PO SCH ×2 (09:13→18:23)
[2017-03-26] MEDS: Megestrol Acetate 40 mg/ml Cup PO SCH (09:13)
[2017-03-26] MEDS: Tiotropium 18 mcg Cap For Inhalation IH SCH (09:13)
[2017-03-26] MEDS: MethylPREDNISolone 40 mg Vial IVP SCH ×2 (09:13→21:07)
--- NOTE | 2017-03-26 13:12 | CP.PCM.PN ---
<Ceci Bhardwaj - Last Filed: 03/26/17 13:12> Subjective - Date & Time of Evaluation Date of Evaluation: 03/26/17 Time of Evaluation: 10:45 - Subjective Subjective: Seen and examined at the bedside earlier today, patient with no acute overnight events. No complaint of nausea, vomiting, or shortness of breath at this time. Patient tolerating oral intake no episodes of dysphagia. Objective - Vital Signs/Intake and Output Vital Signs (last 24 hours): Temp Pulse Resp BP Pulse Ox 97.4 F L 81 19 121/71 98 03/26/17 06:00 03/26/17 06:00 03/26/17 06:00 03/26/17 06:00 03/26/17 06:00 - Medications Medications: Current Medications Acetaminophen (Tylenol 325mg Tab) 650 mg PO Q6H PRN PRN Reason: Fever >100.4 F Acetylcysteine (Acetylcysteine 20%) 4 ml IH [id number] [facility] Last Admin: 03/26/17 07:47 Dose: Not Given Alprazolam (Xanax) 0.25 mg PO Q12 PRN; Protocol PRN Reason: Anxiety Stop: 03/29/17 22:01 Last Admin: 03/25/17 22:16 Dose: 0.25 mg Aspirin (Ecotrin) 81 mg PO DAILY [facility] Last Admin: 03/26/17 09:13 Dose: 81 mg Benzonatate (Tessalon Perles) 200 mg PO TID [facility] Last Admin: 03/26/17 09:12 Dose: 200 mg Diazepam (Valium) 5 mg PO HS PRN; Protocol PRN Reason: Insomnia Last Admin: 03/23/17 01:52 Dose: 5 mg Enoxaparin Sodium (Lovenox) 40 mg SC DAILY [facility] PRN Reason: Protocol Last Admin: 03/26/17 09:12 Dose: 40 mg Escitalopram Oxalate (Lexapro) 5 mg PO DAILY [facility] Last Admin: 03/26/17 09:13 Dose: 5 mg Guaifenesin (Mucinex La) 600 mg PO BID [facility] Last Admin: 03/26/17 09:13 Dose: 600 mg Doxycycline Hyclate 100 mg/ (Sodium Chloride) 100 mls @ 100 mls/hr IVPB Q12 [facility] PRN Reason: Protocol Last Admin: 03/26/17 09:11 Dose: 100 mls/hr Meropenem (Merrem Iv 1 Gm Premix) 50 mls @ 100 mls/hr IVPB Q8 [facility] Last Admin: 03/26/17 05:33 Dose: 100 mls/hr Levalbuterol HCl (Xopenex) 0.63 mg IH [id number] PRN PRN Reason: Shortness of Breath Last Admin: 03/26/17 06:20 Dose: 0.63 mg Loratadine (Claritin) 10 mg PO DAILY [facility] Last Admin: 03/26/17 09:13 Dose: 10 mg Megestrol Acetate (Megace) 400 mg PO DAILY [facility] Last Admin: 03/26/17 09:13 Dose: 400 mg Methylprednisolone (Solu-Medrol) 40 mg IVP Q12 [facility] Last Admin: 03/26/17 09:13 Dose: 40 mg Montelukast Sodium (Singulair) 10 mg PO HS [facility] Last Admin: 03/25/17 21:54 Dose: 10 mg Non-Formulary Medication (Quinine Sulfate) 324 mg PO HS [facility] Last Admin: 03/24/17 21:38 Dose: Not Given Nystatin (Nystatin Oral Susp) 5 ml PO QID [facility] Last Admin: 03/26/17 09:13 Dose: 5 ml Pantoprazole Sodium (Protonix Ec Tab) 40 mg PO 0600 [facility] Last Admin: 03/26/17 05:33 Dose: 40 mg Sucralfate (Carafate Oral Susp) 1 gm PO 0600,1600 [facility] Last Admin: 03/26/17 05:33 Dose: 1 gm Tamsulosin HCl (Flomax) 0.4 mg PO DAILY [facility] Last Admin: 03/26/17 09:13 Dose: 0.4 mg Tiotropium [place] (Spiriva) 18 mcg IH DAILY [facility] Last Admin: 03/26/17 09:13 Dose: 18 mcg Tramadol HCl (Ultram) 50 mg PO Q8H PRN PRN Reason: Pain, moderate (4-7) Last Admin: 03/25/17 22:16 Dose: 50 mg - Labs Labs: 03/25/17 06:20 03/25/17 06:20 PT 10.3 SECONDS (9.4-12.5) 03/22/17 16:05 INR 0.91 (0.93-1.08) L 03/22/17 16:05 APTT 31.6 Seconds (25.1-36.5) 03/22/17 16:05 - Constitutional Appears: No Acute Distress - Eye Exam Eye Exam: Normal appearance. absent: Scleral icterus - ENT Exam ENT Exam: Mucous Membranes Moist - Neck Exam Neck Exam: Normal Inspection - Respiratory Exam Respiratory Exam: Decreased Breath Sounds, Rhonchi, NORMAL BREATHING PATTERN. absent: Wheezes, Respiratory Distress - Cardiovascular Exam Cardiovascular Exam: +S1, +S2 - GI/Abdominal Exam GI & Abdominal Exam: Soft, Normal Bowel Sounds. absent: Guarding, Tenderness, Organomegaly, Rebound - Neurological Exam Neurological Exam: Alert, Awake, Oriented x3 Assessment and Plan - Assessment and Plan (Free Text) Assessment: Assessment: End-stage chronic obstructive pulmonary disease Esophageal cancer with stricture Fever Status post recent treatment for pneumonia and cavitary lesion Plan: Continue pured diet Aspiration precaution Patient is high risk for any endoscopic intervention, may require intubation and may have difficulty weaning off at the present time continue PPI On Carafate On IV antibiotics As per ID, pulmonary, oncology Seen and discussed with Dr. Guy. <Maribell Gardner V - Last Filed: 03/26/17 20:23> Objective - Vital Signs/Intake and Output Vital Signs (last 24 hours): Temp Pulse Resp BP Pulse Ox 97.4 F L 102 H 19 121/71 98 03/26/17 06:00 03/26/17 18:00 03/26/17 06:00 03/26/17 06:00 03/26/17 06:00 - Medications Medications: Current Medications Acetaminophen (Tylenol 325mg Tab) 650 mg PO Q6H PRN PRN Reason: Fever >100.4 F Acetylcysteine (Acetylcysteine 20%) 4 ml IH [id number] [facility] Last Admin: 03/26/17 20:07 Dose: 4 ml Alprazolam (Xanax) 0.25 mg PO Q12 PRN; Protocol PRN Reason: Anxiety Stop: 03/29/17 22:01 Last Admin: 03/26/17 14:42 Dose: 0.25 mg Aspirin (Ecotrin) 81 mg PO DAILY [facility] Last Admin: 03/26/17 09:13 Dose: 81 mg Benzonatate (Tessalon Perles) 200 mg PO TID [facility] Last Admin: 03/26/17 18:23 Dose: 200 mg Diazepam (Valium) 5 mg PO HS PRN; Protocol PRN Reason: Insomnia Last Admin: 03/23/17 01:52 Dose: 5 mg Enoxaparin Sodium (Lovenox) 40 mg SC DAILY [facility] PRN Reason: Protocol Last Admin: 03/26/17 09:12 Dose: 40 mg Escitalopram Oxalate (Lexapro) 5 mg PO DAILY [facility] Last Admin: 03/26/17 09:13 Dose: 5 mg Guaifenesin (Mucinex La) 600 mg PO BID [facility] Last Admin: 03/26/17 18:23 Dose: 600 mg Doxycycline Hyclate 100 mg/ (Sodium Chloride) 100 mls @ 100 mls/hr IVPB Q12 [facility] PRN Reason: Protocol Last Admin: 03/26/17 09:11 Dose: 100 mls/hr Meropenem (Merrem Iv 1 Gm Premix) 50 mls @ 100 mls/hr IVPB Q8 [facility] Last Admin: 03/26/17 14:36 Dose: 100 mls/hr Levalbuterol HCl (Xopenex) 0.63 mg IH [id number] PRN PRN Reason: Shortness of Breath Last Admin: 03/26/17 20:07 Dose: 0.63 mg Loratadine (Claritin) 10 mg PO DAILY [facility] Last Admin: 03/26/17 09:13 Dose: 10 mg Megestrol Acetate (Megace) 400 mg PO DAILY [facility] Last Admin: 03/26/17 09:13 Dose: 400 mg Methylprednisolone (Solu-Medrol) 40 mg IVP Q12 [facility] Last Admin: 03/26/17 09:13 Dose: 40 mg Montelukast Sodium (Singulair) 10 mg PO HS [facility] Last Admin: 03/25/17 21:54 Dose: 10 mg Non-Formulary Medication (Quinine Sulfate) 324 mg PO HS [facility] Last Admin: 03/24/17 21:38 Dose: Not Given Nystatin (Nystatin Oral Susp) 5 ml PO QID [facility] Last Admin: 03/26/17 18:23 Dose: 5 ml Pantoprazole Sodium (Protonix Ec Tab) 40 mg PO 0600 [facility] Last Admin: 03/26/17 05:33 Dose: 40 mg Sodium Chloride ([place] Nasal [place]) 0 ml NS Q4 [facility] Sucralfate (Carafate Oral Susp) 1 gm PO 0600,1600 [facility] Last Admin: 03/26/17 16:09 Dose: 1 gm Tamsulosin HCl (Flomax) 0.4 mg PO DAILY [facility] Last Admin: 03/26/17 09:13 Dose: 0.4 mg Tiotropium [place] (Spiriva) 18 mcg IH DAILY [facility] Last Admin: 03/26/17 09:13 Dose: 18 mcg Tramadol HCl (Ultram) 50 mg PO Q8H PRN PRN Reason: Pain, moderate (4-7) Last Admin: 03/25/17 22:16 Dose: 50 mg - Labs Labs: 03/25/17 06:20 03/25/17 06:20 PT 10.3 SECONDS (9.4-12.5) 03/22/17 16:05 INR 0.91 (0.93-1.08) L 03/22/17 16:05 APTT 31.6 Seconds (25.1-36.5) 03/22/17 16:05 Attending/Attestation - Attestation I have personally seen and examined this patient.: Yes I have fully participated in the care of the patient.: Yes I have reviewed all pertinent clinical information, including history, physical exam and plan: Yes Notes (Text): This is an addendum to GI progress report dictated by Ceci Bhardwaj APN.The patient was seen and examined earlier. Medical records, lab studies, imagings were reviewed. Last 24 hours events reviewed. Agreed with the above treatment plan as outlined in Ceci Bhardwaj APN's notes the with the addition of the following tolerating pured diet Abdomen soft no tenderness Continue antibiotics as per ID and pulmonary follow-up High risk for endoscopy evaluation will discuss with Dr. Ferreira and also with Dr Srivastava 03/26/17 20:22
--- NOTE | 2017-03-26 14:24 | CP.PCM.PN ---
Subjective - Date & Time of Evaluation Date of Evaluation: 03/26/17 Time of Evaluation: 10:00 - Subjective Subjective: Still with SOB but a little less, cough is a little better, no fevers overnight. Objective - Vital Signs/Intake and Output Vital Signs (last 24 hours): Temp Pulse Resp BP Pulse Ox 97.4 F L 81 19 121/71 98 03/26/17 06:00 03/26/17 06:00 03/26/17 06:00 03/26/17 06:00 03/26/17 06:00 - Medications Medications: Current Medications Acetaminophen (Tylenol 325mg Tab) 650 mg PO Q6H PRN PRN Reason: Fever >100.4 F Acetylcysteine (Acetylcysteine 20%) 4 ml IH [id number] [facility] Last Admin: 03/26/17 07:47 Dose: Not Given Alprazolam (Xanax) 0.25 mg PO Q12 PRN; Protocol PRN Reason: Anxiety Stop: 03/29/17 22:01 Last Admin: 03/25/17 22:16 Dose: 0.25 mg Aspirin (Ecotrin) 81 mg PO DAILY [facility] Last Admin: 03/26/17 09:13 Dose: 81 mg Benzonatate (Tessalon Perles) 200 mg PO TID [facility] Last Admin: 03/26/17 09:12 Dose: 200 mg Diazepam (Valium) 5 mg PO HS PRN; Protocol PRN Reason: Insomnia Last Admin: 03/23/17 01:52 Dose: 5 mg Enoxaparin Sodium (Lovenox) 40 mg SC DAILY [facility] PRN Reason: Protocol Last Admin: 03/26/17 09:12 Dose: 40 mg Escitalopram Oxalate (Lexapro) 5 mg PO DAILY [facility] Last Admin: 03/26/17 09:13 Dose: 5 mg Guaifenesin (Mucinex La) 600 mg PO BID [facility] Last Admin: 03/26/17 09:13 Dose: 600 mg Doxycycline Hyclate 100 mg/ (Sodium Chloride) 100 mls @ 100 mls/hr IVPB Q12 [facility] PRN Reason: Protocol Last Admin: 03/26/17 09:11 Dose: 100 mls/hr Meropenem (Merrem Iv 1 Gm Premix) 50 mls @ 100 mls/hr IVPB Q8 [facility] Last Admin: 03/26/17 05:33 Dose: 100 mls/hr Levalbuterol HCl (Xopenex) 0.63 mg IH [id number] PRN PRN Reason: Shortness of Breath Last Admin: 03/26/17 06:20 Dose: 0.63 mg Loratadine (Claritin) 10 mg PO DAILY [facility] Last Admin: 03/26/17 09:13 Dose: 10 mg Megestrol Acetate (Megace) 400 mg PO DAILY [facility] Last Admin: 03/26/17 09:13 Dose: 400 mg Methylprednisolone (Solu-Medrol) 40 mg IVP Q12 [facility] Last Admin: 03/26/17 09:13 Dose: 40 mg Montelukast Sodium (Singulair) 10 mg PO HS [facility] Last Admin: 03/25/17 21:54 Dose: 10 mg Non-Formulary Medication (Quinine Sulfate) 324 mg PO HS [facility] Last Admin: 03/24/17 21:38 Dose: Not Given Nystatin (Nystatin Oral Susp) 5 ml PO QID [facility] Last Admin: 03/26/17 09:13 Dose: 5 ml Pantoprazole Sodium (Protonix Ec Tab) 40 mg PO 0600 [facility] Last Admin: 03/26/17 05:33 Dose: 40 mg Sucralfate (Carafate Oral Susp) 1 gm PO 0600,1600 [facility] Last Admin: 03/26/17 05:33 Dose: 1 gm Tamsulosin HCl (Flomax) 0.4 mg PO DAILY [facility] Last Admin: 03/26/17 09:13 Dose: 0.4 mg Tiotropium [place] (Spiriva) 18 mcg IH DAILY [facility] Last Admin: 03/26/17 09:13 Dose: 18 mcg Tramadol HCl (Ultram) 50 mg PO Q8H PRN PRN Reason: Pain, moderate (4-7) Last Admin: 03/25/17 22:16 Dose: 50 mg - Labs Labs: 03/25/17 06:20 03/25/17 06:20 PT 10.3 SECONDS (9.4-12.5) 03/22/17 16:05 INR 0.91 (0.93-1.08) L 03/22/17 16:05 APTT 31.6 Seconds (25.1-36.5) 03/22/17 16:05 - Constitutional Appears: Cachectic, Chronically Ill - Head Exam Head Exam: NORMAL INSPECTION - ENT Exam ENT Exam: Mucous Membranes Moist - Neck Exam Neck Exam: absent: Meningismus - Respiratory Exam Respiratory Exam: Decreased Breath Sounds - Cardiovascular Exam Cardiovascular Exam: +S1, +S2 - GI/Abdominal Exam GI & Abdominal Exam: Soft. absent: Tenderness Assessment and Plan - Assessment and Plan (Free Text) Plan: Assessment consider sepsis due to acute bronchitis in a patient with persistent right upper lobe cavitary lesion history of severe sepsis with respiratory failure from lung cavitary lesion in the right upper lobe - lung pyogenic abscess with Pseudomonas - no evidence of TB; S/P treatment with 6 weeks of antibiotics in 2017 end-stage COPD with history of heavy smoking esophageal cancer CAD basal cell CA S/P appendectomy Plan continue Doxcycline and Merrem day 4; cultures have been negative; CXR did not show pneumonia but showed decreased size of right upper lobe cavitary lesion will discuss with Dr. Srivastava overall prognosis is poor
[2017-03-26] MEDS: QUININE SULFATE 324 MG PO SCH (22:00)
--- NOTE | 2017-03-27 00:52 | PN ---
DATE: 03/26/2017 REFERRING PHYSICIAN: Abhijeet Vigil MD SUBJECTIVE: He is out of bed to chair. Night was unremarkable. Tolerated BiPAP well. Complaining of dry mouth. Also dryness in the nose, but he thinks is better. No nausea, no vomiting, or diarrhea. No leg pain or leg swelling. Also complaining of some issue with swallowing. OBJECTIVE: GENERAL: In no acute distress. VITAL SIGNS: Temperature is 98, heart rate is 101, respiratory rate is 20, blood pressure is 104/68, and pulse ox is 98% on nasal cannula. HEENT: Dry mucous membranes. No ulcer or thrush. NECK: Supple. No JVD. LUNGS: Has few scattered rhonchi. HEART: S1 and S2. ABDOMEN: Soft and nontender. No organomegaly. EXTREMITIES: There is no edema. NEUROLOGIC: Awake, alert, follow simple commands. MEDICATIONS: He is on Mucomyst 20% inhaled q. 6 hours, Carafate 1 g twice a day, Claritin 10 mg daily, doxycycline 100 mg twice a day, Ecotrin 81 mg daily, Flomax 0.4 mg daily, Lexapro 5 mg daily, Lovenox 40 mg daily, Megace 400 mg daily, meropenem 1 g IV q. 8 hours, Mucinex LA 600 mg twice a day, nystatin oral 5 mL q.i.d., nasal saline two sprays q. 4 hours p.r.n., Protonix 40 mg daily, getting quinine 324 mg at bedtime, Singulair 10 mg daily, Solu-Medrol 40 mg q. 12 hours, Spiriva one capsule inhaled daily, Tessalon Perles 200 mg 3 times a day, Tylenol p.r.n., Ultram 50 mg q. 8 hours p.r.n., Valium 5 mg at bedtime p.r.n., Xanax 0.25 mg q. 12 hours p.r.n., Xopenex 0.63, q. 6 hours p.r.n. LABORATORY DATA: Reviewed. No new lab is available other than procalcitonin is 6.70. IMPRESSION AND PLAN: Exacerbation of chronic obstructive lung disease, right upper lobe cavitary mass, esophageal cancer, may have sleep apnea syndrome, claustrophobic, may have esophageal candidiasis. has elevated procalcitonin suggesting of some lung pathology, may be have some pneumonia along with cavitary lesion. I spoke to the patient's at bedside. All the questions answered. May add humidification to the CPAP machine tonight. We will discontinue Mucomyst. Continue Mucinex DM. Decrease Solu-Medrol. Antibiotics as per Infectious Disease. Thank you and we will follow with you. Jesika Srivastava MD
[2017-03-27] MEDS: Meropenem IV 1 gm in NS 50 ML IVPB SCH ×3 (05:39→21:49)
[2017-03-27] MEDS: Pantoprazole 40 mg EC Tab PO SCH (05:41)
[2017-03-27] MEDS: Sucralfate 1 gm/10 ml Oral Susp UD PO SCH ×2 (05:41→16:25)
[2017-03-27] MEDS: Levalbuterol 0.63 MG/3 ML Inhal Soln UD IH PRN ×3 (08:49→20:45)
[2017-03-27] MEDS: Tiotropium 18 mcg Cap For Inhalation IH SCH (09:48)
[2017-03-27] MEDS: Enoxaparin 40 mg Syringe SC SCH (09:52)
[2017-03-27] MEDS: Megestrol Acetate 40 mg/ml Cup PO SCH (09:52)
[2017-03-27] MEDS: MethylPREDNISolone 40 mg Vial IVP SCH ×2 (09:53→21:49)
[2017-03-27] MEDS: guaiFENesin 600 mg ER Tab PO SCH ×2 (09:53→17:25)
--- NOTE | 2017-03-27 14:45 | RAD ---
HISTORY: Shortness of breath. Portable study 14:20. COMPARISON: 03/22/2017. FINDINGS: LUNGS: Thin walled cavity right upper lobe. This is unchanged compared to the prior study. PLEURA: No significant pleural effusion identified, no pneumothorax apparent. CARDIOVASCULAR: No radiographic findings to suggest acute or significant cardiovascular disease. OSSEOUS STRUCTURES: No significant abnormalities. VISUALIZED UPPER ABDOMEN: Normal. OTHER FINDINGS: None. IMPRESSION: No active pulmonary disease. Stable thin-walled cavity right upper lobe.
[2017-03-27] MEDS: Benzocaine/Menthol (Cepacol) Lozenge MT PRN ×2 (16:25→23:29)
--- NOTE | 2017-03-27 16:57 | CP.PCM.PN ---
Subjective - Date & Time of Evaluation Date of Evaluation: 03/27/17 Time of Evaluation: 10:15 - Subjective Subjective: Comfortable in bed, still with cough and SOB but a little less, no fevers. Objective - Vital Signs/Intake and Output Vital Signs (last 24 hours): Temp Pulse Resp BP Pulse Ox 97.5 F L 77 18 114/64 97 03/27/17 06:00 03/27/17 06:00 03/27/17 06:00 03/27/17 06:00 03/27/17 06:00 Intake and Output: 03/27/17 03/27/17 06:59 18:59 Intake Total 100 Output Total 500 Balance -400 - Medications Medications: Current Medications Acetaminophen (Tylenol 325mg Tab) 650 mg PO Q6H PRN PRN Reason: Fever >100.4 F Alprazolam (Xanax) 0.25 mg PO Q12 PRN; Protocol PRN Reason: Anxiety Stop: 03/29/17 22:01 Last Admin: 03/26/17 14:42 Dose: 0.25 mg Aspirin (Ecotrin) 81 mg PO DAILY [facility] Last Admin: 03/27/17 09:53 Dose: 81 mg Benzonatate (Tessalon Perles) 200 mg PO TID [facility] Last Admin: 03/27/17 09:52 Dose: 200 mg Diazepam (Valium) 5 mg PO HS PRN; Protocol PRN Reason: Insomnia Last Admin: 03/26/17 22:59 Dose: 5 mg Enoxaparin Sodium (Lovenox) 40 mg SC DAILY [facility] PRN Reason: Protocol Last Admin: 03/27/17 09:52 Dose: 40 mg Escitalopram Oxalate (Lexapro) 5 mg PO DAILY [facility] Last Admin: 03/27/17 09:53 Dose: 5 mg Fluconazole (Diflucan) 200 mg PO DAILY [facility] PRN Reason: Protocol Last Admin: 03/27/17 09:53 Dose: 200 mg Guaifenesin (Mucinex La) 600 mg PO BID [facility] Last Admin: 03/27/17 09:53 Dose: 600 mg Doxycycline Hyclate 100 mg/ (Sodium Chloride) 100 mls @ 100 mls/hr IVPB Q12 [facility] PRN Reason: Protocol Last Admin: 03/27/17 09:47 Dose: 100 mls/hr Meropenem (Merrem Iv 1 Gm Premix) 50 mls @ 100 mls/hr IVPB Q8 [facility] Last Admin: 03/27/17 05:39 Dose: 100 mls/hr Levalbuterol HCl (Xopenex) 0.63 mg IH [id number] PRN PRN Reason: Shortness of Breath Last Admin: 03/27/17 08:49 Dose: 0.63 mg Loratadine (Claritin) 10 mg PO DAILY [facility] Last Admin: 03/27/17 09:53 Dose: 10 mg Megestrol Acetate (Megace) 400 mg PO DAILY [facility] Last Admin: 03/27/17 09:52 Dose: 400 mg Methylprednisolone (Solu-Medrol) 20 mg IVP Q12 [facility] Last Admin: 03/27/17 09:53 Dose: 20 mg Montelukast Sodium (Singulair) 10 mg PO HS [facility] Last Admin: 03/26/17 21:07 Dose: 10 mg Non-Formulary Medication (Quinine Sulfate) 324 mg PO HS [facility] Last Admin: 03/26/17 22:00 Dose: Not Given Pantoprazole Sodium (Protonix Ec Tab) 40 mg PO 0600 [facility] Last Admin: 03/27/17 05:41 Dose: 40 mg Sodium Chloride (Miner Nasal [place]) 0 ml NS Q4 [facility] Last Admin: 03/27/17 08:12 Dose: 2 spray Sucralfate (Carafate Oral Susp) 1 gm PO 0600,1600 [facility] Last Admin: 03/27/17 05:41 Dose: 1 gm Tamsulosin HCl (Flomax) 0.4 mg PO DAILY [facility] Last Admin: 03/27/17 09:53 Dose: 0.4 mg Tiotropium [place] (Spiriva) 18 mcg IH DAILY [facility] Last Admin: 03/27/17 09:48 Dose: 18 mcg Tramadol HCl (Ultram) 50 mg PO Q8H PRN PRN Reason: Pain, moderate (4-7) Last Admin: 03/26/17 21:07 Dose: 50 mg - Labs Labs: 03/25/17 06:20 03/25/17 06:20 PT 10.3 SECONDS (9.4-12.5) 03/22/17 16:05 INR 0.91 (0.93-1.08) L 03/22/17 16:05 APTT 31.6 Seconds (25.1-36.5) 03/22/17 16:05 - Constitutional Appears: Cachectic, Chronically Ill - Head Exam Head Exam: NORMAL INSPECTION - ENT Exam ENT Exam: Mucous Membranes Moist - Neck Exam Neck Exam: absent: Meningismus - Respiratory Exam Respiratory Exam: Decreased Breath Sounds - Cardiovascular Exam Cardiovascular Exam: +S1, +S2 - GI/Abdominal Exam GI & Abdominal Exam: Soft. absent: Tenderness Assessment and Plan - Assessment and Plan (Free Text) Plan: Assessment consider sepsis due to acute bronchitis in a patient with persistent right upper lobe cavitary lesion history of severe sepsis with respiratory failure from lung cavitary lesion in the right upper lobe - lung pyogenic abscess with Pseudomonas - no evidence of TB; S/P treatment with 6 weeks of antibiotics in 2017 end-stage COPD with history of heavy smoking esophageal cancer CAD basal cell CA S/P appendectomy Plan continue Doxcycline and Merrem day 5; cultures have been negative; CXR did not show pneumonia but showed decreased size of right upper lobe cavitary lesion noted Dr. Srivastava's recommendations overall prognosis is poor
--- NOTE | 2017-03-27 18:38 | CP.PCM.PN ---
<Ceci Bhardwaj - Last Filed: 03/27/17 18:38> Subjective - Date & Time of Evaluation Date of Evaluation: 03/27/17 Time of Evaluation: 11:30 - Subjective Subjective: Seen and examined at the bedside earlier today, chart reviewed. No acute overnight events reported. Patient continues to tolerate oral intake with no complaints of dysphagia. Having formed BMs with no reports of melena or bright red blood per rectum. No respiratory distress noted. Objective - Vital Signs/Intake and Output Vital Signs (last 24 hours): Temp Pulse Resp BP Pulse Ox 97.7 F 112 H 20 114/65 97 03/27/17 12:00 03/27/17 18:00 03/27/17 12:00 03/27/17 12:00 03/27/17 09:00 Intake and Output: 03/27/17 03/27/17 06:59 18:59 Intake Total 100 600 Output Total 500 Balance -400 600 - Medications Medications: Current Medications Acetaminophen (Tylenol 325mg Tab) 650 mg PO Q6H PRN PRN Reason: Fever >100.4 F Alprazolam (Xanax) 0.25 mg PO Q12 PRN; Protocol PRN Reason: Anxiety Stop: 03/29/17 22:01 Last Admin: 03/26/17 14:42 Dose: 0.25 mg Aspirin (Ecotrin) 81 mg PO DAILY [facility] Last Admin: 03/27/17 09:53 Dose: 81 mg Benzocaine/Menthol (Cepacol Sore Throat) 1 carlos MT Q3H PRN PRN Reason: Sore Throat Last Admin: 03/27/17 16:25 Dose: 1 carlos Benzonatate (Tessalon Perles) 200 mg PO TID [facility] Last Admin: 03/27/17 17:25 Dose: 200 mg Diazepam (Valium) 5 mg PO HS PRN; Protocol PRN Reason: Insomnia Last Admin: 03/26/17 22:59 Dose: 5 mg Doxycycline Hyclate (Doryx) 100 mg PO Q12 [facility] Enoxaparin Sodium (Lovenox) 40 mg SC DAILY [facility] PRN Reason: Protocol Last Admin: 03/27/17 09:52 Dose: 40 mg Escitalopram Oxalate (Lexapro) 5 mg PO DAILY [facility] Last Admin: 03/27/17 09:53 Dose: 5 mg Fluconazole (Diflucan) 200 mg PO DAILY [facility] PRN Reason: Protocol Last Admin: 03/27/17 09:53 Dose: 200 mg Guaifenesin (Mucinex La) 600 mg PO BID [facility] Last Admin: 03/27/17 17:25 Dose: 600 mg Meropenem (Merrem Iv 1 Gm Premix) 50 mls @ 100 mls/hr IVPB Q8 [facility] Last Admin: 03/27/17 14:42 Dose: 100 mls/hr Levalbuterol HCl (Xopenex) 0.63 mg IH [id number] PRN PRN Reason: Shortness of Breath Last Admin: 03/27/17 14:16 Dose: 0.63 mg Loratadine (Claritin) 10 mg PO DAILY [facility] Last Admin: 03/27/17 09:53 Dose: 10 mg Megestrol Acetate (Megace) 400 mg PO DAILY [facility] Last Admin: 03/27/17 09:52 Dose: 400 mg Methylprednisolone (Solu-Medrol) 20 mg IVP Q12 [facility] Last Admin: 03/27/17 09:53 Dose: 20 mg Montelukast Sodium (Singulair) 10 mg PO HS [facility] Last Admin: 03/26/17 21:07 Dose: 10 mg Non-Formulary Medication (Quinine Sulfate) 324 mg PO HS [facility] Last Admin: 03/26/17 22:00 Dose: Not Given Pantoprazole Sodium (Protonix Ec Tab) 40 mg PO 0600 [facility] Last Admin: 03/27/17 05:41 Dose: 40 mg Sodium Chloride ([place] Nasal [place]) 0 ml NS Q4 [facility] Last Admin: 03/27/17 16:25 Dose: 2 spray Sucralfate (Carafate Oral Susp) 1 gm PO 0600,1600 [facility] Last Admin: 03/27/17 16:25 Dose: 1 gm Tamsulosin HCl (Flomax) 0.4 mg PO DAILY [facility] Last Admin: 03/27/17 09:53 Dose: 0.4 mg Tiotropium [place] (Spiriva) 18 mcg IH DAILY [facility] Last Admin: 03/27/17 09:48 Dose: 18 mcg Tramadol HCl (Ultram) 50 mg PO Q8H PRN PRN Reason: Pain, moderate (4-7) Last Admin: 03/26/17 21:07 Dose: 50 mg - Labs Labs: 03/25/17 06:20 03/25/17 06:20 PT 10.3 SECONDS (9.4-12.5) 03/22/17 16:05 INR 0.91 (0.93-1.08) L 03/22/17 16:05 APTT 31.6 Seconds (25.1-36.5) 03/22/17 16:05 - Constitutional Appears: No Acute Distress - Eye Exam Eye Exam: Normal appearance. absent: Scleral icterus - ENT Exam ENT Exam: Mucous Membranes Moist - Respiratory Exam Respiratory Exam: NORMAL BREATHING PATTERN. absent: Respiratory Distress - Cardiovascular Exam Cardiovascular Exam: +S1, +S2 - GI/Abdominal Exam GI & Abdominal Exam: Soft, Normal Bowel Sounds. absent: Guarding, Tenderness, Rebound - Extremities Exam Extremities Exam: absent: Calf Tenderness - Neurological Exam Neurological Exam: Alert, Awake, Oriented x3 Assessment and Plan - Assessment and Plan (Free Text) Assessment: Assessment: End-stage chronic obstructive pulmonary disease Esophageal cancer with stricture Fever Status post recent treatment for pneumonia and cavitary lesion Plan: Continue pured diet Aspiration precaution Patient is high risk for any endoscopic intervention, may require intubation and may have difficulty weaning off at the present time continue PPI On Carafate On IV antibiotics As per ID, pulmonary, oncology Seen and discussed with Dr. Gardner. <Maribell Gardner V - Last Filed: 03/28/17 01:01> Objective - Vital Signs/Intake and Output Vital Signs (last 24 hours): Temp Pulse Resp BP Pulse Ox 97.8 F 112 H 20 117/57 L 94 L 03/27/17 18:00 03/27/17 23:42 03/27/17 18:00 03/27/17 18:00 03/27/17 18:00 Intake and Output: 03/27/17 03/28/17 18:59 06:59 Intake Total 600 540 Output Total 500 Balance 600 40 - Medications Medications: Current Medications Acetaminophen (Tylenol 325mg Tab) 650 mg PO Q6H PRN PRN Reason: Fever >100.4 F Alprazolam (Xanax) 0.25 mg PO Q12 PRN; Protocol PRN Reason: Anxiety Stop: 03/29/17 22:01 Last Admin: 03/27/17 21:57 Dose: 0.25 mg Aspirin (Ecotrin) 81 mg PO DAILY [facility] Last Admin: 03/27/17 09:53 Dose: 81 mg Benzocaine/Menthol (Cepacol Sore Throat) 1 carlos MT Q3H PRN PRN Reason: Sore Throat Last Admin: 03/27/17 23:29 Dose: 1 carlos Benzonatate (Tessalon Perles) 200 mg PO TID [facility] Last Admin: 03/27/17 17:25 Dose: 200 mg Diazepam (Valium) 5 mg PO HS PRN; Protocol PRN Reason: Insomnia Last Admin: 03/26/17 22:59 Dose: 5 mg Doxycycline Hyclate (Doryx) 100 mg PO Q12 [facility] Last Admin: 03/27/17 23:26 Dose: 100 mg Enoxaparin Sodium (Lovenox) 40 mg SC DAILY [facility] PRN Reason: Protocol Last Admin: 03/27/17 09:52 Dose: 40 mg Escitalopram Oxalate (Lexapro) 5 mg PO DAILY [facility] Last Admin: 03/27/17 09:53 Dose: 5 mg Fluconazole (Diflucan) 200 mg PO DAILY [facility] PRN Reason: Protocol Last Admin: 03/27/17 09:53 Dose: 200 mg Guaifenesin (Mucinex La) 600 mg PO BID [facility] Last Admin: 03/27/17 17:25 Dose: 600 mg Meropenem (Merrem Iv 1 Gm Premix) 50 mls @ 100 mls/hr IVPB Q8 [facility] Last Admin: 03/27/17 21:49 Dose: 100 mls/hr Levalbuterol HCl (Xopenex) 0.63 mg IH [id number] PRN PRN Reason: Shortness of Breath Last Admin: 03/27/17 20:45 Dose: 0.63 mg Loratadine (Claritin) 10 mg PO DAILY [facility] Last Admin: 03/27/17 09:53 Dose: 10 mg Megestrol Acetate (Megace) 400 mg PO DAILY [facility] Last Admin: 03/27/17 09:52 Dose: 400 mg Methylprednisolone (Solu-Medrol) 20 mg IVP Q12 [facility] Last Admin: 03/27/17 21:49 Dose: 20 mg Montelukast Sodium (Singulair) 10 mg PO HS [facility] Last Admin: 03/27/17 21:49 Dose: 10 mg Non-Formulary Medication (Quinine Sulfate) 324 mg PO HS [facility] Last Admin: 03/27/17 21:50 Dose: Not Given Pantoprazole Sodium (Protonix Ec Tab) 40 mg PO 0600 [facility] Last Admin: 03/27/17 05:41 Dose: 40 mg Sodium Chloride ([place] Nasal [place]) 0 ml NS Q4 [facility] Last Admin: 03/27/17 21:46 Dose: Not Given Sucralfate (Carafate Oral Susp) 1 gm PO 0600,1600 [facility] Last Admin: 03/27/17 16:25 Dose: 1 gm Tamsulosin HCl (Flomax) 0.4 mg PO DAILY [facility] Last Admin: 03/27/17 09:53 Dose: 0.4 mg Tiotropium [place] (Spiriva) 18 mcg IH DAILY [facility] Last Admin: 03/27/17 09:48 Dose: 18 mcg Tramadol HCl (Ultram) 50 mg PO Q8H PRN PRN Reason: Pain, moderate (4-7) Last Admin: 03/27/17 21:57 Dose: 50 mg - Labs Labs: 03/25/17 06:20 03/25/17 06:20 PT 10.3 SECONDS (9.4-12.5) 03/22/17 16:05 INR 0.91 (0.93-1.08) L 03/22/17 16:05 APTT 31.6 Seconds (25.1-36.5) 03/22/17 16:05 Attending/Attestation - Attestation I have personally seen and examined this patient.: Yes I have fully participated in the care of the patient.: Yes I have reviewed all pertinent clinical information, including history, physical exam and plan: Yes Notes (Text): This is an addendum to GI progress report dictated by Ceci Bhardwaj APN.The patient was seen and examined earlier. Medical records, lab studies, imagings were reviewed. Last 24 hours events reviewed. Agreed with the above treatment plan as outlined in Ceci Bhardwaj APN's notes the with the addition of the following Patient still complains of shortness of breath Abdomen soft no tenderness Tolerating the pure diet Denies any difficulty in swallowing patient was strictly advised to stick on to pure diet with thin liquids 03/28/17 01:00
[2017-03-27] MEDS: QUININE SULFATE 324 MG PO SCH (21:50)
--- NOTE | 2017-03-28 01:44 | PN ---
DATE: 03/27/2017 PULMONARY PROGRESS NOTE REFERRING PHYSICIAN: Abhijeet Vigil MD SUBJECTIVE: He is sitting side of the bed. Earlier events noted. Had a sudden onset of short of breath, responded well to rescue inhaler, presently feel okay. Still have a dry mouth. No nausea, no vomiting, no diarrhea. No leg pain or leg swelling. OBJECTIVE: GENERAL: In no acute distress. VITAL SIGNS: Temperature is 98, heart rate is 120, respiratory rate is 20, blood pressure 117/57, pulse ox 94% on nasal cannula. HEENT: Dry mucous membranes. NECK: Supple. No JVD. LUNGS: Has a prolong expiratory phase with some rhonchi. HEART: S1 and S2. ABDOMEN: Soft and nontender. No organomegaly. EXTREMITIES: There is no edema. NEUROLOGIC: Awake, alert and follow simple commands. MEDICATIONS: He is on Carafate 1 g twice a day, Cepacol lozenges q. 3 hour p.r.n., Claritin 10 mg daily, Diflucan 200 mg daily, doxycycline 100 mg twice a day, Ecotrin 81 mg daily, Flomax 0.4 mg daily, Lexapro 5 mg daily, Lovenox 40 mg daily, Megace 400 mg daily, meropenem 1 g q. 8 hours, Mucinex LA 600 mg twice a day, nasal saline q. 4 hours, Protonix 40 mg daily, quinine sulfate 325 mg at bedtime., Singulair 10 mg daily, Solu-Medrol 20 mg q. 12 hours, Spiriva one capsule inhaled daily, Tessalon Perles q. 8 hours, Tylenol p.r.n., Ultram 50 mg q. 8 hours p.r.n., Valium 5 mg at bedtime. p.r.n., and Xanax 0.25 mg q. 12 hours. LABORATORY DATA: Reviewed. No new other lab is available. Microbiology: Blood culture have been negative. Chest x-ray shows no acute pulmonary disease, right upper lobe thin wall cavity still there. IMPRESSION AND PLAN: Exacerbation of chronic obstructive lung disease, may have a pneumonia, esophageal cancer, sleep apnea syndrome, may have esophageal candidiasis. Case discussed with nursing staff. Also spoke to respiratory therapist, treatment was given, felt much better. Continue taper dose of steroids, inhaled bronchodilators, antibiotics, gastric prophylaxis, deep venous thrombosis prophylaxis. Cepacol lozenges may help to sooth throat. Thank you and we will follow with you. Jesika Srivastava MD
[2017-03-28] MEDS: Meropenem IV 1 gm in NS 50 ML IVPB SCH ×3 (06:57→22:19)
[2017-03-28] MEDS: Sucralfate 1 gm/10 ml Oral Susp UD PO SCH ×2 (06:59→16:54)
[2017-03-28] MEDS: Pantoprazole 40 mg EC Tab PO SCH (06:59)
[2017-03-28 07:11] LABS: BASO # 0.01 K/mm3 (0.0-2.0); BASO % 0.1 % (0.0-3.0); GRAN # 7.93 (1.4-6.5); GRAN % 87.4 % (50.0-68.0); HEMOGLOBIN 10.1 g/dL (14.0-18.0); LYMPH # 0.6 (1.2-3.4); LYMPH % 6.3 % (22.0-35.0); MEAN CORPUSCULAR HEMOGLOBIN 27.2 pg (25.0-35.0); MEAN CORPUSCULAR HGB CONC 31.7 g/dl (31.0-37.0); MEAN PLATELET VOLUME 9.2 fl (7.0-11.0); MONO # 0.6 (0.1-0.6); MONO % 6.2 % (1.0-6.0); RBC 3.71 10^6/uL (3.5-6.1); RED CELL DISTRIBUTION WIDTH 16.4 % (11.5-14.5); WHITE BLOOD COUNT 9.1 10^3/ul (4.5-11.0)
[2017-03-28 07:31] LABS: ALB/GLOB RATIO 1.2 (1.1-1.8); ALBUMIN 3.1 g/dL (3.0-4.8); ALT/SGPT 25 U/L (7-56); AST/SGOT 19 U/L (17-59); BLOOD UREA NITROGEN 16 mg/dL (7-21); CALCIUM 9.8 mg/dL (8.4-10.5); GFR AFRICAN-AMERICAN > 60; GFR NON-AFRICAN AMERICAN > 60
--- NOTE | 2017-03-28 08:28 | PN ---
DATE: 03/27/2017 ONCOLOGY PROGRESS NOTE LOCATION: The patient is in room 378, bed 2. SUBJECTIVE: The patient is out of bed to the chair. Night was unremarkable, but he has been coughing up quite a lot this morning, with bringing up thick globulus yellow phlegm. The patient tolerated the BiPAP well last night, complaining of some dry mouth and dryness in his nose. No nausea, no vomiting, no diarrhea. No leg pain, no leg swelling. Complaining of some issues with swallowing. The patient's [place] was strucking to him, had to request treatment, spoke to the nurse and we got a stat Xopenex nebulizer treatment and sputum has been sent for cultures again. OBJECTIVE: VITAL SIGNS: Stable. T-max of 98.4, heart rate is 101, respirations 20, blood pressure 104/68, pulse ox is 96% on nasal cannula. HEENT: Reveals dry mucous membranes. No ulcer or thrush in the mouth noted. NECK: Supple. There is no adenopathy. No jugular venous distention noted. LUNGS: Reveal bilateral scattered rhonchi. HEART: Reveals S1 and S2 to be normal. No gallop or murmur is heard. Tachycardia is noted. ABDOMEN: Soft, nontender, scaphoid. Liver and spleen not palpable. No rebound, rigidity, or guarding is noted. EXTREMITIES: Reveal no cyanosis, clubbing, or edema. NEUROLOGIC: Reveal higher functions are normal. No focal deficits are noted. GENITOURINARY AND RECTAL: Deferred. There is no evidence of adenopathy in the neck, axilla, or groin. MEDICATIONS: The patient's medications reviewed. He is on Mucomyst 20% inhaled q. 6 hours, Carafate 1 gram twice a day, Claritin 10 mg p.o. daily, doxycycline 100 mg twice a day, Ecotrin 81 mg daily, Flomax 0.4 mg daily, Lexapro 5 mg daily, Lovenox 40 mg daily, Megace 400 mg daily, meropenem 1 gram IV q. 8 hours, Mucinex LA 600 mg twice a day, nystatin 5 mL q.i.d., normal saline two sprays q. 4 h. p.r.n., Protonix 40 mg daily, quinine sulfate 324 mg at bedtime, Singulair 10 mg daily, Solu-Medrol 40 mg q. 12 hours, Spiriva one capsule inhaled daily, Tessalon Perles 200 mg three times a day, Tylenol p.r.n., Ultram 50 mg q. 8 hours, Valium 5 mg at bedtime p.r.n., Xanax 0.25 mg p.o. q. 12 hours p.r.n., Xopenex 0.63 mg q. 6 h. p.r.n. LABORATORY DATA: Reviewed. Lab data from ago shows white count 16, hemoglobin 9.5, hematocrit 30, platelet count of 296,000. Again, electrolytes were basically within reasonable range. Procalcitonin was still elevated at 6.7. ASSESSMENT NOTES AND PLAN: In view of the increased coughing with thick phlegm, I spoke to Dr. Srivastava. A chest x-ray was ordered. We reviewed the chest x-ray, did not show any acute infiltrates; showed the thin wall cavity in the right upper lobe, which actually appears better. The patient is on IV antibiotics. We will continue to monitor the patient and send additional sputum for cultures. I spoke to Dr. Stephens as well, who is going to make his own recommendations. Dr. Srivastava is also going to review the chart and the patient; and make his own recommendations. Time spent with the patient about 60 minutes; correlating all the information, discussing with the patient, and also counseling him regarding the findings and what our final treatment plans are. Routine post-exam instructions have been given to the patient. Please make a note, more than 50% of the time was spent [id number] counseling the patient and going over the findings as far his current diagnoses, overall prognosis, and how we are progressing. María Ferreira MD
[2017-03-28] MEDS: Levalbuterol 0.63 MG/3 ML Inhal Soln UD IH PRN ×3 (08:40→20:17)
[2017-03-28] MEDS: Megestrol Acetate 40 mg/ml Cup PO SCH (10:02)
[2017-03-28] MEDS: MethylPREDNISolone 40 mg Vial IVP SCH ×2 (10:02→22:19)
[2017-03-28] MEDS: Enoxaparin 40 mg Syringe SC SCH (10:02)
[2017-03-28] MEDS: guaiFENesin 600 mg ER Tab PO SCH (10:03)
[2017-03-28] MEDS: Benzocaine/Menthol (Cepacol) Lozenge MT PRN ×3 (10:22→21:30)
[2017-03-28] MEDS: Tiotropium 18 mcg Cap For Inhalation IH SCH (14:43)
--- NOTE | 2017-03-28 16:46 | CP.PCM.PN ---
Subjective - Date & Time of Evaluation Date of Evaluation: 03/28/17 Time of Evaluation: 12:35 - Subjective Subjective: Breathing a little better today, no fevers overnight. Objective - Vital Signs/Intake and Output Vital Signs (last 24 hours): Temp Pulse Resp BP Pulse Ox 97.7 F 85 20 103/69 97 03/28/17 06:00 03/28/17 06:00 03/28/17 06:00 03/28/17 06:00 03/28/17 06:00 Intake and Output: 03/28/17 03/28/17 06:59 18:59 Intake Total 740 Output Total 500 Balance 240 - Medications Medications: Current Medications Acetaminophen (Tylenol 325mg Tab) 650 mg PO Q6H PRN PRN Reason: Fever >100.4 F Alprazolam (Xanax) 0.25 mg PO Q12 PRN; Protocol PRN Reason: Anxiety Stop: 03/29/17 22:01 Last Admin: 03/27/17 21:57 Dose: 0.25 mg Aspirin (Ecotrin) 81 mg PO DAILY [facility] Last Admin: 03/28/17 10:03 Dose: 81 mg Benzocaine/Menthol (Cepacol Sore Throat) 1 carlos MT Q3H PRN PRN Reason: Sore Throat Last Admin: 03/28/17 10:22 Dose: 1 [place] Benzonatate (Tessalon Perles) 200 mg PO TID [facility] Last Admin: 03/28/17 10:02 Dose: 200 mg Diazepam (Valium) 5 mg PO HS PRN; Protocol PRN Reason: Insomnia Last Admin: 03/26/17 22:59 Dose: 5 mg Doxycycline Hyclate (Doryx) 100 mg PO Q12 [facility] Last Admin: 03/28/17 10:02 Dose: 100 mg Enoxaparin Sodium (Lovenox) 40 mg SC DAILY [facility] PRN Reason: Protocol Last Admin: 03/28/17 10:02 Dose: 40 mg Escitalopram Oxalate (Lexapro) 5 mg PO DAILY [facility] Last Admin: 03/28/17 10:24 Dose: 5 mg Fluconazole (Diflucan) 200 mg PO DAILY [facility] PRN Reason: Protocol Last Admin: 03/28/17 10:03 Dose: 200 mg Guaifenesin (Mucinex La) 600 mg PO BID [facility] Last Admin: 03/28/17 10:03 Dose: 600 mg Meropenem (Merrem Iv 1 Gm Premix) 50 mls @ 100 mls/hr IVPB Q8 [facility] Last Admin: 03/28/17 06:57 Dose: 100 mls/hr Levalbuterol HCl (Xopenex) 0.63 mg IH [id number] PRN PRN Reason: Shortness of Breath Last Admin: 03/28/17 08:40 Dose: 0.63 mg Loratadine (Claritin) 10 mg PO DAILY [facility] Last Admin: 03/28/17 10:03 Dose: 10 mg Megestrol Acetate (Megace) 400 mg PO DAILY [facility] Last Admin: 03/28/17 10:02 Dose: 400 mg Methylprednisolone (Solu-Medrol) 20 mg IVP Q12 [facility] Last Admin: 03/28/17 10:02 Dose: 20 mg Montelukast Sodium (Singulair) 10 mg PO HS [facility] Last Admin: 03/27/17 21:49 Dose: 10 mg Non-Formulary Medication (Quinine Sulfate) 324 mg PO HS [facility] Last Admin: 03/27/17 21:50 Dose: Not Given Pantoprazole Sodium (Protonix Ec Tab) 40 mg PO 0600 [facility] Last Admin: 03/28/17 06:59 Dose: 40 mg Sodium Chloride ([place] Nasal [place]) 0 ml NS Q4 [facility] Last Admin: 03/28/17 10:22 Dose: Not Given Sucralfate (Carafate Oral Susp) 1 gm PO 0600,1600 [facility] Last Admin: 03/28/17 06:59 Dose: 1 gm Tamsulosin HCl (Flomax) 0.4 mg PO DAILY [facility] Last Admin: 03/28/17 10:03 Dose: 0.4 mg Tiotropium [place] (Spiriva) 18 mcg IH DAILY [facility] Last Admin: 03/27/17 09:48 Dose: 18 mcg Tramadol HCl (Ultram) 50 mg PO Q8H PRN PRN Reason: Pain, moderate (4-7) Last Admin: 03/27/17 21:57 Dose: 50 mg - Labs Labs: 03/28/17 06:30 03/28/17 06:30 PT 10.3 SECONDS (9.4-12.5) 03/22/17 16:05 INR 0.91 (0.93-1.08) L 03/22/17 16:05 APTT 31.6 Seconds (25.1-36.5) 03/22/17 16:05 - Constitutional Appears: Cachectic, Chronically Ill - Head Exam Head Exam: NORMAL INSPECTION - ENT Exam ENT Exam: Mucous Membranes Moist - Neck Exam Neck Exam: absent: Meningismus - Respiratory Exam Respiratory Exam: Decreased Breath Sounds - Cardiovascular Exam Cardiovascular Exam: +S1, +S2 - GI/Abdominal Exam GI & Abdominal Exam: Soft. absent: Tenderness Assessment and Plan - Assessment and Plan (Free Text) Plan: Assessment consider sepsis due to acute bronchitis in a patient with persistent right upper lobe cavitary lesion history of severe sepsis with respiratory failure from lung cavitary lesion in the right upper lobe - lung pyogenic abscess with Pseudomonas - no evidence of TB; S/P treatment with 6 weeks of antibiotics in 2017 end-stage COPD with history of heavy smoking esophageal cancer CAD basal cell CA S/P appendectomy Plan continue Doxcycline and Merrem day 6; cultures have been negative; CXR did not show pneumonia but showed decreased size of right upper lobe cavitary lesion noted Dr. Srivastava's recommendations overall prognosis is poor
--- NOTE | 2017-03-28 17:42 | CP.PCM.PN ---
Subjective - Date & Time of Evaluation Date of Evaluation: 03/28/17 Time of Evaluation: 10:35 - Subjective Subjective: Seen and examined at the bedside earlier today, chart reviewed. No acute distress or acute overnight events reported. Patient tolerating oral intake complaints of dysphagia. having formed bms, denies diarrhea. Objective - Vital Signs/Intake and Output Vital Signs (last 24 hours): Temp Pulse Resp BP Pulse Ox 97.9 F 116 H 20 134/75 97 03/28/17 12:00 03/28/17 12:00 03/28/17 12:00 03/28/17 12:00 03/28/17 06:00 Intake and Output: 03/28/17 03/28/17 06:59 18:59 Intake Total 740 Output Total 500 Balance 240 - Medications Medications: Current Medications Acetaminophen (Tylenol 325mg Tab) 650 mg PO Q6H PRN PRN Reason: Fever >100.4 F Last Admin: 03/28/17 16:54 Dose: 650 mg Alprazolam (Xanax) 0.25 mg PO Q12 PRN; Protocol PRN Reason: Anxiety Stop: 03/29/17 22:01 Last Admin: 03/27/17 21:57 Dose: 0.25 mg Aspirin (Ecotrin) 81 mg PO DAILY [facility] Last Admin: 03/28/17 10:03 Dose: 81 mg Benzocaine/Menthol (Cepacol Sore Throat) 1 carlos MT Q3H PRN PRN Reason: Sore Throat Last Admin: 03/28/17 14:40 Dose: 1 carlos Benzonatate (Tessalon Perles) 200 mg PO TID [facility] Last Admin: 03/28/17 14:40 Dose: 200 mg Diazepam (Valium) 5 mg PO HS PRN; Protocol PRN Reason: Insomnia Last Admin: 03/26/17 22:59 Dose: 5 mg Doxycycline Hyclate (Doryx) 100 mg PO Q12 [facility] Last Admin: 03/28/17 10:02 Dose: 100 mg Enoxaparin Sodium (Lovenox) 40 mg SC DAILY [facility] PRN Reason: Protocol Last Admin: 03/28/17 10:02 Dose: 40 mg Escitalopram Oxalate (Lexapro) 5 mg PO DAILY [facility] Last Admin: 03/28/17 10:24 Dose: 5 mg Fluconazole (Diflucan) 200 mg PO DAILY [facility] PRN Reason: Protocol Last Admin: 03/28/17 10:03 Dose: 200 mg Guaifenesin (Mucinex La) 600 mg PO BID [facility] Last Admin: 03/28/17 10:03 Dose: 600 mg Meropenem (Merrem Iv 1 Gm Premix) 50 mls @ 100 mls/hr IVPB Q8 [facility] Last Admin: 03/28/17 14:21 Dose: 100 mls/hr Levalbuterol HCl (Xopenex) 0.63 mg IH [id number] PRN PRN Reason: Shortness of Breath Last Admin: 03/28/17 13:56 Dose: 0.63 mg Loratadine (Claritin) 10 mg PO DAILY [facility] Last Admin: 03/28/17 10:03 Dose: 10 mg Megestrol Acetate (Megace) 400 mg PO DAILY [facility] Last Admin: 03/28/17 10:02 Dose: 400 mg Methylprednisolone (Solu-Medrol) 20 mg IVP Q12 [facility] Last Admin: 03/28/17 10:02 Dose: 20 mg Montelukast Sodium (Singulair) 10 mg PO HS [facility] Last Admin: 03/27/17 21:49 Dose: 10 mg Non-Formulary Medication (Quinine Sulfate) 324 mg PO HS [facility] Last Admin: 03/27/17 21:50 Dose: Not Given Pantoprazole Sodium (Protonix Ec Tab) 40 mg PO 0600 [facility] Last Admin: 03/28/17 06:59 Dose: 40 mg Sodium Chloride ([place] Nasal [place]) 0 ml NS Q4 [facility] Last Admin: 03/28/17 16:55 Dose: Not Given Sucralfate (Carafate Oral Susp) 1 gm PO 0600,1600 [facility] Last Admin: 03/28/17 16:54 Dose: 1 gm Tamsulosin HCl (Flomax) 0.4 mg PO DAILY [facility] Last Admin: 03/28/17 10:03 Dose: 0.4 mg Tiotropium [place] (Spiriva) 18 mcg IH DAILY [facility] Last Admin: 03/28/17 14:43 Dose: 18 mcg Tramadol HCl (Ultram) 50 mg PO Q8H PRN PRN Reason: Pain, moderate (4-7) Last Admin: 03/27/17 21:57 Dose: 50 mg - Labs Labs: 03/28/17 06:30 01/11/18 06:30 PT 10.3 SECONDS (9.4-12.5) 03/22/17 16:05 INR 0.91 (0.93-1.08) L 03/22/17 16:05 APTT 31.6 Seconds (25.1-36.5) 03/22/17 16:05 - Constitutional Appears: No Acute Distress - Eye Exam Eye Exam: Normal appearance. absent: Scleral icterus - ENT Exam ENT Exam: Mucous Membranes Moist - Respiratory Exam Respiratory Exam: NORMAL BREATHING PATTERN. absent: Respiratory Distress - Cardiovascular Exam Cardiovascular Exam: +S1, +S2 - GI/Abdominal Exam GI & Abdominal Exam: Soft, Normal Bowel Sounds. absent: Guarding, Tenderness, Organomegaly, Rebound - Extremities Exam Extremities Exam: absent: Calf Tenderness - Neurological Exam Neurological Exam: Alert, Awake, Oriented x3 Assessment and Plan - Assessment and Plan (Free Text) Assessment: Assessment: End-stage chronic obstructive pulmonary disease Esophageal cancer with stricture Fever Status post recent treatment for pneumonia and cavitary lesion Plan: Continue pured diet Aspiration precaution continue PPI On Carafate On IV antibiotics On Solu-Medrol As per ID, pulmonary, oncology Seen and discussed with Dr. Gardner.
[2017-03-28] MEDS: QUININE SULFATE 324 MG PO SCH (22:19)
--- NOTE | 2017-03-29 00:51 | PN ---
DATE: 03/28/2017 PULMONARY PROGRESS NOTE REFERRING PHYSICIAN: Dr. Abhijeet Vigil. SUBJECTIVE: He is sitting up in a chair. Night was unremarkable, tolerated BiPAP about 8-hour or so last night, did well with humidification with the BiPAP. Sore throat is improved. Dryness is improved. No nausea, no vomiting, no diarrhea. No leg pain, no leg swelling. OBJECTIVE: GENERAL: In no acute distress. VITAL SIGNS: Temperature is 98, heart rate is 100, respiratory rate is 20, blood pressure 108/63, pulse ox 97% on nasal cannula. HEENT: Moist mucous membrane. Crowded airway. NECK: Supple. No JVD. LUNGS: Has a prolonged expiratory phase with some wheezing. HEART: S1 and S2. ABDOMEN: Soft, nontender. No organomegaly. EXTREMITIES: There is no edema. NEUROLOGIC: Awake, alert, follow simple commands. MEDICATIONS: He is on Carafate 1 g twice a day, Cepacol lozenges q. 3 hour p.r.n., Claritin 10 mg daily, Diflucan 200 mg daily, doxycycline 100 mg twice a day, Ecotrin 81 mg daily, Flomax 0.4 mg daily, Lexapro 5 mg daily, Lovenox 40 mg daily, Megace 400 mg daily, meropenem 1 g IV q. 8 hour, Mucinex LA 600 mg twice a day, Protonix 40 mg daily, quinine 324 mg at bedtime, Singulair 10 mg daily, Solu-Medrol 20 mg q. 12 hours, Spiriva capsule inhaled daily, Tessalon Perles 200 mg three times a day, Tylenol p.r.n., Ultram 50 mg q. 8 hours p.r.n., Valium 5 mg at bedtime p.r.n., Xanax 0.25 mg q. 12 h. p.r.n., and Xopenex inhaled q. 6 hour. LABORATORY DATA: Shows hemoglobin 10.1, hematocrit 31.9, WBC 9.1, platelet is 287. Sodium 132, potassium 4.5, chloride 95, bicarbonate 35, BUN 16, creatinine 0.4, glucose 133, calcium 9.8, AST 19, ALT 25, alk phos is 45. Albumin is 2.1, procalcitonin 6.70. IMPRESSION AND PLAN: Exacerbation of chronic obstructive lung disease, may have pneumonia esophageal cancer, sleep apnea syndrome, esophageal candidiasis, pulmonary point of view doing okay. Spoke to at bedside. Continue BiPAP. Continue IV and inhaled bronchodilator, gastric prophylaxis, DVT prophylaxis. Thank you and we will follow with you. Jesika Srivastava MD
--- NOTE | 2017-03-29 01:57 | PN ---
DATE: 03/28/2017 This is [facility] visit on the medical floor. For Dr. Ferreira. SUBJECTIVE: The patient is a 71-year-old male, seen sitting up in bed, admitted by the emergency room for exacerbation of COPD with progressive worsening cough with the patient now resting comfortably. Antibiotics continuing with good effect. He is known to also have sleep apnea with cachexia of malignancy, SIADH, restless legs, chronic back pain, pneumonia with the cavitary lesion, also ASCVD. At present, he also has adenocarcinoma of the esophagus T3, N1, M0. PHYSICAL EXAMINATION: GENERAL: He appears cachectic. VITAL SIGNS: Temperature 98, pulse 66, respirations 19, blood pressure 108/63, and pulse ox 97%. HEENT: Unremarkable. NECK: Supple. CARDIOPULMONARY: Tachy rate, regular rhythm. LUNGS: Scattered rhonchi. Occasional expiratory wheeze. ABDOMEN: Soft, scaphoid, and nontender. EXTREMITIES: No edema. SKIN: Warm and dry. NEUROLOGIC: Awake and alert. LABORATORY DATA: Labs were done. White blood cell count of 9.1, hemoglobin 10.1, hematocrit 31.9, platelet count of 287,000. Chemistries, metabolic panel showing a normal chemistry panel except for a creatinine 0.4, nonfasting glucose 133, chloride of 95, procalcitonin of 6.7 done three days earlier. The patient's blood cultures, urine cultures were negative. The patient had a chest x-ray done yesterday. It was read as no active pulmonary disease, stable thin-walled cavity right upper lobe. ASSESSMENT: Sepsis with acute bronchitis, persistent upper lobe cavitary lesion, end-stage chronic obstructive pulmonary disease, esophageal cancer, basal cell cancer, history of atherosclerotic cardiovascular disease, cachexia of malignancy, gastroesophageal reflux disease, anxiety, depression, and T3, N1, M0 adenocarcinoma of the esophagus. PLAN: Continue present regimen with antibiotics as per Dr. Horta and Dr. Stephens with slow physiotherapy to be begun as per doctor and his protocols. We will monitor clinically and with labs as indicated. Prognosis for this patient is guarded. Abhijeet Vigil MD [facility] # [id number]
[2017-03-29] MEDS: Meropenem IV 1 gm in NS 50 ML IVPB SCH ×2 (06:47→15:10)
[2017-03-29] MEDS: Sucralfate 1 gm/10 ml Oral Susp UD PO SCH ×2 (06:49→17:38)
[2017-03-29] MEDS: Pantoprazole 40 mg EC Tab PO SCH (06:50)
[2017-03-29] MEDS: Levalbuterol 0.63 MG/3 ML Inhal Soln UD IH PRN ×3 (08:22→20:04)
[2017-03-29] MEDS: Benzocaine/Menthol (Cepacol) Lozenge MT PRN ×2 (08:46→21:36)
[2017-03-29] MEDS: MethylPREDNISolone 40 mg Vial IVP SCH ×2 (09:42→21:28)
[2017-03-29] MEDS: Megestrol Acetate 40 mg/ml Cup PO SCH (09:42)
[2017-03-29] MEDS: guaiFENesin 600 mg ER Tab PO SCH ×2 (09:43→17:38)
[2017-03-29] MEDS: Tiotropium 18 mcg Cap For Inhalation IH SCH (09:43)
[2017-03-29] MEDS: Enoxaparin 40 mg Syringe SC SCH (09:43)
--- NOTE | 2017-03-29 11:33 | CP.PCM.PN ---
<Ceci Bhardwaj - Last Filed: 03/29/17 11:33> Subjective - Date & Time of Evaluation Date of Evaluation: 03/29/17 Time of Evaluation: 09:50 - Subjective Subjective: Seen and examined at the bedside earlier today, no acute overnight events reported. Occasional SOB but no distress. On NC. Continues to tolerate puree diet, no new complaints. Having formed stools. No BM yet today. No report of overt GI bleed. Objective - Vital Signs/Intake and Output Vital Signs (last 24 hours): Temp Pulse Resp BP Pulse Ox 97.9 F 71 18 114/62 97 03/29/17 05:49 03/29/17 05:49 03/29/17 05:49 03/29/17 05:49 03/29/17 05:49 Intake and Output: 03/29/17 03/29/17 06:59 18:59 Intake Total 200 Output Total 875 Balance -675 - Medications Medications: Current Medications Acetaminophen (Tylenol 325mg Tab) 650 mg PO Q6H PRN PRN Reason: Fever >100.4 F Last Admin: 03/28/17 16:54 Dose: 650 mg Alprazolam (Xanax) 0.25 mg PO Q12 PRN; Protocol PRN Reason: Anxiety Stop: 03/29/17 22:01 Last Admin: 03/28/17 22:20 Dose: 0.25 mg Aspirin (Ecotrin) 81 mg PO DAILY [facility] Last Admin: 03/29/17 09:43 Dose: 81 mg Benzocaine/Menthol (Cepacol Sore Throat) 1 carlos MT Q3H PRN PRN Reason: Sore Throat Last Admin: 03/29/17 08:46 Dose: 1 carlos Benzonatate (Tessalon Perles) 200 mg PO TID [facility] Last Admin: 03/29/17 09:43 Dose: 200 mg Diazepam (Valium) 5 mg PO HS PRN; Protocol PRN Reason: Insomnia Last Admin: 03/26/17 22:59 Dose: 5 mg Doxycycline Hyclate (Doryx) 100 mg PO Q12 [facility] Last Admin: 03/29/17 09:43 Dose: 100 mg Enoxaparin Sodium (Lovenox) 40 mg SC DAILY [facility] PRN Reason: Protocol Last Admin: 03/29/17 09:43 Dose: 40 mg Escitalopram Oxalate (Lexapro) 5 mg PO DAILY [facility] Last Admin: 03/29/17 09:42 Dose: 5 mg Fluconazole (Diflucan) 200 mg PO DAILY [facility] PRN Reason: Protocol Last Admin: 03/29/17 09:43 Dose: 200 mg Guaifenesin (Mucinex La) 600 mg PO BID [facility] Last Admin: 03/29/17 09:43 Dose: 600 mg Meropenem (Merrem Iv 1 Gm Premix) 50 mls @ 100 mls/hr IVPB Q8 [facility] Last Admin: 03/29/17 06:47 Dose: 100 mls/hr Levalbuterol HCl (Xopenex) 0.63 mg IH [id number] PRN PRN Reason: Shortness of Breath Last Admin: 03/29/17 08:22 Dose: 0.63 mg Loratadine (Claritin) 10 mg PO DAILY [facility] Last Admin: 03/29/17 09:43 Dose: 10 mg Megestrol Acetate (Megace) 400 mg PO DAILY [facility] Last Admin: 03/29/17 09:42 Dose: 400 mg Methylprednisolone (Solu-Medrol) 20 mg IVP Q12 [facility] Last Admin: 03/29/17 09:42 Dose: 20 mg Montelukast Sodium (Singulair) 10 mg PO HS [facility] Last Admin: 03/28/17 22:19 Dose: 10 mg Non-Formulary Medication (Quinine Sulfate) 324 mg PO HS [facility] Last Admin: 03/28/17 22:19 Dose: Not Given Pantoprazole Sodium (Protonix Ec Tab) 40 mg PO 0600 [facility] Last Admin: 03/29/17 06:50 Dose: 40 mg Sodium Chloride ([place] Nasal [place]) 0 ml NS Q4 [facility] Last Admin: 03/29/17 09:55 Dose: Not Given Sucralfate (Carafate Oral Susp) 1 gm PO 0600,1600 [facility] Last Admin: 03/29/17 06:49 Dose: 1 gm Tamsulosin HCl (Flomax) 0.4 mg PO DAILY [facility] Last Admin: 03/29/17 09:43 Dose: 0.4 mg Tiotropium [place] (Spiriva) 18 mcg IH DAILY [facility] Last Admin: 03/29/17 09:43 Dose: 18 mcg Tramadol HCl (Ultram) 50 mg PO Q8H PRN PRN Reason: Pain, moderate (4-7) Last Admin: 03/28/17 22:20 Dose: 50 mg - Labs Labs: 03/28/17 06:30 03/28/17 06:30 PT 10.3 SECONDS (9.4-12.5) 03/22/17 16:05 INR 0.91 (0.93-1.08) L 03/22/17 16:05 APTT 31.6 Seconds (25.1-36.5) 03/22/17 16:05 - Constitutional Appears: No Acute Distress - Eye Exam Eye Exam: Normal appearance. absent: Scleral icterus - ENT Exam ENT Exam: Mucous Membranes Moist - Neck Exam Neck Exam: Normal Inspection - Respiratory Exam Respiratory Exam: Rhonchi, Wheezes, NORMAL BREATHING PATTERN. absent: Respiratory Distress - Cardiovascular Exam Cardiovascular Exam: +S1, +S2 - GI/Abdominal Exam GI & Abdominal Exam: Soft, Normal Bowel Sounds. absent: Guarding, Tenderness, Organomegaly, Rebound - Extremities Exam Extremities Exam: absent: Calf Tenderness - Neurological Exam Neurological Exam: Alert, Awake, Oriented x3 Assessment and Plan - Assessment and Plan (Free Text) Assessment: Assessment: End-stage chronic obstructive pulmonary disease Esophageal cancer with stricture Fever Status post recent treatment for pneumonia and cavitary lesion Plan: Continue pured diet Aspiration precaution continue PPI On Carafate On IV antibiotics On Solu-Medrol As per ID, pulmonary, oncology Seen and discussed with Dr. Gardner. <Maribell Gardner V - Last Filed: 03/29/17 20:33> Objective - Vital Signs/Intake and Output Vital Signs (last 24 hours): Temp Pulse Resp BP Pulse Ox 97.9 F 92 H 20 119/72 97 03/29/17 18:00 03/29/17 18:00 03/29/17 18:00 03/29/17 18:00 03/29/17 18:00 Intake and Output: 03/29/17 03/30/17 18:59 06:59 Intake Total 360 Balance 360 - Medications Medications: Current Medications Acetaminophen (Tylenol 325mg Tab) 650 mg PO Q6H PRN PRN Reason: Fever >100.4 F Last Admin: 03/28/17 16:54 Dose: 650 mg Acetylcysteine (Acetylcysteine 20%) 3 ml IH Q12 [facility] Last Admin: 03/29/17 20:04 Dose: 3 ml Alprazolam (Xanax) 0.25 mg PO Q12 PRN; Protocol PRN Reason: Anxiety Stop: 03/29/17 22:01 Last Admin: 03/28/17 22:20 Dose: 0.25 mg Aspirin (Ecotrin) 81 mg PO DAILY [facility] Last Admin: 03/29/17 09:43 Dose: 81 mg Benzocaine/Menthol (Cepacol Sore Throat) 1 carlos MT Q3H PRN PRN Reason: Sore Throat Last Admin: 03/29/17 08:46 Dose: 1 carlos Benzonatate (Tessalon Perles) 200 mg PO TID [facility] Last Admin: 03/29/17 15:10 Dose: 200 mg Diazepam (Valium) 5 mg PO HS PRN; Protocol PRN Reason: Insomnia Last Admin: 03/26/17 22:59 Dose: 5 mg Doxycycline Hyclate (Doryx) 100 mg PO Q12 [facility] Last Admin: 03/29/17 09:43 Dose: 100 mg Enoxaparin Sodium (Lovenox) 40 mg SC DAILY [facility] PRN Reason: Protocol Last Admin: 03/29/17 09:43 Dose: 40 mg Escitalopram Oxalate (Lexapro) 5 mg PO DAILY [facility] Last Admin: 03/29/17 09:42 Dose: 5 mg Fluconazole (Diflucan) 200 mg PO DAILY [facility] PRN Reason: Protocol Last Admin: 03/29/17 09:43 Dose: 200 mg Guaifenesin (Mucinex La) 600 mg PO BID [facility] Last Admin: 03/29/17 17:38 Dose: 600 mg Levalbuterol HCl (Xopenex) 0.63 mg IH [id number] PRN PRN Reason: Shortness of Breath Last Admin: 03/29/17 20:04 Dose: 0.63 mg Loratadine (Claritin) 10 mg PO DAILY [facility] Last Admin: 03/29/17 09:43 Dose: 10 mg Megestrol Acetate (Megace) 400 mg PO DAILY [facility] Last Admin: 03/29/17 09:42 Dose: 400 mg Methylprednisolone (Solu-Medrol) 20 mg IVP Q12 [facility] Last Admin: 03/29/17 09:42 Dose: 20 mg Montelukast Sodium (Singulair) 10 mg PO HS [facility] Last Admin: 03/28/17 22:19 Dose: 10 mg Non-Formulary Medication (Quinine Sulfate) 324 mg PO HS [facility] Last Admin: 03/28/17 22:19 Dose: Not Given Pantoprazole Sodium (Protonix Ec Tab) 40 mg PO 0600 [facility] Last Admin: 03/29/17 06:50 Dose: 40 mg Sodium Chloride ([place] Nasal [place]) 0 ml NS Q4 [facility] Last Admin: 03/29/17 15:11 Dose: Not Given Sucralfate (Carafate Oral Susp) 1 gm PO 0600,1600 [facility] Last Admin: 03/29/17 17:38 Dose: 1 gm Tamsulosin HCl (Flomax) 0.4 mg PO DAILY [facility] Last Admin: 03/29/17 09:43 Dose: 0.4 mg Tiotropium [place] (Spiriva) 18 mcg IH DAILY [facility] Last Admin: 03/29/17 09:43 Dose: 18 mcg Tramadol HCl (Ultram) 50 mg PO Q8H PRN PRN Reason: Pain, moderate (4-7) Last Admin: 03/28/17 22:20 Dose: 50 mg - Labs Labs: 03/28/17 06:30 03/28/17 06:30 PT 10.3 SECONDS (9.4-12.5) 03/22/17 16:05 INR 0.91 (0.93-1.08) L 03/22/17 16:05 APTT 31.6 Seconds (25.1-36.5) 03/22/17 16:05 Attending/Attestation - Attestation I have personally seen and examined this patient.: Yes I have fully participated in the care of the patient.: Yes I have reviewed all pertinent clinical information, including history, physical exam and plan: Yes Notes (Text): This is an addendum to GI progress report dictated by Ceci Bhardwaj APN.The patient was seen and examined earlier. Medical records, lab studies, imagings were reviewed. Last 24 hours events reviewed. Agreed with the above treatment plan as outlined in Ceci Bhardwaj APN's notes the with the addition of the following 3 complaining of shortness of breath Tolerated. Diet on examination abdomen soft no tenderness Esophageal cancer with stricture tolerating pured diet history of recurrent pneumonia 03/29/17 20:31
--- NOTE | 2017-03-29 12:38 | CP.PCM.PN ---
Subjective - Date & Time of Evaluation Date of Evaluation: 03/29/17 Time of Evaluation: 11:35 - Subjective Subjective: Comfortable in bed, still with cough but improving, no fevers overnight. Objective - Vital Signs/Intake and Output Vital Signs (last 24 hours): Temp Pulse Resp BP Pulse Ox 97.9 F 71 18 114/62 97 03/29/17 05:49 03/29/17 05:49 03/29/17 05:49 03/29/17 05:49 03/29/17 05:49 Intake and Output: 03/29/17 03/29/17 06:59 18:59 Intake Total 200 Output Total 875 Balance -675 - Medications Medications: Current Medications Acetaminophen (Tylenol 325mg Tab) 650 mg PO Q6H PRN PRN Reason: Fever >100.4 F Last Admin: 03/28/17 16:54 Dose: 650 mg Alprazolam (Xanax) 0.25 mg PO Q12 PRN; Protocol PRN Reason: Anxiety Stop: 03/29/17 22:01 Last Admin: 03/28/17 22:20 Dose: 0.25 mg Aspirin (Ecotrin) 81 mg PO DAILY [facility] Last Admin: 03/29/17 09:43 Dose: 81 mg Benzocaine/Menthol (Cepacol Sore Throat) 1 carlos MT Q3H PRN PRN Reason: Sore Throat Last Admin: 03/29/17 08:46 Dose: 1 carlos Benzonatate (Tessalon Perles) 200 mg PO TID [facility] Last Admin: 03/29/17 09:43 Dose: 200 mg Diazepam (Valium) 5 mg PO HS PRN; Protocol PRN Reason: Insomnia Last Admin: 03/26/17 22:59 Dose: 5 mg Doxycycline Hyclate (Doryx) 100 mg PO Q12 [facility] Last Admin: 03/29/17 09:43 Dose: 100 mg Enoxaparin Sodium (Lovenox) 40 mg SC DAILY [facility] PRN Reason: Protocol Last Admin: 03/29/17 09:43 Dose: 40 mg Escitalopram Oxalate (Lexapro) 5 mg PO DAILY [facility] Last Admin: 03/29/17 09:42 Dose: 5 mg Fluconazole (Diflucan) 200 mg PO DAILY [facility] PRN Reason: Protocol Last Admin: 03/29/17 09:43 Dose: 200 mg Guaifenesin (Mucinex [place]) 600 mg PO BID [facility] Last Admin: 03/29/17 09:43 Dose: 600 mg Meropenem (Merrem Iv 1 Gm Premix) 50 mls @ 100 mls/hr IVPB Q8 [facility] Last Admin: 03/29/17 06:47 Dose: 100 mls/hr Levalbuterol HCl (Xopenex) 0.63 mg IH [id number] PRN PRN Reason: Shortness of Breath Last Admin: 03/29/17 08:22 Dose: 0.63 mg Loratadine (Claritin) 10 mg PO DAILY [facility] Last Admin: 03/29/17 09:43 Dose: 10 mg Megestrol Acetate (Megace) 400 mg PO DAILY [facility] Last Admin: 03/29/17 09:42 Dose: 400 mg Methylprednisolone (Solu-Medrol) 20 mg IVP Q12 [facility] Last Admin: 03/29/17 09:42 Dose: 20 mg Montelukast Sodium (Singulair) 10 mg PO HS [facility] Last Admin: 03/28/17 22:19 Dose: 10 mg Non-Formulary Medication (Quinine Sulfate) 324 mg PO HS [facility] Last Admin: 03/28/17 22:19 Dose: Not Given Pantoprazole Sodium (Protonix Ec Tab) 40 mg PO 0600 [facility] Last Admin: 03/29/17 06:50 Dose: 40 mg Sodium Chloride ([place] Nasal [place]) 0 ml NS Q4 [facility] Last Admin: 03/29/17 09:55 Dose: Not Given Sucralfate (Carafate Oral Susp) 1 gm PO 0600,1600 [facility] Last Admin: 03/29/17 06:49 Dose: 1 gm Tamsulosin HCl (Flomax) 0.4 mg PO DAILY [facility] Last Admin: 03/29/17 09:43 Dose: 0.4 mg Tiotropium [place] (Spiriva) 18 mcg IH DAILY [facility] Last Admin: 03/29/17 09:43 Dose: 18 mcg Tramadol HCl (Ultram) 50 mg PO Q8H PRN PRN Reason: Pain, moderate (4-7) Last Admin: 03/28/17 22:20 Dose: 50 mg - Labs Labs: 03/28/17 06:30 03/28/17 06:30 PT 10.3 SECONDS (9.4-12.5) 01/05/18 16:05 INR 0.91 (0.93-1.08) L 03/22/17 16:05 APTT 31.6 Seconds (25.1-36.5) 03/22/17 16:05 - Constitutional Appears: Cachectic, Chronically Ill - Head Exam Head Exam: NORMAL INSPECTION - Neck Exam Neck Exam: absent: Meningismus - Respiratory Exam Respiratory Exam: Decreased Breath Sounds - Cardiovascular Exam Cardiovascular Exam: +S1, +S2 - GI/Abdominal Exam GI & Abdominal Exam: Soft. absent: Tenderness Assessment and Plan - Assessment and Plan (Free Text) Plan: Assessment consider sepsis due to acute bronchitis in a patient with persistent right upper lobe cavitary lesion R/O HCAP history of severe sepsis with respiratory failure from lung cavitary lesion in the right upper lobe - lung pyogenic abscess with Pseudomonas - no evidence of TB; S/P treatment with 6 weeks of antibiotics in 2017 end-stage COPD with history of heavy smoking esophageal cancer CAD basal cell CA S/P appendectomy Plan continue Doxcycline and Merrem day 7; cultures have been negative; CXR did not show pneumonia but showed decreased size of right upper lobe cavitary lesion noted Dr. Srivastava's recommendations may d/c antibiotics by tomorrow overall prognosis is poor
[2017-03-29] MEDS: Acetylcysteine 20% Inhal Soln (4ml) IH SCH (20:04)
[2017-03-29] MEDS: QUININE SULFATE 324 MG PO SCH (22:49)
--- NOTE | 2017-03-30 00:28 | PN ---
PULMONARY PROGRESS NOTE DATE: 03/29/2017 REFERRING PHYSICIAN: Abhijeet Vigil MD SUBJECTIVE: He is sitting side of the bed. Night was unremarkable, tolerated BiPAP for 8 hours or so with adding humidification to the BiPAP he felt better. Daytime still feel dry mouth, sore throat, has some cough, and sputum production. No nausea. No vomiting, diarrhea, leg pain, or leg swelling. OBJECTIVE: GENERAL: In no acute distress. VITAL SIGNS: Temperature is 98, heart rate is 92, respiratory rate is 20, blood pressure is 114/62, and pulse ox is 97% on nasal cannula. HEENT: Dry mucous membrane. NECK: Supple. No JVD. LUNGS: Has a scattered rhonchi. HEART: S1 and S2. ABDOMEN: Soft and nontender. No organomegaly. EXTREMITIES: There is no edema. NEUROLOGIC: Awake, alert, and follow simple commands. MEDICATIONS: He is on Mucomyst added today 20% 3 mL q.12 hours, Carafate 1 g twice a day, Cepacol lozenges q.3 hours p.r.n., Claritin 10 mg daily, Diflucan 200 mg daily, doxycycline 100 mg twice a day, Ecotrin 81 mg daily, Flomax 0.4 mg daily, Lexapro 5 mg daily, Lovenox 40 mg daily, Megace 400 mg daily, Mucinex LA 600 mg twice a day, nasal saline two spray each nostril q.4 hours, Protonix 40 mg daily, quinine 324 mg at bedtime, Singulair 10 mg daily, Solu-Medrol 20 mg q.12 hours, Spiriva one capsule inhaled daily, Tessalon Perles 200 mg q.8 hours, Tylenol p.r.n., Ultram 50 mg q.8 hours p.r.n., Valium 5 mg at bedtime p.r.n., and Xopenex inhaled q.6 hours. LABORATORY DATA: Reviewed, no new lab is available. Microbiology; blood culture and urine culture, there is no growth. IMPRESSION AND PLAN: Exacerbation of chronic obstructive lung disease, may have pneumonia with high procalcitonin, esophageal cancer, may have sleep apnea syndrome, and clinically assume esophageal candidiasis. Pulmonary point of view, doing okay. I spoke to nursing staff, we will place him on 35% humidified face tent oxygen in an attempt to moisturize his mouth. He is already on Diflucan fungus. Continue IV and inhaled bronchodilator. Encourage BiPAP use at nighttime, gastric and deep venous thrombosis prophylaxis. Thank you and we will follow with you. Jesika Srivastava MD
--- NOTE | 2017-03-30 05:14 | PN ---
DATE: ONCOLOGY PROGRESS NOTE LOCATION: The patient is in room 378, bed 2. SUBJECTIVE: The patient is sitting up in the chair. The patient still has trouble bringing up his phlegm, most of it is in the tracheobronchial tree and he has a tough time getting it out. I feels that he has rattling in the chest, but nothing is coming out, especially over the last several hours. Night was unremarkable. He tolerated the BiPAP for about eight hours. He still complains of significant stuffiness in the nose, in the nostrils and in the sinuses. Sore throat is slightly improved, but dryness is still a problem. No nausea. No vomiting. No diarrhea. The patient is eating reasonably well and sticking to his pureed diet. The patient is also taking supplements. No leg pain. No leg swelling. PHYSICAL EXAMINATION GENERAL: The patient is in no acute distress. VITAL SIGNS: Stable as stated in the chart. T-max is 98.4, heart rate is around 100, respiration is 20, blood pressure is 108/63, and pulse oximetry is 97% on nasal cannula. HEENT: Head is normocephalic, atraumatic. Conjunctivae pale. Sclerae are anicteric. No oropharyngeal lesions are noted. Tongue is moist. No ulcerations are noted. NECK: Supple. There is no adenopathy. No jugular venous distention noted. LUNGS: The patient has prolonged expiratory phase of breathing with scattered wheezes. Most of the noises are heard in the tracheobronchial tree from retained secretions. HEART: Examination of the heart reveals S1 and S2 to be normal. No gallop or murmurs heard. ABDOMEN: Soft, scaphoid, and nontender. Liver and spleen not palpable. No rebound, rigidity, or guarding is noted. EXTREMITIES: Reveal no cyanosis, clubbing, or edema. NEUROLOGIC: Reveals higher functions to be normal. No focal deficits are noted. AND RECTAL: Deferred. LYMPHATICS: There is no evidence of adenopathy examining the neck, axilla, and groin. MEDICATIONS: The patient's medications were reviewed. He is on Carafate 1 gm twice a day, Cepacol lozenges q. 3 hours p.r.n., Claritin 10 mg daily, Diflucan 200 mg daily, doxycycline 100 mg twice a day, Ecotrin 81 mg daily, Flomax 0.4 mg daily, Lexapro 5 mg daily, Lovenox 40 mg subcu daily, Megace 400 mg daily, meropenem 1 gm IV q. 8 hours, Mucinex LA 600 mg twice daily, Protonix 40 mg daily, quinine sulfate 324 mg at bedtime, Singulair 10 mg daily, Solu-Medrol 20 mg IV q. 12 hours, Spiriva capsule inhale daily, Tessalon Perles 200 mg three times a day, Tylenol p.r.n., Ultram 50 mg p.o. q. 8 hours p.r.n., Valium 5 mg at bedtime, Xanax 0.25 mg p.o. q. 12 hours p.r.n., Xopenex inhaler q. 6 hours. The patient is off the Mucomyst now for the last two days. LABORATORY DATA: Reveals a white count of 10.1, hemoglobin is 9.1, hematocrit 31.9, and platelet count is 287,000. Sodium is 132, potassium is 4.5, chloride 95, bicarbonate 35, BUN is 16, creatinine 0.4, glucose 133, calcium is 9.8, AST is 19, ALT is 25, alkaline phosphatase is 45 with an albumin of 2.1. Procalcitonin was elevated at 6.7, which is why the patient is continued on antibiotics. 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 Since the patient is very fragile and has had recurrent infection, we are managing him symptomatically without plans for any endoscopy in the near future. Spoken to Dr. Srivastava. The patient is going to probably try . In the interim, he is also going to try starting him back on his Mucomyst at least twice a day to see if that will help him bring up the phlegm. In the meantime, we are keeping a strict watch and calorie count on his dietary intake. The patient will continue the current antibiotics and we will discuss with Dr. Stephens the duration of therapy. Make sure that the patient is also started on physical therapy to help him from the point of view of deconditioning at this point in time while he is on ongoing treatments. Routine post-exam instructions have been given to the patient. Time spent with the patient, looking at the chart, reviewing the labs, talking to the nurses, spoke to Dr. Srivastava took us more than 45 minutes. Labs for a.m. has been requested. Please make a note that this is a medically necessary comprehensive medical visit in a patient with multiple comorbid medical issues. María Ferreira MD
[2017-03-30] MEDS: Sucralfate 1 gm/10 ml Oral Susp UD PO SCH ×2 (06:09→18:12)
[2017-03-30] MEDS: Pantoprazole 40 mg EC Tab PO SCH (06:09)
[2017-03-30] MEDS: Levalbuterol 0.63 MG/3 ML Inhal Soln UD IH PRN ×3 (08:35→20:11)
[2017-03-30] MEDS: Enoxaparin 40 mg Syringe SC SCH (10:27)
[2017-03-30] MEDS: Tiotropium 18 mcg Cap For Inhalation IH SCH (10:27)
[2017-03-30] MEDS: guaiFENesin 600 mg ER Tab PO SCH ×2 (10:28→18:17)
[2017-03-30] MEDS: Megestrol Acetate 40 mg/ml Cup PO SCH (10:28)
[2017-03-30] MEDS: MethylPREDNISolone 40 mg Vial IVP SCH ×2 (10:28→21:29)
[2017-03-30] MEDS: Benzocaine/Menthol (Cepacol) Lozenge MT PRN ×2 (10:43→21:34)
--- NOTE | 2017-03-30 18:16 | PN ---
DATE: 03/30/2017 SUBJECTIVE: The patient is in bed, in no acute distress, nontoxic. PHYSICAL EXAMINATION: VITAL SIGNS: Temperature is 97, blood pressure is 130/70, respiratory rate of 20, heart rate of 91. HEENT: Unremarkable. NECK: Supple. LUNGS: Have decreased breath sounds. HEART: Normal S1, S2. ABDOMEN: Soft. LABORATORY DATA: Reveals a white count of 9.1, hemoglobin of 10, platelets of 287, BUN of 16, creatinine of 0.4. Procalcitonin is 6.7, and urinalysis is noted. Microbiology reveals the blood cultures and urine cultures are negative. Review of the orders reveals the patient to be on p.o. fluconazole and Solu-Medrol. ASSESSMENT AND PLAN: A 71-year-old male with sepsis with acute bronchitis and persistent upper lobe cavitary lesion and history of severe sepsis, end-stage chronic obstructive pulmonary disease, heavy smoker, esophageal cancer, coronary artery disease, . Currently now off of antibiotics. Has completed 7 days of meropenem and doxycycline. The patient is on Diflucan p.o. Chronically ill, debilitated patient. Kwame Horta MD
[2017-03-30] MEDS: Acetylcysteine 20% Inhal Soln (4ml) IH SCH (20:09)
[2017-03-30] MEDS: QUININE SULFATE 324 MG PO SCH (21:36)
--- NOTE | 2017-03-30 22:56 | PN ---
DATE: 03/30/2017 PULMONARY PROGRESS NOTE REFERRING PHYSICIAN: Abhijeet Vigil MD SUBJECTIVE: He is out of bed to chair. Night was unremarkable, part of the night used BiPAP, could not tolerate face stent. No nausea. No vomiting. No diarrhea. No leg pain or leg swelling. PHYSICAL EXAMINATION: GENERAL: In no acute distress. VITAL SIGNS: Temperature is 98, heart rate is 90, respiratory rate is 20, blood pressure 133/77, pulse rate 97 on BiPAP this morning. HEENT: Dry mucous membranes. No ulcer or thrush noted. NECK: Supple. No JVD. LUNGS: Have a prolonged expiratory phase. HEART: S1 and S2. ABDOMEN: Soft and nontender. No organomegaly. EXTREMITIES: There is no edema. NEUROLOGIC: Awake, alert and follows simple commands. LABORATORY DATA: Microbiology; blood culture, and urine culture, there is no growth. MEDICATIONS: He is on Mucomyst 20% inhaled twice a day, Carafate 1 gm p.o. twice a day, Cepacol lozenges q.3 hours p.r.n., Claritin 10 mg daily, Diflucan 200 mg daily, doxycycline 100 mg twice a day, Ecotrin 81 mg daily, Flomax 0.4 mg daily, Lexapro 5 mg daily, Lovenox 40 mg daily, Megace 200 mg daily, Mucinex LA 600 mg twice a day, nasal saline two sprays each nostril q.6 hours, Protonix 40 mg daily, quinine sulfate 324 mg at bedtime., Singulair 10 mg daily, Solu-Medrol 20 mg q.12 hours, Spiriva one capsule inhaled daily, Tylenol p.r.n., Ultram 50 mg q.8 hours p.r.n., Valium 5 mg at bedtime. p.r.n., and Xopenex inhaled q.6 hours. IMPRESSION AND PLAN: Exacerbation of chronic obstructive lung disease, may have pneumonia. 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 Pulmonary point of view, doing okay. Continue IV and inhaled bronchodilators and gastric prophylaxis, DVT prophylaxis, cough suppressor, out of bed to chair. Gastroesophageal reflux disease precaution. We will follow with you. Jesika Srivastava MD [facility] # [id number]
[2017-03-31] MEDS: Levalbuterol 0.63 MG/3 ML Inhal Soln UD IH PRN ×4 (03:22→20:47)
[2017-03-31] MEDS: Sucralfate 1 gm/10 ml Oral Susp UD PO SCH ×2 (07:03→17:06)
[2017-03-31] MEDS: Pantoprazole 40 mg EC Tab PO SCH (07:06)
[2017-03-31] MEDS: Acetylcysteine 20% Inhal Soln (4ml) IH SCH ×4 (08:12→21:28)
[2017-03-31] MEDS: Megestrol Acetate 40 mg/ml Cup PO SCH (10:36)
[2017-03-31] MEDS: Tiotropium 18 mcg Cap For Inhalation IH SCH (10:36)
[2017-03-31] MEDS: MethylPREDNISolone 40 mg Vial IVP SCH (10:36)
[2017-03-31] MEDS: Benzocaine/Menthol (Cepacol) Lozenge MT PRN ×2 (10:42→21:43)
[2017-03-31] MEDS: Enoxaparin 40 mg Syringe SC SCH ×2 (13:36→17:06)
[2017-03-31] MEDS: guaiFENesin 600 mg ER Tab PO SCH ×2 (13:36→17:06)
--- NOTE | 2017-03-31 16:24 | CP.PCM.PN ---
Subjective - Date & Time of Evaluation Date of Evaluation: 03/30/17 Time of Evaluation: 19:00 - Subjective Subjective: Continues to improve slowly with breathing. Complaining that bipap has not water (humidfier) and air is drying out mucosa. Otherwise no acute complaints. at bedside ROS: 12 ROS negative Pain: denies Objective - Vital Signs/Intake and Output Vital Signs (last 24 hours): Temp Pulse Resp BP Pulse Ox 97.5 F L 76 19 123/75 95 03/31/17 06:00 03/31/17 06:00 03/31/17 06:00 03/31/17 06:00 03/31/17 06:00 Intake and Output: 03/31/17 03/31/17 06:59 18:59 Intake Total 240 Output Total 600 Balance -360 - Medications Medications: Current Medications Acetaminophen (Tylenol 325mg Tab) 650 mg PO Q6H PRN PRN Reason: Fever >100.4 F Last Admin: 03/28/17 16:54 Dose: 650 mg Acetylcysteine (Acetylcysteine 20%) 3 ml IH Q12 [facility] Last Admin: 03/31/17 09:44 Dose: Not Given Alprazolam (Xanax) 0.25 mg PO Q12H PRN; Protocol PRN Reason: Anxiety Stop: 04/06/17 19:16 Aspirin (Ecotrin) 81 mg PO DAILY [facility] Last Admin: 03/31/17 10:37 Dose: 81 mg Benzocaine/Menthol (Cepacol Sore Throat) 1 carlos MT Q3H PRN PRN Reason: Sore Throat Last Admin: 03/31/17 10:42 Dose: 1 carlos Benzonatate (Tessalon Perles) 200 mg PO TID [facility] Last Admin: 03/31/17 13:36 Dose: 200 mg Diazepam (Valium) 5 mg PO HS PRN; Protocol PRN Reason: Insomnia Last Admin: 03/30/17 21:28 Dose: 5 mg Doxycycline Hyclate (Doryx) 100 mg PO Q12 [facility] Last Admin: 03/31/17 10:37 Dose: 100 mg Enoxaparin Sodium (Lovenox) 40 mg SC DAILY [facility] PRN Reason: Protocol Escitalopram Oxalate (Lexapro) 5 mg PO DAILY [facility] Last Admin: 03/31/17 10:37 Dose: 5 mg Guaifenesin (Mucinex La) 600 mg PO BID [facility] Last Admin: 03/31/17 13:36 Dose: 600 mg Levalbuterol HCl (Xopenex) 0.63 mg IH [id number] PRN PRN Reason: Shortness of Breath Last Admin: 03/31/17 15:29 Dose: 0.63 mg Loratadine (Claritin) 10 mg PO DAILY [facility] Last Admin: 03/31/17 10:37 Dose: 10 mg Megestrol Acetate (Megace) 400 mg PO DAILY [facility] Last Admin: 03/31/17 10:36 Dose: 400 mg Methylprednisolone (Solu-Medrol) 20 mg IVP Q12 [facility] Last Admin: 03/31/17 10:36 Dose: 20 mg Montelukast Sodium (Singulair) 10 mg PO HS [facility] Last Admin: 03/30/17 21:28 Dose: 10 mg Non-Formulary Medication (Quinine Sulfate) 324 mg PO HS [facility] Last Admin: 03/30/17 21:36 Dose: Not Given Pantoprazole Sodium (Protonix Ec Tab) 40 mg PO 0600 [facility] Last Admin: 03/31/17 07:06 Dose: 40 mg Sodium Chloride ([place] Nasal [place]) 0 ml NS Q4 [facility] Last Admin: 03/31/17 13:21 Dose: Not Given Sucralfate (Carafate Oral Susp) 1 gm PO 0600,1600 [facility] Last Admin: 03/31/17 07:03 Dose: 1 gm Tamsulosin HCl (Flomax) 0.4 mg PO DAILY [facility] Last Admin: 03/31/17 10:37 Dose: 0.4 mg Tiotropium [place] (Spiriva) 18 mcg IH DAILY [facility] Last Admin: 03/31/17 10:36 Dose: 18 mcg Tramadol HCl (Ultram) 50 mg PO Q8H PRN PRN Reason: Pain, moderate (4-7) Last Admin: 03/30/17 21:27 Dose: 50 mg - Labs Labs: 03/28/17 06:30 03/28/17 06:30 PT 10.3 SECONDS (9.4-12.5) 03/22/17 16:05 INR 0.91 (0.93-1.08) L 03/22/17 16:05 APTT 31.6 Seconds (25.1-36.5) 03/22/17 16:05 - Constitutional Appears: Non-toxic - Head Exam Head Exam: ATRAUMATIC, NORMAL INSPECTION, NORMOCEPHALIC - Neck Exam Neck Exam: Full ROM - Respiratory Exam Respiratory Exam: Wheezes. absent: Accessory Muscle Use, Chest Wall Tenderness - Cardiovascular Exam Cardiovascular Exam: REGULAR RHYTHM, +S1, +S2. absent: Murmur - GI/Abdominal Exam GI & Abdominal Exam: Soft, Normal Bowel Sounds. absent: Tenderness - Extremities Exam Extremities Exam: Full ROM, Normal Capillary Refill, Normal Inspection. absent : Joint Swelling, Pedal Edema Assessment and Plan - Assessment and Plan (Free Text) Assessment: Mr. Simms cheryl 71 y/o man with pmhx significant for stage III carcinoma of the esophagus involving the perisophagial lymph nodes whose admitted with RUL cavitary lesions concerning for HCAP and concern for COPD exacerbation. Appreciated pulmonary and ID recommendations. Will continue to taper steroids per pulmonary and consider discontinuing abx tomorrow per ID recommendations. Geremias Ferreira MD Oncology Service
--- NOTE | 2017-03-31 16:33 | CP.PCM.PN ---
Subjective - Date & Time of Evaluation Date of Evaluation: 03/31/17 Time of Evaluation: 18:00 - Subjective Subjective: No acute events overnight. Steroids continue to be tapered. Breathing unchanged ROS: 12 ROS otherwise negative Pain: denies Objective - Vital Signs/Intake and Output Vital Signs (last 24 hours): Temp Pulse Resp BP Pulse Ox 97.5 F L 76 19 123/75 95 03/31/17 06:00 03/31/17 06:00 03/31/17 06:00 03/31/17 06:00 03/31/17 06:00 Intake and Output: 03/31/17 03/31/17 06:59 18:59 Intake Total 240 Output Total 600 Balance -360 - Medications Medications: Current Medications Acetaminophen (Tylenol 325mg Tab) 650 mg PO Q6H PRN PRN Reason: Fever >100.4 F Last Admin: 03/28/17 16:54 Dose: 650 mg Acetylcysteine (Acetylcysteine 20%) 3 ml IH Q12 [facility] Last Admin: 03/31/17 09:44 Dose: Not Given Alprazolam (Xanax) 0.25 mg PO Q12H PRN; Protocol PRN Reason: Anxiety Stop: 04/06/17 19:16 Aspirin (Ecotrin) 81 mg PO DAILY [facility] Last Admin: 03/31/17 10:37 Dose: 81 mg Benzocaine/Menthol (Cepacol Sore Throat) 1 carlos MT Q3H PRN PRN Reason: Sore Throat Last Admin: 03/31/17 10:42 Dose: 1 carlos Benzonatate (Tessalon Perles) 200 mg PO TID [facility] Last Admin: 03/31/17 13:36 Dose: 200 mg Diazepam (Valium) 5 mg PO HS PRN; Protocol PRN Reason: Insomnia Last Admin: 03/30/17 21:28 Dose: 5 mg Doxycycline Hyclate (Doryx) 100 mg PO Q12 [facility] Last Admin: 03/31/17 10:37 Dose: 100 mg Enoxaparin Sodium (Lovenox) 40 mg SC DAILY [facility] PRN Reason: Protocol Escitalopram Oxalate (Lexapro) 5 mg PO DAILY [facility] Last Admin: 03/31/17 10:37 Dose: 5 mg Guaifenesin (Mucinex La) 600 mg PO BID [facility] Last Admin: 03/31/17 13:36 Dose: 600 mg Levalbuterol HCl (Xopenex) 0.63 mg IH [id number] PRN PRN Reason: Shortness of Breath Last Admin: 03/31/17 15:29 Dose: 0.63 mg Loratadine (Claritin) 10 mg PO DAILY [facility] Last Admin: 03/31/17 10:37 Dose: 10 mg Megestrol Acetate (Megace) 400 mg PO DAILY [facility] Last Admin: 03/31/17 10:36 Dose: 400 mg Methylprednisolone (Solu-Medrol) 20 mg IVP Q12 [facility] Last Admin: 03/31/17 10:36 Dose: 20 mg Montelukast Sodium (Singulair) 10 mg PO HS [facility] Last Admin: 03/30/17 21:28 Dose: 10 mg Non-Formulary Medication (Quinine Sulfate) 324 mg PO HS [facility] Last Admin: 03/30/17 21:36 Dose: Not Given Pantoprazole Sodium (Protonix Ec Tab) 40 mg PO 0600 [facility] Last Admin: 03/31/17 07:06 Dose: 40 mg Sodium Chloride ([place] Nasal [place]) 0 ml NS Q4 [facility] Last Admin: 03/31/17 13:21 Dose: Not Given Sucralfate (Carafate Oral Susp) 1 gm PO 0600,1600 [facility] Last Admin: 03/31/17 07:03 Dose: 1 gm Tamsulosin HCl (Flomax) 0.4 mg PO DAILY [facility] Last Admin: 03/31/17 10:37 Dose: 0.4 mg Tiotropium [place] (Spiriva) 18 mcg IH DAILY [facility] Last Admin: 03/31/17 10:36 Dose: 18 mcg Tramadol HCl (Ultram) 50 mg PO Q8H PRN PRN Reason: Pain, moderate (4-7) Last Admin: 03/30/17 21:27 Dose: 50 mg - Labs Labs: 03/28/17 06:30 03/28/17 06:30 PT 10.3 SECONDS (9.4-12.5) 03/22/17 16:05 INR 0.91 (0.93-1.08) L 03/22/17 16:05 APTT 31.6 Seconds (25.1-36.5) 03/22/17 16:05 - Constitutional Appears: Non-toxic - Eye Exam Eye Exam: Normal appearance - Respiratory Exam Respiratory Exam: Wheezes, NORMAL BREATHING PATTERN. absent: Accessory Muscle Use, Respiratory Distress - Cardiovascular Exam Cardiovascular Exam: REGULAR RHYTHM, +S1, +S2. absent: Murmur - GI/Abdominal Exam GI & Abdominal Exam: Soft, Normal Bowel Sounds. absent: Tenderness - Extremities Exam Extremities Exam: Full ROM, Normal Capillary Refill, Normal Inspection. absent : Joint Swelling, Pedal Edema Assessment and Plan - Assessment and Plan (Free Text) Assessment: Mr. Simms cheryl 71 y/o man with pmhx significant for stage III carcinoma of the esophagus involving the perisophagial lymph nodes whose admitted with RUL cavitary lesions concerning for HCAP and concern for COPD exacerbation. Appreciated pulmonary and ID recommendations. Will continue to taper steroids per pulmonary and consider discontinuing abx tomorrow per ID recommendations. Geremias Ferreira MD Oncology Service
[2017-03-31] MEDS: QUININE SULFATE 324 MG PO SCH (22:00)
--- NOTE | 2017-03-31 23:15 | PN ---
DATE: 03/31/2017 PULMONARY PROGRESS NOTE REFERRING PHYSICIAN: Abhijeet Vigil MD SUBJECTIVE: He is out of bed to chair. is at bedside. This morning had an episode of some burping and felt he may aspirated. No nausea. No vomiting. No diarrhea. No leg pain or leg swelling. OBJECTIVE: GENERAL: In no acute distress. VITAL SIGNS: Temperature is 98, heart rate is 104, respiratory rate is 20, blood pressure 123/75, and pulse oximetry 95% on 3 L nasal cannula. HEENT: Moist mucous membranes. No ulcer or thrush noted. NECK: Supple. No JVD. LUNGS: Has poor airflow. HEART: S1 and S2. ABDOMEN: Soft and nontender. No organomegaly. EXTREMITIES: No edema. NEUROLOGIC: Awake, alert and follow simple commands. MEDICATIONS: He is on Mucomyst 20% inhaled q. 12 hours, Carafate 1 g twice a day, Cepacol lozenges q.3 hours p.r.n., Claritin 10 mg daily, doxycycline 100 mg twice a day, Ecotrin 81 mg daily, Flomax 0.4 mg daily, Lexapro 5 mg daily, Lovenox 40 mg daily, Megace 400 mg daily, Mucinex LA 600 mg twice a day, nasal saline two sprays each nostril q.12 hours, Protonix 40 mg daily, quinine sulfate 324 mg daily, Singulair 10 mg daily, Solu-Medrol 20 mg q.12 hours, Spiriva inhaled daily, Tessalon Perles 200 mg three times a day, Tylenol p.r.n., Ultram 50 mg q. 8 hours p.r.n., Valium 5 mg at bedtime, Xanax 0.25 mg p.o. q. 12 hours, and Xopenex inhaler q. 6 hours p.r.n. LABORATORY DATA: Reviewed and no new lab is available since yesterday. IMPRESSION AND PLAN: Exacerbation of chronic obstructive lung disease, may have pneumonia, has high procalcitonin; esophageal cancer; may have sleep apnea syndrome. Pulmonary point of view, doing okay. We will discontinue Solu-Medrol. Place him on prednisone 40 mg and taper slowly. Gastric prophylaxis and deep venous thrombosis prophylaxis. His daily prednisone use as an outpatient 10 mg to 20 mg, needs GI follow up. Thank you and we will follow with you. Jesika Srivastava MD
--- NOTE | 2017-04-01 01:28 | PN ---
DATE: 03/31/2017 SUBJECTIVE: The patient was seen early this morning. No fevers and no chills. No nausea or vomiting. OBJECTIVE: VITAL SIGNS: On exam, temperature is 98, blood pressure is 126/60, respiratory rate 22, and heart rate of 104. HEENT: Unremarkable. NECK: Supple. LUNGS: Decreased breath sounds. HEART: Normal S1, S2. ABDOMEN: Soft, nontender. LABORATORY EXAMINATION: Reveals a white count of 9.1, hemoglobin of 10, platelets of 287. Chemistry reveals a BUN of 16, creatinine 0.4. Procalcitonin is 6.7. Urinalysis is noted. Microbiology reveals blood cultures no growth, urine cultures no growth. Review of orders reveals the patient to be on prednisone. ASSESSMENT AND PLAN: This is a 71-year-old male with sepsis with acute bronchitis, persistent upper lobe cavitary lesion, history of severe sepsis, end-stage chronic obstructive lung disease, heavy smoker, esophageal cancer, coronary artery disease, currently now off of antibiotics. The patient has completed 7 days of meropenem and doxycycline. The patient is at risk for developing nosocomial infections, and the patient is on prednisone. We will follow closely with you. Kwame Horta MD
[2017-04-01] MEDS: Sucralfate 1 gm/10 ml Oral Susp UD PO SCH ×2 (06:29→18:22)
[2017-04-01] MEDS: Pantoprazole 40 mg EC Tab PO SCH (06:29)
[2017-04-01] MEDS: Acetylcysteine 20% Inhal Soln (4ml) IH SCH (08:08)
[2017-04-01] MEDS: Levalbuterol 0.63 MG/3 ML Inhal Soln UD IH PRN ×3 (08:08→20:43)
--- NOTE | 2017-04-01 08:35 | PN ---
DATE: 03/30/2017 CONSULT FOR: Dr. Gardner; Dr. Osullivan covering. SUBJECTIVE: The patient is lying in bed. He remains dyspneic at rest. He is able to tolerate a pureed diet. He denies any symptoms of aspiration. OBJECTIVE: VITAL SIGNS: Reveal a temperature of 97.3, blood pressure 133/77, heart rate 98. HEENT: Reveal sclerae to be white. Conjunctivae pink. NECK: Supple. CHEST: Reveal distant breath sounds with diffuse rhonchi. HEART: Reveals a mild tachycardia. ABDOMEN: Soft, nontender. EXTREMITIES: Show no edema. LABORATORY DATA: Reveal hemoglobin of 10.1 from 03/28/2017. No new chemistries are available. IMPRESSION: 1. Exacerbation of chronic obstructive pulmonary disease, possible pneumonia. 2. History of esophageal cancer with esophageal stricture. RECOMMENDATIONS: Continue current treatment including Protonix 40 mg once a day and sucralfate 1 gm twice a day. Brandon Osullivan MD
[2017-04-01 08:55] LABS: HEMOGLOBIN 9.9 g/dL (14.0-18.0); MEAN CELL VOLUME 87.5 fl (80.0-105.0); MEAN CORPUSCULAR HEMOGLOBIN 28.1 pg (25.0-35.0); MEAN CORPUSCULAR HGB CONC 32.1 g/dl (31.0-37.0); MEAN PLATELET VOLUME 9.5 fl (7.0-11.0); RBC 3.52 10^6/uL (3.5-6.1); RED CELL DISTRIBUTION WIDTH 16.6 % (11.5-14.5); WHITE BLOOD COUNT 10.6 10^3/ul (4.5-11.0)
[2017-04-01 09:06] LABS: ALB/GLOB RATIO 1.3 (1.1-1.8); ALBUMIN 3.1 g/dL (3.0-4.8); ALT/SGPT 31 U/L (7-56); AST/SGOT 17 U/L (17-59); BLOOD UREA NITROGEN 15 mg/dL (7-21); CALCIUM 9.9 mg/dL (8.4-10.5); GFR AFRICAN-AMERICAN > 60; GFR NON-AFRICAN AMERICAN > 60
--- NOTE | 2017-04-01 09:58 | CP.PCM.PN ---
Subjective - Date & Time of Evaluation Date of Evaluation: 04/01/17 Time of Evaluation: 09:53 - Subjective Subjective: Patient seen and examined at bedside. Patient with no overnight events. Patient states breathing is mildly improved, but cough remains consistent. No other complaints at this time. Denies chest pain, nausea, vomiting, diarrhea, headache. Objective - Vital Signs/Intake and Output Vital Signs (last 24 hours): Temp Pulse Resp BP Pulse Ox 97.6 F 76 20 128/68 97 04/01/17 06:00 04/01/17 06:00 04/01/17 06:00 04/01/17 06:00 04/01/17 06:00 Intake and Output: 04/01/17 04/01/17 06:59 18:59 Intake Total 540 0 Output Total 300 600 Balance 240 -600 - Medications Medications: Current Medications Acetaminophen (Tylenol 325mg Tab) 650 mg PO Q6H PRN PRN Reason: Fever >100.4 F Last Admin: 03/28/17 16:54 Dose: 650 mg Acetylcysteine (Acetylcysteine 20%) 3 ml IH Q12 [facility] Last Admin: 04/01/17 08:08 Dose: 3 ml Alprazolam (Xanax) 0.25 mg PO Q12H PRN; Protocol PRN Reason: Anxiety Stop: 04/06/17 19:16 Last Admin: 03/31/17 21:48 Dose: 0.25 mg Aspirin (Ecotrin) 81 mg PO DAILY [facility] Last Admin: 03/31/17 10:37 Dose: 81 mg Benzocaine/Menthol (Cepacol Sore Throat) 1 carlos MT Q3H PRN PRN Reason: Sore Throat Last Admin: 03/31/17 21:43 Dose: 1 carlos Benzonatate (Tessalon Perles) 200 mg PO TID [facility] Last Admin: 03/31/17 17:06 Dose: 200 mg Diazepam (Valium) 5 mg PO HS PRN; Protocol PRN Reason: Insomnia Last Admin: 03/31/17 21:43 Dose: 5 mg Enoxaparin Sodium (Lovenox) 40 mg SC DAILY [facility] PRN Reason: Protocol Last Admin: 03/31/17 17:06 Dose: 40 mg Escitalopram Oxalate (Lexapro) 5 mg PO DAILY [facility] Last Admin: 03/31/17 10:37 Dose: 5 mg Guaifenesin (Mucinex La) 600 mg PO BID [facility] Last Admin: 03/31/17 17:06 Dose: 600 mg Levalbuterol HCl (Xopenex) 0.63 mg IH [id number] PRN PRN Reason: Shortness of Breath Last Admin: 04/01/17 08:08 Dose: 0.63 mg Loratadine (Claritin) 10 mg PO DAILY [facility] Last Admin: 03/31/17 10:37 Dose: 10 mg Megestrol Acetate (Megace) 400 mg PO DAILY [facility] Last Admin: 03/31/17 10:36 Dose: 400 mg Montelukast Sodium (Singulair) 10 mg PO HS [facility] Last Admin: 03/31/17 21:42 Dose: 10 mg Non-Formulary Medication (Quinine Sulfate) 324 mg PO HS [facility] Last Admin: 03/31/17 22:00 Dose: Not Given Pantoprazole Sodium (Protonix Ec Tab) 40 mg PO 0600 [facility] Last Admin: 04/01/17 06:29 Dose: 40 mg Prednisone (Prednisone Tab) 40 mg PO DAILY [facility] Sodium Chloride (Chaves Nasal [place]) 0 ml NS Q4 [facility] Last Admin: 04/01/17 04:00 Dose: Not Given Sucralfate (Carafate Oral Susp) 1 gm PO 0600,1600 [facility] Last Admin: 04/01/17 06:29 Dose: 1 gm Tamsulosin HCl (Flomax) 0.4 mg PO DAILY [facility] Last Admin: 03/31/17 10:37 Dose: 0.4 mg Tiotropium [place] (Spiriva) 18 mcg IH DAILY [facility] Last Admin: 03/31/17 10:36 Dose: 18 mcg Tramadol HCl (Ultram) 50 mg PO Q8H PRN PRN Reason: Pain, moderate (4-7) Last Admin: 03/31/17 21:43 Dose: 50 mg - Labs Labs: 04/01/17 08:30 04/01/17 08:30 PT 10.3 SECONDS (9.4-12.5) 03/22/17 16:05 INR 0.91 (0.93-1.08) L 03/22/17 16:05 APTT 31.6 Seconds (25.1-36.5) 03/22/17 16:05 - Constitutional Appears: Non-toxic, No Acute Distress - Head Exam Head Exam: ATRAUMATIC, NORMAL INSPECTION, NORMOCEPHALIC - ENT Exam ENT Exam: Mucous Membranes Moist - Respiratory Exam Respiratory Exam: Decreased Breath Sounds, Wheezes (b/l ). absent: Rales, Rhonchi, Respiratory Distress - Cardiovascular Exam Cardiovascular Exam: RRR, +S1, +S2 - GI/Abdominal Exam GI & Abdominal Exam: Soft, Normal Bowel Sounds. 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 Patient is currently being followed by pulmonology who have changed patient from Solumedrol to daily Prednisone, but at an increased dosage from what he previously took. Patient has finished 7 day course of Merrem and Doxycycline as per ID. No further antibiotics at this time. Will continue to monitor patients respiratory status. Will also consider TCU evaluation. Plan discussed with Dr. Ferreira. Gianna, PGY-2
[2017-04-01] MEDS: Megestrol Acetate 40 mg/ml Cup PO SCH (10:19)
[2017-04-01] MEDS: Enoxaparin 40 mg Syringe SC SCH (10:19)
[2017-04-01] MEDS: Tiotropium 18 mcg Cap For Inhalation IH SCH (10:19)
[2017-04-01] MEDS: Benzocaine/Menthol (Cepacol) Lozenge MT PRN ×2 (10:19→21:35)
[2017-04-01] MEDS: guaiFENesin 600 mg ER Tab PO SCH ×2 (10:22→18:22)
--- NOTE | 2017-04-01 16:23 | CP.PCM.PN ---
Subjective - Date & Time of Evaluation Date of Evaluation: 04/01/17 Time of Evaluation: 10:00 - Subjective Subjective: Seen and examined at the bedside earlier today, chart reviewed. Patient tolerating breakfast no complaint of dysphagia although yesterday patient stated that he had felt that something was stuck in his chest throat and coughed up some eggs. The added was.. No further episodes. Denies nausea or vomiting. Continues to have regular formed bowel movements no report of overt GI bleed. Does report occasional shortness of breath on continuous O2. No respiratory distress. Denies fever or chills. Objective - Vital Signs/Intake and Output Vital Signs (last 24 hours): Temp Pulse Resp BP Pulse Ox 98.1 F 96 H 20 135/78 97 04/01/17 12:00 04/01/17 12:00 04/01/17 12:00 04/01/17 12:00 04/01/17 06:00 Intake and Output: 04/01/17 04/01/17 06:59 18:59 Intake Total 540 0 Output Total 300 600 Balance 240 -600 - Medications Medications: Current Medications Acetaminophen (Tylenol 325mg Tab) 650 mg PO Q6H PRN PRN Reason: Fever >100.4 F Last Admin: 03/28/17 16:54 Dose: 650 mg Acetylcysteine (Acetylcysteine 20%) 3 ml IH Q12 [facility] Last Admin: 04/01/17 08:08 Dose: 3 ml Alprazolam (Xanax) 0.25 mg PO Q12H PRN; Protocol PRN Reason: Anxiety Stop: 04/06/17 19:16 Last Admin: 03/31/17 21:48 Dose: 0.25 mg Aspirin (Ecotrin) 81 mg PO DAILY [facility] Last Admin: 04/01/17 10:19 Dose: 81 mg Benzocaine/Menthol (Cepacol Sore Throat) 1 carlos MT Q3H PRN PRN Reason: Sore Throat Last Admin: 04/01/17 10:19 Dose: 1 carlos Benzonatate (Tessalon Perles) 200 mg PO TID [facility] Last Admin: 04/01/17 15:19 Dose: 200 mg Diazepam (Valium) 5 mg PO HS PRN; Protocol PRN Reason: Insomnia Last Admin: 03/31/17 21:43 Dose: 5 mg Enoxaparin Sodium (Lovenox) 40 mg SC DAILY [facility] PRN Reason: Protocol Last Admin: 04/01/17 10:19 Dose: 40 mg Escitalopram Oxalate (Lexapro) 5 mg PO DAILY [facility] Last Admin: 04/01/17 10:19 Dose: 5 mg Guaifenesin (Mucinex La) 600 mg PO BID [facility] Last Admin: 04/01/17 10:22 Dose: 600 mg Levalbuterol HCl (Xopenex) 0.63 mg IH [id number] PRN PRN Reason: Shortness of Breath Last Admin: 04/01/17 13:39 Dose: 0.63 mg Loratadine (Claritin) 10 mg PO DAILY [facility] Last Admin: 04/01/17 10:19 Dose: 10 mg Megestrol Acetate (Megace) 400 mg PO DAILY [facility] Last Admin: 04/01/17 10:19 Dose: 400 mg Montelukast Sodium (Singulair) 10 mg PO HS [facility] Last Admin: 03/31/17 21:42 Dose: 10 mg Non-Formulary Medication (Quinine Sulfate) 324 mg PO HS [facility] Last Admin: 03/31/17 22:00 Dose: Not Given Pantoprazole Sodium (Protonix Ec Tab) 40 mg PO 0600 [facility] Last Admin: 04/01/17 06:29 Dose: 40 mg Prednisone (Prednisone Tab) 40 mg PO DAILY [facility] Last Admin: 04/01/17 10:19 Dose: 40 mg Sodium Chloride ([place] Nasal [place]) 0 ml NS Q4 [facility] Last Admin: 04/01/17 12:11 Dose: Not Given Sucralfate (Carafate Oral Susp) 1 gm PO 0600,1600 [facility] Last Admin: 04/01/17 06:29 Dose: 1 gm Tamsulosin HCl (Flomax) 0.4 mg PO DAILY [facility] Last Admin: 04/01/17 10:20 Dose: 0.4 mg Tiotropium [place] (Spiriva) 18 mcg IH DAILY [facility] Last Admin: 04/01/17 10:19 Dose: 18 mcg Tramadol HCl (Ultram) 50 mg PO Q8H PRN PRN Reason: Pain, moderate (4-7) Last Admin: 03/31/17 21:43 Dose: 50 mg - Labs Labs: 04/01/17 08:30 04/01/17 08:30 PT 10.3 SECONDS (9.4-12.5) 03/22/17 16:05 INR 0.91 (0.93-1.08) L 03/22/17 16:05 APTT 31.6 Seconds (25.1-36.5) 03/22/17 16:05 - Constitutional Appears: No Acute Distress, Cachectic - Eye Exam Eye Exam: Normal appearance. absent: Scleral icterus - ENT Exam ENT Exam: Mucous Membranes Moist - Respiratory Exam Respiratory Exam: Rhonchi, Wheezes, NORMAL BREATHING PATTERN. absent: Respiratory Distress - Cardiovascular Exam Cardiovascular Exam: +S1, +S2 - GI/Abdominal Exam GI & Abdominal Exam: Soft, Normal Bowel Sounds. absent: Guarding, Tenderness, Organomegaly, Rebound - Extremities Exam Extremities Exam: absent: Calf Tenderness, Pedal Edema - Neurological Exam Neurological Exam: Alert, Awake, Oriented x3 - Skin Skin Exam: Dry, Warm Assessment and Plan - Assessment and Plan (Free Text) Assessment: Assessment: End-stage chronic obstructive pulmonary disease Esophageal cancer with stricture Fever Status post recent treatment for pneumonia and cavitary lesion Plan: Continue pured diet Aspiration precaution continue PPI On Carafate On Prednisone As per ID, pulmonary, oncology Case discussed w/ Dr. karla Gardner.
--- NOTE | 2017-04-01 21:44 | PN ---
DATE: 04/01/2017 SUBJECTIVE: The patient is in bed in no acute distress, nontoxic. PHYSICAL EXAMINATION: VITAL SIGNS: Temperature is 98, blood pressure is 130/70, respiratory rate of 20, heart rate of 96. HEENT: Examination of HEENT is unremarkable. NECK: Supple. LUNGS: Have decreased breath sounds. HEART: Normal S1, S2. ABDOMEN: Soft, nontender. LABORATORY EXAMINATION: Reveals a white count of 10, hemoglobin of 9, platelets of 271. Chemistries are noted. BUN of 15, creatinine of 0.5, procalcitonin 6.7. Microbiology is noted. REVIEW OF ORDERS: Reveals the patient to be off of antibiotics. ASSESSMENT/PLAN: This is a 71-year-old male seen earlier this morning with a history of stage III carcinoma of the esophagus with right upper lobe cavitary lesion and chronic obstructive lung lesion, had completed a course of antibiotics, meropenem and doxycycline. Acute bronchitis with sepsis and coronary artery disease, off of antibiotics, afebrile; however, very high risk of developing nosocomial infections. The patient is also on prednisone. Kwame Horta MD
[2017-04-01] MEDS: QUININE SULFATE 324 MG PO SCH (22:00)
--- NOTE | 2017-04-01 23:24 | PN ---
ADDENDUM This is an addendum to a progress note performed by ERIKA Olivera. I personally examined the patient and reviewed his laboratory data. I agree with Ceci Bhardwaj' assessment and recommendations. The patient has stable esophageal cancer with esophageal stricture. He is tolerating pureed diet. He is improving from his exacerbation of COPD. Brandon Osullivan MD
--- NOTE | 2017-04-01 23:40 | PN ---
DATE: 04/01/2017 REFERRING PHYSICIAN: SUBJECTIVE: He is out of bed to chair. is at bedside. Night was unremarkable. Feels okay. Disease is baseline, still has short of breath with exertion. No nausea. No vomiting. No diarrhea. No leg pain or leg swelling. PHYSICAL EXAMINATION: VITAL SIGNS: Temperature 98, heart rate is 112, respiratory rate is 22, blood pressure 119/67, and pulse ox 94% on nasal cannula while awake. HEENT: Moist mucous membranes. Crowded airway. NECK: Supple. No JVD. LUNGS: Has poor airflow, prolonged expiratory phase. HEART: S1 and S2. ABDOMEN: Soft and nontender. No organomegaly. EXTREMITIES: There is no edema. NEUROLOGIC: Awake and alert. Follows simple commands. MEDICATIONS: He is on Mucomyst 20% 3 mL inhaled twice a day, Carafate 1 gm twice a day, Cepacol lozenges q.2 hours p.r.n., Claritin 10 mg daily, Ecotrin 81 mg daily, Flomax 0.4 mg daily, Lexapro 5 mg daily, Lovenox 40 mg daily, Megace 400 mg daily, Mucinex is 600 mg twice a day, nasal saline two sprays each nostril q.4 hours, prednisone 40 mg daily, Protonix 40 mg daily, quinine sulfate 324 mg at bedtime, Singulair 10 mg daily, Spiriva capsule inhaler daily, Tessalon Perles 200 mg 3 times a day, Tylenol p.r.n., Ultram 50 mg q.8 hours p.r.n., Valium 5 mg at bedtime p.r.n., Xanax 0.25 mg q.12 hours p.r.n., and Xopenex 0.63 q.6 hours p.r.n. LABORATORY DATA: Reviewed and shows hemoglobin 9.9, hematocrit 30.8, WBC 10.6, and platelets are 271,000. Sodium 134, potassium 3.9, chloride 95, bicarbonate 34, BUN 15, creatinine 0.5, calcium is 9.9, AST 17, ALT 31, alkaline phosphatase is 43, albumin is 3.1. IMPRESSION AND PLAN: Exacerbation of chronic obstructive lung disease, right upper lobe cavitary lesion, also has high procalcitonin, may have pneumonia, esophageal cancer, may have sleep apnea syndrome. Case discussed with the patient's at bedside. All the questions answered. Also spoke to nursing staff. Considered discharge planning. Also spoke to Dr. Ferreira especially because of the flu, this may be better off at home. We will discharge him on prednisone 40 mg for 3 days and 20 mg daily. The patient will be seen by Dr. Ferreira as the outpatient, should also follow up with Gastrointestinal. We are trying to make arrangements to get pulmonary function testing as an outpatient and also need a 10-day sleep study. He had been using BiPAP while at hospital and doing well last night, used 6-1/2 hours. We will follow with you. Jesika Srivastava MD
[2017-04-02] MEDS: Sucralfate 1 gm/10 ml Oral Susp UD PO SCH (06:40)
[2017-04-02] MEDS: Pantoprazole 40 mg EC Tab PO SCH (06:40)
[2017-04-02] MEDS: Acetylcysteine 20% Inhal Soln (4ml) IH SCH (07:55)
[2017-04-02] MEDS: Levalbuterol 0.63 MG/3 ML Inhal Soln UD IH PRN (07:56)
[2017-04-02 08:26] LABS: MEAN CELL VOLUME 86.1 fl (80.0-105.0); MEAN CORPUSCULAR HEMOGLOBIN 27.7 pg (25.0-35.0); MEAN CORPUSCULAR HGB CONC 32.2 g/dl (31.0-37.0); MEAN PLATELET VOLUME 9.1 fl (7.0-11.0); RBC 3.61 10^6/uL (3.5-6.1); RED CELL DISTRIBUTION WIDTH 16.2 % (11.5-14.5); WHITE BLOOD COUNT 8.4 10^3/ul (4.5-11.0)
[2017-04-02 08:50] LABS: ALT/SGPT 31 U/L (7-56); AST/SGOT 17 U/L (17-59); BLOOD UREA NITROGEN 13 mg/dL (7-21); CALCIUM 9.6 mg/dL (8.4-10.5); GFR AFRICAN-AMERICAN > 60; GFR NON-AFRICAN AMERICAN > 60
[2017-04-02 08:56] LABS: ALB/GLOB RATIO 1.2 (1.1-1.8)
[2017-04-02] MEDS: Benzocaine/Menthol (Cepacol) Lozenge MT PRN (12:46)
[2017-04-02] MEDS: Enoxaparin 40 mg Syringe SC SCH (12:47)
[2017-04-02] MEDS: Tiotropium 18 mcg Cap For Inhalation IH SCH (12:48)
[2017-04-02] MEDS: Megestrol Acetate 40 mg/ml Cup PO SCH (12:49)
[2017-04-02 14:26] VITALS: BP 129/73; PULSE 94; RESP 20; TEMP 97.6
--- NOTE | 2017-04-02 15:44 | CP.PCM.DIS ---
Provider - Provider Date of Admission: 03/22/17 17:48 Attending physician: Abhijeet Vigil MD Primary care physician: María Ferreira MD Consults: Pulm - Dr. Carola TELLO - Dr. Shi CROCKETT - Dr. Stephens Time Spent in preparation of Discharge (in minutes): 45 Diagnosis - Discharge Diagnosis (1) COPD exacerbation Status: Resolved (2) Anemia Status: Chronic (3) Esophageal cancer Status: Chronic Priority: High (4) Lung abscess Status: Chronic Priority: Medium Hospital Course - Lab Results Lab Results: Micro Results 03/22/17 17:55 Urine,Clean Catch Urine Culture - Final No Growth (<1,000 CFU/ML) Most Recent Lab Values WBC 8.4 10^3/ul (4.5-11.0) D 04/02/17 08:10 RBC 3.61 10^6/uL (3.5-6.1) 04/02/17 08:10 Hgb 10.0 g/dL (14.0-18.0) L 04/02/17 08:10 Hct 31.1 % (42.0-52.0) L 04/02/17 08:10 MCV 86.1 fl (80.0-105.0) 04/02/17 08:10 MCH 27.7 pg (25.0-35.0) 04/02/17 08:10 MCHC 32.2 g/dl (31.0-37.0) 04/02/17 08:10 RDW 16.2 % (11.5-14.5) H 04/02/17 08:10 Plt Count 261 10^3/uL (120.0-450.0) 04/02/17 08:10 MPV 9.1 fl (7.0-11.0) 04/02/17 08:10 Gran % 87.4 % (50.0-68.0) H 03/28/17 06:30 Lymph % (Auto) 6.3 % (22.0-35.0) L 03/28/17 06:30 [place] % (Auto) 6.2 % (1.0-6.0) H 03/28/17 06:30 Eos % (Auto) 0.0 % (1.5-5.0) L 03/28/17 06:30 Baso % (Auto) 0.1 % (0.0-3.0) 03/28/17 06:30 Gran # 7.93 (1.4-6.5) H 03/28/17 06:30 Lymph # 0.6 (1.2-3.4) L 03/28/17 06:30 Douglas # 0.6 (0.1-0.6) 03/28/17 06:30 Eos # 0.0 (0.0-0.7) 03/28/17 06:30 Baso # 0.01 K/mm3 (0.0-2.0) 03/28/17 06:30 Neutrophils % (Manual) 84 % (50.0-70.0) H 03/22/17 16:05 Band Neutrophils % 8 % (0-2) H 03/22/17 16:05 Lymphocytes % (Manual) 4 % (22.0-35.0) L 03/22/17 16:05 Monocytes % (Manual) 3 % (1.0-6.0) 03/22/17 16:05 Eosinophils % (Manual) 1 % (0.0-3.0) 03/22/17 16:05 Platelet Evaluation Normal (NORMAL) 03/22/17 16:05 Anisocytosis (manual) 1+ 03/22/17 16:05 PT 10.3 SECONDS (9.4-12.5) 03/22/17 16:05 INR 0.91 (0.93-1.08) L 03/22/17 16:05 APTT 31.6 Seconds (25.1-36.5) 03/22/17 16:05 Sodium 133 mmol/L (132-148) 04/02/17 08:10 Potassium 3.9 mmol/L (3.6-5.0) 04/02/17 08:10 Chloride 95 mmol/L (98-107) L 04/02/17 08:10 Carbon Dioxide 34 mmol/L (21-33) H 04/02/17 08:10 Anion Gap 8 (10-20) L 04/02/17 08:10 BUN 13 mg/dL (7-21) 04/02/17 08:10 Creatinine 0.5 mg/dl (0.8-1.5) L 04/02/17 08:10 Est GFR ( Amer) > 60 04/02/17 08:10 Est GFR (Non-Af Amer) > 60 04/02/17 08:10 Random Glucose 81 mg/dL (70-110) 04/02/17 08:10 Calcium 9.6 mg/dL (8.4-10.5) 04/02/17 08:10 Total Bilirubin 0.7 mg/dL (0.2-1.3) 04/02/17 08:10 AST 17 U/L (17-59) 04/02/17 08:10 ALT 31 U/L (7-56) 04/02/17 08:10 Alkaline Phosphatase 40 U/L (38-126) 04/02/17 08:10 Total Creatine Kinase < 20 U/L (35-230) L 03/22/17 16:05 Troponin I < 0.01 ng/mL 03/22/17 16:05 NT-Pro-B Natriuret Pep 119 pg/mL (0-450) 03/22/17 16:05 Total Protein 5.4 g/dL (5.8-8.3) L 04/02/17 08:10 Albumin 3.0 g/dL (3.0-4.8) 04/02/17 08:10 Globulin 2.5 gm/dL 04/02/17 08:10 Albumin/Globulin Ratio 1.2 (1.1-1.8) 04/02/17 08:10 Procalcitonin 6.70 NG/ML (0.19-0.49) H 03/25/17 12:30 Urine Color Yellow (YELLOW) 03/22/17 17:55 Urine Appearance Sl cloudy (CLEAR) 03/22/17 17:55 Urine pH 6.0 (4.7-8.0) 03/22/17 17:55 Ur Specific [place] 1.025 (1.005-1.035) 03/22/17 17:55 Urine Protein Trace mg/dL (<30 mg/dL) H 03/22/17 17:55 Urine Glucose (UA) Negative mg/dL (NEGATIVE) 03/22/17 17:55 Urine Ketones 15 mg/dL (NEGATIVE) H 03/22/17 17:55 Urine Blood Negative (NEGATIVE) 03/22/17 17:55 Urine Nitrate Negative (NEGATIVE) 03/22/17 17:55 Urine Bilirubin Small (NEGATIVE) H 03/22/17 17:55 Urine Urobilinogen 0.2 E.U./dL (<1 E.U./dL) 03/22/17 17:55 Ur Leukocyte Esterase Trace Matthew/uL (NEGATIVE) H 03/22/17 17:55 Urine RBC 0 - 2 /hpf (0-2) 03/22/17 17:55 Urine WBC 2 - 5 /hpf (0-6) 03/22/17 17:55 Ur Epithelial Cells 4 - 5 /hpf (0-5) 03/22/17 17:55 Urine Bacteria Few (NEG) 03/22/17 17:55 - Hospital Course Hospital Course: 71 y/o man with past medical history of 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 Patient was placed on Merrem and Doxycycline as per ID. Patient finished full 7 day course of medications. Patient was also seen by GI who stated his esophageal stricture secondary to his cancer was stable, with no obvious worsening at this time. Patient was also evaluated by Pulmonology who recommended patient increase his daily prednisone to 40 mg for 3 days upon discharge and then continue his normal home dose of 20 mg. Patient is also to follow up for a sleep study. Patient will also likely receive a PET scan on follow up with Dr. Ferreira. Patient sent home with prescriptions for his medications and told to follow up with his PMD within 1 week. Discharge Exam - Head Exam Head Exam: ATRAUMATIC, NORMAL INSPECTION, NORMOCEPHALIC - ENT Exam ENT Exam: Mucous Membranes Moist, Normal Exam - Respiratory Exam Respiratory Exam: Decreased Breath Sounds, Wheezes. absent: Rales, Rhonchi - Cardiovascular Exam Cardiovascular Exam: RRR, +S1, +S2 - GI/Abdominal Exam GI & Abdominal Exam: Normal Bowel Sounds, Unremarkable. absent: Tenderness - Extremities Exam Extremities exam: normal inspection - Neurological Exam Neurological exam: Alert, CN II-XII Intact, Oriented x3 - Psychiatric Exam Psychiatric exam: Normal Affect, Normal Mood - Skin Skin Exam: Intact, Normal Color, Warm Discharge Plan - Discharge Medications Prescriptions: ALPRAZolam [Xanax] 0.25 mg PO BID PRN #60 tab PRN Reason: Anxiety Megestrol Acetate [Megace] 400 mg PO DAILY 30 Days #30 cup Quinine Sulfate [Qualaquin] 324 mg PO DAILY #30 capsule Tamsulosin [Flomax] 0.8 mg PO DAILY #30 cap - Follow Up Plan Condition: GUARDED Disposition: HOME/ ROUTINE Instructions: COPD (Chronic Obstructive Pulmonary Disease) (DC) Additional Instructions: Medication scripts provided in chart Please follow up with your PMD within 1 week Please follow up with Dr. Srivastava within 2 weeks to schedule sleep study Please return to hospital if symptoms begin to severely worsen Referrals: María Ferreira MD [Primary Care Provider] - Jesika Srivastava MD [Staff Provider] -
[2017-04-02 16:28] VITALS: O2SAT 91
--- NOTE | 2017-04-02 18:51 | PN ---
DATE: 04/02/2017 PULMONARY PROGRESS NOTE REFERRING PHYSICIAN: Abhijeet Vigil MD SUBJECTIVE: Patient is lying in the bed on noninvasive ventilation, seen by me customer service and sales consultant. Night was unremarkable. Feels better. Decreased cough and shortness of breath. No nausea. No vomiting. No diarrhea. No leg pain or leg swelling. OBJECTIVE: GENERAL: In no acute distress. VITAL SIGNS: Temperature is 98, heart rate is 94, respiratory rate is 20, blood pressure is 129/73, and pulse oximetry 96% on 35% oxygen. HEENT: Moist mucous membranes. No ulcer or thrush noted. NECK: Supple. No JVD. LUNGS: Has a prolong expiratory phase. HEART: S1 and S2. ABDOMEN: Soft and nontender. No organomegaly. EXTREMITIES: There is no edema. NEUROLOGIC: Awake, alert. Follow simple commands. MEDICATIONS: He is on Mucomyst 20% inhaled twice a day, Carafate 1 g twice a day, Cepacol lozenges q. 3 hours p.r.n., Claritin 10 mg daily, Ecotrin 81 mg daily, Flomax 0.4 mg daily, Lexapro 5 mg daily, Lovenox 40 mg subcutaneous daily, Megace 400 mg daily, Mucinex [place] 600 mg twice a day, prednisone 40 mg daily, Protonix 40 mg daily, quinine 324 mg at bedtime, Singulair 10 mg daily, Spiriva 18 mcg inhaled daily, Tessalon Perles 200 mg three times a day, Tylenol p.r.n., Ultram 50 mg q. 8 hours p.r.n., Valium 5 mg at bedtime p.r.n., Xanax 0.25 mg q. 12 hours, and Xopenex 0.63 q. 6 hours p.r.n. LABORATORY DATA: Shows hemoglobin 10.0, hematocrit 31.1, WBC 8.4, and platelet is 261. Sodium 133, potassium 2.9, chloride 95, bicarbonate 34, BUN 13, creatinine 0.5, glucose 81, calcium is 9.6. AST 17, ALT 31, alk phos is 40, albumin is 3.0. Microbiology: Blood culture, urine culture, there is no growth. IMPRESSION AND PLAN: Exacerbation of chronic obstructive lung disease, right upper lobe cavitary mass, pneumonia versus tumor, has esophageal cancer, may have sleep apnea syndrome, on modified diet because of esophageal constriction. Case discussed with Dr. Ferreira this afternoon. Patient is seen by me early this morning. Patient can be discharged home on tapered dose of steroid, inhaled bronchodilator. We will do 10-day sleep study upon discharge as an outpatient, PFT as an outpatient. We will follow with you. Jesika Srivastava MD
--- NOTE | 2017-04-03 08:24 | PN ---
DATE: 04/02/2017 SUBJECTIVE: Patient is in bed in no acute distress, nontoxic on exam. PHYSICAL EXAMINATION VITAL SIGNS: Temperature is 98, blood pressure is 120/70, respiratory rate is 20, heart rate of 90. HEENT: Unremarkable. NECK: Supple. LUNGS: Decreased breath sounds. HEART: Normal S1, S2. ABDOMEN: Soft. LABORATORY EXAMINATION: Reveals the patient's white count is 8.4, hemoglobin of 10, BUN 13, creatinine of 0.5, procalcitonin is 6.7. Microbiology is noted. Cultures are negative. ASSESSMENT AND PLAN: This is a 71-year-old male who was seen early this morning at 372, bed 2, stage III cancer of the esophagus, right upper lobe cavitary lesion, chronic obstructive lung disease, completed course of antibiotics, meropenem and doxycycline, with sepsis, acute bronchitis, and coronary artery disease, currently off of antibiotics. Patient is at risk for developing nosocomial infection, possible discharge today. Kwame Horta MD
== END 2017-04-02 17:03 | disposition home health service (06) | DRG 190 ==
LOC: ED 15:49 → ERH 17:48 → 3RSO 21:17 → 3RNO 03-25 20:48 → 3RSO 03-25 20:49
PROVIDERS: ADMIT Family Medicine; ATTEND Family Medicine
DX: J44.1 Chronic obstructive pulmonary disease with (acute) exacerbation (principal); J85.1 Abscess of lung with pneumonia; R64 Cachexia; C15.9 Malignant neoplasm of esophagus, unspecified; E22.2 Syndrome of inappropriate secretion of antidiuretic hormone; J18.9 Pneumonia, unspecified organism; K22.2 Esophageal obstruction; Z99.81 Dependence on supplemental oxygen; D64.9 Anemia, unspecified; G25.81 Restless legs syndrome; G47.30 Sleep apnea, unspecified; Z85.820 Personal history of malignant melanoma of skin; Z87.01 Personal history of pneumonia (recurrent); G89.29 Other chronic pain; I25.10 Atherosclerotic heart disease of native coronary artery without angina pectoris; K21.9 Gastro-esophageal reflux disease without esophagitis; N40.0 Benign prostatic hyperplasia without lower urinary tract symptoms; J44.0 Chronic obstructive pulmonary disease with (acute) lower respiratory infection; J20.9 Acute bronchitis, unspecified; Z79.52 Long term (current) use of systemic steroids; Z87.891 Personal history of nicotine dependence; Z90.49 Acquired absence of other specified parts of digestive tract; Z92.3 Personal history of irradiation; Z98.42 Cataract extraction status, left eye; Z98.41 Cataract extraction status, right eye

== ENCOUNTER 2017-04-09 16:59 | Inpatient (IN) | payer OTHER, MEDICARE ==
[2017-04-09 17:12] VITALS: BMI 17.7
--- NOTE | 2017-04-09 17:17 | ED PDOC ---
Arrival/HPI - General Time Seen by Provider: 04/09/17 17:03 Historian: Patient, Spouse, EMS - History of Present Illness Narrative History of Present Illness (Text): 04/09/17 17:14 A 71 year old male, whose past medical history includes COPD on home O2 and esophageal cancer s/p radiation, brought into the emergency department by EMS for chest pain and shortness of breath. Patient has reportedly developed left sided chest pain this morning, and developed progressive shortness of breath. Denies pleuritic pain. Denies fever or trauma. Denies hematemesis. Deneis chills. Denies abdominal pain, nausea or vomiting. PMD: Dr. Ruiz Oncologist: Dr. Ferreira Pipe Machine Operator: Dr. Srivastava Time/Duration: Other (today) Symptom Course: Unchanged Context: Home Past Medical History - Provider Review Nursing Documentation Reviewed: Yes - Infectious Disease Hx of Infectious Diseases: None - Tetanus Immunization Tetanus Immunization: Unknown - Cardiac Hx Cardiac Disorders: Yes Hx Pacemaker: No - Pulmonary Hx Respiratory Disorders: Yes (SMOKED 1-2 PPD QUIT 1999) Hx Chronic Obstructive Pulmonary Disease (COPD): Yes Hx Emphysema: Yes Hx Pneumonia: Yes - Neurological Hx Neurological Disorder: Yes (RESTLESS LEG SYNDROME) - HEENT Hx HEENT Disorder: Yes (reading glasses) Hx Cataracts: Yes (b/l cat sx) Other/Comment: voice hoarse - Renal Hx Renal Disorder: No - Endocrine/Metabolic Hx Endocrine Disorders: No - Hematological/Oncological Hx Blood Disorders: Yes Hx Anemia: Yes Hx Cancer: Yes (esophogeal CA COMPLETED RADIATION) - Integumentary Hx Dermatological Disorder: Yes Hx Basal Cell Carcinoma: Yes (removed from back) Hx Melanoma: Yes (removed from back) Other/Comment: pt had shingles in 10/2015 r buttock around to r groin rash faded , "some" residual pain on lyrica (previous triage) - Musculoskeletal/Rheumatological Hx Musculoskeletal Disorders: Yes Hx Arthritis: Yes ("all over") Hx Falls: No - Gastrointestinal Hx Gastrointestinal Disorders: Yes Hx Gastroesophageal Reflux: Yes HX Swallowing Problems: Yes - Genitourinary/Gynecological Hx Genitourinary Disorders: Yes Hx Prostate Problems: Yes (ENLARGED,BPH) - Psychiatric Hx Psychophysiologic Disorder: Yes (INSOMNIA) Hx Anxiety: Yes Hx Depression: Yes Hx Substance Use: No - Surgical History Hx Appendectomy: Yes Hx Mastectomy: No - Anesthesia Hx Anesthesia: Yes Hx Anesthesia Reactions: No Hx Malignant Hyperthermia: No - Suicidal Assessment Feels Threatened In Home Enviroment: No Family/Social History - Physician Review Nursing Documentation Reviewed: Yes Family/Social History: No Known Family HX Smoking Status: Former Smoker Hx Alcohol Use: No Hx Substance Use: No Hx Substance Use Treatment: No Allergies/Home Meds Allergies/Adverse Reactions: Allergies No Known Allergies Allergy (Verified 04/09/17 17:17) Home Medications: Home Meds Medication Instructions Recorded Confirmed Albuterol Sulfate 2.5 mg IH Q6H PRN 12/25/16 04/09/17 Budesonide [Pulmicort Respules] 0.5 mg IH BID 12/25/16 04/09/17 Fluticasone/Salmeterol 500/50 1 puff IH BID 12/25/16 04/09/17 [Advair Diskus 500/50] Multivit,Iron,Min 5/Folic Acid 1 tab PO DAILY 12/25/16 04/09/17 [Strovite Forte Caplet] Pregabalin [Lyrica] 100 mg PO TID 12/25/16 04/09/17 Sucralfate [Carafate Oral Susp] 1 gm PO BID 12/25/16 04/09/17 Tramadol HCl/Acetaminophen 1 tab PO BID 12/25/16 04/09/17 [Tramadol-Acetaminophn 37.5-325] diaZEpam [Valium] 5 mg PO DAILY 12/25/16 04/09/17 Review of Systems - Review of Systems Constitutional: Fatigue. absent: Fevers, Night Sweats Eyes: absent: Vision Changes ENT: Sore Throat, Other (dysphagia). absent: Hearing Changes, Sinus Congestion Respiratory: SOB, Wheezing Cardiovascular: Chest Pain, [place] Gastrointestinal: absent: Abdominal Pain, Diarrhea, Nausea, Vomiting Genitourinary Male: absent: Frequency Musculoskeletal: absent: Back Pain, Neck Pain Skin: absent: Rash Neurological: absent: Headache, Dizziness Endocrine: absent: Polyuria Psychiatric: Anxiety Physical Exam - Physical Exam Narrative Physical Exam (Text): Head: Atraumatic. Normocephalic. Eyes: PERRL. EOMI. Conjunctivae are not pale. ENT: Mucous membranes are moist and intact. Oropharynx is clear and symmetric. No stridor. No drooling. No exudate or abscess. No uvualr deviation. Neck: Supple. Full ROM. No JVD. No lymphadenopathy. Cardiovascular: Tachycardic. Systolic murmur. Pulmonary/Chest: Respiratory distress. Accessory muscle usage. Diffuse wheezing with poor air exchange left lung. [place] left sided anterior chest discomfort. Abdominal: Soft and non-distended. There is no tenderness. No rebound, guarding, or rigidity. No organomegaly. Good bowel sounds. Back: No CVA tenderness. Extremities: No edema. No cyanosis. No clubbing. Full range of motion in all extremities. No calf tenderness. Skin: Skin is pale. No petechiae. No purpura. Neurological: Alert, awake, and oriented. No facial droop. No focal motor or sensory deficits. Psychiatric: Anxious. 04/09/17 23:27 Vital Signs Reviewed: Yes Vital Signs Temp Pulse Resp BP Pulse Ox 04/09/17 21:36 100 H 20 103/64 98 04/09/17 19:43 125 H 20 106/61 97 04/09/17 18:57 125 H 20 109/64 93 L 04/09/17 17:24 97.3 F L 155 H 28 H 118/66 98 Pulse: Tachycardic Respiratory Rate: Tachypneic Appearance: Positive for: Uncomfortable Pain Distress: Mild Mental Status: Positive for: Alert and Oriented X 3 Medical Decision Making ED Course and Treatment: 04/09/17 17:14 Impression: A 71 year old male brought in for chest pain and shortness of breath Differential Diagnosis included but are not limited to: copd, acs, ptx, pneumonia, esophagitis Plan: -- Chest xray -- EKG -- Labs -- Blood and Urine culture -- Urinalysis -- Influenza A B stat -- Duoneb and Solumedrol -- Reassess and disposition Progress Notes: Patient in respiratory distress on arrival. Patient received solumdrol and multiple nebuilzers. He is tachycardic but afebrile. Chest pain is somewhat palpable. NO trauma or fever reported. No crepitus noted. Nebulizers continued and emergency consultation with filter press pumper Dr. Carola bernard as patient recently admitted for COPD. Report Date : 04/09/2017 18:31:49 Procedure: Chest xray Dictator : Kirill Flores MD IMPRESSION: No active disease. No significant interval change compared to the prior examination(s). Patient refuses Bipap or abg initially. Family reports component of anxiety. Morphine administered for pain with improvement. Xanax ordered. Patient agreeable to abg subsquently. Less dyspneic on re-evaluation, states symptoms improving. ON bipap he appears comfortable. Tachycardia improving, suspect due to multiple nebulizers. Dr. Srivastava evaluated patient in ED. I discussed case with Dr. Ferreira, accepts admission to his service under Dr. Juan Vigil. Have endorsed ENT, oropharyngeal re-evaluation as patient with persistent sore throat, although no abscess or drooling noted. No stridor. Symptoms improved but persistent. Requires telemetry due to respiratory distress need for repeated nebulizers. Care turned over to Dr. Ferreira. Leukocytosis noted. Patient has been on steroids and currently afebrile, although this is higher than previous labs. No acute changes noted on cxr, although will cx and initiate iv antibiotics. - Lab Interpretations Lab Results: 04/09/17 17:15 04/09/17 17:15 Lab Results 04/09/17 19:35: pCO2 49 H, pO2 82.0, HCO3 31.1 H, ABG pH 7.41, ABG Total CO2 32.6 H, ABG O2 Saturation 98.1 H, ABG Base Excess 5.3 H, ABG Potassium 3.9, Sodium 135.0, Chloride 101.0, Glucose 191 H, Lactate 2.3 H, FiO2 40.0, Arterial Blood Potassium 3.9 04/09/17 17:16: Influenza Typ A,B (EIA) Negative for flu a/b 04/09/17 17:15: Urine Color Yellow, Urine Appearance Sl cloudy, Urine pH 7.0, Ur Specific [place] 1.025, Urine Protein Trace H, Urine Glucose (UA) Negative, Urine Ketones Negative, Urine Blood Negative, Urine Nitrate Negative, Urine Bilirubin Negative, Urine Urobilinogen 1.0 H, Ur Leukocyte Esterase Negative, Urine RBC 1 - 3, Urine WBC 0 - 2, Ur Epithelial Cells 0 - 2, Amorphous Sediment Moderate, Urine Bacteria Few 04/09/17 17:15: Sodium 137, Chloride 96 L, Potassium 4.4, Carbon Dioxide 32, Anion Gap 13, BUN 17, Creatinine 0.6 L, Est GFR ( Amer) > 60, Est GFR ( Non-Af Amer) > 60, Random Glucose 126 H, Calcium 10.5, Total Bilirubin 0.7, AST 30, ALT 25, Alkaline Phosphatase 60, Lactate Dehydrogenase 456, Total Creatine Kinase < 20 L, Troponin I < 0.01, NT-Pro-B Natriuret Pep 195, Total Protein 7.0 , Albumin 3.9, Globulin 3.1, Albumin/Globulin Ratio 1.3 04/09/17 17:15: pO2 63 H, VBG pH 7.26 L, VBG pCO2 76.0 H*, VBG HCO3 34.1 H, VBG Total CO2 36.4 H, VBG O2 Sat (Calc) 92.5 H, VBG Base Excess 4.5 H, VBG Potassium 4.4, Sodium 136.0, Chloride 97.0 L, Glucose 123 H, Lactate 2.0, FiO2 21.0, Venous Blood Potassium 4.4 04/09/17 17:15: PT 10.3, INR 0.91 L, APTT 28.2 04/09/17 17:15: WBC 24.6 H D, RBC 4.29, Hgb 12.1 L D, Hct 37.1 L, MCV 86.5, MCH 28.2, MCHC 32.6, RDW 16.6 H, Plt Count 324, MPV 9.2, Gran % 86.8 H, Lymph % ( Auto) 8.0 L, Walton % (Auto) 5.2, Eos % (Auto) 0.0 L, Baso % (Auto) 0.0, Gran # 21.34 H, Lymph # 2.0, Walton # 1.3 H, Eos # 0.0, Baso # 0.01 I have reviewed the lab results: Yes - RAD Interpretation Radiology Orders: 04/09/17 17:12 CHEST PORTABLE [RAD] Stat - Medication Orders Current Medication Orders: Acetylcysteine (Acetylcysteine 20%) 4 ml IH [id number] [place] Albuterol Sulfate (Albuterol 0.083% Inhal Rylee (2.5 Mg/3 Ml) Ud) 2.5 mg INH [id number] PRN PRN Reason: Shortness of Breath Aspirin (Ecotrin) 81 mg PO DAILY COL[place] Benzocaine/Menthol (Cepacol Sore Throat) 1 carlos MT Q3H PRN PRN Reason: Sore Throat Budesonide (Pulmicort Respules) 0.5 mg IH [id number] [place] Diazepam (Valium) 5 mg PO DAILY COLTON PRN Reason: Protocol Escitalopram Oxalate (Lexapro) 5 mg PO DAILY [place] Guaifenesin (Mucinex La) 600 mg PO Q6H [place] Azithromycin (Zithromax 500mg In Ns) 500 mg in 250 mls @ 167 mls/hr IVPB STAT STA PRN Reason: Protocol Stop: 04/10/17 00:37 Levalbuterol HCl (Xopenex) 0.63 mg IH [id number] PRN PRN Reason: Shortness of Breath Loratadine (Claritin) 10 mg PO DAILY [facility] Megestrol Acetate (Megace) 400 mg PO DAILY [facility] Methylprednisolone (Solu-Medrol) 40 mg IVP Q12 [place] Montelukast Sodium (Singulair) 10 mg PO HS [facility] Multivitamins/Minerals (Therapeutic-M Tab) 1 tab PO DAILY [facility] Non-Formulary Medication (Quinine Sulfate [Qualaquin]) 324 mg PO DAILY [facility] Pregabalin (Lyrica) 100 mg PO TID [facility] Sucralfate (Carafate Tab) 1 gm PO BID [facility] Tamsulosin HCl (Flomax) 0.4 mg PO DAILY [facility] Tramadol/Acetaminophen (Ultracet 37.5/325 Mg) 1 tab PO BID [facility] Discontinued Medications Albuterol/Ipratropium (Duoneb 3 Mg/0.5 Mg (3 Ml) Ud) 3 ml IH Q15M [place] Stop: 04/09/17 17:46 Last Admin: 04/09/17 17:37 Dose: 3 ml Alprazolam (Xanax) 0.25 mg PO STAT STA Stop: 04/09/17 17:51 Last Admin: 04/09/17 18:12 Dose: 0.25 mg Ceftriaxone Sodium (Rocephin 1 Gram Ivpb) 1 gm in 100 mls @ 200 mls/hr IVPB ONCE STA PRN Reason: Protocol Stop: 04/09/17 20:53 Last Admin: 04/09/17 21:15 Dose: 200 mls/hr eMAR Start Stop Document 04/09/17 21:15 OCS (Rec: 04/09/17 21:15 OCS [id number]) Intravenous Solution Start Date 04/09/17 Start Time 21:15 End Date 04/09/17 End time 21:45 Total Infusion Time 30 Methylprednisolone (Solu-Medrol) 125 mg IVP STAT STA Stop: 04/09/17 17:14 Last Admin: 04/09/17 17:27 Dose: 125 mg IVP Administration Document 04/09/17 17:27 OCS (Rec: 04/09/17 17:27 OCS [id number]) Charges for Administration # of IVP Administrations 1 Morphine Sulfate (Morphine) 2 mg IVP STAT STA Stop: 04/09/17 17:28 Last Admin: 04/09/17 17:36 Dose: 2 mg MAR Pain Assessment Document 04/09/17 17:36 OCS (Rec: 04/09/17 17:37 OCS [id number]) Pain Reassessment Is this a pain reassessment? Yes Sleep Is patient sleeping during reassessment? No Presence of Pain Presence of Pain Yes Location Left, Right or Bilateral Bilateral Pain Location Body Site Chest Description Description Constant Intensity of Pain at present 10 Pain Behavior Irritability Restlessness Facial Grimacing Aggravating Factors ADL's IVP Administration Document 04/09/17 17:36 OCS (Rec: 04/09/17 17:37 [id number] Charges for Administration # of IVP Administrations 1 - Scribe Statement The provider has reviewed the documentation as recorded by the Sarah Branham Provider Scribe Attestation: All medical record entries made by the Scribe were at my direction and personally dictated by me. I have reviewed the chart and agree that the record accurately reflects my personal performance of the history, physical exam, medical decision making, and the department course for this patient. I have also personally directed, reviewed, and agree with the discharge instructions and disposition. Disposition/Present on Arrival - Present on Arrival Any Indicators Present on Arrival: No History of DVT/PE: No History of Uncontrolled Diabetes: No Urinary Catheter: No History Surgical Site Infection Following: None - Disposition Have Diagnosis and Disposition been Completed?: Yes Diagnosis: COPD with acute exacerbation, Tachycardia, Chest pain, Leukocytosis Disposition: HOSPITALIZED Disposition Time: 18:45 Patient Plan: Admission, Telemetry Patient Problems: Current Active Problems Problem Status Onset Acute exacerbation of chronic obstructive pulmonary disease Acute Chest pain Acute Leukocytosis Acute Tachycardia Acute Condition: SERIOUS
[2017-04-09 17:27] LABS: VENOUS BLOOD GAS BASE EXCESS 4.5 mmol/L (0.0-2.0); VENOUS BLOOD GAS PO2 63 mm/Hg (30-55); VENOUS BLOOD PH 7.26 (7.32-7.43)
[2017-04-09] MEDS ORDERED: Morphine 2 mg/ml ISec IVP STA (17:27)
[2017-04-09] MEDS: Albuterol-Ipratrop 3 mg / 0.5 (3 ml) UD IH SCH ×3 (17:27→17:37)
[2017-04-09 17:29] LABS: BASO # 0.01 K/mm3 (0.0-2.0); GRAN # 21.34 (1.4-6.5); GRAN % 86.8 % (50.0-68.0); HEMOGLOBIN 12.1 g/dL (14.0-18.0); MEAN CELL VOLUME 86.5 fl (80.0-105.0); MEAN CORPUSCULAR HEMOGLOBIN 28.2 pg (25.0-35.0); MEAN CORPUSCULAR HGB CONC 32.6 g/dl (31.0-37.0); MEAN PLATELET VOLUME 9.2 fl (7.0-11.0); MONO # 1.3 (0.1-0.6); MONO % 5.2 % (1.0-6.0); RBC 4.29 10^6/uL (3.5-6.1); RED CELL DISTRIBUTION WIDTH 16.6 % (11.5-14.5); WHITE BLOOD COUNT 24.6 10^3/ul (4.5-11.0)
[2017-04-09 17:38] LABS: URINE BILIRUBIN NEGATIVE (NEGATIVE); URINE BLOOD NEGATIVE (NEGATIVE); URINE GLUCOSE (UA) NEGATIVE (NEGATIVE); URINE LEUKOCYTE ESTERASE NEGATIVE Leu/uL (NEGATIVE); URINE NITRATE NEGATIVE (NEGATIVE); URINE PROTEIN TRACE mg/dL (<30 mg/dL)
[2017-04-09 17:40] LABS: INR 0.91 (0.93-1.08); PARTIAL THROMBOPLASTIN TIME 28.2 Seconds (25.1-36.5); PROTHROMBIN TIME 10.3 SECONDS (9.4-12.5)
[2017-04-09 17:41] LABS: URINE COLOR YELLOW (YELLOW)
[2017-04-09 17:47] LABS: ALB/GLOB RATIO 1.3 (1.1-1.8); ALBUMIN 3.9 g/dL (3.0-4.8); ALT/SGPT 25 U/L (7-56); AST/SGOT 30 U/L (17-59); BLOOD UREA NITROGEN 17 mg/dL (7-21); CALCIUM 10.5 mg/dL (8.4-10.5); GFR AFRICAN-AMERICAN > 60; GFR NON-AFRICAN AMERICAN > 60
[2017-04-09 17:49] LABS: B-TYPE NATRIURETIC PEPTIDE 195 pg/mL (0-450); TROPONIN I < 0.01 ng/mL
[2017-04-09 17:50] LABS: URINE AMORPHOUS SEDIMENT MODERATE; URINE BACTERIA FEW (NEG); URINE EPITHELIAL CELLS 0 - 2 /hpf (0-5); URINE WBC 0 - 2 /hpf (0-6)
[2017-04-09 17:51] LABS: URINE APPEARANCE SL CLOUDY (CLEAR)
--- NOTE | 2017-04-09 18:33 | RAD ---
HISTORY: Shortness of breath. COMPARISON: 03/27/2017 FINDINGS: LUNGS: Thin walled cysts, uncomplicated right upper lobe is stable. PLEURA: No significant pleural effusion identified, no pneumothorax apparent. CARDIOVASCULAR: No radiographic findings to suggest acute or significant cardiovascular disease. OSSEOUS STRUCTURES: No significant abnormalities. VISUALIZED UPPER ABDOMEN: Normal. OTHER FINDINGS: None. IMPRESSION: No active disease. No significant interval change compared to the prior examination(s).
[2017-04-09 19:43] LABS: ARTERIAL BLOOD GAS HCO3 31.1 mmol/L (21-28); ARTERIAL BLOOD GAS O2 SAT 98.1 % (95-98); ARTERIAL BLOOD GAS PCO2 49 mm/Hg (35-45); ARTERIAL BLOOD GAS PH 7.41 (7.35-7.45); ARTERIAL BLOOD GAS TCO2 32.6 mmol.L (22-28)
[2017-04-09] MEDS ORDERED: cefTRIAXone 1 gm 1 GM/100 ML BAG IVPB STA (20:24)
[2017-04-09] MEDS ORDERED: Albuterol 0.083% Inhal Sol (2.5 mg/3 mL) UD IH PRN (23:04)
[2017-04-09] MEDS ORDERED: Azithromycin 500MG/NS 250ml 500 MG/250 ML BAG IVPB STA (23:08)
[2017-04-09] MEDS ORDERED: TraMADol/Apap 37.5/325 mg Tab PO ONE (23:30)
[2017-04-09] MEDS: guaiFENesin 600 mg ER Tab PO SCH (23:49)
[2017-04-10] MEDS: Acetylcysteine 20% Inhal Soln (4ml) IH SCH ×5 (00:24→19:45)
[2017-04-10] MEDS: Levalbuterol 0.63 MG/3 ML Inhal Soln UD IH PRN ×2 (00:25→13:39)
--- NOTE | 2017-04-10 04:39 | CON ---
DATE: 04/09/2017 REFERRING PHYSICIAN: Ekaterina Viera MD REASON FOR CONSULTATION: Respiratory failure requiring noninvasive ventilation exacerbation of chronic lung disease. HISTORY OF PRESENT ILLNESS: This is a 71-year-old gentleman known to me from previous admission, just recently discharged home. He has a severe obstructive lung disease, steroids dependent; history of esophageal cancer, received radiation therapy; had a massive pneumonia of the right lung, recovered; has a right upper lobe cavitary lesion; oral pharyngeal and esophageal a dysphagia, on pureed diet. He went for PET scan of the chest yesterday. Overnight not feeling well, this morning woke up with shortness of breath, severe tachypnea and tachycardia, came to emergency room where his heart rate was 150-155, respirations of 30-40. He is DNR. Spoke to ER physician, Dr. Thomas in detail. The patient was given steroids, could not go with much inhaled bronchodilator because of severe tachycardia. He was given morphine 2 mg IV and offered noninvasive ventilation. The time I saw him, he was feeling little better; still tachypneic and tachycardiac, has a left-sided muscular type chest pain. No nausea or vomiting. No diarrhea, leg pain or leg swelling. PAST MEDICAL HISTORY: Chronic obstructive lung disease; right upper lobe cavitary lesion; esophageal cancer, been on radiation therapy with history of GERD; BPH; insomnia; anxiety disorder; depression. FAMILY HISTORY: No significant cardiopulmonary disease reported. SOCIAL HISTORY: Former smoker. ALLERGIES: None known. MEDICATIONS: He received morphine 2 mg in ER, Rocephin 1 g given, Solu-Medrol 125 mg given, Xanax 0.25 mg given, home medication reviewed. REVIEW OF SYSTEMS: No headache. Had on and off rhinitis, cough, sputum production, left-sided muscular type pain. No nausea. No vomiting. No diarrhea. No leg pain or leg swelling. Short of breath and cough. PHYSICAL EXAMINATION: GENERAL: Moderate distress secondary to cough and shortness of breath. VITAL SIGNS: Temperature is 98, heart rate on admission was 155, respiratory rate is 28, blood pressure 118/66, pulse of 98% on high-flow oxygen mask. HEENT: Moist mucous membrane. Crowded airway. NECK: Supple. No JVD. LUNGS: Has a poor airflow. HEART: S1, S2, tachycardic. ABDOMEN: Soft, nontender. No organomegaly. EXTREMITIES: There is no edema. NEUROLOGIC: Awake, alert, follows simple commands. LABORATORY DATA: Shows hemoglobin 12.1, hematocrit 37.1, WBC 25,000, platelet is 324. INR 0.91. PTT 28. Blood gases shows pH 7.41, pCO2 49, O2 is 82 that was on 40% oxygen. Sodium 137, potassium 4.4, chloride 96, bicarbonate 32, BUN 17, creatinine 0.6, glucose 126, calcium 10.5, AST 30, ALT 25, alk phos is 60. Troponin less than 0.01. WBC 0-2. Influenza A and B is negative. Chest x-ray done in emergency room shows no active pulmonary disease. Has chronic changes noted. IMPRESSION: Severe obstructive lung disease with respiratory failure requiring noninvasive ventilation, has right upper lobe cavitary lesion, esophageal cancer with esophageal stricture, gastroesophageal reflux disease, anxiety, depression. Case discussed with ER physician, Dr. Thomas, spoke to the patient's and son at bedside. All the questions answered. Also spoke to Dr. Ferreira. I will keep the patient under observation, add IV and inhaled bronchodilator. We will add Zithromax 500 mg daily add Mucomyst. Gastric prophylaxis, DVT prophylaxis. We will try to get his PET scan report which was done in [place] yesterday. Thank you and we will follow with you. Jesika Srivastava MD cc:
[2017-04-10] MEDS: guaiFENesin 600 mg ER Tab PO SCH ×4 (06:38→23:15)
[2017-04-10] MEDS: Pantoprazole 40 mg EC Tab PO SCH (07:16)
[2017-04-10 07:49] LABS: GRAN # 12.36 (1.4-6.5); GRAN % 95.2 % (50.0-68.0); LYMPH # 0.2 (1.2-3.4); LYMPH % 1.7 % (22.0-35.0); MEAN CELL VOLUME 85.5 fl (80.0-105.0); MEAN CORPUSCULAR HEMOGLOBIN 27.9 pg (25.0-35.0); MEAN CORPUSCULAR HGB CONC 32.7 g/dl (31.0-37.0); MEAN PLATELET VOLUME 8.5 fl (7.0-11.0); MONO # 0.4 (0.1-0.6); MONO % 3.1 % (1.0-6.0); PLATELET COUNT 201 10^3/uL (120.0-450.0); RBC 3.51 10^6/uL (3.5-6.1); RED CELL DISTRIBUTION WIDTH 16.3 % (11.5-14.5)
[2017-04-10 07:50] LABS: VENOUS BLOOD GAS BASE EXCESS 12.9 mmol/L (0.0-2.0); VENOUS BLOOD GAS PO2 44 mm/Hg (30-55); VENOUS BLOOD PH 7.42 (7.32-7.43)
[2017-04-10 07:51] LABS: HEMOGLOBIN 9.8 g/dL (14.0-18.0)
[2017-04-10 08:00] LABS: BLOOD UREA NITROGEN 20 mg/dL (7-21); GFR AFRICAN-AMERICAN > 60; GFR NON-AFRICAN AMERICAN > 60
[2017-04-10] MEDS ORDERED: Budesonide 0.5 mg/2 ml Inhal Susp UD IH SCH (08:00)
[2017-04-10] MEDS: Budesonide 0.5 mg/2 ml Inhal Susp UD IH SCH ×2 (08:01→19:45)
[2017-04-10] MEDS: Arformoterol 15 mcg/2 ml Inh Sol IH SCH ×2 (08:01→19:45)
[2017-04-10] MEDS: Benzocaine/Menthol (Cepacol) Lozenge MT PRN ×2 (08:56→21:17)
[2017-04-10] MEDS: MethylPREDNISolone 40 mg Vial IVP SCH ×2 (09:07→21:03)
[2017-04-10] MEDS: Nystatin 100,000 Units/ml Oral Susp 5 ml UD PO SCH ×4 (09:08→21:03)
[2017-04-10] MEDS: Megestrol Acetate 40 mg/ml Cup PO SCH (09:12)
[2017-04-10] MEDS: Tiotropium 18 mcg Cap For Inhalation IH SCH (09:13)
[2017-04-10 09:14] LABS: BAND 2 % (0-2); LYMPHOCYTE 2 % (22.0-35.0); NEUTROPHIL 95 % (50.0-70.0)
[2017-04-10] MEDS: TraMADol/Apap 37.5/325 mg Tab PO SCH ×4 (09:14→22:30)
[2017-04-10 09:15] LABS: ANISOCYTOSIS 1+; HYPOCHROMIA 1+; MONOCYTE 1 % (1.0-6.0); PLATELET ESTIMATE NORMAL (NORMAL)
[2017-04-10] MEDS: Multivitamin With Minerals Tab PO SCH (09:16)
[2017-04-10] MEDS ORDERED: Fluticasone-Salmeterol 500-50mcg Diskus INH SCH (10:00)
--- NOTE | 2017-04-10 11:19 | CP.PCM.HP ---
History of Present Illness - History of Present Illness History of Present Illness: History and Physical for Dr. 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 Patient states he suddenly developed left sided chest pain while sleeping at home. Patient states he developed the pain suddenly, with no radiation to the jaw or arm. Patient did not take any medication for his pain. Patient states he became worried and came to the hospital. Patient denies any trauma to the area. Patient has been compliant with his medication. Patient was recently discharged from the hospital after being admitted for HCAP. Today, patient states he feels better with no more left sided pain. He states his respiratory status is at baseline. No other complaints at this time. Denies chest pain, shortness of breath, nausea, vomiting, diarrhea, fever, chills, dysuria, headache, chills, weakness, fatigue. PMH: Esophageal cancer, COPD, GERD, SIADH, Melanoma Surgical Hx: Appendectomy [facility] Hx: Noncontributory Social Hx: Former smoker for 1-2ppd x 40 years, denies alcohol or illicit drug use Allergies: NKDA Medications: Reviewed, as per MAR Present on Admission - Present on Admission Any Indicators Present on Admission: No Review of Systems - Review of Systems Review of Systems: 12 point ROS as per HPI, otherwise negative Past Patient History - Infectious Disease Hx of Infectious Diseases: None - Tetanus Immunizations Tetanus Immunization: Unknown - Past Social History Smoking Status: Former Smoker - CARDIAC Hx Cardiac Disorders: Yes Hx Pacemaker: No - PULMONARY Hx Respiratory Disorders: Yes (SMOKED 1-2 PPD QUIT 1999) Hx Chronic Obstructive Pulmonary Disease (COPD): Yes (home o2 at 2LPM) Hx Emphysema: Yes Hx Pneumonia: Yes - NEUROLOGICAL Hx Neurological Disorder: Yes (RESTLESS LEG SYNDROME) - HEENT Hx HEENT Problems: Yes (reading glasses) Hx Cataracts: Yes (b/l cat sx) Other/Comment: voice hoarse - RENAL Hx Chronic Kidney Disease: No - ENDOCRINE/METABOLIC Hx Endocrine Disorders: No - HEMATOLOGICAL/ONCOLOGICAL Hx Blood Disorders: Yes Hx Anemia: Yes Hx Cancer: Yes (esophogeal CA COMPLETED RADIATION) Hx Shingles: Yes (10/2016 right buttock to right groin) - INTEGUMENTARY Hx Dermatological Problems: Yes 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) Hx Melanoma: Yes (removed from back) Other/Comment: pt had shingles in 10/2015 r buttock around to r groin rash faded , "some" residual pain on lyrica (previous triage) - MUSCULOSKELETAL/RHEUMATOLOGICAL Hx Musculoskeletal Disorders: Yes Hx Arthritis: Yes ("all over") Hx Falls: No - GASTROINTESTINAL Hx Gastrointestinal Disorders: Yes Hx Gastroesophageal Reflux: Yes HX Swallowing Problems: Yes - GENITOURINARY/GYNECOLOGICAL Hx Genitourinary Disorders: Yes Hx Prostate Problems: Yes (ENLARGED,BPH) - PSYCHIATRIC Hx Psychophysiologic Disorder: Yes (INSOMNIA) Hx Anxiety: Yes Hx Depression: Yes Hx Substance Use: No - SURGICAL HISTORY Hx Appendectomy: Yes Hx Mastectomy: No - ANESTHESIA Hx Anesthesia: Yes Hx Anesthesia Reactions: No Hx Malignant Hyperthermia: No Meds Allergies/Adverse Reactions: Allergies Allergy/AdvReac Type Severity Reaction Status Date / Time No Known Allergies Allergy Verified 04/09/17 17:17 Physical Exam - Constitutional Appears: Non-toxic, No Acute Distress - Head Exam Head Exam: ATRAUMATIC, NORMAL INSPECTION, NORMOCEPHALIC - Eye Exam Eye Exam: EOMI, Normal appearance - ENT Exam ENT Exam: Mucous Membranes Moist, Normal Exam - Neck Exam Neck exam: Positive for: Normal Inspection. Negative for: Lymphadenopathy - Respiratory Exam Respiratory Exam: Decreased Breath Sounds, NORMAL BREATHING PATTERN. absent: Rales, Rhonchi, Wheezes - Cardiovascular Exam Cardiovascular Exam: RRR, +S1, +S2 - GI/Abdominal Exam GI & Abdominal Exam: Normal Bowel Sounds, Soft. absent: Tenderness - Extremities Exam Extremities exam: Positive for: normal inspection. Negative for: calf tenderness, pedal edema - Neurological Exam Neurological exam: Alert, CN II-XII Intact, Oriented x3 - Psychiatric Exam Psychiatric exam: Normal Affect, Normal Mood - Skin Skin Exam: Intact, Normal Color, Warm Results - Vital Signs Recent Vital Signs: Last Vital Signs Temp 97.8 F 04/10/17 06:00 Pulse 87 04/10/17 06:00 Resp 18 04/10/17 06:00 BP 142/87 04/10/17 06:00 Pulse Ox 98 04/10/17 06:00 - Labs Result Diagrams: 04/10/17 07:30 04/10/17 07:30 Labs: Laboratory Results - last 24 hr 04/10/17 04/10/17 04/10/17 07:30 07:30 07:30 WBC 13.0 H D RBC 3.51 Hgb 9.8 L D Hct 30.0 L MCV 85.5 MCH 27.9 MCHC 32.7 RDW 16.3 H Plt Count 201 MPV 8.5 Gran % 95.2 H Lymph % (Auto) 1.7 L [place] % (Auto) 3.1 Eos % (Auto) 0.0 L Baso % (Auto) 0.0 Gran # 12.36 H Lymph # 0.2 L [place] # 0.4 Eos # 0.0 Baso # 0.00 Neutrophils % (Manual) 95 H Band Neutrophils % 2 Lymphocytes % (Manual) 2 L Monocytes % (Manual) 1 Platelet Evaluation Normal Hypochromasia 1+ Anisocytosis (manual) 1+ pO2 44 VBG pH 7.42 VBG pCO2 62.0 H VBG HCO3 40.2 H VBG Total CO2 42.1 H VBG O2 Sat (Calc) 82.7 H VBG Base Excess 12.9 H VBG Potassium 4.6 Sodium 134.0 135 Chloride 100.0 96 L Glucose 140 H Lactate 0.7 FiO2 21.0 Potassium 4.6 Carbon Dioxide 34 H Anion Gap 10 BUN 20 Creatinine 0.4 L Est GFR ( Amer) > 60 Est GFR (Non-Af Amer) > 60 Random Glucose 131 H Calcium 10.0 Venous Blood Potassium 4.6 Assessment & Plan - Assessment and Plan (Free Text) Plan: 71 y/o man with past medical history of 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 Troponin negative in the ED, making cardiac origin of pain unlikely. Pain likely musculoskeletal in nature. Patient initially required BIPAP, but is now resting comfortable on NC. No antibiotics needed at this time, patient received broad spectrum antibiotics in the ED. Patient placed on IV steroids, will be tapered as per Pulmonary. Patient will have his home medications restarted. Patient stable, will reevaluate tomorrow and continue to monitor closely. Plan discussed with Dr. Ferreira. Gianna, PGY-2
--- NOTE | 2017-04-10 15:59 | CARD ---
APPROVED REPORT EKG Measurement Heart [id number] <Conclusion> Sinus tachycardia Anterior infarct, age undetermined Abnormal ECG
[2017-04-11] MEDS: Acetylcysteine 20% Inhal Soln (4ml) IH SCH ×4 (01:19→20:10)
--- NOTE | 2017-04-11 05:09 | PN ---
DATE: 04/10/2017 PULMONARY PROGRESS NOTE REFERRING PHYSICIAN: Dr. Ferreira. SUBJECTIVE: He is sitting at the side of the bed, tolerated BiPAP well last night, still short of breath and cough. No nausea, no vomiting, no diarrhea, no leg pain, no leg swelling. OBJECTIVE: GENERAL: In no acute distress. VITAL SIGNS: Temperature 98, heart rate is 109, respiratory rate is 22, blood pressure is 111/65 and pulse oximetry is 94% on 3 liter nasal cannula. HEENT: Moist mucous membranes. Crowded airway. NECK: Supple. No JVD. LUNGS: Have a poor airflow, prolonged expiratory phase. HEART: S1 and S2. ABDOMEN: Soft and nontender. No organomegaly. EXTREMITIES: No edema. NEUROLOGIC: Awake and alert, follows simple commands. MEDICATIONS: He is on Mucomyst 20% inhaled q.6 hours, albuterol and Atrovent nebulizer q.6 hours p.r.n, Brovana inhaler twice a day, Carafate 1 gm a.c.b., Cepacol lozenges q.3 hours, Claritin 10 mg daily, Ecotrin 81 mg daily, Flomax 0.4 mg daily, Lexapro 5 mg daily, Lyrica 100 mg three times a day, Megace 100 mg daily, Mucinex LA 600 mg q.6 hours, nystatin oral suspension 5 mL q.i.d, Protonix 40 mg daily, Pulmicort inhaled twice a day, quinine 324 mg daily, Reglan 10 mg a.c. and at bedtime added today, Singulair 10 mg daily, Solu-Medrol 40 mg q.12 hours, Spiriva inhaled daily, Tessalon Perles 100 mg three times a day, multivitamin daily, Ultracet 37.5/325 one tablet q.12 hours, Valium 5 mg at bedtime, Xanax 0.25 mg q.8 hours p.r.n, Xopenex inhaled q.6 hours. LABORATORY DATA: Shows hemoglobin 9.8, hematocrit 30.0, WBC is 13, and platelet count is 201. Has VBG done today shows pH 7.42, pCO2 is 62. Sodium 135, potassium 4.6, chloride 96, bicarbonate 34, BUN 20, creatinine 0.4, glucose 131, calcium is 10.0. Influenza A and B is negative. Microbiology: Blood culture and urine culture, there is no growth. Chest x-ray shows no new infiltrate. IMPRESSION AND PLAN: Severe obstructive lung disease; respiratory failure, requiring noninvasive ventilation; right upper lobe nodular cavity infiltrate; esophageal cancer, being on radiation therapy; has esophageal stricture, on modified diet; gastroesophageal reflux disease; anxiety disorder; depression, has a sore throat. Case discussed with nursing staff, added Reglan for few days and see how he does, it may be caused gastroesophageal reflux. Continue IV and inhaled bronchodilator, BiPAP while sleeping and in respiratory distress, gastric prophylaxis, need to get copy of his PET scan done two days ago at [place]. Thank you and we will follow with you. Jesika Srivastava MD
[2017-04-11] MEDS: Pantoprazole 40 mg EC Tab PO SCH (05:47)
[2017-04-11] MEDS: guaiFENesin 600 mg ER Tab PO SCH ×4 (05:47→23:54)
[2017-04-11] MEDS: Arformoterol 15 mcg/2 ml Inh Sol IH SCH ×2 (07:59→20:10)
[2017-04-11] MEDS: Levalbuterol 0.63 MG/3 ML Inhal Soln UD IH PRN (08:00)
[2017-04-11] MEDS: Budesonide 0.5 mg/2 ml Inhal Susp UD IH SCH ×2 (08:00→20:11)
[2017-04-11] MEDS: MethylPREDNISolone 40 mg Vial IVP SCH ×2 (09:41→21:23)
[2017-04-11] MEDS: Multivitamin With Minerals Tab PO SCH (09:41)
[2017-04-11] MEDS: Nystatin 100,000 Units/ml Oral Susp 5 ml UD PO SCH ×4 (09:41→21:23)
[2017-04-11] MEDS: Megestrol Acetate 40 mg/ml Cup PO SCH (09:41)
[2017-04-11] MEDS: Tiotropium 18 mcg Cap For Inhalation IH SCH (09:41)
[2017-04-11] MEDS: TraMADol/Apap 37.5/325 mg Tab PO SCH ×2 (09:46→21:23)
[2017-04-11] MEDS: QUININE SULFATE 324 MG PO SCH (13:38)
[2017-04-11] MEDS: Benzocaine/Menthol (Cepacol) Lozenge MT PRN ×3 (13:39→21:23)
--- NOTE | 2017-04-11 13:49 | CP.PCM.PN ---
Subjective - Date & Time of Evaluation Date of Evaluation: 04/11/17 Time of Evaluation: 13:45 - Subjective Subjective: Patient seen and examined at bedside. Patient states he has no complaints at this time. His breathing is at baseline, along with his cough. Denies chest pain , shortness of breath, nausea, vomiting, diarrhea, fever, headache. Objective - Vital Signs/Intake and Output Vital Signs (last 24 hours): Temp Pulse Resp BP Pulse Ox 97.3 F L 79 22 106/64 98 04/11/17 06:00 04/11/17 09:10 04/11/17 06:00 04/11/17 06:00 04/11/17 06:00 Intake and Output: 04/11/17 04/11/17 06:59 18:59 Intake Total 540 Output Total 550 Balance -10 - Medications Medications: Current Medications Acetylcysteine (Acetylcysteine 20%) 4 ml IH [id number] [facility] Last Admin: 04/11/17 08:03 Dose: 4 ml Albuterol Sulfate (Albuterol 0.083% Inhal Rylee (2.5 Mg/3 Ml) Ud) 2.5 mg INH [id number] PRN PRN Reason: Shortness of Breath Alprazolam (Xanax) 0.25 mg PO TID PRN; Protocol PRN Reason: Anxiety Stop: 04/17/17 10:01 Last Admin: 04/11/17 10:06 Dose: 0.25 mg Arformoterol Tartrate (Brovana) 15 mcg IH [id number] [facility] Last Admin: 04/11/17 07:59 Dose: 15 mcg Aspirin (Ecotrin) 81 mg PO DAILY [facility] Last Admin: 04/11/17 09:40 Dose: 81 mg Benzocaine/Menthol (Cepacol Sore Throat) 1 carlos MT Q3H PRN PRN Reason: Sore Throat Last Admin: 04/11/17 13:39 Dose: 1 carlos Benzonatate (Tessalon Perles) 100 mg PO TID [facility] Last Admin: 04/11/17 13:37 Dose: 100 mg Budesonide (Pulmicort Respules) 1 mg IH [id number] [facility] Last Admin: 04/11/17 08:00 Dose: 1 mg Diazepam (Valium) 5 mg PO [facility] PRN Reason: Protocol Escitalopram Oxalate (Lexapro) 5 mg PO DAILY [facility] Last Admin: 04/11/17 09:41 Dose: 5 mg Guaifenesin (Mucinex La) 600 mg PO Q6H [facility] Last Admin: 04/11/17 13:06 Dose: Not Given Levalbuterol HCl (Xopenex) 0.63 mg IH [id number] PRN PRN Reason: Shortness of Breath Last Admin: 04/11/17 08:00 Dose: 0.63 mg Loratadine (Claritin) 10 mg PO DAILY [facility] Last Admin: 04/11/17 09:40 Dose: 10 mg Megestrol Acetate (Megace) 400 mg PO DAILY [facility] Last Admin: 04/11/17 09:41 Dose: 400 mg Methylprednisolone (Solu-Medrol) 40 mg IVP Q12 [facility] Last Admin: 04/11/17 09:41 Dose: 40 mg Metoclopramide HCl (Reglan) 10 mg PO ACHS [facility] Last Admin: 04/11/17 13:38 Dose: 10 mg Montelukast Sodium (Singulair) 10 mg PO HS [facility] Last Admin: 04/10/17 21:03 Dose: 10 mg Multivitamins/Minerals (Therapeutic-M Tab) 1 tab PO DAILY [facility] Last Admin: 04/11/17 09:41 Dose: 1 tab Non-Formulary Medication (Quinine Sulfate [Qualaquin]) 324 mg PO DAILY [facility] Last Admin: 04/11/17 13:38 Dose: Not Given Nystatin (Nystatin Oral Susp) 5 ml PO QID [facility] Last Admin: 04/11/17 13:37 Dose: 5 ml Pantoprazole Sodium (Protonix Ec Tab) 40 mg PO 0600 [facility] Last Admin: 04/11/17 05:47 Dose: Not Given Pregabalin (Lyrica) 100 mg PO TID [facility] Last Admin: 04/11/17 13:37 Dose: 100 mg Sucralfate (Carafate Tab) 1 gm PO ACBD [facility] Last Admin: 04/11/17 08:19 Dose: 1 gm Tamsulosin HCl (Flomax) 0.4 mg PO DAILY [facility] Last Admin: 04/11/17 09:40 Dose: 0.4 mg Tiotropium [place] (Spiriva) 18 mcg IH DAILY [facility] Last Admin: 04/11/17 09:41 Dose: 18 mcg Tramadol/Acetaminophen (Ultracet 37.5/325 Mg) 1 tab PO Q12H [place] Last Admin: 04/11/17 09:46 Dose: 1 tab - Labs Labs: 04/10/17 07:30 04/10/17 07:30 PT 10.3 SECONDS (9.4-12.5) 04/09/17 17:15 INR 0.91 (0.93-1.08) L 04/09/17 17:15 APTT 28.2 Seconds (25.1-36.5) 04/09/17 17:15 - Constitutional Appears: Non-toxic, No Acute Distress - Head Exam Head Exam: ATRAUMATIC, NORMAL INSPECTION, NORMOCEPHALIC - ENT Exam ENT Exam: Mucous Membranes Moist - Respiratory Exam Respiratory Exam: Decreased Breath Sounds, NORMAL BREATHING PATTERN. absent: Rales, Rhonchi, Wheezes - Cardiovascular Exam Cardiovascular Exam: RRR, +S1, +S2 - GI/Abdominal Exam GI & Abdominal Exam: Soft, Normal Bowel Sounds. absent: Tenderness - Extremities Exam Extremities Exam: Normal Inspection. 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 Patient using BIPAP at night, comfortably. Patient remains on nasal cannula throughout the day. No antibiotics at this time. Patient will have steroids tapered as per Pulmonology. PET scan received from [place] shows decrease in uptake from esophageal tumor but new focus noted in the left chest. Results discussed with patient's . Patient stable, will reevaluate tomorrow and continue to monitor closely. Plan discussed with Dr. Ferreira. Gianna, PGY-2
[2017-04-11] MEDS: Albuterol 0.083% Inhal Sol (2.5 mg/3 mL) UD INH PRN (13:54)
[2017-04-12] MEDS: Acetylcysteine 20% Inhal Soln (4ml) IH SCH ×4 (01:25→20:04)
--- NOTE | 2017-04-12 03:07 | PN ---
PULMONARY PROGRESS NOTE DATE: 04/11/2017 REFERRING PHYSICIAN: Abhijeet Vigil MD SUBJECTIVE: He is sitting side of the bed, whole day events noted. He was able to go to men's room and came out, had acute shortness of breath with heart rate above 150 with sinus tachycardia. Apparently, IV Cardizem 5 mg was given that time. Still has a cough, sore throat, short of breath, cough, and clear sputum. No nausea. No vomiting. No abdominal pain. No leg pain or leg swelling. OBJECTIVE: GENERAL: Has some distress. VITAL SIGNS: Temperature is 98, heart rate is 125, respiratory rate is 22, blood pressure is 128/89, and pulse oximetry is 92% on nasal cannula. HEENT: Moist mucous membranes. Crowded airway. NECK: Supple. No JVD. LUNGS: Has a poor airflow. Prolonged expiratory phase. HEART: S1 and S2. ABDOMEN: Soft, nontender, and nondistended. EXTREMITIES: There is no edema. NEUROLOGIC: Awake, alert, and follow simple commands. MEDICATIONS: He is on Mucomyst 4 mL q.6 hours, albuterol and Atrovent nebulizer q.6 hours p.r.n., Brovana inhaled twice a day, Carafate 1 g a.c. b.d. Cepacol lozenges q.3 hours p.r.n., Claritin 10 mg daily, Ecotrin 81 mg daily, tamsulosin 0.4 mg daily, Lexapro 5 mg daily, Megace 400 mg daily, Mucinex LA 600 mg q.6 hours, nystatin 5 mL four times daily, Protonix 40 mg daily, Pulmicort inhaled twice a day, quinine sulfate 324 mg p.o. daily, Reglan 5 mg three times a day, Singulair 10 mg daily, Solu-Medrol 40 mg q.12 hours, Spiriva inhaled daily, Tessalon Perles three times a day, multivitamins daily, Ultracet 37.5/325 one tablet q.12 hours, Valium 5 mg at bedtime, Xanax 0.25 mg three times a day p.r.n., and Xopenex q.6 hours for shortness of breath. LABORATORY DATA: Microbiology; blood culture and urine culture, there is no growth. IMPRESSION AND PLAN: Severe obstructive lung disease, respiratory failure, recurrent noninvasive ventilation, right upper lobe cavitary lesion, esophageal cancer, being on radiation therapy, gastroesophageal reflux disease, anxiety disorder, and depression. Case discussed with Dr. Ferreira in detail. Spoke to the patient's at bedside. According to Dr. Ferreira, he got report for his latest PET scan, which was done about two days before admission, which shows progressive disease involving the lung mediastinum, hilar nodes. Dr. Ferreira will be speaking to the patient and the patient's about it and further choices, not much choices we have especially because of his very decompensated lung disease though. Thank you and we will follow with you. Jesika Srivastava MD
[2017-04-12] MEDS: guaiFENesin 600 mg ER Tab PO SCH ×5 (06:07→23:55)
[2017-04-12] MEDS: Pantoprazole 40 mg EC Tab PO SCH ×2 (06:08→06:58)
--- NOTE | 2017-04-12 06:12 | CON ---
DATE: 04/11/2017 EAR, NOSE AND THROAT CONSULTATION CONSULTING PHYSICIAN: Hitesh Chen DO REFERRING PHYSICIAN: Abhijeet Vigil MD REASON FOR CONSULTATION: Ear, nose and throat evaluation, shortness of breath. HISTORY OF PRESENT ILLNESS: This is a 71-year-old gentleman. Past medical history includes esophageal carcinoma status post radiation therapy in November, COPD on home oxygen, who was admitted to [facility] for acute onset chest pain, and he was recently admitted and discharged from the hospital after being treated for pneumonia, which was treated with antibiotics and steroids. Now he returns with chest pain. Since being admitted, his chest pain has resolved; however, he does continue to be short of breath; however, he reports this is his baseline given his severe COPD. A few days ago, the patient also reported having sore throat. He reports of baseline dysphagia secondary to esophageal cancer where he only eats pureed food; however, he does not report any increased difficulty in swallowing at this point. He denies any changes in his voice or pain from his throat. He reports he used to see us in the office several years ago for his sinuses and sore throat; however, has not been in a while. He denies nasal obstruction, but does note some postnasal drip and states that he uses saline sprays frequently throughout the day. At this point, he denies any other ear, nose and throat complaints and appears quite comfortable. PAST MEDICAL HISTORY: As stated above. PAST SURGICAL HISTORY: No head or neck surgeries. ALLERGIES: NO KNOWN DRUG ALLERGIES. MEDICATIONS: As per the med rec. PHYSICAL EXAMINATION: GENERAL: He is awake, alert and oriented x3. He is no acute distress. VITAL SIGNS: Temperature is 98.2, pulse is 100, O2 sat is 92% on 3 L of nasal cannula, blood pressure 128/89, respirations are 22. HEENT: Head is atraumatic and normocephalic. Face is symmetrical. Eyes; extraocular movement grossly intact. Nose is patent bilaterally. No discharge, no epistaxis. Oral cavity, oropharynx, the lips are unremarkable. Tongue is mobile and midline. Uvula and palate are symmetrical. No pharyngeal erythema or masses. NECK: Supple, nontender with ptotic submandibular glands. LUNGS: Respirations are unlabored at rest and symmetrical. LABORATORY DATA: His white blood cell count is 13, hemoglobin is 9.8, hematocrit 30, platelet 201. His sodium is 135, potassium 4.6, chloride 96, bicarb 32, creatinine is 0.4. PROCEDURE: Direct fiberoptic laryngoscopy: The flexible fiberoptic scope was inserted into the patient's left nasal passageway and advanced under direct visualization. The nasal passages demonstrated deviated nasal septum and normal mucosa, but did note a postnasal drip going down into the throat; however, no purulent drainage from the sinuses. The scope was flexed down into the nasopharynx. The eustachian tubes were patent bilaterally. There was no pharyngeal edema or erythema. The uvula was normal. The base of tongue was normal. Vallecula was normal. Epiglottis was crisp with no masses or lesions. The arytenoids, aryepiglottic folds, false vocal cords and true vocals demonstrated normal anatomy. The vocal cords approximated normally during phonation. Pyriform sinuses were clear of masses. The postcricoid area was clear of masses. The scope was then removed. Patient tolerated the procedure well. ASSESSMENT AND PLAN: This is a 71-year-old gentleman admitted to the hospital for chest pain, has a history of severe chronic obstructive pulmonary disease on home oxygen, who is short of breath at baseline, also has a history of esophageal cancer status post radiation with chronic dysphagia. At this point, ear, nose and throat evaluation and exam demonstrates a normal glottic anatomy, and I find no reasons to suspect that the shortness of breath is related to any pharyngeal or glottic pathologies. The patient, however, does have a postnasal drip, for which he should continue his saline nasal sprays frequently throughout the day, and could also be placed on Flonase 1 spray once a day to each nostril if needed. Otherwise, I would continue the current management per the primary team. Should his status change, please re-consult us as necessary. This plan was discussed with the patient at the bedside. Hitesh Chen DO
[2017-04-12 06:25] LABS: GRAN # 17.27 (1.4-6.5); GRAN % 95.1 % (50.0-68.0); HEMOGLOBIN 10.1 g/dL (14.0-18.0); LYMPH # 0.3 (1.2-3.4); LYMPH % 1.7 % (22.0-35.0); MEAN CORPUSCULAR HEMOGLOBIN 27.9 pg (25.0-35.0); MEAN CORPUSCULAR HGB CONC 31.1 g/dl (31.0-37.0); MEAN PLATELET VOLUME 9.2 fl (7.0-11.0); MONO # 0.6 (0.1-0.6); MONO % 3.2 % (1.0-6.0); RBC 3.62 10^6/uL (3.5-6.1); RED CELL DISTRIBUTION WIDTH 16.1 % (11.5-14.5); WHITE BLOOD COUNT 18.2 10^3/ul (4.5-11.0)
[2017-04-12 06:39] LABS: MEAN CELL VOLUME 89.8 fl (80.0-105.0)
[2017-04-12 07:05] LABS: ALB/GLOB RATIO 1.1 (1.1-1.8); ALBUMIN 3.1 g/dL (3.0-4.8); ALT/SGPT 30 U/L (7-56); AST/SGOT 23 U/L (17-59); BLOOD UREA NITROGEN 16 mg/dL (7-21); CALCIUM 10.2 mg/dL (8.4-10.5); GFR AFRICAN-AMERICAN > 60; GFR NON-AFRICAN AMERICAN > 60
[2017-04-12] MEDS: Levalbuterol 0.63 MG/3 ML Inhal Soln UD IH PRN ×2 (07:15→14:03)
[2017-04-12 08:26] LABS: HDL CHOLESTEROL 52 mg/dL (29-60); LDL CHOLESTEROL 96 mg/dL (0-129); MAGNESIUM 2.1 mg/dL (1.7-2.2)
[2017-04-12] MEDS: Arformoterol 15 mcg/2 ml Inh Sol IH SCH ×2 (08:29→20:05)
[2017-04-12] MEDS: Budesonide 0.5 mg/2 ml Inhal Susp UD IH SCH ×2 (08:30→20:05)
[2017-04-12 08:32] LABS: TROPONIN I < 0.01 ng/mL
[2017-04-12] MEDS: Morphine 2 mg/ml ISec IVP PRN ×4 (08:32→19:00)
[2017-04-12] MEDS: Tiotropium 18 mcg Cap For Inhalation IH SCH (09:43)
[2017-04-12] MEDS: Megestrol Acetate 40 mg/ml Cup PO SCH (09:43)
[2017-04-12] MEDS: Nystatin 100,000 Units/ml Oral Susp 5 ml UD PO SCH ×4 (09:43→21:31)
[2017-04-12] MEDS: MethylPREDNISolone 40 mg Vial IVP SCH ×2 (09:43→21:32)
[2017-04-12] MEDS: Multivitamin With Minerals Tab PO SCH (09:43)
[2017-04-12] MEDS: QUININE SULFATE 324 MG PO SCH (09:44)
[2017-04-12] MEDS: TraMADol/Apap 37.5/325 mg Tab PO SCH ×2 (09:56→21:31)
--- NOTE | 2017-04-12 14:29 | CP.PCM.PN ---
Subjective - Date & Time of Evaluation Date of Evaluation: 04/12/17 Time of Evaluation: 14:22 - Subjective Subjective: Patient seen and examined at bedside. Patient with elevated heart rate yesterday that resolved with Cardizem administration. Patient also with left pleuritic chest pain this morning which improved after dose of Morphine given. Denies shortness of breath, nausea, vomiting, diarrhea, fever, chills. Objective - Vital Signs/Intake and Output Vital Signs (last 24 hours): Temp Pulse Resp BP Pulse Ox 97.9 F 110 H 21 132/81 95 04/12/17 12:00 04/12/17 12:00 04/12/17 12:00 04/12/17 12:00 04/12/17 12:00 Intake and Output: 04/12/17 04/12/17 06:59 18:59 Intake Total 840 Output Total 450 Balance 390 - Medications Medications: Current Medications Acetylcysteine (Acetylcysteine 20%) 4 ml [facility] [id number] [facility] Last Admin: 04/12/17 14:03 Dose: Not Given Albuterol Sulfate (Albuterol 0.083% Inhal Rylee (2.5 Mg/3 Ml) Ud) 2.5 mg INH [id number] PRN PRN Reason: Shortness of Breath Last Admin: 04/11/17 13:54 Dose: 2.5 mg Alprazolam (Xanax) 0.25 mg PO TID PRN; Protocol PRN Reason: Anxiety Stop: 04/17/17 10:01 Last Admin: 04/12/17 06:58 Dose: 0.25 mg Arformoterol Tartrate (Brovana) 15 mcg [facility] [id number] [facility] Last Admin: 04/12/17 08:29 Dose: Not Given Aspirin (Ecotrin) 81 mg PO DAILY [facility] Last Admin: 04/12/17 09:42 Dose: 81 mg Benzocaine/Menthol (Cepacol Sore Throat) 1 carlos MT Q3H PRN PRN Reason: Sore Throat Last Admin: 04/11/17 21:23 Dose: 1 carlos Benzonatate (Tessalon Perles) 100 mg PO TID [facility] Last Admin: 04/12/17 09:43 Dose: 100 mg Budesonide (Pulmicort Respules) 1 mg IH [id number] [facility] Last Admin: 04/12/17 08:30 Dose: Not Given Diazepam (Valium) 5 mg PO HS [facility] PRN Reason: Protocol Last Admin: 04/11/17 21:23 Dose: 5 mg Escitalopram Oxalate (Lexapro) 5 mg PO DAILY [facility] Last Admin: 04/12/17 09:43 Dose: 5 mg Guaifenesin (Mucinex La) 600 mg PO Q6H [facility] Last Admin: 04/12/17 12:52 Dose: 600 mg Levalbuterol HCl (Xopenex) 0.63 mg IH [id number] PRN PRN Reason: Shortness of Breath Last Admin: 04/12/17 14:03 Dose: 0.63 mg Loratadine (Claritin) 10 mg PO DAILY [facility] Last Admin: 04/12/17 09:42 Dose: 10 mg Megestrol Acetate (Megace) 400 mg PO DAILY [facility] Last Admin: 04/12/17 09:43 Dose: 400 mg Methylprednisolone (Solu-Medrol) 40 mg IVP Q12 [facility] Last Admin: 04/12/17 09:43 Dose: 40 mg Metoclopramide HCl (Reglan) 5 mg PO TID [facility] Last Admin: 04/12/17 09:56 Dose: 5 mg Montelukast Sodium (Singulair) 10 mg PO HS [facility] Last Admin: 04/11/17 21:23 Dose: 10 mg Morphine Sulfate (Morphine) 1 mg IVP Q3H PRN PRN Reason: Pain, severe (8-10) Last Admin: 04/12/17 11:18 Dose: 1 mg Multivitamins/Minerals (Therapeutic-M Tab) 1 tab PO DAILY [facility] Last Admin: 04/12/17 09:43 Dose: 1 tab Non-Formulary Medication (Quinine Sulfate [Qualaquin]) 324 mg PO DAILY [facility] Last Admin: 04/12/17 09:44 Dose: Not Given Nystatin (Nystatin Oral Susp) 5 ml PO QID [facility] Last Admin: 04/12/17 09:43 Dose: 5 ml Pantoprazole Sodium (Protonix Ec Tab) 40 mg PO 0600 [facility] Last Admin: 04/12/17 06:58 Dose: 40 mg Sucralfate (Carafate Tab) 1 gm PO ACBD [facility] Last Admin: 04/12/17 08:29 Dose: Not Given Tamsulosin HCl (Flomax) 0.4 mg PO DAILY [facility] Last Admin: 04/12/17 09:43 Dose: 0.4 mg Tiotropium [place] (Spiriva) 18 mcg I[facility] DAILY [facility] Last Admin: 04/12/17 09:43 Dose: 18 mcg Tramadol/Acetaminophen (Ultracet 37.5/325 Mg) 1 tab PO Q12H [facility] Last Admin: 04/12/17 09:56 Dose: 1 tab - Labs Labs: 04/12/17 05:20 04/12/17 05:20 PT 10.3 SECONDS (9.4-12.5) 04/09/17 17:15 INR 0.91 (0.93-1.08) L 04/09/17 17:15 APTT 28.2 Seconds (25.1-36.5) 04/09/17 17:15 - Constitutional Appears: Non-toxic, No Acute Distress, Cachectic - Head Exam Head Exam: ATRAUMATIC, NORMAL INSPECTION, NORMOCEPHALIC - ENT Exam ENT Exam: Mucous Membranes Moist - Respiratory Exam Respiratory Exam: Decreased Breath Sounds, Wheezes. absent: Rales, Rhonchi - Cardiovascular Exam Cardiovascular Exam: Tachycardia, REGULAR RHYTHM, +S1, +S2 Additional comments: Pain not reproducible to palpation - GI/Abdominal Exam GI & Abdominal Exam: Soft, Normal Bowel Sounds. absent: Tenderness - Extremities Exam Extremities Exam: Normal Inspection. 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 Troponin ordered this morning and negative at this time. Patient evaluated by Dr. Moran who ordered an echocardiogram. Pain may be due to metastases. Patient using BIPAP at night, comfortably. Patient remains on nasal cannula throughout the day. Patient evaluated by ENT who recommend no emergent intervention and flonase to reduce post nasal drip. Continue to monitor closely. Plan discussed with Dr. Ferreira. Gianna, PGY-2
--- NOTE | 2017-04-12 14:51 | CON ---
DATE: CONSULT SERVICE: Cardiology. REASON FOR CONSULTATION AND FOLLOWUP: Chest pain left sided, cardiac evaluation, COPD, and history of esophageal cancer. BRIEF CLINICAL HISTORY: This is a 71-year-old male with past medical history significant for esophageal cancer involving the paraesophageal lymph node; history of COPD; history of gastroesophageal reflux; history of advanced COPD, on home oxygen, steroid dependent, came in with respiratory distress, managed by noninvasive ventilator accompanying with the chest pain on taking deep breath and coughing, very minimal tenderness, but mostly the chest pain increases on taking a deep breath. Denies any prior episode of chest pain. The patient had chest pain since Saturday. PAST MEDICAL HISTORY: Significant for esophageal cancer, gastroesophageal reflux, history of melanoma in the past, history of right upper lobe cavitary lesion, history of COPD, history of radiation therapy, history of BPH, history of anxiety disorder, depression, and on home oxygen. SOCIAL HISTORY: Ex-smoker, quit 10 years ago. Denies any history of alcohol abuse. FAMILY HISTORY: No significant history of coronary artery disease, diabetes or hypertension. ALLERGIES: NO KNOWN DRUG ALLERGIES. CURRENT MEDICATIONS: The patient, before he came to the hospital, was taking Advair, Lexapro, Pulmicort nebulizer treatment, albuterol, Mucomyst inhalation, Valium, tramadol, acetaminophen, combination of Flomax, sucralfate, Daliresp, quinine sulfate, , Lyrica, multivitamin, Megace, prednisone, guaifenesin, and Xanax. REVIEW OF SYSTEMS: As per HPI. Complaining of chest pain on taking a deep breath and coughing, left-sided. He has to hold his chest when coughs. PHYSICAL EXAMINATION: VITAL SIGNS: Temperature afebrile, heart rate 82, and blood pressure 150/97. HEENT: PERRLA. Extraocular muscles intact. NECK: Supple. No carotid bruits. No thyromegaly. CHEST: Clear to auscultation. HEART: S1 and S2. Regular. ABDOMEN: Soft. EXTREMITIES: Clubbing and cyanosis negative. LABORATORY DATA: Blood workup as follows; WBC 18, hemoglobin , hematocrit 32.5, and platelet count 273. Chemistry shows sodium 135, potassium 4.4, chloride 95, carbon dioxide 35, anion gap of 9, BUN 16, and creatinine 0.5. First troponin is negative. EKG showed normal sinus, poor R wave progression, unchanged from 03/22/2017. IMPRESSION: A 71-year-old male with past medical history significant for stage III esophageal cancer; advanced chronic obstructive pulmonary disease, on home oxygen; right upper lobe cavitary lesion, complaining of chest pain, which is atypical, increases on taking a deep breath and coughing, has to hold the chest. First troponin was negative. RECOMMENDATIONS: Repeat troponin in the morning. Lipid profile, TSH, hemoglobin A1c, mag and phosphorus level, and also order echo, though the patient is complaining of chest pain, which is atypical, looks like more musculoskeletal related to the COPD disease or underlying esophageal malignancy. We will follow with you. Discussed the case with Resident taking care of the patient. In the interim, continue aggressive treatment for COPD. Continue baby aspirin. Continue morphine. Overall, the patient's condition is critical. Long-term prognosis is extremely guarded. Code status appear for DNR. We will follow. We will get lipid profile, TSH, hemoglobin A1c, and magnesium and phosphorus. Further recommendation will depend on the hospital course and finding of initial workup. We will also add troponin in the morning assessment drawn. The chest pain appears to be atypical. Thank you Dr. Ferreira for providing us the opportunity in taking care of the patient, Demi Anurag. Jesika Moran MD
[2017-04-12] MEDS: Sucralfate 1 gm/10 ml Oral Susp UD PO SCH (15:45)
--- NOTE | 2017-04-12 18:17 | CARD ---
APPROVED REPORT EXAM: Two-dimensional and M-mode echocardiogram with Doppler and color Doppler. INDICATION Chest Pain Aortic Valve AoV Peak Jcrcjvej778.0cm/sAoV VTI32.2cmAO Peak GR.17mmHg LVOT Peak Gguzjmdb560.0cm/sLVOT VTI20.00cmAO Mean GR.10mmHg Mitral Valve MV E Hzhyghqo37.3cm/sMV A Kuyeohbl953.0cm/sE/A ratio0.5 TDI Lateral E' Peak V11.30cm/sMedial E' Peak V7.91cm/sE/Lateral E'8.5 E/Medial E'12.2 Pulmonary Valve PV Peak Obiexqcq674.0cm/sPV Peak Grad.10mmHg Tricuspid Valve TR Peak Dubmymfr746fs/sRAP VMSSPSXM61ncCpDB Peak Gr.39mmHg [id number] LEFT VENTRICLE The left ventricle is normal size. There is mild to moderate concentric left ventricular hypertrophy. The left ventricular function is normal.EF60-65% There is normal LV segmental wall motion. Transmitral Doppler flow pattern is Grade III-reversible restrictive diastolic dysfunction. No left ventricle thrombus noted on this study. There is no ventricular septal defect visualized. There is no left ventricular aneurysm. There is no mass noted in the left ventricle. RIGHT VENTRICLE The right ventricle is normal size. There is normal right ventricular wall thickness. The right ventricular systolic function is normal. ATRIA The left atrium is mildly dilated. The right atrium size is normal. The interatrial septum is intact with no evidence for an atrial septal defect. AORTIC VALVE The aortic valve is calcified and displays decreased opening. There is trace aortic regurgitation. There is moderate valvular aortic stenosis. There is no aortic valvular vegetation. MITRAL VALVE The mitral valve is calcified but opens well. Mitral annular calcification is severe. Mitral regurgitation is moderate. There is no mitral valve stenosis. There is no evidence of mitral valve prolapse. TRICUSPID VALVE The tricuspid valve leaflets are thickened , but open well. There is mild to moderate tricuspid regurgitation.RVSP-49 mmof Hg. There is no tricuspid valve stenosis. There is no tricuspid valve prolapse or vegetation. PULMONIC VALVE The pulmonic valve is not well visualized. GREAT VESSELS The aortic root is normal in size. The ascending aorta is normal in size. The pulmonary artery is normal. The IVC is normal in size and collapses >50% with inspiration. PERICARDIAL EFFUSION There is no pleural effusion. There is no pericardial effusion. <Conclusion> The left ventricle is normal size. There is mild to moderate concentric left ventricular hypertrophy. The left ventricular function is normal.EF60-65% There is trace aortic regurgitation. Mitral regurgitation is moderate. There is mild to moderate tricuspid regurgitation.RVSP-49 mmof Hg. TDS, Limited views were obtained, pt was very short of breath at the time of sdtudy.
[2017-04-12] MEDS: Benzocaine/Menthol (Cepacol) Lozenge MT PRN (21:31)
--- NOTE | 2017-04-12 23:11 | PN ---
DATE: 04/12/2017 PULMONARY PROGRESS NOTE REFERRING PHYSICIAN: Abhijeet Vigil MD SUBJECTIVE: He is lying in the bed, on supplemental oxygen. Night was unremarkable. Tolerated BiPAP well. Again, had left-sided around fifth or sixth rib tenderness, got better with morphine. No hemoptysis. No hematochezia. No hematuria. No diarrhea reported. OBJECTIVE: GENERAL: In no acute distress. VITAL SIGNS: Temperature is 98, heart rate is 88, respiratory rate is 20, blood pressure is 100/56, and pulse oximetry is 95% on nasal cannula. HEENT: Moist mucous membrane. Crowded airway. NECK: Supple. No JVD. LUNGS: Have a poor airflow with a prolonged respiratory failure. HEART: S1 and S2. ABDOMEN: Soft, nontender. No organomegaly. EXTREMITIES: There is no edema. NEUROLOGIC: Awake and alert, follows simple commands. MEDICATIONS: He is on Mucomyst inhaled q.6 hours, albuterol/Atrovent nebulizer q.6 hours p.r.n., Brovana inhaled twice a day, Carafate 1 gm twice a day, Cepacol lozenges q.3 hours, Claritin 10 mg daily, Ecotrin 81 mg daily, Flomax 0.4 mg daily, Lexapro 5 mg daily, Megace 100 mg daily, morphine 1 mg q.3 hours p.r.n., Mucinex LA 600 mg q.6 hours, nystatin oral swish four times daily, Protonix 40 mg daily, Pulmicort inhaled twice a day, quinine 324 mg daily, Reglan 5 mg three times a day, Singulair 10 mg at bedtime, Solu-Medrol 40 mg q.12 hours, Spiriva 18 mcg daily, Tessalon Perles 100 mg three times a day, multivitamins daily, Ultracet 37.5/325 mg one tablet q.12 hours, valium 5 mg at bedtime, Xanax 0.25 mg three times a day p.r.n., and Xopenex q.6 hours p.r.n. LABORATORY DATA: Shows hemoglobin 10, hematocrit 32.5, WBC 18.2, platelet is 273. Sodium 135, potassium 4.4, chloride 95, bicarbonate 36, BUN 16, creatinine 0.5, glucose 113. Hemoglobin A1c 5.7. Phosphorus 3.6, magnesium 2.1, LDH 372, total protein less than 2.0, troponin of 0.01, cholesterol 176, TSH is 0.29. Influenza A and B have been negative. Microbiology, blood culture and urine culture, there is no growth. He had echocardiogram done today, which shows right ventricular systolic pressure is 49, LV ejection fraction is 60% to 65%. IMPRESSION AND PLAN: Severe obstructive lung disease, respiratory failure, requiring noninvasive ventilation; right upper lobe cavitary lesion; esophageal cancer, being on radiation therapy; gastroesophageal reflux disease; anxiety disorder; depression; left-sided bony pain, latest MRI which was done four days ago at outpatient according to report from Dr. Ferreira, it has metastatic disease. There is no mention of left sided bone. I am going to go ahead and order a bone scan to assure there is no metastatic disease to the left chest area. Continue IV and inhaled bronchodilator, pain management. Overall poor prognosis. Thank you and we will follow with you. Jesika Srivastava MD
[2017-04-13] MEDS: Acetylcysteine 20% Inhal Soln (4ml) IH SCH ×4 (01:20→19:15)
[2017-04-13] MEDS: Morphine 2 mg/ml ISec IVP PRN (02:08)
[2017-04-13] MEDS: Sucralfate 1 gm/10 ml Oral Susp UD PO SCH ×2 (05:51→16:57)
[2017-04-13] MEDS: guaiFENesin 600 mg ER Tab PO SCH ×4 (05:51→20:58)
[2017-04-13] MEDS: Pantoprazole 40 mg EC Tab PO SCH (05:51)
[2017-04-13] MEDS: Morphine 5 MG/ML SYRINGE IVP PRN ×4 (05:51→20:58)
[2017-04-13] MEDS: Arformoterol 15 mcg/2 ml Inh Sol IH SCH ×2 (08:00→19:10)
[2017-04-13] MEDS: Budesonide 0.5 mg/2 ml Inhal Susp UD IH SCH ×2 (08:04→19:10)
[2017-04-13] MEDS: MethylPREDNISolone 40 mg Vial IVP SCH ×2 (09:19→21:00)
[2017-04-13] MEDS: Multivitamin With Minerals Tab PO SCH (09:20)
[2017-04-13] MEDS: Nystatin 100,000 Units/ml Oral Susp 5 ml UD PO SCH ×5 (09:20→21:09)
[2017-04-13] MEDS: Megestrol Acetate 40 mg/ml Cup PO SCH (09:20)
[2017-04-13] MEDS: Tiotropium 18 mcg Cap For Inhalation IH SCH (09:20)
[2017-04-13] MEDS: Albuterol 0.083% Inhal Sol (2.5 mg/3 mL) UD INH PRN (10:54)
[2017-04-13] MEDS: TraMADol/Apap 37.5/325 mg Tab PO SCH ×2 (11:19→21:10)
[2017-04-13] MEDS: QUININE SULFATE 324 MG PO SCH (11:20)
[2017-04-13] MEDS: Lidocaine 5% Patch TD SCH (16:58)
[2017-04-13] MEDS: Levalbuterol 0.63 MG/3 ML Inhal Soln UD IH PRN (19:11)
[2017-04-13] MEDS: Benzocaine/Menthol (Cepacol) Lozenge MT PRN (20:57)
--- NOTE | 2017-04-13 21:09 | PN ---
DATE: 04/13/2017 This is [facility] visit on the medical floor. For Dr. Ferreira. SUBJECTIVE: The patient is a 71-year-old male sitting up in the chair, his at the bedtime, with oxygen on, having had an echocardiogram done yesterday as per Dr. Moran for tachycardiac changes. However on review of the patient's medications, Reglan was added to his regimen which was cut back as per Dr. Srivastava with improvement in his tachycardiac changes. The patient's echocardiogram was read as [id number] concentric left ventricular hypertrophy with an ejection fraction of 60% to 65%, trace aortic regurgitation, and moderate mitral regurgitation. There is no labored breathing at this point; however, supplemental oxygen is necessary for this patient as per Dr. Srivastava. He continues on pureed diet with the patient appearing cachectic. He does describe significant discomfort to the left lateral chest with cardiac evaluation essentially negative, possibly metastasis to the bone with suspicious findings there with his morphine 1 mg q. 3 hours not as effective as it was initially with increase in the dose to be given. OBJECTIVE/PHYSICAL EXAMINATION: VITAL SIGNS: Temperature 97.9, pulse 81, respirations 20, blood pressure 109/69, and pulse oximetry of 96% with BiPAP being given. GENERAL: He appears cachectic. HEENT: Temples are sunken, oxygen is on. Tongue is moist. NECK: Supple. HEART: Regular rate. LUNGS: Decreased breath sounds. Bilateral scattered rhonchi. ABDOMEN: Scaphoid, soft, and nontender. EXTREMITIES: No edema. SKIN: Warm and dry. NEUROLOGIC: Awake and alert. Speaks short sentences due to his shortness of breath. LABORATORY DATA: The patient's labs were done yesterday, will be repeated in the morning. Echocardiogram as above. ASSESSMENT. The assessment for his patient is that of end-stage chronic obstructive lung disease, T3N1M0 adenocarcinoma of the esophagus, exacerbation of chronic obstructive pulmonary disease, cavitary lung lesion, pseudomonas abscess history, cachexia, malignancy, failure to thrive, stenosis of esophagus with pureed diet continued, gastroesophageal reflux disease, history of melanoma. The patient did have a head CT scan done in outpatient facility with those results not available at this time; however, the results were reviewed by Dr. Ferreira with the patient's with worsening of his condition unfortunately noted. The patient at present was not informed of the report at his 's request for now. PLAN: Plan for this patient will be to continue present medical regimen. We will increase his narcotic analgesics. His Reglan was cut back. We will offer a Lidoderm patch for discomfort with consideration for further testing including a bone scan as per Dr. Srivastava with his labs repeated in the morning. His medications to continue. Prognosis for this patient is guarded. Abhijeet Vigil MD
--- NOTE | 2017-04-13 23:34 | PN ---
PULMONARY PROGRESS NOTE DATE: 04/13/2017 REFERRING PHYSICIAN: Abhijeet Vigil MD SUBJECTIVE: He is sitting up in the chair, is at beside. Complaining of left-sided muscular bony pain. Awaiting for morphine to be given. Night was unremarkable. Tolerated BiPAP well. Still have cough with sputum production. No nausea, no vomiting, no diarrhea, no leg pain and no leg swelling. PHYSICAL EXAMINATION: GENERAL: Hnvg-[id number] distress with muscular dull pain and shortness of breath. VITAL SIGNS: Temperature is 98, heart rate is 56, respiratory rate is 20, blood pressure is 109/69, and pulse ox 95% on BiPAP. HEENT: Moist mucous membrane. No ulcer or thrush. NECK: Supple. No JVD. LUNGS: Have scattered rhonchi and wheezing. HEART: S1 and S2. Has a point tenderness on the fifth and, sixth intercostal area. ABDOMEN: Soft and nontender. No organomegaly. EXTREMITIES: There is no edema. NEUROLOGIC: Awake and alert. Follows simple comments. MEDICATIONS: He is on Mucomyst 20% inhaled q. 6 hours, albuterol nebulizer treatment q. 6 hours p.r.n., Brovana inhaled twice a day, Carafate 1 gm twice a day, Cepacol lozenges q. 3 hours, Claritin 10 mg daily, Ecotrin 81 mg daily, Flomax 0.4 mg daily, Lexapro 5 mg daily, lidocaine patch effected area, Megace 400 mg daily, morphine 3 mg q. 3 hours p.r.n., Mucinex LA 600 mg q. 6 hours, nystatin oral suspension 5 mL four times daily, Protonix 40 mg daily, Pulmicort inhaled twice a day, quinine sulfate 324 mg daily, Reglan 5 mg three times a day, Singulair 10 mg daily, Solu-Medrol 40 mg q. 12 hours, Spiriva capsule inhaled daily, Tessalon Perles 100 mg three times a day, multivitamins daily, Ultracet 37.5/325 mg one tablet q. 12 hours, valium 5 mg at bedtime, and Xanax 0.25 mg three times a day p.r.n. LABORATORY DATA: Reviewed, no new lab is available since yesterday. Microbiology, blood culture and urine culture, there is no growth. IMPRESSION AND PLAN: Severe obstructive lung disease, respiratory failure, requiring noninvasive ventilation; right upper lobe cavitary lesion; esophageal cancer, status post radiation therapy, gastroesophageal reflux disease; anxiety disorder; depression; latest PET scan according to Dr. Ferreira seem like metastatic disease involving lung, liver, and bone, left sided pain seems to like muscular and bony pain. Case discussed with Oncology services. We will get bone scan. Agree with increasing morphine. Continue bilevel positive airway pressure while sleeping and/or respiratory distress. IV and inhaled bronchodilator. Gastric prophylaxis. Sequential compression device to lower extremity. Thank you and we will follow with you. Jesika Srivastava MD
[2017-04-14] MEDS: guaiFENesin 600 mg ER Tab PO SCH ×5 (01:38→22:26)
[2017-04-14] MEDS: Morphine 5 MG/ML SYRINGE IVP PRN ×3 (03:34→22:19)
[2017-04-14] MEDS: Levalbuterol 0.63 MG/3 ML Inhal Soln UD IH PRN ×2 (04:30→13:01)
[2017-04-14] MEDS: Sucralfate 1 gm/10 ml Oral Susp UD PO SCH ×2 (06:10→18:39)
[2017-04-14] MEDS: Pantoprazole 40 mg EC Tab PO SCH (06:10)
[2017-04-14 07:39] LABS: GRAN # 25.34 (1.4-6.5); HEMOGLOBIN 8.8 g/dL (14.0-18.0); LYMPH # 0.2 (1.2-3.4); LYMPH % 0.8 % (22.0-35.0); MEAN CELL VOLUME 88.6 fl (80.0-105.0); MEAN CORPUSCULAR HEMOGLOBIN 27.8 pg (25.0-35.0); MEAN CORPUSCULAR HGB CONC 31.3 g/dl (31.0-37.0); MEAN PLATELET VOLUME 9.2 fl (7.0-11.0); MONO # 0.9 (0.1-0.6); MONO % 3.2 % (1.0-6.0); PLATELET COUNT 236 10^3/uL (120.0-450.0); RBC 3.17 10^6/uL (3.5-6.1); RED CELL DISTRIBUTION WIDTH 15.8 % (11.5-14.5)
[2017-04-14 07:48] LABS: WHITE BLOOD COUNT 26.4 10^3/ul (4.5-11.0)
[2017-04-14] MEDS: Arformoterol 15 mcg/2 ml Inh Sol IH SCH ×2 (08:08→20:48)
[2017-04-14] MEDS: Budesonide 0.5 mg/2 ml Inhal Susp UD IH SCH ×2 (08:08→20:48)
[2017-04-14 08:12] LABS: ALBUMIN 2.7 g/dL (3.0-4.8); ALT/SGPT 25 U/L (7-56); AST/SGOT 17 U/L (17-59); BLOOD UREA NITROGEN 19 mg/dL (7-21); CALCIUM 10.4 mg/dL (8.4-10.5); GFR AFRICAN-AMERICAN > 60; GFR NON-AFRICAN AMERICAN > 60
[2017-04-14] MEDS: Nystatin 100,000 Units/ml Oral Susp 5 ml UD PO SCH ×3 (10:58→18:40)
[2017-04-14] MEDS: QUININE SULFATE 324 MG PO SCH (10:58)
[2017-04-14] MEDS: Multivitamin With Minerals Tab PO SCH (10:59)
[2017-04-14] MEDS: Tiotropium 18 mcg Cap For Inhalation IH SCH (10:59)
[2017-04-14] MEDS: Megestrol Acetate 40 mg/ml Cup PO SCH (11:00)
[2017-04-14] MEDS: MethylPREDNISolone 40 mg Vial IVP SCH ×2 (11:00→22:19)
[2017-04-14 11:13] LABS: BAND 2 % (0-2); LYMPHOCYTE 3 % (22.0-35.0); MONOCYTE 4 % (1.0-6.0); NEUTROPHIL 91 % (50.0-70.0)
[2017-04-14] MEDS: TraMADol/Apap 37.5/325 mg Tab PO SCH ×2 (12:36→22:20)
[2017-04-14] MEDS: Acetylcysteine 20% Inhal Soln (4ml) IH SCH ×3 (13:02→20:48)
[2017-04-14] MEDS ORDERED: Morphine 5 MG/ML SYRINGE IVP PRN (14:00)
[2017-04-14] MEDS: Lidocaine 5% Patch TD SCH (14:33)
[2017-04-14] MEDS: Meropenem IV 1 gm in NS 50 ML IVPB SCH ×2 (18:39→22:22)
[2017-04-14 18:43] LABS: TROPONIN I < 0.01 ng/mL
--- NOTE | 2017-04-14 19:23 | PN ---
DATE: 04/14/2017 This is [facility] visit on the medical floor. For Dr. Ferreira. SUBJECTIVE: The patient is a 71-year-old male seen sitting up in his chair, leaning forward with his at the bedside. BiPAP is on with the patient having had his room changed as he is no longer on telemetry, after evaluation by Dr. Moran, Cardiology. The patient suffers from T3 N1 M0 adenocarcinoma of the esophagus with severe end-stage COPD with continuous oxygen as necessary. He was noted to have a cavitary lesion of the lung with suspicion for metastatic changes there. He has a history of stenosis of the esophagus and continues on a pureed diet. The patient is cachectic. At present, he reports his pain is now better after an adjust of his pain medication dose was done. The patient is otherwise appearing in no acute distress. PHYSICAL EXAMINATION: VITAL SIGNS: Temperature is 98.1, pulse 91, respirations 20, blood pressure of 117/68, and pulse oximetry 92%. GENERAL: He appears cachectic. HEENT: Temples are sunken, oxygen is on. NECK: Supple. HEART: Tachy rate, regular rhythm. LUNGS: Decreased breath sounds. Occasional rhonchi. ABDOMEN: Scaphoid, soft, and nontender. EXTREMITIES: No edema. SKIN: Warm and dry. NEUROLOGIC: Awake and alert with weakness to community product specialist. LABORATORY DATA: The patient's labs were done. White blood cell count of 26.4; hemoglobin is now 8.8, 2 days prior it was 10.1, possibly heme-constricted; hematocrit 28.1, and platelet count of 236,000 with a chem metabolic panel showing a creatinine of 0.5, BUN of 19 with carbon dioxide level 37, chloride of 92 with normal sodium of 134, total protein of 5.5, albumin is 2.7, and TSH is 0.29. ASSESSMENT: For this patient is that of severe end-stage chronic obstructive pulmonary disease, history of respiratory failure, cavitary lesion, esophageal cancer status post radiation, gastroesophageal reflux disease, anxiety, depression with metastatic changes on recent PET CT, to be addended to this note. Cachexia malignancy, intractable pain of cancer, hyper thyroid indices on his TSH, failure to thrive, diet restricted to pureed, history of melanoma. PLAN: For this patient, after conversation with Dr. Ferreira, is to continue his present medical regimen. We will wait a bone scanwhich was ordered by Dr. Srivastava, adjustment of his pain medications was again done. Stool for occult blood will be tested for his anemic indices at present. We will type and cross for 2 units of packed red blood cells. Repeat the labs in the morning. We will also adjust his Xanax dose to q.i.d p.r.n. for his anxiety. His steroids remained the same as 40 IV q. [address] Srivastava. The prognosis for this patient is guarded. Also, for the patient's history of constipation, we will add Amitiza from home one dose daily once it is brought in and identified by the pharmacy. We will continue Megace for his appetite with considerations for transfusions tomorrow should it be necessary. Abhijeet Vigil MD
--- NOTE | 2017-04-14 23:00 | PN ---
DATE: 04/14/2017 REFERRING PHYSICIAN: Dr. Abhijeet Vigil. SUBJECTIVE: The patient is sitting up in the chair, did not have a good night, been very lethargic, tired and down. is at bedside, multiple night awakening on BiPAP. Cough is better. He claims he has short of breath. No nausea. No vomiting. No diarrhea. No leg pain or leg swelling. OBJECTIVE: GENERAL: In no acute distress. VITAL SIGNS: Temperature is 98, heart rate is 92-117, respiratory rate is 20, blood pressure 120/65, pulse ox 96% on BiPAP. HEENT: Moist mucous membrane. No ulcer or thrush noted. NECK: Supple. No JVD. LUNGS: Has fair airflow, has rhonchi and wheezing. HEART: S1 and S2. ABDOMEN: Soft, nontender. No organomegaly. EXTREMITIES: There is no edema. NEUROLOGICALLY: Awake, alert. Follow simple command. MEDICATIONS: He is on Mucomyst 20% inhaled q. 6 hours, DuoNeb q. 6 hours p.r.n., Brovana inhaled twice a day, Carafate 1 gm twice a day, Cepacol lozenges q. 3 hours p.r.n., Claritin 10 mg daily, Ecotrin 81 mg daily, Flomax 0.4 mg daily, Lexapro 5 mg daily, lidocaine patch effected area daily, Megace 400 mg daily, morphine 2 mg q. 3 hours p.r.n., Mucinex LA 600 mg q. 6 hours, nystatin oral suspension, Protonix 40 mg daily, Pulmicort inhaled twice a day, quinine sulfate 324 mg daily, Reglan 5 mg three times a day, Singulair 10 mg daily, Solu-Medrol 40 mg q. 12 hours, Spiriva inhaled daily, Tessalon Perles 100 mg three times a day, multivitamins daily, Ultracet 37.5/325 mg q. 12 hours, valium 5 mg at bedtime, Xanax 0.25 mg q. 8 hours, Xopenex inhaled q. 6 hours. LABORATORY DATA: Shows hemoglobin 8.8, hematocrit 28.1, WBC 26,000, and platelets 236. Sodium 134, potassium 4.5, chloride 93, bicarbonate 37, BUN 19, and creatinine 0.5, glucose 114, calcium is 10.4. AST is 17, ALT 25, alkaline phosphatase is 51, albumin is 2.7. Microbiology, blood culture, urine culture, there is no growth. Had echocardiogram done on 04/12/2017 shows right ventricular systolic pressure is 49, LV ejection fraction is 60-65. IMPRESSION AND PLAN: Severe obstructive lung disease, metastatic esophageal cancer involving liver and bone, history of gastroesophageal reflux disease; anxiety disorder, depression, not feeling comfortable or very sleepy and lethargic, so Morphine was decreased to 2 mg q. 3 hours p.r.n. basis. We will also discontinue Reglan. We will get cardiac enzymes. Continue bronchodilators. Gastric prophylaxis. Thank you and we will follow with you. Jesika Srivastava MD
[2017-04-15] MEDS: Acetylcysteine 20% Inhal Soln (4ml) IH SCH ×4 (02:38→19:50)
--- NOTE | 2017-04-15 03:07 | CON ---
DATE: 04/14/2017 LOCATION: The patient was seen in room 343, bed 1. CHIEF COMPLAINT: Shortness of breath and weakness for several days. HISTORY OF PRESENT ILLNESS: This is a 71-year-old male with history of end-stage chronic obstructive lung disease, chronic respiratory failure on home O2 therapy. The patient with a history of esophageal adenocarcinoma of the esophagus with a latest PET scan showing involvement of the liver, lung, and bone. Also history of coronary artery disease and history of Pseudomonas, lung cavity, pyogenic abscess. He is a longtime heavy smoker. He is now admitted on this admission with respiratory failure. The patient has significant shortness of breath. He is cachectic. He is struggling for air, and he has had low-grade fevers. He has cough that is productive. It is greenish in color. REVIEW OF SYSTEMS: He has no abdominal pain, diarrhea, or constipation. No dysuria or frequency. PAST MEDICAL HISTORY: Significant for end-stage chronic obstructive lung disease, chronic respiratory failure, on home O2 therapy, basal cell cancer, coronary artery disease, adenocarcinoma of the esophagus with what appears to be mets to the liver, lung, and bone, based on the latest PET scan. The patient has a history of pseudomonas, lung cavity, pyogenic abscess. PAST SURGICAL HISTORY: Significant for appendectomy. ALLERGIES: THE PATIENT HAS NO KNOWN ALLERGIES. MEDICATIONS: At home are reviewed. PHYSICAL EXAMINATION: GENERAL: The patient is in bed, appearing chronically ill, cachectic, wasting syndrome. VITAL SIGNS: Temperature of 99.3, BMI is only 17, heart rate of 118, respiratory rate of 24 or 28, blood pressure is 118/60. HEENT: Reveals temporal wasting. NECK: Supple. LUNGS: Have decreased breath sounds. HEART: Normal S1 and S2. ABDOMEN: Soft, nontender. LABORATORY DATA: Reveals a white count is up to 26,000, hemoglobin of 8, platelets of 236. Chemistries reveal a BUN of 19, creatinine of 0.9. Urinalysis is noted. Influenza is negative. Blood cultures have no growth. Urine cultures have no growth. DIAGNOSTIC DATA: Chest x-ray is noted. ASSESSMENT AND PLAN: This is a 71-year-old male who has adenocarcinoma of the esophagus with metastasis to the liver, lung and bones based on PET scan, end-stage chronic obstructive pulmonary disease, chronic respiratory failure on home O2 therapy, and coronary artery disease. He looks cachectic with shortness of breath, productive cough, low-grade fevers, hypoxia with a pO2 down to 92%. Number one is severe sepsis and healthcare-associated pneumonia. We will start the patient on meropenem and doxycycline. Blood cultures have been reported to be negative. We will check on a sputum culture, procalcitonin, and overall prognosis is quite poor for this patient who is on Solu-Medrol also, and the patient is waiting for a bone scan and case discussed with Dr. Abhijeet Vigil. Prognosis is grave. Kwame Horta MD
[2017-04-15] MEDS: Sucralfate 1 gm/10 ml Oral Susp UD PO SCH ×2 (05:59→16:10)
[2017-04-15] MEDS: Meropenem IV 1 gm in NS 50 ML IVPB SCH ×3 (05:59→21:44)
[2017-04-15] MEDS: Pantoprazole 40 mg EC Tab PO SCH (06:00)
[2017-04-15] MEDS: guaiFENesin 600 mg ER Tab PO SCH ×4 (06:00→21:41)
[2017-04-15 06:32] LABS: BASO # 0.01 K/mm3 (0.0-2.0); GRAN # 26.48 (1.4-6.5); GRAN % 96.6 % (50.0-68.0); HEMOGLOBIN 8.8 g/dL (14.0-18.0); LYMPH # 0.3 (1.2-3.4); MEAN CELL VOLUME 88.5 fl (80.0-105.0); MEAN CORPUSCULAR HEMOGLOBIN 27.3 pg (25.0-35.0); MEAN CORPUSCULAR HGB CONC 30.9 g/dl (31.0-37.0); MEAN PLATELET VOLUME 9.2 fl (7.0-11.0); MONO # 0.7 (0.1-0.6); MONO % 2.4 % (1.0-6.0); RBC 3.22 10^6/uL (3.5-6.1); RED CELL DISTRIBUTION WIDTH 15.9 % (11.5-14.5)
[2017-04-15 06:42] LABS: WHITE BLOOD COUNT 27.4 10^3/ul (4.5-11.0)
[2017-04-15 07:42] LABS: ALB/GLOB RATIO 0.9 (1.1-1.8); ALBUMIN 2.7 g/dL (3.0-4.8); ALT/SGPT 29 U/L (7-56); AST/SGOT 18 U/L (17-59); BLOOD UREA NITROGEN 20 mg/dL (7-21); CALCIUM 10.6 mg/dL (8.4-10.5); GFR AFRICAN-AMERICAN > 60; GFR NON-AFRICAN AMERICAN > 60
[2017-04-15] MEDS: Arformoterol 15 mcg/2 ml Inh Sol IH SCH ×2 (07:48→19:50)
[2017-04-15] MEDS: Budesonide 0.5 mg/2 ml Inhal Susp UD IH SCH ×2 (07:48→19:50)
[2017-04-15] MEDS: Levalbuterol 0.63 MG/3 ML Inhal Soln UD IH PRN (07:48)
[2017-04-15] MEDS: Morphine 5 MG/ML SYRINGE IVP PRN ×4 (09:31→21:40)
[2017-04-15] MEDS ORDERED: AMITIZA 24 MCG PO SCH (10:00)
[2017-04-15] MEDS: Tiotropium 18 mcg Cap For Inhalation IH SCH (10:36)
[2017-04-15] MEDS: Multivitamin With Minerals Tab PO SCH (10:37)
[2017-04-15] MEDS: Megestrol Acetate 40 mg/ml Cup PO SCH (10:39)
[2017-04-15] MEDS: Nystatin 100,000 Units/ml Oral Susp 5 ml UD PO SCH ×2 (10:39→18:02)
[2017-04-15] MEDS: Lidocaine 5% Patch TD SCH (10:41)
[2017-04-15] MEDS: QUININE SULFATE 324 MG PO SCH (10:42)
[2017-04-15] MEDS: MethylPREDNISolone 40 mg Vial IVP SCH ×2 (10:42→21:41)
[2017-04-15] MEDS: TraMADol/Apap 37.5/325 mg Tab PO SCH ×2 (10:43→21:43)
--- NOTE | 2017-04-15 13:14 | PN ---
DATE: REASON FOR CONSULTATION AND FOLLOWUP: Chest pain left sided, cardiac evaluation, COPD, history of esophageal cancer, and atypical chest pain. SUBJECTIVE: The patient denies any chest pain. Complained of shortness of breath on oxygen. OBJECTIVE: GENERAL: Mild respiratory distress, breathing oxygen, getting new DuoNeb nebulizer treatment. VITAL SIGNS: As follows; temperature 100.1, heart rate 90, and blood pressure 110/62. HEENT: PERRLA. Extraocular muscles intact. NECK: Supple. No carotid bruits or thyromegaly. CHEST: Clear to auscultation. HEART: S1 and S2, regular. ABDOMEN: Soft. EXTREMITIES: Clubbing and cyanosis negative. LABORATORY DATA: Blood workup as follows; WBC 27.4, hemoglobin , hematocrit 28.5, and platelet count 231. Chemistry shows sodium of 134, potassium of 4.4, chloride of 94, carbon dioxide of 38, anion gap of 6, BUN of 20, and creatinine of 0.5. Total protein 5.5, albumin 2.7, and albumin/globulin ratio 0.9. IMPRESSION: Shortness of breath, esophageal cancer, and atypical chest pain, so far no evidence of acute myocardial infarction, advanced chronic obstructive pulmonary disease. The patient had echocardiography done that shows ejection fraction of 55%, trace aortic regurgitation, moderate mitral regurgitation, [id number] tricuspid regurgitation, esophageal cancer with adenocarcinoma with metastases to the liver, lung, and bone recent PET scan, chronic obstructive pulmonary disease, atypical chest pain, not cardiac. RECOMMENDATIONS: Aggressive continue medical treatment, so far troponin remains negative. No evidence of acute CO. Aggressive treatment for COPD. Overall, the patient's condition is critical. Long-term prognosis is guarded. Continue supportive care. Protein-calorie malnutrition moderate, which was not present on admission, also history of anemia. Jesika Moran MD
--- NOTE | 2017-04-15 14:58 | NM ---
PROCEDURE: Whole Body Bone Scan HISTORY: metastatic disease COMPARISON: 03/05/2017 CT thorax. TECHNIQUE: Following administration of 24.0 miCu of Tc MDP multiplanar whole body images were obtained. FINDINGS: Evidence for bony metastatic disease: None. Degenerative uptake: Thoracolumbar spine, findings confirmed on recent CT scan. Degenerative changes identified in both hips and knees. Physiologic uptake: Normal physiologic activity in the kidneys. Other findings: None. IMPRESSION: No evidence of bony metastatic disease.
--- NOTE | 2017-04-15 17:12 | CP.PCM.PN ---
Subjective - Date & Time of Evaluation Date of Evaluation: 04/15/17 Time of Evaluation: 10:25 - Subjective Subjective: Continues to feel short of breath, no fevers overnight. Objective - Vital Signs/Intake and Output Vital Signs (last 24 hours): Temp Pulse Resp BP Pulse Ox 100.1 F H 90 18 110/62 94 L 04/15/17 00:01 04/15/17 00:01 04/15/17 00:01 04/15/17 00:01 04/15/17 00:01 Intake and Output: 04/14/17 04/15/17 18:59 06:59 Intake Total 600 Balance 600 - Medications Medications: Current Medications Acetylcysteine (Acetylcysteine 20%) 4 ml IH [id number] [facility] Last Admin: 04/15/17 02:38 Dose: Not Given Albuterol Sulfate (Albuterol 0.083% Inhal Rylee (2.5 Mg/3 Ml) Ud) 2.5 mg INH [id number] PRN PRN Reason: Shortness of Breath Last Admin: 04/13/17 10:54 Dose: 2.5 mg Alprazolam (Xanax) 0.25 mg PO QID [facility] PRN Reason: Protocol Stop: 04/21/17 14:01 Last Admin: 04/14/17 22:20 Dose: 0.25 mg Arformoterol Tartrate (Brovana) 15 mcg IH [id number] [facility] Last Admin: 04/14/17 20:48 Dose: 15 mcg Aspirin (Ecotrin) 81 mg PO DAILY [facility] Last Admin: 04/14/17 10:57 Dose: 81 mg Benzocaine/Menthol (Cepacol Sore Throat) 1 carlos MT Q3H PRN PRN Reason: Sore Throat Last Admin: 04/13/17 20:57 Dose: 1 carlos Benzonatate (Tessalon Perles) 100 mg PO TID [facility] Last Admin: 04/14/17 18:41 Dose: 100 mg Budesonide (Pulmicort Respules) 1 mg IH [id number] [facility] Last Admin: 04/14/17 20:48 Dose: 1 mg Diazepam (Valium) 5 mg PO HS [facility] PRN Reason: Protocol Last Admin: 04/14/17 22:20 Dose: 5 mg Doxycycline Hyclate (Doryx) 100 mg PO Q12 [facility] PRN Reason: Protocol Stop: 04/23/17 22:01 Last Admin: 04/14/17 22:22 Dose: 100 mg Escitalopram Oxalate (Lexapro) 5 mg PO DAILY [facility] Last Admin: 04/14/17 10:58 Dose: 5 mg Guaifenesin (Mucinex La) 600 mg PO Q6H [facility] Last Admin: 04/15/17 06:00 Dose: 600 mg Meropenem (Merrem Iv 1 Gm Premix) 50 mls @ 100 mls/hr IVPB Q8 [facility] PRN Reason: Protocol Stop: 04/23/17 18:14 Last Admin: 04/15/17 05:59 Dose: 100 mls/hr Levalbuterol HCl (Xopenex) 0.63 mg IH [id number] PRN PRN Reason: Shortness of Breath Last Admin: 04/14/17 13:01 Dose: 0.63 mg Lidocaine (Lidoderm) 1 ea TD DAILY [facility] Last Admin: 04/14/17 14:33 Dose: 1 ea Loratadine (Claritin) 10 mg PO DAILY [facility] Last Admin: 04/14/17 10:57 Dose: 10 mg Megestrol Acetate (Megace) 400 mg PO DAILY [facility] Last Admin: 04/14/17 11:00 Dose: 400 mg Methylprednisolone (Solu-Medrol) 40 mg IVP Q12 [facility] Last Admin: 04/14/17 22:19 Dose: 40 mg Montelukast Sodium (Singulair) 10 mg PO HS [facility] Last Admin: 04/14/17 22:22 Dose: 10 mg Morphine Sulfate (Morphine) 2 mg IVP Q3H PRN PRN Reason: Pain, moderate (4-7) Last Admin: 04/14/17 22:19 Dose: 2 mg Multivitamins/Minerals (Therapeutic-M Tab) 1 tab PO DAILY [facility] Last Admin: 04/14/17 10:59 Dose: 1 tab Non-Formulary Medication (Quinine Sulfate [Qualaquin]) 324 mg PO DAILY [facility] Last Admin: 04/14/17 10:58 Dose: Not Given Non Formulary Medication (Amitiza 24mcg) 0 mg PO DAILY [facility] Nystatin (Nystatin Oral Susp) 5 ml PO BID [facility] Last Admin: 04/14/17 18:40 Dose: 5 ml Pantoprazole Sodium (Protonix Ec Tab) 40 mg PO 0600 [facility] Last Admin: 04/15/17 06:00 Dose: 40 mg Sucralfate (Carafate Oral Susp) 1 gm PO 0600,1600 [facility] Last Admin: 04/15/17 05:59 Dose: 1 gm Tamsulosin HCl (Flomax) 0.4 mg PO DAILY [facility] Last Admin: 04/14/17 10:57 Dose: 0.4 mg Tiotropium [place] (Spiriva) 18 mcg IH DAILY [facility] Last Admin: 04/14/17 10:59 Dose: 18 mcg Tramadol/Acetaminophen (Ultracet 37.5/325 Mg) 1 tab PO Q12H [facility] Last Admin: 04/14/17 22:20 Dose: Not Given - Labs Labs: 04/14/17 06:25 04/14/17 06:25 PT 10.3 SECONDS (9.4-12.5) 04/09/17 17:15 INR 0.91 (0.93-1.08) L 04/09/17 17:15 APTT 28.2 Seconds (25.1-36.5) 04/09/17 17:15 - Constitutional Appears: Cachectic, Chronically Ill - Head Exam Head Exam: NORMAL INSPECTION - ENT Exam ENT Exam: Mucous Membranes Moist - Neck Exam Neck Exam: absent: Meningismus - Respiratory Exam Respiratory Exam: Decreased Breath Sounds, Wheezes (scattered) - Cardiovascular Exam Cardiovascular Exam: +S1, +S2 - GI/Abdominal Exam GI & Abdominal Exam: Soft. absent: Tenderness Assessment and Plan - Assessment and Plan (Free Text) Plan: Assessment severe sepsis due to HCAP history of severe sepsis with respiratory failure from lung cavitary lesion in the right upper lobe - lung pyogenic abscess with Pseudomonas - no evidence of TB; S/P treatment with 6 weeks of antibiotics in 2017 end-stage COPD with history of heavy smoking esophageal cancer CAD basal cell CA S/P appendectomy Plan continue Doxcycline and Merrem day 2; follow up final cx results noted Dr. Srivastava's recommendations overall prognosis is poor
[2017-04-15] MEDS: Albuterol 0.083% Inhal Sol (2.5 mg/3 mL) UD INH PRN (19:50)
--- NOTE | 2017-04-16 00:01 | PN ---
DATE: 04/15/2017 REFERRING PHYSICIAN: Abhijeet Vigil MD. SUBJECTIVE: Patient is lying in the bed. is at the bedside. Sleepy, arousable, does not feel like eating, still cough and shortness of breath. Notable change in breathing status. No nausea, no vomiting, no diarrhea. No leg pain or leg swelling. OBJECTIVE: GENERAL: In no acute distress. VITAL SIGNS: T-max is 100.1, heart rate 89, respiratory rate 21, blood pressure 128/76, pulse ox is 99% on nasal cannula. HEENT: Moist mucous membranes. Crowded airway. Mallampati score is 4. NECK: Supple. No JVD. LUNGS: Have a prolonged expiratory phase. No wheezing. HEART: S1 and S2. ABDOMEN: Soft and nontender. No organomegaly. EXTREMITIES: No edema. NEUROLOGIC: Sleepy arousable. MEDICATIONS: He is on Mucomyst which was apparently not given, albuterol/Atrovent nebulizer q.6 hours, Amitiza 25 mcg daily, Brovana inhaled twice a day, Carafate 1 gm p.o. twice a day, Cepacol lozenges q.3 hours p.r.n., Claritin 10 mg daily, doxycycline 100 mg twice a day, Ecotrin 81 mg daily, Flomax 0.4 mg daily, Lexapro 5 mg daily, lidocaine patch at affected area, Megace 400 mg daily, Merrem 1 gm IV q.8 hours, morphine 2 mg q.3 hours p.r.n., Mucinex LA 600 mg q.6 hours, nystatin 5 mL twice a day, Protonix 40 mg daily, Pulmicort inhaled twice a day, quinine 325 mg daily, Singulair 10 mg daily, Solu-Medrol 40 mg q.12 hours, Spiriva capsule daily, Tessalon Perles 100 mg three times a day, multivitamins daily, Ultracet 37.5/325 one tab q. 2 hours p.r.n., valium 5 mg at bedtime, Xanax 0.25 mg 4 times a day , Xopenex 0.63 q.6 hours p.r.n. LABORATORY DATA: Shows hemoglobin 8.8, hematocrit 28.5, WBC 27, platelet count is 231. Sodium 135, potassium 4.4, chloride 94, bicarbonate 38, BUN 20, creatinine 0.5, glucose is 138, calcium is 10.6, AST 18, ALT 29, alk phos is 62. Albumin is 2.7. Microbiology, blood culture and urine culture, there is no growth. Bone scan is unremarkable. 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 Spoke to patient's at bedside. All the questions answered. Goals discussed with her. We will change morphine to 1.5 mg q.3 hours p.r.n. Also discontinue valium, change Xanax to p.r.n. basis. Gastric prophylaxis, aspiration precaution. Encourage BiPAP use at nighttime. Thank you, and we will follow with you. Jesika Srivastava MD
[2017-04-16] MEDS: Acetylcysteine 20% Inhal Soln (4ml) IH SCH ×4 (02:32→19:55)
--- NOTE | 2017-04-16 05:43 | PN ---
DATE: 04/15/2017 LOCATION: Room 243, Bed 1. 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 He is currently in the telemetry floor because of atypical left-sided chest pain that occurred on Saturday, prompting evaluation and assessment by warping mill operator, Dr. Moran. Troponin levels have been negative. So the pain was atypical. The patient has been receiving morphine initially in the high dose, this has been cut back to 1.5 q.3 hours. Along with this, patient has also been getting Lidoderm patches placed on the chest wall itself, while the bone scan was ordered this morning, results of which will be discussed in the dictation below. SUBJECTIVE: The patient complains of pain, which is not significant, caused 2 days ago, still has significant shortness of breath, dryness of the mouth associated with the use of the CPAP machine at nighttime, still coughing up and bringing up thick phlegm. OBECTIVE: GENERAL: Patient is in mild respiratory distress, breathing oxygen, getting DuoNeb nebulizer treatment. VITAL SIGNS: T-max of 100.4, heart rate is 80, blood pressure is 110/62. HEENT: Head is normocephalic, atraumatic. Mosque muscle wasting is noted. Pupils are equal, reactive to light and accommodation. Exam of the oropharynx, there is no oropharyngeal lesion. Tongue is moist. No ulcerations are noted. No fungal infection is noted. Patient is edentulous. NECK: Supple. There is no adenopathy. No jugular venous distention noted. LUNGS: Relatively clear to percussion and auscultation with added rhonchi and wheezes posteriorly on both lung goff. HEART: Reveals PMI to be in the fifth intercostal space. S1 and S2 are normal. No gallop or murmur is heard. Patient is slightly tachycardic. ABDOMEN: Soft, scaphoid. Liver and spleen are not palpable. No other masses are palpable. EXTREMITIES: Reveal no cyanosis, clubbing, or edema. LABORATORY DATA: White count is elevated at 27.4, hemoglobin and hematocrit is holding, platelet count is increasing probably is acute phase reactant. Chemistry shows sodium of 134, K is 4.4, chloride 94, CO2 is 38, BUN is 20, creatinine 0.5. Total protein at 5.5, albumin of 2.7 and albumin/globulin ratio of 0.9. MEDICATIONS: Patient's medications were reviewed. He is on Mucomyst 20% inhaled q.6 hours, DuoNeb q. 6 hours p.r.n., Brovana inhaled twice a day, Carafate 1 g twice a day, Cepacol lozenges q. 3 hours p.r.n., Claritin 10 mg daily, Ecotrin 81 mg daily, Flomax 0.4 mg daily, Lexapro 5 mg daily, lidocaine patch to the affected area of pain daily for 12 hours, Megace 400 mg daily, morphine sulfate 1.5 mg q. 3 hours p.r.n., Mucinex LA 600 mg q. 6 hours, nystatin oral suspension, Protonix 40 mg daily, Pulmicort inhaled twice daily, quinine sulfate for leg cramps 324 mg daily, Reglan 5 mg p.o. t.i.d., Singulair 10 mg daily, Solu-Medrol 40 mg IV q.12 hours, Spiriva inhaled twice a day, Tessalon Perles 3 times a day, multivitamins, Ultracet 37.5/ mg q. 12 hours, Valium 5 mg at bedtime, Xanax 0.5 mg q. 8 hours, Xopenex inhaled q. 6 hours. Lab data shows hemoglobin and hematocrit has dropped to 8.8 and 28, white count is 27,000, platelet count is 236. Sodium is 134, K is 4.5, chloride 93, bicarbonate 37, BUN is 19, creatinine is 0.5, glucose 114, calcium is 10.4. AST 17, ALT is 25, alkaline phosphatase is 51, albumin is 2.7. Blood and urine cultures have no growth. Echocardiogram shows right ventricular systolic pressure of 49, left ventricular ejection fraction 60%-75%. 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 The PET CT done recently shows metastasis to the mediastinum, retroperitoneal area. There is lesion in the liver, lesion in the bone. History of gastroesophageal reflux disease, anxiety disorder, depression, inability to sleep, lethargy related to morphine, which has been decreased from 2 mg to 1.5 mg. Patient is on Reglan, will continue the other medications as previously described including bronchodilators. PLAN: Gastric and DVT prophylaxis. Discussed with the patient regarding the PET CT findings that was optimistic with him. We explained all the details to the on the outside earlier today. Patient's did not want me to give the exact details of what is seen on the PET CT scan to the patient, otherwise he will lose hope. In the meantime, we are going to continue our current treatments, told the patient once he gets a little better, in fact currently he is on antibiotics, given the fact his count is elevated, we will try to make sure he has been started back on antibiotics consisting of doxycycline and Merrem. We will try to make sure that infection is ruled out before planning our next course of action; options include a drug called plus/minus taxane. Time spent with the patient and the more than 80 minutes out of which 50% of the time was spent [id number] in counseling the patient, correlating the information, discussing the differential diagnosis, telling them and relaying them the facts of what the recent most bone scan shows and rest of the labs reveal. Overall prognosis is guarded. We have been cautiously optimistic with the patient and told them that if the condition continues to improve, we plan on giving to the patient targeted therapy with at least as a single agent in the future. Routine post-exam instructions have been given to the patient. Time spent with the patient was more than 80 minutes out of which 50% of the time was spent in [id number] contact discussing the entire process with the patient including the diagnosis and the prognosis. María Ferreira MD
[2017-04-16] MEDS: Sucralfate 1 gm/10 ml Oral Susp UD PO SCH ×2 (05:57→17:19)
[2017-04-16] MEDS: Pantoprazole 40 mg EC Tab PO SCH (05:57)
[2017-04-16] MEDS: Meropenem IV 1 gm in NS 50 ML IVPB SCH ×3 (05:58→22:18)
[2017-04-16] MEDS: guaiFENesin 600 mg ER Tab PO SCH ×5 (06:20→22:17)
[2017-04-16] MEDS: Arformoterol 15 mcg/2 ml Inh Sol IH SCH ×2 (08:14→19:55)
[2017-04-16] MEDS: Levalbuterol 0.63 MG/3 ML Inhal Soln UD IH PRN ×2 (08:14→13:59)
[2017-04-16] MEDS: Budesonide 0.5 mg/2 ml Inhal Susp UD IH SCH ×2 (08:15→19:55)
[2017-04-16] MEDS: Albuterol 0.083% Inhal Sol (2.5 mg/3 mL) UD INH PRN (08:15)
[2017-04-16 08:30] LABS: HEMOGLOBIN 9.3 g/dL (14.0-18.0); MEAN CELL VOLUME 89.9 fl (80.0-105.0); MEAN CORPUSCULAR HEMOGLOBIN 27.8 pg (25.0-35.0); MEAN CORPUSCULAR HGB CONC 30.9 g/dl (31.0-37.0); RBC 3.35 10^6/uL (3.5-6.1); RED CELL DISTRIBUTION WIDTH 15.8 % (11.5-14.5); WHITE BLOOD COUNT 24.6 10^3/ul (4.5-11.0)
[2017-04-16 09:13] LABS: ALBUMIN 2.5 g/dL (3.0-4.8); ALT/SGPT 35 U/L (7-56); AST/SGOT 15 U/L (17-59); BLOOD UREA NITROGEN 21 mg/dL (7-21); CALCIUM 10.6 mg/dL (8.4-10.5); GFR AFRICAN-AMERICAN > 60; GFR NON-AFRICAN AMERICAN > 60
--- NOTE | 2017-04-16 09:37 | CP.PCM.PN ---
Subjective - Date & Time of Evaluation Date of Evaluation: 04/16/17 Time of Evaluation: 09:32 - Subjective Subjective: Patient seen and examined at bedside. Patient with no acute events overnight. is at bedside. Case discussed with with and patient. Patient states he still has left sided chest pain, mainly when taking deep breaths and coughing. Denies shortness of breath, nausea, vomiting, diarrhea, headache, fever, dizziness. Objective - Vital Signs/Intake and Output Vital Signs (last 24 hours): Temp Pulse Resp BP Pulse Ox 97.8 F 79 18 126/70 96 04/16/17 06:00 04/16/17 06:00 04/16/17 06:00 04/16/17 06:00 04/16/17 06:00 Intake and Output: 04/16/17 04/16/17 06:59 18:59 Intake Total 120 Output Total 2 Balance 118 - Medications Medications: Current Medications Acetylcysteine (Acetylcysteine 20%) 4 ml IH [id number] [facility] Last Admin: 04/16/17 08:15 Dose: 4 ml Albuterol Sulfate (Albuterol 0.083% Inhal Rylee (2.5 Mg/3 Ml) Ud) 2.5 mg INH [id number] PRN PRN Reason: Shortness of Breath Last Admin: 04/16/17 08:15 Dose: 2.5 mg Alprazolam (Xanax) 0.25 mg PO QID PRN; Protocol PRN Reason: Anxiety Stop: 04/21/17 14:01 Last Admin: 04/16/17 06:22 Dose: 0.25 mg Arformoterol Tartrate (Brovana) 15 mcg IH [id number] [facility] Last Admin: 04/16/17 08:14 Dose: 15 mcg Aspirin (Ecotrin) 81 mg PO DAILY [facility] Last Admin: 04/15/17 10:37 Dose: 81 mg Benzocaine/Menthol (Cepacol Sore Throat) 1 carlos MT Q3H PRN PRN Reason: Sore Throat Last Admin: 04/13/17 20:57 Dose: 1 carlos Benzonatate (Tessalon Perles) 100 mg PO TID [facility] Last Admin: 04/15/17 18:02 Dose: 100 mg Budesonide (Pulmicort Respules) 1 mg IH [id number] [facility] Last Admin: 04/15/17 19:50 Dose: 1 mg Doxycycline Hyclate (Doryx) 100 mg PO Q12 [facility] PRN Reason: Protocol Stop: 04/23/17 22:01 Last Admin: 04/15/17 21:42 Dose: 100 mg Escitalopram Oxalate (Lexapro) 5 mg PO DAILY [facility] Last Admin: 04/15/17 10:37 Dose: 5 mg Guaifenesin (Mucinex La) 600 mg PO Q6H [facility] Last Admin: 04/16/17 06:22 Dose: 600 mg Meropenem (Merrem Iv 1 Gm Premix) 50 mls @ 100 mls/hr IVPB Q8 [facility] PRN Reason: Protocol Stop: 04/23/17 18:14 Last Admin: 04/16/17 05:58 Dose: 100 mls/hr Levalbuterol HCl (Xopenex) 0.63 mg IH [id number] PRN PRN Reason: Shortness of Breath Last Admin: 04/16/17 08:14 Dose: 0.63 mg Lidocaine (Lidoderm) 1 ea TD DAILY [facility] Last Admin: 04/15/17 10:41 Dose: 1 ea Loratadine (Claritin) 10 mg PO DAILY [facility] Last Admin: 04/15/17 10:39 Dose: 10 mg Megestrol Acetate (Megace) 400 mg PO DAILY [facility] Last Admin: 04/15/17 10:39 Dose: 400 mg Methylprednisolone (Solu-Medrol) 40 mg IVP Q12 [facility] Last Admin: 04/15/17 21:41 Dose: 40 mg Montelukast Sodium (Singulair) 10 mg PO HS [facility] Last Admin: 04/15/17 21:42 Dose: 10 mg Morphine Sulfate (Morphine) 1.5 mg IVP Q3H PRN PRN Reason: Pain, moderate (4-7) Last Admin: 04/15/17 21:40 Dose: 1.5 mg Multivitamins/Minerals (Therapeutic-M Tab) 1 tab PO DAILY [facility] Last Admin: 04/15/17 10:37 Dose: 1 tab Non-Formulary Medication (Quinine Sulfate [Qualaquin]) 324 mg PO DAILY [facility] Last Admin: 04/15/17 10:42 Dose: Not Given Amitiza 24 Mcg 0 mg PO DAILY [facility] Last Admin: 04/15/17 18:07 Dose: 0.024 mg Nystatin (Nystatin Oral Susp) 5 ml PO BID [facility] Last Admin: 04/15/17 18:02 Dose: 5 ml Pantoprazole Sodium (Protonix Ec Tab) 40 mg PO 0600 [facility] Last Admin: 04/16/17 05:57 Dose: 40 mg Sucralfate (Carafate Oral Susp) 1 gm PO 0600,1600 [facility] Last Admin: 04/16/17 05:57 Dose: 1 gm Tamsulosin HCl (Flomax) 0.4 mg PO DAILY [facility] Last Admin: 04/15/17 10:36 Dose: 0.4 mg Tiotropium [place] (Spiriva) 18 mcg IH DAILY [facility] Last Admin: 04/15/17 10:36 Dose: 18 mcg Tramadol/Acetaminophen (Ultracet 37.5/325 Mg) 1 tab PO Q12H [facility] Last Admin: 04/15/17 21:43 Dose: 1 tab - Labs Labs: 04/16/17 08:10 04/16/17 08:10 PT 10.3 SECONDS (9.4-12.5) 04/09/17 17:15 INR 0.91 (0.93-1.08) L 04/09/17 17:15 APTT 28.2 Seconds (25.1-36.5) 04/09/17 17:15 - Constitutional Appears: Non-toxic, Cachectic - Head Exam Head Exam: ATRAUMATIC, NORMAL INSPECTION, NORMOCEPHALIC - Eye Exam Additional comments: Temporal wasting present - ENT Exam ENT Exam: Mucous Membranes Dry - Respiratory Exam Respiratory Exam: Decreased Breath Sounds, Wheezes, NORMAL BREATHING PATTERN - Cardiovascular Exam Cardiovascular Exam: RRR, +S1, +S2 - GI/Abdominal Exam GI & Abdominal Exam: Soft, Normal Bowel Sounds. absent: Tenderness - Extremities Exam Extremities Exam: Normal Inspection. 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 Cardiac workup negative at this point, indicating atypical chest pain, and will resume current medications. Patient instructed to use BIPAP at night for severe COPD. Patient had pain medication decreased yesterday and has been more alert since that time. Patient with minimal respiratory distress and remains on Nasal cannula. He underwent a bone scan yesterday which demonstrated no metastasese or lesions. We will follow closely and determine next course of treatment, including possibility of chemotherapy in addition to a taxane. Will also obtain palliative care consult for advance directives. Will continue current medications. Continue to monitor closely. Plan to be discussed with Dr. Ferreira. Gianna, PGY-2
--- NOTE | 2017-04-16 10:42 | PN ---
DATE: 04/16/2017 REASON FOR CONSULTATION AND FOLLOWUP: Chest pain left-sided, atypical; cardiac evaluation; COPD; history of esophageal cancer. SUBJECTIVE: The patient complained of chest pain when taking a deep breath and coughing, mild shortness of breath on oxygen. OBJECTIVE: GENERAL: Not in apparent distress, has mild short of breath. VITAL SIGNS: Temperature afebrile, heart rate is 60, blood pressure 104/56. HEENT: PERRLA. Extraocular muscles intact. NECK: Supple. No carotid bruits. No thyromegaly. CHEST: Clear to auscultation. HEART: S1, S2, regular. ABDOMEN: Soft. EXTREMITIES: Clubbing and cyanosis negative. LABORATORY DATA: WBC 24.6, hemoglobin 9.3, hematocrit 30.1, and platelet count 266. Chemistry shows sodium 134, potassium 4.4, chloride 94, carbon dioxide 30, anion gap of 6, BUN 20, and creatinine 0.5. Total protein 5.5, albumin of 2.7 and albumin/globulin ratio of 0.9. IMPRESSION: Atypical chest pain, no evidence of acute myocardial infarction, negative. Esophageal cancer probably coming from the chest wall. Protein-calorie malnutrition moderate, which was not present on admission. Anemia, leukocytosis. Bone scan done yesterday does show no evidence of bony metastases. The patient had echocardiography 04/12/2017 that showed ejection fraction of 55%, trace aortic regurgitation, moderate mitral regurgitation, [id number] tricuspid regurgitation. Shortness of breath and the chest pain most likely secondary to musculoskeletal from the wall and the esophageal. RECOMMENDATIONS: Continue aggressive treatment and no evidence of acute NC. Continue treatment for COPD. Continue treatment for esophageal cancer. Increase nutritional support as tolerated. We will follow with you. Thank you Dr. Ferreira for providing us the opportunity in taking care of Anurag Simms. Jesika Moran MD
[2017-04-16] MEDS: QUININE SULFATE 324 MG PO SCH (10:47)
[2017-04-16] MEDS: Tiotropium 18 mcg Cap For Inhalation IH SCH (10:54)
[2017-04-16] MEDS: Nystatin 100,000 Units/ml Oral Susp 5 ml UD PO SCH ×2 (10:54→17:19)
[2017-04-16] MEDS: Megestrol Acetate 40 mg/ml Cup PO SCH (10:54)
[2017-04-16] MEDS: TraMADol/Apap 37.5/325 mg Tab PO SCH ×2 (10:54→22:18)
[2017-04-16] MEDS: MethylPREDNISolone 40 mg Vial IVP SCH ×2 (10:56→22:18)
[2017-04-16] MEDS: Lidocaine 5% Patch TD SCH (11:14)
[2017-04-16] MEDS: Morphine 5 MG/ML SYRINGE IVP PRN ×2 (11:34→19:03)
[2017-04-16] MEDS: Multivitamin With Minerals Tab PO SCH (12:36)
--- NOTE | 2017-04-16 12:58 | CP.PCM.CON ---
History of Present Illness - History of Present Illness History of Present Illness: Palliative consult requested by Dr Osmani Ferreira Reason: Goals of care/advance care planning 71 year old male with history of COPD, SIADH, GERD and stage metastatic esophageal carcinoma who presented with left sided chest pain and shortness of breath. Toponins negative. Bones scan negative for osseous metastatic disease.Leukocytosis,anemia. PMHx: Emphysema,HCAP, COPD, s/p pyogenic left lung abscess, SIADH,GERD, metastatic esophageal carcinoma, basal cell ca, melanoma, shingles buttock & groin. Social History: Former smoker 2 pk X 40 yr, denies alcohol or drug use. ,lives with spouse. Family History: Non contributory Advance Care Planning: The patient has 5 wishes living will. Review of Systems: As per HPI, otherwise negative review of systems Past Patient History - Infectious Disease Hx of Infectious Diseases: None - Tetanus Immunizations Tetanus Immunization: Unknown - Past Social History Smoking Status: Former Smoker - CARDIAC Hx Cardiac Disorders: Yes - PULMONARY Hx Chronic Obstructive Pulmonary Disease (COPD): Yes (home o2 at 2LPM) - NEUROLOGICAL Hx Neurological Disorder: Yes (RESTLESS LEG SYNDROME) - HEENT Hx HEENT Problems: Yes (reading glasses) Hx Cataracts: Yes (b/l cat sx) Other/Comment: voice hoarse - RENAL Hx Chronic Kidney Disease: No - ENDOCRINE/METABOLIC Hx Endocrine Disorders: No - HEMATOLOGICAL/ONCOLOGICAL Hx Blood Disorders: Yes Hx Anemia: Yes Hx Cancer: Yes (esophogeal CA COMPLETED RADIATION) Hx Shingles: Yes (10/2016 right buttock to right groin) - INTEGUMENTARY Hx Dermatological Problems: Yes 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) Hx Melanoma: Yes (removed from back) Other/Comment: pt had shingles in 10/2015 r buttock around to r groin rash faded , "some" residual pain on lyrica (previous triage) - MUSCULOSKELETAL/RHEUMATOLOGICAL Hx Arthritis: Yes ("all over") - GASTROINTESTINAL Hx Gastrointestinal Disorders: Yes Hx Gastroesophageal Reflux: Yes HX Swallowing Problems: Yes - GENITOURINARY/GYNECOLOGICAL Hx Genitourinary Disorders: Yes Hx Prostate Problems: Yes (ENLARGED,BPH) - PSYCHIATRIC Hx Psychophysiologic Disorder: Yes (INSOMNIA) Hx Anxiety: Yes Hx Depression: Yes Hx Substance Use: No - SURGICAL HISTORY Hx Appendectomy: Yes Hx Mastectomy: No - ANESTHESIA Hx Anesthesia: Yes Hx Anesthesia Reactions: No Hx Malignant Hyperthermia: No Meds Allergies/Adverse Reactions: Allergies Allergy/AdvReac Type Severity Reaction Status Date / Time No Known Allergies Allergy Verified 04/09/17 17:17 - Medications Medications: Current Medications Acetylcysteine (Acetylcysteine 20%) 4 ml IH [id number] [facility] Last Admin: 04/16/17 08:15 Dose: 4 ml Albuterol Sulfate (Albuterol 0.083% Inhal Rylee (2.5 Mg/3 Ml) Ud) 2.5 mg INH [id number] PRN PRN Reason: Shortness of Breath Last Admin: 04/16/17 08:15 Dose: 2.5 mg Alprazolam (Xanax) 0.25 mg PO QID PRN; Protocol PRN Reason: Anxiety Stop: 04/21/17 14:01 Last Admin: 04/16/17 06:22 Dose: 0.25 mg Arformoterol Tartrate (Brovana) 15 mcg IH [id number] [facility] Last Admin: 04/16/17 08:14 Dose: 15 mcg Aspirin (Ecotrin) 81 mg PO DAILY [facility] Last Admin: 04/16/17 10:56 Dose: 81 mg Benzocaine/Menthol (Cepacol Sore Throat) 1 carlos MT Q3H PRN PRN Reason: Sore Throat Last Admin: 04/13/17 20:57 Dose: 1 carlos Benzonatate (Tessalon Perles) 100 mg PO TID [facility] Last Admin: 04/16/17 10:56 Dose: 100 mg Budesonide (Pulmicort Respules) 1 mg IH [id number] [facility] Last Admin: 04/15/17 19:50 Dose: 1 mg Doxycycline Hyclate (Doryx) 100 mg PO Q12 [facility] PRN Reason: Protocol Stop: 04/23/17 22:01 Last Admin: 04/16/17 10:56 Dose: 100 mg Escitalopram Oxalate (Lexapro) 5 mg PO DAILY [facility] Last Admin: 04/16/17 10:56 Dose: 5 mg Guaifenesin (Mucinex La) 600 mg PO Q6H [facility] Last Admin: 04/16/17 12:36 Dose: 600 mg Meropenem (Merrem Iv 1 Gm Premix) 50 mls @ 100 mls/hr IVPB Q8 [facility] PRN Reason: Protocol Stop: 04/23/17 18:14 Last Admin: 04/16/17 05:58 Dose: 100 mls/hr Levalbuterol HCl (Xopenex) 0.63 mg IH [id number] PRN PRN Reason: Shortness of Breath Last Admin: 04/16/17 08:14 Dose: 0.63 mg Lidocaine (Lidoderm) 1 ea TD DAILY [facility] Last Admin: 04/16/17 11:14 Dose: 1 ea Loratadine (Claritin) 10 mg PO DAILY [facility] Last Admin: 04/16/17 10:56 Dose: 10 mg Megestrol Acetate (Megace) 400 mg PO DAILY [facility] Last Admin: 04/16/17 10:54 Dose: 400 mg Methylprednisolone (Solu-Medrol) 40 mg IVP Q12 [facility] Last Admin: 04/16/17 10:56 Dose: 40 mg Montelukast Sodium (Singulair) 10 mg PO HS [facility] Last Admin: 04/15/17 21:42 Dose: 10 mg Morphine Sulfate (Morphine) 1.5 mg IVP Q3H PRN PRN Reason: Pain, moderate (4-7) Last Admin: 04/16/17 11:34 Dose: 1.5 mg Multivitamins/Minerals (Therapeutic-M Tab) 1 tab PO DAILY [facility] Last Admin: 04/16/17 12:36 Dose: 1 tab Non-Formulary Medication (Quinine Sulfate [Qualaquin]) 324 mg PO DAILY [facility] Last Admin: 04/16/17 10:47 Dose: Not Given Amitiza 24 Mcg 0 mg PO DAILY [facility] Last Admin: 04/16/17 10:57 Dose: 0.024 mg Nystatin (Nystatin Oral Susp) 5 ml PO BID [facility] Last Admin: 04/16/17 10:54 Dose: 5 ml Pantoprazole Sodium (Protonix Ec Tab) 40 mg PO 0600 [facility] Last Admin: 04/16/17 05:57 Dose: 40 mg Sucralfate (Carafate Oral Susp) 1 gm PO 0600,1600 [facility] Last Admin: 04/16/17 05:57 Dose: 1 gm Tamsulosin HCl (Flomax) 0.4 mg PO DAILY [facility] Last Admin: 04/16/17 10:56 Dose: 0.4 mg Tiotropium [place] (Spiriva) 18 mcg IH DAILY [facility] Last Admin: 04/16/17 10:54 Dose: 18 mcg Tramadol/Acetaminophen (Ultracet 37.5/325 Mg) 1 tab PO Q12H [facility] Last Admin: 04/16/17 10:54 Dose: 1 tab Physical Exam - Constitutional Appears: No Acute Distress, Chronically Ill - Head Exam Head Exam: NORMAL INSPECTION - Eye Exam Eye Exam: Normal appearance Pupil Exam: NORMAL ACCOMODATION - ENT Exam ENT Exam: Mucous Membranes Moist Additional comments: no lesions or sores - Neck Exam Neck exam: Positive for: Normal Inspection - Respiratory Exam Respiratory Exam: Rhonchi, NORMAL BREATHING PATTERN - Cardiovascular Exam Cardiovascular Exam: REGULAR RHYTHM, +S1, +S2 - GI/Abdominal Exam GI & Abdominal Exam: Normal Bowel Sounds, Soft - Extremities Exam Extremities exam: Positive for: normal capillary refill, normal inspection - Neurological Exam Neurological exam: Alert, Oriented x3 - Skin Skin Exam: Dry, Pallor Additional comments: healed shingles rash ight back and groin - Additional Findings Additional findings: Palliative performance sale rating 60% Results - Vital Signs Recent Vital Signs: Last Vital Signs Temp 97.8 F 04/16/17 06:00 Pulse 79 04/16/17 06:00 Resp 18 04/16/17 06:00 BP 126/70 04/16/17 06:00 Pulse Ox 96 04/16/17 06:00 - Labs Result Diagrams: 04/16/17 08:10 04/16/17 08:10 Labs: Laboratory Results - last 24 hr 04/14/17 04/16/17 04/16/17 07:00 08:10 08:10 WBC 24.6 H RBC 3.35 L Hgb 9.3 L Hct 30.1 L MCV 89.9 MCH 27.8 MCHC 30.9 L RDW 15.8 H Plt Count 266 MPV 9.0 Sodium 137 Potassium 4.4 Chloride 100 Carbon Dioxide 30 Anion Gap 11 BUN 21 Creatinine 0.4 L Est GFR ( Amer) > 60 Est GFR (Non-Af Amer) > 60 Random Glucose 122 H Calcium 10.6 H Total Bilirubin 0.3 AST 15 L ALT 35 Alkaline Phosphatase 74 Total Protein 4.9 L Albumin 2.5 L Globulin 2.4 Albumin/Globulin Ratio 1.0 L Procalcitonin 0.30 Assessment & Plan - Assessment and Plan (Free Text) Assessment: 71 year old male with multiple comorbidities (see PMH) admitted with atypical chest pain, leukocytosis, anemia and shortness of breath. Patient is resting but rouses easily. He complains of shortness of breath on exertion. Patient's and I discussed goals of care and advance care planning. states that her has 5 wishes document at home. states that patient does not want CPR but would consider intubation under temporary measures. I explained that due to her 's COPD, emphysema and metastatic disease, intubation would likely result in permanent need for ventilator support. understands the extent of her husbands illness and guarded prognosis. She states that she intends to discuss goals and resuscitation with her . requesting that I visit with her and her tomorrow in order to revisit this conversation and advance care planning together. Psychosocial support given Time spent in goals of care and advance care planning discussion, 30 minutes Plan: Goals of care Advance care planning
[2017-04-16] MEDS ORDERED: Iohexol 350 MG/100 ML VIAL ONE (20:34)
--- NOTE | 2017-04-16 21:08 | PN ---
DATE: 04/16/2017 LOCATION: The patient is seen earlier this morning in 243, bed 1. SUBJECTIVE: The patient is less short of breath. He is complaining of left-sided pleuritic pain and chest pain. There is no fevers. He did have low grade fevers. PHYSICAL EXAMINATION: VITAL SIGNS: Temperature is 100, blood pressure is 113/70, respiratory rate of 20, heart rate of 79 up to 127. HEENT: Unremarkable. NECK: Supple. LUNGS: Decreased breath sounds. HEART: Normal S1, S2. ABDOMEN: Soft. LABORATORY DATA: Laboratory examination reveals white count is 24,000, hemoglobin of 9, platelets of 266. BUN of 21, creatinine of 0.4. The patient had a procalcitonin of 0.3. Urinalysis is noted. Influenza is negative. Microbiology reveals blood cultures are negative. Urine cultures are negative. Review of orders reveals the patient to be on p.o. doxycycline and IV meropenem. The patient is on prednisone. Anne Palencia 's consultation is reviewed and appreciated. Bone scan, no areas of bony metastases is noted. The patient had a CAT scan of the chest on 03/05/2017, note is reviewed. ASSESSMENT AND PLAN: A 71-year-old male who was seen earlier this morning in 243 with his present with severe sepsis due to healthcare-associated pneumonia, history of severe sepsis, respiratory failure, lung cavitary lesion with pseudomonas abscess. No evidence of tuberculosis. The patient was treated 6 weeks of antibiotics. He has end-stage chronic obstructive lung disease with his history of heavy smoking. He has esophageal cancer with metastatic disease. On day #3 of meropenem and doxycycline with normal procalcitonin. I am concerned about that left-sided chest pain. We will order a D-dimer, Dopplers of the lower extremities, rule out deep venous thrombosis with pulmonary emboli should be considered. I discussed having a CAT scan of the chest with his , she is hesitant. Had metastatic esophageal cancer with liver metastases. Reconsider a CAT scan of the chest and angio to rule out pulmonary embolism. We will discuss with Dr. Ferreira. Kwame Horta MD
[2017-04-16] MEDS: Benzocaine/Menthol (Cepacol) Lozenge MT PRN (22:17)
--- NOTE | 2017-04-16 23:02 | CT ---
EXAM: CT Angiography Chest With Intravenous Contrast EXAM DATE/TIME: 04/16/2017 8:20 PM CLINICAL HISTORY: 71 years old, male; Abnormal findings; Abnormal diagnostic tests; Elevated d-dimer; Additional info: Cta, pe TECHNIQUE: Axial computed tomographic angiography images of the chest with intravenous contrast using pulmonary embolism protocol. All CT scans at this facility use one or more dose reduction techniques, viz.: automated exposure control; ma/kV adjustment per patient size (including targeted exams where dose is matched to indication; i.e. head); or iterative reconstruction technique. MIP reconstructed images were created and reviewed. Coronal and sagittal reformatted images were created and reviewed. CONTRAST: 100 mL of omni 350 administered intravenously. COMPARISON: CT - ANGIO CHEST PE PROTOCOL 2017-01-02 16:24 FINDINGS: No pulmonary embolism. No aortic dissection or aneurysm. No pleural or pericardial effussions. There is a large area of consolidation in the left upper lung abutting the pulmonary fissure and lateral pleura. The consolidation is new since prior most likely of infectious and/or atelectatic etiology. A few air bronchograms traverse the consolidation. There is a large thin-walled bullae in the right upper lung. The air cavity was present on prior study however there was a thickened wall inferiorly with a small amount of soft tissue that is no longer present. Small platelike area of atelectasis in the right midlung and lingula. Nodular infiltrate right lower lung new since prior study presumably of infectious etiology. Mediastinal lymph nodes are present. There are degenerative changes in the osseous structures. Thickening of the distal esophagus similar to prior. There is bilateral perinephric stranding. The liver appears prominent although it is incompletely imaged. IMPRESSION: Thin walled residual bullae right upper lung. New large area of consolidation in left upper lung presumably of infectious etiology. Small micronodular infiltrate right lower lung presumably infectious. Continued thickened distal esophageal wall.
--- NOTE | 2017-04-16 23:48 | PN ---
DATE: 04/16/2017 PULMONARY PROGRESS NOTE REFERRING PHYSICIAN: Dr. Abhijeet Vigil. SUBJECTIVE: The patient is sitting up in a chair. Night was unremarkable, feels little better today. Has cough and sputum production. No nausea. No vomiting. No diarrhea. No leg pain or leg swelling. PHYSICAL EXAMINATION: GENERAL: In no acute distress. VITAL SIGNS: Temperature is 98, heart rate 102, respiratory rate is 20, blood pressure 113/72, pulse ox 92% on nasal cannula. HEENT: Moist mucous membranes. No ulcer or thrush. NECK: Supple. No JVD. LUNGS: Has poor airflow with scattered rhonchi and wheezing. HEART: S1 and S2. ABDOMEN: Soft, nontender, no organomegaly. EXTREMITIES: There is no edema. NEUROLOGICAL: Awake and alert. Follows simple commands.. MEDICATIONS: He is on Mucomyst 20% inhaled q. 6 hours, Albuterol nebulizer q. 6 hours p.r.n., Amitiza 24 mcg daily, Brovana inhaled twice a day, Carafate 1 gm twice a day, Cepacol lozenges q.3 hours p.r.n., Claritin 10 mg daily, doxycycline 100 mg twice a day, Ecotrin 81 mg daily, Flomax 0.4 mg daily, Lexapro 5 mg daily, Lidoderm patch to the affected area, Megace 400 mg daily, meropenem 1 gm q.8 hours, morphine 1.5 mg IV q.3 hours p.r.n., Mucinex [place] 600 mg q.6 hours, nystatin oral suspension 5 mL twice a day, Protonix 40 mg daily, Pulmicort inhaled twice a day, quinine 324 mg daily, Singulair 10 mg daily, Solu-Medrol 40 mg q.12 hours, Spiriva one capsule inhaled daily, Tessalon Perles 100 mg 3 times a day, multivitamins daily, Ultracet 37.5/325 one tab q.12 hours p.r.n., Xanax 0.25 mg q.i.d., Xopenex inhaled q.6 hours. LABORATORY DATA: Shows hemoglobin 9.3, hematocrit 30.1, WBC 24.6, and platelets is 266. D-dimers are 1,886. Sodium 137, potassium 4.4, chloride 100, bicarbonate 30, BUN 21, and creatinine 0.4. Glucose 122, calcium 10.6. AST 15, ALT 35, alkaline phosphatase is 74. Albumin is 2.5. Microbiology, blood culture and urine culture, there is no growth. IMPRESSION AND PLAN: Chronic obstructive lung disease, metastatic esophageal cancer, right upper lobe metastatic disease with cavity, history of gastroesophageal reflux disease, anxiety disorder, depression. D-dimer quantitative was done which was 8,886. Clinically has low suspicion for pulmonary embolism, but we will do venous Doppler and CT angiogram which showed there is no pulmonary embolism. Continue BiPAP while sleeping. Gastric prophylaxis. Deep venous thrombosis prophylaxis. Thanks and we will follow with you. Jesika Srivastava MD
[2017-04-17] MEDS: Acetylcysteine 20% Inhal Soln (4ml) IH SCH ×4 (03:00→22:38)
[2017-04-17] MEDS: Pantoprazole 40 mg EC Tab PO SCH (05:14)
[2017-04-17] MEDS: guaiFENesin 600 mg ER Tab PO SCH ×4 (05:14→22:29)
[2017-04-17] MEDS: Meropenem IV 1 gm in NS 50 ML IVPB SCH ×3 (05:15→22:29)
[2017-04-17] MEDS: Sucralfate 1 gm/10 ml Oral Susp UD PO SCH ×2 (05:15→16:26)
[2017-04-17 06:48] LABS: HEMOGLOBIN 8.8 g/dL (14.0-18.0); MEAN CELL VOLUME 90.9 fl (80.0-105.0); MEAN CORPUSCULAR HEMOGLOBIN 27.6 pg (25.0-35.0); MEAN CORPUSCULAR HGB CONC 30.3 g/dl (31.0-37.0); MEAN PLATELET VOLUME 9.4 fl (7.0-11.0); RBC 3.19 10^6/uL (3.5-6.1); RED CELL DISTRIBUTION WIDTH 15.8 % (11.5-14.5); WHITE BLOOD COUNT 18.4 10^3/ul (4.5-11.0)
[2017-04-17 07:37] LABS: ALB/GLOB RATIO 0.9 (1.1-1.8); ALBUMIN 2.6 g/dL (3.0-4.8); ALT/SGPT 37 U/L (7-56); AST/SGOT 25 U/L (17-59); BLOOD UREA NITROGEN 22 mg/dL (7-21); CALCIUM 11.1 mg/dL (8.4-10.5); GFR AFRICAN-AMERICAN > 60; GFR NON-AFRICAN AMERICAN > 60
[2017-04-17] MEDS: Arformoterol 15 mcg/2 ml Inh Sol IH SCH ×2 (08:23→22:30)
[2017-04-17] MEDS: Budesonide 0.5 mg/2 ml Inhal Susp UD IH SCH ×2 (08:24→22:31)
[2017-04-17] MEDS: Levalbuterol 0.63 MG/3 ML Inhal Soln UD IH PRN ×2 (08:24→13:50)
[2017-04-17] MEDS: Megestrol Acetate 40 mg/ml Cup PO SCH (09:47)
[2017-04-17] MEDS: Tiotropium 18 mcg Cap For Inhalation IH SCH (09:47)
[2017-04-17] MEDS: Multivitamin With Minerals Tab PO SCH (09:47)
[2017-04-17] MEDS: MethylPREDNISolone 40 mg Vial IVP SCH ×2 (09:48→21:02)
[2017-04-17] MEDS: Lidocaine 5% Patch TD SCH (09:49)
[2017-04-17] MEDS: TraMADol/Apap 37.5/325 mg Tab PO SCH ×2 (10:05→21:02)
--- NOTE | 2017-04-17 10:22 | CP.PCM.PN ---
Subjective - Date & Time of Evaluation Date of Evaluation: 04/17/17 Time of Evaluation: 10:16 - Subjective Subjective: Patient seen and examined at bedside with . Patient resting comfortably on BIPAP. Patient with no acute events overnight. He admits to intermittent left sided chest pain, which has improved in severity. Cough remains constant and with no improvement. Denies shortness of breath, nausea, vomiting, diarrhea, fever, chills. Objective - Vital Signs/Intake and Output Vital Signs (last 24 hours): Temp Pulse Resp BP Pulse Ox 97.6 F 75 18 138/78 97 04/17/17 06:00 04/17/17 08:31 04/17/17 06:00 04/17/17 06:00 04/17/17 06:00 Intake and Output: 04/17/17 04/17/17 06:59 18:59 Intake Total 340 Output Total 0 Balance 340 - Medications Medications: Current Medications Acetylcysteine (Acetylcysteine 20%) 4 ml IH [id number] [facility] Last Admin: 04/17/17 08:23 Dose: 4 ml Albuterol Sulfate (Albuterol 0.083% Inhal Rylee (2.5 Mg/3 Ml) Ud) 2.5 mg INH [id number] PRN PRN Reason: Shortness of Breath Last Admin: 04/16/17 08:15 Dose: 2.5 mg Alprazolam (Xanax) 0.25 mg PO QID PRN; Protocol PRN Reason: Anxiety Stop: 04/21/17 14:01 Last Admin: 04/16/17 22:17 Dose: 0.25 mg Arformoterol Tartrate (Brovana) 15 mcg IH [id number] [facility] Last Admin: 04/17/17 08:23 Dose: 15 mcg Aspirin (Ecotrin) 81 mg PO DAILY [facility] Last Admin: 04/17/17 09:48 Dose: 81 mg Benzocaine/Menthol (Cepacol Sore Throat) 1 carlos MT Q3H PRN PRN Reason: Sore Throat Last Admin: 04/16/17 22:17 Dose: 1 carlos Benzonatate (Tessalon Perles) 100 mg PO TID [facility] Last Admin: 04/17/17 09:49 Dose: 100 mg Budesonide (Pulmicort Respules) 1 mg IH [id number] [facility] Last Admin: 04/17/17 08:24 Dose: 1 mg Doxycycline Hyclate (Doryx) 100 mg PO Q12 [facility] PRN Reason: Protocol Stop: 04/23/17 22:01 Last Admin: 04/17/17 09:47 Dose: 100 mg Escitalopram Oxalate (Lexapro) 5 mg PO DAILY [facility] Last Admin: 04/17/17 09:47 Dose: 5 mg Guaifenesin (Mucinex La) 600 mg PO Q6H [facility] Last Admin: 04/17/17 05:14 Dose: 600 mg Meropenem (Merrem Iv 1 Gm Premix) 50 mls @ 100 mls/hr IVPB Q8 [facility] PRN Reason: Protocol Stop: 04/23/17 18:14 Last Admin: 04/17/17 05:15 Dose: 100 mls/hr Levalbuterol HCl (Xopenex) 0.63 mg IH [id number] PRN PRN Reason: Shortness of Breath Last Admin: 04/17/17 08:24 Dose: 0.63 mg Lidocaine (Lidoderm) 1 ea TD DAILY [facility] Last Admin: 04/17/17 09:49 Dose: 1 ea Loratadine (Claritin) 10 mg PO DAILY [facility] Last Admin: 04/17/17 09:47 Dose: 10 mg Megestrol Acetate (Megace) 400 mg PO DAILY [facility] Last Admin: 04/17/17 09:47 Dose: 400 mg Methylprednisolone (Solu-Medrol) 40 mg IVP Q12 [facility] Last Admin: 04/17/17 09:48 Dose: 40 mg Montelukast Sodium (Singulair) 10 mg PO HS [facility] Last Admin: 04/16/17 22:17 Dose: 10 mg Morphine Sulfate (Morphine) 1.5 mg IVP Q3H PRN PRN Reason: Pain, moderate (4-7) Last Admin: 04/16/17 19:03 Dose: 1.5 mg Multivitamins/Minerals (Therapeutic-M Tab) 1 tab PO DAILY [facility] Last Admin: 04/17/17 09:47 Dose: 1 tab Non-Formulary Medication (Quinine Sulfate [Qualaquin]) 324 mg PO DAILY [facility] Last Admin: 04/16/17 10:47 Dose: Not Given Amitiza 24 Mcg 0 mg PO DAILY [facility] Last Admin: 04/17/17 09:48 Dose: 0.024 mg Nystatin (Nystatin Oral Susp) 5 ml PO BID [facility] Last Admin: 04/16/17 17:19 Dose: 5 ml Pantoprazole Sodium (Protonix Ec Tab) 40 mg PO 0600 [facility] Last Admin: 04/17/17 05:14 Dose: 40 mg Sucralfate (Carafate Oral Susp) 1 gm PO 0600,1600 [facility] Last Admin: 04/17/17 05:15 Dose: 1 gm Tamsulosin HCl (Flomax) 0.4 mg PO DAILY [facility] Last Admin: 04/17/17 09:47 Dose: 0.4 mg Tiotropium [place] (Spiriva) 18 mcg IH DAILY [facility] Last Admin: 04/17/17 09:47 Dose: 18 mcg Tramadol/Acetaminophen (Ultracet 37.5/325 Mg) 1 tab PO Q12H [facility] Last Admin: 04/16/17 22:18 Dose: 1 tab - Labs Labs: 04/17/17 06:00 04/17/17 06:00 PT 10.3 SECONDS (9.4-12.5) 04/09/17 17:15 INR 0.91 (0.93-1.08) L 04/09/17 17:15 APTT 28.2 Seconds (25.1-36.5) 04/09/17 17:15 - Constitutional Appears: Non-toxic, No Acute Distress, Cachectic - Head Exam Head Exam: ATRAUMATIC, NORMAL INSPECTION, NORMOCEPHALIC - ENT Exam ENT Exam: Mucous Membranes Dry - Respiratory Exam Respiratory Exam: Decreased Breath Sounds, Wheezes, NORMAL BREATHING PATTERN. absent: Rales, Rhonchi - Cardiovascular Exam Cardiovascular Exam: RRR, +S1, +S2 - GI/Abdominal Exam GI & Abdominal Exam: Soft, Normal Bowel Sounds. absent: Tenderness - Extremities Exam Extremities Exam: Normal Inspection. 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 Patient with elevated D-dimer yesterday and had CTA of chest ordered. CT scan did not show any signs of pulmonary embolism, but did show left upper lobe with consolidation. Patient remains on Merrem and Doxycycline for treatment, also showing improvement in white blood cell count. Patient to get lower extremity US to rule out DVT. Patient instructed to use BIPAP at night for severe COPD. We will follow closely and determine next course of treatment, including possibility of chemotherapy in addition to a taxane. Palliative care has spoken to patient's , will likely make him DNR/DNI today. Will continue current medications. Continue to monitor closely. Plan discussed with Dr. Ferreira. Gianna, PGY-2
[2017-04-17] MEDS: Morphine 5 MG/ML SYRINGE IVP PRN ×3 (11:05→20:18)
[2017-04-17] MEDS: Nystatin 100,000 Units/ml Oral Susp 5 ml UD PO SCH ×2 (11:13→17:35)
[2017-04-17] MEDS: QUININE SULFATE 324 MG PO SCH (13:04)
--- NOTE | 2017-04-17 13:28 | PN ---
DATE: 04/17/2017 REASON FOR CONSULTATION: Chest pain left-sided, atypical, cardiac evaluation, COPD, history of esophageal cancer. SUBJECTIVE: The patient complained of chest pain, on a heating pad, complains of chest pain when taking a deep breath. OBJECTIVE: GENERAL: Mild distress, on oxygen. VITAL SIGNS: Temperature afebrile, heart rate 75, blood pressure 138/78. HEENT: PERRLA. Extraocular muscles intact. NECK: Supple. No carotid bruits. No thyromegaly. CHEST: Clear to auscultation. HEART: S1, S2, regular. ABDOMEN: Soft. EXTREMITIES: Clubbing and cyanosis negative. LABORATORY DATA: Blood workup as follows; WBC 18.4, hemoglobin 8.8, hematocrit 29.0 and platelet count 280. Chemistry shows sodium 140, potassium 4.4, chloride 98, carbon dioxide 37, anion gap of 9, BUN 30 and creatinine 0.5. Total protein 4.2, albumin of 2.6 and albumin/globulin ratio of 0.9. IMPRESSION: Protein-calorie malnutrition was not present on admission, anemia, leukocytosis, chronic obstructive pulmonary disease, esophageal cancer, difficulty in swallowing secondary to esophageal cancer, malnutrition secondary to esophageal cancer. The patient's echo on 04/12/2017, ejection fraction 55%. Bone scan shows no bony metastasis. Trace aortic regurgitation, moderate mitral regurgitation, [id number] tricuspid regurgitation. Shortness of breath is most likely secondary to underlying chronic obstructive pulmonary disease as well as musculoskeletal pain and cancer. RECOMMENDATIONS: Continue aggressive treatment, adequate analgesia. Continue treatment for COPD. Increase nutritional support as tolerated. CA status is stable. No further cardiac workup is planned. Thank you Dr. Ferreira for providing us the opportunity in taking care of patient, Anurag Simms. Jesika Moran MD cc: María Ferreira MD
--- NOTE | 2017-04-17 17:28 | US ---
HISTORY: Leg pain and swelling. Evaluate for DVT PHYSICIAN(S): Duran Miller MD. TECHNIQUE: Duplex sonography and color-flow Doppler with graded compression were used to evaluate the deep venous systems of both lower extremities. FINDINGS: The visualized deep venous systems of both lower extremities are sonographically normal and compressible. Normal wave forms and augmentation are seen. There is no sonographic evidence for deep venous thrombosis in the visualized segments of both lower extremities. IMPRESSION: No sonographic evidence for deep venous thrombosis in the visualized segments of both lower extremities.
--- NOTE | 2017-04-17 20:13 | PN ---
DATE: 04/17/2017 PULMONARY PROGRESS NOTE REFERRING PHYSICIAN: Abhijeet Vigil MD SUBJECTIVE: The patient is sitting up in the chair. Night was unremarkable. Because of D-dimer positive, CT angiogram was done, which was negative for PE, but has left upper and lower lobe pneumonia, cough with sputum production. No nausea. No vomiting. No diarrhea. No leg pain or leg swelling. OBJECTIVE: GENERAL: Mild distress secondary to cough and shortness of breath. VITAL SIGNS: Temperature is 98, heart rate 75, respiratory rate is 18, blood pressure 138/78, pulse ox 97% on BiPAP. HEENT: Moist mucous membrane. No ulcer or thrush. NECK: Supple. No JVD. LUNGS: Has a poor airflow with scattered rhonchi and wheezing. Prolonged expiratory phase. HEART: S1 and S2. ABDOMEN: Soft and nontender. No organomegaly. EXTREMITIES: No edema. NEUROLOGIC: Awake, alert, and follow simple commands. MEDICATIONS: He is on Mucomyst 20% inhaled q. 6 hours, Albuterol nebulizer q. 6 hours p.r.n., Amitiza 24 mcg p.o. daily, Brovana 50 mcg inhaled twice a day, Carafate 1 g twice a day, Cepacol lozenges q. 3 hours p.r.n., Claritin 10 mg daily, doxycycline 100 mg twice a day, Ecotrin 81 mg daily, Flomax 0.4 mg daily, Lexapro 5 mg daily, Lidoderm patch daily, Megace 400 mg daily, meropenem 1 g IV q. 8 hours, morphine 1.5 mg IV q. 3 hours p.r.n., Mucinex LA 600 mg q. 6 hours, nystatin oral suspension 5 mL twice a day, Protonix 40 mg daily, Pulmicort inhaled twice a day, quinine 324 mg daily, Singulair 10 mg daily, Solu-Medrol 40 mg q. 12 hours, Spiriva 18 mcg inhaled daily, Tessalon Perles 100 mg 3 times daily, multivitamins daily, Ultracet 37.5/325 one tab q. 12 hours, Xanax 0.25 mg four times daily p.r.n., Xopenex inhaled q. 6 hours p.r.n. LABORATORY DATA: Shows hemoglobin 8.8, hematocrit 29.0, WBC 18.4, platelet is 280. Sodium 140, potassium 4.4, chloride 98, bicarbonate 37, BUN 22, creatinine 0.5, glucose is 119, calcium is 11.1, AST 25, ALT 37, alkaline phosphatase is 82, albumin is 2.6. Microbiology, blood culture and urine culture, there is no growth. CAT scan of the chest done yesterday shows new left upper lobe and right lower lobe infiltrate, but no PE. IMPRESSION AND PLAN: Chronic obstructive lung disease, metastatic esophageal cancer, history of gastroesophageal reflux disease, also right upper lobe metastatic disease which is a cavitary lesion, anxiety disorder, depression, D-dimer positive and having CT angio, diagnosed with a new left upper and lower lobe pneumonia. Pulmonary point of view, continue inhaled bronchodilator, cough suppressant, continue antibiotics as per Infections Disease. I spoke to the patient's at bedside. All the questions answered. We will continue gastroesophageal reflux disease precaution, incentive spirometer. Out of bed to [facility], physical therapy. Gastric prophylaxis and deep venous thrombosis prophylaxis. Thank you and we will follow with you. Jesika Srivastava MD
--- NOTE | 2017-04-17 21:21 | PN ---
DATE: 04/17/2017 SUBJECTIVE: The patient is in bed, in no acute distress, nontoxic. PHYSICAL EXAMINATION: VITAL SIGNS: Temperature is 97, blood pressure is 130/70, respiratory rate of 18, and heart rate of 98. HEENT: Unremarkable. NECK: Supple. LUNGS: Have decreased breath sounds. HEART: Normal S1, S2. ABDOMEN: Soft, nontender. LABORATORY EXAMINATION: Reveals a white count of 18,000, hemoglobin of 8, platelets 280. The chemistries reveal a BUN of 22, creatinine of 0.5. Procalcitonin is 0.3. Urinalysis is noted and serology, influenza was negative and. Blood cultures are negative. The patient had a CAT scan of the chest, angio, which was negative for pulmonary emboli, new nodular infiltrates seen in the right side. Dopplers of the lower extremity results are not available. ASSESSMENT AND PLAN: This is a 71-year-old male who was seen early this morning. The patient's sleeps in the next bed. The patient with severe sepsis due to healthcare-associated pneumonia and with a history of respiratory failure, history of lung cavity lesion with Pseudomonas abscess and end-stage chronic obstructive lung disease, history of heavy smoker, esophageal cancer, metastases, day #4 of meropenem and doxycycline. D-dimer is positive; however, the CT angio is negative for pulmonary emboli and would complete 4 to 7 days of antibiotics. Currently day #4 of doxycycline and meropenem. Kwame Horta MD
[2017-04-18] MEDS: Sucralfate 1 gm/10 ml Oral Susp UD PO SCH ×2 (05:15→17:36)
[2017-04-18] MEDS: guaiFENesin 600 mg ER Tab PO SCH ×4 (05:15→23:45)
[2017-04-18] MEDS: Meropenem IV 1 gm in NS 50 ML IVPB SCH (05:15)
[2017-04-18] MEDS: Pantoprazole 40 mg EC Tab PO SCH (05:15)
[2017-04-18] MEDS: Morphine 5 MG/ML SYRINGE IVP PRN ×4 (05:23→19:38)
[2017-04-18 06:44] LABS: MEAN CELL VOLUME 91.1 fl (80.0-105.0); MEAN CORPUSCULAR HEMOGLOBIN 27.7 pg (25.0-35.0); MEAN CORPUSCULAR HGB CONC 30.4 g/dl (31.0-37.0); MEAN PLATELET VOLUME 8.8 fl (7.0-11.0); RBC 3.25 10^6/uL (3.5-6.1); RED CELL DISTRIBUTION WIDTH 15.8 % (11.5-14.5); WHITE BLOOD COUNT 14.6 10^3/ul (4.5-11.0)
[2017-04-18] MEDS ORDERED: Meropenem 1 GM in Sodium Chloride 0.9% 100 ML IVPB SCH (07:35)
[2017-04-18] MEDS: Arformoterol 15 mcg/2 ml Inh Sol IH SCH ×2 (07:55→20:33)
[2017-04-18] MEDS: Budesonide 0.5 mg/2 ml Inhal Susp UD IH SCH ×2 (07:55→20:33)
[2017-04-18] MEDS: Acetylcysteine 20% Inhal Soln (4ml) IH SCH ×4 (08:03→20:33)
[2017-04-18 08:09] LABS: ALB/GLOB RATIO 0.8 (1.1-1.8); ALBUMIN 2.5 g/dL (3.0-4.8); ALT/SGPT 33 U/L (7-56); AST/SGOT 31 U/L (17-59); BLOOD UREA NITROGEN 25 mg/dL (7-21); CALCIUM 10.7 mg/dL (8.4-10.5); GFR AFRICAN-AMERICAN > 60; GFR NON-AFRICAN AMERICAN > 60
[2017-04-18] MEDS: Levalbuterol 0.63 MG/3 ML Inhal Soln UD IH PRN ×2 (08:19→13:15)
[2017-04-18] MEDS: Megestrol Acetate 40 mg/ml Cup PO SCH (09:59)
[2017-04-18] MEDS: Multivitamin With Minerals Tab PO SCH (10:02)
[2017-04-18] MEDS: Nystatin 100,000 Units/ml Oral Susp 5 ml UD PO SCH ×2 (10:02→17:36)
[2017-04-18] MEDS: Tiotropium 18 mcg Cap For Inhalation IH SCH (10:02)
[2017-04-18] MEDS: MethylPREDNISolone 40 mg Vial IVP SCH ×2 (10:03→22:20)
[2017-04-18] MEDS: Lidocaine 5% Patch TD SCH (10:03)
[2017-04-18] MEDS: QUININE SULFATE 324 MG PO SCH (10:06)
[2017-04-18] MEDS: TraMADol/Apap 37.5/325 mg Tab PO SCH ×2 (10:07→22:20)
[2017-04-18] MEDS: Vancomycin 1gm in NS 250ml 1 GM/250 ML BAG IVPB SCH ×2 (15:20→23:35)
--- NOTE | 2017-04-18 16:29 | CP.PCM.PN ---
Subjective - Date & Time of Evaluation Date of Evaluation: 04/18/17 Time of Evaluation: 11:00 - Subjective Subjective: Still having shortness of breath, no fevers overnight, still with cough. Objective - Vital Signs/Intake and Output Vital Signs (last 24 hours): Temp Pulse Resp BP Pulse Ox 98.2 F 83 20 139/79 96 04/18/17 06:00 04/18/17 06:00 04/18/17 06:00 04/18/17 06:00 04/18/17 06:00 Intake and Output: 04/18/17 04/18/17 06:59 18:59 Intake Total 220 Output Total 300 Balance -80 - Medications Medications: Current Medications Acetylcysteine (Acetylcysteine 20%) 4 ml IH [id number] [facility] Last Admin: 04/18/17 08:19 Dose: 4 ml Albuterol Sulfate (Albuterol 0.083% Inhal Rylee (2.5 Mg/3 Ml) Ud) 2.5 mg INH [id number] PRN PRN Reason: Shortness of Breath Last Admin: 04/16/17 08:15 Dose: 2.5 mg Alprazolam (Xanax) 0.25 mg PO QID PRN; Protocol PRN Reason: Anxiety Stop: 04/21/17 14:01 Last Admin: 04/18/17 06:26 Dose: 0.25 mg Arformoterol Tartrate (Brovana) 15 mcg IH [id number] [facility] Last Admin: 04/18/17 07:55 Dose: 15 mcg Aspirin (Ecotrin) 81 mg PO DAILY [facility] Last Admin: 04/17/17 09:48 Dose: 81 mg Benzocaine/Menthol (Cepacol Sore Throat) 1 carlos MT Q3H PRN PRN Reason: Sore Throat Last Admin: 04/16/17 22:17 Dose: 1 carlos Benzonatate (Tessalon Perles) 100 mg PO TID [facility] Last Admin: 04/17/17 17:34 Dose: 100 mg Budesonide (Pulmicort Respules) 1 mg IH [id number] [facility] Last Admin: 04/18/17 07:55 Dose: 1 mg Doxycycline Hyclate (Doryx) 100 mg PO Q12 [facility] PRN Reason: Protocol Stop: 04/23/17 22:01 Last Admin: 04/18/17 01:58 Dose: 100 mg Escitalopram Oxalate (Lexapro) 5 mg PO DAILY [facility] Last Admin: 04/17/17 09:47 Dose: 5 mg Guaifenesin (Mucinex La) 600 mg PO Q6H [facility] Last Admin: 04/18/17 05:15 Dose: 600 mg Meropenem 1 gm/ Sodium (Chloride) 100 mls @ 100 mls/hr IVPB Q8 [facility] PRN Reason: Protocol Stop: 04/23/17 18:14 Levalbuterol HCl (Xopenex) 0.63 mg IH [id number] PRN PRN Reason: Shortness of Breath Last Admin: 04/18/17 08:19 Dose: 0.63 mg Lidocaine (Lidoderm) 1 ea TD DAILY [facility] Last Admin: 04/17/17 09:49 Dose: 1 ea Loratadine (Claritin) 10 mg PO DAILY [facility] Last Admin: 04/17/17 09:47 Dose: 10 mg Megestrol Acetate (Megace) 400 mg PO DAILY [facility] Last Admin: 04/17/17 09:47 Dose: 400 mg Methylprednisolone (Solu-Medrol) 40 mg IVP Q12 [facility] Last Admin: 04/17/17 21:02 Dose: 40 mg Montelukast Sodium (Singulair) 10 mg PO HS [facility] Last Admin: 04/17/17 21:02 Dose: 10 mg Morphine Sulfate (Morphine) 1.5 mg IVP Q3H PRN PRN Reason: Pain, moderate (4-7) Last Admin: 04/18/17 05:23 Dose: 1.5 mg Multivitamins/Minerals (Therapeutic-M Tab) 1 tab PO DAILY [facility] Last Admin: 04/17/17 09:47 Dose: 1 tab Non-Formulary Medication (Quinine Sulfate [Qualaquin]) 324 mg PO DAILY [facility] Last Admin: 04/17/17 13:04 Dose: Not Given Amitiza 24 Mcg 0 mg PO DAILY [facility] Last Admin: 04/17/17 09:48 Dose: 0.024 mg Nystatin (Nystatin Oral Susp) 5 ml PO BID [facility] Last Admin: 04/17/17 17:35 Dose: 5 ml Pantoprazole Sodium (Protonix Ec Tab) 40 mg PO 0600 [facility] Last Admin: 04/18/17 05:15 Dose: 40 mg Sucralfate (Carafate Oral Susp) 1 gm PO 0600,1600 [facility] Last Admin: 04/18/17 05:15 Dose: 1 gm Tamsulosin HCl (Flomax) 0.4 mg PO DAILY [facility] Last Admin: 04/17/17 09:47 Dose: 0.4 mg Tiotropium [place] (Spiriva) 18 mcg IH DAILY [facility] Last Admin: 04/17/17 09:47 Dose: 18 mcg Tramadol/Acetaminophen (Ultracet 37.5/325 Mg) 1 tab PO Q12H [facility] Last Admin: 04/17/17 21:02 Dose: 1 tab - Labs Labs: 04/18/17 05:45 04/18/17 05:45 PT 10.3 SECONDS (9.4-12.5) 04/09/17 17:15 INR 0.91 (0.93-1.08) L 04/09/17 17:15 APTT 28.2 Seconds (25.1-36.5) 04/09/17 17:15 - Constitutional Appears: Cachectic, Chronically Ill - Head Exam Head Exam: NORMAL INSPECTION - ENT Exam ENT Exam: Mucous Membranes Moist - Neck Exam Neck Exam: absent: Meningismus - Respiratory Exam Respiratory Exam: Decreased Breath Sounds - Cardiovascular Exam Cardiovascular Exam: +S1, +S2 - GI/Abdominal Exam GI & Abdominal Exam: Soft. absent: Tenderness Assessment and Plan - Assessment and Plan (Free Text) Plan: Assessment severe sepsis due to HCAP history of severe sepsis with respiratory failure from lung cavitary lesion in the right upper lobe - lung pyogenic abscess with Pseudomonas - no evidence of TB; S/P treatment with 6 weeks of antibiotics in 2017 - most recent CT showing just residual bulla end-stage COPD with history of heavy smoking esophageal cancer CAD basal cell CA S/P appendectomy Plan continue Doxcycline and Merrem day 5, complete up to 7 days of therapy noted Dr. Srivastava's recommendations overall prognosis is poor
--- NOTE | 2017-04-18 20:48 | PN ---
DATE: 04/18/2017 CONSULTING PHYSICIAN: Jesika Moran MD. REASON FOR CONSULTATION AND FOLLOWUP: Chest pain, left-sided, atypical, cardiac evaluation, COPD, history of esophageal cancer. SUBJECTIVE: The patient is still complaining of chest pain on taking a deep breath, mild short of breath. OBJECTIVE: GENERAL: Mild short of breath. VITAL SIGNS: As follows: Temperature afebrile, heart rate 63, blood pressure 139/79. HEENT: PERRLA. Extraocular muscles intact. NECK: Supple. No carotid bruit, no thyromegaly. CHEST: Clear to auscultation. HEART: S1, S2, regular. ABDOMEN: Soft. EXTREMITIES: Clubbing and cyanosis negative. LABORATORY DATA: Blood workup as follows: WBC 14, hemoglobin 9, hematocrit 29.6, platelet count 280. Chemistry shows sodium 143, potassium 4.2, chloride 99, carbon dioxide , anion gap of 9, BUN 25, creatinine 0.5, total protein albumin-globulin ration 0.8. IMPRESSION: Protein-calorie malnutrition present on admission, anemia, leukocytosis, failure to thrive, atypical chest pain from lung cancer, , esophageal cancer, difficulty in swallowing solid foods with esophageal cancer, ex-smoker, bone scan negative for bony metastasis. Last echo, 04/12/2017, ejection fraction 55%, moderate mitral regurgitation, [id number] tricuspid regurgitation, shortness of breath, multifactorial secondary to underlying chronic obstructive pulmonary disease as well as pain from the cancer. RECOMMENDATIONS: Continue aggressive treatment, adequate analgesia, continue treatment of COPD, increase nutritional support, CV , status is stable. We will follow with you. Thank you, Dr. Ferreira for providing us the opportunity to taking care of Anurag Simms. Jesika Moran MD
[2017-04-18] MEDS: Meropenem 1g/NS 100mL IVPB 1 GM/100 ML PIGGYBACK IVPB SCH (22:21)
--- NOTE | 2017-04-18 23:21 | PN ---
DATE: 04/18/2017 This is [facility]'s [facility] visit on the medical floor. For Dr. Ferreira. SUBJECTIVE: The patient is a 71-year-old male seen sitting up in the chair with his at the bedside with supplemental oxygen on. Continuing his pureed diet with the patient's chest discomfort still reported, but the patient is otherwise in no acute distress. He is suffering from T3, N1, M0 adenocarcinoma of the esophagus. Also, severe end-stage COPD, on continuous oxygen. He is known to have a cavitary lesion with suspicious metastatic changes in his lung. He continues with respiratory treatments with BiPAP as per Dr. Srivastava and was evaluated by clerical proofreader, Dr. Moran. OBJECTIVE: PHYSICAL EXAMINATION: VITAL SIGNS: Temperature 98.2, pulse 83, respirations 20, blood pressure 139/79, pulse ox of 96% on FiO2 of 40%. HEENT: He has sunken temples, appears cachectic. Oxygen is on. HEENT is otherwise unremarkable. Tongue is moist and in midline. No candidal changes appreciated in this visit. NECK: Supple. LUNGS: Scattered rhonchi. Prolonged expiratory phase. HEART: Tachy rate, regular rhythm. ABDOMEN: Soft and nontender. EXTREMITIES: No edema. SKIN: Warm and dry. NEUROLOGIC: Awake, alert and oriented x3 with hoarseness of his voice. LABORATORY DATA: The patient's labs were done. White blood cell count of 14.6, hemoglobin of 9.0, up from 8.8 yesterday, hematocrit of 29.6, platelet count of 280,000 with a chem metabolic panel showing a carbon dioxide of 39, BUN of 25, creatinine of 0.5 with a total protein of 5.4, otherwise normal chem metabolic panel. The patient's stool for occult blood done yesterday was turned out positive. The patient also had a CT scan of his chest done 2 days prior. It was read as wall residual bullae, right upper lung, new large area of consolidation. Left upper lung presumably of infectious etiology, small micronodular infiltrate, right lower lung, presumably infectious. Continued thickened distal esophageal wall. He also had a Doppler ultrasound of his lower extremities done on 04/16/2017. It was read as no evidence of DVT in the visualized lower extremities. ASSESSMENT: The assessment for this patient is that of pseudosepsis with pneumonia, probably healthcare associated, history of respiratory failure, cavitary lung lesion, end-stage chronic obstructive pulmonary disease, history of smoking, esophageal cancer with metastases, depression, cachexia of malignancy, intractable pain of cancer, failure to thrive, diet restricted to puree, history of melanoma, and anemia of chronic disease. PLAN: The plan for this patient after consultation with Dr. Ferreira is to continue his present medical regimen with IV antibiotics. As per Dr. Horta, there is also consideration for DNR status after consultation with Dr. Ferreira and his with the patient otherwise to continue his present medical regimen as per Dr. Ferreira's recommendation. This is a complex patient. Comprehensive medically necessary and appropriate visit carried out at the bedside in excess of 25 minutes. Abhijeet Vigil MD
--- NOTE | 2017-04-19 00:54 | PN ---
DATE: 04/18/2017 PULMONARY PROGRESS NOTE REFERRING PHYSICIAN: Abhijeet Vigil MD SUBJECTIVE: Patient is lying in the bed, sleepy, arousable. Night was unremarkable other than could not use BiPAP. The temperature of humidification was too high. No nausea. No vomiting. No diarrhea, leg pain, or leg swelling. OBJECTIVE: GENERAL: In no acute distress. VITAL SIGNS: Temperature 98, heart rate is 83, respiratory rate is 20, blood pressure of 139/79, pulse ox 96% on 3 L nasal cannula. HEENT: Moist mucous membrane. No ulcer or thrush noted. NECK: Supple. No JVD. LUNGS: Had poor airflow with scattered rhonchi. HEART: S1 and S2. ABDOMEN: Soft and nontender. No organomegaly. EXTREMITIES: There is no edema. NEUROLOGIC: Sleepy, arousable. Follows simple commands. MEDICATIONS: He is on Mucomyst inhaled q. 6 hours, albuterol/Atrovent nebulizer q. 6 hours, Amitiza 25 mcg daily, Brovana inhaled twice a day, Carafate 1 g twice a day, Cepacol lozenges q. 3 hours p.r.n., Claritin 10 mg daily, doxycycline 100 mg twice a day, Ecotrin 81 mg daily, Flomax 0.4 mg daily, Lexapro 5 mg daily, lidocaine patch at affected area, Megace 400 mg daily, meropenem 1 g IV q. 8 hours, morphine 1.5 mg q. 3 hours p.r.n., Mucinex LA 600 mg q. 6 hours, nystatin oral 5 mL twice a day, Protonix 40 mg daily, Pulmicort inhaled twice a day, getting quinine 324 mg daily, Singulair 10 mg daily, Solu-Medrol 40 mg twice a day, Spiriva one capsule inhaled daily, Tessalon Perles 100 mg 3 times a day, multivitamins daily, Tylenol p.r.n., Ultracet 37.5/325 tab q. 12 hours p.r.n., vancomycin 1 g IV q. 12 hours, Xanax 0.25 mg q.i.d. p.r.n., and Xopenex inhaled q. 6 hours p.r.n. LABORATORY DATA: Showed hemoglobin 9.0, hematocrit 29.6, WBC 14.6, platelet is 280. Sodium 143, potassium 4.2, chloride 99, bicarbonate 39, BUN 25, creatinine 0.5, glucose 119, calcium is 10.7, AST 31, ALT 33, alkaline phosphatase is 69. Albumin is 2.5. Microbiology, blood culture and urine culture have been negative. IMPRESSION AND PLAN: Chronic obstructive lung disease, metastatic esophageal cancer, gastroesophageal reflux disease, right upper lobe metastatic cavitary lesion, left upper lobe and right lower lobe new infiltrate and pneumonia *------*. I spoke to patient's on the phone. Continue antibiotics as per Infectious Disease; IV, p.o. and inhaled bronchodilator. Temperature on BiPAP humidification is decreased. Gastric prophylaxis and deep venous thrombosis prophylaxis. Out of bed to chair, physical therapy. Aspiration precaution. Infectious Disease and Oncology followup. Thank you and we will follow with you. Jesika Srivastava MD
[2017-04-19] MEDS: Acetylcysteine 20% Inhal Soln (4ml) IH SCH ×3 (02:06→19:56)
[2017-04-19] MEDS: Sucralfate 1 gm/10 ml Oral Susp UD PO SCH ×2 (06:24→18:30)
[2017-04-19] MEDS: Meropenem 1g/NS 100mL IVPB 1 GM/100 ML PIGGYBACK IVPB SCH ×3 (06:24→22:34)
[2017-04-19] MEDS: Pantoprazole 40 mg EC Tab PO SCH (06:24)
[2017-04-19] MEDS: guaiFENesin 600 mg ER Tab PO SCH ×5 (06:46→22:41)
[2017-04-19] MEDS: Morphine 5 MG/ML SYRINGE IVP PRN ×3 (06:48→15:45)
[2017-04-19 07:54] LABS: BASO # 0.03 K/mm3 (0.0-2.0); BASO % 0.2 % (0.0-3.0); GRAN # 15.33 (1.4-6.5); GRAN % 93.3 % (50.0-68.0); HEMOGLOBIN 10.1 g/dL (14.0-18.0); LYMPH # 0.3 (1.2-3.4); LYMPH % 1.6 % (22.0-35.0); MEAN CELL VOLUME 91.2 fl (80.0-105.0); MEAN CORPUSCULAR HEMOGLOBIN 27.7 pg (25.0-35.0); MEAN CORPUSCULAR HGB CONC 30.3 g/dl (31.0-37.0); MONO # 0.8 (0.1-0.6); MONO % 4.9 % (1.0-6.0); PLATELET COUNT 370 10^3/uL (120.0-450.0); RBC 3.65 10^6/uL (3.5-6.1); RED CELL DISTRIBUTION WIDTH 15.8 % (11.5-14.5); WHITE BLOOD COUNT 16.4 10^3/ul (4.5-11.0)
[2017-04-19 08:22] LABS: ALB/GLOB RATIO 0.9 (1.1-1.8); ALT/SGPT 36 U/L (7-56); AST/SGOT 34 U/L (17-59); BLOOD UREA NITROGEN 22 mg/dL (7-21); CALCIUM 10.8 mg/dL (8.4-10.5); GFR AFRICAN-AMERICAN > 60; GFR NON-AFRICAN AMERICAN > 60
[2017-04-19] MEDS: Arformoterol 15 mcg/2 ml Inh Sol IH SCH ×2 (08:45→19:53)
[2017-04-19] MEDS: Budesonide 0.5 mg/2 ml Inhal Susp UD IH SCH ×2 (08:45→19:53)
[2017-04-19 09:02] LABS: BAND 2 % (0-2); LYMPHOCYTE 3 % (22.0-35.0); MONOCYTE 3 % (1.0-6.0); NEUTROPHIL 92 % (50.0-70.0); PLATELET ESTIMATE NORMAL (NORMAL)
[2017-04-19 09:03] LABS: ANISOCYTOSIS SLIGHT; HYPOCHROMIA SLIGHT; TOXIC GRANULATION 1+
[2017-04-19] MEDS: Tiotropium 18 mcg Cap For Inhalation IH SCH (11:15)
[2017-04-19] MEDS: TraMADol/Apap 37.5/325 mg Tab PO SCH ×2 (11:15→22:37)
[2017-04-19] MEDS: Lidocaine 5% Patch TD SCH (11:17)
[2017-04-19] MEDS: Multivitamin With Minerals Tab PO SCH (11:17)
[2017-04-19] MEDS: Megestrol Acetate 40 mg/ml Cup PO SCH (11:18)
[2017-04-19] MEDS: QUININE SULFATE 324 MG PO SCH (11:19)
[2017-04-19] MEDS: MethylPREDNISolone 40 mg Vial IVP SCH ×2 (11:19→22:32)
[2017-04-19] MEDS: Vancomycin 1gm in NS 250ml 1 GM/250 ML BAG IVPB SCH ×2 (11:20→22:38)
--- NOTE | 2017-04-19 13:28 | CP.PCM.PN ---
Subjective - Date & Time of Evaluation Date of Evaluation: 04/19/17 Time of Evaluation: 13:24 - Subjective Subjective: Patient seen and examined at bedside. Patient complaining of lethargy and fatigue. Patient also complaining of his constant, left-sided chest pain. Pain partially controlled with pain medications. Denies shortness of breath, nausea, vomiting, diarrhea, fever, chills. Objective - Vital Signs/Intake and Output Vital Signs (last 24 hours): Temp Pulse Resp BP Pulse Ox 97.6 F 109 H 22 137/84 94 L 04/19/17 08:35 04/19/17 08:35 04/19/17 08:35 04/19/17 08:35 04/19/17 08:35 Intake and Output: 04/19/17 04/19/17 06:59 18:59 Intake Total 420 Output Total 200 Balance 220 - Medications Medications: Current Medications Acetaminophen (Tylenol 325mg Tab) 650 mg PO Q4H PRN PRN Reason: Headache Last Admin: 04/18/17 15:21 Dose: 650 mg Acetylcysteine (Acetylcysteine 20%) 4 ml IH [id number] [facility] Last Admin: 04/19/17 09:05 Dose: Not Given Albuterol Sulfate (Albuterol 0.083% Inhal Rylee (2.5 Mg/3 Ml) Ud) 2.5 mg INH [id number] PRN PRN Reason: Shortness of Breath Last Admin: 04/16/17 08:15 Dose: 2.5 mg Alprazolam (Xanax) 0.25 mg PO QID PRN; Protocol PRN Reason: Anxiety Stop: 04/21/17 14:01 Last Admin: 04/19/17 11:54 Dose: 0.25 mg Arformoterol Tartrate (Brovana) 15 mcg IH [id number] [facility] Last Admin: 04/19/17 08:45 Dose: 15 mcg Aspirin (Ecotrin) 81 mg PO DAILY [facility] Last Admin: 04/19/17 11:17 Dose: 81 mg Benzocaine/Menthol (Cepacol Sore Throat) 1 carlos MT Q3H PRN PRN Reason: Sore Throat Last Admin: 04/16/17 22:17 Dose: 1 carlos Benzonatate (Tessalon Perles) 100 mg PO TID [facility] Last Admin: 04/19/17 11:17 Dose: 100 mg Budesonide (Pulmicort Respules) 1 mg IH [id number] [facility] Last Admin: 04/19/17 08:45 Dose: 0.5 mg Doxycycline Hyclate (Doryx) 100 mg PO Q12 [facility] PRN Reason: Protocol Stop: 04/23/17 22:01 Last Admin: 04/19/17 11:16 Dose: 100 mg Escitalopram Oxalate (Lexapro) 5 mg PO DAILY [facility] Last Admin: 04/19/17 11:16 Dose: 5 mg Guaifenesin (Mucinex La) 600 mg PO Q6H [facility] Last Admin: 04/19/17 11:18 Dose: 600 mg Vancomycin HCl (Vancomycin 1gm) 1 gm in 250 mls @ 167 mls/hr IVPB Q12H [facility] PRN Reason: Protocol Last Admin: 04/19/17 11:20 Dose: 167 mls/hr Meropenem/Sodium Chloride (Meropenem 1g/Ns 100ml Ivpb) 1 gm in 100 mls @ 100 mls/hr IVPB Q8 [facility] PRN Reason: Protocol Stop: 04/23/17 07:36 Last Admin: 04/19/17 06:24 Dose: 100 mls/hr Levalbuterol HCl (Xopenex) 0.63 mg IH [id number] PRN PRN Reason: Shortness of Breath Last Admin: 04/18/17 13:15 Dose: 0.63 mg Lidocaine (Lidoderm) 1 ea TD DAILY [facility] Last Admin: 04/19/17 11:17 Dose: 1 ea Loratadine (Claritin) 10 mg PO DAILY [facility] Last Admin: 04/18/17 10:02 Dose: 10 mg Megestrol Acetate (Megace) 400 mg PO DAILY [facility] Last Admin: 04/19/17 11:18 Dose: 400 mg Methylprednisolone (Solu-Medrol) 40 mg IVP Q12 [facility] Last Admin: 04/19/17 11:19 Dose: 40 mg Montelukast Sodium (Singulair) 10 mg PO HS [facility] Last Admin: 04/18/17 22:20 Dose: 10 mg Morphine Sulfate (Morphine) 1.5 mg IVP Q3H PRN PRN Reason: Pain, moderate (4-7) Last Admin: 04/19/17 11:43 Dose: 1.5 mg Multivitamins/Minerals (Therapeutic-M Tab) 1 tab PO DAILY [facility] Last Admin: 04/19/17 11:17 Dose: 1 tab Non-Formulary Medication (Quinine Sulfate [Qualaquin]) 324 mg PO DAILY [facility] Last Admin: 04/19/17 11:19 Dose: Not Given Amitiza 24 Mcg 0 mg PO DAILY [facility] Last Admin: 04/19/17 11:25 Dose: 24 mg Nystatin (Nystatin Oral Susp) 5 ml PO BID [facility] Last Admin: 04/18/17 17:36 Dose: 5 ml Pantoprazole Sodium (Protonix Ec Tab) 40 mg PO 0600 [facility] Last Admin: 04/19/17 06:24 Dose: 40 mg Sucralfate (Carafate Oral Susp) 1 gm PO 0600,1600 [facility] Last Admin: 04/19/17 06:24 Dose: 1 gm Tamsulosin HCl (Flomax) 0.4 mg PO DAILY [facility] Last Admin: 04/19/17 11:17 Dose: 0.4 mg Tiotropium Sax[place] (Spiriva) 18 mcg IH DAILY [facility] Last Admin: 04/19/17 11:15 Dose: 18 mcg Tramadol/Acetaminophen (Ultracet 37.5/325 Mg) 1 tab PO Q12H [facility] Last Admin: 04/19/17 11:15 Dose: 1 tab - Labs Labs: 04/19/17 07:20 04/19/17 07:20 PT 10.3 SECONDS (9.4-12.5) 04/09/17 17:15 INR 0.91 (0.93-1.08) L 04/09/17 17:15 APTT 28.2 Seconds (25.1-36.5) 04/09/17 17:15 - Constitutional Appears: Non-toxic, No Acute Distress - Head Exam Head Exam: ATRAUMATIC, NORMAL INSPECTION, NORMOCEPHALIC - ENT Exam ENT Exam: Mucous Membranes Dry, Mucous Membranes Moist, Normal Exam - Respiratory Exam Respiratory Exam: Decreased Breath Sounds, Wheezes, NORMAL BREATHING PATTERN - Cardiovascular Exam Cardiovascular Exam: RRR, +S1, +S2 - GI/Abdominal Exam GI & Abdominal Exam: Soft, Normal Bowel Sounds. absent: Tenderness - Extremities Exam Extremities Exam: Normal Inspection. 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 Previous chest CT did not show signs of a PE, but did show a new left upper lobe with consolidation. Patient on Vancomycin, Merrem, and Doxycycline for treatment. Patient instructed to use BIPAP at night for severe COPD. Palliative care is following, will speak with again today. Will continue current medications. Continue to monitor closely. Prognosis is poor. Plan discussed with Dr. Ferreira. Gianna, PGY-2
--- NOTE | 2017-04-19 13:43 | CP.PCM.PN ---
Subjective - Date & Time of Evaluation Date of Evaluation: 04/19/17 Time of Evaluation: 13:00 - Subjective Subjective: Alert, oriented. Dyspnea on exertion, otherwise no complaints Objective - Vital Signs/Intake and Output Vital Signs (last 24 hours): Temp Pulse Resp BP Pulse Ox 97.6 F 109 H 22 137/84 94 L 04/19/17 08:35 04/19/17 08:35 04/19/17 08:35 04/19/17 08:35 04/19/17 08:35 Intake and Output: 04/19/17 04/19/17 06:59 18:59 Intake Total 420 Output Total 200 Balance 220 - Medications Medications: Current Medications Acetaminophen (Tylenol 325mg Tab) 650 mg PO Q4H PRN PRN Reason: Headache Last Admin: 04/18/17 15:21 Dose: 650 mg Acetylcysteine (Acetylcysteine 20%) 4 ml IH [id number] [facility] Last Admin: 04/19/17 09:05 Dose: Not Given Albuterol Sulfate (Albuterol 0.083% Inhal Rylee (2.5 Mg/3 Ml) Ud) 2.5 mg INH [id number] PRN PRN Reason: Shortness of Breath Last Admin: 04/16/17 08:15 Dose: 2.5 mg Alprazolam (Xanax) 0.25 mg PO QID PRN; Protocol PRN Reason: Anxiety Stop: 04/21/17 14:01 Last Admin: 04/19/17 11:54 Dose: 0.25 mg Arformoterol Tartrate (Brovana) 15 mcg IH [id number] [facility] Last Admin: 04/19/17 08:45 Dose: 15 mcg Aspirin (Ecotrin) 81 mg PO DAILY [facility] Last Admin: 04/19/17 11:17 Dose: 81 mg Benzocaine/Menthol (Cepacol Sore Throat) 1 carlos MT Q3H PRN PRN Reason: Sore Throat Last Admin: 04/16/17 22:17 Dose: 1 carlos Benzonatate (Tessalon Perles) 100 mg PO TID [facility] Last Admin: 04/19/17 11:17 Dose: 100 mg Budesonide (Pulmicort Respules) 1 mg IH [id number] [facility] Last Admin: 04/19/17 08:45 Dose: 0.5 mg Doxycycline Hyclate (Doryx) 100 mg PO Q12 [facility] PRN Reason: Protocol Stop: 04/23/17 22:01 Last Admin: 04/19/17 11:16 Dose: 100 mg Escitalopram Oxalate (Lexapro) 5 mg PO DAILY [facility] Last Admin: 04/19/17 11:16 Dose: 5 mg Guaifenesin (Mucinex La) 600 mg PO Q6H [facility] Last Admin: 04/19/17 11:18 Dose: 600 mg Vancomycin HCl (Vancomycin 1gm) 1 gm in 250 mls @ 167 mls/hr IVPB Q12H [facility] PRN Reason: Protocol Last Admin: 04/19/17 11:20 Dose: 167 mls/hr Meropenem/Sodium Chloride (Meropenem 1g/Ns 100ml Ivpb) 1 gm in 100 mls @ 100 mls/hr IVPB Q8 [facility] PRN Reason: Protocol Stop: 04/23/17 07:36 Last Admin: 04/19/17 06:24 Dose: 100 mls/hr Levalbuterol HCl (Xopenex) 0.63 mg IH [id number] PRN PRN Reason: Shortness of Breath Last Admin: 04/18/17 13:15 Dose: 0.63 mg Lidocaine (Lidoderm) 1 ea TD DAILY [facility] Last Admin: 04/19/17 11:17 Dose: 1 ea Loratadine (Claritin) 10 mg PO DAILY [facility] Last Admin: 04/18/17 10:02 Dose: 10 mg Megestrol Acetate (Megace) 400 mg PO DAILY [facility] Last Admin: 04/19/17 11:18 Dose: 400 mg Methylprednisolone (Solu-Medrol) 40 mg IVP Q12 [facility] Last Admin: 04/19/17 11:19 Dose: 40 mg Montelukast Sodium (Singulair) 10 mg PO HS [facility] Last Admin: 04/18/17 22:20 Dose: 10 mg Morphine Sulfate (Morphine) 1.5 mg IVP Q3H PRN PRN Reason: Pain, moderate (4-7) Last Admin: 04/19/17 11:43 Dose: 1.5 mg Multivitamins/Minerals (Therapeutic-M Tab) 1 tab PO DAILY [facility] Last Admin: 04/19/17 11:17 Dose: 1 tab Non-Formulary Medication (Quinine Sulfate [Qualaquin]) 324 mg PO DAILY [facility] Last Admin: 04/19/17 11:19 Dose: Not Given Amitiza 24 Mcg 0 mg PO DAILY [facility] Last Admin: 04/19/17 11:25 Dose: 24 mg Nystatin (Nystatin Oral Susp) 5 ml PO BID [facility] Last Admin: 04/18/17 17:36 Dose: 5 ml Pantoprazole Sodium (Protonix Ec Tab) 40 mg PO 0600 [facility] Last Admin: 04/19/17 06:24 Dose: 40 mg Sucralfate (Carafate Oral Susp) 1 gm PO 0600,1600 [facility] Last Admin: 04/19/17 06:24 Dose: 1 gm Tamsulosin HCl (Flomax) 0.4 mg PO DAILY [facility] Last Admin: 04/19/17 11:17 Dose: 0.4 mg Tiotropium [place] (Spiriva) 18 mcg IH DAILY [facility] Last Admin: 04/19/17 11:15 Dose: 18 mcg Tramadol/Acetaminophen (Ultracet 37.5/325 Mg) 1 tab PO Q12H [facility] Last Admin: 04/19/17 11:15 Dose: 1 tab - Labs Labs: 04/19/17 07:20 04/19/17 07:20 PT 10.3 SECONDS (9.4-12.5) 04/09/17 17:15 INR 0.91 (0.93-1.08) L 04/09/17 17:15 APTT 28.2 Seconds (25.1-36.5) 04/09/17 17:15 - Constitutional Appears: Cachectic, Chronically Ill - Eye Exam Eye Exam: Normal appearance, PERRL - ENT Exam ENT Exam: Mucous Membranes Moist, Normal Oropharynx - Neck Exam Neck Exam: Normal Inspection - Respiratory Exam Respiratory Exam: Decreased Breath Sounds - Cardiovascular Exam Cardiovascular Exam: Tachycardia, +S1, +S2 - GI/Abdominal Exam GI & Abdominal Exam: Soft, Normal Bowel Sounds - Extremities Exam Extremities Exam: Normal Capillary Refill, Normal Inspection - Neurological Exam Neurological Exam: Alert, Oriented x3 - Skin Skin Exam: Dry, Pallor Assessment and Plan - Assessment and Plan (Free Text) Assessment: 71 year old male with history of COPD, esophageal cancer, cahcexia, and depression who is admitted with sepsis, pneumonia, cachexia, intractable pain and anemia Patient offers no complaints. He is alert and oriented, is at beside Goals of care and advance care planning discussion took place. Patient understands diagnosis and guarded prognosis. States quality of life is tolerable. Option to discontinue medical care and pursue comfort care discussed. States that he is willing to pursue treatment at this time. We also spoke about resuscitation status in detail. Patient does not want intubation, feeding tube, dialysis. However, he is willing to have CPR. He is aware of both the benefit and burden of CPR. Questions have been answered. A POLST is completed. The patients Alana is his surrogate, she is in agreement with his wishes. Time spent in goals of care and advance care planning discussion with patient and , 45 minutes Plan: Palliative support in establishing goals of care POLST: DNI
[2017-04-19] MEDS: Nystatin 100,000 Units/ml Oral Susp 5 ml UD PO SCH ×2 (14:38→18:24)
[2017-04-19] MEDS ORDERED: Capsaicin 0.075% Cream(60 gm) TOP SCH (15:00)
--- NOTE | 2017-04-19 15:27 | CP.PCM.PN ---
Subjective - Date & Time of Evaluation Date of Evaluation: 04/19/17 Time of Evaluation: 13:55 - Subjective Subjective: Still having shortness of breath even at rest, although better compared to yesterday, no fevers overnight. Objective - Vital Signs/Intake and Output Vital Signs (last 24 hours): Temp Pulse Resp BP Pulse Ox 97.6 F 109 H 22 137/84 94 L 04/19/17 08:35 04/19/17 08:35 04/19/17 08:35 04/19/17 08:35 04/19/17 08:35 Intake and Output: 04/19/17 04/19/17 06:59 18:59 Intake Total 420 Output Total 200 Balance 220 - Medications Medications: Current Medications Acetaminophen (Tylenol 325mg Tab) 650 mg PO Q4H PRN PRN Reason: Headache Last Admin: 04/18/17 15:21 Dose: 650 mg Acetylcysteine (Acetylcysteine 20%) 4 ml IH [id number] [facility] Last Admin: 04/19/17 09:05 Dose: Not Given Albuterol Sulfate (Albuterol 0.083% Inhal Rylee (2.5 Mg/3 Ml) Ud) 2.5 mg INH [id number] PRN PRN Reason: Shortness of Breath Last Admin: 04/16/17 08:15 Dose: 2.5 mg Alprazolam (Xanax) 0.25 mg PO QID PRN; Protocol PRN Reason: Anxiety Stop: 04/21/17 14:01 Last Admin: 04/19/17 11:54 Dose: 0.25 mg Arformoterol Tartrate (Brovana) 15 mcg IH [id number] [facility] Last Admin: 04/19/17 08:45 Dose: 15 mcg Aspirin (Ecotrin) 81 mg PO DAILY [facility] Last Admin: 04/19/17 11:17 Dose: 81 mg Benzocaine/Menthol (Cepacol Sore Throat) 1 carlos MT Q3H PRN PRN Reason: Sore Throat Last Admin: 04/16/17 22:17 Dose: 1 carlos Benzonatate (Tessalon Perles) 100 mg PO TID [facility] Last Admin: 04/19/17 11:17 Dose: 100 mg Budesonide (Pulmicort Respules) 1 mg IH [id number] [facility] Last Admin: 04/19/17 08:45 Dose: 0.5 mg Doxycycline Hyclate (Doryx) 100 mg PO Q12 [facility] PRN Reason: Protocol Stop: 04/23/17 22:01 Last Admin: 04/19/17 11:16 Dose: 100 mg Escitalopram Oxalate (Lexapro) 5 mg PO DAILY [facility] Last Admin: 04/19/17 11:16 Dose: 5 mg Guaifenesin (Mucinex La) 600 mg PO Q6H [facility] Last Admin: 04/19/17 11:18 Dose: 600 mg Vancomycin HCl (Vancomycin 1gm) 1 gm in 250 mls @ 167 mls/hr IVPB Q12H [facility] PRN Reason: Protocol Last Admin: 04/19/17 11:20 Dose: 167 mls/hr Meropenem/Sodium Chloride (Meropenem 1g/Ns 100ml Ivpb) 1 gm in 100 mls @ 100 mls/hr IVPB Q8 [facility] PRN Reason: Protocol Stop: 04/23/17 07:36 Last Admin: 04/19/17 06:24 Dose: 100 mls/hr Levalbuterol HCl (Xopenex) 0.63 mg IH [id number] PRN PRN Reason: Shortness of Breath Last Admin: 04/18/17 13:15 Dose: 0.63 mg Lidocaine (Lidoderm) 1 ea TD DAILY [facility] Last Admin: 04/19/17 11:17 Dose: 1 ea Loratadine (Claritin) 10 mg PO DAILY [facility] Last Admin: 04/18/17 10:02 Dose: 10 mg Megestrol Acetate (Megace) 400 mg PO DAILY [facility] Last Admin: 04/19/17 11:18 Dose: 400 mg Methylprednisolone (Solu-Medrol) 40 mg IVP Q12 [facility] Last Admin: 04/19/17 11:19 Dose: 40 mg Montelukast Sodium (Singulair) 10 mg PO HS [facility] Last Admin: 04/18/17 22:20 Dose: 10 mg Morphine Sulfate (Morphine) 1.5 mg IVP Q3H PRN PRN Reason: Pain, moderate (4-7) Last Admin: 04/19/17 11:43 Dose: 1.5 mg Multivitamins/Minerals (Therapeutic-M Tab) 1 tab PO DAILY [facility] Last Admin: 04/19/17 11:17 Dose: 1 tab Non-Formulary Medication (Quinine Sulfate [Qualaquin]) 324 mg PO DAILY [facility] Last Admin: 04/19/17 11:19 Dose: Not Given Amitiza 24 Mcg 0 mg PO DAILY [facility] Last Admin: 04/19/17 11:25 Dose: 24 mg Nystatin (Nystatin Oral Susp) 5 ml PO BID [facility] Last Admin: 04/18/17 17:36 Dose: 5 ml Pantoprazole Sodium (Protonix Ec Tab) 40 mg PO 0600 [facility] Last Admin: 04/19/17 06:24 Dose: 40 mg Sucralfate (Carafate Oral Susp) 1 gm PO 0600,1600 [facility] Last Admin: 04/19/17 06:24 Dose: 1 gm Tamsulosin HCl (Flomax) 0.4 mg PO DAILY [facility] Last Admin: 04/19/17 11:17 Dose: 0.4 mg Tiotropium [place] (Spiriva) 18 mcg IH DAILY [facility] Last Admin: 04/19/17 11:15 Dose: 18 mcg Tramadol/Acetaminophen (Ultracet 37.5/325 Mg) 1 tab PO Q12H [facility] Last Admin: 04/19/17 11:15 Dose: 1 tab - Labs Labs: 04/19/17 07:20 04/19/17 07:20 PT 10.3 SECONDS (9.4-12.5) 04/09/17 17:15 INR 0.91 (0.93-1.08) L 04/09/17 17:15 APTT 28.2 Seconds (25.1-36.5) 04/09/17 17:15 - Constitutional Appears: Cachectic, Chronically Ill - Head Exam Head Exam: NORMAL INSPECTION - Neck Exam Neck Exam: absent: Meningismus - Respiratory Exam Respiratory Exam: Decreased Breath Sounds - Cardiovascular Exam Cardiovascular Exam: +S1, +S2 - GI/Abdominal Exam GI & Abdominal Exam: Soft. absent: Tenderness Assessment and Plan - Assessment and Plan (Free Text) Plan: Assessment Severe sepsis due to multifocal HCAP on top of bilateral heel ulcers with cellulitis with new onset leukocytosis COPD HTN chronic CHF CAD S/P PCI Plan Continue Vancomycin and Merrem (day 7) for 7-10 days overall prognosis is poor
[2017-04-19 17:08] LABS: HEMOGLOBIN 9.7 g/dL (14.0-18.0); MEAN CELL VOLUME 90.2 fl (80.0-105.0); MEAN PLATELET VOLUME 8.7 fl (7.0-11.0); RBC 3.47 10^6/uL (3.5-6.1); RED CELL DISTRIBUTION WIDTH 15.7 % (11.5-14.5); WHITE BLOOD COUNT 17.4 10^3/ul (4.5-11.0)
[2017-04-19] MEDS: Capsaicin 0.075% Cream(60 gm) TOP SCH ×2 (18:31→22:40)
[2017-04-19] MEDS ORDERED: Home Med 1 UNIT PO SCH (20:00)
--- NOTE | 2017-04-19 21:20 | PN ---
DATE: 04/19/2017 PULMONARY PROGRESS NOTE REFERRING PHYSICIAN: Abhijeet Vigil MD. SUBJECTIVE: The patient is sitting up in a chair. is at bedside. Night was unremarkable. Part of the night used BiPAP. No headache. No rhinitis. Has a hoarseness, dry throat, cough with clear sputum. No nausea. No vomiting, diarrhea, leg pain, leg swelling. PHYSICAL EXAMINATION: GENERAL: In no acute distress. VITAL SIGNS: Temp is 98, heart rate 109, respiratory rate is 22, blood pressure 137/84, pulse ox 94% on 3 L nasal cannula. HEENT: Moist mucous membrane. Small oral cavity. NECK: Supple. No JVD. LUNGS: Have poor air flow. Prolonged expiratory phase with some wheezing. HEART: S1 and S2. ABDOMEN: Soft and nontender. No organomegaly. EXTREMITIES: There is no edema. NEUROLOGICAL: Awake, alert. Follows simple command. LABORATORY DATA: Shows hemoglobin 9.7, hematocrit 31.3, WBC 17,000, platelet is 230. Sodium 144, potassium 5.0, chloride 98, bicarbonate 41, BUN is 22, creatinine is 0.7, glucose 103, calcium is 10.8, AST 34, ALT 36, alk phos is 83, albumin is 3.0. Stool occult blood has been positive. Influenza negative in the past. Blood culture and urine culture, there is no growth. MEDICATIONS: He is on Mucomyst 4 mL inhaled q. 6 hours, albuterol nebulized q. 6 hours p.r.n., Brovana inhaled twice a day, Carafate twice a day, Cepacol lozenges q. 3 hours p.r.n., Claritin 10 mg daily, doxycycline 1 mg twice a day, Ecotrin 81 mg daily, Flomax 0.4 mg daily, Lexapro 5 mg daily, Lidoderm patch to affected area, Megace 400 mg daily, meropenem 1 g IV q. 8 hours, morphine 1.5 mg q. 3 hours p.r.n., Mucinex LA 600 mg q. 6 hours, nystatin oral suspension 5 mL twice a day, Protonix 40 mg daily, Pulmicort inhaled twice a day, quinine 324 mg daily, Singulair 10 mg daily, Solu-Medrol is at 40 mg q. 12 hours, Spiriva inhaled daily, Tessalon Perles 100 mg three times a day, multivitamins daily, Tylenol p.r.n. Ultracet 37.5/325 one tab at bedtime p.r.n., vancomycin 1 g IV q. 12 hours, Xanax 0.25 mg q.i.d. p.r.n., started on Zostrix topically q. 4 hours. IMPRESSION AND PLAN: Chronic obstructive lung disease, metastatic esophageal cancer, gastroesophageal reflux disease, right upper lobe metastatic cavitary lesion, left upper lobe infiltrate, right lower lobe infiltrate, has a hoarseness. Spoke to the patient's at bedside. All the questions answered. Spoke to Dr. Ferreira. May need ENT evaluation to look at it. Needs a panendoscopy to assure there is no paralysis of the vocal cord. Continue intravenous and inhaled bronchodilators, keep head at 45 degrees. Bilevel positive airway pressure humidification decreased to the lowest setting. Gastric prophylaxis. Deep venous thrombosis prophylaxis. May need to get VBG to assess pCO2. We will follow with you. Jesika Srivastava MD
--- NOTE | 2017-04-19 21:43 | PN ---
DATE: REASON FOR CONSULTATION AND FOLLOWUP: Chest pain, left sided, atypical; cardiac evaluation; COPD; history of esophageal cancer. SUBJECTIVE: Patient is complaining of still mild chest pain on taking a deep breath. OBJECTIVE: GENERAL: Mild short of breath. VITAL SIGNS: Temperature afebrile, heart rate 103, blood pressure 137/84. HEENT: PERRLA. Extraocular muscles intact. NECK: Supple. No carotid bruit, no thyromegaly. CHEST: Clear to auscultation. HEART: S1, S2, regular. ABDOMEN: Soft. EXTREMITIES: Clubbing and cyanosis negative. LABORATORY DATA: Blood workup as follows, WBC , hemoglobin 10.8, hematocrit 33.1, platelet count 370. Chemistry shows sodium 144, potassium 5, chloride 97, carbon dioxide 41, anion gap of 9, BUN 22, creatinine 0.4. IMPRESSION: Protein-calorie malnutrition, which was not present on admission; leukocytosis; failure to thrive; atypical chest pain from esophageal cancer, difficulty in swallowing the solid food secondary to esophageal cancer; ex-smoker; bone scan negative for bony metastasis. Last echo, 04/12/2017, showed ejection fraction 55%, moderate mitral regurgitation, [id number] tricuspid regurgitation, shortness of breath, multifactorial, secondary to underlying chronic obstructive pulmonary disease as well as underlying cancer. RECOMMENDATION: Continue aggressive treatment, adequate analgesia,treatment of COPD, increase nutritional support. We will follow with you. CVS status is stable. We will sign off, glad to follow up p.r.n. Thank you Dr. Ferreira for providing us the opportunity in taking care of the patient, Anurag Simms. Jesika Moran MD
[2017-04-20] MEDS: Morphine 5 MG/ML SYRINGE IVP PRN ×3 (01:56→11:51)
[2017-04-20] MEDS: Acetylcysteine 20% Inhal Soln (4ml) IH SCH ×4 (02:26→20:50)
[2017-04-20] MEDS: Capsaicin 0.075% Cream(60 gm) TOP SCH ×7 (03:28→23:00)
[2017-04-20] MEDS: Meropenem 1g/NS 100mL IVPB 1 GM/100 ML PIGGYBACK IVPB SCH ×2 (06:32→15:21)
[2017-04-20] MEDS: guaiFENesin 600 mg ER Tab PO SCH ×4 (06:34→22:23)
[2017-04-20] MEDS: Pantoprazole 40 mg EC Tab PO SCH (06:35)
[2017-04-20] MEDS: Sucralfate 1 gm/10 ml Oral Susp UD PO SCH ×2 (06:50→15:21)
[2017-04-20] MEDS: Arformoterol 15 mcg/2 ml Inh Sol IH SCH ×2 (08:00→20:50)
[2017-04-20] MEDS: Budesonide 0.5 mg/2 ml Inhal Susp UD IH SCH ×2 (08:01→20:50)
[2017-04-20 08:34] LABS: HEMOGLOBIN 9.6 g/dL (14.0-18.0); MEAN CELL VOLUME 91.1 fl (80.0-105.0); MEAN CORPUSCULAR HEMOGLOBIN 27.7 pg (25.0-35.0); MEAN CORPUSCULAR HGB CONC 30.4 g/dl (31.0-37.0); MEAN PLATELET VOLUME 9.2 fl (7.0-11.0); RBC 3.47 10^6/uL (3.5-6.1); RED CELL DISTRIBUTION WIDTH 15.6 % (11.5-14.5); WHITE BLOOD COUNT 15.1 10^3/ul (4.5-11.0)
[2017-04-20 08:42] LABS: VENOUS BLOOD GAS BASE EXCESS 17.6 mmol/L (0.0-2.0); VENOUS BLOOD GAS PO2 67 mm/Hg (30-55); VENOUS BLOOD PH 7.41 (7.32-7.43)
[2017-04-20 09:35] LABS: ALB/GLOB RATIO 0.9 (1.1-1.8); ALBUMIN 2.9 g/dL (3.0-4.8); ALT/SGPT 37 U/L (7-56); AST/SGOT 22 U/L (17-59); BLOOD UREA NITROGEN 20 mg/dL (7-21); CALCIUM 10.4 mg/dL (8.4-10.5); GFR AFRICAN-AMERICAN > 60; GFR NON-AFRICAN AMERICAN > 60
[2017-04-20] MEDS: Megestrol Acetate 40 mg/ml Cup PO SCH (11:42)
[2017-04-20] MEDS: Lidocaine 5% Patch TD SCH ×2 (11:42→12:05)
[2017-04-20] MEDS: Nystatin 100,000 Units/ml Oral Susp 5 ml UD PO SCH ×2 (11:42→18:51)
[2017-04-20] MEDS: Vancomycin 1gm in NS 250ml 1 GM/250 ML BAG IVPB SCH (11:43)
[2017-04-20] MEDS: MethylPREDNISolone 40 mg Vial IVP SCH (11:43)
[2017-04-20] MEDS: Tiotropium 18 mcg Cap For Inhalation IH SCH (11:43)
[2017-04-20] MEDS: Multivitamin With Minerals Tab PO SCH (11:43)
[2017-04-20] MEDS: AMITIZA 24 MCG PO SCH ×2 (11:57→18:51)
[2017-04-20] MEDS: Levalbuterol 0.63 MG/3 ML Inhal Soln UD IH PRN (13:43)
[2017-04-20] MEDS: QUININE SULFATE 324 MG PO SCH (13:58)
[2017-04-20] MEDS: TraMADol/Apap 37.5/325 mg Tab PO SCH (22:21)
[2017-04-21] MEDS: Meropenem 1g/NS 100mL IVPB 1 GM/100 ML PIGGYBACK IVPB SCH ×3 (00:13→14:45)
[2017-04-21] MEDS: MethylPREDNISolone 40 mg Vial IVP SCH ×4 (00:14→19:08)
[2017-04-21] MEDS: Vancomycin 1gm in NS 250ml 1 GM/250 ML BAG IVPB SCH ×2 (00:16→10:47)
--- NOTE | 2017-04-21 00:51 | PN ---
DATE: 04/20/2017 SUBJECTIVE: The patient is seen earlier this morning. He appears end stage and weak. PHYSICAL EXAMINATION: VITAL SIGNS: with a temperature of 98, blood pressure is 130/80, respiratory rate of 20, heart rate of 121. HEENT: Unremarkable. NECK: Supple. LUNGS: Decreased breath sounds. HEART: Normal S1, S2. ABDOMEN: Soft. LABORATORY DATA: [place] [id number], hemoglobin of 9, platelets of 202. Chemistries reveal the BUN of 20, creatinine of 0.4. Urinalysis is noted and stool for occult positive blood. Influenza is negative. ASSESSMENT AND PLAN: A 71-year-old male with severe sepsis due to multifocal healthcare-associated pneumonia on top of a chronic bilateral heel ulcers and cellulitis, new onset of leukocytosis, chronic obstructive pulmonary disease, chronic congestive heart failure on vancomycin and meropenem day #8. We will discontinue the vancomycin and meropenem in the next 24 hours. The patient is also on Solu-Medrol which may explain the leukocytosis. Kwame Horta MD
[2017-04-21] MEDS: Acetylcysteine 20% Inhal Soln (4ml) IH SCH ×4 (02:30→21:37)
[2017-04-21] MEDS: Capsaicin 0.075% Cream(60 gm) TOP SCH ×6 (03:00→23:21)
--- NOTE | 2017-04-21 03:05 | PN ---
DATE: 04/20/2017 PULMONARY PROGRESS NOTE REFERRING PHYSICIAN: Abhijeet Vigil MD SUBJECTIVE: He is out of bed to chair. Agitated and anxious at time. Having cough and producing sputum. Short of breath. Upper back pain is a little better. No nausea, no vomiting, no diarrhea. Has a ankle swelling. PHYSICAL EXAMINATION GENERAL: In no acute distress. VITAL SIGNS: Temp is 98, heart rate is 107, respiratory rate is 22, blood pressure 128/79, pulse ox 98% on nasal cannula. HEENT: Moist mucous membrane. No ulcer or thrush noted. NECK: Supple. No JVD. LUNGS: Has a very poor airflow with prolonged expiratory phase with wheezing. HEART: S1 and S2. ABDOMEN: Soft, nontender. No organomegaly. EXTREMITIES: There is some ankle edema. NEUROLOGICAL: Awake and alert. Follow simple commands. MEDICATIONS: He is on Mucomyst 20% inhaled q.6 hours, albuterol inhaled q.6 hours p.r.n., Brovana inhaled twice a day, Carafate 1 gram twice a day, Cepacol lozenges q.3 hours p.r.n., Claritin 10 mg daily, doxycycline 100 mg twice a day, Ecotrin 81 mg daily, Flomax 0.4 mg daily, Lexapro 5 mg daily, lidocaine patch effected area, Megace 400 mg daily, meropenem 1 gram q.8 hours, morphine 1.5 mg q.3 hours p.r.n., Mucinex LA 600 mg q.6 hours, nystatin oral suspension 5 mL q.12 hours, Protonix 40 mg daily, Pulmicort inhaler twice a day, quinine 325 mg daily, Singulair 10 mg daily, Solu-Medrol 40 mg q.12 hours, Spiriva 1 capsule inhaled daily, Tessalon Perles 100mg three times a day, multivitamins daily, Tylenol p.r.n., Ultracet 37.5/325 one tab at bedtime, vancomycin 1 gram q.12 hours, Xanax 0.25 mg q.i.d. p.r.n., Xopenex inhaled q.6. hours, Zostrix at affected area. LABORATORY DATA: Shows hemoglobin 9.6, hematocrit 31.6, WBC 15.1, platelet count is 402. Has a VBG done which shows pH 7.41, pCO2 is 73, O2 of 67. Sodium 142, potassium 4.2, chloride 96, bicarbonate 38, BUN 20, creatinine 0.4, glucose 94, calcium 10.4. AST 22, ALT 37, alk phos 75, albumin is 2.9. MICROBIOLOGY: Blood culture, urine culture is no growth. IMPRESSION AND PLAN: Chronic obstructive lung disease, metastatic esophageal cancer, gastroesophageal reflux disease, right upper lobe cavitary lesion, left upper and right lower lobe pneumonia, hoarseness, anxious and agitated. Spoke to patient and patient's at bedside. All the questions answered. We will increase Solu-Medrol to 40 mg q.8 hours, continue inhaled bronchodilator. May add Diamox 250 mg p.o. daily, cough suppression, gastric prophylaxis, deep vein thrombosis prophylaxis, fall precaution, palliative care follow up. Jesika Srivastava MD
[2017-04-21] MEDS: Morphine 5 MG/ML SYRINGE IVP PRN ×4 (03:08→21:14)
[2017-04-21] MEDS: Sucralfate 1 gm/10 ml Oral Susp UD PO SCH ×2 (06:17→14:45)
[2017-04-21] MEDS: Pantoprazole 40 mg EC Tab PO SCH (06:17)
[2017-04-21] MEDS: Arformoterol 15 mcg/2 ml Inh Sol IH SCH ×2 (07:40→21:37)
[2017-04-21] MEDS: Budesonide 0.5 mg/2 ml Inhal Susp UD IH SCH ×2 (07:41→21:44)
[2017-04-21 08:53] LABS: HEMOGLOBIN 9.8 g/dL (14.0-18.0); MEAN CELL VOLUME 89.9 fl (80.0-105.0); MEAN CORPUSCULAR HEMOGLOBIN 27.4 pg (25.0-35.0); MEAN CORPUSCULAR HGB CONC 30.4 g/dl (31.0-37.0); MEAN PLATELET VOLUME 8.9 fl (7.0-11.0); RBC 3.58 10^6/uL (3.5-6.1); RED CELL DISTRIBUTION WIDTH 15.4 % (11.5-14.5); WHITE BLOOD COUNT 17.7 10^3/ul (4.5-11.0)
[2017-04-21 09:14] LABS: ALBUMIN 2.9 g/dL (3.0-4.8); ALT/SGPT 30 U/L (7-56); AST/SGOT 27 U/L (17-59); BLOOD UREA NITROGEN 17 mg/dL (7-21); CALCIUM 10.1 mg/dL (8.4-10.5); GFR AFRICAN-AMERICAN > 60; GFR NON-AFRICAN AMERICAN > 60
[2017-04-21] MEDS: Nystatin 100,000 Units/ml Oral Susp 5 ml UD PO SCH ×2 (10:46→19:08)
[2017-04-21] MEDS: Megestrol Acetate 40 mg/ml Cup PO SCH (10:46)
[2017-04-21] MEDS: Tiotropium 18 mcg Cap For Inhalation IH SCH (10:47)
[2017-04-21] MEDS: AMITIZA 24 MCG PO SCH ×2 (10:47→19:11)
[2017-04-21] MEDS: Multivitamin With Minerals Tab PO SCH (10:47)
[2017-04-21] MEDS: QUININE SULFATE 324 MG PO SCH (10:48)
[2017-04-21] MEDS: guaiFENesin 600 mg ER Tab PO SCH ×4 (10:50→23:19)
[2017-04-21] MEDS: Lidocaine 5% Patch TD SCH (10:50)
[2017-04-21] MEDS: Levalbuterol 0.63 MG/3 ML Inhal Soln UD IH PRN (13:55)
--- NOTE | 2017-04-21 19:44 | PN ---
DATE: 04/21/2017 LOCATION: 8 bed 2. SUBJECTIVE: Patient is chronically ill, debilitated, end-stage, short of breath. PHYSICAL EXAMINATION VITAL SIGNS: Temperature of 98, blood pressure is 120/80, respiratory rate of 21, heart rate of 94. HEENT: Unremarkable. NECK: Supple. LUNGS: Decreased breath sounds. HEART: Normal S1, S2. ABDOMEN: Soft. LABORATORY DATA: [place] [address], hemoglobin of 9, platelets of 432. Chemistries reveal a BUN of 17, creatinine of 0.4, and procalcitonin is 0.30. Urinalysis is noted. Stool occult blood is positive. Influenza is negative. Microbiology is noted. Blood cultures are negative. MEDICATIONS: Review of orders reveals patient to be on meropenem, Solu-Medrol, vancomycin. Reviewed Dr. Srivastava's progress note from yesterday. ASSESSMENT AND PLAN: This is a 71-year-old male with severe sepsis due to multifocal healthcare-associated pneumonia on top of chronic bilateral heel ulcers and cellulitis with chronic obstructive lung disease and chronic congestive heart failure, day #9 of vancomycin and meropenem. We will discontinue the antibiotics. No further antibiotics needed. Overall prognosis is quite poor. Patient is at very high risk of developing new nosocomial infections. Kwame Horta MD
[2017-04-21] MEDS: Saliva Substitute 44.3 ML PO SCH (23:19)
[2017-04-21] MEDS: TraMADol/Apap 37.5/325 mg Tab PO SCH (23:25)
--- NOTE | 2017-04-22 00:59 | PN ---
DATE: 04/21/2017 PULMONARY PROGRESS NOTE REFERRING PHYSICIAN: Abhijeet Vigil MD. SUBJECTIVE: The patient is sitting up in a chair, feels better today compared to yesterday. Still has dry mouth. No nausea. No vomiting. No diarrhea. Does have a leg swelling. OBJECTIVE: GENERAL: In no acute distress. VITAL SIGNS: Temp is 98, heart rate is 100, respiratory rate is 20, blood pressure 137/72, pulse ox 98% on 2 L nasal cannula. HEENT: Moist mucous membrane. No ulcer or thrush noted. NECK: Supple. No JVD. LUNGS: Prolonged expiratory phase with wheezing. HEART: S1 and S2. ABDOMEN: Soft, nontender. No organomegaly. EXTREMITIES: There is some ankle edema. NEUROLOGICAL: Awake and alert. Follows simple command. LABORATORY DATA: Shows hemoglobin 9.8, hematocrit 32.2, WBC 17.7, platelet is 432. Sodium 139, potassium 4.3, chloride 95, bicarbonate 37, BUN 17, creatinine 0.4, calcium is 10.1, AST 27, ALT 30, alk phos is 71, albumin is 2.9. MEDICATIONS: He is on Mucomyst 20% inhaled q. 6 hours, albuterol inhaled q. 6 hours p.r.n., Brovana inhaled twice a day, Carafate 1 g twice a day, Cepacol lozenges q. 3 hours p.r.n., Claritin 10 mg daily, Diamox 25 mg daily, Ecotrin 81 mg daily, Flomax 0.4 mg daily, insulin coverage, Lexapro 5 mg daily, Lidoderm patch daily, Megace 400 mg daily, morphine 1.5 mg q. 3 hours p.r.n., Mucinex LA 600 mg q. 6 hours, nystatin 5 mL twice a day, Protonix 40 mg daily, Pulmicort inhaler twice a day, quinine 324 mg daily, Singulair 10 mg daily, Solu-Medrol 40 mg q. 6 hours, Spiriva 1 capsule inhaled daily, Tessalon Perles 100 mg three times a day, multivitamins daily, Ultracet 37.5/325 one tab at bedtime, Xopenex inhaled q. 6 hours, Zostrix at the affected area. IMPRESSION AND PLAN: Chronic obstructive lung disease, metastatic esophageal cancer, gastroesophageal reflux disease, right upper lobe cavitary lesions, left upper and right lower lobe pneumonia, hoarseness, anxious, agitated, cor pulmonale. We will add artificial saliva to mouth q. 3 hours. Continue high dose of steroid, antibiotics, inhaled bronchodilator. Continue Diamox. Add Lasix 40 mg daily. Elevate lower extremity. VINNIE stocking. Gastric prophylaxis. Deep venous thrombosis prophylaxis. Thank you and we will follow with you. Jesika Srivastava MD
[2017-04-22] MEDS: Saliva Substitute 44.3 ML PO SCH ×8 (03:00→23:31)
[2017-04-22] MEDS: Capsaicin 0.075% Cream(60 gm) TOP SCH ×6 (03:01→23:32)
[2017-04-22] MEDS: Acetylcysteine 20% Inhal Soln (4ml) IH SCH ×3 (03:07→20:22)
[2017-04-22] MEDS: MethylPREDNISolone 40 mg Vial IVP SCH ×4 (05:58→18:30)
[2017-04-22] MEDS: Pantoprazole 40 mg EC Tab PO SCH (05:59)
[2017-04-22] MEDS: Sucralfate 1 gm/10 ml Oral Susp UD PO SCH ×2 (05:59→17:49)
[2017-04-22] MEDS: Morphine 5 MG/ML SYRINGE IVP PRN ×3 (06:02→14:20)
[2017-04-22] MEDS: guaiFENesin 600 mg ER Tab PO SCH ×5 (06:02→23:31)
[2017-04-22] MEDS: Arformoterol 15 mcg/2 ml Inh Sol IH SCH ×2 (08:03→20:22)
[2017-04-22] MEDS: Budesonide 0.5 mg/2 ml Inhal Susp UD IH SCH ×2 (08:04→20:22)
[2017-04-22 08:33] LABS: ALB/GLOB RATIO 0.9 (1.1-1.8); ALBUMIN 2.5 g/dL (3.0-4.8); ALT/SGPT 34 U/L (7-56); AST/SGOT 33 U/L (17-59); BLOOD UREA NITROGEN 14 mg/dL (7-21); CALCIUM 9.9 mg/dL (8.4-10.5); GFR AFRICAN-AMERICAN > 60; GFR NON-AFRICAN AMERICAN > 60
[2017-04-22 08:54] LABS: HEMOGLOBIN 8.4 g/dL (14.0-18.0); MEAN CELL VOLUME 89.5 fl (80.0-105.0); MEAN CORPUSCULAR HEMOGLOBIN 27.6 pg (25.0-35.0); MEAN CORPUSCULAR HGB CONC 30.9 g/dl (31.0-37.0); MEAN PLATELET VOLUME 8.8 fl (7.0-11.0); RBC 3.04 10^6/uL (3.5-6.1); RED CELL DISTRIBUTION WIDTH 15.2 % (11.5-14.5); WHITE BLOOD COUNT 15.4 10^3/ul (4.5-11.0)
[2017-04-22] MEDS: Megestrol Acetate 40 mg/ml Cup PO SCH (09:32)
[2017-04-22] MEDS: AMITIZA 24 MCG PO SCH ×2 (09:33→17:50)
[2017-04-22] MEDS: Multivitamin With Minerals Tab PO SCH (09:33)
[2017-04-22] MEDS: Nystatin 100,000 Units/ml Oral Susp 5 ml UD PO SCH ×2 (09:34→17:51)
[2017-04-22] MEDS: Lidocaine 5% Patch TD SCH (09:34)
[2017-04-22] MEDS: QUININE SULFATE 324 MG PO SCH (09:35)
[2017-04-22] MEDS: Tiotropium 18 mcg Cap For Inhalation IH SCH (09:37)
--- NOTE | 2017-04-22 10:24 | PN ---
DATE: 04/22/2017 ONCOLOGY PROGRESS NOTE LOCATION: Room 578, bed 2. SUBJECTIVE: The patient is examined at the bed. His is by the bedside. Patient is agitated and anxious at times, has been having cough and productive phlegm, short of breath. Upper back pain is noted. Left-sided chest pain is little bit better, as he has been using the Capsaicin cream for his chest wall along with lesser of the IV narcotics. He had no nausea, no vomiting. He has some swelling of the ankles that is going up to the middle of the shaw on both lower extremities. No diarrhea. PHYSICAL EXAMINATION: GENERAL: Patient is in some discomfort, but is in no acute distress. VITAL SIGNS: Stable. T-max is 98.4, heart rate is 107, respirations 22, blood pressure is 128/79, O2 sat is 99% on nasal cannula. HEENT: Head is normocephalic, atraumatic. Examination of the oropharynx reveals moist mucous membranes. No ulcer or thrush is noted. NECK: Supple. There is no adenopathy. No jugular venous distension is noted. LUNGS: Has poor airflow with prolonged expiratory phase with wheezing bilaterally. HEART: Examination of the heart reveals PMI to be in the fifth intercostal space inside the midclavicular line. S1 and S2 are normal. No gallop or murmur is heard. ABDOMEN: Soft, scaphoid, and nontender. Liver and spleen are not palpable. EXTREMITIES: Reveals edema of the lower extremities, coming up to the mid shaw. NEUROLOGIC: Reveals higher functions to be normal. No focal deficits are noted. MEDICATIONS: Patient's medications were reviewed. He is on Mucomyst 20% inhaled q.6 hours, albuterol inhaled q.6 hours, Brovana inhaled twice a day, Carafate 1 g twice a day, Cepacol lozenges q.3 hours p.r.n., Claritin 10 mg daily, doxycycline 100 mg twice daily, Ecotrin 81 mg daily, Flomax 0.4 mg daily, Lexapro 5 mg daily, lidocaine patch to the affected area along with capsaicin cream, Megace 400 mg daily, meropenem 1 g IV q.8 hours, morphine 1.5 mg q.3 hours, Mucinex 600 mg q.6 hours, nystatin oral suspension 5 mL q.12 hours, Protonix 40 mg daily, Pulmicort inhaler twice a day, Quinine 325 mg daily, Singulair 10 mg daily, Solu-Medrol 40 mg IV q.12 hours, Spiriva one capsule inhale daily, Tessalon Perles 100 mg three times a day, multivitamin daily, Tylenol p.r.n., Ultracet 37.5/325 one at bedtime, vancomycin 1 g IV q.12 hours, Xanax 0.125 mg four times a day p.r.n., Xopenex inhaler q.6 hours, and Zofran as needed. LABORATORY DATA: Patient's labs reveal hemoglobin and hematocrit to be stable. Hemoglobin 9.6, hematocrit 31.6. White count is 15, platelet count is 402,000. Electrolytes are normal. BUN is 20, creatinine 0.4. Glucose 94. Calcium 10.4, AST 22, ALT 37, alkaline phosphatase 75 and albumin of 2.9. Blood cultures and urine cultures have shown no growth. 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 Patient is currently a DNI. On speaking to the today in great length, the biggest problem that we have is that the patient is failing to thrive, they just want to be kept comfortable. We have been attempting our best to do that; we are giving him option of medicines that he is currently on. His has requested that I reach out to the palliative care nurse specialist to see if she could talk to Anurag again tomorrow morning to make sure that we keep him comfortable and should be stopped doing aggressive testing at this point in time. Patient, despite all our aggressive measures, unfortunately, is failing to thrive and is having repeated episodes of infection from which we have been unable to untwine ourselves at this point in time. Part of it may be because of his swallowing refluxes being affected from the carcinoma of the esophagus itself. Time spent with the patient was more than 45 minutes. They are going to get compression stocking for the legs and they are going to look for comfort measures per se. More than 80 minutes was spent with the patient's , counseling her, and deciding which direction we should go over the next several days. María Ferreira MD
--- NOTE | 2017-04-22 11:12 | CP.PCM.PN ---
Subjective - Date & Time of Evaluation Date of Evaluation: 04/22/17 Time of Evaluation: 11:06 - Subjective Subjective: Patient seen and examined at bedside. Patient complaining of trouble breathing and severe left chest wall pain. Patient states pain is worse than usual. Denies fever, chills, nausea, vomiting, diarrhea, constipation. Objective - Vital Signs/Intake and Output Vital Signs (last 24 hours): Temp Pulse Resp BP Pulse Ox 98.2 F 100 H 20 131/73 98 04/21/17 18:07 04/21/17 18:07 04/21/17 18:07 04/22/17 09:32 04/21/17 18:07 - Medications Medications: Current Medications Acetaminophen (Tylenol 325mg Tab) 650 mg PO Q4H PRN PRN Reason: Headache Last Admin: 04/20/17 17:28 Dose: 650 mg Acetazolamide (Diamox 250 Mg Tab) 250 mg PO DAILY [facility] Last Admin: 04/22/17 09:32 Dose: 250 mg Acetylcysteine (Acetylcysteine 20%) 4 ml IH [id number] [facility] Last Admin: 04/22/17 08:03 Dose: 4 ml Albuterol Sulfate (Albuterol 0.083% Inhal Rylee (2.5 Mg/3 Ml) Ud) 2.5 mg INH [id number] PRN PRN Reason: Shortness of Breath Last Admin: 04/16/17 08:15 Dose: 2.5 mg Arformoterol Tartrate (Brovana) 15 mcg IH [id number] [facility] Last Admin: 04/22/17 08:03 Dose: 15 mcg Aspirin (Ecotrin) 81 mg PO DAILY [facility] Last Admin: 04/22/17 09:33 Dose: 81 mg Benzocaine/Menthol (Cepacol Sore Throat) 1 carlos MT Q3H PRN PRN Reason: Sore Throat Last Admin: 04/16/17 22:17 Dose: 1 carlos Benzonatate (Tessalon Perles) 100 mg PO TID [facility] Last Admin: 04/22/17 09:32 Dose: 100 mg Budesonide (Pulmicort Respules) 1 mg IH [id number] [facility] Last Admin: 04/22/17 08:04 Dose: 0.5 mg Capsaicin (Zostrix-Hp) 0 gm TOP Q4H [facility] Last Admin: 04/22/17 10:20 Dose: Not Given Emollient Ointment (Vaseline Oint) 5 gm TOP Q4 [facility] Escitalopram Oxalate (Lexapro) 5 mg PO DAILY [facility] Last Admin: 04/22/17 09:32 Dose: 5 mg Furosemide (Lasix) 20 mg PO DAILY [facility] Last Admin: 04/22/17 09:32 Dose: 20 mg Guaifenesin (Mucinex La) 600 mg PO Q6H [facility] Last Admin: 04/22/17 09:33 Dose: 600 mg Home Med (Home Med) 1 unit PO BID [facility] Last Admin: 04/22/17 09:33 Dose: 1 unit Levalbuterol HCl (Xopenex) 0.63 mg IH [id number] PRN PRN Reason: Shortness of Breath Last Admin: 04/21/17 13:55 Dose: 0.63 mg Lidocaine (Lidoderm) 1 ea TD DAILY [facility] Last Admin: 04/22/17 09:34 Dose: Not Given Loratadine (Claritin) 10 mg PO DAILY [facility] Last Admin: 04/22/17 09:33 Dose: 10 mg Megestrol Acetate (Megace) 400 mg PO DAILY [facility] Last Admin: 04/22/17 09:32 Dose: 400 mg Methylprednisolone (Solu-Medrol) 40 mg IVP Q6 [facility] Last Admin: 04/22/17 05:58 Dose: 40 mg Montelukast Sodium (Singulair) 10 mg PO HS [facility] Last Admin: 04/21/17 23:25 Dose: Not Given Morphine Sulfate (Morphine) 1.5 mg IVP Q3H PRN PRN Reason: Pain, moderate (4-7) Last Admin: 04/22/17 09:30 Dose: 1.5 mg Multivitamins/Minerals (Therapeutic-M Tab) 1 tab PO DAILY [facility] Last Admin: 04/22/17 09:33 Dose: 1 tab Non-Formulary Medication (Quinine Sulfate [Qualaquin]) 324 mg PO DAILY [facility] Last Admin: 04/22/17 09:35 Dose: Not Given Nystatin (Nystatin Oral Susp) 5 ml PO BID [facility] Last Admin: 04/22/17 09:34 Dose: 5 ml Pantoprazole Sodium (Protonix Ec Tab) 40 mg PO 0600 [facility] Last Admin: 04/22/17 05:59 Dose: 40 mg Saliva Substitute (Saliva Substitute) 1 ml PO Q3 [facility] Last Admin: 04/22/17 09:35 Dose: 1 ml Sodium Chloride ([place] Nasal [place]) 0 ml NS Q4 [facility] Sucralfate (Carafate Oral Susp) 1 gm PO 0600,1600 [facility] Last Admin: 04/22/17 05:59 Dose: 1 gm Tamsulosin HCl (Flomax) 0.4 mg PO DAILY [facility] Last Admin: 04/22/17 09:33 Dose: 0.4 mg Tiotropium [place] (Spiriva) 18 mcg IH DAILY [facility] Last Admin: 04/22/17 09:37 Dose: 18 mcg Tramadol/Acetaminophen (Ultracet 37.5/325 Mg) 1 tab PO HS [facility] Last Admin: 04/21/17 23:25 Dose: Not Given - Labs Labs: 04/22/17 08:30 04/22/17 08:00 PT 10.3 SECONDS (9.4-12.5) 04/09/17 17:15 INR 0.91 (0.93-1.08) L 04/09/17 17:15 APTT 28.2 Seconds (25.1-36.5) 04/09/17 17:15 - Constitutional Appears: No Acute Distress, Older Than Stated Age, Cachectic - Head Exam Head Exam: ATRAUMATIC, NORMAL INSPECTION, NORMOCEPHALIC - ENT Exam ENT Exam: Mucous Membranes Dry - Respiratory Exam Respiratory Exam: Decreased Breath Sounds, NORMAL BREATHING PATTERN - Cardiovascular Exam Cardiovascular Exam: Tachycardia, REGULAR RHYTHM, +S1, +S2 - GI/Abdominal Exam GI & Abdominal Exam: Soft, Normal Bowel Sounds. absent: Tenderness - Extremities Exam Extremities Exam: Normal Inspection. 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 Patient has been worsening over the last several days. ID has discontinued antibiotics at this time. Patient continues to use BIPAP at night and using pain medication more frequently. Palliative care will speak to family again and evaluate the patient's wishes for hospice placement. Continue to monitor closely. Prognosis is poor. Plan discussed with Dr. Ferreira. Gianna, PGY-2
[2017-04-22] MEDS ORDERED: Petrolatum Oint Foilpak (5 gm) TOP SCH (12:00)
--- NOTE | 2017-04-22 14:49 | CP.PCM.PN ---
Subjective - Date & Time of Evaluation Date of Evaluation: 04/22/17 Time of Evaluation: 13:00 - Subjective Subjective: Alert, sitting in chair at bedside. Objective - Vital Signs/Intake and Output Vital Signs (last 24 hours): Temp Pulse Resp BP Pulse Ox 98.2 F 102 H 20 131/73 98 04/21/17 18:07 04/22/17 11:15 04/21/17 18:07 04/22/17 09:32 04/21/17 18:07 - Medications Medications: Current Medications Acetaminophen (Tylenol 325mg Tab) 650 mg PO Q4H PRN PRN Reason: Headache Last Admin: 04/20/17 17:28 Dose: 650 mg Acetazolamide (Diamox 250 Mg Tab) 250 mg PO DAILY [facility] Last Admin: 04/22/17 09:32 Dose: 250 mg Acetylcysteine (Acetylcysteine 20%) 4 ml IH [id number] [facility] Last Admin: 04/22/17 08:03 Dose: 4 ml Albuterol Sulfate (Albuterol 0.083% Inhal Rylee (2.5 Mg/3 Ml) Ud) 2.5 mg INH [id number] PRN PRN Reason: Shortness of Breath Last Admin: 04/16/17 08:15 Dose: 2.5 mg Alprazolam (Xanax) 0.25 mg PO Q12 [facility] PRN Reason: Protocol Stop: 04/29/17 21:01 Arformoterol Tartrate (Brovana) 15 mcg IH [id number] [facility] Last Admin: 04/22/17 08:03 Dose: 15 mcg Aspirin (Ecotrin) 81 mg PO DAILY [facility] Last Admin: 04/22/17 09:33 Dose: 81 mg Benzocaine/Menthol (Cepacol Sore Throat) 1 carlos MT Q3H PRN PRN Reason: Sore Throat Last Admin: 04/16/17 22:17 Dose: 1 carlos Benzonatate (Tessalon Perles) 100 mg PO TID [facility] Last Admin: 04/22/17 09:32 Dose: 100 mg Budesonide (Pulmicort Respules) 1 mg IH [id number] [facility] Last Admin: 04/22/17 08:04 Dose: 0.5 mg Capsaicin (Zostrix-Hp) 0 gm TOP Q4H [facility] Last Admin: 04/22/17 13:09 Dose: Not Given Emollient Ointment (Vaseline Oint) 5 gm TOP Q4 [facility] Escitalopram Oxalate (Lexapro) 5 mg PO DAILY [facility] Last Admin: 04/22/17 09:32 Dose: 5 mg Furosemide (Lasix) 20 mg PO DAILY [facility] Last Admin: 04/22/17 09:32 Dose: 20 mg Guaifenesin (Mucinex La) 600 mg PO Q6H [facility] Last Admin: 04/22/17 11:55 Dose: Not Given Home Med (Home Med) 1 unit PO BID [facility] Last Admin: 04/22/17 09:33 Dose: 1 unit Levalbuterol HCl (Xopenex) 0.63 mg IH [id number] PRN PRN Reason: Shortness of Breath Last Admin: 04/21/17 13:55 Dose: 0.63 mg Lidocaine (Lidoderm) 1 ea TD DAILY [facility] Last Admin: 04/22/17 09:34 Dose: Not Given Loratadine (Claritin) 10 mg PO DAILY [facility] Last Admin: 04/22/17 09:33 Dose: 10 mg Megestrol Acetate (Megace) 400 mg PO DAILY [facility] Last Admin: 04/22/17 09:32 Dose: 400 mg Methylprednisolone (Solu-Medrol) 40 mg IVP Q6 [facility] Last Admin: 04/22/17 05:58 Dose: 40 mg Montelukast Sodium (Singulair) 10 mg PO HS [facility] Last Admin: 04/21/17 23:25 Dose: Not Given Morphine Sulfate (Morphine) 1.5 mg IVP Q3H PRN PRN Reason: Pain, moderate (4-7) Last Admin: 04/22/17 09:30 Dose: 1.5 mg Multivitamins/Minerals (Therapeutic-M Tab) 1 tab PO DAILY [facility] Last Admin: 04/22/17 09:33 Dose: 1 tab Non-Formulary Medication (Quinine Sulfate [Qualaquin]) 324 mg PO DAILY [facility] Last Admin: 04/22/17 09:35 Dose: Not Given Nystatin (Nystatin Oral Susp) 5 ml PO BID [facility] Last Admin: 04/22/17 09:34 Dose: 5 ml Pantoprazole Sodium (Protonix Ec Tab) 40 mg PO 0600 [facility] Last Admin: 04/22/17 05:59 Dose: 40 mg Saliva Substitute (Saliva Substitute) 1 ml PO Q3 [facility] Last Admin: 04/22/17 09:35 Dose: 1 ml Sodium Chloride ([place] Nasal [place]) 0 ml NS Q4 [facility] Sucralfate (Carafate Oral Susp) 1 gm PO 0600,1600 [facility] Last Admin: 04/22/17 05:59 Dose: 1 gm Tamsulosin HCl (Flomax) 0.4 mg PO DAILY [facility] Last Admin: 04/22/17 09:33 Dose: 0.4 mg Tiotropium [place] (Spiriva) 18 mcg IH DAILY [facility] Last Admin: 04/22/17 09:37 Dose: 18 mcg Tramadol/Acetaminophen (Ultracet 37.5/325 Mg) 1 tab PO HS [facility] Last Admin: 04/21/17 23:25 Dose: Not Given - Labs Labs: 04/22/17 08:30 04/22/17 08:00 PT 10.3 SECONDS (9.4-12.5) 04/09/17 17:15 INR 0.91 (0.93-1.08) L 04/09/17 17:15 APTT 28.2 Seconds (25.1-36.5) 04/09/17 17:15 - Constitutional Appears: Cachectic, Chronically Ill - Eye Exam Eye Exam: Normal appearance, PERRL - ENT Exam ENT Exam: Mucous Membranes Moist, Normal Oropharynx - Neck Exam Neck Exam: Normal Inspection - Respiratory Exam Respiratory Exam: Decreased Breath Sounds, Wheezes - Cardiovascular Exam Cardiovascular Exam: REGULAR RHYTHM, +S1, +S2 - GI/Abdominal Exam GI & Abdominal Exam: Soft - Extremities Exam Extremities Exam: Normal Capillary Refill - Back Exam Back Exam: NORMAL INSPECTION - Skin Skin Exam: Dry, Pallor, Warm Assessment and Plan - Assessment and Plan (Free Text) Assessment: 71 year old male with history of COPD, Stage IV esophageal cancer who is admitted with RUL cavitary lesion, right lower lobe pneumonia, cachexia, xerostemia,failure to thrive, anxiety,deconditioning. I saw Mr Simms earlier today. He was anxious. BIPAP in use. Not wanting to converse. I returned to patients room later in the day. Patient's at bedside. The patient is more relaxed. Using O2 via cannula. He has also received a dose of Xanax. Lengthy conversation regarding goals of care and hospice ensued. Patient states that when he is anxious, his breathing becomes labored and he fears the worst. It is at these times he feels that he can not "go on". In moments when he is relaxed he admits that he is not ready to withdraw life prolonging interventions. I explained that due to his comorbidities and poor functional status treatment options are limited. I also explained that it is unlikely he would return to prior performance status and that his respiratory issues would be persistent. Patient and state they understand the gravity of his situation. Reinforced that efforts would be made to help to manage symptoms safely. Encouraged to consider impact of illness on his quality of life. Explained that palliative services would continue to follow in order to assist with establishing future goals of care and psychosocial distress. Encouraged to consider behavior modification to help with anxiety management. Psychosocial support given. Time spent with patient and in goals of care discussion minutes Plan: Xanax 0.25mg scheduled dosing twice daily Palliative services will follow to address psychosocial distress and assist in establishing goals of care
[2017-04-22] MEDS ORDERED: Petrolatum Oint Foilpak (5 gm) TOP PRN (16:37)
[2017-04-22] MEDS: Morphine 2 mg/ml ISec IVP PRN ×2 (18:27→21:25)
[2017-04-22] MEDS: TraMADol/Apap 37.5/325 mg Tab PO SCH (21:42)
--- NOTE | 2017-04-22 23:29 | PN ---
DATE: 04/22/2017 PULMONARY PROGRESS NOTE REFERRING PHYSICIAN: Rg Velasco MD. SUBJECTIVE: He is sitting side of the bed, in short of breath, tolerated BiPAP well. Complaining about dry nose. No hemoptysis, no hematochezia, no hematuria. No diarrhea reported. OBJECTIVE: GENERAL: In no acute distress. VITAL SIGNS: Temp is 98, heart rate is 88, respiratory rate is 20, blood pressure 133/65, pulse ox 99% on nasal cannula. HEENT: Dry mucous membrane. Crowded airway. NECK: Supple. No JVD. LUNGS: Have a poor airflow with prolonged expiratory phase with some wheezing. HEART: S1 and S2. ABDOMEN: Soft, nontender. No organomegaly. EXTREMITIES: There is edema. NEUROLOGICAL: Awake and alert. Follows simple command. MEDICATIONS: He is on Mucomyst 20% inhaled q.6 hours, albuterol/Atrovent nebulizer q.6 hours p.r.n., Brovana inhaled twice a day, Carafate 1 g twice a day, Cepacol lozenges q.3 hours p.r.n., Claritin 10 mg daily, Diamox 250 mg daily, Ecotrin 81 mg daily, Flomax 0.4 mg daily, Lasix 20 mg daily, Lexapro 5 mg daily, Lidoderm patch daily, Megace 40 mg daily, morphine 1.5 mg q.6 hours p.r.n., nystatin oral suspension twice a day, Mucinex LA 600 mg q.6 hours, nasal saline to the nose q.4 hours, Protonix 40 mg daily, Pulmicort inhaler twice a day, quinine 324 mg daily, saliva substitute q.3 hours, Singulair 10 mg daily, Solu-Medrol 40 q.6 hours, Spiriva inhaled daily, Tessalon Perles 100 mg three times a day, multivitamins daily, Tylenol p.r.n. basis, Ultracet 37.5/325 one tab at bedtime p.r.n., Vaseline ointment to the affected area q. 4 hours p.r.n., Xopenex 0.63 q.6 hours p.r.n. LABORATORY DATA: Shows hemoglobin 8.4, hematocrit 27.2, WBC 15, platelet is 400. Sodium 140, potassium 4.3, chloride 98, bicarbonate 37, BUN 14, creatinine 0.6, glucose 105, calcium is 9.9. AST 33, ALT 34, alk phos is 58, albumin is 2.5. IMPRESSION AND PLAN: Chronic obstructive lung disease, metastatic esophageal cancer, gastroesophageal reflux disease, right upper lobe cavitary lesion, left upper lobe and right lower lobe pneumonia, hoarseness, anxious, agitated, cor pulmonale. Continue Diamox. Continue Lasix. Continue IV and inhaled bronchodilator, continue nasal saline, antihistamine, leukotriene inhibitors. Gastric prophylaxis. Fall precautions. Continue p.r.n. BiPAP use. VINNIE stocking to the lower extremities. Case discussed with the nursing staff. Thank you very much. We will follow with you. Jesika Srivastava MD
[2017-04-23] MEDS: MethylPREDNISolone 40 mg Vial IVP SCH ×4 (00:34→19:18)
[2017-04-23] MEDS: Morphine 2 mg/ml ISec IVP PRN ×6 (00:40→20:19)
[2017-04-23] MEDS: Acetylcysteine 20% Inhal Soln (4ml) IH SCH ×4 (01:06→20:30)
[2017-04-23] MEDS: Saliva Substitute 44.3 ML PO SCH ×4 (04:37→15:04)
[2017-04-23] MEDS: Arformoterol 15 mcg/2 ml Inh Sol IH SCH ×2 (07:46→20:30)
[2017-04-23] MEDS: Sucralfate 1 gm/10 ml Oral Susp UD PO SCH ×2 (07:59→18:07)
[2017-04-23] MEDS: Pantoprazole 40 mg EC Tab PO SCH (07:59)
[2017-04-23 08:04] LABS: ALBUMIN 2.5 g/dL (3.0-4.8); ALT/SGPT 31 U/L (7-56); AST/SGOT 37 U/L (17-59); BLOOD UREA NITROGEN 16 mg/dL (7-21); CALCIUM 9.7 mg/dL (8.4-10.5); GFR AFRICAN-AMERICAN > 60; GFR NON-AFRICAN AMERICAN > 60
[2017-04-23 08:11] LABS: HEMOGLOBIN 8.8 g/dL (14.0-18.0); MEAN CELL VOLUME 88.4 fl (80.0-105.0); MEAN CORPUSCULAR HEMOGLOBIN 28.3 pg (25.0-35.0); MEAN PLATELET VOLUME 8.7 fl (7.0-11.0); RBC 3.11 10^6/uL (3.5-6.1); RED CELL DISTRIBUTION WIDTH 15.1 % (11.5-14.5); WHITE BLOOD COUNT 21.9 10^3/ul (4.5-11.0)
[2017-04-23] MEDS: QUININE SULFATE 324 MG PO SCH (10:08)
[2017-04-23] MEDS: Tiotropium 18 mcg Cap For Inhalation IH SCH (10:38)
[2017-04-23] MEDS: Multivitamin With Minerals Tab PO SCH (10:43)
[2017-04-23] MEDS: Nystatin 100,000 Units/ml Oral Susp 5 ml UD PO SCH ×2 (10:46→18:07)
[2017-04-23] MEDS: Megestrol Acetate 40 mg/ml Cup PO SCH (10:49)
[2017-04-23] MEDS: AMITIZA 24 MCG PO SCH ×2 (10:50→18:10)
[2017-04-23] MEDS: Lidocaine 5% Patch TD SCH (10:50)
[2017-04-23] MEDS: Capsaicin 0.075% Cream(60 gm) TOP SCH ×4 (10:51→19:21)
[2017-04-23] MEDS: guaiFENesin 600 mg ER Tab PO SCH ×3 (10:52→18:07)
--- NOTE | 2017-04-23 11:31 | CP.PCM.PN ---
Subjective - Date & Time of Evaluation Date of Evaluation: 04/23/17 Time of Evaluation: 11:26 - Subjective Subjective: Patient seen and examined at bedside. Patient with at bedside. Patient still complaining of chest pain and shortness of breath. Patient with Objective - Vital Signs/Intake and Output Vital Signs (last 24 hours): Temp Pulse Resp BP Pulse Ox 98.7 F 125 H 19 151/85 H 90 L 04/23/17 00:05 04/23/17 00:05 04/23/17 00:05 04/23/17 10:39 04/23/17 00:05 Intake and Output: 04/23/17 04/23/17 06:59 18:59 Intake Total 540 Output Total 350 Balance 190 - Medications Medications: Current Medications Acetaminophen (Tylenol 325mg Tab) 650 mg PO Q4H PRN PRN Reason: Headache Last Admin: 04/20/17 17:28 Dose: 650 mg Acetazolamide (Diamox 250 Mg Tab) 250 mg PO DAILY [facility] Last Admin: 04/23/17 10:43 Dose: 250 mg Acetylcysteine (Acetylcysteine 20%) 4 ml IH [id number] [facility] Last Admin: 04/23/17 07:45 Dose: 4 ml Albuterol Sulfate (Albuterol 0.083% Inhal Rylee (2.5 Mg/3 Ml) Ud) 2.5 mg INH [id number] PRN PRN Reason: Shortness of Breath Last Admin: 04/16/17 08:15 Dose: 2.5 mg Alprazolam (Xanax) 0.25 mg PO Q12 [facility] PRN Reason: Protocol Stop: 04/29/17 21:01 Last Admin: 04/23/17 10:43 Dose: 0.25 mg Arformoterol Tartrate (Brovana) 15 mcg IH [id number] [facility] Last Admin: 04/23/17 07:46 Dose: 15 mcg Aspirin (Ecotrin) 81 mg PO DAILY [facility] Last Admin: 04/23/17 10:39 Dose: 81 mg Benzocaine/Menthol (Cepacol Sore Throat) 1 carlos MT Q3H PRN PRN Reason: Sore Throat Last Admin: 04/16/17 22:17 Dose: 1 carlos Benzonatate (Tessalon Perles) 100 mg PO TID [facility] Last Admin: 04/23/17 10:44 Dose: 100 mg Budesonide (Pulmicort Respules) 1 mg IH [id number] [facility] Last Admin: 04/22/17 20:22 Dose: 1 mg Capsaicin (Zostrix-Hp) 0 gm TOP Q4H [facility] Last Admin: 04/23/17 10:51 Dose: 1 applic Emollient Ointment (Vaseline Oint) 5 gm TOP Q4 PRN PRN Reason: Dry skin Escitalopram Oxalate (Lexapro) 5 mg PO DAILY [facility] Last Admin: 04/23/17 10:44 Dose: 5 mg Furosemide (Lasix) 20 mg PO DAILY [facility] Last Admin: 04/23/17 10:39 Dose: 20 mg Guaifenesin (Mucinex La) 600 mg PO Q6H [facility] Last Admin: 04/23/17 10:52 Dose: Not Given Home Med (Home Med) 1 unit PO BID [facility] Last Admin: 04/23/17 10:50 Dose: 1 unit Levalbuterol HCl (Xopenex) 0.63 mg IH [id number] PRN PRN Reason: Shortness of Breath Last Admin: 04/21/17 13:55 Dose: 0.63 mg Lidocaine (Lidoderm) 1 ea TD DAILY [facility] Last Admin: 04/23/17 10:50 Dose: Not Given Loratadine (Claritin) 10 mg PO DAILY [facility] Last Admin: 04/23/17 10:54 Dose: 10 mg Megestrol Acetate (Megace) 400 mg PO DAILY [facility] Last Admin: 04/23/17 10:49 Dose: 400 mg Methylprednisolone (Solu-Medrol) 40 mg IVP Q6 [facility] Last Admin: 04/23/17 07:48 Dose: 40 mg Montelukast Sodium (Singulair) 10 mg PO HS [facility] Last Admin: 04/22/17 21:23 Dose: 10 mg Morphine Sulfate (Morphine) 1.5 mg IVP Q3H PRN PRN Reason: Pain, moderate (4-7) Last Admin: 04/23/17 08:08 Dose: 1.5 mg Multivitamins/Minerals (Therapeutic-M Tab) 1 tab PO DAILY [facility] Last Admin: 04/23/17 10:43 Dose: 1 tab Non-Formulary Medication (Quinine Sulfate [Qualaquin]) 324 mg PO DAILY [facility] Last Admin: 04/22/17 09:35 Dose: Not Given Nystatin (Nystatin Oral Susp) 5 ml PO BID [facility] Last Admin: 04/23/17 10:46 Dose: 5 ml Pantoprazole Sodium (Protonix Ec Tab) 40 mg PO 0600 [facility] Last Admin: 04/23/17 07:59 Dose: 40 mg Saliva Substitute (Saliva Substitute) 1 ml PO Q3 [facility] Last Admin: 04/23/17 10:45 Dose: 1 ml Sodium Chloride ([place] Nasal [place]) 0 ml NS Q4H PRN PRN Reason: Nasal congestion Sucralfate (Carafate Oral Susp) 1 gm PO 0600,1600 [facility] Last Admin: 04/23/17 07:59 Dose: 1 gm Tamsulosin HCl (Flomax) 0.4 mg PO DAILY [facility] Last Admin: 04/23/17 10:44 Dose: 0.4 mg Tiotropium [place] (Spiriva) 18 mcg IH DAILY [facility] Last Admin: 04/23/17 10:38 Dose: 18 mcg Tramadol/Acetaminophen (Ultracet 37.5/325 Mg) 1 tab PO HS [facility] Last Admin: 04/22/17 21:42 Dose: 1 tab - Labs Labs: 04/23/17 07:30 04/23/17 07:20 PT 10.3 SECONDS (9.4-12.5) 04/09/17 17:15 INR 0.91 (0.93-1.08) L 04/09/17 17:15 APTT 28.2 Seconds (25.1-36.5) 04/09/17 17:15 - Constitutional Appears: Non-toxic, No Acute Distress, Cachectic - Head Exam Head Exam: ATRAUMATIC, NORMAL INSPECTION, NORMOCEPHALIC - ENT Exam ENT Exam: Mucous Membranes Dry - Neck Exam Neck Exam: Normal Inspection. absent: Lymphadenopathy - Respiratory Exam Respiratory Exam: Clear to Ausculation Bilateral, NORMAL BREATHING PATTERN - Cardiovascular Exam Cardiovascular Exam: RRR, +S1, +S2 - GI/Abdominal Exam GI & Abdominal Exam: Soft, Normal Bowel Sounds. absent: Tenderness - Extremities Exam Extremities Exam: Normal Inspection. 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 Spoke to patient and at length with palliative care, Dea Palencia. Options explained to patient about different levels of care available to patient. Will revisit topic with patient again tomorrow. ID has discontinued antibiotics at this time. Patient continues to use BIPAP at night. Will add Xanax 0.25 mg tablet q8h prn on top of scheduled dose for anxiety. Continue to monitor closely. Prognosis is poor. Plan discussed with Dr. Ferreira. Gianna, PGY-2
--- NOTE | 2017-04-23 11:59 | CP.PCM.PN ---
Subjective - Date & Time of Evaluation Date of Evaluation: 04/23/17 Time of Evaluation: 11:00 - Subjective Subjective: Alert,sitting up in chair. Has right sided chest wall pain. Objective - Vital Signs/Intake and Output Vital Signs (last 24 hours): Temp Pulse Resp BP Pulse Ox 98.7 F 125 H 19 151/85 H 90 L 04/23/17 00:05 04/23/17 00:05 04/23/17 00:05 04/23/17 10:39 04/23/17 00:05 Intake and Output: 04/23/17 04/23/17 06:59 18:59 Intake Total 540 Output Total 350 Balance 190 - Medications Medications: Current Medications Acetaminophen (Tylenol 325mg Tab) 650 mg PO Q4H PRN PRN Reason: Headache Last Admin: 04/20/17 17:28 Dose: 650 mg Acetazolamide (Diamox 250 Mg Tab) 250 mg PO DAILY [facility] Last Admin: 04/23/17 10:43 Dose: 250 mg Acetylcysteine (Acetylcysteine 20%) 4 ml IH [id number] [facility] Last Admin: 04/23/17 07:45 Dose: 4 ml Albuterol Sulfate (Albuterol 0.083% Inhal Rylee (2.5 Mg/3 Ml) Ud) 2.5 mg INH [id number] PRN PRN Reason: Shortness of Breath Last Admin: 04/16/17 08:15 Dose: 2.5 mg Alprazolam (Xanax) 0.25 mg PO Q12 [facility] PRN Reason: Protocol Stop: 04/29/17 21:01 Last Admin: 04/23/17 10:43 Dose: 0.25 mg Alprazolam (Xanax) 0.25 mg PO Q8H PRN; Protocol PRN Reason: Anxiety Stop: 04/30/17 11:31 Arformoterol Tartrate (Brovana) 15 mcg IH [id number] [facility] Last Admin: 04/23/17 07:46 Dose: 15 mcg Aspirin (Ecotrin) 81 mg PO DAILY [facility] Last Admin: 04/23/17 10:39 Dose: 81 mg Benzocaine/Menthol (Cepacol Sore Throat) 1 carlos MT Q3H PRN PRN Reason: Sore Throat Last Admin: 04/16/17 22:17 Dose: 1 carlos Benzonatate (Tessalon Perles) 100 mg PO TID [facility] Last Admin: 04/23/17 10:44 Dose: 100 mg Budesonide (Pulmicort Respules) 1 mg IH [id number] [facility] Last Admin: 04/22/17 20:22 Dose: 1 mg Capsaicin (Zostrix-Hp) 0 gm TOP Q4H [facility] Last Admin: 04/23/17 10:51 Dose: 1 applic Emollient Ointment (Vaseline Oint) 5 gm TOP Q4 PRN PRN Reason: Dry skin Escitalopram Oxalate (Lexapro) 5 mg PO DAILY [facility] Last Admin: 04/23/17 10:44 Dose: 5 mg Furosemide (Lasix) 20 mg PO DAILY [facility] Last Admin: 04/23/17 10:39 Dose: 20 mg Guaifenesin (Mucinex La) 600 mg PO Q6H [facility] Last Admin: 04/23/17 10:52 Dose: Not Given Home Med (Home Med) 1 unit PO BID [facility] Last Admin: 04/23/17 10:50 Dose: 1 unit Levalbuterol HCl (Xopenex) 0.63 mg IH [id number] PRN PRN Reason: Shortness of Breath Last Admin: 04/21/17 13:55 Dose: 0.63 mg Loratadine (Claritin) 10 mg PO DAILY [facility] Last Admin: 04/23/17 10:54 Dose: 10 mg Megestrol Acetate (Megace) 400 mg PO DAILY [facility] Last Admin: 04/23/17 10:49 Dose: 400 mg Methylprednisolone (Solu-Medrol) 40 mg IVP Q6 [facility] Last Admin: 04/23/17 07:48 Dose: 40 mg Montelukast Sodium (Singulair) 10 mg PO HS [facility] Last Admin: 04/22/17 21:23 Dose: 10 mg Morphine Sulfate (Morphine) 1.5 mg IVP Q3H PRN PRN Reason: Pain, moderate (4-7) Last Admin: 04/23/17 11:24 Dose: 1.5 mg Multivitamins/Minerals (Therapeutic-M Tab) 1 tab PO DAILY [facility] Last Admin: 04/23/17 10:43 Dose: 1 tab Non-Formulary Medication (Quinine Sulfate [Qualaquin]) 324 mg PO DAILY [facility] Last Admin: 04/22/17 09:35 Dose: Not Given Nystatin (Nystatin Oral Susp) 5 ml PO BID [facility] Last Admin: 04/23/17 10:46 Dose: 5 ml Pantoprazole Sodium (Protonix Ec Tab) 40 mg PO 0600 [facility] Last Admin: 04/23/17 07:59 Dose: 40 mg Saliva Substitute (Saliva Substitute) 1 ml PO Q3 [facility] Last Admin: 04/23/17 10:45 Dose: 1 ml Sodium Chloride ([place] Nasal [place]) 0 ml NS Q4H PRN PRN Reason: Nasal congestion Sucralfate (Carafate Oral Susp) 1 gm PO 0600,1600 [facility] Last Admin: 04/23/17 07:59 Dose: 1 gm Tamsulosin HCl (Flomax) 0.4 mg PO DAILY [facility] Last Admin: 04/23/17 10:44 Dose: 0.4 mg Tiotropium [place] (Spiriva) 18 mcg IH DAILY [facility] Last Admin: 04/23/17 10:38 Dose: 18 mcg Tramadol/Acetaminophen (Ultracet 37.5/325 Mg) 1 tab PO HS [facility] Last Admin: 04/22/17 21:42 Dose: 1 tab - Labs Labs: 04/23/17 07:30 04/23/17 07:20 PT 10.3 SECONDS (9.4-12.5) 04/09/17 17:15 INR 0.91 (0.93-1.08) L 04/09/17 17:15 APTT 28.2 Seconds (25.1-36.5) 04/09/17 17:15 - Constitutional Appears: Cachectic, Chronically Ill - Eye Exam Eye Exam: Normal appearance, PERRL - ENT Exam ENT Exam: Mucous Membranes Moist - Respiratory Exam Respiratory Exam: Decreased Breath Sounds, Wheezes - Cardiovascular Exam Cardiovascular Exam: REGULAR RHYTHM, +S1, +S2 - GI/Abdominal Exam GI & Abdominal Exam: Soft, Normal Bowel Sounds - Extremities Exam Extremities Exam: Normal Inspection - Neurological Exam Neurological Exam: Alert - Skin Skin Exam: Dry, Warm Assessment and Plan - Assessment and Plan (Free Text) Assessment: 71 year old male with history of COPD, Stage IV esophageal cancer who is admitted with cachexia, pain, dyspnea, pneumonia, RUL cavitary lesion, sepsis. The patient states that he has chest wall pain. States that Capsaicin cream helps. He takes Morphine when offered but not consistent with requesting medication. He states that Morphine has been helping with dyspnea as well as with pain control. Dr. Katz and I met with patient and . Revisited previous conversation regarding goals of care and hospice services. The patient admits that he is uncomfortable most of the time and that he does not want to continue this way. He is slowly accepting that he is nearing end of life. Encouraged to consider quality of life and the opportunity to spend time at home with his family. Reassured that symptom management would be priority. Questions and concerns answered. Psychosocial support given. Time spent with patient and family in goals of care discussion, 30 minutes Plan: Pain/dyspnea:would add Morphine Sulphate ER 10 mg po twice daily. Psychosocial support.
[2017-04-23] MEDS: Levalbuterol 0.63 MG/3 ML Inhal Soln UD IH PRN (13:15)
[2017-04-23] MEDS: Budesonide 0.5 mg/2 ml Inhal Susp UD IH SCH (20:30)
[2017-04-23] MEDS: TraMADol/Apap 37.5/325 mg Tab PO SCH (21:17)
[2017-04-24] MEDS: Saliva Substitute 44.3 ML PO SCH ×3 (00:05→10:59)
[2017-04-24] MEDS: Capsaicin 0.075% Cream(60 gm) TOP SCH ×2 (00:05→11:02)
--- NOTE | 2017-04-24 01:00 | PN ---
DATE: 04/23/2017 REFERRING PHYSICIAN: Rg Velasco MD. SUBJECTIVE: The patient is lying in the bed, lethargic, sleepy, arousable. is at bedside. He is not feeling well from the last 24 hours. Did not use BiPAP last night, still has a cough, some sputum production. No hemoptysis. No hematochezia, no hematuria. No diarrhea. Does have some leg swelling. OBJECTIVE: GENERAL: In no acute distress. VITAL SIGNS: Temp is 98, heart rate is 111, respiratory rate is 20, blood pressure 135/66, pulse ox 96% on 4 liter nasal cannula. HEENT: Moist mucous membrane. Crowded airway. NECK: Supple. No JVD. LUNGS: Have prolonged expiratory phase with some wheezing. HEART: S1 and S2. ABDOMEN: Soft, nontender. No organomegaly. EXTREMITIES: Does have edema. NEUROLOGICAL: Awake and alert. Does follow simple command, but lethargic. MEDICATIONS: He is on Mucomyst 20% inhaled q. 6 hour, albuterol/Atrovent nebulizer q. 6 hour, Brovana inhaled twice a day, Carafate 1 g twice a day, Cepacol lozenges q. 3 hour p.r.n., Claritin 10 mg daily, Diamox 250 mg daily, Ecotrin 81 mg daily, Flomax 0.4 mg daily, Lasix 20 mg daily, Lexapro 5 mg daily, Megace mg daily, morphine 1.5 mg IV q. 3 hours p.r.n., Mucinex LA 600 mg q. 6 hour, nasal saline one spray to each nostrils q. 4 hour p.r.n., Protonix 40 mg daily, Pulmicort inhaler twice a day, quinine sulfate 324 mg daily, Singulair 10 mg daily, Solu-Medrol 40 mg q. 6 hour, Spiriva capsule inhale daily, Tessalon Perles 100 mg 3 times a day, multivitamins daily, Tylenol p.r.n. basis, Ultracet 37.5/325 one tab at bedtime p.r.n., Vaseline ointment to the affected area q. 4 hour, Xanax 0.25 mg q. 12 hour, Xanax also is 0.2 mg at bedtime p.r.n., Xopenex inhale q. 6 hour. LABORATORY DATA: Shows hemoglobin 8.8, hematocrit 27.5, WBC 21.9, platelet is 404. Sodium 140, potassium 3.7, chloride 99, bicarbonate 35, BUN 16, creatinine 0.6, glucose 105, calcium is 9.7. AST 37, ALT 31, alk phos is 59, albumin is 2.5. Microbiology, blood culture, urine culture have been negative. IMPRESSION AND PLAN: Chronic obstructive lung disease, metastatic esophageal cancer, gastroesophageal reflux disease, right upper lobe cavitary lesion, left upper lobe pneumonia, right lower lobe pneumonia, hoarseness, anxious, agitated, cor pulmonale. I spoke to the patient's in detail. All the questions answered. Also, I spoke to Dr. Ferreira. We will discontinue Diamox, increase Lasix. Suggested to place him on BiPAP for overnight. Continue steroids, continue antibiotics. Gastric prophylaxis, VINNIE stockings. Overall, poor prognosis. Thank you and we will follow with you. Jesika Srivastava MD
[2017-04-24] MEDS: Acetylcysteine 20% Inhal Soln (4ml) IH SCH ×2 (01:16→07:41)
[2017-04-24] MEDS: Morphine 2 mg/ml ISec IVP PRN (02:44)
[2017-04-24 04:43] VITALS: O2SAT 94
[2017-04-24] MEDS: guaiFENesin 600 mg ER Tab PO SCH ×3 (04:50→11:01)
[2017-04-24] MEDS ORDERED: Morphine 4 mg/ml ISec IVP PRN (06:15)
[2017-04-24] MEDS: Pantoprazole 40 mg EC Tab PO SCH (06:20)
[2017-04-24] MEDS: MethylPREDNISolone 40 mg Vial IVP SCH ×3 (06:20→11:30)
[2017-04-24] MEDS: Budesonide 0.5 mg/2 ml Inhal Susp UD IH SCH (07:41)
[2017-04-24] MEDS: Arformoterol 15 mcg/2 ml Inh Sol IH SCH (07:41)
[2017-04-24] MEDS: Sucralfate 1 gm/10 ml Oral Susp UD PO SCH (07:43)
[2017-04-24 07:44] LABS: HEMOGLOBIN 8.7 g/dL (14.0-18.0); MEAN CELL VOLUME 88.7 fl (80.0-105.0); MEAN CORPUSCULAR HEMOGLOBIN 28.1 pg (25.0-35.0); MEAN CORPUSCULAR HGB CONC 31.6 g/dl (31.0-37.0); MEAN PLATELET VOLUME 8.9 fl (7.0-11.0); RBC 3.1 10^6/uL (3.5-6.1); RED CELL DISTRIBUTION WIDTH 15.1 % (11.5-14.5); WHITE BLOOD COUNT 22.1 10^3/ul (4.5-11.0)
[2017-04-24 07:45] VITALS: PULSE 86
[2017-04-24 07:51] LABS: ALBUMIN 2.6 g/dL (3.0-4.8); ALT/SGPT 31 U/L (7-56); AST/SGOT 34 U/L (17-59); BLOOD UREA NITROGEN 17 mg/dL (7-21); CALCIUM 9.9 mg/dL (8.4-10.5); GFR AFRICAN-AMERICAN > 60; GFR NON-AFRICAN AMERICAN > 60
[2017-04-24 08:41] VITALS: BP 148/77; TEMP 98.6
[2017-04-24] MEDS ORDERED: POLYETHYLENE GLYCOL 3350 17 GM/Dose PACKET PO SCH (10:00)
[2017-04-24] MEDS ORDERED: Morphine 15 mg SR Tab PO SCH (10:00)
[2017-04-24] MEDS ORDERED: Morphine 2 mg/ml ISec IVP STA (10:36)
[2017-04-24] MEDS: Megestrol Acetate 40 mg/ml Cup PO SCH (10:52)
[2017-04-24] MEDS: Nystatin 100,000 Units/ml Oral Susp 5 ml UD PO SCH (10:52)
[2017-04-24] MEDS: AMITIZA 24 MCG PO SCH (10:53)
[2017-04-24] MEDS: Tiotropium 18 mcg Cap For Inhalation IH SCH (10:56)
[2017-04-24] MEDS: QUININE SULFATE 324 MG PO SCH (10:59)
[2017-04-24] MEDS: Multivitamin With Minerals Tab PO SCH (11:00)
--- NOTE | 2017-04-24 11:12 | CP.PCM.PN ---
Subjective - Date & Time of Evaluation Date of Evaluation: 04/24/17 Time of Evaluation: 11:07 - Subjective Subjective: Patient seen and examined at bedside. Patient is accompanied by his . Patient resting with BIPAP. Pain is mildly controlled with medication. Denies nausea, vomiting, diarrhea, fever, chills. Objective - Vital Signs/Intake and Output Vital Signs (last 24 hours): Temp Pulse Resp BP Pulse Ox 98.6 F 86 20 148/77 94 L 04/24/17 07:00 04/24/17 07:44 04/24/17 07:00 04/24/17 07:00 04/24/17 07:00 Intake and Output: 04/24/17 04/24/17 06:59 18:59 Intake Total 480 Balance 480 - Medications Medications: Current Medications Acetaminophen (Tylenol 325mg Tab) 650 mg PO Q4H PRN PRN Reason: Headache Last Admin: 04/20/17 17:28 Dose: 650 mg Acetylcysteine (Acetylcysteine 20%) 4 ml IH [id number] [facility] Last Admin: 04/24/17 07:41 Dose: 4 ml Albuterol Sulfate (Albuterol 0.083% Inhal Rylee (2.5 Mg/3 Ml) Ud) 2.5 mg INH [id number] PRN PRN Reason: Shortness of Breath Last Admin: 04/16/17 08:15 Dose: 2.5 mg Alprazolam (Xanax) 0.25 mg PO Q12 [facility] PRN Reason: Protocol Stop: 04/29/17 21:01 Last Admin: 04/24/17 10:54 Dose: 0.25 mg Alprazolam (Xanax) 0.25 mg PO Q8H PRN; Protocol PRN Reason: Anxiety Stop: 04/30/17 11:31 Arformoterol Tartrate (Brovana) 15 mcg IH [id number] [facility] Last Admin: 04/24/17 07:41 Dose: 15 mcg Aspirin (Ecotrin) 81 mg PO DAILY [facility] Last Admin: 04/24/17 10:53 Dose: 81 mg Benzocaine/Menthol (Cepacol Sore Throat) 1 carlos MT Q3H PRN PRN Reason: Sore Throat Last Admin: 04/16/17 22:17 Dose: 1 carols Benzonatate (Tessalon Perles) 100 mg PO TID [facility] Last Admin: 04/24/17 11:01 Dose: Not Given Budesonide (Pulmicort Respules) 1 mg IH [id number] [facility] Last Admin: 04/24/17 07:41 Dose: 1 mg Capsaicin (Zostrix-Hp) 0 gm TOP Q4H [facility] Last Admin: 04/24/17 11:02 Dose: 1 applic Emollient Ointment (Vaseline Oint) 5 gm TOP Q4 PRN PRN Reason: Dry skin Escitalopram Oxalate (Lexapro) 5 mg PO DAILY [facility] Last Admin: 04/24/17 10:56 Dose: 5 mg Furosemide (Lasix) 20 mg PO 12 [facility] Guaifenesin (Mucinex La) 600 mg PO Q6H [facility] Last Admin: 04/24/17 11:01 Dose: Not Given Home Med (Home Med) 1 unit PO BID [facility] Last Admin: 04/24/17 10:53 Dose: 1 unit Levalbuterol HCl (Xopenex) 0.63 mg IH [id number] PRN PRN Reason: Shortness of Breath Last Admin: 04/23/17 13:15 Dose: 0.63 mg Loratadine (Claritin) 10 mg PO DAILY [facility] Last Admin: 04/24/17 10:55 Dose: 10 mg Megestrol Acetate (Megace) 400 mg PO DAILY [facility] Last Admin: 04/24/17 10:52 Dose: 400 mg Methylprednisolone (Solu-Medrol) 40 mg IVP Q6 [facility] Last Admin: 04/24/17 06:20 Dose: 40 mg Montelukast Sodium (Singulair) 10 mg PO HS [facility] Last Admin: 04/23/17 21:15 Dose: 10 mg Morphine Sulfate (Morphine) 1.5 mg IVP Q3H PRN PRN Reason: Pain, moderate (4-7) Last Admin: 04/24/17 06:26 Dose: 1.5 mg Morphine Sulfate (Morphine Extended Release Tab) 15 mg PO Q12 [facility] Last Admin: 04/24/17 10:55 Dose: 15 mg Multivitamins/Minerals (Therapeutic-M Tab) 1 tab PO DAILY [facility] Last Admin: 04/23/17 10:43 Dose: 1 tab Non-Formulary Medication (Quinine Sulfate [Qualaquin]) 324 mg PO DAILY [facility] Last Admin: 04/24/17 10:59 Dose: Not Given Nystatin (Nystatin Oral Susp) 5 ml PO BID [facility] Last Admin: 04/24/17 10:52 Dose: 5 ml Pantoprazole Sodium (Protonix Ec Tab) 40 mg PO 0600 [facility] Last Admin: 04/24/17 06:20 Dose: 40 mg Polyethylene Glycol (Miralax) 17 gm PO DAILY [facility] Last Admin: 04/24/17 10:52 Dose: Not Given Saliva Substitute (Saliva Substitute) 1 ml PO Q3 [facility] Last Admin: 04/24/17 10:59 Dose: 1 ml Sodium Chloride ([place] Nasal [place]) 0 ml NS Q4H PRN PRN Reason: Nasal congestion Last Admin: 04/24/17 10:57 Dose: 1 applic Sucralfate (Carafate Oral Susp) 1 gm PO 0600,1600 [facility] Last Admin: 04/24/17 07:43 Dose: 1 gm Tamsulosin HCl (Flomax) 0.4 mg PO DAILY [facility] Last Admin: 04/24/17 10:53 Dose: 0.4 mg Tiotropium [place] (Spiriva) 18 mcg IH DAILY [facility] Last Admin: 04/24/17 10:56 Dose: 18 mcg Tramadol/Acetaminophen (Ultracet 37.5/325 Mg) 1 tab PO HS [facility] Last Admin: 04/23/17 21:17 Dose: 1 tab - Labs Labs: 04/24/17 07:20 04/24/17 07:20 PT 10.3 SECONDS (9.4-12.5) 04/09/17 17:15 INR 0.91 (0.93-1.08) L 04/09/17 17:15 APTT 28.2 Seconds (25.1-36.5) 04/09/17 17:15 - Constitutional Appears: Non-toxic, No Acute Distress - Head Exam Head Exam: ATRAUMATIC, NORMAL INSPECTION, NORMOCEPHALIC - ENT Exam ENT Exam: Mucous Membranes Dry - Respiratory Exam Respiratory Exam: Decreased Breath Sounds, NORMAL BREATHING PATTERN. absent: Rales, Rhonchi, Wheezes - Cardiovascular Exam Cardiovascular Exam: Tachycardia, REGULAR RHYTHM, +S1, +S2 - GI/Abdominal Exam GI & Abdominal Exam: Soft, Normal Bowel Sounds. absent: Tenderness - Extremities Exam Extremities Exam: Normal Inspection. 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 After further discussion between family members. Patient has elected to pursue hospice care. Will continue medications and BIPAP. Will also arrange for hospice care with family. We will continue to monitor patient closely and provide care to the patient at this time. Plan discussed with Dr. Ferreira. Gianna, PGY-2
--- NOTE | 2017-04-24 11:19 | CP.PCM.PN ---
Subjective - Date & Time of Evaluation Date of Evaluation: 04/24/17 Time of Evaluation: 11:00 - Subjective Subjective: Tachypneic, accessory muscle use,tachycardic Objective - Vital Signs/Intake and Output Vital Signs (last 24 hours): Temp Pulse Resp BP Pulse Ox 98.6 F 86 20 148/77 94 L 04/24/17 07:00 04/24/17 07:44 04/24/17 07:00 04/24/17 07:00 04/24/17 07:00 Intake and Output: 04/24/17 04/24/17 06:59 18:59 Intake Total 480 Balance 480 - Medications Medications: Current Medications Acetaminophen (Tylenol 325mg Tab) 650 mg PO Q4H PRN PRN Reason: Headache Last Admin: 04/20/17 17:28 Dose: 650 mg Acetylcysteine (Acetylcysteine 20%) 4 ml IH [id number] [facility] Last Admin: 04/24/17 07:41 Dose: 4 ml Albuterol Sulfate (Albuterol 0.083% Inhal Rylee (2.5 Mg/3 Ml) Ud) 2.5 mg INH [id number] PRN PRN Reason: Shortness of Breath Last Admin: 04/16/17 08:15 Dose: 2.5 mg Alprazolam (Xanax) 0.25 mg PO Q12 [facility] PRN Reason: Protocol Stop: 04/29/17 21:01 Last Admin: 04/24/17 10:54 Dose: 0.25 mg Alprazolam (Xanax) 0.25 mg PO Q8H PRN; Protocol PRN Reason: Anxiety Stop: 04/30/17 11:31 Arformoterol Tartrate (Brovana) 15 mcg IH [id number] [facility] Last Admin: 04/24/17 07:41 Dose: 15 mcg Aspirin (Ecotrin) 81 mg PO DAILY [facility] Last Admin: 04/24/17 10:53 Dose: 81 mg Benzocaine/Menthol (Cepacol Sore Throat) 1 carlos MT Q3H PRN PRN Reason: Sore Throat Last Admin: 04/16/17 22:17 Dose: 1 carlos Benzonatate (Tessalon Perles) 100 mg PO TID [facility] Last Admin: 04/24/17 11:01 Dose: Not Given Budesonide (Pulmicort Respules) 1 mg IH [id number] [facility] Last Admin: 04/24/17 07:41 Dose: 1 mg Capsaicin (Zostrix-Hp) 0 gm TOP Q4H [facility] Last Admin: 04/24/17 11:02 Dose: 1 applic Emollient Ointment (Vaseline Oint) 5 gm TOP Q4 PRN PRN Reason: Dry skin Escitalopram Oxalate (Lexapro) 5 mg PO DAILY [facility] Last Admin: 04/24/17 10:56 Dose: 5 mg Furosemide (Lasix) 20 mg PO 12 [facility] Guaifenesin (Mucinex La) 600 mg PO Q6H [facility] Last Admin: 04/24/17 11:01 Dose: Not Given Home Med (Home Med) 1 unit PO BID [facility] Last Admin: 04/24/17 10:53 Dose: 1 unit Levalbuterol HCl (Xopenex) 0.63 mg IH [id number] PRN PRN Reason: Shortness of Breath Last Admin: 04/23/17 13:15 Dose: 0.63 mg Loratadine (Claritin) 10 mg PO DAILY [facility] Last Admin: 04/24/17 10:55 Dose: 10 mg Megestrol Acetate (Megace) 400 mg PO DAILY [facility] Last Admin: 04/24/17 10:52 Dose: 400 mg Methylprednisolone (Solu-Medrol) 40 mg IVP Q6 [facility] Last Admin: 04/24/17 06:20 Dose: 40 mg Montelukast Sodium (Singulair) 10 mg PO HS [facility] Last Admin: 04/23/17 21:15 Dose: 10 mg Morphine Sulfate (Morphine) 1.5 mg IVP Q3H PRN PRN Reason: Pain, moderate (4-7) Last Admin: 04/24/17 06:26 Dose: 1.5 mg Morphine Sulfate (Morphine Extended Release Tab) 15 mg PO Q12 [facility] Last Admin: 04/24/17 10:55 Dose: 15 mg Multivitamins/Minerals (Therapeutic-M Tab) 1 tab PO DAILY [facility] Last Admin: 04/23/17 10:43 Dose: 1 tab Non-Formulary Medication (Quinine Sulfate [Qualaquin]) 324 mg PO DAILY [facility] Last Admin: 04/24/17 10:59 Dose: Not Given Nystatin (Nystatin Oral Susp) 5 ml PO BID [facility] Last Admin: 04/24/17 10:52 Dose: 5 ml Pantoprazole Sodium (Protonix Ec Tab) 40 mg PO 0600 [facility] Last Admin: 04/24/17 06:20 Dose: 40 mg Polyethylene Glycol (Miralax) 17 gm PO DAILY [facility] Last Admin: 04/24/17 10:52 Dose: Not Given Saliva Substitute (Saliva Substitute) 1 ml PO Q3 [facility] Last Admin: 04/24/17 10:59 Dose: 1 ml Sodium Chloride ([place] Nasal [place]) 0 ml NS Q4H PRN PRN Reason: Nasal congestion Last Admin: 04/24/17 10:57 Dose: 1 applic Sucralfate (Carafate Oral Susp) 1 gm PO 0600,1600 [facility] Last Admin: 04/24/17 07:43 Dose: 1 gm Tamsulosin HCl (Flomax) 0.4 mg PO DAILY [facility] Last Admin: 04/24/17 10:53 Dose: 0.4 mg Tiotropium [place] (Spiriva) 18 mcg IH DAILY [facility] Last Admin: 04/24/17 10:56 Dose: 18 mcg Tramadol/Acetaminophen (Ultracet 37.5/325 Mg) 1 tab PO HS [facility] Last Admin: 04/23/17 21:17 Dose: 1 tab - Labs Labs: 04/24/17 07:20 04/24/17 07:20 PT 10.3 SECONDS (9.4-12.5) 04/09/17 17:15 INR 0.91 (0.93-1.08) L 04/09/17 17:15 APTT 28.2 Seconds (25.1-36.5) 04/09/17 17:15 - Constitutional Appears: Cachectic, Chronically Ill - Head Exam Head Exam: NORMAL INSPECTION - Eye Exam Eye Exam: Normal appearance, PERRL - ENT Exam ENT Exam: Mucous Membranes Moist - Respiratory Exam Respiratory Exam: Accessory Muscle Use, Chest Wall Tenderness, Decreased Breath Sounds, Wheezes - Cardiovascular Exam Cardiovascular Exam: Tachycardia - GI/Abdominal Exam GI & Abdominal Exam: Soft, Normal Bowel Sounds - Back Exam Back Exam: NORMAL INSPECTION - Neurological Exam Neurological Exam: Alert - Psychiatric Exam Psychiatric exam: Anxious - Skin Skin Exam: Dry, Pallor Assessment and Plan - Assessment and Plan (Free Text) Assessment: 71 [place] old male with history of COPD, metastatic esophageal cancer who is admitted with sepsis, pneumonia, right cavitary lesion, intractable pain, respiratory distress,cachexia and weakness. The patient and have decided to transition to hospice services. [facility] are [facility] this morning. The patient is accepted to [facility] hospice services for pain and symptom management. Consent signed by patient. Time spent with patient and family in hospice and end of life discussion, 30 minutes Plan: Hospice evaluation for [facility] services Discharge and readmit to [facility] End of life counseling
[2017-04-24 11:40] VITALS: RESP 30
--- NOTE | 2017-04-24 12:46 | CP.PCM.PN ---
Subjective - Date & Time of Evaluation Date of Evaluation: 04/22/17 Time of Evaluation: 12:20 - Subjective Subjective: Still with cough, dyspnea on exertion , no fevers. Objective - Vital Signs/Intake and Output Vital Signs (last 24 hours): Temp Pulse Resp BP Pulse Ox 98.2 F 100 H 20 137/72 98 04/21/17 18:07 04/21/17 18:07 04/21/17 18:07 04/21/17 18:07 04/21/17 18:07 - Medications Medications: Current Medications Acetaminophen (Tylenol 325mg Tab) 650 mg PO Q4H PRN PRN Reason: Headache Last Admin: 04/20/17 17:28 Dose: 650 mg Acetazolamide (Diamox 250 Mg Tab) 250 mg PO DAILY [facility] Last Admin: 04/21/17 10:47 Dose: 250 mg Acetylcysteine (Acetylcysteine 20%) 4 ml IH [id number] [facility] Last Admin: 04/22/17 08:03 Dose: 4 ml Albuterol Sulfate (Albuterol 0.083% Inhal Rylee (2.5 Mg/3 Ml) Ud) 2.5 mg INH [id number] PRN PRN Reason: Shortness of Breath Last Admin: 04/16/17 08:15 Dose: 2.5 mg Arformoterol Tartrate (Brovana) 15 mcg IH [id number] [facility] Last Admin: 04/22/17 08:03 Dose: 15 mcg Aspirin (Ecotrin) 81 mg PO DAILY [facility] Last Admin: 04/21/17 10:47 Dose: 81 mg Benzocaine/Menthol (Cepacol Sore Throat) 1 carlos MT Q3H PRN PRN Reason: Sore Throat Last Admin: 04/16/17 22:17 Dose: 1 carlos Benzonatate (Tessalon Perles) 100 mg PO TID [facility] Last Admin: 04/21/17 19:09 Dose: 100 mg Budesonide (Pulmicort Respules) 1 mg IH [id number] [facility] Last Admin: 04/22/17 08:04 Dose: 0.5 mg Capsaicin (Zostrix-Hp) 0 gm TOP Q4H [facility] Last Admin: 04/22/17 03:01 Dose: Not Given Escitalopram Oxalate (Lexapro) 5 mg PO DAILY [facility] Last Admin: 04/21/17 10:47 Dose: 5 mg Furosemide (Lasix) 20 mg PO DAILY [facility] Guaifenesin (Mucinex La) 600 mg PO Q6H [facility] Last Admin: 04/22/17 06:02 Dose: Not Given Home Med (Home Med) 1 unit PO BID [facility] Last Admin: 04/21/17 19:11 Dose: 1 unit Levalbuterol HCl (Xopenex) 0.63 mg IH [id number] PRN PRN Reason: Shortness of Breath Last Admin: 04/21/17 13:55 Dose: 0.63 mg Lidocaine (Lidoderm) 1 ea TD DAILY [facility] Last Admin: 04/21/17 10:50 Dose: Not Given Loratadine (Claritin) 10 mg PO DAILY [facility] Last Admin: 04/21/17 10:47 Dose: 10 mg Megestrol Acetate (Megace) 400 mg PO DAILY [facility] Last Admin: 04/21/17 10:46 Dose: 400 mg Methylprednisolone (Solu-Medrol) 40 mg IVP Q6 [facility] Last Admin: 04/22/17 05:58 Dose: 40 mg Montelukast Sodium (Singulair) 10 mg PO HS [facility] Last Admin: 04/21/17 23:25 Dose: Not Given Morphine Sulfate (Morphine) 1.5 mg IVP Q3H PRN PRN Reason: Pain, moderate (4-7) Last Admin: 04/22/17 06:02 Dose: 1.5 mg Multivitamins/Minerals (Therapeutic-M Tab) 1 tab PO DAILY [facility] Last Admin: 04/21/17 10:47 Dose: 1 tab Non-Formulary Medication (Quinine Sulfate [Qualaquin]) 324 mg PO DAILY [facility] Last Admin: 04/21/17 10:48 Dose: Not Given Nystatin (Nystatin Oral Susp) 5 ml PO BID [facility] Last Admin: 04/21/17 19:08 Dose: 5 ml Pantoprazole Sodium (Protonix Ec Tab) 40 mg PO 0600 [facility] Last Admin: 04/22/17 05:59 Dose: 40 mg Saliva Substitute (Saliva Substitute) 1 ml PO Q3 [facility] Last Admin: 04/22/17 06:01 Dose: 1 ml Sucralfate (Carafate Oral Susp) 1 gm PO 0600,1600 [facility] Last Admin: 04/22/17 05:59 Dose: 1 gm Tamsulosin HCl (Flomax) 0.4 mg PO DAILY [facility] Last Admin: 04/21/17 10:46 Dose: 0.4 mg Tiotropium [place] (Spiriva) 18 mcg IH DAILY [facility] Last Admin: 04/21/17 10:47 Dose: 18 mcg Tramadol/Acetaminophen (Ultracet 37.5/325 Mg) 1 tab PO HS [facility] Last Admin: 04/21/17 23:25 Dose: Not Given - Labs Labs: 04/22/17 08:30 04/22/17 08:00 PT 10.3 SECONDS (9.4-12.5) 04/09/17 17:15 INR 0.91 (0.93-1.08) L 04/09/17 17:15 APTT 28.2 Seconds (25.1-36.5) 04/09/17 17:15 - Constitutional Appears: Cachectic, Chronically Ill - Head Exam Head Exam: NORMAL INSPECTION - Respiratory Exam Respiratory Exam: Decreased Breath Sounds - Cardiovascular Exam Cardiovascular Exam: +S1, +S2 - GI/Abdominal Exam GI & Abdominal Exam: Soft. absent: Tenderness Assessment and Plan - Assessment and Plan (Free Text) Plan: Assessment S/P severe sepsis due to HCAP history of severe sepsis with respiratory failure from lung cavitary lesion in the right upper lobe - lung pyogenic abscess with Pseudomonas - no evidence of TB; S/P treatment with 6 weeks of antibiotics in 2017 - most recent CT showing just residual bulla end-stage COPD with history of heavy smoking esophageal cancer CAD basal cell CA S/P appendectomy [place] 5, complete up to 7 days of therapy - continue to monitor off antibiotics since he is at risk for nosocomial infections noted Dr. Srivastava's recommendations overall prognosis is poor
--- NOTE | 2017-04-24 18:17 | PN ---
DATE: 04/24/2017 PULMONARY PROGRESS NOTE REFERRING PHYSICIAN: Abhijeet Vigil MD. SUBJECTIVE: The patient is lying in the bed, very tired and sleepy, short of breath. is bedside. Used CPAP over 4 hours or so, comfortable on it, but at presently does not want it, does have a cough, unable to clear pulmonary secretion. No hemoptysis. No hematochezia. No hematuria. No diarrhea. No leg swelling reported. OBJECTIVE: GENERAL: In no acute distress. VITAL SIGNS: Temp is 98, heart rate is 86, respiratory rate is 30, blood pressure 148/77, pulse ox 95% on 40% oxygen. HEENT: Dry mucous membrane. Crowded airway. NECK: Supple. No JVD. LUNGS: Have a very poor airflow with wheezing. HEART: S1 and S2. ABDOMEN: Soft, nontender. No organomegaly. EXTREMITIES: There is a trace edema, has ankle edema. NEUROLOGICAL: Lethargic, sleepy, arousable. LABORATORY DATA: Shows hemoglobin 8.7, hematocrit 27.5, WBC 22,000, platelet count is 393. Sodium 144, potassium 3.5, chloride 99, bicarbonate 37, BUN 17, creatinine 0.6, glucose 119, calcium is 9.9, AST 34, ALT 31, alk phos is 58, albumin is 2.6. Microbiology: Blood culture, urine culture, there is no growth. MEDICATIONS: He is on Mucomyst 20% inhaled q. 6 hours, albuterol/Atrovent nebulizer q. 6 hours, p.r.n. Brovana inhaled twice a day, Carafate 1 g twice a day, Cepacol lozenges q. 3 hours p.r.n., Claritin 10 mg daily, Ecotrin 81 mg daily, Flomax 0.4 mg daily, Lasix is 20 mg q. 12 hours, Lexapro 5 mg daily, Megace is 400 mg daily, MiraLax 17 g daily, morphine 1.5 mg q. 3 hours p.r.n., also on morphine extended release 250 mg q. 12 hours, Mucinex [place] 600 mg q. 6 hours, nasal saline 2 sprays to each nostrils q. 4 hours, Protonix 40 mg daily, Pulmicort inhaled twice a day, quinine is 324 mg daily, also on Singulair 10 mg daily, Solu-Medrol 40 mg q. 6 hours, Spiriva inhaled daily, Tessalon Perles 100 mg 3 times a day, multivitamins daily, Tylenol p.r.n., Vaseline ointment to affected area, Xanax 0.25 mg q. 12 hours. IMPRESSION AND PLAN: Chronic obstructive lung disease, metastatic esophageal cancer, gastroesophageal reflux disease, right upper lobe cavitary lesion, also has left upper and right lower lobe pneumonia, cor pulmonale. Spoke to the patient and at the bedside. All the questions answered. The patient has a very poor prognosis. He is do not resuscitate and do not intubate. We will try high-flow nasal cannula oxygen 50 L with 50% oxygen, titrate to pulse ox 90. Continue inhaled bronchodilator, IV Solu-Medrol. Gastric prophylaxis. Continue morphine p.r.n., Xanax p.r.n. Overall, poor prognosis. Continue supportive care. Thank you and we will follow with you. Jesika Srivastava MD
== END 2017-04-24 12:46 | disposition hospice, inpatient (51) | DRG 871 ==
LOC: ED 16:59 → ERH 20:06 → 3RSO 22:42 → 2A 04-13 19:06 → 5RSO 04-18 19:08
PROVIDERS: ADMIT Family Medicine; ATTEND Family Medicine
DX: A41.9 Sepsis, unspecified organism (principal); J18.9 Pneumonia, unspecified organism; E44.0 Moderate protein-calorie malnutrition; J96.11 Chronic respiratory failure with hypoxia; C78.01 Secondary malignant neoplasm of right lung; C78.1 Secondary malignant neoplasm of mediastinum; C15.9 Malignant neoplasm of esophagus, unspecified; R64 Cachexia; K22.2 Esophageal obstruction; C78.7 Secondary malignant neoplasm of liver and intrahepatic bile duct; J44.1 Chronic obstructive pulmonary disease with (acute) exacerbation; C34.90 Malignant neoplasm of unspecified part of unspecified bronchus or lung; J44.0 Chronic obstructive pulmonary disease with (acute) lower respiratory infection; L97.419 Non-pressure chronic ulcer of right heel and midfoot with unspecified severity; L97.429 Non-pressure chronic ulcer of left heel and midfoot with unspecified severity; L03.116 Cellulitis of left lower limb; L03.115 Cellulitis of right lower limb; D63.8 Anemia in other chronic diseases classified elsewhere; I08.1 Rheumatic disorders of both mitral and tricuspid valves; R65.20 Severe sepsis without septic shock; Y95 Nosocomial condition; F17.200 Nicotine dependence, unspecified, uncomplicated; F41.9 Anxiety disorder, unspecified; G25.81 Restless legs syndrome; G89.3 Neoplasm related pain (acute) (chronic); I11.0 Hypertensive heart disease with heart failure; I25.10 Atherosclerotic heart disease of native coronary artery without angina pectoris; I27.81 Cor pulmonale (chronic); I50.9 Heart failure, unspecified; K21.9 Gastro-esophageal reflux disease without esophagitis; N40.0 Benign prostatic hyperplasia without lower urinary tract symptoms; R62.7 Adult failure to thrive; Z51.5 Encounter for palliative care; Z66 Do not resuscitate; Z79.52 Long term (current) use of systemic steroids; Z85.820 Personal history of malignant melanoma of skin; Z87.01 Personal history of pneumonia (recurrent); Z90.49 Acquired absence of other specified parts of digestive tract; Z92.3 Personal history of irradiation; Z98.61 Coronary angioplasty status; Z99.81 Dependence on supplemental oxygen; R09.82 Postnasal drip

== ENCOUNTER 2017-04-24 12:46 | Inpatient (IN) | payer OTHER ==
[2017-04-24] MEDS ORDERED: Morphine PCA 1 mg/ml (30ml) 30 ML IV PRN (13:50)
[2017-04-24] MEDS ORDERED: Saliva Substitute 44.3 ML PO PRN (13:54)
[2017-04-24] MEDS ORDERED: Morphine 2 mg/ml ISec IVP STA (14:00)
[2017-04-24] MEDS ORDERED: Capsaicin 0.025% Cream (60 gm) TOP SCH ×2 (14:15→14:30)
--- NOTE | 2017-04-24 14:58 | CP.PCM.HP ---
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 Patient remained on the floors for several days in which he was given medications to help with his breathing and pain. Patient was seen by palliative care nurse. After lengthy discussion with patient and family, patient decided to pursue hospice care. Patient is resting comfortably on high flow oxygen in his bed, with at bedside. Denies shortness of breath , nausea, vomiting, diarrhea, fever, chills, headache, syncope. 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, COPD, SIADH, GERD, and Melanoma Surgical Hx: Appendectomy Family Medical Hx: Noncontributory Social Hx: Former smoker for 1-2ppd x 40 years, denies alcohol or illicit drug use Allergies: NKDA Medications: Reviewed, as per MAR Present on Admission - Present on Admission Any Indicators Present on Admission: No Review of Systems - Review of Systems Review of Systems: 12 point ROS as per HPI, otherwise negative Past Patient History - Infectious Disease Hx of Infectious Diseases: None - Tetanus Immunizations Tetanus Immunization: Unknown - Past Social History Smoking Status: Former Smoker - CARDIAC Hx Cardiac Disorders: Yes - PULMONARY Hx Chronic Obstructive Pulmonary Disease (COPD): Yes (home o2 at 2LPM) - NEUROLOGICAL Hx Neurological Disorder: Yes (RESTLESS LEG SYNDROME) - HEENT Hx HEENT Problems: Yes (reading glasses) Hx Cataracts: Yes (b/l cat sx) Other/Comment: voice hoarse - RENAL Hx Chronic Kidney Disease: No - ENDOCRINE/METABOLIC Hx Endocrine Disorders: No - HEMATOLOGICAL/ONCOLOGICAL Hx Blood Disorders: Yes Hx Anemia: Yes Hx Cancer: Yes (esophogeal CA COMPLETED RADIATION) Hx Shingles: Yes (10/2016 right buttock to right groin) - INTEGUMENTARY Hx Dermatological Problems: Yes 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) Hx Melanoma: Yes (removed from back) Other/Comment: pt had shingles in 10/2015 r buttock around to r groin rash faded , "some" residual pain on lyrica (previous triage) - MUSCULOSKELETAL/RHEUMATOLOGICAL Hx Arthritis: Yes ("all over") - GASTROINTESTINAL Hx Gastrointestinal Disorders: Yes Hx Gastroesophageal Reflux: Yes HX Swallowing Problems: Yes - GENITOURINARY/GYNECOLOGICAL Hx Genitourinary Disorders: Yes Hx Prostate Problems: Yes (ENLARGED,BPH) - PSYCHIATRIC Hx Psychophysiologic Disorder: Yes (INSOMNIA) Hx Anxiety: Yes Hx Depression: Yes Hx Substance Use: No - SURGICAL HISTORY Hx Appendectomy: Yes Hx Mastectomy: No - ANESTHESIA Hx Anesthesia: Yes Hx Anesthesia Reactions: No Hx Malignant Hyperthermia: No Meds Allergies/Adverse Reactions: Allergies Allergy/AdvReac Type Severity Reaction Status Date / Time No Known Allergies Allergy Verified 04/24/17 15:04 Physical Exam - Constitutional Appears: Non-toxic, No Acute Distress, Cachectic - Head Exam Head Exam: ATRAUMATIC, NORMAL INSPECTION, NORMOCEPHALIC - ENT Exam ENT Exam: Mucous Membranes Moist - Neck Exam Neck exam: Positive for: Normal Inspection. Negative for: Lymphadenopathy - Respiratory Exam Respiratory Exam: Prolonged Expiratory Phase. absent: Rales, Rhonchi, Wheezes - Cardiovascular Exam Cardiovascular Exam: +S1, +S2 - GI/Abdominal Exam GI & Abdominal Exam: Normal Bowel Sounds, Soft. absent: Tenderness - Extremities Exam Extremities exam: Positive for: normal inspection. 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 Patient placed on Morphine drip and on high flow oxygen. Patient will also receive Relistor for constipation. He will also continue capsacin cream for left chest wall pain. Will continue to make patient comfortable. Plan discussed with Dr. Ferreira. Gianna, PGY-2
[2017-04-24] MEDS: MethylPREDNISolone 40 mg Vial IVP SCH ×2 (15:03→22:10)
[2017-04-24] MEDS: Capsaicin 0.075% Cream(60 gm) TOP SCH ×2 (15:03→17:17)
[2017-04-24] MEDS ORDERED: Pneumococcal 23-Valent Vaccine IM ONE (16:57)
[2017-04-24] MEDS ORDERED: Influenza Vaccine 60 mcg/0.5 mL SYR (4YR UP) IM ONE (16:57)
[2017-04-24 16:58] VITALS: BMI 16.0
[2017-04-24] MEDS: Albuterol 0.5% Inhal Sol (2.5 mg/0.5 ml) UD IH SCH (20:11)
[2017-04-25] MEDS: Albuterol 0.5% Inhal Sol (2.5 mg/0.5 ml) UD IH SCH ×4 (01:53→20:35)
[2017-04-25] MEDS: MethylPREDNISolone 40 mg Vial IVP SCH ×3 (05:36→22:38)
[2017-04-25] MEDS: Capsaicin 0.075% Cream(60 gm) TOP SCH ×2 (08:25→22:39)
[2017-04-25] MEDS ORDERED: Morphine PCA 1 mg/ml (30ml) 30 ML IV PRN ×4 (11:22→21:16)
--- NOTE | 2017-04-25 13:59 | CP.PCM.PN ---
Subjective - Date & Time of Evaluation Date of Evaluation: 04/25/17 Time of Evaluation: 13:56 - Subjective Subjective: Patient seen and examined at bedside. Patient resting comfortably in bed on BIPAP. Patient is lethargic this morning as per his . Morphine drip was started last night. Denies nausea, vomiting, diarrhea, fever, chills. Objective - Vital Signs/Intake and Output Vital Signs (last 24 hours): Temp Pulse Resp BP Pulse Ox 98 F 114 H 22 112/58 L 93 L 04/25/17 07:00 04/25/17 07:00 04/25/17 07:00 04/25/17 07:00 04/25/17 07:00 Intake and Output: 04/25/17 04/25/17 06:59 18:59 Intake Total 60 Output Total 200 Balance -140 - Medications Medications: Current Medications Acetaminophen (Tylenol 325mg Tab) 650 mg PO Q6H PRN PRN Reason: Fever >100.4 F Albuterol Sulfate (Albuterol 0.5% Inhal Rylee (2.5 Mg/0.5 Ml) Ud) 2.5 mg IH [id number] [facility] Last Admin: 04/25/17 01:53 Dose: 2.5 mg Capsaicin (Zostrix-Hp) 0.075 gm TOP Q3H [facility] Last Admin: 04/25/17 08:25 Dose: Not Given Morphine Sulfate (Morphine Open Hearth Helper 1 Mg/Ml) 30 mls @ 0.5 mls/hr IV PRN PRN; Protocol; 0.5 MG/HR PRN Reason: SCREW MACHINE HAND PER MD ORDER Last Admin: 04/25/17 13:43 Dose: 0.5 mg/hr, 0.5 mls/hr Lorazepam (Ativan) 0.25 mg IVP Q8H PRN; Protocol PRN Reason: Anxiety Methylprednisolone (Solu-Medrol) 40 mg IVP Q8H [facility] Last Admin: 04/25/17 13:33 Dose: 40 mg Saliva Substitute (Saliva Substitute) 15 ml PO Q3H PRN PRN Reason: Dry mouth - Constitutional Appears: Non-toxic, No Acute Distress - Head Exam Head Exam: ATRAUMATIC, NORMAL INSPECTION, NORMOCEPHALIC - ENT Exam ENT Exam: Mucous Membranes Dry - Respiratory Exam Respiratory Exam: Decreased Breath Sounds, NORMAL BREATHING PATTERN - Cardiovascular Exam Cardiovascular Exam: RRR, +S1, +S2 - GI/Abdominal Exam GI & Abdominal Exam: Soft, Normal Bowel Sounds. absent: Tenderness - Extremities Exam Extremities Exam: Normal Inspection. 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 Patient placed on Morphine drip and on high flow oxygen last night. Patient lethargic this morning, will hold morphine drip for 1 hour and resume drip at 0.5 mg per hour. He will also continue capsacin cream for left chest wall pain. Will continue to make patient comfortable. Plan discussed with Dr. Ferreira. Gianna, PGY-2
--- NOTE | 2017-04-25 14:17 | CP.PCM.PN ---
Subjective - Date & Time of Evaluation Date of Evaluation: 04/25/17 Time of Evaluation: 12:00 - Subjective Subjective: Lethargic, rouses when name is called. Objective - Vital Signs/Intake and Output Vital Signs (last 24 hours): Temp Pulse Resp BP Pulse Ox 98 F 114 H 22 112/58 L 93 L 04/25/17 07:00 04/25/17 07:00 04/25/17 07:00 04/25/17 07:00 04/25/17 07:00 Intake and Output: 04/25/17 04/25/17 06:59 18:59 Intake Total 60 Output Total 200 Balance -140 - Medications Medications: Current Medications Acetaminophen (Tylenol 325mg Tab) 650 mg PO Q6H PRN PRN Reason: Fever >100.4 F Albuterol Sulfate (Albuterol 0.5% Inhal Rylee (2.5 Mg/0.5 Ml) Ud) 2.5 mg IH [id number] ON LICENSE OF [facility] Last Admin: 04/25/17 01:53 Dose: 2.5 mg Capsaicin (Zostrix-Hp) 0.075 gm TOP Q3H ON LICENSE OF [facility] Last Admin: 04/25/17 08:25 Dose: Not Given Morphine Sulfate (Morphine Cooperative Education Director 1 Mg/Ml) 30 mls @ 0.5 mls/hr IV PRN PRN; Protocol; 0.5 MG/HR PRN Reason: EXTENSION EDUCATOR PER MD ORDER Last Admin: 04/25/17 13:43 Dose: 0.5 mg/hr, 0.5 mls/hr Lorazepam (Ativan) 0.25 mg IVP Q8H PRN; Protocol PRN Reason: Anxiety Methylprednisolone (Solu-Medrol) 40 mg IVP Q8H ON LICENSE OF [facility] Last Admin: 04/25/17 13:33 Dose: 40 mg Saliva Substitute (Saliva Substitute) 15 ml PO Q3H PRN PRN Reason: Dry mouth - Constitutional Appears: Chronically Ill - Eye Exam Eye Exam: Normal appearance, PERRL - ENT Exam ENT Exam: Mucous Membranes Moist, Normal Oropharynx - Respiratory Exam Respiratory Exam: Accessory Muscle Use, Decreased Breath Sounds, Wheezes - Cardiovascular Exam Cardiovascular Exam: REGULAR RHYTHM, +S1, +S2 - GI/Abdominal Exam GI & Abdominal Exam: Soft, Diminished Bowel Sounds - Skin Skin Exam: Dry, Pallor Assessment and Plan - Assessment and Plan (Free Text) Assessment: 71 year old male with history of COPD, esophageal cancer, pneumonia, who is admitted under [facility] services for management of intractable pain, dyspnea and xerostemia. The patient is lethargic. He was wake earlier this morning,requesting pain medication. Reminded that he has Morphine EXTENSION EDUCATOR. He also received scheduled dosing of Ativan. Continues to have dyspnea and accessory muscle use. Spoke with patients who is at bedside. Management of pain and dyspnea discussed with . She is concerned about her husbands lethargy. Will decrease dose of Morphine EXTENSION EDUCATOR as well as Ativan. Plan: Morphine continuos dose 0.5mg/hr with EXTENSION EDUCATOR of 0.25 mg every 30 minutes Ativan 0.25 mg every 8 hours as needed for restlessness and agitation. Solumedrol 40 mg every 8 hours. Albuterol IH every 3 hours as needed. Tylenol as needed for fever
[2017-04-25 19:54] VITALS: BP 130/69; PULSE 94; TEMP 98.9; O2SAT 99
[2017-04-26] MEDS: Albuterol 0.5% Inhal Sol (2.5 mg/0.5 ml) UD IH SCH ×2 (02:10→07:58)
[2017-04-26] MEDS: Capsaicin 0.075% Cream(60 gm) TOP SCH ×6 (06:57→20:40)
[2017-04-26] MEDS: MethylPREDNISolone 40 mg Vial IVP SCH ×3 (07:01→21:39)
[2017-04-26] MEDS ORDERED: Albuterol 0.083% Inhal Sol (2.5 mg/3 mL) UD ONE (07:35)
[2017-04-26] MEDS: Albuterol 0.083% Inhal Sol (2.5 mg/3 mL) UD INH SCH ×2 (13:24→21:44)
[2017-04-26] MEDS ORDERED: Morphine PCA 1 mg/ml (30ml) 30 ML IV PRN (17:34)
[2017-04-26] MEDS ORDERED: Morphine 2 mg/ml ISec IVP STA (17:37)
[2017-04-27] MEDS: Albuterol 0.083% Inhal Sol (2.5 mg/3 mL) UD INH SCH ×3 (03:10→13:24)
--- NOTE | 2017-04-27 04:42 | PN ---
DATE: ONCOLOGY PROGRESS NOTE LOCATION: The patient is in room 578, bed 2. The patient is currently on hospice. SUBJECTIVE: The patient is lethargic, arouses only when name is called. The patient is clinically doing poorly. The patient has a diagnosis of metastatic carcinoma of the esophagus. Primary problem is the progressively worsening COPD with multiple episodes of aspiration with multiple aspiration pneumonias, had been progressively worsening, becoming worse from both hypoxemia point of view and poor nutritional intake. After discussing with the patient and the family, we decided to not only make him a DNR, we decided to enter him in to hospice and have him on comfort measures alone. Patient is tachycardiac despite being on high-flow oxygen. VITAL SIGNS: T-max is 98.4, pulse is around 116 to 118 per minute, respirations 22, blood pressure is 112/58, pulse ox is 93% on high-flow oxygen. CURRENT MEDICATIONS: Reviewed. He is on Tylenol p.r.n., Albuterol Sulfate inhalation q.6 hours, Zostrix-HP to the left chest wall for relief of pain. He is on IV morphine sulfate 0.5 mL an hour, for making him comfortable he is on Ativan 0.25 mg IV q.8 hours, methylprednisolone 40 mg every q.8 hours, saliva substitute 15 mL q.3 hours p.r.n for dryness of the mouth. PHYSICAL EXAMINATION GENERAL: The patient is chronically ill. RESPIRATORY SYSTEM: Reveals patient is using his accessory muscles. Decreased breath sounds, and bilateral wheezes and bronchi. CARDIOVASCULAR SYSTEM: Reveals tachycardia. Skin is dry with pallor noted. EXTREMITIES: Reveal no cyanosis, clubbing or edema. Patient is comfortable with pain being controlled. Family and best friend and are at bedside all the time ASSESSMENT, NOTES AND PLAN: This is a 71-year-old male with history of advanced terminal chronic obstructive pulmonary disease , stage IV esophageal carcinoma, multiple episodes of aspiration pneumonia, currently admitted in to hospice for management of intractable pain, dyspnea and comfort measures. The patient is lethargic, but still responsive and he is on the IV CANE PUSHER morphine. We will continue supportive measures at this point in time. We will try to keep the patient comfortable without doing anything unnecessary that will make him more uncomfortable. Family is with him all the time. Prognosis at this time is terminal. Family counseled regarding the 's condition. María Ferreira MD [facility] # [id number]
[2017-04-27] MEDS: MethylPREDNISolone 40 mg Vial IVP SCH (09:24)
[2017-04-27 11:03] VITALS: RESP 21
[2017-04-27] MEDS ORDERED: MethylPREDNISolone 40 mg Vial IVP SCH (14:00)
--- NOTE | 2017-04-27 16:58 | CP.PCM.PRO ---
Pronouncement of Note - Clinical Findings Physical Exam: No Response Verbal/Painful Stimuli, Absent Heart & Breath Sounds , Absence of Vital Signs - Pronouncement Time Time of Pronouncement of : 16:40 - Notifications Pronouncement Notifications: Family Notified, Atending Notified - [place]: [id number] Additional Comments: Patient was on hospice care and .
--- NOTE | 2017-04-28 03:04 | PN ---
DATE: ONCOLOGY PROGRESS NOTE LOCATION: The patient is in room 578, bed 2. The patient is currently in hospice. SUBJECTIVE: The patient is semi-comatose. Clinically, doing poorly. Family is at the bedside. The patient had to have his Giraldo catheter inserted earlier this morning. He has a diagnosis of metastatic carcinoma of the esophagus. Primary problem is progressively worsening COPD with multiple episodes of aspiration and multiple aspiration pneumonia, have been progressively worsening, becoming worse from both hypoxemia point of view and poor nutritional status. After discussing with the patient and the family, we decided not to intubate or make him a DNR, decided to enter into hospice and have him on comfort measures alone. The patient is tachycardic despite being on high-flow oxygen. PHYSICAL EXAMINATION: GENERAL: patient is ill. VITAL SIGNS: At this point are stable. The patient is tachycardic, respirations 30 per minute, blood pressure is 112/58, and pulse ox is 93% on high-flow oxygen. RESPIRATORY SYSTEM: Reveals the patient to be using his accessory muscles with decreased breath sounds in the bilateral bases, and rhonchi. CARDIOVASCULAR SYSTEM: Reveals resting tachycardia. SKIN: Dry with pallor noted. EXTREMITIES: There is no cyanosis, clubbing, or edema. The patient is currently comfortable with pain being controlled. Family and are at bedside. MEDICATIONS: Current medications are reviewed. He is on Tylenol p.r.n., albuterol inhalation q. 6 hours, Zostrix-HP to the left chest wall for relief of pain. He is on IV morphine, on GAS APPLIANCE ADJUSTER continuous mode for making him comfortable. He is also on Ativan IV q. 8 hours along with methylprednisolone every 8 hours. He will have to keep his mouth wet. ASSESSMENT NOTES AND PLAN: A 71-year-old male with a history of advanced chronic obstructive pulmonary disease, stage IV esophageal carcinoma, multiple episodes of aspiration pneumonia, and currently admitted to hospice for management of intractable pain, dyspnea, on comfort measures. The patient is semi-comatose and is on IV GAS APPLIANCE ADJUSTER morphine for comfort. We will continue comfort measures at this point in time. End is imminent.. Prognosis is terminal. Family counseled regarding the patient's condition. María Ferreira MD [facility] # [id number]
--- NOTE | 2017-04-28 09:35 | DS ---
The patient was admitted on 04/24/2017 to hospice and the patient on 04/27/2017. HOSPITAL COURSE: This is a 71-year-old male with progressive advanced COPD with multiple episodes of aspiration with multiple aspiration pneumonia, this had been progressively worsening, became hypoxemic and in point of view of this and poor nutritional status, after discussing with the patient and the family, we decided to make him a DNR and we decided to enter him in the hospice. The patient also had a diagnosis of metastatic carcinoma of the esophagus stage IV. Primary problem had been worsening COPD and his respiratory status. After entering into the hospice, the patient was kept comfortable on IV narcotics, IV steroids and IV Ativan. The patient finally succumbed to his disease at 04:40 p.m. today on 04/27/2017. 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 María Ferreira MD
== END 2017-04-27 19:35 | DRG 374 ==
LOC: 5RSO 12:46
PROVIDERS: ADMIT Internal Medicine Hematology & Oncology; ATTEND Internal Medicine Hematology & Oncology
DX: C15.9 Malignant neoplasm of esophagus, unspecified (principal); J69.0 Pneumonitis due to inhalation of food and vomit; J96.91 Respiratory failure, unspecified with hypoxia; R40.20 Unspecified coma; R64 Cachexia; E22.2 Syndrome of inappropriate secretion of antidiuretic hormone; J44.9 Chronic obstructive pulmonary disease, unspecified; G25.81 Restless legs syndrome; K21.9 Gastro-esophageal reflux disease without esophagitis; N40.0 Benign prostatic hyperplasia without lower urinary tract symptoms; R62.7 Adult failure to thrive; Z66 Do not resuscitate; Z51.5 Encounter for palliative care; Z85.820 Personal history of malignant melanoma of skin; Z87.891 Personal history of nicotine dependence; Z90.49 Acquired absence of other specified parts of digestive tract; Z92.3 Personal history of irradiation; D64.9 Anemia, unspecified; M19.90 Unspecified osteoarthritis, unspecified site; G47.00 Insomnia, unspecified; F41.9 Anxiety disorder, unspecified; F32.89 Other specified depressive episodes; K11.7 Disturbances of salivary secretion